=== PATIENT | female | born 2000 | race Two or more races ===

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

== ENCOUNTER → 2021-01-20 13:29 | Outpatient (CLI) | payer OTHER, MEDICAID, SELFPAY | PROVIDERS: PCP Pediatrics; Referring Provider Pediatrics; Visit Provider Pediatrics | DX: Z20.822 Contact with and (suspected) exposure to COVID-19 (principal) | CPT/HCPCS: 87635; C9803; U0005; U0003 ==

== ENCOUNTER 2021-01-25 00:21 | Emergency (ER) | payer MEDICAID, SELFPAY ==
[2021-01-25 00:21] VITALS: BP 124/79; PULSE 77; RESP 18; TEMP 36.4; O2SAT 100; BMI 24.5
--- NOTE | 2021-01-25 01:26 | EKG12_ITS ---
Test Reason : CP Blood Pressure : / mmHG Vent. Rate : 079 BPM Atrial Rate : 079 BPM P-R Int : 130 ms QRS Dur : 068 ms QT Int : 382 ms P-R-T Axes : 061 060 014 degrees QTc Int : 438 ms Normal sinus rhythm with sinus arrhythmia Normal ECG Confirmed by SALLY COOL, HUBER ([id number]), city editor BRITTA SHI ([id number]) on 01/31/2021 6:28:00 AM Referred By: BAY Confirmed By:HUBER ZAVALA MD
--- NOTE | 2021-01-25 01:31 | EX.ED.DYSGE1 ---
HPI History of Present Illness Chief Complaint: Chest Pain Narrative Narrative: Patient is a 21-year-old female who stays for the past few days she has had intermittent bouts of palpitations and states she has sharp chest pain when this occurs. She denies any illicit drug use but does states she uses a decent amount of caffeine daily and also vapes nicotine daily. She states she feels the symptoms have slowly worsened and she is concerned this could be cardiac so she presents for evaluation [facility] Medical History Anxiety Asthma Depression Endometriosis Migraine Pelvic pain Pott disease Thyroid disease Home Medications dicyclomine [Bentyl] 10 mg PO TID PRN 11/22/20 [History Last Taken Unknown] Allergy/AdvReac Type Severity Reaction Status Date / Time silicone Allergy Rash Verified 11/22/20 10:16 lactose AdvReac Upset Verified 11/22/20 10:16 Stomach NASAL SPRAY Allergy Hives Uncoded 11/22/20 10:16 Social History Smoking Status: Current every day smoker tobacco type: cigarettes and e-cigarettes ROS ROS ED Constitutional Constitutional ED: Denies chills or fever(s) ENT ENT ED: Denies sore throat Cardiovascular Cardiovascular: Reports chest pain, palpitations and racing heartbeat Respiratory/Chest Respiratory/Chest: Denies cough or dyspnea Gastrointestinal Gastrointestinal: Denies abdominal pain, diarrhea, nausea or vomiting Genitourinary Genitourinary ED: Denies dysuria Musculoskeletal Musculoskeletal: Denies myalgias Integumentary Denies rash Neurologic Neurologic: Denies headache(s) Hematologic/Lymphatic Hematologic/Lymphatic: Denies easy bleeding or easy bruising EXAM Physical Exam Const Vital Signs: 01/25/21 00:21 Temperature 97.5 F L Temperature Source Temporal Pulse Rate 77 Respiratory Rate 18 Blood Pressure 124/79 H Blood Pressure Mean 94 Pulse Ox 100 Oxygen Delivery Method Room Air Positive well nourished and well developed General Appearance ED: well developed HEENT Reports moist mucous membranes Eyes PERRL and EOMs intact bilaterally Neck supple Neck Narrative: No nodular goiter noted along the thyroid Chest Wall palpation of chest normal Resp normal respiratory effort and clear to auscultation bilaterally Cardio regular rate and regular rhythm GI normal to inspection, nondistended, normoactive bowel sounds, non-tender and non-distended Auscultation: normoactive bowel sounds Palpation: soft Extremity normal to inspection Extremity Narrative: No asymmetric or pitting edema edema negative homicide bilaterally Neuro oriented x3 and CN's II-XII intact bilaterally Sensorium / Orientation: alert Motor Exam: strength 5/5 throughout Psych mental status grossly normal Skin no rashes or lesions noted MDM MDM MDM Narrative Medical decision making narrative: Patient presented to the ER with complaint of palpitations. She is low risk for cardiac disease but with her report of palpitations and chest discomfort we did perform a basic cardiac workup. EKG is sinus rhythm and labs revealed no clinically significant findings. Chest x-ray also reveals no acute lung pathology. She was kept on the monitor and remained in sinus rhythm for her entire ears today without any dysrhythmia changes noted. Therefore at this time she is safe for discharging and follow-up with her family doctor as well as bandoleer straightener stamper for further evaluation if symptoms persist Lab Data Attestation: I reviewed the patient's lab results. Labs: Laboratory Results - last 24 hr 01/25/21 01/25/21 01:35 01:35 WBC 7.1 RBC 5.09 Hgb 12.4 Hct 38.9 MCV 76.4 L MCH 24.4 L MCHC 31.9 L RDW Std Deviation 36.8 RDW Coeff of Anoop 13.2 Plt Count 349 MPV 8.5 Immature Gran % (Auto) 0.100 Neut % (Auto) 47.9 Lymph % (Auto) 40.1 [place] % (Auto) 10.5 H Eos % (Auto) 1.0 Baso % (Auto) 0.4 Absolute Neuts (auto) 3.4 Absolute Lymphs (auto) 2.83 Nucleated RBC % 0 Sodium 141 Potassium 3.7 Chloride 107 Carbon Dioxide 28.0 Anion Gap 6 BUN 10 Creatinine 0.82 Estim Creat Clear Calc 94.50 Est GFR (MDRD) Af Amer 115 Est GFR (MDRD) Non-Af 95 BUN/Creatinine Ratio 12.2 Glucose 82 Calcium 8.9 Magnesium 2.1 Troponin I High Sens 4 TSH 4.48 H Radiography Diagnostic Testing: Clinical Impression(s) from Imaging Studies Chest X-Ray 01/25/21 01:54 IMPRESSION: No demonstrated acute cardiopulmonary process. Electronically Signed: Carey Tomlinson MD at 2:14 EDT Tel , Service support , Discharge Plan Triage Chief Complaint: Chest Pain ED Provider: Bryant Reyes Dx/Rx/DC Orders Clinical Impression: Heart palpitations Instructions: ED Palpitations Prescriptions: No Action dicyclomine [Bentyl] 10 mg Capsule 10 mg PO TID PRN (Reason: Pain) RF: 0 Primary Care Provider: Maki Pringle Referrals: Maki Pringle MD [Primary Care Provider] - Disposition Disposition: Home, Self Care
[2021-01-25 01:39] LABS: Absolute Lymphocyte Count 2.83 X10^3/uL (0.83-4.51); Absolute Neutrophil Count 3.4 X10^3/uL (2.0-7.7); Basophil# 0.03 X10^3/uL; Basophil% 0.4 % (0-1); Eosinophil# 0.07 X10^3/uL; Hematocrit 38.9 % (37-47); Hemoglobin 12.4 g/dL (12.0-15.0); Lymphocyte # 2.83 X10^3/ul (0.83-4.51); Lymphocyte % 40.1 % (19-41); Mean Corp Hgb Conc 31.9 g/dL (32-36); Mean Corpuscular Hgb 24.4 pg (27.0-32.0); Mean Corpuscular Volume 76.4 fL (81-99); Mean Platelet Vol. 8.5 fl (6.2-12.0); Monocyte# 0.74 X10^3/uL; Monocyte% 10.5 % (0-10); NRBC Flagged by Analyzer 0 % (0-5); Neutrophil # 3.37 X10^3/uL (2.7-7.7); Neutrophil % 47.9 % (47-70); Platelet Count 349 K/mm3 (150-450); RBC Distribution Width CV 13.2 % (11.6-14.6); RBC Distribution Width SD 36.8 fl (35.1-43.9); Red Blood Count 5.09 M/mm3 (4.2-5.4); White Blood Count 7.1 K/mm3 (4.4-11.0)
--- NOTE | 2021-01-25 01:54 | RAD_ITS ---
STUDY: X-RAY CHEST REASON FOR EXAM: Female, 21 years old. chest pain TECHNIQUE: Frontal and lateral views of the chest. COMPARISON: None. FINDINGS: The lungs are clear and expanded. There is no demonstrated pleural abnormality. Normal size heart. Normal mediastinum and dennis. Normal visualized pulmonary arteries. Normal visualized aortic arch and descending thoracic aorta. There is a levoscoliosis of the thoracic spine. Normal visualized ribs, clavicles, and shoulders. There is no demonstrated abnormality of the visualized soft tissue structures of the upper abdomen. RAD/Chest PA and Lateral IMPRESSION: No demonstrated acute cardiopulmonary process. Electronically Signed: Carey Tomlinson MD at 2:14 EDT Tel , Service support ,
[2021-01-25 02:10] LABS: Anion Gap 6 (5-15); BUN 10 mg/dL (7-18); BUN/Creat Ratio 12.2 RATIO (10-20); Calcium,Total 8.9 mg/dL (8.5-10.1); Chloride 107 mmol/L (98-107); Creatinine, Serum 0.82 mg/dL (0.55-1.02); EST Glomerular Filtration Rate 95 mL/min (>60); Est Glom Filt Rate - Afr Amer 115 mL/min (>60); Glucose 82 mg/dL (74-106); Magnesium 2.1 mg/dL (1.6-2.6); Potassium 3.7 mmol/L (3.5-5.1); Sodium Level 141 mmol/L (136-145); Thyroid Stim Hormone (TSH) 4.48 uIU/mL (0.358-3.74); Troponin-I HS 4 pg/mL (3.0-54.0)
[2021-01-25 02:53] VITALS: BP 101/75; PULSE 66; RESP 22; O2SAT 99
== END 2021-01-25 02:54 | disposition home or self-care (01) ==
PROVIDERS: Emergency Provider Emergency Medicine; PCP Pediatrics
DX: R00.2 Palpitations (principal); F17.210 Nicotine dependence, cigarettes, uncomplicated; F32.9 Major depressive disorder, single episode, unspecified; F41.9 Anxiety disorder, unspecified; J45.909 Unspecified asthma, uncomplicated
CPT/HCPCS: 71046; 80048; 83735; 84443; 84484; 85025; 93005; 99283; A4216

== ENCOUNTER 2021-04-21 14:11 | Outpatient (CLI) | payer MEDICAID, SELFPAY ==
--- NOTE | 2021-04-21 14:14 | RAD_ITS ---
STUDY: X-RAY - ABDOMEN/PELVIS REASON FOR EXAM: Female, 21 years old. PAIN TECHNIQUE: Single AP view of the abdomen / pelvis. COMPARISON: None. FINDINGS: Normal visualized lung bases. There is an abundance of fecal material throughout the colon. The visualized liver, spleen and kidneys are grossly normal in size and morphology. Normal soft tissue structures. Normal visualized osseous structures. RAD/Abdomen Single View IMPRESSION: Large amount of fecal material is seen throughout the colon. Electronically Signed: Eugenio Weathers MD at 14:44 EST , Service support ,
== END 2021-04-21 23:59 | disposition short-term general hospital (02) ==
PROVIDERS: PCP Pediatrics; Referring Provider Pediatrics; Visit Provider Pediatrics
DX: R10.84 Generalized abdominal pain (principal)
CPT/HCPCS: 74018

== ENCOUNTER 2021-05-22 13:16 | Outpatient (CLI) | payer MEDICAID, SELFPAY | END 2021-05-22 23:59 | disposition home or self-care (01) | LOC: LAB.FUTURE 13:18 | PROVIDERS: PCP Pediatrics; Referring Provider Pediatrics; Visit Provider Pediatrics | DX: R10.84 Generalized abdominal pain (principal) ==

== ENCOUNTER 2021-06-14 20:37 | Emergency (ER) | payer MEDICAID, SELFPAY ==
[2021-06-14 20:38] VITALS: BP 133/85; PULSE 79; RESP 18; TEMP 36.3; O2SAT 100; BMI 28.3
--- NOTE | 2021-06-14 21:12 | EDS_ITS ---
HPI History of Present Illness Chief Complaint: General Illness Informant: patient Narrative Narrative: Patient presenting worsening occipital headache symptoms this evening. On and off symptoms for months. States shooting sensations lasting 3 minutes. Mild blurred vision. History of migraines. However states this feels a little different she had image studies she states 3 years ago. From records had an MRI that was normal. She recovering from a upper respiratory illness this past week had headache sinus congestion sore throat Home Covid negative urgent care 4 days ago flu Covid also negative. Sore throat is improving however headaches been worsening. History of anxiety and depression currently not taking medications. History of asthma. Denies cough or dyspnea. Last menstrual period 2 weeks ago. States has been having extreme nausea with her headaches. No photophobia. Prior similar symptoms: Yes PFSH PFSH Medical History Anxiety Asthma Depression Endometriosis Migraine Pelvic pain Pott disease Thyroid disease Home Medications albuterol sulfate INHALATION 06/14/21 [History Last Taken Unknown] epinephrine 06/14/21 [History Last Taken Unknown] prazosin 06/14/21 [History Last Taken Unknown] Allergy/AdvReac Type Severity Reaction Status Date / Time sertraline [From Zoloft] Allergy Anaphylaxis Verified 06/14/21 20:41 silicone Allergy Rash Verified 11/22/20 10:16 lactose AdvReac Upset Verified 11/22/20 10:16 Stomach NASAL SPRAY Allergy Hives Uncoded 11/22/20 10:16 Social History Smoking Status: Current every day smoker tobacco type: cigarettes and e- cigarettes ROS ROS ED Constitutional Constitutional ED: Denies chills, fever(s) or sweats Eyes Eyes: Denies change in vision ENT ENT ED: Denies dysphagia or sore throat Cardiovascular Cardiovascular: Denies chest pain, leg edema, palpitations or racing heartbeat Respiratory/Chest Respiratory/Chest: Denies cough, dyspnea or dyspnea on exertion Gastrointestinal Gastrointestinal: Reports nausea; Denies abdominal pain, diarrhea or vomiting Genitourinary Genitourinary ED: Denies dysuria, hematuria or urinary frequency Musculoskeletal Musculoskeletal: Denies back pain, extremity pain or neck pain Integumentary Denies rash or wounds Neurologic Neurologic: Reports headache(s); Denies paresthesias or weakness EXAM Physical Exam Const Vital Signs: 06/14/21 20:38 06/14/21 20:42 Temperature 97.3 F L Temperature Source Temporal Pulse Rate 79 Respiratory Rate 18 Respiratory Effort Normal Respiratory Pattern Normal Blood Pressure 133/85 H Blood Pressure Mean 101 Pulse Ox 100 Oxygen Delivery Method Room Air Positive well nourished and well developed General Appearance ED: well developed and NAD HEENT Reports moist mucous membranes normocephalic and atraumatic Eyes PERRL, EOMs intact bilaterally and conjunctivae normal General Eye ED: Yes normal appearance of both eyes Neck no lymphadenopathy and supple Neck Narrative: No meningismus. General: Negative for tenderness Chest Wall Chest: Negative for tenderness Resp normal respiratory effort and normal air movement Effort and Inspection: symmetric chest movement; Negative for respiratory distress Cardio regular rate, regular rhythm and no murmurs Peripheral Pulses: pulses 2+ throughout GI normal to inspection, nondistended, normoactive bowel sounds and non-tender Palpation: Negative for guarding or rebound tenderness present Back/Spine no CVA tenderness and no thoracic nor lumbar tenderness Extremity normal to inspection General Extremety ED: Negative for edema or tenderness General Extremity: Negative for edema Neuro oriented x3 and no sensory deficits noted Sensorium / Orientation: awake and alert Skin no rashes or lesions noted and no wounds MDM MDM MDM Narrative Medical decision making narrative: Patient vital stable no focal deficits no meningismus. Reports migraine symptoms little different than previously. She has been having on and off symptoms for months. Discussed imaging for evaluation due to different symptoms she agreed. She is treated with IV fluids Reglan Benadryl however reported per nursing patient became more anxious stating she wanted to leave. I discussed with the patient this possibly side effects of medications and would give more Benadryl. She understands this. She is alert and oriented x3 she declined any additional medications. She states nursing told her CT scan result to be 2 hours from results and she did not want to stay in the department for this long. She is currently capable of making decisions for herself, patient signed out AGAINST MEDICAL ADVICE. Discussed returning for reevaluation. Note she did have a normal MRI of her brain in 2019. Discharge Plan Triage Chief Complaint: General Illness ED Provider: Pete Basilio Dx/Rx/DC Orders Clinical Impression: Headache Instructions: Self-Care for Headaches Prescriptions: No Action prazosin 1 mg capsule RF: 0 epinephrine 0.3 mg/0.3 mL auto-injector RF: 0 albuterol sulfate 90 mcg/actuation HFA aerosol inhaler INHALATION RF: 0 Primary Care Provider: Care Physician,No Primary Referrals: Sury Catherine [NON-STAFF] - 1 Day Care Physician,No Primary [Primary Care Provider] - Activity Restrictions/Additional Instructions: You signed out AGAINST MEDICAL ADVICE. Return if you would like reevaluation. Disposition Disposition: Against Medical Advice Discharge Date/Time: 06/14/21 21:51
[2021-06-14] MEDS: 0.9% Normal Saline 1,000 ML 999 ML IV (21:20)
[2021-06-14] MEDS: DiphenhydrAMINE 50 MG/ML Syringe 25 MG IV (21:20)
[2021-06-14] MEDS: Metoclopramide 10 MG/2 ML Vial IV (21:20)
== END 2021-06-14 21:51 | disposition left against medical advice (07) ==
PROVIDERS: Emergency Provider Emergency Medicine; Visit Provider Emergency Medicine
DX: J02.9 Acute pharyngitis, unspecified (principal); R51.9 Headache, unspecified; F17.210 Nicotine dependence, cigarettes, uncomplicated; F41.9 Anxiety disorder, unspecified; R11.0 Nausea
CPT/HCPCS: 96361; 96374; 96375; 99282; J7030; A4216

== ENCOUNTER 2021-07-15 13:57 | Emergency (ER) | payer MEDICAID, SELFPAY ==
[2021-07-15 13:58] VITALS: BP 153/98; PULSE 81; RESP 18; TEMP 36.7; O2SAT 96; BMI 29.0
--- NOTE | 2021-07-15 14:12 | EDS_ITS ---
HPI History of Present Illness Chief Complaint: Hypertension Informant: patient Onset/Context/Timing Onset: Today Current Severity: Mild Maximum Severity: Mild Narrative Narrative: 21-year-old female history of anxiety and depression. Pots syndrome. States that today she had elevated blood pressure. She had a mild nosebleed which is since resolved. No history of hypertension. She denies other complaints. Prior similar symptoms: No Recent Illness/Hospitalization: No PFSH PFSH Medical History Anxiety Asthma Depression Endometriosis Migraine Pelvic pain Pott disease Thyroid disease Home Medications albuterol sulfate INHALATION 06/14/21 [History Last Taken Unknown] epinephrine 06/14/21 [History Last Taken Unknown] prazosin 06/14/21 [History Last Taken Unknown] Allergy/AdvReac Type Severity Reaction Status Date / Time sertraline [From Zoloft] Allergy Anaphylaxis Verified 07/15/21 14:00 silicone Allergy Rash Verified 07/15/21 14:00 lactose AdvReac Upset Verified 07/15/21 14:00 Stomach NASAL SPRAY Allergy Hives Uncoded 07/15/21 14:00 Social History Smoking Status: Current every day smoker tobacco type: cigarettes and e-ci garettes ROS ROS ED ROS Narrative Nosebleed. Review of Systems ROS Unobtainable: Denies due to encephalopathy Constitutional Constitutional ED: Denies fever(s) Eyes Eyes: Denies change in vision ENT ENT ED: Denies ear pain Cardiovascular Cardiovascular: Denies chest pain Respiratory/Chest Respiratory/Chest: Denies dyspnea Gastrointestinal Gastrointestinal: Denies abdominal pain Genitourinary Genitourinary ED: Denies dysuria Musculoskeletal Musculoskeletal: Denies myalgias Integumentary Denies rash Neurologic Neurologic: Reports headache(s) Psychiatric Psychiatric: Denies depression Endocrine Endocrinology: Denies polyuria Allergic/Immunologic Allergic/Immunologic ED: Denies urticaria EXAM Physical Exam Narrative Exam Narrative: 21-year-old female no acute distress. Sitting upright in bed. Blood pressure is elevated at 153/98 otherwise unremarkable. H EENT exam unremarkable atraumatic. Pupils round reactive light. No facial droop. Normal speech. Lungs clear. Heart regular rhythm. Abdomen soft nontender. Moving all 4 extremities. No edema. Neurologically awake and alert with no focal motor deficits. NIH is 0. Const Vital Signs: 07/15/21 13:58 Temperature 98.1 F Temperature Source Temporal Pulse Rate 81 Respiratory Rate 18 Blood Pressure 153/98 H Blood Pressure Mean 116 Pulse Ox 96 Positive well nourished and well developed; Negative for obese, cachectic, contractures or unkempt General Appearance ED: well developed and NAD; Negative for unkempt, cachectic, contractures, cyanotic, diaphoretic or pallor Nutritional Appearance: Negative for cachectic or obese HEENT Reports moist mucous membranes Negative for trauma or tenderness Eyes PERRL and EOMs intact bilaterally General Eye ED: Negative for pale conjunctiva or scleral icterus Neck no lymphadenopathy, supple and no JVD General: Negative for tenderness Chest Wall inspection of chest normal and palpation of chest normal Resp normal respiratory effort and clear to auscultation bilaterally Effort and Inspection: Negative for pain with movement Auscultation: Negative for rales, rhonchi or wheezes Cardio regular rate, regular rhythm, S1 normal heart sound, S2 normal heart sound and no murmurs GI normal to inspection, nondistended, normoactive bowel sounds, non-tender, non- distended and no masses Auscultation: normoactive bowel sounds Palpation: soft; Negative for tender or guarding Back/Spine no CVA tenderness General Back: Negative for CVA tenderness Extremity normal to inspection General Extremety ED: Negative for edema or tenderness General Extremity: Negative for edema Neuro oriented x3 and CN's II-XII intact bilaterally Sensorium / Orientation: alert; Negative for orientation impaired, lethargic or stuporous Motor Exam: strength 5/5 throughout Psych mental status grossly normal Appearance: Negative for unkempt Attitude: No agitated Mood & Affect: Negative for depressed, anxious or tearful Skin no rashes or lesions noted and no wounds General Skin Exam: Negative for jaundice or pallor MDM MDM MDM Narrative Medical decision making narrative: 21-year-old with elevated blood pressure without history. Exam benign. We will recheck the blood pressure. I explained to her she normally does not blood pressure problems. She can log these at home and follow-up with her primary care physician. Her exam otherwise is unremarkable. There is no bleeding of her nose at this time. Discharge Plan Triage Chief Complaint: Hypertension ED Provider: Ricco Bridges Dx/Rx/DC Orders Clinical Impression: BP (high blood pressure), Acute anterior epistaxis Instructions: ED Hypertension, To Be Confirmed, ED Epistaxis (Adult) Prescriptions: No Action prazosin 1 mg capsule RF: 0 epinephrine 0.3 mg/0.3 mL auto-injector RF: 0 albuterol sulfate 90 mcg/actuation HFA aerosol inhaler INHALATION RF: 0 Primary Care Provider: Care Physician,No Primary Referrals: Care Physician,No Primary [Primary Care Provider] - Sury Catherine [NON-STAFF] - 1 Week Activity Restrictions/Additional Instructions: Log your blood pressures twice daily. Follow-up with your primary care physician. I would not start you on blood pressure medication at this time. If the nose rebleeds hold direct pressure for 20 minutes. If unable to stop return. Disposition Disposition: Home, Self Care
[2021-07-15 14:18] VITALS: BP 143/81
[2021-07-15 14:19] VITALS: BP 143/81
== END 2021-07-15 14:26 | disposition home or self-care (01) ==
LOC: ED 14:25
PROVIDERS: Emergency Provider Emergency Medicine; Visit Provider Emergency Medicine
DX: R04.0 Epistaxis (principal); F41.9 Anxiety disorder, unspecified; F17.210 Nicotine dependence, cigarettes, uncomplicated; R03.0 Elevated blood-pressure reading, without diagnosis of hypertension
CPT/HCPCS: 99282

== ENCOUNTER 2021-07-31 15:44 | Emergency (ER) | payer MEDICAID, SELFPAY ==
[2021-07-31 15:45] VITALS: BP 152/92; PULSE 92; RESP 14; TEMP 36.6; O2SAT 100; BMI 28.8
--- NOTE | 2021-07-31 17:08 | EDS_ITS ---
HPI History of Present Illness Chief Complaint: Hypertension Informant: patient Onset/Context/Timing Onset: Month(s) Context: Gradual Onset Timing: Continuous Quality: Stabbing Location: Left chest Worsened by: Nothing Relieved by: Nothing Narrative Narrative: Patient presents with elevated blood pressure that has been getting worse over the past month. Patient states she checked her blood pressure at home today it was 156/138. Patient is on prazosin which has not been helping her blood pressures. Patient admits to some stabbing pain in her left chest. Patient denies nothing makes it better nothing makes it worse. Patient admits to some shortness of breath. Patient admits to some nausea. Patient also admits to some pain in her head, neck, and back. Patient denies any fevers or chills. PFSH PFS Medical History Anxiety Asthma Depression Endometriosis Migraine Pelvic pain Pott disease Thyroid disease Home Medications albuterol sulfate 2 puff INHALATION PRN PRN 06/14/21 [History Last Taken Unknown] epinephrine 1 mg IM PRN PRN 06/14/21 [History Last Taken Unknown] prazosin 1 mg PO BID 06/14/21 [History Last Taken Unknown] aripiprazole 2 mg PO QHS 07/31/21 [History Last Taken Unknown] ferrous sulfate 325 mg PO DAILY 07/31/21 [History Last Taken Unknown] Allergy/AdvReac Type Severity Reaction Status Date / Time sertraline [From Zoloft] Allergy Anaphylaxis Verified 07/31/21 15:47 silicone Allergy Rash Verified 07/31/21 15:47 lactose AdvReac Upset Verified 07/31/21 15:47 Stomach NASAL SPRAY Allergy Hives Uncoded 07/31/21 15:47 Social History Smoking Status: Current every day smoker tobacco type: cigarettes and e- cigarettes ROS ROS ED Constitutional Constitutional ED: Denies chills or fever(s) Eyes Eyes: Denies blurry vision or change in vision ENT ENT ED: Denies rhinorrhea or sore throat Cardiovascular Cardiovascular: Reports chest pain; Denies palpitations Respiratory/Chest Respiratory/Chest: Reports dyspnea; Denies cough Gastrointestinal Gastrointestinal: Reports nausea; Denies vomiting Genitourinary Genitourinary ED: Denies dysuria or hematuria Musculoskeletal Musculoskeletal: Reports back pain and neck pain Integumentary Denies abscess or rash Neurologic Neurologic: Reports headache(s); Denies weakness Allergic/Immunologic Allergic/Immunologic ED: Denies mouth swelling or urticaria EXAM Physical Exam Const Vital Signs: 07/31/21 15:45 07/31/21 17:55 07/31/21 19:05 Temperature 97.8 F Temperature Source Temporal Pulse Rate 92 79 83 Respiratory Rate 14 27 H 24 H Blood Pressure 152/92 H 138/92 H 118/83 H Blood Pressure Mean 112 107 94 Pulse Ox 100 99 99 Oxygen Delivery Method Room Air Room Air Room Air Positive well nourished and well developed General Appearance ED: well developed HEENT Reports moist mucous membranes Neck supple and no JVD Chest Wall Chest Narrative: There is tenderness to palpation over the left anterior chest wall. Resp normal respiratory effort and clear to auscultation bilaterally Cardio regular rate, regular rhythm and no murmurs GI normal to inspection, nondistended, normoactive bowel sounds and non-tender Palpation: soft Extremity normal to inspection General Extremety ED: Negative for edema or tenderness General Extremity: Negative for edema Neuro oriented x3, CN's II-XII intact bilaterally and no sensory deficits noted Sensorium / Orientation: alert Motor Exam: strength 5/5 throughout Psych mental status grossly normal Skin no rashes or lesions noted MDM MDM MDM Narrative Medical decision making narrative: EKG was obtained. On my interpretation, it showed a normal sinus rhythm with a rate of 76. [place] interval, QRS interval, and QTc intervals were all normal. [place] was normal. There are no acute ST or T wave changes. Portable 1 view chest x-ray was obtained. On my interpretation, lung [place] are clear. There is normal cardiac silhouette. Bony thorax is normal. There is no acute process noted. Radiologist also interpreted the x- ray and agrees. CBC was within normal limits. Comprehensive metabolic profile was within normal limits. High-sensitivity troponin was less than 3. Urinalysis does not show any evidence of urinary tract infection or hematuria. Patient's blood pressure was 118/83 on reevaluation. Patient is feeling better. Patient was instructed to continue to monitor her blood pressures and follow-up with her primary care physician in 3 to 5 days for further evaluation and management of her blood pressure. Patient understood and was agreeable with the plan. All questions were answered. Lab Data Attestation: I reviewed the patient's lab results. Labs: Laboratory Results - last 24 hr 07/31/21 07/31/21 07/31/21 16:15 16:15 17:30 WBC 6.0 RBC 5.32 Hgb 13.2 Hct 41.0 MCV 77.1 L MCH 24.8 L MCHC 32.2 RDW Std Deviation 36.9 RDW Coeff of Anoop 13.2 Plt Count 390 MPV 8.7 Immature Gran % (Auto) 0.200 Neut % (Auto) 61.2 Lymph % (Auto) 31.0 [place] % (Auto) 7.1 Eos % (Auto) 0.3 Baso % (Auto) 0.2 Absolute Neuts (auto) 3.7 Absolute Lymphs (auto) 1.87 Nucleated RBC % 0 Sodium 139 Potassium 3.4 L Chloride 108 H Carbon Dioxide 24.0 Anion Gap 7 BUN 7 Creatinine 0.77 Estim Creat Clear Calc 100.64 Est GFR (MDRD) Af Amer 122 Est GFR (MDRD) Non-Af 101 BUN/Creatinine Ratio 9.1 L Glucose 83 Calcium 9.0 Total Bilirubin 0.20 AST 12 L ALT 20 Alkaline Phosphatase 106 Troponin I High Sens < 3 L Total Protein 7.6 Albumin 3.5 Globulin 4.1 Albumin/Globulin Ratio 0.9 Urine Color Yellow Urine Clarity Clear Urine pH 7.0 Ur Specific [place] 1.010 Urine Protein Negative Urine Glucose (UA) Normal Urine Ketones Negative Urine Occult Blood Negative Urine Nitrite Negative Urine Bilirubin Negative Urine Urobilinogen Normal Ur Leukocyte Esterase 100 H Urine RBC 0 SEEN Urine WBC 0-5 SEEN Ur Squamous Epith Cells 0-5 SEEN Urine Bacteria 0 SEEN Urine Mucus 0 SEEN Radiography Chest X-Ray - ED: 1 View, Read by ED Physician, Read by Radiologist and No Acute Disease Diagnostic Testing: Clinical Impression(s) from Imaging Studies Chest X-Ray 07/31/21 17:24 IMPRESSION: No acute radiographic abnormalities. Electronically Signed: Karthik Sanchez MD at 17:43 EDT , EKG Initial EKG: Attestation: I personally reviewed and interpreted this EKG as follows: Interpretation: Sinus Rhythm (76) and No Acute Injury Pattern Discharge Plan Triage Chief Complaint: Hypertension ED Provider: Alexei Chakraborty Dx/Rx/DC Orders Clinical Impression: Elevated blood pressure reading, Hypokalemia Instructions: ED Hypertension, Established Prescriptions: No Action prazosin 1 mg capsule 1 mg PO BID RF: 0 epinephrine 0.3 mg/0.3 mL auto-injector 1 mg IM PRN PRN (Reason: Allergic Reaction) RF: 0 albuterol sulfate 90 mcg/actuation HFA aerosol inhaler 2 puff INHALATION PRN PRN (Reason: Wheezing) RF: 0 ferrous sulfate 325 mg (65 mg iron) tablet,delayed release (DR/EC) 325 mg PO DAILY RF: 0 aripiprazole 2 mg tablet 2 mg PO QHS RF: 0 Primary Care Provider: Sury Catherine Referrals: Sury Catherine [Primary Care Provider] - 3-5 Days Disposition Disposition: Home, Self Care
--- NOTE | 2021-07-31 17:13 | EKG12_ITS ---
Test Reason : HYPERTENSION Blood Pressure : / mmHG Vent. Rate : 076 BPM Atrial Rate : 076 BPM P-R Int : 142 ms QRS Dur : 068 ms QT Int : 364 ms P-R-T Axes : 049 033 001 degrees QTc Int : 409 ms Normal sinus rhythm with sinus arrhythmia Normal ECG Confirmed by REBECCA COOL, YOHANNES ([id number]), features editor BRITTA SHI ([id number]) on 08/01/2021 9:01:54 AM Referred By: DEVONTE Confirmed By:YOHANNES FERNANDEZ MD
--- NOTE | 2021-07-31 17:24 | RAD_ITS ---
INDICATION: Chest pain EXAMINATION/TECHNIQUE: X-RAY - XR Chest 1 View COMPARISON: 01/25/2021. FINDINGS: The lungs are clear. The cardiomediastinal silhouette is unremarkable. No pleural effusion or pneumothorax. No acute osseous abnormalities. RAD/Chest 1 View (Portable) IMPRESSION: No acute radiographic abnormalities. Electronically Signed: Karthik Sanchez MD at 17:43 EDT ,
[2021-07-31 17:28] LABS: Absolute Lymphocyte Count 1.87 X10^3/uL (0.83-4.51); Absolute Neutrophil Count 3.7 X10^3/uL (2.0-7.7); Basophil# 0.01 X10^3/uL; Basophil% 0.2 % (0-1); Eosinophil# 0.02 X10^3/uL; Eosinophils% 0.3 % (0-5); Hemoglobin 13.2 g/dL (12.0-15.0); Lymphocyte # 1.87 X10^3/ul (0.83-4.51); Mean Corp Hgb Conc 32.2 g/dL (32-36); Mean Corpuscular Hgb 24.8 pg (27.0-32.0); Mean Corpuscular Volume 77.1 fL (81-99); Mean Platelet Vol. 8.7 fl (6.2-12.0); Monocyte# 0.43 X10^3/uL; Monocyte% 7.1 % (0-10); NRBC Flagged by Analyzer 0 % (0-5); Neutrophil % 61.2 % (47-70); Platelet Count 390 K/mm3 (150-450); RBC Distribution Width CV 13.2 % (11.6-14.6); RBC Distribution Width SD 36.9 fl (35.1-43.9); Red Blood Count 5.32 M/mm3 (4.2-5.4)
[2021-07-31 17:43] LABS: ALB/GLOB Ratio 0.9 RATIO (0.9-2.4); AST(SGOT) 12 U/L (15-37); Alanine Aminotransfer ALT/SGPT 20 U/L (13-56); Albumin, Serum 3.5 g/dL (3.2-5.0); Alkaline Phosphatase 106 U/L (45-117); Anion Gap 7 (5-15); BUN 7 mg/dL (7-18); BUN/Creat Ratio 9.1 RATIO (10-20); Chloride 108 mmol/L (98-107); Creatinine, Serum 0.77 mg/dL (0.55-1.02); EST Glomerular Filtration Rate 101 mL/min (>60); Est Glom Filt Rate - Afr Amer 122 mL/min (>60); Estimated Creatinine Clearance 100.64 ml/min; Globulin 4.1 g/dL (2.2-4.2); Glucose 83 mg/dL (74-106); Potassium 3.4 mmol/L (3.5-5.1); Protein, Total 7.6 g/dL (6.4-8.2); Sodium Level 139 mmol/L (136-145); Troponin-I HS < 3 pg/mL (3.0-54.0)
[2021-07-31 17:51] LABS: Bacteria 0 SEEN /hpf (None Seen); Mucous, Urine 0 SEEN /hpf (<or=2+); Red Blood Cells-Urine 0 SEEN /hpf (0-5)
[2021-07-31 17:52] LABS: Color, Urine Yellow (Yellow); Glucose, Dipstick Normal (Normal); Ketone-Dipstick Negative (Negative); Leukocyte Esterase-Dipstick 100 /ul (Negative); Nitrite-Dipstick Negative (Negative); Occult Blood-Urine Negative /ul (Negative); Protein-Dipstick Negative (Negative); Urine Bilirubin Dipstick Negative (Negative); Urine Clarity Clear (Clear); Urine Urobilinogen Normal (Normal)
[2021-07-31 17:55] VITALS: BP 138/92; PULSE 79; RESP 27; O2SAT 99
[2021-07-31 17:58] LABS: Squamous Epithelial Cells - UA 0-5 SEEN /hpf (5-10); White Blood Cells 0-5 SEEN /hpf (0-5)
[2021-07-31 19:05] VITALS: BP 118/83; PULSE 83; RESP 24; O2SAT 99
[2021-07-31 19:52] VITALS: BP 121/78; PULSE 103
== END 2021-07-31 20:17 | disposition home or self-care (01) ==
PROVIDERS: Emergency Provider Emergency Medicine; Visit Provider Emergency Medicine
DX: R03.0 Elevated blood-pressure reading, without diagnosis of hypertension (principal); M54.9 Dorsalgia, unspecified; E87.6 Hypokalemia; F17.210 Nicotine dependence, cigarettes, uncomplicated; R51.9 Headache, unspecified; R11.0 Nausea; R06.02 Shortness of breath; J45.909 Unspecified asthma, uncomplicated
CPT/HCPCS: 71045; 80053; 81001; 84484; 85025; 93005; 99283

== ENCOUNTER → 2021-08-14 | Outpatient (CLI) | payer MEDICAID, SELFPAY ==
--- NOTE | 2021-08-14 11:35 | RAD_ITS ---
STUDY: X-RAY - ABDOMEN/PELVIS REASON FOR EXAM: Female, 21 years old. UNSPECIFIED ABDOMINAL PAIN TECHNIQUE: COMPARISON: None. FINDINGS: Normal visualized lung bases. There is an unremarkable bowel gas pattern. There is no demonstrated free abdominal air. The visualized liver, spleen and kidneys are grossly normal in size and morphology. Normal soft tissue structures. Normal visualized osseous structures. RAD/Abd Decub and/or Erect(Portabl IMPRESSION: Normal x-ray examination of the abdomen and pelvis. Electronically Signed: Robert Wu MD at 2:58 EDT ,
== END | disposition home or self-care (01) ==
LOC: RAD 11:28
PROVIDERS: Visit Provider Nurse Practitioner Adult Health
DX: R10.9 Unspecified abdominal pain (principal)
CPT/HCPCS: 74019

== ENCOUNTER 2021-09-07 20:13 | Emergency (ER) | payer MEDICAID, SELFPAY ==
[2021-09-07 20:14] VITALS: BP 146/91; PULSE 86; RESP 15; TEMP 36.8; O2SAT 100; BMI 27.8
--- NOTE | 2021-09-07 21:01 | EDS_ITS ---
HPI History of Present Illness Chief Complaint: Headache Narrative Narrative: 21-year-old female presenting with chronic headaches. She states has been going on for years, since she was a child. She was told when she was a child she had migraines. She did follow-up originally with a neurologist but states that her dates got switched around and she never followed up. She saw her primary care physician 3 weeks ago who scheduled a neurology appointment with a neurologist at [facility]. Patient states that this will be in September. She has had MRIs and CAT scans of her brain and there has been no findings. Patient has not had a fever, chills. She states that occasionally she feels lightheaded. She states she had COVID-19 3 weeks ago and she still has a persistent cough but is not short of breath. She describes her sputum is clear. [facility] Medical History Anxiety Asthma Depression Endometriosis Migraine Pelvic pain Pott disease Thyroid disease Home Medications albuterol sulfate 2 puff INHALATION PRN PRN 06/14/21 [History Last Taken Unknown] epinephrine 1 mg IM PRN PRN 06/14/21 [History Last Taken Unknown] prazosin 1 mg PO BID 06/14/21 [History Last Taken Unknown] aripiprazole 2 mg PO QHS 07/31/21 [History Last Taken Unknown] ferrous sulfate 325 mg PO DAILY 07/31/21 [History Last Taken Unknown] Allergy/AdvReac Type Severity Reaction Status Date / Time sertraline [From Zoloft] Allergy Anaphylaxis Verified 09/07/21 20:16 silicone Allergy Rash Verified 09/07/21 20:16 lactose AdvReac Upset Verified 09/07/21 20:16 Stomach NASAL SPRAY Allergy Hives Uncoded 09/07/21 20:16 Social History Smoking Status: Current every day smoker tobacco type: cigarettes and e- cigarettes ROS ROS ED Constitutional Constitutional ED: Denies chills or fever(s) Eyes Eyes: Denies blurry vision, diplopia or other ENT ENT ED: Denies rhinorrhea Cardiovascular Cardiovascular: Denies chest pain or palpitations Respiratory/Chest Respiratory/Chest: Denies cough or dyspnea Gastrointestinal Gastrointestinal: Denies abdominal pain, nausea or vomiting Genitourinary Genitourinary ED: Denies dysuria or hematuria Musculoskeletal Musculoskeletal: Denies arthralgias or myalgias Integumentary Denies rash Neurologic Neurologic: Reports headache(s); Denies weakness Psychiatric Psychiatric: Denies anxiety or depression EXAM Physical Exam Const Vital Signs: 09/07/21 20:14 Temperature 98.2 F Temperature Source Temporal Pulse Rate 86 Respiratory Rate 15 Blood Pressure 146/91 H Blood Pressure Mean 109 Pulse Ox 100 Oxygen Delivery Method Room Air Positive well nourished General Appearance ED: NAD HEENT Reports normocephalic and moist mucous membranes atraumatic Eyes PERRL and EOMs intact bilaterally Neck no lymphadenopathy, supple and no meningeal signs Resp normal respiratory effort and clear to auscultation bilaterally Cardio regular rate and regular rhythm GI non-tender Palpation: soft Neuro oriented x3, CN's II-XII intact bilaterally and no sensory deficits noted Sensorium / Orientation: awake and alert Speech: speech normal Motor Exam: strength 5/5 throughout Psych mental status grossly normal Skin Lesions: no lesions Rashes: no rashes MDM MDM MDM Narrative Medical decision making narrative: Patient presenting with chronic intermittent headaches which have been around since he is a child. [facility] in [facility]. She has no red flag signs or symptoms associated with a headache. She states that she does not have a history of migraines although it is listed in her medical history. When I asked her about this she states this was distant as a child. Patient also complains of persistent cough however on exam her lungs are clear. Oxygen is 100% on room air. Respiratory 15. I do not believe she needs any imaging here today. I recommended that she follow-up with a neurologist and her primary care physician. She was amenable to this. All questions were answered. Discharge stable condition. Impression: 1. Headache 2. Cough Lab Data Attestation: I reviewed the patient's lab results. Discharge Plan Triage Chief Complaint: Headache ED Provider: Jaylen Delgado Dx/Rx/DC Orders Instructions: ED Headache Unspecified Prescriptions: No Action prazosin 1 mg capsule 1 mg PO BID RF: 0 epinephrine 0.3 mg/0.3 mL auto-injector 1 mg IM PRN PRN (Reason: Allergic Reaction) RF: 0 albuterol sulfate 90 mcg/actuation HFA aerosol inhaler 2 puff INHALATION PRN PRN (Reason: Wheezing) RF: 0 ferrous sulfate 325 mg (65 mg iron) tablet,delayed release (DR/EC) 325 mg PO DAILY RF: 0 aripiprazole 2 mg tablet 2 mg PO QHS RF: 0 Primary Care Provider: [facility] Sury Queen Referrals: [facility],Sury Catherine [Primary Care Provider] - Disposition Disposition: Home, Self Care
== END 2021-09-07 21:09 | disposition home or self-care (01) ==
PROVIDERS: Emergency Provider Student in an Organized Health Care Education/Training Program; Visit Provider Student in an Organized Health Care Education/Training Program
DX: R05.9 Cough, unspecified (principal); R51.9 Headache, unspecified; F17.210 Nicotine dependence, cigarettes, uncomplicated; Z86.16 Personal history of COVID-19; J45.909 Unspecified asthma, uncomplicated
CPT/HCPCS: 99283

== ENCOUNTER 2021-09-18 22:35 | Emergency (ER) | payer MEDICAID, SELFPAY ==
[2021-09-18 22:36] VITALS: BP 139/95; PULSE 100; PULSE 88; RESP 21; TEMP 36.7; O2SAT 100; BMI 29.2
--- NOTE | 2021-09-18 22:49 | EKG12_ITS ---
Test Reason : CP Blood Pressure : / mmHG Vent. Rate : 086 BPM Atrial Rate : 086 BPM P-R Int : 136 ms QRS Dur : 072 ms QT Int : 374 ms P-R-T Axes : 053 027 -15 degrees QTc Int : 447 ms Normal sinus rhythm Nonspecific ST and T wave abnormality Abnormal ECG Confirmed by REBECCA COOL, YOHANNES ([id number]), metropolitan editor BRITTA SHI ([id number]) on 09/19/2021 1:37:35 PM Referred By: TUNG Confirmed By:YOHANNES FERNANDEZ MD
[2021-09-18 22:56] VITALS: O2SAT 98
[2021-09-18 23:00] LABS: Absolute Lymphocyte Count 2.73 X10^3/uL (0.83-4.51); Absolute Neutrophil Count 5.5 X10^3/uL (2.0-7.7); Basophil# 0.02 X10^3/uL; Basophil% 0.2 % (0-1); Eosinophil# 0.14 X10^3/uL; Eosinophils% 1.6 % (0-5); Hematocrit 41.4 % (37-47); Hemoglobin 13.3 g/dL (12.0-15.0); Lymphocyte # 2.73 X10^3/ul (0.83-4.51); Lymphocyte % 30.4 % (19-41); Mean Corp Hgb Conc 32.1 g/dL (32-36); Mean Corpuscular Hgb 24.4 pg (27.0-32.0); Mean Corpuscular Volume 76.1 fL (81-99); Mean Platelet Vol. 8.7 fl (6.2-12.0); Monocyte# 0.58 X10^3/uL; Monocyte% 6.5 % (0-10); NRBC Flagged by Analyzer 0 % (0-5); Neutrophil # 5.49 X10^3/uL (2.7-7.7); Neutrophil % 61.1 % (47-70); Platelet Count 408 K/mm3 (150-450); RBC Distribution Width CV 13.8 % (11.6-14.6); RBC Distribution Width SD 37.5 fl (35.1-43.9); Red Blood Count 5.44 M/mm3 (4.2-5.4)
[2021-09-18 23:13] LABS: D-Dimer Quantitative (DVT/PE) < 0.27 FEU/ug/m (0.27-0.49)
--- NOTE | 2021-09-18 23:14 | EDS_ITS ---
HPI History of Present Illness Chief Complaint: Chest Pain Informant: patient Narrative Narrative: Presents for evaluation of worsening chest pain since 4:00 persistent waxing waning. Round lab in a.m. had palpitations and elevated blood pressure. She took her prazosin. It did help her blood pressure. States however chest pain is pressure has been persistent going into her neck. Vapes. Denies recent travel or surgeries. She does get Depo shots. She had COVID 1 to 2 months ago. She has asthma. She reports dyspnea however no wheeze or cough. No history of PE or DVT. Reports her first cousin had SC at age 35. Both grandparents were in their 40s. She took an aspirin this morning. Denies lightheaded symptoms. No syncopal episodes. Prior Similar Symptoms: Yes CVD Risk Factors: Positive for Hypertension, Family History 1' </=55 and Smoking; Negative for Diabetes and Hypercholesterolemia PE Risk Factors: Negative for Recent Travel/Surgery, Recent Immobilization, Prior DVT or PE and Cancer [facility] Medical History Anxiety Asthma Depression Endometriosis Migraine Pelvic pain Pott disease Thyroid disease Home Medications albuterol sulfate 2 puff INHALATION PRN PRN 06/14/21 [History Last Taken Unknown] epinephrine 1 mg IM PRN PRN 06/14/21 [History Last Taken Unknown] prazosin 1 mg PO BID 06/14/21 [History Last Taken Unknown] aripiprazole 2 mg PO QHS 07/31/21 [History Last Taken Unknown] ferrous sulfate 325 mg PO DAILY 07/31/21 [History Last Taken Unknown] Allergy/AdvReac Type Severity Reaction Status Date / Time sertraline [From Zoloft] Allergy Anaphylaxis Verified 09/18/21 23:14 silicone Allergy Rash Verified 09/18/21 23:14 lactose AdvReac Upset Verified 09/18/21 23:14 Stomach NASAL SPRAY Allergy Hives Uncoded 09/18/21 23:14 Social History Smoking Status: Current every day smoker tobacco type: cigarettes and e- cigarettes ROS ROS ED Constitutional Constitutional ED: Denies chills, fever(s) or sweats Eyes Eyes: Denies change in vision ENT ENT ED: Denies dysphagia or sore throat Cardiovascular Cardiovascular: Reports chest pain and palpitations; Denies leg edema or racing heartbeat Respiratory/Chest Respiratory/Chest: Reports dyspnea; Denies cough or dyspnea on exertion Gastrointestinal Gastrointestinal: Denies abdominal pain, diarrhea, nausea or vomiting Genitourinary Genitourinary ED: Denies dysuria, hematuria or urinary frequency Musculoskeletal Musculoskeletal: Denies back pain, extremity pain or neck pain Integumentary Denies rash or wounds Neurologic Neurologic: Denies headache(s), paresthesias or weakness EXAM Physical Exam Const Vital Signs: 09/18/21 22:36 09/18/21 22:56 09/18/21 23:44 Temperature 98.1 F Temperature Source Temporal Pulse Rate 88 66 Respiratory Rate 21 H 21 H Blood Pressure 139/95 H 108/67 Blood Pressure Mean 109 80 Pulse Ox 100 98 100 Oxygen Delivery Method Room Air Room Air Room Air Positive well nourished and well developed General Appearance ED: well developed and NAD HEENT Reports moist mucous membranes normocephalic and atraumatic Eyes PERRL, EOMs intact bilaterally and conjunctivae normal General Eye ED: Yes normal appearance of both eyes Neck no lymphadenopathy and supple General: Negative for tenderness Chest Wall Chest: Negative for tenderness Resp normal respiratory effort and normal air movement Effort and Inspection: symmetric chest movement; Negative for respiratory distress Cardio regular rate, regular rhythm and no murmurs Peripheral Pulses: pulses 2+ throughout GI normal to inspection, nondistended, normoactive bowel sounds and non-tender Palpation: Negative for guarding or rebound tenderness present Back/Spine no CVA tenderness and no thoracic nor lumbar tenderness Extremity normal to inspection General Extremety ED: Negative for edema or tenderness General Extremity: Negative for edema Neuro oriented x3 and no sensory deficits noted Sensorium / Orientation: awake and alert Skin no rashes or lesions noted and no wounds Heart Score History: Slightly/Non-Suspicious ECG: Nonspecific Repolarization Age: </= 45 years Risk Factors: 1 or 2 Risk Factors Troponin: </= Normal Limit Score: 2 MDM MDM MDM Narrative Medical decision making narrative: Patient EKG chronic changes with T wave inversions inferior leads. Cardiac work-up negative troponin less than 3. Negative within the algorithm along with negative a 6 hours of pain less likely cardiac in nature. Low risk Wells criteria for PE with vaping and on oral contraceptive along with recent COVID. D-dimer negative. Two-view chest x-ray obtained reviewed by myself and read by radiology shows no acute process. Labs potassium 3.1. Orally replaced due to palpitation symptoms. Heart score is a 2. She is reassured. Discussed avoiding vaping, discussed avoiding caffeine and energy drinks. She will follow-up with her PCP for further testing as needed. Return precautions. All questions were answered. Lab Data Attestation: I reviewed the patient's lab results. Labs: Laboratory Results - last 24 hr 09/18/21 09/18/21 09/18/21 22:40 22:40 22:40 WBC 9.0 RBC 5.44 H Hgb 13.3 Hct 41.4 MCV 76.1 L MCH 24.4 L MCHC 32.1 RDW Std Deviation 37.5 RDW Coeff of Anoop 13.8 Plt Count 408 MPV 8.7 Immature Gran % (Auto) 0.200 Neut % (Auto) 61.1 Lymph % (Auto) 30.4 Clare % (Auto) 6.5 Eos % (Auto) 1.6 Baso % (Auto) 0.2 Absolute Neuts (auto) 5.5 Absolute Lymphs (auto) 2.73 Nucleated RBC % 0 D-Dimer Quant (PE/DVT) < 0.27 L Sodium 137 Potassium 3.1 L Chloride 106 Carbon Dioxide 23.0 Anion Gap 8 BUN 8 Creatinine 0.82 Estim Creat Clear Calc 94.50 Est GFR (MDRD) Af Amer 113 Est GFR (MDRD) Non-Af 94 BUN/Creatinine Ratio 9.7 L Glucose 113 H Calcium 9.2 Troponin I High Sens < 3 L HCG, Quant 09/18/21 22:40 WBC RBC Hgb Hct MCV MCH MCHC RDW Std Deviation RDW Coeff of Anoop Plt Count MPV Immature Gran % (Auto) Neut % (Auto) Lymph % (Auto) Clare % (Auto) Eos % (Auto) Baso % (Auto) Absolute Neuts (auto) Absolute Lymphs (auto) Nucleated RBC % D-Dimer Quant (PE/DVT) Sodium Potassium Chloride Carbon Dioxide Anion Gap BUN Creatinine Estim Creat Clear Calc Est GFR (MDRD) Af Amer Est GFR (MDRD) Non-Af BUN/Creatinine Ratio Glucose Calcium Troponin I High Sens HCG, Quant < 1 Radiography Diagnostic Testing: Clinical Impression(s) from Imaging Studies Chest X-Ray 09/18/21 23:30 IMPRESSION: No acute cardiopulmonary disease or interval change. Electronically Signed: Feliciano Case DO at 23:45 EDT Reading Location ID and State: [address] [place] [address] Tel [phone], Service support , EKG Initial EKG: Attestation: I personally reviewed and interpreted this EKG as follows: Comments: Sinus rate of 86, no ST changes there are T wave inversions in 3 and aVF. Similar findings from July 2021. Discharge Plan Triage Chief Complaint: Chest Pain ED Provider: Pete Basilio Dx/Rx/DC Orders Clinical Impression: Chest pain, Palpitation, Hypokalemia Instructions: ED Chest Pain, Uncertain Cause, ED Hypokalemia, ED Palpitations Prescriptions: No Action prazosin 1 mg capsule 1 mg PO BID RF: 0 epinephrine 0.3 mg/0.3 mL auto-injector 1 mg IM PRN PRN (Reason: Allergic Reaction) RF: 0 albuterol sulfate 90 mcg/actuation HFA aerosol inhaler 2 puff INHALATION PRN PRN (Reason: Wheezing) RF: 0 ferrous sulfate 325 mg (65 mg iron) tablet,delayed release (DR/EC) 325 mg PO DAILY RF: 0 aripiprazole 2 mg tablet 2 mg PO QHS RF: 0 Primary Care Provider: Sara Ellington NP Referrals: Sara Ellington NP, [facility] [Primary Care Provider] - 3-5 Days Activity Restrictions/Additional Instructions: Cardiac work-up negative D-dimer negative chest x-ray negative. Potassium 3.1 orally replaced. Avoid energy drinks or caffeine in order not to to stimulate palpitations. Follow-up with your doctor for further testing. Return if anything worsens. Disposition Disposition: Home, Self Care Discharge Date/Time: 09/18/21 23:53
--- NOTE | 2021-09-18 23:30 | RAD_ITS ---
STUDY: X-RAY CHEST REASON FOR EXAM: Female, 21 years old. Chest pain. Shortness of breath. Dizziness. Blood pressure was high today. TECHNIQUE: PA and lateral views of the chest. COMPARISON: 07/31/2021. FINDINGS: The lungs are clear and expanded. There is no demonstrated pleural abnormality. Normal size heart. Normal mediastinum and dennis. Normal visualized pulmonary arteries. Normal visualized aortic arch and descending thoracic aorta. Normal visualized thoracic spine. Normal visualized ribs, clavicles, and shoulders. There is no demonstrated abnormality of the visualized soft tissue structures of the upper abdomen. RAD/Chest PA and Lateral IMPRESSION: No acute cardiopulmonary disease or interval change. Electronically Signed: Feliciano Case DO at 23:45 EDT ,
[2021-09-18] MEDS: Potassium Chloride Oral Tablet 20 MEQ 40 MEQ PO (23:43)
[2021-09-18 23:44] VITALS: BP 108/67; PULSE 66; RESP 21; O2SAT 100
[2021-09-18 23:54] LABS: hCG Titer Quant., Serum < 1 mIU/mL (1-3)
== END 2021-09-18 23:53 | disposition home or self-care (01) ==
PROVIDERS: Emergency Provider Emergency Medicine; PCP Nurse Practitioner Adult Health; Visit Provider Emergency Medicine
DX: R07.9 Chest pain, unspecified (principal); J45.909 Unspecified asthma, uncomplicated; E87.6 Hypokalemia; R00.2 Palpitations; F17.210 Nicotine dependence, cigarettes, uncomplicated; I10 Essential (primary) hypertension; R94.31 Abnormal electrocardiogram [ECG] [EKG]; Z86.16 Personal history of COVID-19; F17.290 Nicotine dependence, other tobacco product, uncomplicated; Z79.899 Other long term (current) drug therapy
CPT/HCPCS: 80048; 84484; 71046; 84702; 85025; 85379; 93005; 99285; A4216

== ENCOUNTER → 2021-09-20 | Outpatient (CLI) | payer MEDICAID, SELFPAY ==
[2021-09-20 13:08] LABS: Color, Urine Yellow (Yellow); Glucose, Dipstick Normal (Normal); Ketone-Dipstick Negative (Negative); Leukocyte Esterase-Dipstick Negative /ul (Negative); Nitrite-Dipstick Negative (Negative); Occult Blood-Urine Negative /ul (Negative); Protein-Dipstick Negative (Negative); Urine Bilirubin Dipstick Negative (Negative); Urine Clarity Sl. Cloudy (Clear); Urine Urobilinogen Normal (Normal)
[2021-09-20 13:23] LABS: Hemoglobin A1c 5.3 % (3.8-5.6)
[2021-09-20 13:45] LABS: Anion Gap 6 (5-15); BUN 10 mg/dL (7-18); BUN/Creat Ratio 13.7 RATIO (10-20); Calcium,Total 9.5 mg/dL (8.5-10.1); Chloride 106 mmol/L (98-107); Creatinine, Serum 0.73 mg/dL (0.55-1.02); EST Glomerular Filtration Rate 107 mL/min (>60); Est Glom Filt Rate - Afr Amer 129 mL/min (>60); Ferritin 23 ng/mL (8-252); Glucose 105 mg/dL (74-106); Iron 39 ug/dL (50-170); Iron Binding Capacity,Total 322 ug/dL (250-450); Magnesium 2.2 mg/dL (1.6-2.6); Potassium 4.4 mmol/L (3.5-5.1); Sodium Level 138 mmol/L (136-145); Thyroid Stim Hormone (TSH) 2.72 uIU/mL (0.358-3.74)
[2021-09-20 15:01] LABS: Absolute Lymphocyte Count 1.62 X10^3/uL (0.83-4.51); Absolute Neutrophil Count 3.3 X10^3/uL (2.0-7.7); Basophil# 0.02 X10^3/uL; Basophil% 0.4 % (0-1); Eosinophil# 0.06 X10^3/uL; Eosinophils% 1.1 % (0-5); Hematocrit 41.1 % (37-47); Hemoglobin 13.5 g/dL (12.0-15.0); Lymphocyte # 1.62 X10^3/ul (0.83-4.51); Lymphocyte % 30.2 % (19-41); Mean Corp Hgb Conc 32.8 g/dL (32-36); Mean Corpuscular Hgb 25.6 pg (27.0-32.0); Mean Corpuscular Volume 77.8 fL (81-99); Mean Platelet Vol. 8.7 fl (6.2-12.0); Monocyte# 0.38 X10^3/uL; Monocyte% 7.1 % (0-10); NRBC Flagged by Analyzer 0 % (0-5); Neutrophil # 3.27 X10^3/uL (2.7-7.7); Platelet Count 411 K/mm3 (150-450); RBC Distribution Width CV 14.5 % (11.6-14.6); RBC Distribution Width SD 38.5 fl (35.1-43.9); Red Blood Count 5.28 M/mm3 (4.2-5.4); White Blood Count 5.4 K/mm3 (4.4-11.0)
== END | disposition home or self-care (01) ==
LOC: LAB 12:25
DX: R00.2 Palpitations (principal); E87.6 Hypokalemia; R71.8 Other abnormality of red blood cells; R73.09 Other abnormal glucose; M54.9 Dorsalgia, unspecified
CPT/HCPCS: 36415; 80048; 81002; 82728; 83036; 83540; 83550; 83735; 84443; 85025

== ENCOUNTER 2021-10-06 09:25 | Emergency (ER) | payer MEDICAID, SELFPAY ==
[2021-10-06 09:26] VITALS: BP 143/85; PULSE 89; RESP 12; TEMP 36.5; O2SAT 100; BMI 29.7
--- NOTE | 2021-10-06 09:36 | EDS_ITS ---
HPI History of Present Illness Chief Complaint: Numb/Ting Detail of Chief Complaint: Paresthesia hands, feet and perioral Informant: patient Onset/Context/Timing Onset: Hours Context: Sudden Onset Timing: Continuous Quality: Tingling Location: Per chief complaint Current Severity: Mild Maximum Severity: Moderate Worsened by: Nothing specific Relieved by: Nothing specific Associated Symptoms Associated Symptoms: Nausea and vomiting started early this week. Please read narrative for com Narrative Narrative: Patient is a 21-year-old woman with history of POTS syndrome. She is on no beta-clau. She presents because she developed numbness and tingling in her feet and hands that started at work. She also reported nausea. 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 She was instructed to go to the [facility] [place] She initially was reluctant. Apparently her symptoms did not get better. She presents now for evaluation. She does have a history of depression and anxiety. She does not believe she is any more anxious than normal or anything that may have caused her to be anxious. She denies any increased symptoms of with regards to depression. She reports nausea and vomiting with diarrhea that started earlier this week. She states she presented to the emergency department on Saturday however left because of the volume and weight. She has vomited 5-10 times per day. She has had 3-5 loose watery stools. She has not noticed blood in her emesis or coffee ground appearing emesis. She denies black or maroon-colored stool. She has not been on antibiotics recently. She has Depo injection for control. She states her menses ended 3 days ago. She has no signs or symptoms of . Patient denies headache, visual, ocular auditory symptoms. She states earlier in the week she had spots in the back of her throat. She does endorse dry mouth and thirst. She denies orthostatic symptoms, however. Prior similar symptoms: No Recent Illness/Hospitalization: No PFSH ON LICENSE OF [facility] Medical History Anxiety Asthma Depression Endometriosis Migraine Pelvic pain Pott disease Thyroid disease Home Medications albuterol sulfate 90 mcg/actuation aerosol inhaler 2 puff inhalation PRN PRN Wheezing 06/14/21 [History Last Taken Unknown] epinephrine 0.3 mg/0.3 mL injection, auto-injector 1 mg IM PRN PRN Allergic Reaction 06/14/21 [History Last Taken Unknown] prazosin 1 mg capsule 1 mg PO BID 06/14/21 [History Last Taken Unknown] aripiprazole 2 mg tablet 2 mg PO QHS 07/31/21 [History Last Taken Unknown] ferrous sulfate 325 mg (65 mg iron) tablet,delayed release 325 mg PO DAILY 07/31/21 [History Last Taken Unknown] dicyclomine 10 mg capsule 20 mg PO TIDAC #20 CAPSULES 10/06/21 [Rx Last Taken Unknown] fluoxetine 10 mg capsule 3 cap PO DAILY 10/06/21 [History Last Taken Unknown] gabapentin 100 mg capsule 1 cap PO TID 10/06/21 [History Last Taken Unknown] ondansetron 4 mg disintegrating tablet 4 mg PO Q8H PRN PRN Nausea #10 tabs 10/06/21 [Rx Last Taken Unknown] topiramate 25 mg tablet 1 tab PO DAILY 10/06/21 [History Last Taken Unknown] Allergy/AdvReac Type Severity Reaction Status Date / Time sertraline [From Zoloft] Allergy Anaphylaxis Verified 10/06/21 09:30 silicone Allergy Rash Verified 10/06/21 09:30 lactose AdvReac Upset Verified 10/06/21 09:30 Stomach NASAL SPRAY Allergy Hives Uncoded 10/06/21 09:30 Surgical History no surgical history no surgical history Social History (Updated 10/06/21 @ 09:[address] Fabrice Em MD) household members: none Smoking Status: Current every day smoker tobacco type: e-cigarettes substance use type: does not use ROS ROS ED Constitutional Constitutional ED: Denies chills, fever(s), subjective, sweats or weight loss Eyes Eyes: Denies blurry vision, change in vision or diplopia ENT ENT ED: Reports sore throat and other Details: Perioral numbness. ; Denies ear pain or rhinorrhea Cardiovascular Cardiovascular: Denies chest pain or palpitations Respiratory/Chest Respiratory/Chest: Denies cough, dyspnea or dyspnea on exertion Gastrointestinal Gastrointestinal: Reports diarrhea, nausea and vomiting; Denies abdominal pain, constipation or melena Genitourinary Genitourinary ED: Reports LMP (females 10-50) Details: Comment: (Documented narrative of HPI.); Denies dysuria, hematuria or urinary frequency Musculoskeletal Musculoskeletal: Denies arthralgias, back pain or myalgias Integumentary Denies abscess or rash Neurologic Neurologic: Reports paresthesias and weakness; Denies headache(s) Psychiatric Psychiatric: Reports anxiety and depression; Denies suicidal ideation EXAM Physical Exam Narrative Exam Narrative: Patient has a depressed affect. She appears in no apparent distress. Const Vital Signs: 10/06/21 09:26 10/06/21 10:09 Temperature 97.7 F L Temperature Source Temporal Pulse Rate 89 85 Respiratory Rate 12 23 H Blood Pressure 143/85 H 120/78 Blood Pressure Mean 104 92 Pulse Ox 100 100 Oxygen Delivery Method Room Air Positive well nourished and well developed; Negative for obese or cachectic General Appearance ED: well developed and NAD; Negative for cachectic, cyanotic, diaphoretic or pallor Nutritional Appearance: Negative for cachectic or obese HEENT Reports dry mucous membranes HEENT Narrative: Head is atraumatic normocephalic. Ears normal. Nares patent. Uvula midline. There is no erythema or exudate. There is no angioedema. She Chvostek sign positive bilaterally. Patient had Trousseau sign as well. Mouth ED: Yes dry mucous membranes Mouth: dry mucous membranes Eyes PERRL and EOMs intact bilaterally Eyes Narrative: There is no scleral icterus. Conjunctive is pink. Neck no lymphadenopathy Neck Narrative: Trachea midline. No in-store extra stridor. Resp normal respiratory effort and clear to auscultation bilaterally Effort and Inspection: Negative for pain with movement Cardio regular rate, regular rhythm, S1 normal heart sound, S2 normal heart sound and no murmurs GI normal to inspection, nondistended, normoactive bowel sounds, non-tender and non-distended; Negative for hepatosplenomegaly Auscultation: hypoactive bowel sounds Palpation: soft Back/Spine General Back: Negative for CVA tenderness Thoracic Spine / Upper Back: Negative for thoracic spinal tenderness or paraspinal muscle tenderness Extremity normal to inspection General Extremety ED: Negative for edema or tenderness General Extremity: Negative for edema Neuro oriented x3, CN's II-XII intact bilaterally and no sensory deficits noted Sensorium / Orientation: alert Motor Exam: strength 5/5 throughout Psych Psych Narrative: Affect and mood are depressed. Skin no rashes or lesions noted General Skin Exam: elasticity normal; Negative for jaundice or pallor Lesions: lesion noted Rashes: rashes noted MDM MDM MDM Narrative Medical decision making narrative: Clinically patient is dehydrated. Will obtain basic metabolic panel to assess for hypokalemia and renal function. 1 L of normal saline was ordered. Suspect symptoms today are related to hyperventilation syndrome. Lab Data Attestation: I reviewed the patient's lab results. Lab results narrative: Patient does have hypokalemia due to diarrhea. There is a nonanion gap acidosis noted as well. Labs: Laboratory Results - last 24 hr 10/06/21 09:40 Sodium 138 Potassium 3.1 L Chloride 110 H Carbon Dioxide 20.0 L Anion Gap 8 BUN 11 Creatinine 0.85 Estim Creat Clear Calc 91.17 Est GFR (MDRD) Af Amer 110 Est GFR (MDRD) Non-Af 91 BUN/Creatinine Ratio 13.0 Glucose 89 Calcium 9.2 Treatment and Re-Evaluation Narrative: Patient was reassessed at 1038. Patient states she is markedly improved. She was prescribed dicyclomine for her cramping pain and Zofran for nausea. She was discharged home in stable improved condition Discharge Plan Triage Chief Complaint: Numb/Ting ED Provider: Fabrice Em Dx/Rx/DC Orders Clinical Impression: Acute hyperventilation syndrome, Abdominal pain, vomiting, and diarrhea, Acute dehydration, Acute hypokalemia, Normal anion gap metabolic acidosis Instructions: ED Hyperventilation Syndrome, ED Hypokalemia, ED Vomiting and Diarrhea ... Prescriptions: New ondansetron [ondansetron] 4 mg tablet,disintegrating 4 mg PO Q8H PRN PRN (Reason: Nausea) Qty: 10 0RF dicyclomine 10 mg capsule 20 mg PO TIDAC Qty: 20 0RF No Action prazosin 1 mg capsule 1 mg PO BID Label Comments: take 1 capsule by mouth at bedtime epinephrine 0.3 mg/0.3 mL auto-injector 1 mg IM PRN PRN (Reason: Allergic Reaction) Label Comments: INJECT INTO THE MUSCLE NEEDED FOR ANAPHYLAXIS REACTION albuterol sulfate 90 mcg/actuation HFA aerosol inhaler 2 puff INHALATION PRN PRN (Reason: Wheezing) Label Comments: inhale 2 puffs by mouth and INTO THE LUNGS every 4 hours if neede... (REFER TO PRESCRIPTION NOTES). ferrous sulfate 325 mg (65 mg iron) tablet,delayed release (DR/EC) 325 mg PO DAILY aripiprazole 2 mg tablet 2 mg PO QHS topiramate 25 mg tablet 1 tab PO DAILY Label Comments: take 1 tablet by mouth once daily at bedtime for 1 week then INCR... (REFER TO PRESCRIPTION NOTES). fluoxetine 10 mg capsule 3 cap PO DAILY gabapentin 100 mg capsule 1 cap PO TID Label Comments: take 1 capsule by mouth three times a day if needed for headache for up to 90 DAYS Primary Care Provider: Medical Sury Queen Referrals: [facility] Sury Queen [Primary Care Provider] - 3-5 Days if not improving Disposition Disposition: Home, Self Care
[2021-10-06] MEDS: 0.9% Normal Saline 1,000 ML 1000 ML IV (09:42)
[2021-10-06 10:00] LABS: Anion Gap 8 (5-15); BUN 11 mg/dL (7-18); Calcium,Total 9.2 mg/dL (8.5-10.1); Chloride 110 mmol/L (98-107); Creatinine, Serum 0.85 mg/dL (0.55-1.02); EST Glomerular Filtration Rate 91 mL/min (>60); Est Glom Filt Rate - Afr Amer 110 mL/min (>60); Estimated Creatinine Clearance 91.17 ml/min; Glucose 89 mg/dL (74-106); Potassium 3.1 mmol/L (3.5-5.1); Sodium Level 138 mmol/L (136-145)
[2021-10-06 10:09] VITALS: BP 120/78; PULSE 85; RESP 23; O2SAT 100
[2021-10-06] MEDS: Ondansetron ODT 4 MG Tablet PO (10:45)
[2021-10-06] MEDS: Dicyclomine 10 MG Capsule 20 MG PO (10:45)
[2021-10-06 10:47] VITALS: BP 128/90; PULSE 91; RESP 16; O2SAT 100
== END 2021-10-06 11:15 | disposition home or self-care (01) ==
PROVIDERS: Emergency Provider Emergency Medicine; Visit Provider Emergency Medicine
DX: R06.4 Hyperventilation (principal); R11.10 Vomiting, unspecified; E87.2 Acidosis; R19.7 Diarrhea, unspecified; F41.9 Anxiety disorder, unspecified; F17.210 Nicotine dependence, cigarettes, uncomplicated; E87.6 Hypokalemia; E86.0 Dehydration; R10.9 Unspecified abdominal pain; F32.A Depression, unspecified
CPT/HCPCS: 80048; 96360; 99285; J7030

== ENCOUNTER → 2021-10-09 | Outpatient (CLI) | payer MEDICAID, SELFPAY ==
[2021-10-09 12:42] LABS: Absolute Lymphocyte Count 1.96 X10^3/uL (0.83-4.51); Absolute Neutrophil Count 3.5 X10^3/uL (2.0-7.7); Basophil# 0.02 X10^3/uL; Basophil% 0.3 % (0-1); Eosinophil# 0.03 X10^3/uL; Eosinophils% 0.5 % (0-5); Hematocrit 41.2 % (37-47); Hemoglobin 13.6 g/dL (12.0-15.0); Lymphocyte # 1.96 X10^3/ul (0.83-4.51); Lymphocyte % 32.6 % (19-41); Mean Corpuscular Hgb 24.6 pg (27.0-32.0); Mean Corpuscular Volume 74.6 fL (81-99); Monocyte# 0.47 X10^3/uL; Monocyte% 7.8 % (0-10); NRBC Flagged by Analyzer 0 % (0-5); Neutrophil # 3.52 X10^3/uL (2.7-7.7); Neutrophil % 58.6 % (47-70); Platelet Count 427 K/mm3 (150-450); RBC Distribution Width CV 14.5 % (11.6-14.6); RBC Distribution Width SD 38.8 fl (35.1-43.9); Red Blood Count 5.52 M/mm3 (4.2-5.4)
[2021-10-09 13:20] LABS: ALB/GLOB Ratio 0.9 RATIO (0.9-2.4); AST(SGOT) 12 U/L (15-37); Alanine Aminotransfer ALT/SGPT 18 U/L (13-56); Albumin, Serum 3.7 g/dL (3.2-5.0); Alkaline Phosphatase 112 U/L (45-117); Anion Gap 11 (5-15); BUN 9 mg/dL (7-18); BUN/Creat Ratio 11.6 RATIO (10-20); Calcium,Total 9.3 mg/dL (8.5-10.1); Chloride 109 mmol/L (98-107); Creatinine, Serum 0.78 mg/dL (0.55-1.02); EST Glomerular Filtration Rate 100 mL/min (>60); Est Glom Filt Rate - Afr Amer 121 mL/min (>60); Globulin 4.2 g/dL (2.2-4.2); Glucose 102 mg/dL (74-106); Potassium 3.5 mmol/L (3.5-5.1); Protein, Total 7.9 g/dL (6.4-8.2); Sodium Level 139 mmol/L (136-145)
== END | disposition home or self-care (01) ==
LOC: LAB 11:40
PROVIDERS: Visit Provider Nurse Practitioner Adult Health
DX: R19.7 Diarrhea, unspecified (principal)
CPT/HCPCS: 36415; 80053; 85025

== ENCOUNTER → 2021-10-19 | Outpatient (CLI) | payer MEDICAID, SELFPAY ==
--- NOTE | 2021-10-19 10:35 | RAD_ITS ---
STUDY: X-RAY - ABDOMEN/PELVIS REASON FOR EXAM: Female, 21 years old. NAUSEA WITH VOMITING TECHNIQUE: AP supine and upright views of the abdomen and pelvis. COMPARISON: None. FINDINGS: Normal visualized lung bases. There is an abundance of fecal material throughout the colon. There is no demonstrated free abdominal air. The visualized liver, spleen and kidneys are grossly normal in size and morphology. Normal soft tissue structures. Normal visualized osseous structures. RAD/Abd Inc Decub and/or Erect IMPRESSION: Large amount of fecal material is seen in the colon. Electronically Signed: Eugenio Weathers MD at 12:47 EDT ,
[2021-10-19 11:52] LABS: Erythrocyte Sedimentation Rate 27 mm/hr (0-30)
[2021-10-19 11:54] LABS: Absolute Lymphocyte Count 2.03 X10^3/uL (0.83-4.51); Absolute Neutrophil Count 4.2 X10^3/uL (2.0-7.7); Basophil# 0.02 X10^3/uL; Basophil% 0.3 % (0-1); Eosinophil# 0.06 X10^3/uL; Eosinophils% 0.9 % (0-5); Hematocrit 41.1 % (37-47); Hemoglobin 13.4 g/dL (12.0-15.0); Lymphocyte # 2.03 X10^3/ul (0.83-4.51); Lymphocyte % 30.4 % (19-41); Mean Corp Hgb Conc 32.6 g/dL (32-36); Mean Corpuscular Hgb 24.9 pg (27.0-32.0); Mean Corpuscular Volume 76.4 fL (81-99); Mean Platelet Vol. 9.3 fl (6.2-12.0); Monocyte# 0.39 X10^3/uL; Monocyte% 5.8 % (0-10); NRBC Flagged by Analyzer 0 % (0-5); Neutrophil # 4.15 X10^3/uL (2.7-7.7); Neutrophil % 62.3 % (47-70); Platelet Count 387 K/mm3 (150-450); RBC Distribution Width CV 14.9 % (11.6-14.6); RBC Distribution Width SD 41.2 fl (35.1-43.9); Red Blood Count 5.38 M/mm3 (4.2-5.4); White Blood Count 6.7 K/mm3 (4.4-11.0)
[2021-10-19 12:30] LABS: AST(SGOT) 11 U/L (15-37); Alanine Aminotransfer ALT/SGPT 18 U/L (13-56); Albumin, Serum 3.7 g/dL (3.2-5.0); Alkaline Phosphatase 103 U/L (45-117); Anion Gap 7 (5-15); BUN 7 mg/dL (7-18); BUN/Creat Ratio 9.2 RATIO (10-20); Calcium,Total 9.1 mg/dL (8.5-10.1); Chloride 115 mmol/L (98-107); Creatinine, Serum 0.76 mg/dL (0.55-1.02); EST Glomerular Filtration Rate 103 mL/min (>60); Est Glom Filt Rate - Afr Amer 124 mL/min (>60); Globulin 3.8 g/dL (2.2-4.2); Glucose 89 mg/dL (74-106); Potassium 3.8 mmol/L (3.5-5.1); Protein, Total 7.5 g/dL (6.4-8.2); Sodium Level 141 mmol/L (136-145)
== END | disposition home or self-care (01) ==
PROVIDERS: Visit Provider Nurse Practitioner Adult Health
DX: R11.2 Nausea with vomiting, unspecified (principal); R10.9 Unspecified abdominal pain
CPT/HCPCS: 36415; 74019; 80053; 85025; 85652

== ENCOUNTER 2021-10-20 17:00 | Emergency (ER) | payer MEDICAID, SELFPAY ==
[2021-10-20 17:00] VITALS: BP 143/84; PULSE 101; RESP 16; TEMP 37.1; O2SAT 97; BMI 27.6
--- NOTE | 2021-10-20 17:57 | ED.RN ---
PT C/O LEFT SIDED ARM AND FACE MUSCLE SPASMS TO RT YOON. NIH PERFORMED- 0 AT THIS TIME. PT VISUALIZED MOVING ALL EXTREMITIES BY THIS RN AND PT LIASON.
[2021-10-20 18:20] LABS: Absolute Neutrophil Count 3.3 X10^3/uL (2.0-7.7); Basophil# 0.02 X10^3/uL; Basophil% 0.3 % (0-1); Eosinophil# 0.02 X10^3/uL; Eosinophils% 0.3 % (0-5); Hematocrit 45.1 % (37-47); Hemoglobin 14.3 g/dL (12.0-15.0); Mean Corp Hgb Conc 31.7 g/dL (32-36); Mean Corpuscular Hgb 24.6 pg (27.0-32.0); Mean Corpuscular Volume 77.5 fL (81-99); Mean Platelet Vol. 9.4 fl (6.2-12.0); Monocyte# 0.58 X10^3/uL; Monocyte% 9.7 % (0-10); NRBC Flagged by Analyzer 0 % (0-5); Neutrophil # 3.27 X10^3/uL (2.7-7.7); Neutrophil % 54.5 % (47-70); Platelet Count 410 K/mm3 (150-450); RBC Distribution Width CV 14.7 % (11.6-14.6); RBC Distribution Width SD 40.8 fl (35.1-43.9); Red Blood Count 5.82 M/mm3 (4.2-5.4)
[2021-10-20 18:33] LABS: Anion Gap 11 (5-15); BUN 6 mg/dL (7-18); BUN/Creat Ratio 6.2 RATIO (10-20); Calcium,Total 9.6 mg/dL (8.5-10.1); Chloride 108 mmol/L (98-107); Creatinine, Serum 0.96 mg/dL (0.55-1.02); EST Glomerular Filtration Rate 78 mL/min (>60); Est Glom Filt Rate - Afr Amer 94 mL/min (>60); Estimated Creatinine Clearance 80.72 ml/min; Glucose 83 mg/dL (74-106); Sodium Level 139 mmol/L (136-145)
--- NOTE | 2021-10-20 18:40 | EKG12_ITS ---
Test Reason : hypoglycemia Blood Pressure : / mmHG Vent. Rate : 105 BPM Atrial Rate : 105 BPM P-R Int : 140 ms QRS Dur : 070 ms QT Int : 422 ms P-R-T Axes : 063 047 007 degrees QTc Int : 557 ms Sinus tachycardia Nonspecific T wave abnormality Prolonged QT Abnormal ECG Confirmed by SALLY COOL, HUBER ([id number]), supervising editor trailer BRITTA SHI ([id number]) on 10/24/2021 8:57:07 AM Referred By: Alexei Mejia Confirmed By:HUBER ZAVALA MD
--- NOTE | 2021-10-20 18:41 | EX.ED.DYSGE1 ---
HPI <MOY Fenotn - Last Filed: 10/20/21 18:59> History of Present Illness Chief Complaint: Weakness Narrative Narrative: 21-year-old female with history of anxiety, PTSD, chronic pelvic pain presents to the emergency department with 3 weeks of generalized nausea, vomiting, 2 days of worsening weakness. Patient did see her PCP, she did receive laboratory values as well as a x-ray of her abdomen. The x-ray shows an abundance of fecal residue in the colon, consistent with constipation. Patient states she has had intermittent diarrhea as well for 3 weeks. Patient currently does not use any drugs, patient states that for the last 24 hours she has felt dizzy, dehydrated and is here for evaluation. [facility] <MOY Fenton - Last Filed: 10/20/21 18:59> [facility] Medical History Anxiety Asthma Depression Endometriosis Migraine Pelvic pain Pott disease Thyroid disease Home Medications albuterol sulfate 90 mcg/actuation aerosol inhaler 2 puff inhalation PRN PRN Wheezing 06/14/21 [History Last Taken Unknown] epinephrine 0.3 mg/0.3 mL injection, auto-injector 1 mg IM PRN PRN Allergic Reaction 06/14/21 [History Last Taken Unknown] prazosin 1 mg capsule 1 mg PO BID 06/14/21 [History Last Taken Unknown] aripiprazole 2 mg tablet 2 mg PO QHS 07/31/21 [History Last Taken Unknown] ferrous sulfate 325 mg (65 mg iron) tablet,delayed release 325 mg PO DAILY 07/31/21 [History Last Taken Unknown] dicyclomine 10 mg capsule 20 mg PO TIDAC #20 CAPSULES 10/06/21 [Rx Last Taken Unknown] fluoxetine 10 mg capsule 3 cap PO DAILY 10/06/21 [History Last Taken Unknown] gabapentin 100 mg capsule 1 cap PO TID 10/06/21 [History Last Taken Unknown] ondansetron 4 mg disintegrating tablet 4 mg PO Q8H PRN PRN Nausea #10 tabs 10/06/21 [Rx Last Taken Unknown] topiramate 25 mg tablet 1 tab PO DAILY 10/06/21 [History Last Taken Unknown] metoclopramide HCl 10 mg tablet 10 mg PO 4X/DAY PRN Headache #20 tabs 10/20/21 [Rx Last Taken Unknown] Allergy/AdvReac Type Severity Reaction Status Date / Time sertraline [From Zoloft] Allergy Anaphylaxis Verified 10/20/21 17:05 silicone Allergy Rash Verified 10/20/21 17:05 lactose AdvReac Upset Verified 10/20/21 17:05 Stomach NASAL SPRAY Allergy Hives Uncoded 10/20/21 17:05 Social History (Updated 10/06/21 @ 09:[address] Fabrice Em MD) household members: none Smoking Status: Current every day smoker tobacco type: e-cigarettes substance use type: does not use ROS <MOY Fenton - Last Filed: 10/20/21 18:59> ROS ED ROS Narrative Constitutional: Negative for fever, chills, weight loss. Positive for weakness Eyes: Negative for vision loss, vision change, double vision ENT: Negative for any sore throat, ear pain, congestion Cardiovascular: Negative for any chest pain, tightness, palpitations Respiratory: Negative for any cough, sputum production, hemoptysis, dyspnea, dyspnea on exertion, orthopnea Gastrointestinal: Negative for any abdominal pain, constipation, blood in stool, blood in vomit. Positive for abdominal, nausea and vomiting, diarrhea : Negative for any urinary frequency, dysuria, retention, blood in urine Muscle skeletal: Negative for any muscle joint pain, stiffness, myalgias, arthralgias, neck pain, back pain Neurological: Negative for any headache, syncope, numbness or tingling, dizziness Skin: Negative for any rashes, lumps, itching, abrasions, lacerations Psychiatric: Negative for any depression, anxiety, stress, suicidal ideation, homicidal ideation Hematologic: Negative for any easy bruising, excessive bruising, easy bleeding Allergies: Negative for any eczema, hives, rash EXAM <MOY Fenton - Last Filed: 10/20/21 18:59> Physical Exam Narrative Exam Narrative: Vital signs reviewed. HEET: Head normocephalic atraumatic, TMs clear bilaterally. Posterior pharynx is clear, dry mucous membranes. Nares clear bilaterally. Neck: Supple with no lymphadenopathy or tenderness. No signs of meningismus, negative jolt sign. Cardiac: Regular rate and rhythm no murmurs gallops or rubs, equal peripheral pulses bilaterally. Respiratory: Lungs clear to auscultation bilaterally. No chest tenderness. Abdomen: Soft, nontender, nondistended. No abdominal bruit or pulsatile masses. No hepatosplenomegaly Extremities: No peripheral edema, no signs of gross trauma or deformity. Active full range of motion of all extremities. Neuro: Cranial nerves II through XII intact, no focal neurological deficits. Skin: Clean dry and intact with no rash, purpura, petechiae, vesicles or pustules. Backs/flank: No CVA tenderness, no midline spinal tenderness, no deformity. Psych: Normal mood and affect. No SI, HI or acute psychosis. Const Vital Signs: 10/20/21 17:00 10/20/21 18:52 Temperature 98.8 F Temperature Source Temporal Pulse Rate 101 H 98 Respiratory Rate 16 Blood Pressure 143/84 H Blood Pressure Mean 103 Pulse Ox 97 99 Oxygen Delivery Method Room Air Room Air <Dr. Alexei Chakraborty DO - Last Filed: 10/20/21 20:07> Physical Exam Const Vital Signs: 10/20/21 17:00 10/20/21 18:52 Temperature 98.8 F Temperature Source Temporal Pulse Rate 101 H 98 Respiratory Rate 16 Blood Pressure 143/84 H Blood Pressure Mean 103 Pulse Ox 97 99 Oxygen Delivery Method Room Air Room Air MDM <MOY Fenton - Last Filed: 10/20/21 18:59> [facility] Lab Data Labs: Laboratory Results - last 24 hr 10/20/21 10/20/21 10/20/21 16:50 16:50 19:01 WBC 6.0 RBC 5.82 H Hgb 14.3 Hct 45.1 MCV 77.5 L MCH 24.6 L MCHC 31.7 L RDW Std Deviation 40.8 RDW Coeff of Anoop 14.7 H Plt Count 410 MPV 9.4 Immature Gran % (Auto) 0.200 Neut % (Auto) 54.5 Lymph % (Auto) 35.0 Haakon % (Auto) 9.7 Eos % (Auto) 0.3 Baso % (Auto) 0.3 Absolute Neuts (auto) 3.3 Absolute Lymphs (auto) 2.10 Nucleated RBC % 0 Sodium 139 Potassium 3.0 L Chloride 108 H Carbon Dioxide 20.0 L Anion Gap 11 BUN 6 L Creatinine 0.96 Estim Creat Clear Calc 80.72 Est GFR (MDRD) Af Amer 94 Est GFR (MDRD) Non-Af 78 BUN/Creatinine Ratio 6.2 L Glucose 83 Calcium 9.6 Urine Color Yellow Urine Clarity Clear Urine pH 7.0 Ur Specific Bradford 1.005 Urine Protein Negative Urine Glucose (UA) Normal Urine Ketones 5 H Urine Occult Blood Negative Urine Nitrite Negative Urine Bilirubin Negative Urine Urobilinogen Normal Ur Leukocyte Esterase 100 H Urine RBC 0 SEEN Urine WBC 0-5 SEEN Ur Squamous Epith Cells 0 SEEN Urine Bacteria 0 SEEN Urine Mucus 0 SEEN Urine Test Negative EKG Sinus tachycardia: Attestation: I personally reviewed and interpreted this EKG as follows: Interpretation: Sinus Rhythm Comments: Sinus tach, rate of 105 bpm WA 140 ms, QRS duration 70 ms, there is no acute ST elevation or acute infarct noted. Treatment and Re-Evaluation Narrative: Patient appears well, patient appears nontoxic, vital signs are stable. Patient presents to the emergency department for 3 weeks of generalized nausea, vomiting. Patient did receive x-ray of the abdomen by her PCP yesterday, this did show constipation. Patient received repeat laboratory studies, patient CBC was unremarkable, patient's chemistries did show low potassium at 3.0, this was replaced orally. Patient will be given IV fluid, IV Zofran. Urinalysis, urine preg will be completed. <Dr. Alexei Chakraborty, DO - Last Filed: 10/20/21 20:07> [facility] Narrative Medical decision making narrative: I have personally performed a face to face assessment of the patient and have reviewed the ALANIS Note. I performed a substantive portion of the visit including all aspects of the following. My lawson findings include: History: Patient is a 21-year-old female who presents with weakness, nausea, and vomiting that has been getting worse over the past couple days. Patient denies any fevers or chills. Patient denies any hematemesis or coffee-ground emesis. Patient states she feels weak all over. Patient states she feels like she cannot walk due to the weakness. Patient denies any chest pain. Exam: Vital signs are stable. Patient is afebrile. Patient is in no acute distress. Oral mucosa is pink and moist. Neck is supple. Trachea is midline. There is no JVD. Heart was regular rate and rhythm. Lungs are clear and equal bilaterally. Abdomen is soft. Bowel sounds are normal. There is mild diffuse tenderness. There is no rebound or guarding noted. Cranial nerves II through XII are intact. There are no focal motor or sensory deficits. Medical Decision Making: Patient was given IV fluids. Patient was given Zofran. EKG was obtained. On my interpretation, it showed a normal sinus rhythm with a rate of 105. WA interval, QRS interval, and QTc intervals were all normal. [place] was normal. There are no acute ST or T wave changes. CBC was within normal limits. Basic metabolic profile showed a hypokalemia of 3.0. Urinalysis does not show any evidence of urinary tract infection. Urine hCG was negative. Patient was still having some persistent nausea. Patient was given a dose of Reglan. The patient was advised of her findings. Patient was given a prescription for Reglan to go home with. Patient was instructed to follow-up with her primary care physician in 3 to 5 days for further evaluation. Patient understood and was agreeable with the plan. All questions were answered. Lab Data Attestation: I reviewed the patient's lab results. Labs: Laboratory Results - last 24 hr 10/20/21 10/20/21 10/20/21 16:50 16:50 19:01 WBC 6.0 RBC 5.82 H Hgb 14.3 Hct 45.1 MCV 77.5 L MCH 24.6 L MCHC 31.7 L RDW Std Deviation 40.8 RDW Coeff of Anoop 14.7 H Plt Count 410 MPV 9.4 Immature Gran % (Auto) 0.200 Neut % (Auto) 54.5 Lymph % (Auto) 35.0 Haakon % (Auto) 9.7 Eos % (Auto) 0.3 Baso % (Auto) 0.3 Absolute Neuts (auto) 3.3 Absolute Lymphs (auto) 2.10 Nucleated RBC % 0 Sodium 139 Potassium 3.0 L Chloride 108 H Carbon Dioxide 20.0 L Anion Gap 11 BUN 6 L Creatinine 0.96 Estim Creat Clear Calc 80.72 Est GFR (MDRD) Af Amer 94 Est GFR (MDRD) Non-Af 78 BUN/Creatinine Ratio 6.2 L Glucose 83 Calcium 9.6 Urine Color Yellow Urine Clarity Clear Urine pH 7.0 Ur Specific Bradford 1.005 Urine Protein Negative Urine Glucose (UA) Normal Urine Ketones 5 H Urine Occult Blood Negative Urine Nitrite Negative Urine Bilirubin Negative Urine Urobilinogen Normal Ur Leukocyte Esterase 100 H Urine RBC 0 SEEN Urine WBC 0-5 SEEN Ur Squamous Epith Cells 0 SEEN Urine Bacteria 0 SEEN Urine Mucus 0 SEEN Urine Test Negative Discharge Plan Triage Chief Complaint: Weakness Other Complaint: Nausea/Vomiting ED Midlevel Provider: Sumanth Potts ED Provider: Alexei Chakraborty Dx/Rx/DC Orders Clinical Impression: Nausea and vomiting, Generalized weakness, Hypokalemia Instructions: ED Vomiting (Adult), ED Weakness (Uncertain Cause) Prescriptions: New metoclopramide HCl [metoclopramide HCl] 10 MG tablet 10 mg PO 4X/DAY PRN (Reason: Headache) Qty: 20 0RF No Action prazosin 1 mg capsule 1 mg PO BID Label Comments: take 1 capsule by mouth at bedtime epinephrine 0.3 mg/0.3 mL auto-injector 1 mg IM PRN PRN (Reason: Allergic Reaction) Label Comments: INJECT INTO THE MUSCLE NEEDED FOR ANAPHYLAXIS REACTION albuterol sulfate 90 mcg/actuation HFA aerosol inhaler 2 puff INHALATION PRN PRN (Reason: Wheezing) Label Comments: inhale 2 puffs by mouth and INTO THE LUNGS every 4 hours if neede... (REFER TO PRESCRIPTION NOTES). ferrous sulfate 325 mg (65 mg iron) tablet,delayed release (DR/EC) 325 mg PO DAILY aripiprazole 2 mg tablet 2 mg PO QHS topiramate 25 mg tablet 1 tab PO DAILY Label Comments: take 1 tablet by mouth once daily at bedtime for 1 week then INCR... (REFER TO PRESCRIPTION NOTES). fluoxetine 10 mg capsule 3 cap PO DAILY gabapentin 100 mg capsule 1 cap PO TID Label Comments: take 1 capsule by mouth three times a day if needed for headache for up to 90 DAYS ondansetron [ondansetron] 4 mg tablet,disintegrating 4 mg PO Q8H PRN PRN (Reason: Nausea) Qty: 10 0RF dicyclomine 10 mg capsule 20 mg PO TIDAC Qty: 20 0RF Primary Care Provider: Sury Echavarria Referrals: [facility] Sury Queen [Primary Care Provider] - 3-5 Days Disposition Disposition: Home, Self Care
[2021-10-20] MEDS: Potassium Chloride Oral Tablet 20 MEQ 40 MEQ PO (18:51)
[2021-10-20] MEDS: 0.9% Normal Saline 1,000 ML 1000 ML IV (18:51)
[2021-10-20 18:52] VITALS: PULSE 98; O2SAT 99
[2021-10-20] MEDS: Metoclopramide 10 MG/2 ML Vial 5 MG IV (19:16)
[2021-10-20 19:17] LABS: Bacteria 0 SEEN /hpf (None Seen); Color, Urine Yellow (Yellow); Glucose, Dipstick Normal (Normal); Ketone-Dipstick 5 mg/dl (Negative); Leukocyte Esterase-Dipstick 100 /ul (Negative); Mucous, Urine 0 SEEN /hpf (<or=2+); Nitrite-Dipstick Negative (Negative); Occult Blood-Urine Negative /ul (Negative); Protein-Dipstick Negative (Negative); Red Blood Cells-Urine 0 SEEN /hpf (0-5); Specific Gravity, Urine 1.005 (1.002-1.030); Squamous Epithelial Cells - UA 0 SEEN /hpf (5-10); Urine Bilirubin Dipstick Negative (Negative); Urine Clarity Clear (Clear); Urine Urobilinogen Normal (Normal)
[2021-10-20 19:23] LABS: White Blood Cells 0-5 SEEN /hpf (0-5)
[2021-10-20 19:24] LABS: Internal QC Validated? YES +Cl - CLEAR BKGD; Pregnancy, Urine Negative Negative
== END 2021-10-20 20:42 | disposition home or self-care (01) ==
PROVIDERS: Nurse Practitioner; Emergency Provider Emergency Medicine; Visit Provider Emergency Medicine
DX: R11.2 Nausea with vomiting, unspecified (principal); F41.9 Anxiety disorder, unspecified; E87.6 Hypokalemia; F17.210 Nicotine dependence, cigarettes, uncomplicated; R53.1 Weakness; J45.909 Unspecified asthma, uncomplicated; F32.A Depression, unspecified
CPT/HCPCS: J2405; 80048; 81001; 81025; 85025; 93005; 99285; J7030; A4216

== ENCOUNTER → 2021-10-25 | Outpatient (CLI) | payer MEDICAID, SELFPAY ==
[2021-10-25 15:23] LABS: Absolute Lymphocyte Count 1.43 X10^3/uL (0.83-4.51); Absolute Neutrophil Count 3.4 X10^3/uL (2.0-7.7); Basophil# 0.01 X10^3/uL; Basophil% 0.2 % (0-1); Eosinophil# 0.03 X10^3/uL; Eosinophils% 0.6 % (0-5); Hematocrit 39.8 % (37-47); Hemoglobin 12.8 g/dL (12.0-15.0); Lymphocyte # 1.43 X10^3/ul (0.83-4.51); Lymphocyte % 27.4 % (19-41); Mean Corp Hgb Conc 32.2 g/dL (32-36); Mean Corpuscular Hgb 24.7 pg (27.0-32.0); Mean Corpuscular Volume 76.7 fL (81-99); Mean Platelet Vol. 9.6 fl (6.2-12.0); Monocyte# 0.36 X10^3/uL; Monocyte% 6.9 % (0-10); NRBC Flagged by Analyzer 0 % (0-5); Neutrophil # 3.36 X10^3/uL (2.7-7.7); Neutrophil % 64.5 % (47-70); Platelet Count 430 K/mm3 (150-450); RBC Distribution Width CV 14.9 % (11.6-14.6); RBC Distribution Width SD 41.4 fl (35.1-43.9); Red Blood Count 5.19 M/mm3 (4.2-5.4); White Blood Count 5.2 K/mm3 (4.4-11.0)
[2021-10-25 15:58] LABS: AST(SGOT) 14 U/L (15-37); Alanine Aminotransfer ALT/SGPT 18 U/L (13-56); Albumin, Serum 3.7 g/dL (3.2-5.0); Alkaline Phosphatase 99 U/L (45-117); Anion Gap 6 (5-15); BUN 8 mg/dL (7-18); BUN/Creat Ratio 9.2 RATIO (10-20); Calcium,Total 9.1 mg/dL (8.5-10.1); Chloride 111 mmol/L (98-107); Creatinine, Serum 0.87 mg/dL (0.55-1.02); EST Glomerular Filtration Rate 88 mL/min (>60); Est Glom Filt Rate - Afr Amer 106 mL/min (>60); Globulin 3.8 g/dL (2.2-4.2); Glucose 106 mg/dL (74-106); Potassium 3.4 mmol/L (3.5-5.1); Protein, Total 7.5 g/dL (6.4-8.2); Sodium Level 140 mmol/L (136-145)
== END | disposition home or self-care (01) ==
LOC: LAB 13:25
PROVIDERS: Visit Provider Nurse Practitioner Adult Health
DX: R19.7 Diarrhea, unspecified (principal)
CPT/HCPCS: 36415; 80053; 85025

== ENCOUNTER → 2021-10-27 | Outpatient (CLI) | payer MEDICAID, SELFPAY | END | disposition home or self-care (01) | LOC: LAB 08:35 | PROVIDERS: Visit Provider Nurse Practitioner Adult Health | DX: R19.7 Diarrhea, unspecified (principal) | CPT/HCPCS: 87493; 87506 ==

== ENCOUNTER → 2021-10-30 | Outpatient (CLI) | payer MEDICAID, SELFPAY ==
[2021-10-30 12:06] LABS: Hematocrit 40.9 % (37-47); Hemoglobin 13.3 g/dL (12.0-15.0); Mean Corp Hgb Conc 32.5 g/dL (32-36); Mean Corpuscular Hgb 24.9 pg (27.0-32.0); Mean Corpuscular Volume 76.4 fL (81-99); Mean Platelet Vol. 9.5 fl (6.2-12.0); Platelet Count 420 K/mm3 (150-450); RBC Distribution Width CV 15.2 % (11.6-14.6); RBC Distribution Width SD 41.9 fl (35.1-43.9); Red Blood Count 5.35 M/mm3 (4.2-5.4); White Blood Count 5.8 K/mm3 (4.4-11.0)
[2021-10-30 12:41] LABS: ALB/GLOB Ratio 0.9 RATIO (0.9-2.4); AST(SGOT) 11 U/L (15-37); Alanine Aminotransfer ALT/SGPT 17 U/L (13-56); Albumin, Serum 3.7 g/dL (3.2-5.0); Alkaline Phosphatase 108 U/L (45-117); Anion Gap 7 (5-15); BUN 5 mg/dL (7-18); BUN/Creat Ratio 6.3 RATIO (10-20); Calcium,Total 9.2 mg/dL (8.5-10.1); Chloride 111 mmol/L (98-107); Creatinine, Serum 0.79 mg/dL (0.55-1.02); EST Glomerular Filtration Rate 98 mL/min (>60); Est Glom Filt Rate - Afr Amer 119 mL/min (>60); Globulin 4.1 g/dL (2.2-4.2); Glucose 87 mg/dL (74-106); Potassium 3.5 mmol/L (3.5-5.1); Protein, Total 7.8 g/dL (6.4-8.2); Sodium Level 139 mmol/L (136-145)
== END | disposition home or self-care (01) ==
LOC: LAB 10:36
PROVIDERS: Visit Provider Nurse Practitioner Adult Health
DX: E87.6 Hypokalemia (principal)
CPT/HCPCS: 36415; 80053; 85027

== ENCOUNTER 2021-10-31 06:52 | Emergency (ER) | payer MEDICAID, SELFPAY ==
[2021-10-31 06:52] VITALS: BP 168/78; PULSE 125; RESP 17; TEMP 36.6; O2SAT 100; BMI 27.1
[2021-10-31] MEDS: Ketorolac 15 MG/ML Vial IV (07:42)
[2021-10-31] MEDS: 0.9% Normal Saline 1,000 ML 1000 ML IV (07:42)
[2021-10-31] MEDS: Ondansetron 4 MG/2 ML Vial IV (07:42)
[2021-10-31] MEDS: Famotidine 200 MG/20 ML MDV 20 MG in 0.9% Normal Saline (Pres. free 8 ML 300 MG IV (07:45)
[2021-10-31 07:47] LABS: Absolute Lymphocyte Count 2.05 X10^3/uL (0.83-4.51); Basophil# 0.02 X10^3/uL; Basophil% 0.3 % (0-1); Eosinophil# 0.04 X10^3/uL; Eosinophils% 0.6 % (0-5); Hematocrit 41.6 % (37-47); Hemoglobin 13.5 g/dL (12.0-15.0); Lymphocyte # 2.05 X10^3/ul (0.83-4.51); Mean Corp Hgb Conc 32.5 g/dL (32-36); Mean Corpuscular Hgb 25.1 pg (27.0-32.0); Mean Corpuscular Volume 77.3 fL (81-99); Mean Platelet Vol. 9.4 fl (6.2-12.0); Monocyte# 0.51 X10^3/uL; Monocyte% 7.7 % (0-10); NRBC Flagged by Analyzer 0 % (0-5); Neutrophil # 3.98 X10^3/uL (2.7-7.7); Neutrophil % 60.2 % (47-70); Platelet Count 383 K/mm3 (150-450); RBC Distribution Width SD 41.5 fl (35.1-43.9); Red Blood Count 5.38 M/mm3 (4.2-5.4); White Blood Count 6.6 K/mm3 (4.4-11.0)
[2021-10-31 07:50] LABS: Bacteria 0 SEEN /hpf (None Seen); Red Blood Cells-Urine 0 SEEN /hpf (0-5)
[2021-10-31 07:53] LABS: Color, Urine Yellow (Yellow); Glucose, Dipstick Normal (Normal); Ketone-Dipstick 5 mg/dl (Negative); Leukocyte Esterase-Dipstick 500 /ul (Negative); Nitrite-Dipstick Negative (Negative); Occult Blood-Urine 25 /ul (Negative); Protein-Dipstick 30 mg/dl (Negative); Specific Gravity, Urine 1.025 (1.002-1.030); Urine Clarity Sl. Cloudy (Clear); Urine Urobilinogen 1 mg/dl (Normal)
[2021-10-31 07:58] LABS: Urine Bilirubin Dipstick 1 mg/dL (Negative)
[2021-10-31 08:03] LABS: Internal QC Validated? YES +Cl - CLEAR BKGD; Pregnancy, Urine Negative Negative; Squamous Epithelial Cells - UA 5-10 SEEN /hpf (5-10); White Blood Cells 25-50 SEEN /hpf (0-5)
--- NOTE | 2021-10-31 08:03 | ED.VIS.GI ---
HPI HPI - GI History of Present Illness Chief Complaint: Abd Pain Informant: patient Narrative Narrative: Patient is a 21-year-old female with history of anxiety, PTSD and chronic pelvic pain presenting with left upper quadrant abdominal pain rating to her back. Patient states the pain is also worse with deep breaths. Pain is constant and stabbing in nature. She has been doing some ongoing nausea and vomiting as well as chronic abdominal pain but states this feels more severe and different than her normal symptoms. Patient also notes she has been having ongoing diarrhea. She states there is been a small amount of blood in her stool intermittently. She denies any urinary symptoms. Patient had abdominal x-ray ordered by her primary care doctor 12 days ago. At that time it showed large stool burden. Patient states she has had diarrhea since but has not had a significant volume of stool evacuated. Did not take anything for her symptoms prior to arrival. [facility] Medical History Anxiety Asthma Depression Diarrhea Endometriosis GERD (gastroesophageal reflux disease) Migraine Pelvic pain Pott disease PTSD (post-traumatic stress disorder) Thyroid disease Upper abdominal pain Home Medications albuterol sulfate 90 mcg/actuation aerosol inhaler 2 puff inhalation PRN PRN Wheezing 06/14/21 [History Last Taken Unknown] epinephrine 0.3 mg/0.3 mL injection, auto-injector 1 mg IM PRN PRN Allergic Reaction 06/14/21 [History Last Taken Unknown] prazosin 1 mg capsule 1 mg PO BID 06/14/21 [History Last Taken Unknown] aripiprazole 2 mg tablet 2 mg PO QHS 07/31/21 [History Last Taken Unknown] dicyclomine 10 mg capsule 20 mg PO TIDAC #20 CAPSULES 10/06/21 [Rx Last Taken Unknown] fluoxetine 10 mg capsule 3 cap PO DAILY 10/06/21 [History Last Taken Unknown] gabapentin 100 mg capsule 1 cap PO TID PRN Pain 10/06/21 [History Last Taken Unknown] ondansetron 4 mg disintegrating tablet 4 mg PO Q8H PRN PRN Nausea #10 tabs 10/06/21 [Rx Last Taken Unknown] topiramate 25 mg tablet 1 tab PO TID 10/06/21 [History Last Taken Unknown] metoclopramide HCl 10 mg tablet 10 mg PO 4X/DAY PRN Headache #20 tabs 10/20/21 [Rx Last Taken Unknown] omeprazole 20 mg capsule,delayed release 20 mg PO DAILY 10/25/21 [History Last Taken Unknown] simethicone 80 mg chewable tablet (Gas Relief (simethicone)) 80 mg PO BID-QID PRN Pain 10/25/21 [History Last Taken Unknown] cephalexin 500 mg capsule 500 mg PO Q6 7 days #28 caps 10/31/21 [Rx Last Taken Unknown] Allergy/AdvReac Type Severity Reaction Status Date / Time sertraline [From Zoloft] Allergy Anaphylaxis Verified 10/31/21 06:57 silicone Allergy Rash Verified 10/31/21 06:57 lactose AdvReac Upset Verified 10/31/21 06:57 Stomach NASAL SPRAY Allergy Hives Uncoded 10/31/21 06:57 Family History Father Anxiety Depression Asthma Thyroid disorder Mother Asthma Diabetes Anxiety Depression Brother Oleksandr-Danlos syndrome Social History household members: none Smoking Status: Current every day smoker tobacco type: e-cigarettes alcohol intake: current substance use type: does not use ROS ROS ED Constitutional Constitutional ED: Denies chills or fever(s) ENT ENT ED: Denies sore throat Cardiovascular Cardiovascular: Denies chest pain Respiratory/Chest Respiratory/Chest: Reports other Details: Pain in her abdomen worse with deep breathing ; Denies cough or dyspnea Gastrointestinal Gastrointestinal: Reports abdominal pain, diarrhea, nausea and vomiting Genitourinary Genitourinary ED: Reports other Details: On Depo-Provera, not concern for ; Denies dysuria or hematuria Musculoskeletal Musculoskeletal: Reports back pain; Denies myalgias Integumentary Denies rash Neurologic Neurologic: Denies headache(s), paresthesias or weakness Psychiatric Psychiatric: Denies anxiety EXAM Physical Exam Const Vital Signs: 10/31/21 06:52 Temperature 97.8 F Temperature Source Temporal Pulse Rate 125 H Respiratory Rate 17 Blood Pressure 168/78 H Blood Pressure Mean 108 Pulse Ox 100 Oxygen Delivery Method Room Air Positive well nourished and well developed General Appearance ED: well developed and NAD HEENT Reports moist mucous membranes normocephalic and atraumatic Eyes PERRL and EOMs intact bilaterally Neck supple and no JVD Resp normal respiratory effort and clear to auscultation bilaterally Cardio regular rhythm and no murmurs Rate: tachycardic GI non-distended and no masses Palpation: soft and tender epigastric and LUQ; Negative for guarding or rigid Back/Spine General Back: CVA tenderness left Cervical Spine: Negative for cervical spine tenderness Thoracic Spine / Upper Back: Negative for thoracic spinal tenderness Lumbar Spine / Lower Back: Negative for lumbar spinal tenderness Extremity full ROM General Extremety ED: Negative for edema or tenderness General Extremity: Negative for edema Neuro CN's II-XII intact bilaterally, moves all extremities and gait normal Motor Exam: Negative for general weakness Psych mental status grossly normal and thought process normal Skin no wounds General Skin Exam: Negative for jaundice MDM MDM MDM Narrative Medical decision making narrative: Patient is evaluated for left sided abdominal pain. There is a pleuritic component to it. Patient is have a history of chronic abdominal pain. She states this pain is different. On exam patient has tenderness in her left upper quadrant as well as her left CVA tenderness. Differential includes referred pleuritic pain, kidney stone, pyelonephritis or colitis. Patient is tachycardic upon and hypertensive. She is given IV fluids as well as IV Toradol. CBC is largely normal with no leukocytosis, left shift or anemia. BMP shows some signs consistent with dehydration with a CO2 of 17 as well as mild hypokalemia at 3.2. Of note this potassium is actually better than it was on previous visit. High since he troponin is less than 3 and I feel like this effectively rules out ACS especially given the patient's young age and lack of risk factors. D-dimer is negative. She has no other risk factors for PE I do not think a CTA is indicated. Urinalysis does show 500 leukoesterase with negative nitrites, 25-50 white blood cells but [address] of the abdomen pelvis obtained looking for an acute intra-abdominal abnormality. It is largely negative. Patient be treated as a pyelonephritis given her left-sided pain, pyuria and tachycardia. She already has Bentyl as well as nausea medications at home. She is also instructed to take [id number] Tylenol and/or ibuprofen as needed for pain. She has follow-up with Dr. Hdz in December. She will follow-up with her primary care doctor. Is counseled return precautions. She verbalizes agreement understanding with this plan. Patient discharged home in improved condition. Lab Data Attestation: I reviewed the patient's lab results. Labs: Laboratory Results - last 24 hr 10/31/21 10/31/21 10/31/21 06:59 06:59 07:10 WBC 6.6 RBC 5.38 Hgb 13.5 Hct 41.6 MCV 77.3 L MCH 25.1 L MCHC 32.5 RDW Std Deviation 41.5 RDW Coeff of Anoop 15.0 H Plt Count 383 MPV 9.4 Immature Gran % (Auto) 0.200 Neut % (Auto) 60.2 Lymph % (Auto) 31.0 Gray % (Auto) 7.7 Eos % (Auto) 0.6 Baso % (Auto) 0.3 Absolute Neuts (auto) 4.0 Absolute Lymphs (auto) 2.05 Nucleated RBC % 0 D-Dimer Quant (PE/DVT) Sodium 140 Potassium 3.2 L Chloride 111 H Carbon Dioxide 17.0 L Anion Gap 12 BUN 7 Creatinine 0.93 Estim Creat Clear Calc 83.32 Est GFR (MDRD) Af Amer 98 Est GFR (MDRD) Non-Af 81 BUN/Creatinine Ratio 7.5 L Glucose 94 Lactic Acid Calcium 8.9 Total Bilirubin 0.20 AST 12 L ALT 20 Alkaline Phosphatase 106 Troponin I High Sens < 3 L Total Protein 7.8 Albumin 3.6 Globulin 4.2 Albumin/Globulin Ratio 0.9 Lipase 59 L Urine Color Yellow Urine Clarity Sl. Cloudy Urine pH 5.0 Ur Specific [place] 1.025 Urine Protein 30 H Urine Glucose (UA) Normal Urine Ketones 5 H Urine Occult Blood 25 H Urine Nitrite Negative Urine Bilirubin 1 H Urine Urobilinogen 1 H Ur Leukocyte Esterase 500 H Urine RBC 0 SEEN Urine WBC 25-50 SEEN Ur Squamous Epith Cells 5-10 SEEN Urine Bacteria 0 SEEN Urine Mucus 2+ Urine Test Negative 10/31/21 10/31/21 07:40 07:40 WBC RBC Hgb Hct MCV MCH MCHC RDW Std Deviation RDW Coeff of Anoop Plt Count MPV Immature Gran % (Auto) Neut % (Auto) Lymph % (Auto) Gray % (Auto) Eos % (Auto) Baso % (Auto) Absolute Neuts (auto) Absolute Lymphs (auto) Nucleated RBC % D-Dimer Quant (PE/DVT) < 0.27 L Sodium Potassium Chloride Carbon Dioxide Anion Gap BUN Creatinine Estim Creat Clear Calc Est GFR (MDRD) Af Amer Est GFR (MDRD) Non-Af BUN/Creatinine Ratio Glucose Lactic Acid 1.0 Calcium Total Bilirubin AST ALT Alkaline Phosphatase Troponin I High Sens Total Protein Albumin Globulin Albumin/Globulin Ratio Lipase Urine Color Urine Clarity Urine pH Ur Specific [place] Urine Protein Urine Glucose (UA) Urine Ketones Urine Occult Blood Urine Nitrite Urine Bilirubin Urine Urobilinogen Ur Leukocyte Esterase Urine RBC Urine WBC Ur Squamous Epith Cells Urine Bacteria Urine Mucus Urine Test Radiography Diagnostic Testing: Clinical Impression(s) from Imaging Studies Abdomen/Pelvis CT 10/31/21 08:13 IMPRESSION: No acute abnormality is seen. Electronically Signed: Eugenio Weathers MD at 9:09 EDT , Discharge Plan Triage Chief Complaint: Abd Pain ED Provider: Alondra Chi Dx/Rx/DC Orders Instructions: ED Flank Pain, Uncertain Cause, ED CYSTITIS Female Adult Prescriptions: New cephalexin 500 mg capsule 500 mg PO Q6 7 Days Qty: 28 0RF No Action omeprazole 20 mg capsule,delayed release(DR/EC) 20 mg PO DAILY simethicone [Gas Relief (simethicone)] 80 mg tablet,chewable 80 mg PO BID-QID PRN (Reason: Pain) prazosin 1 mg capsule 1 mg PO BID Label Comments: take 1 capsule by mouth at bedtime epinephrine 0.3 mg/0.3 mL auto-injector 1 mg IM PRN PRN (Reason: Allergic Reaction) Label Comments: INJECT INTO THE MUSCLE NEEDED FOR ANAPHYLAXIS REACTION albuterol sulfate 90 mcg/actuation HFA aerosol inhaler 2 puff INHALATION PRN PRN (Reason: Wheezing) Label Comments: inhale 2 puffs by mouth and INTO THE LUNGS every 4 hours if neede... (REFER TO PRESCRIPTION NOTES). aripiprazole 2 mg tablet 2 mg PO QHS topiramate 25 mg tablet 1 tab PO TID Label Comments: take 1 tablet by mouth once daily at bedtime for 1 week then INCR... (REFER TO PRESCRIPTION NOTES). fluoxetine 10 mg capsule 3 cap PO DAILY gabapentin 100 mg capsule 1 cap PO TID PRN (Reason: Pain) Label Comments: take 1 capsule by mouth three times a day if needed for headache for up to 90 DAYS ondansetron [ondansetron] 4 mg tablet,disintegrating 4 mg PO Q8H PRN PRN (Reason: Nausea) Qty: 10 0RF dicyclomine 10 mg capsule 20 mg PO TIDAC Qty: 20 0RF metoclopramide HCl [metoclopramide HCl] 10 MG tablet 10 mg PO 4X/DAY PRN (Reason: Headache) Qty: 20 0RF Primary Care Provider: [facility] Sury Queen Referrals: [facility],Sury Catherine [Primary Care Provider] - Disposition Disposition: Home, Self Care
[2021-10-31 08:04] LABS: Mucous, Urine 2+ /hpf (<or=2+)
[2021-10-31 08:06] LABS: ALB/GLOB Ratio 0.9 RATIO (0.9-2.4); AST(SGOT) 12 U/L (15-37); Alanine Aminotransfer ALT/SGPT 20 U/L (13-56); Albumin, Serum 3.6 g/dL (3.2-5.0); Alkaline Phosphatase 106 U/L (45-117); Anion Gap 12 (5-15); BUN 7 mg/dL (7-18); BUN/Creat Ratio 7.5 RATIO (10-20); Calcium,Total 8.9 mg/dL (8.5-10.1); Chloride 111 mmol/L (98-107); Creatinine, Serum 0.93 mg/dL (0.55-1.02); EST Glomerular Filtration Rate 81 mL/min (>60); Est Glom Filt Rate - Afr Amer 98 mL/min (>60); Estimated Creatinine Clearance 83.32 ml/min; Globulin 4.2 g/dL (2.2-4.2); Glucose 94 mg/dL (74-106); Lipase 59 U/L (73-393); Potassium 3.2 mmol/L (3.5-5.1); Protein, Total 7.8 g/dL (6.4-8.2); Sodium Level 140 mmol/L (136-145); Troponin-I HS < 3 pg/mL (3.0-54.0)
[2021-10-31 08:10] LABS: D-Dimer Quantitative (DVT/PE) < 0.27 FEU/ug/m (0.27-0.49)
--- NOTE | 2021-10-31 08:13 | CT_ITS ---
STUDY: CT ABDOMEN AND PELVIS WITH CONTRAST REASON FOR EXAM: Female, 21 years old. Left flank pain, Left UQ pain RADIATION DOSAGE (If Supplied By Facility): CTDIvol = ( 12.35 ) mGy, DLP = ( 577.88 ) mGycm TECHNIQUE: Transaxial images were obtained from the dome of the diaphragm to the symphysis pubis without oral contrast. IV 100mL Isovue-300 was administered. Sagittal and coronal images were reconstructed. Individualized dose optimization techniques were used for this CT. COMPARISON: Comparison is made with prior study dated 11/22/2020. FINDINGS: The visualized lung bases are unremarkable. The visualized portions of the heart are within normal limits. Stable 1.2 cm hypodensity in the anterior aspect of the right upper liver medially adjacent to the falciform ligament. Normal gallbladder and extrahepatic biliary system. Normal spleen. Normal pancreas. Normal bilateral adrenal glands. Normal right kidney. Normal left kidney. Normal visualized stomach. Normal small intestine. Normal colon. The appendix is visualized and appears normal. Normal abdominal aorta. Normal inferior vena cava. Normal retroperitoneum. Normal urinary bladder. Small follicles are seen in both ovaries. Normal abdominal wall. Normal osseous structures. CT/Abdomen/Pelvis W IV Cont ONLY IMPRESSION: No acute abnormality is seen. Electronically Signed: Eugenio Weathers MD at 9:09 EDT ,
[2021-10-31] MEDS: Cephalexin 250 MG Capsule 500 MG PO (09:30)
[2021-10-31] MEDS: Potassium Chloride Oral Tablet 20 MEQ 40 MEQ PO (09:31)
[2021-10-31 09:35] VITALS: BP 147/75; PULSE 98; RESP 16; O2SAT 100
== END 2021-10-31 09:36 | disposition home or self-care (01) ==
PROVIDERS: Emergency Provider Emergency Medicine; Visit Provider Emergency Medicine
DX: R10.12 Left upper quadrant pain (principal); F41.9 Anxiety disorder, unspecified; R11.2 Nausea with vomiting, unspecified; R19.7 Diarrhea, unspecified; F17.200 Nicotine dependence, unspecified, uncomplicated; F43.10 Post-traumatic stress disorder, unspecified; J45.909 Unspecified asthma, uncomplicated; F32.A Depression, unspecified
CPT/HCPCS: 74177; 80053; 81001; 81025; 83605; 83690; 84484; 85025; 85379; 87086; 87088; 96361; 96365; 96375; 99284; J7030; Q9967; A4216; J2405; J3490

== ENCOUNTER 2021-11-01 05:30 | Emergency (ER) | payer MEDICAID, SELFPAY ==
[2021-11-01 08:29] LABS: BUN 7 mg/dL (7-18); BUN/Creat Ratio 6.7 RATIO (10-20); Creatinine, Serum 1.05 mg/dL (0.55-1.02); EST Glomerular Filtration Rate 71 mL/min (>60); Est Glom Filt Rate - Afr Amer 86 mL/min (>60); Glucose 92 mg/dL (74-106); Internal QC Validated? YES +Cl - CLEAR BKGD; Pregnancy, Serum, hCG Quali. NEGATIVE Negative
[2021-11-01 08:30] LABS: ALB/GLOB Ratio 0.9 RATIO (0.9-2.4); AST(SGOT) 9 U/L (15-37); Alanine Aminotransfer ALT/SGPT 17 U/L (13-56); Albumin, Serum 3.5 g/dL (3.2-5.0); Alkaline Phosphatase 99 U/L (45-117); Anion Gap 7 (5-15); Calcium,Total 9.1 mg/dL (8.5-10.1); Chloride 116 mmol/L (98-107); Lipase 73 U/L (73-393); Protein, Total 7.5 g/dL (6.4-8.2); Sodium Level 141 mmol/L (136-145)
[2021-11-01 09:03] LABS: Mucous, Urine 0 SEEN /hpf (<or=2+); Squamous Epithelial Cells - UA 0 SEEN /hpf (5-10)
[2021-11-01 09:04] LABS: Color, Urine Yellow (Yellow); Glucose, Dipstick Normal (Normal); Ketone-Dipstick Negative (Negative); Urine Bilirubin Dipstick Negative (Negative); Urine Clarity Clear (Clear)
[2021-11-01 09:05] LABS: Bacteria 1+ /hpf (None Seen); Leukocyte Esterase-Dipstick 100 /ul (Negative); Nitrite-Dipstick Negative (Negative); Occult Blood-Urine 10 /ul (Negative); Protein-Dipstick Negative (Negative); Red Blood Cells-Urine 0-5 SEEN /hpf (0-5); Urine Urobilinogen Normal (Normal); White Blood Cells 0-5 SEEN /hpf (0-5)
--- NOTE | 2021-11-01 23:40 | EDS_ITS ---
HPI HPI - GI History of Present Illness Informant: patient Narrative Narrative: Patient presents with nausea and vomiting. She has been seen before for this. She has history of chronic abdominal pain. She also has POTS syndrome, asthma and endometriosis. She has had EGDs and colonoscopies. Last for about a year ago. Only abdominal surgery was diagnostic laparoscopy for endometriosis. She really has chronic problems with nausea and vomiting. She was just seen here recently. She has been having soft stools for about 2 months. She has an appointment with gastroenterology in December now. She has not seen any black or blood in the stool. She did have a dark vomiting twice but no red blood. No change in her pain symptoms. No fevers or chills. Nothing really makes this better or worse. At first she said she had nothing at home for nausea but then she stated she does have some Zofran but it does not work really well for her. I am not sure when she last took it. This chart is done in its entirety a day or more after the patient's visit. This is due to an extended computerized downtime that included computer, Internet, phones, radiology system and transient inability to obtain medications. There may be details that are missed due to the delayed documentation. There was also no ability to research old information that we may have on the patient. Also, this is done with [employer] software that may have errors. Minimizing these errors are attempted, but all may not be able to be found and corrected. [facility] Medical History Anxiety Asthma Depression Diarrhea Endometriosis GERD (gastroesophageal reflux disease) Migraine Pelvic pain Pott disease PTSD (post-traumatic stress disorder) Thyroid disease Upper abdominal pain Home Medications albuterol sulfate 90 mcg/actuation aerosol inhaler 2 puff inhalation PRN PRN Whe ezing 06/14/21 [History Last Taken Unknown] epinephrine 0.3 mg/0.3 mL injection, auto-injector 1 mg IM PRN PRN Allergic Reaction 06/14/21 [History Last Taken Unknown] prazosin 1 mg capsule 1 mg PO BID 06/14/21 [History Last Taken Unknown] aripiprazole 2 mg tablet 2 mg PO QHS 07/31/21 [History Last Taken Unknown] dicyclomine 10 mg capsule 20 mg PO TIDAC #20 CAPSULES 10/06/21 [Rx Last Taken Unknown] fluoxetine 10 mg capsule 3 cap PO DAILY 10/06/21 [History Last Taken Unknown] gabapentin 100 mg capsule 1 cap PO TID PRN Pain 10/06/21 [History Last Taken Unknown] ondansetron 4 mg disintegrating tablet 4 mg PO Q8H PRN PRN Nausea #10 tabs 10/06/21 [Rx Last Taken Unknown] topiramate 25 mg tablet 1 tab PO TID 10/06/21 [History Last Taken Unknown] metoclopramide HCl 10 mg tablet 10 mg PO 4X/DAY PRN Headache #20 tabs 10/20/21 [Rx Last Taken Unknown] omeprazole 20 mg capsule,delayed release 20 mg PO DAILY 10/25/21 [History Last Taken Unknown] simethicone 80 mg chewable tablet (Gas Relief (simethicone)) 80 mg PO BID-QID PRN Pain 10/25/21 [History Last Taken Unknown] cephalexin 500 mg capsule 500 mg PO Q6 7 days #28 caps 10/31/21 [Rx Last Taken Unknown] metoclopramide HCl 10 mg tablet (Reglan) 10 mg PO Q6H PRN nausea and vomiting #14 tabs 11/01/21 [Rx Last Taken Unknown] sucralfate 100 mg/mL oral suspension (Carafate) 10 ml PO BID PRN epigastric pain #400 mL 11/01/21 [Rx Last Taken Unknown] Allergy/AdvReac Type Severity Reaction Status Date / Time sertraline [From Zoloft] Allergy Anaphylaxis Verified 11/01/21 14:26 silicone Allergy Rash Verified 11/01/21 14:26 lactose AdvReac Upset Verified 11/01/21 14:26 Stomach NASAL SPRAY Allergy Hives Uncoded 11/01/21 14:26 Family History Father Anxiety Depression Asthma Thyroid disorder Mother Asthma Diabetes Anxiety Depression Brother Oleksandr-Danlos syndrome Social History household members: none Smoking Status: Current every day smoker tobacco type: e-cigarettes alcohol intake: current substance use type: does not use ROS ROS ED Constitutional Constitutional ED: Denies fever(s) ENT ENT ED: Denies rhinorrhea or sore throat Cardiovascular Cardiovascular: Denies chest pain or palpitations Respiratory/Chest Respiratory/Chest: Denies cough or dyspnea Gastrointestinal Gastrointestinal: Reports abdominal pain, diarrhea, nausea and vomiting; Denies constipation or melena Genitourinary Genitourinary ED: Denies hematuria or urinary frequency Musculoskeletal Musculoskeletal: Denies arthralgias or myalgias Integumentary Denies rash Neurologic Neurologic: Denies headache(s) Psychiatric Psychiatric: Reports anxiety Endocrine Endocrinology: Denies polydipsia or polyuria Hematologic/Lymphatic Hematologic/Lymphatic: Denies easy bleeding or easy bruising Allergic/Immunologic Allergic/Immunologic ED: Denies urticaria EXAM Physical Exam Const Positive well nourished and well developed General Appearance ED: well developed; Negative for pallor HEENT Reports moist mucous membranes Negative for atraumatic Eyes General Eye ED: Negative for pale conjunctiva or scleral icterus Neck no lymphadenopathy Resp normal respiratory effort Cardio regular rate and regular rhythm GI non-distended GI Narrative: Minimal epigastric tenderness without rebound or guarding. Overall this is quite benign abdomen. She states that all her pain is in the epigastric area. When I press in that area she states that is where it hurts. But there is no objective indication of notable tenderness. Back/Spine no CVA tenderness Extremity Extremity Narrative: No petechiae or purpura. General Extremety ED: Negative for edema or tenderness General Extremity: Negative for edema Neuro Sensorium / Orientation: alert Psych mental status grossly normal Skin General Skin Exam: Negative for jaundice or pallor MDM MDM MDM Narrative Medical decision making narrative: Blood work showed electrolytes were overall unremarkable. Minimal decrease of her bicarb but this is actually better than yesterday. No sign of dehydration. is negative. Urine is clean. Hemoglobin is 12 7 which is just slightly lower than yesterday but within her normal range. Patient has had no vomiting here. No recurrence of episodes. She is on omepraz ole and Carafate. I will write for some Phenergan by paper prescription. She will follow-up with GI. Lab Data Attestation: I reviewed the patient's lab results. Labs: Laboratory Results - last 24 hr 11/01/21 11/01/21 11/01/21 05:34 05:34 06:58 Sodium 141 Potassium 4.0 Chloride 116 H Carbon Dioxide 18.0 L Anion Gap 7 BUN 7 Creatinine 1.05 H Est GFR (MDRD) Af Amer 86 Est GFR (MDRD) Non-Af 71 BUN/Creatinine Ratio 6.7 L Glucose 92 Calcium 9.1 Total Bilirubin 0.20 AST 9 L ALT 17 Alkaline Phosphatase 99 Total Protein 7.5 Albumin 3.5 Globulin 4.0 Albumin/Globulin Ratio 0.9 Lipase 73 Serum , Qual NEGATIVE Urine Color Yellow Urine Clarity Clear Urine pH 7.0 Ur Specific [place] 1.010 Urine Protein Negative Urine Glucose (UA) Normal Urine Ketones Negative Urine Occult Blood 10 H Urine Nitrite Negative Urine Bilirubin Negative Urine Urobilinogen Normal Ur Leukocyte Esterase 100 H Urine RBC 0-5 SEEN Urine WBC 0-5 SEEN Ur Squamous Epith Cells 0 SEEN Urine Bacteria 1+ Urine Mucus 0 SEEN Discharge Plan Triage ED Provider: Chaz Toussaint Dx/Rx/DC Orders Clinical Impression: Acute epigastric pain, Nausea & vomiting Prescriptions: No Action omeprazole 20 mg capsule,delayed release(DR/EC) 20 mg PO DAILY simethicone [Gas Relief (simethicone)] 80 mg tablet,chewable 80 mg PO BID-QID PRN (Reason: Pain) prazosin 1 mg capsule 1 mg PO BID Label Comments: take 1 capsule by mouth at bedtime epinephrine 0.3 mg/0.3 mL auto-injector 1 mg IM PRN PRN (Reason: Allergic Reaction) Label Comments: INJECT INTO THE MUSCLE NEEDED FOR ANAPHYLAXIS REACTION albuterol sulfate 90 mcg/actuation HFA aerosol inhaler 2 puff INHALATION PRN PRN (Reason: Wheezing) Label Comments: inhale 2 puffs by mouth and INTO THE LUNGS every 4 hours if neede... (REFER TO PRESCRIPTION NOTES). aripiprazole 2 mg tablet 2 mg PO QHS topiramate 25 mg tablet 1 tab PO TID Label Comments: take 1 tablet by mouth once daily at bedtime for 1 week then INCR... (REFER TO PRESCRIPTION NOTES). fluoxetine 10 mg capsule 3 cap PO DAILY gabapentin 100 mg capsule 1 cap PO TID PRN (Reason: Pain) Label Comments: take 1 capsule by mouth three times a day if needed for headache for up to 90 DAYS ondansetron [ondansetron] 4 mg tablet,disintegrating 4 mg PO Q8H PRN PRN (Reason: Nausea) Qty: 10 0RF dicyclomine 10 mg capsule 20 mg PO TIDAC Qty: 20 0RF metoclopramide HCl [metoclopramide HCl] 10 MG tablet 10 mg PO 4X/DAY PRN (Reason: Headache) Qty: 20 0RF cephalexin 500 mg capsule 500 mg PO Q6 7 Days Qty: 28 0RF sucralfate [Carafate] 100 mg/mL suspension 10 ml PO BID PRN (Reason: epigastric pain) Qty: 400 0RF metoclopramide HCl [Reglan] 10 mg tablet 10 mg PO Q6H PRN (Reason: nausea and vomiting) Qty: 14 0RF [facility] Disposition: Home, Self Care Discharge Date/Time: 11/01/21 08:07
[2021-11-02 09:21] LABS: Absolute Lymphocyte Count 1.56 X10^3/uL (0.83-4.51); Absolute Neutrophil Count 2.7 X10^3/uL (2.0-7.7); Basophil# 0.02 X10^3/uL; Basophil% 0.4 % (0-1); Eosinophil# 0.03 X10^3/uL; Eosinophils% 0.6 % (0-5); Hematocrit 39.8 % (37-47); Hemoglobin 12.7 g/dL (12.0-15.0); Lymphocyte # 1.56 X10^3/ul (0.83-4.51); Lymphocyte % 33.6 % (19-41); Mean Corp Hgb Conc 31.9 g/dL (32-36); Mean Corpuscular Hgb 24.7 pg (27.0-32.0); Mean Corpuscular Volume 77.4 fL (81-99); Mean Platelet Vol. 9.5 fl (6.2-12.0); Monocyte# 0.36 X10^3/uL; Monocyte% 7.8 % (0-10); Neutrophil # 2.66 X10^3/uL (2.7-7.7); Neutrophil % 57.4 % (47-70); Platelet Count 386 K/mm3 (150-450); RBC Distribution Width CV 15.2 % (11.6-14.6); RBC Distribution Width SD 42.5 fl (35.1-43.9); Red Blood Count 5.14 M/mm3 (4.2-5.4); White Blood Count 4.6 K/mm3 (4.4-11.0)
[2021-11-02 09:22] LABS: NRBC Flagged by Analyzer 0 % (0-5)
== END 2021-11-01 08:07 | disposition home or self-care (01) ==
LOC: ED 07:50
PROVIDERS: Emergency Provider Emergency Medicine; Visit Provider Emergency Medicine
DX: R11.2 Nausea with vomiting, unspecified (principal); I49.8 Other specified cardiac arrhythmias; R10.13 Epigastric pain; J45.909 Unspecified asthma, uncomplicated; F17.210 Nicotine dependence, cigarettes, uncomplicated; K21.9 Gastro-esophageal reflux disease without esophagitis
CPT/HCPCS: 80053; 81001; 83690; 84703

== ENCOUNTER 2021-11-01 14:22 | Emergency (ER) | payer MEDICAID, SELFPAY ==
[2021-11-01 14:23] VITALS: BP 116/76; PULSE 96; RESP 18; TEMP 36.8; O2SAT 99; BMI 27.1
[2021-11-01 14:36] VITALS: BP 123/79; PULSE 82; RESP 15; O2SAT 98
--- NOTE | 2021-11-01 15:16 | ED.VIS.GI ---
HPI HPI - GI History of Present Illness Chief Complaint: GI Bleed Narrative Narrative: This is a 21-year-old female with multiple visits to the ER in the last month for abdominal pain, nausea and vomiting. She was seen yesterday and had lab work drawn which was normal. At that point she stated she had some blood in her stool but her hemoglobin was stable. She was seen again this morning she had some more vomiting repeat lab work was also normal. Patient previously diagnosed with UTI and has been taking her antibiotics which is Keflex. Today she notes that she followed up with her primary care physician who started on omeprazole and told her to keep coming back to the emergency room until she has her pain figured out. She has a follow-up with Dr. Hdz pendhector. She called their office and told them that she had had some tobacco like emesis and they told her to come directly to the emergency room. She states that she told them she had already been to the emergency room twice. Patient presenting with epigastric pain and nausea. She has had a few episodes of black emesis. She is holding down fluids. She states that when she ate mashed potatoes she vomited. She not complaining of bloody stools anymore. No fevers or chills. No chest pain or shortness of breath. No headache. [facility] Medical History Anxiety Asthma Depression Diarrhea Endometriosis GERD (gastroesophageal reflux disease) Migraine Pelvic pain Pott disease PTSD (post-traumatic stress disorder) Thyroid disease Upper abdominal pain Home Medications albuterol sulfate 90 mcg/actuation aerosol inhaler 2 puff inhalation PRN PRN Wheezing 06/14/21 [History Last Taken Unknown] epinephrine 0.3 mg/0.3 mL injection, auto-injector 1 mg IM PRN PRN Allergic Reaction 06/14/21 [History Last Taken Unknown] prazosin 1 mg capsule 1 mg PO BID 06/14/21 [History Last Taken Unknown] aripiprazole 2 mg tablet 2 mg PO QHS 07/31/21 [History Last Taken Unknown] dicyclomine 10 mg capsule 20 mg PO TIDAC #20 CAPSULES 10/06/21 [Rx Last Taken Unknown] fluoxetine 10 mg capsule 3 cap PO DAILY 10/06/21 [History Last Taken Unknown] gabapentin 100 mg capsule 1 cap PO TID PRN Pain 10/06/21 [History Last Taken Unknown] ondansetron 4 mg disintegrating tablet 4 mg PO Q8H PRN PRN Nausea #10 tabs 10/06/21 [Rx Last Taken Unknown] topiramate 25 mg tablet 1 tab PO TID 10/06/21 [History Last Taken Unknown] metoclopramide HCl 10 mg tablet 10 mg PO 4X/DAY PRN Headache #20 tabs 10/20/21 [Rx Last Taken Unknown] omeprazole 20 mg capsule,delayed release 20 mg PO DAILY 10/25/21 [History Last Taken Unknown] simethicone 80 mg chewable tablet (Gas Relief (simethicone)) 80 mg PO BID-QID PRN Pain 10/25/21 [History Last Taken Unknown] cephalexin 500 mg capsule 500 mg PO Q6 7 days #28 caps 10/31/21 [Rx Last Taken Unknown] metoclopramide HCl 10 mg tablet (Reglan) 10 mg PO Q6H PRN nausea and vomiting #14 tabs 11/01/21 [Rx Last Taken Unknown] sucralfate 100 mg/mL oral suspension (Carafate) 10 ml PO BID PRN epigastric pain #400 mL 11/01/21 [Rx Last Taken Unknown] Allergy/AdvReac Type Severity Reaction Status Date / Time sertraline [From Zoloft] Allergy Anaphylaxis Verified 11/01/21 14:26 silicone Allergy Rash Verified 11/01/21 14:26 lactose AdvReac Upset Verified 11/01/21 14:26 Stomach NASAL SPRAY Allergy Hives Uncoded 11/01/21 14:26 Family History Father Anxiety Depression Asthma Thyroid disorder Mother Asthma Diabetes Anxiety Depression Brother Oleksandr-Danlos syndrome Social History household members: none Smoking Status: Current every day smoker tobacco type: e-cigarettes alcohol intake: current substance use type: does not use ROS ROS ED Constitutional Constitutional ED: Denies chills or fever(s) ENT ENT ED: Denies rhinorrhea or sore throat Cardiovascular Cardiovascular: Denies chest pain or palpitations Respiratory/Chest Respiratory/Chest: Denies cough or dyspnea Gastrointestinal Gastrointestinal: Reports abdominal pain, nausea, vomiting and other Details: Black emesis Genitourinary Genitourinary ED: Denies dysuria Musculoskeletal Musculoskeletal: Denies arthralgias or back pain Integumentary Denies abscess Neurologic Neurologic: Denies headache(s) or paresthesias Psychiatric Psychiatric: Denies anxiety or depression EXAM Physical Exam Const Vital Signs: 11/01/21 14:23 11/01/21 14:36 11/01/21 17:04 Temperature 98.2 F Temperature Source Temporal Pulse Rate 96 82 52 L Respiratory Rate 18 15 15 Blood Pressure 116/76 123/79 H 104/60 Blood Pressure Mean 89 93 74 Pulse Ox 99 98 100 Oxygen Delivery Method Room Air Room Air Room Air Positive well nourished General Appearance ED: NAD; Negative for pallor HEENT Reports TM's clear and moist mucous membranes normocephalic and atraumatic Tympanic Membrane ED: Yes TM's clear Eyes PERRL and EOMs intact bilaterally General Eye ED: Negative for pale conjunctiva or scleral icterus Resp normal respiratory effort and clear to auscultation bilaterally Effort and Inspection: Negative for respiratory distress or retractions Auscultation: Negative for rales, rhonchi or wheezes Cardio regular rate and regular rhythm GI Palpation: tender epigastric Back/Spine no CVA tenderness Extremity General Extremety ED: Negative for edema or tenderness General Extremity: Negative for edema Neuro CN's II-XII intact bilaterally, moves all extremities and no sensory deficits noted Sensorium / Orientation: alert, oriented to person, oriented to place and oriented to time Motor Exam: strength 5/5 throughout Psych mental status grossly normal Skin General Skin Exam: Negative for jaundice or pallor MDM MDM MDM Narrative Medical decision making narrative: Patient presenting with what she believes was dark-colored emesis. I did not do a Hemoccult stool because the patient previously was seen for blood in her stool. This would likely be positive either way. I did obtain a CBC which shows no leukocytosis. Hemoglobin is 12.1. 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 Platelets are normal. LFTs, lipase, renal function all within normal limits. BUN is not significantly elevated to suggest GI bleed and active quality is low. Patient treated with Haldol and Protonix IV. On reevaluation at 5:10 PM the patient was sleeping. I woke her up and she stated she was feeling improved. I told her that I had spoken with Dr. Hdz who will try to get her seen sooner rather than later that she has been here several times for the similar pain. Since the Zofran is not helping I will put her on Reglan which should help her nausea. She is counseled she can use a laxative for her constipation as well which is documented on multiple visits. This Reglan may help as well. She is given Carafate to help with her epigastric discomfort. Return precautions were discussed. Impression: 1. Nausea/vomiting 2. Black emesis 3. Constipation 4. Epigastric pain Lab Data Attestation: I reviewed the patient's lab results. Labs: Laboratory Results - last 24 hr 11/01/21 11/01/21 15:23 15:23 WBC 5.1 RBC 4.90 Hgb 12.1 Hct 37.8 MCV 77.1 L MCH 24.7 L MCHC 32.0 RDW Std Deviation 42.2 RDW Coeff of Anoop 15.2 H Plt Count 385 MPV 9.0 Immature Gran % (Auto) 0.200 Neut % (Auto) 61.4 Lymph % (Auto) 29.6 [place] % (Auto) 7.6 Eos % (Auto) 0.6 Baso % (Auto) 0.6 Absolute Neuts (auto) 3.2 Absolute Lymphs (auto) 1.52 Nucleated RBC % 0 Sodium 139 Potassium 4.0 Chloride 114 H Carbon Dioxide 18.0 L Anion Gap 7 BUN 5 L Creatinine 0.88 Estim Creat Clear Calc 88.06 Est GFR (MDRD) Af Amer 105 Est GFR (MDRD) Non-Af 87 BUN/Creatinine Ratio 5.7 L Glucose 91 Calcium 8.8 Total Bilirubin 0.20 AST 16 ALT 17 Alkaline Phosphatase 90 Total Protein 7.0 Albumin 3.2 Globulin 3.8 Albumin/Globulin Ratio 0.8 L Lipase 64 L Discharge Plan Triage Chief Complaint: GI Bleed Other Complaint: Nausea/Vomiting ED Provider: Jaylen Delgado Dx/Rx/DC Orders Instructions: ED Diet for Vomiting or ... Prescriptions: New sucralfate [Carafate] 100 mg/mL suspension 10 ml PO BID PRN (Reason: epigastric pain) Qty: 400 0RF metoclopramide HCl [Reglan] 10 mg tablet 10 mg PO Q6H PRN (Reason: nausea and vomiting) Qty: 14 0RF No Action omeprazole 20 mg capsule,delayed release(DR/EC) 20 mg PO DAILY simethicone [Gas Relief (simethicone)] 80 mg tablet,chewable 80 mg PO BID-QID PRN (Reason: Pain) prazosin 1 mg capsule 1 mg PO BID Label Comments: take 1 capsule by mouth at bedtime epinephrine 0.3 mg/0.3 mL auto-injector 1 mg IM PRN PRN (Reason: Allergic Reaction) Label Comments: INJECT INTO THE MUSCLE NEEDED FOR ANAPHYLAXIS REACTION albuterol sulfate 90 mcg/actuation HFA aerosol inhaler 2 puff INHALATION PRN PRN (Reason: Wheezing) Label Comments: inhale 2 puffs by mouth and INTO THE LUNGS every 4 hours if neede... (REFER TO PRESCRIPTION NOTES). aripiprazole 2 mg tablet 2 mg PO QHS topiramate 25 mg tablet 1 tab PO TID Label Comments: take 1 tablet by mouth once daily at bedtime for 1 week then INCR... (REFER TO PRESCRIPTION NOTES). fluoxetine 10 mg capsule 3 cap PO DAILY gabapentin 100 mg capsule 1 cap PO TID PRN (Reason: Pain) Label Comments: take 1 capsule by mouth three times a day if needed for headache for up to 90 DAYS ondansetron [ondansetron] 4 mg tablet,disintegrating 4 mg PO Q8H PRN PRN (Reason: Nausea) Qty: 10 0RF dicyclomine 10 mg capsule 20 mg PO TIDAC Qty: 20 0RF metoclopramide HCl [metoclopramide HCl] 10 MG tablet 10 mg PO 4X/DAY PRN (Reason: Headache) Qty: 20 0RF cephalexin 500 mg capsule 500 mg PO Q6 7 Days Qty: 28 0RF Primary Care Provider: [facility] Sury Queen Referrals: Friend,DO Damir [STAFF PHYSICIAN] [facility] - Disposition Disposition: Home, Self Care
[2021-11-01] MEDS: Haloperidol Lactate 5 MG/ML Vial 2 MG IV (15:30)
[2021-11-01] MEDS: 0.9% Normal Saline 1,000 ML 999 ML IV (15:30)
[2021-11-01 15:44] LABS: Absolute Lymphocyte Count 1.52 X10^3/uL (0.83-4.51); Absolute Neutrophil Count 3.2 X10^3/uL (2.0-7.7); Basophil# 0.03 X10^3/uL; Basophil% 0.6 % (0-1); Eosinophil# 0.03 X10^3/uL; Eosinophils% 0.6 % (0-5); Hematocrit 37.8 % (37-47); Hemoglobin 12.1 g/dL (12.0-15.0); Lymphocyte # 1.52 X10^3/ul (0.83-4.51); Lymphocyte % 29.6 % (19-41); Mean Corpuscular Hgb 24.7 pg (27.0-32.0); Mean Corpuscular Volume 77.1 fL (81-99); Monocyte# 0.39 X10^3/uL; Monocyte% 7.6 % (0-10); NRBC Flagged by Analyzer 0 % (0-5); Neutrophil # 3.15 X10^3/uL (2.7-7.7); Neutrophil % 61.4 % (47-70); Platelet Count 385 K/mm3 (150-450); RBC Distribution Width CV 15.2 % (11.6-14.6); RBC Distribution Width SD 42.2 fl (35.1-43.9); White Blood Count 5.1 K/mm3 (4.4-11.0)
[2021-11-01 15:47] LABS: Albumin, Serum 3.2 g/dL (3.2-5.0); BUN 5 mg/dL (7-18); BUN/Creat Ratio 5.7 RATIO (10-20); Creatinine, Serum 0.88 mg/dL (0.55-1.02); EST Glomerular Filtration Rate 87 mL/min (>60); Est Glom Filt Rate - Afr Amer 105 mL/min (>60); Estimated Creatinine Clearance 88.06 ml/min; Glucose 91 mg/dL (74-106)
[2021-11-01 15:48] LABS: ALB/GLOB Ratio 0.8 RATIO (0.9-2.4); AST(SGOT) 16 U/L (15-37); Alanine Aminotransfer ALT/SGPT 17 U/L (13-56); Alkaline Phosphatase 90 U/L (45-117); Anion Gap 7 (5-15); Calcium,Total 8.8 mg/dL (8.5-10.1); Chloride 114 mmol/L (98-107); Globulin 3.8 g/dL (2.2-4.2); Lipase 64 U/L (73-393); Sodium Level 139 mmol/L (136-145)
[2021-11-01 17:04] VITALS: BP 104/60; PULSE 52; RESP 15; O2SAT 100
[2021-11-01 17:20] VITALS: BP 97/50; PULSE 52; RESP 16; O2SAT 98
== END 2021-11-01 17:20 | disposition home or self-care (01) ==
PROVIDERS: Emergency Provider Student in an Organized Health Care Education/Training Program; Visit Provider Student in an Organized Health Care Education/Training Program
DX: R11.2 Nausea with vomiting, unspecified (principal); K59.00 Constipation, unspecified; F17.210 Nicotine dependence, cigarettes, uncomplicated; K92.2 Gastrointestinal hemorrhage, unspecified; K92.1 Melena; R10.13 Epigastric pain
CPT/HCPCS: 36415; 80053; 81001; 83690; 84703; 85025; 96365; 96375; 99283; 99284; J7030; A4216; J2405

== ENCOUNTER → 2021-11-03 | Outpatient (CLI) | payer MEDICAID, SELFPAY ==
--- NOTE | 2021-11-03 08:43 | US_ITS ---
STUDY: ABDOMINAL ULTRASOUND - RIGHT UPPER QUADRANT REASON FOR VISIT: Female, 21 years old NAUSEA WITH VOMITING TECHNIQUE: Ultrasound evaluation of the right upper quadrant was performed with real-time and static bowens-scale imaging. TECHNICAL QUALITY: Adequate. COMPARISON: None. FINDINGS: Liver: The liver measures 11.7 cm. There is normal echogenicity of the liver. The bile ducts are within normal limits. There is hepatic color flow. The direction of portal flow is hepatopetal. There is a 1.8 cm x 1.8 cm x 1.4 cm hyperechoic nodule in the medial aspect of the right lobe of liver adjacent to the falciform ligament. This most likely represents a small hemangioma. Gallbladder: Normal distended gallbladder. The gallbladder wall measures 2.2 mm. There is a negative sonographic Hu''s sign. There is no pericholecystic fluid. There are no gallstones. Common Bile Duct (C.B.D.): The common bile duct measures 3.1 mm. Pancreas: Normal size of the head, body and tail of the pancreas. There is normal echogenicity of the pancreas. There is no demonstrated pancreatic mass or cyst. Right Kidney: Normal size of the right kidney. The right kidney measures 10.2 cm x 3.8 cm x 3.3 cm. Normal renal cortex. The right cortex measures 1.0 cm. There is no demonstrated renal mass or cyst. There is no right hydronephrosis. US/Abdomen Limited IMPRESSION: Findings suggestive of a 1.8 cm x 1.8 cm x 1.4 cm hemangioma in the medial aspect of the right lobe of the liver adjacent to the falciform ligament. Electronically Signed: Eugenio Weathers MD at 10:49 EDT ,
== END | disposition home or self-care (01) ==
LOC: US 08:40
PROVIDERS: Referring Provider Nurse Practitioner Adult Health; Visit Provider Nurse Practitioner Adult Health
DX: R11.2 Nausea with vomiting, unspecified (principal)
CPT/HCPCS: 76705

== ENCOUNTER → 2021-11-06 | Outpatient (CLI) | payer MEDICAID, SELFPAY ==
[2021-11-06 11:38] LABS: Anion Gap 4 (5-15); BUN 9 mg/dL (7-18); BUN/Creat Ratio 9.7 RATIO (10-20); Calcium,Total 9.1 mg/dL (8.5-10.1); Chloride 112 mmol/L (98-107); Creatinine, Serum 0.92 mg/dL (0.55-1.02); EST Glomerular Filtration Rate 82 mL/min (>60); Est Glom Filt Rate - Afr Amer 99 mL/min (>60); Glucose 104 mg/dL (74-106); Potassium 3.6 mmol/L (3.5-5.1); Sodium Level 138 mmol/L (136-145)
[2021-11-06 13:56] LABS: Bacteria 0 SEEN /hpf (None Seen); Mucous, Urine 0 SEEN /hpf (<or=2+); Red Blood Cells-Urine 0 SEEN /hpf (0-5); Squamous Epithelial Cells - UA 0 SEEN /hpf (5-10); White Blood Cells 0 SEEN /hpf (0-5)
[2021-11-06 14:54] LABS: Color, Urine Yellow (Yellow); Glucose, Dipstick Normal (Normal); Ketone-Dipstick Negative (Negative); Leukocyte Esterase-Dipstick 25 /ul (Negative); Nitrite-Dipstick Negative (Negative); Occult Blood-Urine Negative /ul (Negative); Protein-Dipstick Negative (Negative); Specific Gravity, Urine 1.005 (1.002-1.030); Urine Bilirubin Dipstick Negative (Negative); Urine Clarity Clear (Clear); Urine Urobilinogen Normal (Normal)
[2021-11-07 17:10] LABS: H. Pylori Antibody (IgG) 0.17 (0.00-0.79)
== END | disposition home or self-care (01) ==
DX: K29.70 Gastritis, unspecified, without bleeding (principal); R30.0 Dysuria
CPT/HCPCS: 36415; 80048; 81001; 86677; 87086; 87088

== ENCOUNTER 2021-11-07 15:48 | Emergency (ER) | payer MEDICAID, SELFPAY ==
[2021-11-07 15:49] VITALS: BP 127/75; PULSE 93; RESP 16; TEMP 36.9; O2SAT 97; BMI 25.7
--- NOTE | 2021-11-07 16:14 | EX.ED.DYSGE1 ---
HPI History of Present Illness Chief Complaint: Chest Pain Informant: patient Onset/Context/Timing Onset: Hours (1) Context: Sudden Onset Timing: Continuous Quality: Stabbing, pressure Location: Left chest Worsened by: Nothing Relieved by: Nothing Narrative Narrative: Patient presents with chest pain, shakiness, fatigue, shortness of breath, and sore throat that have been getting worse over the last hour. Patient states that she has stabbing pain in her left lower chest and pressure in her left upper chest. Patient states it has been constant. Patient states nothing makes it better nothing makes it worse. Patient does admit to some diaphoresis when the pain began. Patient admits to some shortness of breath and lightheadedness. Patient also admits to some palpitations. Patient denies any nausea or vomiting. Patient denies any cough or fevers. Patient is a smoker but denies any other cardiac or PE risk factors. [facility] Medical History (Updated 11/07/21 @ 19:[address] Alexei Chakraborty, DO) Anxiety Asthma Depression Diarrhea Endometriosis GERD (gastroesophageal reflux disease) Migraine Pelvic pain Pott disease PTSD (post-traumatic stress disorder) Thyroid disease Upper abdominal pain Home Medications albuterol sulfate 90 mcg/actuation aerosol inhaler 2 puff inhalation PRN PRN Wheezing 06/14/21 [History Last Taken Unknown] epinephrine 0.3 mg/0.3 mL injection, auto-injector 1 mg IM PRN PRN Allergic Reaction 06/14/21 [History Last Taken Unknown] prazosin 1 mg capsule 1 mg PO BID 06/14/21 [History Last Taken Unknown] aripiprazole 2 mg tablet 2 mg PO QHS 07/31/21 [History Last Taken Unknown] dicyclomine 10 mg capsule 20 mg PO TIDAC #20 CAPSULES 10/06/21 [Rx Last Taken Unknown] fluoxetine 10 mg capsule 3 cap PO DAILY 10/06/21 [History Last Taken Unknown] gabapentin 100 mg capsule 1 cap PO TID PRN Pain 10/06/21 [History Last Taken Unknown] ondansetron 4 mg disintegrating tablet 4 mg PO Q8H PRN PRN Nausea #10 tabs 10/06/21 [Rx Last Taken Unknown] topiramate 25 mg tablet 1 tab PO TID 10/06/21 [History Last Taken Unknown] metoclopramide HCl 10 mg tablet 10 mg PO 4X/DAY PRN Headache #20 tabs 10/20/21 [Rx Last Taken Unknown] omeprazole 20 mg capsule,delayed release 20 mg PO DAILY 10/25/21 [History Last Taken Unknown] simethicone 80 mg chewable tablet (Gas Relief (simethicone)) 80 mg PO BID-QID PRN Pain 10/25/21 [History Last Taken Unknown] metoclopramide HCl 10 mg tablet (Reglan) 10 mg PO Q6H PRN nausea and vomiting #14 tabs 11/01/21 [Rx Last Taken Unknown] sucralfate 100 mg/mL oral suspension (Carafate) 10 ml PO BID PRN epigastric pain #400 mL 11/01/21 [Rx Last Taken Unknown] Allergy/AdvReac Type Severity Reaction Status Date / Time sertraline [From Zoloft] Allergy Anaphylaxis Verified 11/01/21 14:26 silicone Allergy Rash Verified 11/01/21 14:26 lactose AdvReac Upset Verified 11/01/21 14:26 Stomach NASAL SPRAY Allergy Hives Uncoded 11/01/21 14:26 Family History Father Anxiety Depression Asthma Thyroid disorder Mother Asthma Diabetes Anxiety Depression Brother Oleksandr-Danlos syndrome Surgical History Hx of laparoscopy Social History household members: none Smoking Status: Current every day smoker tobacco type: e-cigarettes alcohol intake: current substance use type: does not use ROS ROS ED Constitutional Constitutional ED: Denies chills or fever(s) Eyes Eyes: Reports blurry vision; Denies diplopia ENT ENT ED: Reports sore throat; Denies rhinorrhea Cardiovascular Cardiovascular: Reports chest pain, palpitations and racing heartbeat Respiratory/Chest Respiratory/Chest: Reports dyspnea; Denies cough Gastrointestinal Gastrointestinal: Reports nausea; Denies abdominal pain or vomiting Genitourinary Genitourinary ED: Reports hematuria; Denies dysuria Musculoskeletal Musculoskeletal: Reports back pain; Denies neck pain Integumentary Denies abscess or rash Neurologic Neurologic: Reports headache(s); Denies weakness Allergic/Immunologic Allergic/Immunologic ED: Denies mouth swelling or urticaria EXAM Physical Exam Const Vital Signs: 11/07/21 15:49 11/07/21 16:28 11/07/21 16:47 Temperature 98.4 F Temperature Source Temporal Pulse Rate 93 Respiratory Rate 16 Respiratory Effort Normal Respiratory Pattern Blood Pressure 127/75 H Blood Pressure Mean 92 Pulse Ox 97 Oxygen Delivery Method Room Air Room Air 11/07/21 18:00 11/07/21 20:20 11/07/21 20:20 Temperature Temperature Source Pulse Rate 68 68 Respiratory Rate 36 H 18 26 H Respiratory Effort Normal Short of Breath Respiratory Pattern Normal Tachypnea Blood Pressure 111/75 Blood Pressure Mean 87 Pulse Ox 100 99 Oxygen Delivery Method Room Air Room Air Positive well nourished and well developed General Appearance ED: well developed and NAD HEENT normocephalic and atraumatic Eyes PERRL and EOMs intact bilaterally Neck supple and no JVD Chest Wall Chest Narrative: There is tenderness over the left chest wall. There is no bony crepitance or step-off. There is no edema or ecchymosis. Resp normal respiratory effort and clear to auscultation bilaterally Effort and Inspection: Negative for respiratory distress Cardio regular rate, regular rhythm and no murmurs GI normal to inspection, nondistended, normoactive bowel sounds, soft to palpation, non-tender and non-distended Extremity normal to inspection General Extremety ED: Negative for edema or tenderness General Extremity: Negative for edema Neuro oriented x3, CN's II-XII intact bilaterally and no sensory deficits noted Sensorium / Orientation: awake and alert Motor Exam: strength 5/5 throughout Psych mental status grossly normal MDM MDM MDM Narrative Medical decision making narrative: EKG was obtained. On my interpretation, it showed a normal sinus rhythm with a rate of 74. MD interval, QRS interval, and QTc intervals were all normal. Jackson was normal. There are no acute ST or T wave changes. Portable 1 view chest x-ray was obtained. On my interpretation, lung dela cruz are clear. There is normal cardiac silhouette. Bony thorax is normal. There is no acute process noted. Radiologist also interpreted the x-ray and agrees. CBC was within normal limits. Basic metabolic profile was within normal limits. High-sensitivity troponin was normal. While here in the emergency department, the patient stated she was having difficulty breathing. Patient was given a DuoNeb aerosol. Patient had minimal improvement with this. Because of this, CTA of the chest was ordered. 2-hour repeat high-sensitivity troponin was normal. Patient has a HEART score of 1. Patient was advised that this is low risk for acute cardiac event. Patient was advised of her findings. Results of the CTA of the chest are pending. Patient informed the nurse that she had a family emergency and had to leave the emergency department. Patient was advised that this could still be a pulmonary embolism and that we do not have the test results back for this. Patient was advised that her vital signs are stable at this time and that if there is a pulmonary embolism she would need to return to the emergency department or follow-up with her primary care physician to be started on anticoagulants. Patient will be discharged. Patient was instructed to follow-up in 1 to 2 days with her primary care physician. Patient was instructed return if worse in any way. Patient understood and was agreeable with the plan. All questions were answered. Lab Data Attestation: I reviewed the patient's lab results. Labs: Laboratory Results - last 24 hr 11/07/21 11/07/21 11/07/21 16:37 16:37 18:51 WBC 6.5 RBC 4.86 Hgb 12.4 Hct 37.4 MCV 77.0 L MCH 25.5 L MCHC 33.2 RDW Std Deviation 42.5 RDW Coeff of Anoop 15.3 H Plt Count 371 MPV 9.0 Immature Gran % (Auto) 0.300 Neut % (Auto) 64.0 Lymph % (Auto) 27.5 Coos % (Auto) 6.8 Eos % (Auto) 1.1 Baso % (Auto) 0.3 Absolute Neuts (auto) 4.2 Absolute Lymphs (auto) 1.78 Nucleated RBC % 0 Sodium 140 Potassium 3.4 L Chloride 113 H Carbon Dioxide 22.0 Anion Gap 5 BUN 9 Creatinine 0.85 Estim Creat Clear Calc 91.17 Est GFR (MDRD) Af Amer 109 Est GFR (MDRD) Non-Af 90 BUN/Creatinine Ratio 10.6 Glucose 101 Calcium 8.8 Troponin I High Sens < 3 L < 3 L Radiography Chest X-Ray - ED: 1 View, Read by ED Physician, Read by Radiologist, Normal and No Acute Disease Diagnostic Testing: Clinical Impression(s) from Imaging Studies Chest X-Ray 11/07/21 17:00 IMPRESSION: Normal x-ray examination of the chest. Electronically Signed: Anival Conway MD at 18:05 EDT Reading Location ID and State: [facility] / [place] , Service support , EKG Initial EKG: Attestation: I personally reviewed and interpreted this EKG as follows: Interpretation: Sinus Rhythm (74) and No Acute Injury Pattern Prior EKG tracings: available for review Prior: Unchanged (10/20/2021) Discharge Plan Triage Chief Complaint: Chest Pain ED Provider: Alexei Chakraborty Dx/Rx/DC Orders Clinical Impression: Chest pain of uncertain etiology, Dyspnea Instructions: ED Chest Pain, Uncertain Cause Prescriptions: No Action omeprazole 20 mg capsule,delayed release(DR/EC) 20 mg PO DAILY simethicone [Gas Relief (simethicone)] 80 mg tablet,chewable 80 mg PO BID-QID PRN (Reason: Pain) prazosin 1 mg capsule 1 mg PO BID Label Comments: take 1 capsule by mouth at bedtime epinephrine 0.3 mg/0.3 mL auto-injector 1 mg IM PRN PRN (Reason: Allergic Reaction) Label Comments: INJECT INTO THE MUSCLE NEEDED FOR ANAPHYLAXIS REACTION albuterol sulfate 90 mcg/actuation HFA aerosol inhaler 2 puff INHALATION PRN PRN (Reason: Wheezing) Label Comments: inhale 2 puffs by mouth and INTO THE LUNGS every 4 hours if neede... (REFER TO PRESCRIPTION NOTES). aripiprazole 2 mg tablet 2 mg PO QHS topiramate 25 mg tablet 1 tab PO TID Label Comments: take 1 tablet by mouth once daily at bedtime for 1 week then INCR... (REFER TO PRESCRIPTION NOTES). fluoxetine 10 mg capsule 3 cap PO DAILY gabapentin 100 mg capsule 1 cap PO TID PRN (Reason: Pain) Label Comments: take 1 capsule by mouth three times a day if needed for headache for up to 90 DAYS ondansetron [ondansetron] 4 mg tablet,disintegrating 4 mg PO Q8H PRN PRN (Reason: Nausea) Qty: 10 0RF dicyclomine 10 mg capsule 20 mg PO TIDAC Qty: 20 0RF metoclopramide HCl [metoclopramide HCl] 10 MG tablet 10 mg PO 4X/DAY PRN (Reason: Headache) Qty: 20 0RF sucralfate [Carafate] 100 mg/mL suspension 10 ml PO BID PRN (Reason: epigastric pain) Qty: 400 0RF metoclopramide HCl [Reglan] 10 mg tablet 10 mg PO Q6H PRN (Reason: nausea and vomiting) Qty: 14 0RF Primary Care Provider: [facility] Sury Queen Referrals: [facility] Bernice,Sury Catherine [Primary Care Provider] - 3-5 Days Disposition Disposition: Home, Self Care
--- NOTE | 2021-11-07 16:23 | EKG12_ITS ---
Test Reason : Blood Pressure : / mmHG Vent. Rate : 074 BPM Atrial Rate : 074 BPM P-R Int : 138 ms QRS Dur : 070 ms QT Int : 390 ms P-R-T Axes : 048 036 005 degrees QTc Int : 432 ms Normal sinus rhythm Normal ECG Confirmed by SALLY COOL, HUBER ([id number]), editor dictionary BRITTA SHI ([id number]) on 11/09/2021 12:59:58 PM Referred By: Adarsh Confirmed By:HUBER ZAVALA MD
[2021-11-07] MEDS: Aspirin 81 MG TAB.CHEW 324 MG PO (16:46)
--- NOTE | 2021-11-07 17:00 | RAD_ITS ---
STUDY: X-RAY CHEST REASON FOR EXAM: Female, 21 years old. chest pain TECHNIQUE: AP portable COMPARISON: None. FINDINGS: The lungs are clear and expanded. There is no demonstrated pleural abnormality. Normal size heart. Normal mediastinum and dennis. Normal visualized pulmonary arteries. Normal visualized aortic arch and descending thoracic aorta. Normal visualized thoracic spine. Normal visualized ribs, clavicles, and shoulders. There is no demonstrated abnormality of the visualized soft tissue structures of the upper abdomen. RAD/Chest 1 View (Portable) IMPRESSION: Normal x-ray examination of the chest. Electronically Signed: Anival Conway MD at 18:05 EDT ,
[2021-11-07 17:01] LABS: Absolute Lymphocyte Count 1.78 X10^3/uL (0.83-4.51); Absolute Neutrophil Count 4.2 X10^3/uL (2.0-7.7); Basophil# 0.02 X10^3/uL; Basophil% 0.3 % (0-1); Eosinophil# 0.07 X10^3/uL; Eosinophils% 1.1 % (0-5); Hematocrit 37.4 % (37-47); Hemoglobin 12.4 g/dL (12.0-15.0); Lymphocyte # 1.78 X10^3/ul (0.83-4.51); Lymphocyte % 27.5 % (19-41); Mean Corp Hgb Conc 33.2 g/dL (32-36); Mean Corpuscular Hgb 25.5 pg (27.0-32.0); Monocyte# 0.44 X10^3/uL; Monocyte% 6.8 % (0-10); NRBC Flagged by Analyzer 0 % (0-5); Neutrophil # 4.15 X10^3/uL (2.7-7.7); Platelet Count 371 K/mm3 (150-450); RBC Distribution Width CV 15.3 % (11.6-14.6); RBC Distribution Width SD 42.5 fl (35.1-43.9); Red Blood Count 4.86 M/mm3 (4.2-5.4); White Blood Count 6.5 K/mm3 (4.4-11.0)
[2021-11-07 17:14] LABS: Anion Gap 5 (5-15); BUN 9 mg/dL (7-18); BUN/Creat Ratio 10.6 RATIO (10-20); Calcium,Total 8.8 mg/dL (8.5-10.1); Chloride 113 mmol/L (98-107); Creatinine, Serum 0.85 mg/dL (0.55-1.02); EST Glomerular Filtration Rate 90 mL/min (>60); Est Glom Filt Rate - Afr Amer 109 mL/min (>60); Estimated Creatinine Clearance 91.17 ml/min; Glucose 101 mg/dL (74-106); Potassium 3.4 mmol/L (3.5-5.1); Sodium Level 140 mmol/L (136-145); Troponin-I HS (w/2H Reflex) < 3 pg/mL (3.0-54.0)
[2021-11-07 18:00] VITALS: BP 111/75; PULSE 68; RESP 36; O2SAT 100
[2021-11-07 18:48] LABS: Reflex Troponin-HS? (from REC) Y
[2021-11-07 19:49] LABS: Troponin-I HS < 3 pg/mL (3.0-54.0)
[2021-11-07 20:20] VITALS: PULSE 68; RESP 18; RESP 26; O2SAT 99
[2021-11-07] MEDS: Ipratropium/Albuterol Sulfate 3 ML AMPUL.NEB INHALATION (20:20)
--- NOTE | 2021-11-07 20:43 | CT_ITS ---
STUDY: CTA CHEST REASON FOR EXAM: Female, 21 years old. Dyspnea RADIATION DOSAGE (If Supplied By Facility): CTDIvol = ( 4.62 ) mGy, DLP = ( 160.15 ) mGycm TECHNIQUE: The examination was performed with the intravenous administration of IV 100mL Isovue-[id number]. Post-processing of the angiographic images was performed, with multiplanar reformation and 3D reconstruction. Individualized dose optimization techniques were used for this CT. COMPARISON: 03/20/2018 FINDINGS: Normal enhancement of the main pulmonary artery and right and left pulmonary arteries. Normal enhancement of the bilateral peripheral pulmonary arteries. There is no demonstrated pulmonary embolism. Normal thoracic aorta and visualized great vessels. There is no demonstrated aortic dissection. Normal heart and pericardium. Normal mediastinum. Normal hilar regions. Normal visualized trachea and bronchi. The lungs are well expanded. Normal pulmonary parenchyma. Normal pleura. Normal chest wall structures. Normal osseous structures. Normal visualized upper abdomen. CT/CTA Chest W/WO Contrast IMPRESSION: Normal CTA chest examination, without a demonstrated pulmonary embolism or arterial dissection. Electronically Signed: Anival Conway MD at 21:39 EDT ,
[2021-11-07 21:35] VITALS: BP 116/67; PULSE 81; RESP 18; TEMP 36.6; O2SAT 100
[2021-11-07 21:38] VITALS: BP 116/61; PULSE 80; RESP 15; O2SAT 100
== END 2021-11-07 21:39 | disposition home or self-care (01) ==
PROVIDERS: Emergency Provider Emergency Medicine; Visit Provider Emergency Medicine
DX: R07.9 Chest pain, unspecified (principal); F17.210 Nicotine dependence, cigarettes, uncomplicated; J02.9 Acute pharyngitis, unspecified; R06.00 Dyspnea, unspecified
CPT/HCPCS: G0463; 71045; 71275; 80048; 84484; 85025; 93005; 94640; 99251; 99285; Q9967; A4216

== ENCOUNTER 2021-11-14 03:16 | Emergency (ER) | payer MEDICAID, SELFPAY ==
[2021-11-14 03:16] VITALS: BP 157/89; PULSE 90; RESP 20; TEMP 36.6; O2SAT 99; BMI 27.5
--- NOTE | 2021-11-14 03:20 | EKG12_ITS ---
Test Reason : CP Blood Pressure : / mmHG Vent. Rate : 089 BPM Atrial Rate : 089 BPM P-R Int : 128 ms QRS Dur : 070 ms QT Int : 368 ms P-R-T Axes : 060 049 026 degrees QTc Int : 447 ms Normal sinus rhythm Nonspecific ST abnormality Abnormal ECG Confirmed by SALLY COOL, HUBER ([id number]), digital editor BRITTA SHI ([id number]) on 11/14/2021 1:14:42 PM Referred By: LONA Confirmed By:HUBER ZAVALA MD
[2021-11-14 03:23] VITALS: O2SAT 99
--- NOTE | 2021-11-14 03:29 | EDS_ITS ---
HPI History of Present Illness Chief Complaint: Chest Pain Informant: patient Onset/Context/Timing Onset: Today Activity at onset: gradual Timing: Intermittent Quality: Positive for Pain and Stabbing Location: Left Parasternal and Right Chest Current Severity: Mild Maximum Severity: Mild Worsened By: Nothing Relieved By: Nothing Associated Symptoms: Positive for Nausea and Vomiting Narrative Narrative: 21-year-old female history of anxiety and depression and PTSD. Also POTS. Patient states that today her blood pressure was elevated at home. She felt dizzy. And as she became more anxious she developed chest discomfort. She was seen here about a week ago and extensive work-up that time including a CTA of her chest all of which was negative. She denies any hemoptysis. No fever. No leg pain or swelling. Prior Similar Symptoms: Yes Recent Illness/Hospitalization: No CVD Risk Factors: Negative for Hypertension, Diabetes or Hypercholesterolemia PE Risk Factors: Negative for Recent Travel/Surgery, Recent Immobilization, Prior DVT or PE, Cancer or OCP + Smoking + >/=35 TAD Risk Factors: Negative for Marfan's Syndrome [facility] Medical History Anxiety Asthma Depression Diarrhea Endometriosis GERD (gastroesophageal reflux disease) Migraine Pelvic pain Pott disease PTSD (post-traumatic stress disorder) Thyroid disease Upper abdominal pain Home Medications albuterol sulfate 90 mcg/actuation aerosol inhaler 2 puff inhalation PRN PRN Wheezing 06/14/21 [History Last Taken Unknown] epinephrine 0.3 mg/0.3 mL injection, auto-injector 1 mg IM PRN PRN Allergic Reaction 06/14/21 [History Last Taken Unknown] prazosin 1 mg capsule 1 mg PO BID 06/14/21 [History Last Taken Unknown] aripiprazole 2 mg tablet 2 mg PO QHS 07/31/21 [History Last Taken Unknown] dicyclomine 10 mg capsule 20 mg PO TIDAC #20 CAPSULES 10/06/21 [Rx Last Taken Unknown] fluoxetine 10 mg capsule 3 cap PO DAILY 10/06/21 [History Last Taken Unknown] gabapentin 100 mg capsule 1 cap PO TID PRN Pain 10/06/21 [History Last Taken Unknown] ondansetron 4 mg disintegrating tablet 4 mg PO Q8H PRN PRN Nausea #10 tabs [Rx Last Taken Unknown] topiramate 25 mg tablet 1 tab PO TID 10/06/21 [History Last Taken Unknown] metoclopramide HCl 10 mg tablet 10 mg PO 4X/DAY PRN Headache #20 tabs 10/20/21 [Rx Last Taken Unknown] omeprazole 20 mg capsule,delayed release 20 mg PO DAILY 10/25/21 [History Last Taken Unknown] simethicone 80 mg chewable tablet (Gas Relief (simethicone)) 80 mg PO BID-QID PRN Pain 10/25/21 [History Last Taken Unknown] metoclopramide HCl 10 mg tablet (Reglan) 10 mg PO Q6H PRN nausea and vomiting #14 tabs 11/01/21 [Rx Last Taken Unknown] sucralfate 100 mg/mL oral suspension (Carafate) 10 ml PO BID PRN epigastric pain #400 mL 11/01/21 [Rx Last Taken Unknown] Allergy/AdvReac Type Severity Reaction Status Date / Time sertraline [From Zoloft] Allergy Anaphylaxis Verified 11/14/21 03:19 silicone Allergy Rash Verified 11/14/21 03:19 lactose AdvReac Upset Verified 11/14/21 03:19 Stomach NASAL SPRAY Allergy Hives Uncoded 11/14/21 03:19 Family History Father Anxiety Depression Asthma Thyroid disorder Mother Asthma Diabetes Anxiety Depression Brother Oleksandr-Danlos syndrome Surgical History Hx of laparoscopy Social History household members: none Smoking Status: Current every day smoker tobacco type: e-cigarettes alcohol intake: current substance use type: does not use ROS ROS ED ROS Narrative Anxiety. Nausea and vomiting x1. Review of Systems ROS Unobtainable: Denies due to encephalopathy Constitutional Constitutional ED: Denies chills or fever(s) Eyes Eyes: Reports none ENT ENT ED: Denies ear pain Cardiovascular Cardiovascular: Reports chest pain and palpitations Respiratory/Chest Respiratory/Chest: Denies cough or dyspnea Gastrointestinal Gastrointestinal: Reports nausea and vomiting; Denies abdominal pain Genitourinary Genitourinary ED: Denies dysuria Musculoskeletal Musculoskeletal: Denies arthralgias Integumentary Denies abscess Neurologic Neurologic: Denies headache(s) Psychiatric Psychiatric: Denies anxiety Endocrine Endocrinology: Denies cold intolerance Hematologic/Lymphatic Hematologic/Lymphatic: Denies easy bleeding Allergic/Immunologic Allergic/Immunologic ED: Denies mouth swelling EXAM Physical Exam Narrative Exam Narrative: 21-year-old female vital signs stable afebrile. Pulse ox 99% on room air no signs hypoxia. She does not look septic or toxic. H EENT exam unremarkable. Neck nontender no JVD. No lymphadenopathy. Lungs clear to auscultation bilaterally. Heart regular rhythm rate about 90 no murmur. Abdomen soft nontender normal bowel sounds no peritoneal signs. Chest were nontender. Moving all 4 extremities. 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 Normal dorsi plantarflexion. Calves are nontender without edema or cords. Neurologically she is awake and alert with no focal motor deficits. Const Vital Signs: 11/14/21 03:16 11/14/21 03:23 Temperature 97.9 F Temperature Source Temporal Pulse Rate 90 Respiratory Rate 20 H Respiratory Effort Short of Breath Respiratory Pattern Tachypnea Blood Pressure 157/89 H Blood Pressure Mean 111 Pulse Ox 99 Oxygen Delivery Method Room Air Room Air Positive well nourished and well developed; Negative for obese, cachectic, contractures or unkempt General Appearance ED: well developed and NAD; Negative for unkempt, cachectic, contractures or pallor Nutritional Appearance: Negative for cachectic or obese HEENT Reports moist mucous membranes normocephalic and atraumatic; Negative for trauma or tenderness Eyes PERRL and EOMs intact bilaterally General Eye ED: Negative for pale conjunctiva Neck no lymphadenopathy and supple General: Negative for tenderness Chest Wall inspection of chest normal and palpation of chest normal Chest: Negative for tenderness Resp normal respiratory effort and clear to auscultation bilaterally Effort and Inspection: Negative for respiratory distress Auscultation: Negative for rales, rhonchi or wheezes Cardio regular rate, regular rhythm, S1 normal heart sound, S2 normal heart sound and no murmurs Rate: Negative for bradycardia Rhythm: Negative for abnormal rhythm Peripheral Pulses: pulses 2+ throughout GI normal to inspection, nondistended, normoactive bowel sounds, soft to palpation, non-tender, non-distended and no masses Palpation: Negative for mass Back/Spine no CVA tenderness and no thoracic nor lumbar tenderness Extremity normal to inspection General Extremety ED: Negative for edema or pulses abnormal General Extremity: Negative for edema or pulses abnormal Neuro oriented x3 and CN's II-XII intact bilaterally Sensorium / Orientation: awake, alert, oriented to person, oriented to place and oriented to time; Negative for confused, lethargic or stuporous Motor Exam: strength 5/5 throughout Psych mental status grossly normal Appearance: Negative for unkempt Attitude: No agitated Mood & Affect: Negative for depressed Skin no rashes or lesions noted and no wounds General Skin Exam: Negative for jaundice or pallor Rashes: No rashes noted Trauma: Negative for abrasion MDM MDM MDM Narrative Medical decision making narrative: 21-year-old female has a history of PTSD anxiety and depression. Was seen in the emergency department a week ago and extensive work-up for chest pain at that time including a CTA. All of which was negative. Tonight felt anxious and her blood pressure was elevated. She developed other symptoms and came in to be evaluated. Her exam is benign. Her EKG is normal. I do not think she needs further evaluation tonight. She will be observed and is doing well she will be discharged home. I did review her prior work-up. I offered the patient some antianxiety medications but she did not want anything because she has to drive later this morning Repeat exam patient is doing well at 4:46 AM she is feeling improved. Nausea is resolved after the Zofran. Her pain is resolved. Her vital signs are stable. She clinically appears improved and more relaxed. She will be discharged to home.. Rhythm Strip Rhythm Strip: Sinus Rhythm Rate: 89 Ectopy: None EKG Initial EKG: Attestation: I personally reviewed and interpreted this EKG as follows: Interpretation: Sinus Rhythm and No Acute Injury Pattern Comments: Normal sinus rhythm rate 89 no acute signs of [place] or ischemia. Discharge Plan Triage Chief Complaint: Chest Pain Other Complaint: Shortness of Breath ED Provider: Ricco Bridges Dx/Rx/DC Orders Clinical Impression: Chest pain, Anxiety, History of post traumatic stress disorder Instructions: ED Chest Pain, Uncertain Cause Prescriptions: No Action omeprazole 20 mg capsule,delayed release(DR/EC) 20 mg PO DAILY simethicone [Gas Relief (simethicone)] 80 mg tablet,chewable 80 mg PO BID-QID PRN (Reason: Pain) prazosin 1 mg capsule 1 mg PO BID Label Comments: take 1 capsule by mouth at bedtime epinephrine 0.3 mg/0.3 mL auto-injector 1 mg IM PRN PRN (Reason: Allergic Reaction) Label Comments: INJECT INTO THE MUSCLE NEEDED FOR ANAPHYLAXIS REACTION albuterol sulfate 90 mcg/actuation HFA aerosol inhaler 2 puff INHALATION PRN PRN (Reason: Wheezing) Label Comments: inhale 2 puffs by mouth and INTO THE LUNGS every 4 hours if neede... (REFER TO PRESCRIPTION NOTES). aripiprazole 2 mg tablet 2 mg PO QHS topiramate 25 mg tablet 1 tab PO TID Label Comments: take 1 tablet by mouth once daily at bedtime for 1 week then INCR... (REFER TO PRESCRIPTION NOTES). fluoxetine 10 mg capsule 3 cap PO DAILY gabapentin 100 mg capsule 1 cap PO TID PRN (Reason: Pain) Label Comments: take 1 capsule by mouth three times a day if needed for headache for up to 90 DAYS ondansetron [ondansetron] 4 mg tablet,disintegrating 4 mg PO Q8H PRN PRN (Reason: Nausea) Qty: 10 0RF dicyclomine 10 mg capsule 20 mg PO TIDAC Qty: 20 0RF metoclopramide HCl [metoclopramide HCl] 10 MG tablet 10 mg PO 4X/DAY PRN (Reason: Headache) Qty: 20 0RF sucralfate [Carafate] 100 mg/mL suspension 10 ml PO BID PRN (Reason: epigastric pain) Qty: 400 0RF metoclopramide HCl [Reglan] 10 mg tablet 10 mg PO Q6H PRN (Reason: nausea and vomiting) Qty: 14 0RF Primary Care Provider: [facility] Sury Queen Referrals: [facility] Sury Queen [Primary Care Provider] - 3-5 Days if not improving Activity Restrictions/Additional Instructions: Your exam is normal. This may be secondary to anxiety. Follow-up with your primary care provider as needed. Disposition Disposition: Home, Self Care
[2021-11-14] MEDS: Ondansetron 4 MG/2 ML Vial IV (03:56)
[2021-11-14 04:50] VITALS: PULSE 75; RESP 16; O2SAT 100
== END 2021-11-14 04:58 | disposition home or self-care (01) ==
PROVIDERS: Emergency Provider Emergency Medicine; Visit Provider Emergency Medicine
DX: R07.9 Chest pain, unspecified (principal); F41.9 Anxiety disorder, unspecified; F17.290 Nicotine dependence, other tobacco product, uncomplicated
CPT/HCPCS: 93005; 96374; 99283; J7030; A4216; J2405

== ENCOUNTER → 2021-11-22 | Outpatient (CLI) | payer MEDICAID, SELFPAY | END | disposition home or self-care (01) | LOC: LABSPEC 15:08 | PROVIDERS: Visit Provider Otolaryngology | DX: J02.9 Acute pharyngitis, unspecified (principal) | CPT/HCPCS: 87070 ==

== ENCOUNTER 2021-11-26 14:05 | Emergency (ER) | payer MEDICAID, SELFPAY ==
[2021-11-26 14:06] VITALS: BP 141/82; PULSE 94; RESP 14; TEMP 36.2; O2SAT 100; BMI 27.3
[2021-11-26 14:48] VITALS: O2SAT 99
--- NOTE | 2021-11-26 15:26 | EKG12_ITS ---
Test Reason : CP Blood Pressure : / mmHG Vent. Rate : 068 BPM Atrial Rate : 068 BPM P-R Int : 138 ms QRS Dur : 074 ms QT Int : 402 ms P-R-T Axes : 055 043 018 degrees QTc Int : 427 ms Normal sinus rhythm Normal ECG Confirmed by SALLY COOL, HUBER ([id number]), department editor BRITTA SHI ([id number]) on 11/27/2021 1:59:51 PM Referred By: Confirmed By:HUBER ZAVALA MD
--- NOTE | 2021-11-26 15:28 | EDS_ITS ---
HPI History of Present Illness Chief Complaint: Shortness of Breath Detail of Chief Complaint: Chest pain, shortness of breath Informant: patient Onset/Context/Timing Onset: Days (3 days) Current Severity: Mild Maximum Severity: Moderate Narrative Narrative: Patient presents with 3-day history of chest pain. She describes a chest heaviness with occasional sharp stabbing pain. She does feel short of breath. No significant cough. She states she did have some lower extremity swelling. She denies history of blood clots. She states she did take a home COVID test that was negative. [facility] Medical History Anxiety Asthma Depression Diarrhea Endometriosis GERD (gastroesophageal reflux disease) Migraine Pelvic pain Pott disease PTSD (post-traumatic stress disorder) Thyroid disease Upper abdominal pain Home Medications albuterol sulfate 90 mcg/actuation aerosol inhaler 2 puff inhalation PRN PRN Wheezing 06/14/21 [History Last Taken Unknown] epinephrine 0.3 mg/0.3 mL injection, auto-injector 1 mg IM PRN PRN Allergic Reaction 06/14/21 [History Last Taken Unknown] prazosin 1 mg capsule 1 mg PO BID 06/14/21 [History Last Taken Unknown] aripiprazole 2 mg tablet 2 mg PO QHS 07/31/21 [History Last Taken Unknown] dicyclomine 10 mg capsule 20 mg PO TIDAC #20 CAPSULES 10/06/21 [Rx Last Taken Unknown] fluoxetine 10 mg capsule 3 cap PO DAILY 10/06/21 [History Last Taken Unknown] ondansetron 4 mg disintegrating tablet 4 mg PO Q8H PRN PRN Nausea #10 tabs 10/06/21 [Rx Last Taken Unknown] topiramate 25 mg tablet 1 tab PO TID 10/06/21 [History Last Taken Unknown] omeprazole 20 mg capsule,delayed release 20 mg PO DAILY 10/25/21 [History Last Taken Unknown] sucralfate 100 mg/mL oral suspension (Carafate) 10 ml PO BID PRN epigastric pain #400 mL 11/01/21 [Rx Last Taken Unknown] potassium chloride 20 mEq tablet,extended release 20 meq PO BID #6 tabs 11/26/21 [Rx Last Taken Unknown] Allergy/AdvReac Type Severity Reaction Status Date / Time gabapentin Allergy Rash Verified 08/14/22 15:14 sertraline [From Zoloft] Allergy Anaphylaxis Verified 11/26/21 14:06 silicone Allergy Rash Verified 11/26/21 14:06 lactose AdvReac Upset Verified 11/26/21 14:06 Stomach NASAL SPRAY Allergy Hives Uncoded 11/26/21 14:06 Family History Father Anxiety Depression Asthma Thyroid disorder Mother Asthma Diabetes Anxiety Depression Brother Oleksandr-Danlos syndrome Surgical History Hx of laparoscopy Social History household members: none Smoking Status: Current every day smoker tobacco type: e-cigarettes alcohol intake: current substance use type: does not use ROS ROS ED Constitutional Constitutional ED: Reports chills; Denies fever(s) Eyes Eyes: Denies change in vision or discharge from eye(s) ENT ENT ED: Denies discharge from eye(s), rhinorrhea or sore throat Cardiovascular Cardiovascular: Reports chest pain; Denies palpitations Respiratory/Chest Respiratory/Chest: Reports dyspnea; Denies cough Gastrointestinal Gastrointestinal: Denies abdominal pain, diarrhea, nausea or vomiting Genitourinary Genitourinary ED: Denies difficulty urinating or dysuria Musculoskeletal Musculoskeletal: Denies back pain or extremity pain Integumentary Denies Abrasions or rash Neurologic Neurologic: Denies headache(s) or weakness Psychiatric Psychiatric: Denies anxiety or depression Allergic/Immunologic Allergic/Immunologic ED: Denies lip swelling or urticaria EXAM Physical Exam Const Vital Signs: 11/26/21 14:06 11/26/21 14:48 11/26/21 16:19 Temperature 97.1 F L 97.5 F L Temperature Source Temporal Temporal Pulse Rate 94 77 Respiratory Rate 14 26 H Respiratory Effort Short of Breath Blood Pressure 141/82 H 109/72 Blood Pressure Mean 101 84 Pulse Ox 100 100 Oxygen Delivery Method Room Air Room Air Room Air 11/26/21 18:04 Temperature Temperature Source Pulse Rate 68 Respiratory Rate 18 Respiratory Effort Blood Pressure 114/77 Blood Pressure Mean 89 Pulse Ox 100 Oxygen Delivery Method Room Air Positive well nourished and well developed General Appearance ED: well developed HEENT Reports normocephalic and head/scalp atraumatic Eyes PERRL and EOMs intact bilaterally Neck supple Chest Wall inspection of chest normal and palpation of chest normal Resp normal respiratory effort and clear to auscultation bilaterally Cardio regular rate and regular rhythm GI normal to inspection, nondistended, normoactive bowel sounds Palpation: soft Back/Spine no CVA tenderness Extremity normal to inspection Neuro oriented x3 and no sensory deficits noted Sensorium / Orientation: alert Motor Exam: strength 5/5 throughout Psych mental status grossly normal Skin no rashes or lesions noted MDM MDM MDM Narrative Medical decision making narrative: Patient given Toradol and IV fluids. Lab work, EKG, chest x-ray obtained. COVID swab ordered. Lab Data Attestation: I reviewed the patient's lab results. Labs: Laboratory Results - last 24 hr 11/26/21 11/26/21 11/26/21 15:55 15:55 15:55 WBC 7.2 RBC 5.16 Hgb 12.9 Hct 39.7 MCV 76.9 L MCH 25.0 L MCHC 32.5 RDW Std Deviation 39.8 RDW Coeff of Anoop 14.2 Plt Count 399 MPV 8.7 Immature Gran % (Auto) 0.300 Neut % (Auto) 62.7 Lymph % (Auto) 28.6 Reynolds % (Auto) 7.7 Eos % (Auto) 0.6 Baso % (Auto) 0.1 Absolute Neuts (auto) 4.5 Absolute Lymphs (auto) 2.07 Nucleated RBC % 0 D-Dimer Quant (PE/DVT) < 0.27 L Sodium 141 Potassium 3.0 L Chloride 114 H Carbon Dioxide 21.0 Anion Gap 6 BUN 6 L Creatinine 0.78 Estim Creat Clear Calc 99.35 Est GFR (MDRD) Af Amer 120 Est GFR (MDRD) Non-Af 99 BUN/Creatinine Ratio 7.7 L Glucose 99 Calcium 9.1 Troponin I High Sens < 3 L Serum , Qual 11/26/21 15:55 WBC RBC Hgb Hct MCV MCH MCHC RDW Std Deviation RDW Coeff of Anoop Plt Count MPV Immature Gran % (Auto) Neut % (Auto) Lymph % (Auto) Reynolds % (Auto) Eos % (Auto) Baso % (Auto) Absolute Neuts (auto) Absolute Lymphs (auto) Nucleated RBC % D-Dimer Quant (PE/DVT) Sodium Potassium Chloride Carbon Dioxide Anion Gap BUN Creatinine Estim Creat Clear Calc Est GFR (MDRD) Af Amer Est GFR (MDRD) Non-Af BUN/Creatinine Ratio Glucose Calcium Troponin I High Sens Serum , Qual NEGATIVE Radiography Chest X-Ray - ED: 1 View, Read by ED Physician, Normal, Heart, Lungs and Mediastinum Diagnostic Testing: Clinical Impression(s) from Imaging Studies Chest X-Ray 11/26/21 15:36 IMPRESSION: No acute cardiopulmonary process identified. Electronically Signed: Anyi Hurtado MD at 15:52 EDT , EKG Initial EKG: Attestation: I personally reviewed and interpreted this EKG as follows: Interpretation: Sinus Rhythm (Sinus at 68 with no acute ischemia.) Treatment and Re-Evaluation Narrative: Repeat evaluation patient resting comfortably. EKG reveals no acute ischemia. Chest x-ray per my interpretation is unremarkable. CBC is normal. Chemistry studies significant for low potassium at 3.0. Troponin and D-dimer both negative. Patient will be treated with oral potassium replacement over the next 3 to 4 days. She voices understanding and agreement with plan. Return instructions provided. Discharge Plan Triage Chief Complaint: Shortness of Breath ED Provider: Sridevi Varela Dx/Rx/DC Orders Clinical Impression: Atypical chest pain, Hypokalemia Instructions: ED Chest Pain, Noncardiac, ED Hypokalemia Prescriptions: New potassium chloride 20 mEq tablet extended release 20 meq PO BID Qty: 6 0RF No Action omeprazole 20 mg capsule,delayed release(DR/EC) 20 mg PO DAILY prazosin 1 mg capsule 1 mg PO BID Label Comments: take 1 capsule by mouth at bedtime epinephrine 0.3 mg/0.3 mL auto-injector 1 mg IM PRN PRN (Reason: Allergic Reaction) Label Comments: INJECT INTO THE MUSCLE NEEDED FOR ANAPHYLAXIS REACTION albuterol sulfate 90 mcg/actuation HFA aerosol inhaler 2 puff INHALATION PRN PRN (Reason: Wheezing) Label Comments: inhale 2 puffs by mouth and INTO THE LUNGS every 4 hours if neede... (REFER TO PRESCRIPTION NOTES). aripiprazole 2 mg tablet 2 mg PO QHS topiramate 25 mg tablet 1 tab PO TID Label Comments: take 1 tablet by mouth once daily at bedtime for 1 week then INCR... (REFER TO PRESCRIPTION NOTES). fluoxetine 10 mg capsule 3 cap PO DAILY ondansetron [ondansetron] 4 mg tablet,disintegrating 4 mg PO Q8H PRN PRN (Reason: Nausea) Qty: 10 0RF dicyclomine 10 mg capsule 20 mg PO TIDAC Qty: 20 0RF sucralfate [Carafate] 100 mg/mL suspension 10 ml PO BID PRN (Reason: epigastric pain) Qty: 400 0RF Primary Care Provider: [facility] uSry Queen Referrals: [facility] Sury Queen [Primary Care Provider] - 1-2 Weeks Disposition Disposition: Home, Self Care
--- NOTE | 2021-11-26 15:36 | RAD_ITS ---
HISTORY: cp. TECHNIQUE: XR Chest 1 View. COMPARISON: 11/07/2021. FINDINGS: CARDIOMEDIASTINAL BORDERS: Cardiac silhouette within normal limits in size. Mediastinal contour unremarkable. LUNGS: Radiographically clear. PLEURA: No pleural effusion or pneumothorax seen. OSSEOUS STRUCTURES: Unremarkable. RAD/Chest 1 View (Portable) IMPRESSION: No acute cardiopulmonary process identified. Electronically Signed: Anyi Hurtado MD at 15:52 EDT ,
[2021-11-26] MEDS: 0.9% Normal Saline 1,000 ML 150 ML IV (15:53)
[2021-11-26] MEDS: Ketorolac 30 MG/ML Syringe IV (15:58)
[2021-11-26 15:59] LABS: Basophil% 0.1 % (0-1); Eosinophils% 0.6 % (0-5); Hematocrit 39.7 % (37-47); Hemoglobin 12.9 g/dL (12.0-15.0); Lymphocyte % 28.6 % (19-41); Mean Corp Hgb Conc 32.5 g/dL (32-36); Mean Corpuscular Volume 76.9 fL (81-99); Mean Platelet Vol. 8.7 fl (6.2-12.0); Monocyte% 7.7 % (0-10); Neutrophil % 62.7 % (47-70); Platelet Count 399 K/mm3 (150-450); RBC Distribution Width CV 14.2 % (11.6-14.6); RBC Distribution Width SD 39.8 fl (35.1-43.9); Red Blood Count 5.16 M/mm3 (4.2-5.4); White Blood Count 7.2 K/mm3 (4.4-11.0)
[2021-11-26 16:00] LABS: Absolute Lymphocyte Count 2.07 X10^3/uL (0.83-4.51); Absolute Neutrophil Count 4.5 X10^3/uL (2.0-7.7); Basophil# 0.01 X10^3/uL; Eosinophil# 0.04 X10^3/uL; Lymphocyte # 2.07 X10^3/ul (0.83-4.51); Monocyte# 0.56 X10^3/uL; NRBC Flagged by Analyzer 0 % (0-5); Neutrophil # 4.53 X10^3/uL (2.7-7.7)
[2021-11-26 16:14] LABS: Internal QC Validated? YES +Cl - CLEAR BKGD; Pregnancy, Serum, hCG Quali. NEGATIVE Negative
[2021-11-26 16:19] VITALS: BP 109/72; PULSE 77; RESP 26; TEMP 36.4; O2SAT 100
[2021-11-26 16:25] LABS: Anion Gap 6 (5-15); BUN 6 mg/dL (7-18); BUN/Creat Ratio 7.7 RATIO (10-20); Calcium,Total 9.1 mg/dL (8.5-10.1); Chloride 114 mmol/L (98-107); Creatinine, Serum 0.78 mg/dL (0.55-1.02); EST Glomerular Filtration Rate 99 mL/min (>60); Est Glom Filt Rate - Afr Amer 120 mL/min (>60); Estimated Creatinine Clearance 99.35 ml/min; Glucose 99 mg/dL (74-106); Sodium Level 141 mmol/L (136-145); Troponin-I HS < 3 pg/mL (3.0-54.0)
[2021-11-26 16:28] LABS: D-Dimer Quantitative (DVT/PE) < 0.27 FEU/ug/m (0.27-0.49)
[2021-11-26 18:04] VITALS: BP 114/77; PULSE 68; RESP 18; O2SAT 100
== END 2021-11-26 18:39 | disposition home or self-care (01) ==
PROVIDERS: Emergency Provider Emergency Medicine; Visit Provider Emergency Medicine
DX: R07.89 Other chest pain (principal); E87.6 Hypokalemia; R06.02 Shortness of breath; F17.210 Nicotine dependence, cigarettes, uncomplicated; J45.909 Unspecified asthma, uncomplicated; K21.9 Gastro-esophageal reflux disease without esophagitis; F41.9 Anxiety disorder, unspecified; F32.A Depression, unspecified
CPT/HCPCS: 36415; 71045; 80048; 84484; 84703; 85025; 85379; 87811; 93005; 99284; J7030; A4216

== ENCOUNTER → 2021-12-04 | Outpatient (CLI) | payer MEDICAID, SELFPAY ==
--- NOTE | 2021-12-04 07:53 | RAD_ITS ---
STUDY: X-RAY - ESOPHAGUS (BARIUM SWALLOW) WITH FLUOROSCOPY REASON FOR EXAM: Female, 21 years old. DYSPHAGIA TECHNIQUE: 16 view(s) of the esophagus were obtained following swallowing of barium. FLUOROSCOPY TIME (if supplied): (43 seconds) minutes/seconds COMPARISON: None. FINDINGS: There is no demonstrated esophageal foreign body. There is no demonstrated stricture or mucosal abnormality. Normal gastroesophageal junction, without a demonstrated hiatal hernia. There is evidence of gastroesophageal reflux. The patient ingested a 12 mm tablet of barium without any difficulty. Normal visualized aortic arch and descending thoracic aorta. Normal visualized pulmonary parenchyma. Normal visualized osseous structures of the thorax. RAD/Esophagus Single Contrast IMPRESSION: Gastroesophageal reflux. Electronically Signed: Eugenio Weathers MD at 8:37 EDT ,
[2021-12-04 09:38] LABS: Anion Gap 5 (5-15); BUN 11 mg/dL (7-18); BUN/Creat Ratio 12.9 RATIO (10-20); Calcium,Total 8.9 mg/dL (8.5-10.1); Chloride 115 mmol/L (98-107); Creatinine, Serum 0.85 mg/dL (0.55-1.02); EST Glomerular Filtration Rate 90 mL/min (>60); Est Glom Filt Rate - Afr Amer 108 mL/min (>60); Glucose 93 mg/dL (74-106); Potassium 3.8 mmol/L (3.5-5.1); Sodium Level 141 mmol/L (136-145)
== END | disposition home or self-care (01) ==
PROVIDERS: Referring Provider Otolaryngology; Visit Provider Otolaryngology
DX: R13.10 Dysphagia, unspecified (principal); E87.6 Hypokalemia
CPT/HCPCS: 36415; 74220; 80048; 83735

== ENCOUNTER 2021-12-08 14:48 | Emergency (ER) | payer MEDICAID, SELFPAY ==
[2021-12-08 14:50] VITALS: BP 127/72; PULSE 98; RESP 18; TEMP 36.5; O2SAT 100; BMI 27.6
--- NOTE | 2021-12-08 15:33 | ED.VIS.DYS ---
HPI <MOY Fenton - Last Filed: 12/08/21 16:21> History of Present Illness Chief Complaint: Shortness of Breath Narrative Narrative: 21-year-old female with history of POTS syndrome, endometriosis, anxiety, depression, PTSD presents to the emergency department because she feels shortness of breath. Patient states that this is been ongoing for 1 month. Patient states she sometimes wakes herself up because she feels short of breath, she has had friends tell her that she sounds short of breath. Patient does have history of asthma however does not feel that her inhalers are helping. She denies any fevers or chills. She denies any nausea or vomiting. PFS <MOY Fenton - Last Filed: 12/08/21 16:21> [facility] Medical History Anxiety Asthma Depression Diarrhea Endometriosis GERD (gastroesophageal reflux disease) Migraine Pelvic pain Pott disease PTSD (post-traumatic stress disorder) Thyroid disease Upper abdominal pain Home Medications albuterol sulfate 90 mcg/actuation aerosol inhaler 2 puff inhalation PRN PRN Wheezing 06/14/21 [History Last Taken Unknown] epinephrine 0.3 mg/0.3 mL injection, auto-injector 1 mg IM PRN PRN Allergic Reaction 06/14/21 [History Last Taken Unknown] prazosin 1 mg capsule 1 mg PO BID 06/14/21 [History Last Taken Unknown] aripiprazole 2 mg tablet 2 mg PO QHS 07/31/21 [History Last Taken Unknown] dicyclomine 10 mg capsule 20 mg PO TIDAC #20 CAPSULES 10/06/21 [Rx Last Taken Unknown] fluoxetine 10 mg capsule 3 cap PO DAILY 10/06/21 [History Last Taken Unknown] ondansetron 4 mg disintegrating tablet 4 mg PO Q8H PRN PRN Nausea #10 tabs 10/06/21 [Rx Last Taken Unknown] topiramate 25 mg tablet 1 tab PO TID 10/06/21 [History Last Taken Unknown] omeprazole 20 mg capsule,delayed release 20 mg PO DAILY 10/25/21 [History Last Taken Unknown] sucralfate 100 mg/mL oral suspension (Carafate) 10 ml PO BID PRN epigastric pain #400 mL 11/01/21 [Rx Last Taken Unknown] potassium chloride 20 mEq tablet,extended release 20 meq PO BID #6 tabs 11/26/21 [Rx Last Taken Unknown] omeprazole 40 mg capsule,delayed release 40 mg PO DAILY #30 caps 12/08/21 [Rx Last Taken Unknown] Allergy/AdvReac Type Severity Reaction Status Date / Time gabapentin Allergy Rash Verified 12/08/21 14:50 sertraline [From Zoloft] Allergy Anaphylaxis Verified 12/08/21 14:50 silicone Allergy Rash Verified 12/08/21 14:50 lactose AdvReac Upset Verified 12/08/21 14:50 Stomach NASAL SPRAY Allergy Hives Uncoded 12/08/21 14:50 Family History Father Anxiety Depression Asthma Thyroid disorder Mother Asthma Diabetes Anxiety Depression Brother Oleksandr-Danlos syndrome Surgical History Hx of laparoscopy Social History household members: none Smoking Status: Current every day smoker tobacco type: e-cigarettes alcohol intake: current substance use type: does not use ROS <MOY Fenton - Last Filed: 12/08/21 16:21> [facility] ROS Narrative Constitutional: Negative for fever, chills, weight loss, weakness Eyes: Negative for vision loss, vision change, double vision ENT: Negative for any sore throat, ear pain, congestion Cardiovascular: Negative for any chest pain, tightness, palpitations Respiratory: Negative for any cough, sputum production, hemoptysis, dyspnea on exertion, Positive for intermittent dyspnea Gastrointestinal: Negative for any abdominal pain, nausea, vomiting, diarrhea, constipation, blood in stool, blood in vomit : Negative for any urinary frequency, dysuria, retention, blood in urine Muscle skeletal: Negative for any muscle joint pain, stiffness, myalgias, arthralgias, neck pain, back pain Neurological: Negative for any headache, syncope, numbness or tingling, dizziness Skin: Negative for any rashes, lumps, itching, abrasions, lacerations Psychiatric: Negative for any depression, anxiety, stress, suicidal ideation, homicidal ideation Hematologic: Negative for any easy bruising, excessive bruising, easy bleeding Allergies: Negative for any eczema, hives, rash EXAM <MOY Fenton - Last Filed: 12/08/21 16:21> Physical Exam Narrative Exam Narrative: Vital signs reviewed. Patient talking pleat sentences, patient is in no distress. HEET: Head normocephalic atraumatic, TMs clear bilaterally. Posterior pharynx is clear, moist mucous membranes. Nares clear bilaterally. Neck: Supple with no lymphadenopathy or tenderness. No signs of meningismus, negative jolt sign. Cardiac: Regular rate and rhythm no murmurs gallops or rubs, equal peripheral pulses bilaterally. Respiratory: Lungs clear to auscultation bilaterally. No chest tenderness. Abdomen: Soft, nontender, nondistended. No abdominal bruit or pulsatile masses. No hepatosplenomegaly Extremities: No peripheral edema, no signs of gross trauma or deformity. Active full range of motion of all extremities. Neuro: Cranial nerves II through XII intact, no focal neurological deficits. Skin: Clean dry and intact with no rash, purpura, petechiae, vesicles or pustules. Backs/flank: No CVA tenderness, no midline spinal tenderness, no deformity. Psych: Normal mood and affect. No SI, HI or acute psychosis. Const Vital Signs: 12/08/21 14:50 12/08/21 15:21 12/08/21 16:27 Temperature 97.7 F L Temperature Source Temporal Pulse Rate 98 68 Respiratory Rate 18 14 Respiratory Effort Short of Breath Blood Pressure 127/72 H 122/69 H Blood Pressure Mean 90 Pulse Ox 100 99 Oxygen Delivery Method Room Air Positive well nourished and well developed General Appearance ED: well developed <Dr. Fabrice Em MD - Last Filed: 12/08/21 18:25> Physical Exam Const Vital Signs: 12/08/21 14:50 12/08/21 15:21 12/08/21 16:27 Temperature 97.7 F L Temperature Source Temporal Pulse Rate 98 68 Respiratory Rate 18 14 Respiratory Effort Short of Breath Blood Pressure 127/72 H 122/69 H Blood Pressure Mean 90 Pulse Ox 100 99 Oxygen Delivery Method Room Air MDM <MOY Fenton - Last Filed: 12/08/21 16:21> MDM Treatment and Re-Evaluation Narrative: Patient appears well, patient appears nontoxic, vital signs are stable. Patient presents the emergency department with 1 month of intermittent shortness of breath, worsening shortness of breath, chest discomfort today. Patient does have history of chest discomfort which she is not overly worried about. Patient physical examination was grossly unremarkable, lung sounds were clear, she was ordered a 2 view chest x-ray as well as a COVID/flu test. However patient states that it was taking too long and she would like to be discharged. Patient also complained of issues regarding acid reflux. Patient does not want to do the COVID-19 test or the chest x-ray, due to the patient having a normal examination this is appropriate. Patient will follow with her PCP, instructed return for any worsening symptoms. <Dr. Fabrice Em MD - Last Filed: 12/08/21 18:25> [facility] MDM Narrative Medical decision making narrative: I have personally performed a face to face assessment of the patient and have reviewed the ALANIS Note. I performed a substantive portion of the visit including all aspects of the following. My lawson findings include: History is remarkable for intermittent shortness of breath for approximately 1 month. She experience chest discomfort today. Chest discomfort is the middle of her chest. Did not radiate. There is no associated symptoms. She denies upper respiratory symptoms. She denies myalgias or arthralgias. She states she has in the appointment at a clinic for problems with her breathing. She does endorse tasting blood when she has shortness of breath. She denies history of vocal cord dysfunction. Patient denies anxiety. Patient denies history of VTE. Patient denies GI symptoms. Exam is unremarkable. HEENT exam is unremarkable her trachea midline. No inspiratory stridor. No cervical lymphadenopathy. Heart is regular. There is no murmur, gallop or rub. Rate is normal. Lungs are clear to auscultation with diminished bilateral. Abdomen is soft nontender. There is no asymmetry, swelling, discoloration, leg vein distention, palpable cords or tenderness along the distribution of the deep venous system. Medical Decision Making patient declined chest x-ray and COVID test that was ordered. Patient wishes to keep her appointment at the clinic. She was discharged to home. Other additions or changes: Patient does give symptoms consistent with GERD. Patient was unaware that she should not eat 3 hours before going to bed and should avoid certain foods. She was told the importance of taking the omeprazole she was prescribed. Discharge Plan Triage Chief Complaint: Shortness of Breath ED Midlevel Provider: Sumanth Potts ED Provider: Fabrice Em Dx/Rx/DC Orders Clinical Impression: Increasing shortness of breath, Gastroesophageal reflux disease Instructions: ED Dyspnea, ED GERD (Adult) Prescriptions: New omeprazole 40 mg capsule,delayed release(DR/EC) 40 mg PO DAILY Qty: 30 0RF No Action omeprazole 20 mg capsule,delayed release(DR/EC) 20 mg PO DAILY prazosin 1 mg capsule 1 mg PO BID Label Comments: take 1 capsule by mouth at bedtime epinephrine 0.3 mg/0.3 mL auto-injector 1 mg IM PRN PRN (Reason: Allergic Reaction) Label Comments: INJECT INTO THE MUSCLE NEEDED FOR ANAPHYLAXIS REACTION albuterol sulfate 90 mcg/actuation HFA aerosol inhaler 2 puff INHALATION PRN PRN (Reason: Wheezing) Label Comments: inhale 2 puffs by mouth and INTO THE LUNGS every 4 hours if neede... (REFER TO PRESCRIPTION NOTES). aripiprazole 2 mg tablet 2 mg PO QHS topiramate 25 mg tablet 1 tab PO TID Label Comments: take 1 tablet by mouth once daily at bedtime for 1 week then INCR... (REFER TO PRESCRIPTION NOTES). fluoxetine 10 mg capsule 3 cap PO DAILY ondansetron [ondansetron] 4 mg tablet,disintegrating 4 mg PO Q8H PRN PRN (Reason: Nausea) Qty: 10 0RF dicyclomine 10 mg capsule 20 mg PO TIDAC Qty: 20 0RF sucralfate [Carafate] 100 mg/mL suspension 10 ml PO BID PRN (Reason: epigastric pain) Qty: 400 0RF potassium chloride 20 mEq tablet extended release 20 meq PO BID Qty: 6 0RF Primary Care [facility] - Disposition Disposition: Home, Self Care Discharge Date/Time: 12/08/21 16:32
[2021-12-08 16:27] VITALS: BP 122/69; PULSE 68; RESP 14; O2SAT 99
--- NOTE | 2021-12-08 16:29 | ED.RN ---
JACKELYN STATES SHE HAS A VERY IMPORTANT MEETING AT 1700 AND WOULD LIKE TO LEAVE. NO TESTING HAS BEEN DONE AT THIS TIME. PASCUAL SHEFFIELD NOTIFIED.
== END 2021-12-08 16:32 | disposition home or self-care (01) ==
PROVIDERS: Emergency Provider Emergency Medicine; Visit Provider Emergency Medicine
DX: R06.02 Shortness of breath (principal); K21.9 Gastro-esophageal reflux disease without esophagitis; F41.9 Anxiety disorder, unspecified; F17.210 Nicotine dependence, cigarettes, uncomplicated
CPT/HCPCS: 99281

== ENCOUNTER → 2022-01-04 | Outpatient (CLI) | payer MEDICAID, SELFPAY ==
[2022-01-04 17:39] LABS: Erythrocyte Sedimentation Rate 39 mm/hr (0-30)
[2022-01-04 18:01] LABS: CRP 7.04 mg/L (0.0-3.0)
[2022-01-08 16:08] LABS: Endomysial Antibody IgA Negative (Negative)
[2022-01-08 18:08] LABS: Anti-Centromere B Ab <0.2 AI (0.0-0.9); Anti-Chromatin <0.2 AI (0.0-0.9); Anti-Jo <0.2 AI (0.0-0.9); Anti-Scleroderma-70 AB <0.2 AI (0.0-0.9); RNP Ab 0.6 AI (0.0-0.9); SJOGREN'S Anti-SS-A test < 0.2 AI (0.0-0.9); SJOGREN'S Anti-SS-B test < 0.2 AI (0.0-0.9); Smith Ab <0.2 AI (0.0-0.9)
[2022-01-09 13:49] LABS: Immunoglobulin A 328 mg/dL (87-352); t-Transglutaminase IgA <2 U/mL (0-3)
[2022-01-09 13:58] LABS: Anti-dsDNA Ab 1 IU/mL (0-9)
[2022-01-11 11:09] LABS: Albumin 3.3 g/dL (2.9-4.4); Alpha-1-Globulins 0.3 g/dL (0.0-0.4); Alpha-2-Globulins 1.1 g/dL (0.4-1.0); Cytoplasmic Ab (C-ANCA) <1:20 titer (Neg:<1:20); Gamma Globulin 1.5 g/dL (0.4-1.8); Immunoglobulin A 300 mg/dL (87-352); Immunoglobulin G 1349 mg/dL (586-1602); Immunoglobulin M 147 mg/dL (26-217); PROEL- TOTAL PROTEIN 7.2 g/dL (6.0-8.5)
[2022-01-11 16:23] LABS: Immunoglobulin E 29 IU/mL (6-495); Perinuclear Ab (P-ANCA) <1:20 titer (Neg:<1:20)
== END | disposition home or self-care (01) ==
LOC: LAB 15:55
PROVIDERS: Referring Provider Internal Medicine Gastroenterology; Visit Provider Internal Medicine Gastroenterology
DX: R19.7 Diarrhea, unspecified (principal)
CPT/HCPCS: 36415; 82784; 82785; 83516; 84165; 85652; 86140; 86225; 86235; 86255; 86256; 86334

== ENCOUNTER 2022-01-13 02:22 | Emergency (ER) | payer MEDICAID, SELFPAY ==
[2022-01-13 02:23] VITALS: BP 143/72; TEMP 36.4; BMI 36.9
--- NOTE | 2022-01-13 03:12 | ED.RN ---
pt called out and requested nurse, this RN goes to bedside. pt states she feels absolutely fine, i think im going to leave. explained to patient that she is next up to be seen by doctor and that the doctor was doing a procedure. Pt given option to wait a few more minutes or she was free to leave. Pt states she just wanted to leave and would come back if she changed her mind.
== END 2022-01-13 03:15 | disposition left against medical advice (07) ==
PROVIDERS: Emergency Provider Emergency Medicine; Visit Provider Emergency Medicine
DX: R42 Dizziness and giddiness (principal)
CPT/HCPCS: 99282

== ENCOUNTER → 2022-01-16 | Outpatient (CLI) | payer BC, MEDICAID, SELFPAY ==
--- NOTE | 2022-01-16 13:58 | ECHOD_ITS ---
Reason For Study: Synocpe Procedure This was a 2D Doppler, Color Flow transthoracic echocardiogram. The exam was of adequate technical quality. Exam performed in department. Left Ventricle Normal LV size. Left ventricular systolic function is normal. The estimated ejection fraction is 65 %. No evidence for diastolic dysfunction. No regional wall motion abnormalities noted. Right Ventricle Normal RV size. Normal systolic function. Atria Normal left atrium. Normal right atrium. No doppler evidence for ASD. Mitral Valve There is no mitral annular calcification. Normal mitral valve. Trivial mitral valve insufficiency. Tricuspid Valve Normal tricuspid valve. Trivial tricuspid valve insufficiency. Right ventricular systolic pressure estimated to be 23 mmHg. Aortic Valve Trisinus/trileaflet aortic valve. Normal aortic valve. Pulmonic Valve The pulmonic valve is not well visualized. Great Vessels Normal sized aortic root. Pericardium/Pleural No pericardial effusion. MMode/2D Measurements & Calculations LVIDd: 4.3 cm IVSd: 0.93 cm Ao root diam: 2.6 cm LVIDs: 3.0 cm LVPWd: 0.94 cm LA dimension: 3.3 cm RVDd: 2.4 cm FS: 31.5 % LAV(MOD-bp): 28.4 ml LA A4 area: 11.2 cm2 RA A4 area: 10.3 cm2 LAV(MOD-bp) Indexed: 15.8 ml/m2 LAV(MOD-sp2): 30.0 ml LAV(MOD-sp4): 26.9 ml Time Measurements MV dec time: 0.20 sec Doppler Measurements & Calculations MV E max gustavo: 91.9 cm/sec Lat Peak E' Gustavo: 19.1 cm/sec Med Peak E' Gustavo: 15.0 cm/sec MV A max gustavo: 63.5 cm/sec E/E' lat: 4.8 E/E' med: 6.1 MV E/A: 1.4 MV V2 max: 142.8 cm/sec MV P1/2t max gustavo: 141.8 cm/sec Ao V2 max: 129.8 cm/sec MV max P.2 mmHg MV P1/2t: 76.0 msec Ao max P.7 mmHg MV V2 mean: 75.9 cm/sec MV dec slope: 546.3 cm/sec2 Ao V2 mean: 92.9 cm/sec MV mean P.8 mmHg MVA(P1/2t): 2.9 cm2 Ao mean P.9 mmHg MV V2 VTI: 26.9 cm Ao V2 VTI: 27.0 cm LV V1 max: 94.5 cm/sec PA V2 max: 98.0 cm/sec TR max gustavo: 223.8 cm/sec LV V1 max P.6 mmHg PA V2 mean: 73.9 cm/sec TR max P.0 mmHg LV V1 mean P.2 mmHg LV V1 mean: 69.9 cm/sec LV V1 VTI: 20.7 cm ECHO/Echo Complete Interpretation Summary Left ventricular systolic function is normal. The estimated ejection fraction is 65 %. Trivial mitral valve insufficiency. Trivial tricuspid valve insufficiency. Right ventricular systolic pressure estimated to be 23 mmHg. No evidence for diastolic dysfunction. Ordering Physician: Sumanth Sorto Referring Physician: Sumanth Sorto Performed By: Kobi Lira, [facility]
== END | disposition home or self-care (01) ==
LOC: CVS 13:58
PROVIDERS: Referring Provider Internal Medicine Cardiovascular Disease; Visit Provider Internal Medicine Cardiovascular Disease
DX: R00.2 Palpitations (principal); R00.0 Tachycardia, unspecified; I49.8 Other specified cardiac arrhythmias
CPT/HCPCS: 93306

== ENCOUNTER → 2022-02-01 | Outpatient (CLI) | payer BC, MEDICAID, SELFPAY ==
[2022-02-01 09:15] LABS: Hematocrit 41.7 % (37-47); Mean Corp Hgb Conc 33.6 g/dL (32-36); Mean Corpuscular Hgb 25.7 pg (27.0-32.0); Mean Corpuscular Volume 76.5 fL (81-99); Mean Platelet Vol. 8.7 fl (6.2-12.0); Platelet Count 372 K/mm3 (150-450); RBC Distribution Width CV 14.7 % (11.6-14.6); RBC Distribution Width SD 40.2 fl (35.1-43.9); Red Blood Count 5.45 M/mm3 (4.2-5.4)
[2022-02-01 09:25] LABS: Internal QC Validated? YES +Cl - CLEAR BKGD; Pregnancy, Serum, hCG Quali. NEGATIVE Negative
--- NOTE | 2022-02-01 17:50 | TILTTABLE_ITS ---
Staff Staff: Mirtha Cee and Ashley Tinoco Summary Protocol: 70 Degree Upright Tilt Pre Test Resting HR: 65 Pre Test Resting BP: 123/80 Minimum Test HR: 67 Maximum Test HR: 142 Minimum Test BP: 95/49 Maximum Test BP: 130/78 Reason for Test Termination: Reached Maximum Test Time Physician Tilt Table Report Patient's Physicians [facility] Commanding Officer: Sumanth Sorto Indications/Diagnosis: Dizziness, lightheadedness, tachycardia Procedure Comments: The patient presented to the tilt table laboratory. The patient was awake and alert. The baseline heart rate was 65 bpm with a baseline blood pressure 123/80 mmHg. The cardiac rhythm appeared to be normal sinus rhythm. The patient was placed in the 70 degree upright tilt table position for approximately 20 minutes. The patient remained alert and oriented and warm and dry and subsequently reported as cool . During that time the initial heart rate was 109 bpm with a blood pressure 116/79 mmHg and at the conclusion of that time the heart rate was 95 bpm with a blood pressure 108/72 mmHg. The cardiac rhythm remained normal sinus rhythm. The patient reported a headache went up, feel kind of out of it , chest burning, arms going numb, feet tingling, weak, cold, and tired feeling. The patient did not lose consciousness. The patient was returned to the supine position. The patient was awake and alert and warm and dry. The heart rate was 67 bpm with a blood pressure 125/80 mmHg. The cardiac rhythm was sinus rhythm. The patient was given nitroglycerin 0.4 mg sublingual x1. The patient was returned to the 70 degree upright tilt table position for approximately 8 minutes. During that time the patient remained alert and oriented and cool and dry. The initial heart rate was 142 bpm with a blood pressure 123/66 mmHg and the concluding heart rate was 117 bpm with a blood pressure of 97/68 mmHg. The cardiac rhythm remained a sinus rhythm/sinus tachycardia. The patient reported sensations of feeling weak all over, dizzy, nauseated,. The patient did not lose consciousness. The patient was returned to the supine position. The patient remained alert and oriented and warm and dry. The patient had a concluding heart rate of 77 bpm with a concluding blood pressure 118/77 mmHg. The patient was treated with normal saline 500 cc x 1 IV. The patient noted feeling better overall. The patient was eventually released from the tilt table laboratory. Summary: 70 degree upright tilt table study pre nitroglycerin sublingual challenge considered negative for a diagnosis of POTS (would require an increase in heart rate of greater than 30 bpm within 10 minutes of assuming an upright posture and in the absence of orthostatic hypotension-based upon ACC guidelines). 70 degree upright tilt table study pre and post nitroglycerin sublingual challenge demonstrated symptoms concerning for vasovagal mediated symptoms but considered negative for vasovagal/neurocardiogenic mediated near-syncope or syncope. This note was generated using a voice recognition system and there may be incorrect words, spelling or punctuation that were not noted when reviewing the office note prior to saving.
[2022-02-01 17:59] VITALS: BP 123/80; BP 130/78; BP 95/49
== END | disposition home or self-care (01) ==
LOC: CVS 09:01
PROVIDERS: Referring Provider Internal Medicine Cardiovascular Disease; Visit Provider Internal Medicine Cardiovascular Disease
DX: R00.2 Palpitations (principal); R00.0 Tachycardia, unspecified; I49.8 Other specified cardiac arrhythmias
CPT/HCPCS: 36415; 84703; 85027; 93660; J7040; A4216

== ENCOUNTER 2022-02-08 11:23 | Emergency (ER) | payer BC, MEDICAID, SELFPAY ==
[2022-02-08 11:24] VITALS: BP 138/87; PULSE 95; RESP 16; TEMP 36.9; O2SAT 100; BMI 26.7
--- NOTE | 2022-02-08 11:52 | CT_ITS ---
STUDY: CT ABDOMEN AND PELVIS WITH CONTRAST REASON FOR EXAM: Female, 22 years old. Epigastric pain. RADIATION DOSAGE (If Supplied By Facility): CTDIvol = ( 13.20 ) mGy, DLP = ( 678.22 ) mGycm TECHNIQUE: Transaxial images were obtained from the dome of the diaphragm to the symphysis pubis without oral contrast. IV 100mL [id number]-300 was administered. Sagittal and coronal images were reconstructed. Individualized dose optimization techniques were used for this CT. COMPARISON: Comparison is made with prior study of 11/01/2019. FINDINGS: The visualized lung bases are unremarkable. The visualized portions of the heart are within normal limits. Stable 1.2 some hypodensity in the anterior aspect of the right lobe of the liver immediately adjacent to the falciform ligament. Normal gallbladder and extrahepatic biliary system. Normal spleen. Normal pancreas. Normal bilateral adrenal glands. Normal right kidney. Normal left kidney. Normal visualized stomach. Normal small intestine. Normal colon. The appendix is visualized and appears normal. Normal abdominal aorta. Normal inferior vena cava. Normal retroperitoneum. Normal urinary bladder. Follicles are seen in the right ovary. Normal abdominal wall. Normal osseous structures. CT/Abdomen/Pelvis W IV Cont ONLY IMPRESSION: Normal enhanced CT of the abdomen and pelvis. Electronically Signed: Eugenio Weathers MD at 13:25 EDT ,
--- NOTE | 2022-02-08 11:53 | EX.ED.DYSGE1 ---
HPI History of Present Illness Chief Complaint: General Illness Informant: patient Narrative Narrative: 22-year-old female presented to the emergency room with a chief complaint of headache and abdominal pain. She states both symptoms have started about 1 week ago. She notes some generalized neck soreness and describes the headache as occipital but wrapping to the front. She states that changes sides. She denies any light sensitivity. She notes an epigastric burning pain that is worse with eating. She states today at urgent care the pain moved over to the right upper quadrant when they pushed on her abdomen and so they sent her to the emergency department. 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 She has a history of PTSD/bipolar disorder as well as POTS. She denies any black or bloody stool. No diarrhea or vomiting but does endorse nausea. She also notes that she has had ear pain for years but all doctors brush me off. She also states that they itch. [facility] Medical History Anxiety Asthma Depression Diarrhea Endometriosis GERD (gastroesophageal reflux disease) Migraine OCD (obsessive compulsive disorder) Pelvic pain POTS (postural orthostatic tachycardia syndrome) PTSD (post-traumatic stress disorder) Schizophrenia Tachycardia Upper abdominal pain Home Medications albuterol sulfate 90 mcg/actuation aerosol inhaler 2 puff inhalation PRN PRN Wheezing 06/14/21 [History Last Taken Unknown] epinephrine 0.3 mg/0.3 mL injection, auto-injector 1 mg IM PRN PRN Allergic Reaction 06/14/21 [History Last Taken Unknown] prazosin 1 mg capsule 1 mg PO TID 06/14/21 [History Last Taken Unknown] aripiprazole 2 mg tablet 5 mg PO QHS 07/31/21 [History Last Taken Unknown] fluoxetine 10 mg capsule 3 cap PO DAILY 10/06/21 [History Last Taken Unknown] omeprazole 40 mg capsule,delayed release 40 mg PO DAILY #30 caps 12/08/21 [Rx Last Taken Unknown] diclofenac sodium 75 mg tablet,delayed release 75 mg PO BID PRN pain 01/04/22 [History Last Taken Unknown] medroxyprogesterone 150 mg/mL intramuscular suspension (Depo-Provera) 150 mg IM Q6W 01/04/22 [History Last Taken Unknown] topiramate 100 mg tablet 125 mg PO QHS 01/04/22 [History Last Taken Unknown] sucralfate 1 gram tablet (Carafate) 1 g PO Q6H 2 weeks #56 tabs 02/08/22 [Rx Last Taken Unknown] Allergy/AdvReac Type Severity Reaction Status Date / Time gabapentin Allergy Rash Verified 02/08/22 11:26 sertraline [From Zoloft] Allergy Anaphylaxis Verified 02/08/22 11:26 silicone Allergy Rash Verified 02/08/22 11:26 lactose AdvReac Upset Verified 02/08/22 11:26 Stomach NASAL SPRAY Allergy Hives Uncoded 01/13/22 02:26 Family History Father Anxiety Depression Asthma Hypertension Mother Asthma Diabetes Anxiety Depression CAD (coronary artery disease) Myocardial infarction, Onset Age: 42 Brother Oleksandr-Danlos syndrome Grandmother Myocardial infarction, Onset Age: 41 Grandfather Myocardial infarction, Onset Age: 38 Surgical History History of colonoscopy History of esophagogastroduodenoscopy (EGD) Hx of laparoscopy Social History household members: none Smoking Status: Current every day smoker tobacco type: e-cigarettes alcohol intake: current alcohol intake frequency: holidays/special occasions only substance use type: does not use caffeine: Yes Type: carbonated beverages, coffee and tea ROS ROS ED Constitutional Constitutional ED: Denies chills or weight loss Eyes Eyes: Denies blurry vision, change in vision or diplopia ENT ENT ED: Reports ear pain; Denies rhinorrhea or sore throat Cardiovascular Cardiovascular: Denies chest pain, orthopnea, palpitations or racing heartbeat Respiratory/Chest Respiratory/Chest: Denies cough, dyspnea or orthopnea Gastrointestinal Gastrointestinal: Reports abdominal pain and nausea; Denies constipation, diarrhea, melena or vomiting Genitourinary Genitourinary ED: Denies dysuria, hematuria or urinary frequency Musculoskeletal Musculoskeletal: Reports neck pain; Denies arthralgias or myalgias Integumentary Denies abscess or rash Neurologic Neurologic: Denies headache(s) or weakness Psychiatric Psychiatric: Denies anxiety, depression, suicidal ideation or suicidal thoughts Endocrine Endocrinology: Denies polydipsia, polyphagia or polyuria Allergic/Immunologic Allergic/Immunologic ED: Denies mouth swelling, tongue swelling or urticaria EXAM Physical Exam Const Vital Signs: 02/08/22 11:24 02/08/22 11:43 02/08/22 13:46 Temperature 98.4 F Temperature Source Temporal Pulse Rate 95 78 Respiratory Rate 16 18 Respiratory Effort Normal Short of Breath Respiratory Pattern Irregular Blood Pressure 138/87 H 100/66 Blood Pressure Mean 104 Pulse Ox 100 100 Oxygen Delivery Method Room Air Positive well nourished and well developed General Appearance ED: well developed HEENT Reports normocephalic, head/scalp atraumatic and moist mucous membranes Eyes PERRL and EOMs intact bilaterally Neck no lymphadenopathy, supple and no JVD Resp normal respiratory effort and clear to auscultation bilaterally Cardio regular rate, regular rhythm and no murmurs GI Palpation: soft and tender epigastric and RUQ; Negative for guarding or splenomegaly Back/Spine no CVA tenderness and normal ROM Extremity normal to inspection General Extremety ED: Negative for edema General Extremity: Negative for edema Neuro oriented x3 and CN's II-XII intact bilaterally Sensorium / Orientation: alert Motor Exam: strength 5/5 throughout Psych mental status grossly normal Mood & Affect: Negative for depressed or tearful Skin no rashes or lesions noted and no wounds MDM MDM MDM Narrative Medical decision making narrative: Patient was Toradol for pain. Basic blood work was negative test is negative. CT of the abdomen pelvis is negative. Given the burning epigastric pain negative work-up think this is most likely a gastritis. Patient is currently on omeprazole going to add in some Carafate. Would encourage primary care follow-up in the next couple weeks. Return if worsening or concerns. Lab Data Attestation: I reviewed the patient's lab results. Labs: Laboratory Results - last 24 hr 02/08/22 02/08/22 02/08/22 11:40 11:40 11:40 WBC 6.6 RBC 5.03 Hgb 12.9 Hct 38.3 MCV 76.1 L MCH 25.6 L MCHC 33.7 RDW Std Deviation 40.5 RDW Coeff of Anoop 14.8 H Plt Count 421 MPV 9.0 Immature Gran % (Auto) 0.300 Neut % (Auto) 65.7 Lymph % (Auto) 25.0 [place] % (Auto) 8.1 Eos % (Auto) 0.6 Baso % (Auto) 0.3 Absolute Neuts (auto) 4.3 Absolute Lymphs (auto) 1.64 Nucleated RBC % 0 Sodium 139 Potassium 3.6 Chloride 113 H Carbon Dioxide 19.0 L Anion Gap 7 BUN 7 Creatinine 0.76 Estim Creat Clear Calc 101.11 Est GFR (MDRD) Af Amer 124 Est GFR (MDRD) Non-Af 102 BUN/Creatinine Ratio 9.2 L Glucose 91 Calcium 8.9 Total Bilirubin 0.20 AST 11 L ALT 20 Alkaline Phosphatase 97 Total Protein 7.4 Albumin 3.6 Globulin 3.8 Albumin/Globulin Ratio 0.9 Lipase 82 Serum , Qual NEGATIVE Radiography Diagnostic Testing: Clinical Impression(s) from Imaging Studies Abdomen/Pelvis CT 02/08/22 11:52 IMPRESSION: Normal enhanced CT of the abdomen and pelvis. Electronically Signed: Eugenio Weathers MD at 13:25 EDT , Discharge Plan Triage Chief Complaint: General Illness ED Provider: Meet Altamirano Dx/Rx/DC Orders Clinical Impression: Headache, Abdominal pain, Gastritis Instructions: Understanding Gastritis Prescriptions: New sucralfate [Carafate] 1 gram tablet 1 g PO Q6H 14 Days Qty: 56 0RF No Action diclofenac sodium 75 mg tablet,delayed release (DR/EC) 75 mg PO BID PRN (Reason: pain) topiramate 100 mg tablet 125 mg PO QHS medroxyprogesterone [Depo-Provera] 150 mg/mL suspension 150 mg IM Q6W Label Comments: INJECT 1ML INTRAMUSCULARILY EVERY 12 WEEKS prazosin 1 mg capsule 1 mg PO TID Label Comments: take 1 capsule by mouth at bedtime epinephrine 0.3 mg/0.3 mL auto-injector 1 mg IM PRN PRN (Reason: Allergic Reaction) Label Comments: INJECT INTO THE MUSCLE NEEDED FOR ANAPHYLAXIS REACTION albuterol sulfate 90 mcg/actuation HFA aerosol inhaler 2 puff INHALATION PRN PRN (Reason: Wheezing) Label Comments: inhale 2 puffs by mouth and INTO THE LUNGS every 4 hours if neede... (REFER TO PRESCRIPTION NOTES). aripiprazole 2 mg tablet 5 mg PO QHS fluoxetine 10 mg capsule 3 cap PO DAILY omeprazole 40 mg capsule,delayed release(DR/EC) 40 mg PO DAILY Qty: 30 0RF Stand Alone Forms: ED Work / School Excuse Primary Care Provider: Medical Sury Queen Referrals: [facility] Bernice,Sury Catherine [Primary Care Provider] - 1-2 Weeks Disposition Disposition: Home, Self Care
[2022-02-08] MEDS: Ketorolac 30 MG/ML Syringe IV (11:58)
[2022-02-08 12:18] LABS: Absolute Lymphocyte Count 1.64 X10^3/uL (0.83-4.51); Absolute Neutrophil Count 4.3 X10^3/uL (2.0-7.7); Basophil# 0.02 X10^3/uL; Basophil% 0.3 % (0-1); Eosinophil# 0.04 X10^3/uL; Eosinophils% 0.6 % (0-5); Hematocrit 38.3 % (37-47); Hemoglobin 12.9 g/dL (12.0-15.0); Lymphocyte # 1.64 X10^3/ul (0.83-4.51); Mean Corp Hgb Conc 33.7 g/dL (32-36); Mean Corpuscular Hgb 25.6 pg (27.0-32.0); Mean Corpuscular Volume 76.1 fL (81-99); Monocyte# 0.53 X10^3/uL; Monocyte% 8.1 % (0-10); NRBC Flagged by Analyzer 0 % (0-5); Neutrophil # 4.32 X10^3/uL (2.7-7.7); Neutrophil % 65.7 % (47-70); Platelet Count 421 K/mm3 (150-450); RBC Distribution Width CV 14.8 % (11.6-14.6); RBC Distribution Width SD 40.5 fl (35.1-43.9); Red Blood Count 5.03 M/mm3 (4.2-5.4); White Blood Count 6.6 K/mm3 (4.4-11.0)
[2022-02-08 12:34] LABS: ALB/GLOB Ratio 0.9 RATIO (0.9-2.4); AST(SGOT) 11 U/L (15-37); Alanine Aminotransfer ALT/SGPT 20 U/L (13-56); Albumin, Serum 3.6 g/dL (3.2-5.0); Alkaline Phosphatase 97 U/L (45-117); Anion Gap 7 (5-15); BUN 7 mg/dL (7-18); BUN/Creat Ratio 9.2 RATIO (10-20); Calcium,Total 8.9 mg/dL (8.5-10.1); Chloride 113 mmol/L (98-107); Creatinine, Serum 0.76 mg/dL (0.55-1.02); EST Glomerular Filtration Rate 102 mL/min (>60); Est Glom Filt Rate - Afr Amer 124 mL/min (>60); Estimated Creatinine Clearance 101.11 ml/min; Globulin 3.8 g/dL (2.2-4.2); Glucose 91 mg/dL (74-106); Lipase 82 U/L (73-393); Potassium 3.6 mmol/L (3.5-5.1); Protein, Total 7.4 g/dL (6.4-8.2); Sodium Level 139 mmol/L (136-145)
[2022-02-08 12:42] LABS: Internal QC Validated? YES +Cl - CLEAR BKGD; Pregnancy, Serum, hCG Quali. NEGATIVE Negative
[2022-02-08 13:46] VITALS: BP 100/66; PULSE 78; RESP 18; O2SAT 100
== END 2022-02-08 14:01 | disposition home or self-care (01) ==
PROVIDERS: Emergency Provider Emergency Medicine; Visit Provider Emergency Medicine
DX: K29.70 Gastritis, unspecified, without bleeding (principal); F31.9 Bipolar disorder, unspecified; R51.9 Headache, unspecified; R21 Rash and other nonspecific skin eruption; F17.210 Nicotine dependence, cigarettes, uncomplicated; R10.9 Unspecified abdominal pain
CPT/HCPCS: 74177; 80053; 83690; 84703; 85025; 96374; 99283; Q9967; A4216

== ENCOUNTER 2022-02-27 17:20 | Emergency (ER) | payer MEDICAID, SELFPAY ==
[2022-02-27 17:21] VITALS: BP 121/76; PULSE 93; RESP 12; TEMP 36.9; O2SAT 97; BMI 27.7
--- NOTE | 2022-02-27 17:48 | EKG12_ITS ---
Test Reason : DIZZY/CP/SOB Blood Pressure : / mmHG Vent. Rate : 071 BPM Atrial Rate : 071 BPM P-R Int : 134 ms QRS Dur : 076 ms QT Int : 388 ms P-R-T Axes : 033 030 019 degrees QTc Int : 421 ms Normal sinus rhythm with sinus arrhythmia Normal ECG Confirmed by SALLY COOL, HUBER ([id number]), newspaper editor managing JOHANA ESCAMILLA ([id number]) on 02/28/2022 2:41:35 PM Referred By: Confirmed By:HUBER ZAVALA MD
--- NOTE | 2022-02-27 17:49 | EX.ED.DYSGE1 ---
HPI History of Present Illness Chief Complaint: Dizziness Detail of Chief Complaint: Dizziness and multiple complaints Informant: patient Narrative Narrative: Patient presents the emergency department with multiple complaints today. Patient complains of dizziness, headache, chest pain, left side body pain, and nausea. Patient states that she has not been feeling well since this morning. Patient denies recent travel or surgery. She denies fever or cough. Patient does have history of migraines and POTS as well as PTSD and history of schizophrenia. Patient thinks this is different than her anxiety. Prior similar symptoms: No PFSH PFSH Medical History Anxiety Asthma Depression Diarrhea Endometriosis GERD (gastroesophageal reflux disease) Migraine OCD (obsessive compulsive disorder) Pelvic pain POTS (postural orthostatic tachycardia syndrome) PTSD (post-traumatic stress disorder) Schizophrenia Tachycardia Upper abdominal pain Home Medications albuterol sulfate 90 mcg/actuation aerosol inhaler 2 puff inhalation PRN PRN Wheezing 06/14/21 [History Last Taken Unknown] epinephrine 0.3 mg/0.3 mL injection, auto-injector 1 mg IM PRN PRN Allergic Reaction 06/14/21 [History Last Taken Unknown] prazosin 1 mg capsule 1 mg PO TID 06/14/21 [History Last Taken Unknown] aripiprazole 2 mg tablet 5 mg PO QHS 07/31/21 [History Last Taken Unknown] fluoxetine 10 mg capsule 3 cap PO DAILY 10/06/21 [History Last Taken Unknown] omeprazole 40 mg capsule,delayed release 40 mg PO DAILY #30 caps 12/08/21 [Rx Last Taken Unknown] diclofenac sodium 75 mg tablet,delayed release 75 mg PO BID PRN pain 01/04/22 [History Last Taken Unknown] medroxyprogesterone 150 mg/mL intramuscular suspension (Depo-Provera) 150 mg IM Q6W 01/04/22 [History Last Taken Unknown] topiramate 100 mg tablet 125 mg PO QHS 01/04/22 [History Last Taken Unknown] sucralfate 1 gram tablet (Carafate) 1 g PO Q6H 2 weeks #56 tabs 02/08/22 [Rx Last Taken Unknown] Allergy/AdvReac Type Severity Reaction Status Date / Time gabapentin Allergy Rash Verified 02/27/22 17:21 sertraline [From Zoloft] Allergy Anaphylaxis Verified 02/27/22 17:21 silicone Allergy Rash Verified 02/27/22 17:21 lactose AdvReac Upset Verified 02/27/22 17:21 Stomach NASAL SPRAY Allergy Hives Uncoded 02/27/22 17:21 Family History Father Anxiety Depression Asthma Hypertension Mother Asthma Diabetes Anxiety Depression CAD (coronary artery disease) Myocardial infarction, Onset Age: 42 Brother Oleksandr-Danlos syndrome Grandmother Myocardial infarction, Onset Age: 41 Grandfather Myocardial infarction, Onset Age: 38 Surgical History History of colonoscopy History of esophagogastroduodenoscopy (EGD) Hx of laparoscopy Social History household members: none Smoking Status: Current every day smoker tobacco type: e-cigarettes alcohol intake: current alcohol intake frequency: holidays/special occasions only substance use type: does not use caffeine: Yes Type: carbonated beverages, coffee and tea ROS ROS ED Review of Systems ROS Unobtainable: other Constitutional Constitutional ED: Reports lethargy; Denies chills, fever(s), sweats or weight loss Eyes Eyes: Denies blurry vision, change in vision or diplopia ENT ENT ED: Denies rhinorrhea or sore throat Cardiovascular Cardiovascular: Reports chest pain and racing heartbeat; Denies orthopnea Respiratory/Chest Respiratory/Chest: Reports dyspnea and dyspnea on exertion; Denies cough, orthopnea or sputum Gastrointestinal Gastrointestinal: Denies abdominal pain, diarrhea, nausea or vomiting Genitourinary Genitourinary ED: Denies dysuria, hematuria or urinary frequency Musculoskeletal Musculoskeletal: Denies arthralgias, back pain, myalgias or neck pain Integumentary Denies abscess, Abrasions or rash Neurologic Neurologic: Reports headache(s); Denies weakness Psychiatric Psychiatric: Denies anxiety, depression or suicidal thoughts Endocrine Endocrinology: Denies polydipsia, polyphagia or polyuria Hematologic/Lymphatic Hematologic/Lymphatic: Denies easy bleeding, easy bruising or lymphadenopathy Allergic/Immunologic Allergic/Immunologic ED: Denies mouth swelling, tongue swelling or urticaria EXAM Physical Exam Const Vital Signs: 02/27/22 17:21 02/27/22 17:51 02/27/22 18:35 Temperature 98.5 F Temperature Source Temporal Pulse Rate 93 Pulse Rate [Lying] 71 Pulse Rate [Sitting (for 1 minute prior to obtaining)] 72 Pulse Rate [Standing (for 1 minute prior to obtaining)] 81 Respiratory Rate 12 Respiratory Effort Non-Labored Blood Pressure 121/76 H Blood Pressure [Lying] 115/72 Blood Pressure [Sitting (for 1 minute prior to obtaining)] 117/78 Blood Pressure [Standing (for 1 minute prior to obtaining)] 130/77 H Blood Pressure Mean 91 Blood Pressure Mean [Lying] 86 Blood Pressure Mean [Sitting (for 1 minute prior to obtaining)] 91 Blood Pressure Mean [Standing (for 1 minute prior to obtaining)] 94 Pulse Ox 97 Oxygen Delivery Method Room Air Positive well nourished and well developed General Appearance ED: well developed and NAD HEENT Reports TM's clear and moist mucous membranes normocephalic and atraumatic; Negative for trauma or tenderness Tympanic Membrane ED: Yes TM's clear Eyes PERRL and EOMs intact bilaterally General Eye ED: Negative for pale conjunctiva or scleral icterus Neck no lymphadenopathy, supple and no JVD General: Negative for tenderness Chest Wall inspection of chest normal and palpation of chest normal Chest: Negative for tenderness Resp normal respiratory effort and clear to auscultation bilaterally Effort and Inspection: Negative for respiratory distress or pain with movement Auscultation: Negative for rhonchi, wheezes or diminished lung sounds Cardio regular rate, regular rhythm, S1 normal heart sound, S2 normal heart sound and no murmurs Peripheral Pulses: pulses 2+ throughout GI normal to inspection, nondistended, normoactive bowel sounds, soft to palpation, non-tender, non-distended and no masses Back/Spine no CVA tenderness and no thoracic nor lumbar tenderness Extremity normal to inspection General Extremety ED: Negative for edema General Extremity: Negative for edema Neuro oriented x3, CN's II-XII intact bilaterally, no sensory deficits noted and gait normal Neuro Narrative: Finger-nose and heel dominguez testing within normal limits, negative Romberg, negative pronator drift, fundi benign. Hallpike maneuver was negative for nystagmus. Sensorium / Orientation: awake, alert, oriented to person, oriented to place and oriented to time Motor Exam: strength 5/5 throughout and strength abnormal Psych mental status grossly normal Skin no rashes or lesions noted and no wounds MDM MDM MDM Narrative Medical decision making narrative: IV established on arrival. Patient was medicated with Reglan, Benadryl, and Toradol and she felt markedly improved. At this point etiology of symptoms is unclear. Suspect she may have had a migraine. The left-sided pain is unclear but clinically I do not feel there is anything emergent or catastrophic. Patient otherwise looks well. She is comfortable with plan of just following up with her primary care physician and has an appointment with cardiology next month. Lab Data Attestation: I reviewed the patient's lab results. Labs: Laboratory Results - last 24 hr 02/27/22 02/27/22 02/27/22 18:00 18:00 18:00 WBC 6.4 RBC 5.10 Hgb 12.6 Hct 39.0 MCV 76.5 L MCH 24.7 L MCHC 32.3 RDW Std Deviation 39.9 RDW Coeff of Anoop 14.5 Plt Count 431 MPV 8.7 D-Dimer Quant (PE/DVT) 0.36 Sodium 140 Potassium 3.6 Chloride 110 H Carbon Dioxide 23.0 Anion Gap 7 BUN 11 Creatinine 0.84 Estim Creat Clear Calc 91.48 Est GFR (MDRD) Af Amer 109 Est GFR (MDRD) Non-Af 90 BUN/Creatinine Ratio 13.0 Glucose 95 Calcium 8.8 EKG Initial EKG: Attestation: I personally reviewed and interpreted this EKG as follows: Comments: Sinus rhythm with a rate of 71 bpm with occasional PACs Discharge Plan Triage Chief Complaint: Dizziness ED Provider: Loree Funes Dx/Rx/DC Orders Clinical Impression: Headache, Dizziness, Dyspnea, Pain Instructions: ED Dizziness, Uncertain Cause, ED Dyspnea, ED, Migraine (Classical) Prescriptions: No Action diclofenac sodium 75 mg tablet,delayed release (DR/EC) 75 mg PO BID PRN (Reason: pain) topiramate 100 mg tablet 125 mg PO QHS medroxyprogesterone [Depo-Provera] 150 mg/mL suspension 150 mg IM Q6W Label Comments: INJECT 1ML INTRAMUSCULARILY EVERY 12 WEEKS prazosin 1 mg capsule 1 mg PO TID Label Comments: take 1 capsule by mouth at bedtime epinephrine 0.3 mg/0.3 mL auto-injector 1 mg IM PRN PRN (Reason: Allergic Reaction) Label Comments: INJECT INTO THE MUSCLE NEEDED FOR ANAPHYLAXIS REACTION albuterol sulfate 90 mcg/actuation HFA aerosol inhaler 2 puff INHALATION PRN PRN (Reason: Wheezing) Label Comments: inhale 2 puffs by mouth and INTO THE LUNGS every 4 hours if neede... (REFER TO PRESCRIPTION NOTES). aripiprazole 2 mg tablet 5 mg PO QHS fluoxetine 10 mg capsule 3 cap PO DAILY omeprazole 40 mg capsule,delayed release(DR/EC) 40 mg PO DAILY Qty: 30 0RF sucralfate [Carafate] 1 gram tablet 1 g PO Q6H 14 Days Qty: 56 0RF Primary Care Provider: [facility] Sury Queen Referrals: [facility] Sury Queen [Primary Care Provider] - 3-5 Days Disposition Disposition: Home, Self Care
[2022-02-27] MEDS: Metoclopramide 10 MG/2 ML Vial IV (18:08)
[2022-02-27] MEDS: Ketorolac 30 MG/ML Syringe IV (18:08)
[2022-02-27] MEDS: 0.9% Normal Saline 1,000 ML 1000 ML IV (18:08)
[2022-02-27] MEDS: DiphenhydrAMINE 50 MG/ML Syringe 25 MG IV (18:08)
[2022-02-27 18:16] LABS: Hemoglobin 12.6 g/dL (12.0-15.0); Mean Corp Hgb Conc 32.3 g/dL (32-36); Mean Corpuscular Hgb 24.7 pg (27.0-32.0); Mean Corpuscular Volume 76.5 fL (81-99); Mean Platelet Vol. 8.7 fl (6.2-12.0); Platelet Count 431 K/mm3 (150-450); RBC Distribution Width CV 14.5 % (11.6-14.6); RBC Distribution Width SD 39.9 fl (35.1-43.9); White Blood Count 6.4 K/mm3 (4.4-11.0)
[2022-02-27 18:22] LABS: D-Dimer Quantitative (DVT/PE) 0.36 FEU/ug/m (0.27-0.49)
[2022-02-27 18:35] VITALS: BP 115/72; BP 117/78; BP 130/77; PULSE 71; PULSE 72; PULSE 81
[2022-02-27 18:36] LABS: Anion Gap 7 (5-15); BUN 11 mg/dL (7-18); Calcium,Total 8.8 mg/dL (8.5-10.1); Chloride 110 mmol/L (98-107); Creatinine, Serum 0.84 mg/dL (0.55-1.02); EST Glomerular Filtration Rate 90 mL/min (>60); Est Glom Filt Rate - Afr Amer 109 mL/min (>60); Estimated Creatinine Clearance 91.48 ml/min; Glucose 95 mg/dL (74-106); Potassium 3.6 mmol/L (3.5-5.1); Sodium Level 140 mmol/L (136-145)
[2022-02-27 19:29] VITALS: BP 129/66; PULSE 84; RESP 16; O2SAT 98
== END 2022-02-27 19:31 | disposition home or self-care (01) ==
PROVIDERS: Emergency Provider Emergency Medicine; Visit Provider Emergency Medicine
DX: R42 Dizziness and giddiness (principal); F20.9 Schizophrenia, unspecified; R51.9 Headache, unspecified; R06.00 Dyspnea, unspecified; R07.9 Chest pain, unspecified; R11.0 Nausea; F43.10 Post-traumatic stress disorder, unspecified; G90.A Postural orthostatic tachycardia syndrome [POTS]; F41.9 Anxiety disorder, unspecified; J45.909 Unspecified asthma, uncomplicated; F32.A Depression, unspecified; K21.9 Gastro-esophageal reflux disease without esophagitis; F42.9 Obsessive-compulsive disorder, unspecified; F17.210 Nicotine dependence, cigarettes, uncomplicated; Z79.899 Other long term (current) drug therapy
CPT/HCPCS: 80048; 85027; 85379; 93005; 96361; 96374; 96375; 99283; J7030

== ENCOUNTER → 2022-02-28 | Outpatient (CLI) | payer BC, MEDICAID, SELFPAY ==
[2022-02-28 13:39] LABS: Erythrocyte Sedimentation Rate 19 mm/hr (0-30)
[2022-02-28 14:22] LABS: CRP < 2.90 mg/L (0.0-3.0); Rheumatoid Factor < 10.0 IU/mL (<15); Thyroid Stim Hormone (TSH) 1.68 uIU/mL (0.358-3.74)
[2022-03-02 20:27] LABS: ANTINUCLEAR ANTIBODIES DIRECT Negative (Negative)
[2022-03-05 21:43] LABS: Pancreatic Elastase, Fecal 410 (>200)
[2022-03-06 16:16] LABS: Calprotectin, Stool 49 ug/g (0-120); Fats, Neutral Normal (.); Fats, Total Increased (.)
== END | disposition home or self-care (01) ==
LOC: LAB 11:46
PROVIDERS: Internal Medicine Gastroenterology
DX: M25.50 Pain in unspecified joint (principal)
CPT/HCPCS: 36415; 82653; 82705; 83630; 83993; 84443; 85652; 86038; 86140; 86431; 87506

== ENCOUNTER 2022-03-19 22:02 | Emergency (ER) | payer BC, MEDICAID, SELFPAY ==
[2022-03-19 22:04] VITALS: BP 150/88; PULSE 93; RESP 18; TEMP 36.2; BMI 28.5
[2022-03-19 22:07] VITALS: BP 150/88; PULSE 93; RESP 18; TEMP 36.2
--- NOTE | 2022-03-19 22:42 | ED.VIS.BACK ---
HPI History of Present Illness Chief Complaint: Back Narrative Narrative: Patient presents with back pain. This is chronic but this morning she started having radiation of the pain to her leg. She has no bowel or bladder compromise. She has no urinary retention symptoms. She is denying saddle anesthesia. No fevers or chills or new trauma. [facility] Medical History Anxiety Asthma Depression Diarrhea Endometriosis GERD (gastroesophageal reflux disease) Migraine OCD (obsessive compulsive disorder) Pelvic pain POTS (postural orthostatic tachycardia syndrome) PTSD (post-traumatic stress disorder) Schizophrenia Tachycardia Upper abdominal pain Home Medications albuterol sulfate 90 mcg/actuation aerosol inhaler 2 puff inhalation PRN PRN Wheezing 06/14/21 [History Last Taken Unknown] epinephrine 0.3 mg/0.3 mL injection, auto-injector 1 mg IM PRN PRN Allergic Reaction 06/14/21 [History Last Taken Unknown] prazosin 1 mg capsule 1 mg PO TID 06/14/21 [History Last Taken Unknown] aripiprazole 2 mg tablet 5 mg PO QHS 07/31/21 [History Last Taken Unknown] fluoxetine 10 mg capsule 3 cap PO DAILY 10/06/21 [History Last Taken Unknown] omeprazole 40 mg capsule,delayed release 40 mg PO DAILY #30 caps 12/08/21 [Rx Last Taken Unknown] diclofenac sodium 75 mg tablet,delayed release 75 mg PO BID PRN pain 01/04/22 [History Last Taken Unknown] medroxyprogesterone 150 mg/mL intramuscular suspension (Depo-Provera) 150 mg IM Q6W 01/04/22 [History Last Taken Unknown] topiramate 100 mg tablet 125 mg PO QHS 01/04/22 [History Last Taken Unknown] sucralfate 1 gram tablet (Carafate) 1 g PO Q6H 2 weeks #56 tabs 02/08/22 [Rx Last Taken Unknown] hydrocodone-acetaminophen 5-325mg 5mg-325mg 1 tab PO TID PRN pain 3 days #7 tabs 03/19/22 [Rx Last Taken Unknown] prednisone 20 mg tablet 40 mg PO DAILY #6 tabs 03/19/22 [Rx Last Taken Unknown] Allergy/AdvReac Type Severity Reaction Status Date / Time gabapentin Allergy Rash Verified 02/27/22 17:21 sertraline [From Zoloft] Allergy Anaphylaxis Verified 02/27/22 17:21 silicone Allergy Rash Verified 02/27/22 17:21 lactose AdvReac Upset Verified 02/27/22 17:21 Stomach NASAL SPRAY Allergy Hives Uncoded 02/27/22 17:21 Family History Father Anxiety Depression Asthma Hypertension Mother Asthma Diabetes Anxiety Depression CAD (coronary artery disease) Myocardial infarction, Onset Age: 42 Brother Oleksandr-Danlos syndrome Grandmother Myocardial infarction, Onset Age: 41 Grandfather Myocardial infarction, Onset Age: 38 Surgical History History of colonoscopy History of esophagogastroduodenoscopy (EGD) Hx of laparoscopy Social History household members: none Smoking Status: Current every day smoker tobacco type: e-cigarettes alcohol intake: current alcohol intake frequency: holidays/special occasions only substance use type: does not use caffeine: Yes Type: carbonated beverages, coffee and tea ROS ROS ED ROS Narrative Past medical history: Reviewed, includes chronic pelvic pain, PTSD, bipolar, gastroparesis, chronic back pain, POTS Medications: Reviewed Social history: Noncontributory Review of systems: All systems negative except as indicated ENT: No upper airway congestion, normal voice Neck: No neck pain Cardiovascular: No chest pain Respiratory: No shortness of breath or cough Gastrointestinal: No abdominal pain, nausea vomiting or diarrhea Genitourinary: No dysuria Musculoskeletal: Back pain as in HPI Skin: No rash Neurological: Right leg radiculopathy. No weakness or paresthesias. Psych: No recent behavioral changes Hematologic: No easy bleeding or easy bruising EXAM Physical Exam Narrative Exam Narrative: Vitals reviewed General: Patient appears in some discomfort HEENT: Moist mucous membranes Neck: Nontender Cardiovascular normal heart rate Respiratory: No respiratory difficulty speaking in full sentences Abdomen: Soft and nontender, there is no suprapubic mass or pain Back: There is some tenderness over the lumbar region, pain is spinal and paraspinal both. Most of the pain however is left paraspinal lower region no flank pain. Extremities: Moves all extremities without joint pain or signs of trauma Neurological: There is normal plantar flexion and dorsiflexion of both feet and great toes. Patellar and Achilles reflexes are normal. Normal strength and sensation. Straight leg test is positive on the left. Skin: No rash Psychiatric: Slightly anxious. Const Vital Signs: 03/19/22 22:04 03/19/22 22:07 Temperature 97.2 F L 97.2 F L Temperature Source Temporal Temporal Pulse Rate 93 93 Respiratory Rate 18 18 Blood Pressure 150/88 H 150/88 H Blood Pressure Mean 108 108 MDM MDM MDM Narrative Medical decision making narrative: Patient does not have any red flags but she does have radicular symptoms. I will treat her with analgesia. I will give her steroids. If anything changes she is to return. Discharge Plan Triage Chief Complaint: Back ED Provider: Sumanth Garcia Dx/Rx/DC Orders Clinical Impression: Back pain, Sciatica Instructions: ED Sciatica Prescriptions: New hydrocodone-acetaminophen 5-325 mg tablet 1 tab PO TID PRN (Reason: pain) 3 Days Qty: 7 0RF prednisone 20 mg tablet 40 mg PO DAILY Qty: 6 0RF No Action diclofenac sodium 75 mg tablet,delayed release (DR/EC) 75 mg PO BID PRN (Reason: pain) topiramate 100 mg tablet 125 mg PO QHS medroxyprogesterone [Depo-Provera] 150 mg/mL suspension 150 mg IM Q6W Label Comments: INJECT 1ML INTRAMUSCULARILY EVERY 12 WEEKS prazosin 1 mg capsule 1 mg PO TID Label Comments: take 1 capsule by mouth at bedtime epinephrine 0.3 mg/0.3 mL auto-injector 1 mg IM PRN PRN (Reason: Allergic Reaction) Label Comments: INJECT INTO THE MUSCLE NEEDED FOR ANAPHYLAXIS REACTION albuterol sulfate 90 mcg/actuation HFA aerosol inhaler 2 puff INHALATION PRN PRN (Reason: Wheezing) Label Comments: inhale 2 puffs by mouth and INTO THE LUNGS every 4 hours if neede... (REFER TO PRESCRIPTION NOTES). aripiprazole 2 mg tablet 5 mg PO QHS fluoxetine 10 mg capsule 3 cap PO DAILY omeprazole 40 mg capsule,delayed release(DR/EC) 40 mg PO DAILY Qty: 30 0RF sucralfate [Carafate] 1 gram tablet 1 g PO Q6H 14 Days Qty: 56 0RF [facility] [Primary Care Provider[facility] - 3-5 Days Disposition Disposition: Home, Self Care
[2022-03-19] MEDS: predniSONE 20 MG Tablet 40 MG PO (22:51)
[2022-03-19] MEDS: Ketorolac 30 MG/ML Syringe IM (22:52)
[2022-03-19] MEDS: Ondansetron ODT 4 MG Tablet PO (23:27)
[2022-03-19 23:30] VITALS: BP 142/88; PULSE 93; RESP 16; O2SAT 97
== END 2022-03-19 23:30 | disposition home or self-care (01) ==
PROVIDERS: Emergency Provider Emergency Medicine; Visit Provider Emergency Medicine
DX: M54.32 Sciatica, left side (principal); F17.290 Nicotine dependence, other tobacco product, uncomplicated; K21.9 Gastro-esophageal reflux disease without esophagitis; Z79.899 Other long term (current) drug therapy
CPT/HCPCS: 96372; 99284

== ENCOUNTER 2022-03-25 18:08 | Emergency (ER) | payer BC, MEDICAID, SELFPAY ==
[2022-03-25 18:09] VITALS: BP 129/86; PULSE 97; RESP 18; TEMP 35.8; O2SAT 99; BMI 27.4
--- NOTE | 2022-03-25 18:22 | EX.ED.DYSGE1 ---
HPI History of Present Illness Chief Complaint: Abd Pain Narrative Narrative: Patient presents with left upper quadrant pain. She states she has been having some pain in this area and her back for about a week. When she was here the other day it was more in her back and down lower. She has never had radicular symptoms. She states now she is getting pain in the upper abdomen mostly in the left upper quadrant. It was sometimes radiating around the side to her left back. No urinary symptoms. She does have a long history of abdominal pain mostly in the upper abdomen. She states she has had colonoscopy and EGD about a year ago. They have never found the source of this. She does take omeprazole most days. She has had some nausea with this. She vomited 1 time. No blood. She states she has been constipated recently and has chronic problems with constipation. She had not moved her bowels for about 2 weeks and then did move them earlier this week. The last time she moved 1 was about 2 to 3 days ago. No blood was seen. She has no vaginal discharge or bleeding. No dysuria frequency or urgency. Nothing clearly makes this better or worse. She is on diclofenac for pain but has not been taking large amounts of it. She has chronic reflux and GERD and acid taste in the mouth but does not think it is worse than her normal. [facility] Medical History Anxiety Asthma Depression Diarrhea Endometriosis GERD (gastroesophageal reflux disease) Migraine OCD (obsessive compulsive disorder) Pelvic pain POTS (postural orthostatic tachycardia syndrome) PTSD (post-traumatic stress disorder) Schizophrenia Tachycardia Upper abdominal pain Home Medications albuterol sulfate 90 mcg/actuation aerosol inhaler 2 puff inhalation PRN PRN Wheezing 06/14/21 [History Last Taken Unknown] epinephrine 0.3 mg/0.3 mL injection, auto-injector 1 mg IM PRN PRN Allergic Reaction 06/14/21 [History Last Taken Unknown] aripiprazole 2 mg tablet 5 mg PO QHS 07/31/21 [History Last Taken Unknown] fluoxetine 10 mg capsule 3 cap PO DAILY 10/06/21 [History Last Taken Unknown] omeprazole 40 mg capsule,delayed release 40 mg PO DAILY #30 caps 12/08/21 [Rx Last Taken Unknown] diclofenac sodium 75 mg tablet,delayed release 75 mg PO BID PRN pain 01/04/22 [History Last Taken Unknown] medroxyprogesterone 150 mg/mL intramuscular suspension (Depo-Provera) 150 mg IM Q6W 01/04/22 [History Last Taken Unknown] topiramate 100 mg tablet 125 mg PO QHS 01/04/22 [History Last Taken Unknown] prazosin 1 mg capsule 2 mg PO DAILY 03/19/22 [History Last Taken Unknown] prednisone 20 mg tablet 40 mg PO DAILY #6 tabs 03/19/22 [Rx Last Taken Unknown] trazodone 50 mg tablet 50 mg PO QHS 03/19/22 [History Last Taken Unknown] dicyclomine 20 mg tablet 20 mg PO TID PRN cramps #14 tabs 03/25/22 [Rx Last Taken Unknown] promethazine 25 mg tablet 25 mg PO TID PRN nausea and vomiting #10 tabs 03/25/22 [Rx Last Taken Unknown] Allergy/AdvReac Type Severity Reaction Status Date / Time gabapentin Allergy Rash Verified 03/25/22 18:10 sertraline [From Zoloft] Allergy Anaphylaxis Verified 03/25/22 18:10 silicone Allergy Rash Verified 03/25/22 18:10 lactose AdvReac Upset Verified 03/25/22 18:10 Stomach NASAL SPRAY Allergy Hives Uncoded 03/25/22 18:10 Family History Father Anxiety Depression Asthma Hypertension Mother Asthma Diabetes Anxiety Depression CAD (coronary artery disease) Myocardial infarction, Onset Age: 42 Brother Oleksandr-Danlos syndrome Grandmother Myocardial infarction, Onset Age: 41 Grandfather Myocardial infarction, Onset Age: 38 Surgical History History of colonoscopy History of esophagogastroduodenoscopy (EGD) Hx of laparoscopy Social History household members: none Smoking Status: Current every day smoker tobacco type: e-cigarettes alcohol intake: current alcohol intake frequency: holidays/special occasions only substance use type: does not use caffeine: Yes Type: carbonated beverages, coffee and tea ROS ROS ED Constitutional Constitutional ED: Denies chills or fever(s) Eyes Eyes: Denies change in vision ENT ENT ED: Reports rhinorrhea; Denies sore throat Cardiovascular Cardiovascular: Denies chest pain, palpitations or racing heartbeat Respiratory/Chest Respiratory/Chest: Denies cough, dyspnea or sputum Gastrointestinal Gastrointestinal: Reports abdominal pain, constipation and nausea; Denies diarrhea Genitourinary Genitourinary ED: Denies dysuria, hematuria or urinary frequency Musculoskeletal Musculoskeletal: Reports other Details: Patient states pain radiates from the front around to her back but she does not have primary back pain. It is more in the left upper quadrant. ; Denies neck pain Integumentary Denies rash Neurologic Neurologic: Reports other Details: No weakness bowel bladder dysfunction. Week ; Denies paresthesias or weakness Psychiatric Psychiatric: Reports anxiety Endocrine Endocrinology: Denies polydipsia or polyuria Hematologic/Lymphatic Hematologic/Lymphatic: Denies easy bleeding or easy bruising Allergic/Immunologic Allergic/Immunologic ED: Denies urticaria EXAM Physical Exam Const Vital Signs: 03/25/22 18:09 Temperature 96.5 F L Temperature Source Temporal Pulse Rate 97 Respiratory Rate 18 Blood Pressure 129/86 H Blood Pressure Mean 100 Pulse Ox 99 Oxygen Delivery Method Room Air Positive well nourished and well developed General Appearance ED: well developed and NAD; Negative for cyanotic or diaphoretic HEENT Reports moist mucous membranes Eyes General Eye ED: Negative for pale conjunctiva or scleral icterus Neck no JVD Resp normal respiratory effort and clear to auscultation bilaterally Resp Narrative: No pain with a deep breath. Cardio regular rate, regular rhythm and no murmurs GI normal to inspection, nondistended, normoactive bowel sounds GI Narrative: Abdomen is soft nondistended. I see no rashes or skin changes. She describes pain in the left upper quadrant but I am not even getting any tenderness. She has no left CVA tenderness. Overall this exam is surprisingly benign considering her symptoms. Back/Spine no CVA tenderness Back/Spine Narrative: There is no CVA or paraspinal tenderness. No rashes. No skin changes. No spasm. Extremity normal to inspection Neuro Sensorium / Orientation: alert; Negative for orientation impaired, lethargic or stuporous Psych mental status grossly normal Skin no rashes or lesions noted MDM MDM MDM Narrative Medical decision making narrative: Patient CBC including white count hemoglobin and platelets are normal. Electrolytes are normal. Liver function test normal. is negative. Urine has 10-25 white cells but negative nitrites. Urine is clear. I talked to the patient again. She is not having any odor to the urine. She is having no discomfort with urination. Not having frequency. She states occasionally she has mild urgency but she has had that in the past 2. This is not a big change from her history. Therefore, we will send her urine off for culture but hold off on antibiotics at this time. Patient is feeling better. Zofran IV fluids helped here. She states she has Zofran at home but it does not work as well p.o. I will write for some Phenergan. We will write for Bentyl. She has an appointment with her executive vice president of sales tomorrow. I explained she should keep that appointment. Lab Data Attestation: I reviewed the patient's lab results. Labs: Laboratory Results - last 24 hr 03/25/22 03/25/22 03/25/22 18:20 18:20 18:20 WBC 8.2 RBC 5.51 H Hgb 13.9 Hct 42.2 MCV 76.6 L MCH 25.2 L MCHC 32.9 RDW Std Deviation 38.7 RDW Coeff of Anoop 14.0 Plt Count 404 MPV 8.6 Immature Gran % (Auto) 0.100 Neut % (Auto) 55.8 Lymph % (Auto) 36.7 [place] % (Auto) 6.1 Eos % (Auto) 1.1 Baso % (Auto) 0.2 Absolute Neuts (auto) 4.6 Absolute Lymphs (auto) 3.00 Nucleated RBC % 0 Sodium 138 Potassium 3.7 Chloride 110 H Carbon Dioxide 22.0 Anion Gap 6 BUN 15 Creatinine 0.78 Estim Creat Clear Calc 98.52 Est GFR (MDRD) Af Amer 119 Est GFR (MDRD) Non-Af 98 BUN/Creatinine Ratio 19.1 Glucose 91 Calcium 9.0 Total Bilirubin 0.20 AST 15 ALT 22 Alkaline Phosphatase 112 Total Protein 8.0 Albumin 3.6 Globulin 4.4 H Albumin/Globulin Ratio 0.8 L Lipase 95 Serum , Qual NEGATIVE Urine Color Urine Clarity Urine pH Ur Specific [place] Urine Protein Urine Glucose (UA) Urine Ketones Urine Occult Blood Urine Nitrite Urine Bilirubin Urine Urobilinogen Ur Leukocyte Esterase Urine RBC Urine WBC Ur Squamous Epith Cells Urine Bacteria Urine Mucus 03/25/22 18:31 WBC RBC Hgb Hct MCV MCH MCHC RDW Std Deviation RDW Coeff of [place] Plt Count MPV Immature Gran % (Auto) Neut % (Auto) Lymph % (Auto) [place] % (Auto) Eos % (Auto) Baso % (Auto) Absolute Neuts (auto) Absolute Lymphs (auto) Nucleated RBC % Sodium Potassium Chloride Carbon Dioxide Anion Gap BUN Creatinine Estim Creat Clear Calc Est GFR (MDRD) Af Amer Est GFR (MDRD) Non-Af BUN/Creatinine Ratio Glucose Calcium Total Bilirubin AST ALT Alkaline Phosphatase Total Protein Albumin Globulin Albumin/Globulin Ratio Lipase Serum , Qual Urine Color Yellow Urine Clarity Clear Urine pH 5.0 Ur Specific [place] 1.025 Urine Protein 30 H Urine Glucose (UA) Normal Urine Ketones 5 H Urine Occult Blood 10 H Urine Nitrite Negative Urine Bilirubin Negative Urine Urobilinogen Normal Ur Leukocyte Esterase 500 H Urine RBC 0 SEEN Urine WBC 10-25 SEEN Ur Squamous Epith Cells 0-5 SEEN Urine Bacteria 1+ Urine Mucus 0 SEEN Radiography Diagnostic Testing: Clinical Impression(s) from Imaging Studies Acute Abdomen Series 03/25/22 18:50 IMPRESSION: Normal x-ray examination of the chest, abdomen, and pelvis. Electronically Signed: Zack Barrett MD at 19:15 EST , 4 view abdominal series looked at by me and read by radiology shows no acute process. There is mild increased stool but not significant amounts. Discharge Plan Triage Chief Complaint: Abd Pain ED Provider: Chaz Toussaint Dx/Rx/DC Orders Clinical Impression: Left upper quadrant abdominal pain, Nausea Instructions: ED Abdominal Pain Unkn Cause Fem Prescriptions: New dicyclomine 20 mg tablet 20 mg PO TID PRN (Reason: cramps) Qty: 14 0RF promethazine 25 mg tablet 25 mg PO TID PRN (Reason: nausea and vomiting) Qty: 10 0RF No Action diclofenac sodium 75 mg tablet,delayed release (DR/EC) 75 mg PO BID PRN (Reason: pain) topiramate 100 mg tablet 125 mg PO QHS medroxyprogesterone [Depo-Provera] 150 mg/mL suspension 150 mg IM Q6W Label Comments: INJECT 1ML INTRAMUSCULARILY EVERY 12 WEEKS epinephrine 0.3 mg/0.3 mL auto-injector 1 mg IM PRN PRN (Reason: Allergic Reaction) Label Comments: INJECT INTO THE MUSCLE NEEDED FOR ANAPHYLAXIS REACTION albuterol sulfate 90 mcg/actuation HFA aerosol inhaler 2 puff INHALATION PRN PRN (Reason: Wheezing) Label Comments: inhale 2 puffs by mouth and INTO THE LUNGS every 4 hours if neede... (REFER TO PRESCRIPTION NOTES). aripiprazole 2 mg tablet 5 mg PO QHS fluoxetine 10 mg capsule 3 cap PO DAILY omeprazole 40 mg capsule,delayed release(DR/EC) 40 mg PO DAILY Qty: 30 0RF prednisone 20 mg tablet 40 mg PO DAILY Qty: 6 0RF trazodone 50 mg tablet 50 mg PO QHS Label Comments: TAKE 1 OR 2 TABLETS BY MOUTH AT BEDTIME prazosin 1 mg capsule 2 mg PO DAILY Label Comments: take 1 capsule by mouth twice a day [facility] Referrals: Damir Hdz DO [Med Staff - Active Staff] - 1 Day (Follow-up tomorrow as scheduled.) [facility] - Disposition Disposition: Home, Self Care
[2022-03-25] MEDS: Ondansetron 4 MG/2 ML Vial IV (18:33)
[2022-03-25] MEDS: 0.9% Normal Saline 1,000 ML 1000 ML IV (18:33)
[2022-03-25 18:36] LABS: Mucous, Urine 0 SEEN /hpf (<or=2+); Red Blood Cells-Urine 0 SEEN /hpf (0-5)
[2022-03-25 18:43] LABS: Absolute Neutrophil Count 4.6 X10^3/uL (2.0-7.7); Basophil# 0.02 X10^3/uL; Basophil% 0.2 % (0-1); Eosinophil# 0.09 X10^3/uL; Eosinophils% 1.1 % (0-5); Hematocrit 42.2 % (37-47); Hemoglobin 13.9 g/dL (12.0-15.0); Lymphocyte % 36.7 % (19-41); Mean Corp Hgb Conc 32.9 g/dL (32-36); Mean Corpuscular Hgb 25.2 pg (27.0-32.0); Mean Corpuscular Volume 76.6 fL (81-99); Mean Platelet Vol. 8.6 fl (6.2-12.0); Monocyte% 6.1 % (0-10); NRBC Flagged by Analyzer 0 % (0-5); Neutrophil # 4.55 X10^3/uL (2.7-7.7); Neutrophil % 55.8 % (47-70); Platelet Count 404 K/mm3 (150-450); RBC Distribution Width SD 38.7 fl (35.1-43.9); Red Blood Count 5.51 M/mm3 (4.2-5.4); White Blood Count 8.2 K/mm3 (4.4-11.0)
--- NOTE | 2022-03-25 18:50 | RAD_ITS ---
STUDY: X-RAY - ACUTE ABDOMINAL SERIES REASON FOR EXAM: Female, 22 years old. Pain TECHNIQUE: Single view of the chest. Supine, and erect view(s) of the abdomen were obtained. COMPARISON: None. FINDINGS: The lungs are clear and expanded. Normal size heart. Normal mediastinum and dennis. Normal visualized pulmonary arteries. Normal visualized aortic arch and descending thoracic aorta. There is a non-specific bowel gas pattern. The soft tissue structures of the abdomen and pelvis are unremarkable. Normal visualized osseous structures. RAD/Acute Abdomen Inc Chest IMPRESSION: Normal x-ray examination of the chest, abdomen, and pelvis. Electronically Signed: Zack Barrett MD at 19:15 EST ,
[2022-03-25 18:52] LABS: Internal QC Validated? YES +Cl - CLEAR BKGD; Pregnancy, Serum, hCG Quali. NEGATIVE Negative
[2022-03-25 18:53] LABS: Color, Urine Yellow (Yellow); Glucose, Dipstick Normal (Normal); Ketone-Dipstick 5 mg/dl (Negative); Leukocyte Esterase-Dipstick 500 /ul (Negative); Nitrite-Dipstick Negative (Negative); Occult Blood-Urine 10 /ul (Negative); Protein-Dipstick 30 mg/dl (Negative); Specific Gravity, Urine 1.025 (1.002-1.030); Urine Bilirubin Dipstick Negative (Negative); Urine Clarity Clear (Clear); Urine Urobilinogen Normal (Normal)
[2022-03-25 18:56] LABS: ALB/GLOB Ratio 0.8 RATIO (0.9-2.4); AST(SGOT) 15 U/L (15-37); Alanine Aminotransfer ALT/SGPT 22 U/L (13-56); Albumin, Serum 3.6 g/dL (3.2-5.0); Alkaline Phosphatase 112 U/L (45-117); Anion Gap 6 (5-15); BUN 15 mg/dL (7-18); BUN/Creat Ratio 19.1 RATIO (10-20); Chloride 110 mmol/L (98-107); Creatinine, Serum 0.78 mg/dL (0.55-1.02); EST Glomerular Filtration Rate 98 mL/min (>60); Est Glom Filt Rate - Afr Amer 119 mL/min (>60); Estimated Creatinine Clearance 98.52 ml/min; Globulin 4.4 g/dL (2.2-4.2); Glucose 91 mg/dL (74-106); Lipase 95 U/L (73-393); Potassium 3.7 mmol/L (3.5-5.1); Sodium Level 138 mmol/L (136-145)
[2022-03-25 19:10] LABS: Bacteria 1+ /hpf (None Seen); Squamous Epithelial Cells - UA 0-5 SEEN /hpf (5-10); White Blood Cells 10-25 SEEN /hpf (0-5)
== END 2022-03-25 19:40 | disposition home or self-care (01) ==
PROVIDERS: Emergency Provider Emergency Medicine; Visit Provider Emergency Medicine
DX: R10.12 Left upper quadrant pain (principal); R11.0 Nausea; F17.210 Nicotine dependence, cigarettes, uncomplicated; J45.909 Unspecified asthma, uncomplicated; F42.9 Obsessive-compulsive disorder, unspecified; F41.9 Anxiety disorder, unspecified; F32.A Depression, unspecified
CPT/HCPCS: 99281; 74022; 80053; 81001; 83690; 84703; 85025; 87086; 87088; 96361; 96374; 99282; J7030; A4216; J2405

== ENCOUNTER 2022-04-24 18:31 | Emergency (ER) | payer MEDICAID, SELFPAY ==
[2022-04-24 18:32] VITALS: BP 118/72; PULSE 97; RESP 16; TEMP 36.4; O2SAT 100; BMI 28.5
--- NOTE | 2022-04-24 19:23 | ED.RN ---
pt called RN to room. states she would like to leave because she has been waiting for too long. Informed pt that she has been checked in for less than 1 hour but pt was calm and stated she will come back another time if her symptoms worsen.
== END 2022-04-24 19:24 | disposition left against medical advice (07) ==
LOC: ED 19:25
PROVIDERS: Emergency Provider Student in an Organized Health Care Education/Training Program; Visit Provider Student in an Organized Health Care Education/Training Program
DX: R11.2 Nausea with vomiting, unspecified (principal); R05.9 Cough, unspecified; R51.9 Headache, unspecified; J02.9 Acute pharyngitis, unspecified; R10.9 Unspecified abdominal pain
CPT/HCPCS: 99282

== ENCOUNTER 2022-04-25 18:55 | Emergency (ER) | payer MEDICAID, SELFPAY ==
[2022-04-25 18:57] VITALS: BP 123/84; PULSE 110; RESP 18; TEMP 36.4; O2SAT 100; BMI 28.5
--- NOTE | 2022-04-25 20:12 | EX.ED.DYSGE1 ---
HPI History of Present Illness Chief Complaint: General Illness Informant: patient Narrative Narrative: Patient presents with multiple symptoms. She states that all her symptoms started at about 14 April. She had some nausea and just did not feel well. She had intermittent coughing. She states about 3 days ago in a before she started feeling worse. She is coughing but no sputum production or dyspnea. She has diffuse myalgias. She has headaches but also has a history of migraines. These are not as bad as migraines. She has had nausea vomiting and soft watery stools. She has had soft stools about 3 times today. No blood is ever been seen in vomitus or stool. She gets abdominal cramping. She also has worsening of her chronic GERD but she thinks that is because she is not eating or drinking. She has had subjective fevers but has not taken it. She has no rashes. She denies urinary symptoms. She has no known sick contacts. [facility] Medical History Anxiety Asthma Depression Diarrhea Endometriosis GERD (gastroesophageal reflux disease) Migraine OCD (obsessive compulsive disorder) Pelvic pain POTS (postural orthostatic tachycardia syndrome) PTSD (post-traumatic stress disorder) Schizophrenia Tachycardia Upper abdominal pain Home Medications albuterol sulfate 90 mcg/actuation aerosol inhaler 2 puff inhalation PRN PRN Wheezing 06/14/21 [History Last Taken Unknown] epinephrine 0.3 mg/0.3 mL injection, auto-injector 1 mg IM PRN PRN Allergic Reaction 06/14/21 [History Last Taken Unknown] aripiprazole 2 mg tablet 5 mg PO QHS 07/31/21 [History Last Taken Unknown] fluoxetine 10 mg capsule 3 cap PO DAILY 10/06/21 [History Last Taken Unknown] omeprazole 40 mg capsule,delayed release 40 mg PO DAILY #30 caps 12/08/21 [Rx Last Taken Unknown] diclofenac sodium 75 mg tablet,delayed release 75 mg PO BID PRN pain 01/04/22 [History Last Taken Unknown] medroxyprogesterone 150 mg/mL intramuscular suspension (Depo-Provera) 150 mg IM Q6W 01/04/22 [History Last Taken Unknown] topiramate 100 mg tablet 125 mg PO QHS 01/04/22 [History Last Taken Unknown] prazosin 1 mg capsule 2 mg PO DAILY 12/05/22 [History Last Taken Unknown] prednisone 20 mg tablet 40 mg PO DAILY #6 tabs 03/19/22 [Rx Last Taken Unknown] trazodone 50 mg tablet 50 mg PO QHS 03/19/22 [History Last Taken Unknown] dicyclomine 20 mg tablet 20 mg PO TID PRN cramps #14 tabs 03/25/22 [Rx Last Taken Unknown] promethazine 25 mg tablet 25 mg PO TID PRN nausea and vomiting #10 tabs 03/25/22 [Rx Last Taken Unknown] Allergy/AdvReac Type Severity Reaction Status Date / Time gabapentin Allergy Rash Verified 04/25/22 18:57 sertraline [From Zoloft] Allergy Anaphylaxis Verified 04/25/22 18:57 silicone Allergy Rash Verified 04/25/22 18:57 lactose AdvReac Upset Verified 04/25/22 18:57 Stomach NASAL SPRAY Allergy Hives Uncoded 04/25/22 18:57 Family History Father Anxiety Depression Asthma Hypertension Mother Asthma Diabetes Anxiety Depression CAD (coronary artery disease) Myocardial infarction, Onset Age: 42 Brother Oleksandr-Danlos syndrome Grandmother Myocardial infarction, Onset Age: 41 Grandfather Myocardial infarction, Onset Age: 38 Surgical History History of colonoscopy History of esophagogastroduodenoscopy (EGD) Hx of laparoscopy Social History household members: none Smoking Status: Current every day smoker tobacco type: e-cigarettes alcohol intake: current alcohol intake frequency: holidays/special occasions only substance use type: does not use caffeine: Yes Type: carbonated beverages, coffee and tea ROS ROS ED Constitutional Constitutional ED: Reports subjective Eyes Eyes: Denies change in vision ENT ENT ED: Reports rhinorrhea; Denies sore throat Cardiovascular Cardiovascular: Denies chest pain or palpitations Respiratory/Chest Respiratory/Chest: Reports cough; Denies dyspnea Gastrointestinal Gastrointestinal: Reports abdominal pain, diarrhea, nausea and vomiting; Denies melena Genitourinary Genitourinary ED: Denies dysuria or hematuria Musculoskeletal Musculoskeletal: Reports myalgias Integumentary Denies rash Neurologic Neurologic: Reports headache(s) Psychiatric Psychiatric: Reports anxiety Endocrine Endocrinology: Denies polydipsia or polyuria Hematologic/Lymphatic Hematologic/Lymphatic: Denies easy bleeding, easy bruising or lymphadenopathy Allergic/Immunologic Allergic/Immunologic ED: Denies urticaria EXAM Physical Exam Narrative Exam Narrative: Patient awake alert very nontoxic. Mucous membranes do look to slightly dry. No exudate. No sinus tenderness. No nasal drainage. There is no meningismus. No stridor. Her lungs actually sound clear. She is not coughing while I am in the room. Heart is regular but mildly tachycardic at about 100. Peripheral pulses are equal and normal. I hear no murmur gallop or rub. Abdomen is soft nondistended with normal bowel sounds and is nontender. At 1 point she had a little suprapubic tenderness but with repeat evaluations she did not. There is no CVA tenderness. No pain specifically with motion of any joints or swelling. There is no rashes. Patient is awake alert and is not confused or lethargic. Const Vital Signs: 04/25/22 18:57 04/25/22 19:47 Temperature 97.6 F L Temperature Source Temporal Pulse Rate 110 H Respiratory Rate 18 Respiratory Effort Normal Non-Labored Respiratory Pattern Normal Blood Pressure 123/84 H Blood Pressure Mean 97 Pulse Ox 100 Oxygen Delivery Method Room Air Positive well nourished and well developed General Appearance ED: well developed MDM MDM MDM Narrative Medical decision making narrative: Patient CBC shows normal white count hemoglobin and platelets. Electrolytes show minimal decreased potassium at 3.4 and this should self correct with diet. No sign of dehydration. LFTs are normal. Lipase is normal. is negative. Urine is negative. My independent interpretation of the patient's single view chest x-ray done for coughing shows no sign of infiltrative process. No pneumothorax. Cardiac silhouette looks normal. Official reading by radiology also shows no acute process. Patient's recheck. She is feeling better. After seeing the patient and our volume calm down, I went back to review her prior charting on our system. I realize she has had a very large number of visits to the emergency department for multiple complaints but many of these are related to GI issues. She states she has meds for nausea at home. She knows she has Zofran. She does have Bentyl. I do not think she needs further prescriptions. Her symptoms do match a viral type illness. However, there is likely a component of chronic issues and possible gastroparesis. I do not think she needs admission. I think with her exam, clinical improvement, history, normal laboratory evaluation it is reasonable to get her home without further testing or CAT scan. At the end of the visit, patient did request a work note. We will write her off for a day so she can rest. Lab Data Attestation: I reviewed the patient's lab results. Labs: Laboratory Results - last 24 hr 04/25/22 04/25/22 04/25/22 20:20 20:20 20:20 WBC 7.2 RBC 5.39 Hgb 13.2 Hct 41.6 MCV 77.2 L MCH 24.5 L MCHC 31.7 L RDW Std Deviation 38.1 RDW Coeff of Anoop 13.5 Plt Count 395 MPV 8.3 Immature Gran % (Auto) 0.300 Neut % (Auto) 60.2 Lymph % (Auto) 30.9 [place] % (Auto) 7.7 Eos % (Auto) 0.6 Baso % (Auto) 0.3 Absolute Neuts (auto) 4.4 Absolute Lymphs (auto) 2.24 Nucleated RBC % 0 Sodium 140 Potassium 3.4 L Chloride 112 H Carbon Dioxide 21.0 Anion Gap 7 BUN 7 Creatinine 0.86 Estim Creat Clear Calc 89.36 Est GFR (MDRD) Af Amer 106 Est GFR (MDRD) Non-Af 88 BUN/Creatinine Ratio 8.1 L Glucose 85 Calcium 9.0 Total Bilirubin 0.40 AST 14 L ALT 18 Alkaline Phosphatase 106 Total Protein 7.7 Albumin 3.5 Globulin 4.2 Albumin/Globulin Ratio 0.8 L Lipase 88 Serum , Qual NEGATIVE Urine Color Urine Clarity Urine pH Ur Specific [place] Urine Protein Urine Glucose (UA) Urine Ketones Urine Occult Blood Urine Nitrite Urine Bilirubin Urine Urobilinogen Ur Leukocyte Esterase Urine RBC Urine WBC Ur Squamous Epith Cells Urine Bacteria Urine Mucus POC Glucose 04/25/22 04/25/22 20:30 20:30 WBC RBC Hgb Hct MCV MCH MCHC RDW Std Deviation RDW Coeff of Anoop Plt Count MPV Immature Gran % (Auto) Neut % (Auto) Lymph % (Auto) [place] % (Auto) Eos % (Auto) Baso % (Auto) Absolute Neuts (auto) Absolute Lymphs (auto) Nucleated RBC % Sodium Potassium Chloride Carbon Dioxide Anion Gap BUN Creatinine Estim Creat Clear Calc Est GFR (MDRD) Af Amer Est GFR (MDRD) Non-Af BUN/Creatinine Ratio Glucose Calcium Total Bilirubin AST ALT Alkaline Phosphatase Total Protein Albumin Globulin Albumin/Globulin Ratio Lipase Serum , Qual Urine Color Yellow Urine Clarity Clear Urine pH 8.0 Ur Specific [place] 1.010 Urine Protein Negative Urine Glucose (UA) Normal Urine Ketones Negative Urine Occult Blood Negative Urine Nitrite Negative Urine Bilirubin Negative Urine Urobilinogen Normal Ur Leukocyte Esterase 100 H Urine RBC 0 SEEN Urine WBC 0-5 SEEN Ur Squamous Epith Cells 0-5 SEEN Urine Bacteria 0 SEEN Urine Mucus 0 SEEN POC Glucose 86 Radiography Diagnostic Testing: Clinical Impression(s) from Imaging Studies Chest X-Ray 04/25/22 20:35 IMPRESSION: No radiographic evidence of acute cardiopulmonary disease. Electronically Signed: Anival Conway MD at 20:53 EST Reading Location ID and State: [address] [place] [address] , Service support , Discharge Plan Triage Chief Complaint: General Illness ED Provider: Chaz Toussaint Dx/Rx/DC Orders Clinical Impression: Viral illness, Nausea vomiting and diarrhea Instructions: ED Viral Syndrome (Adult), ED Vomiting and Diarrhea ... Prescriptions: No Action diclofenac sodium 75 mg tablet,delayed release (DR/EC) 75 mg PO BID PRN (Reason: pain) topiramate 100 mg tablet 125 mg PO QHS medroxyprogesterone [Depo-Provera] 150 mg/mL suspension 150 mg IM Q6W Label Comments: INJECT 1ML INTRAMUSCULARILY EVERY 12 WEEKS epinephrine 0.3 mg/0.3 mL auto-injector 1 mg IM PRN PRN (Reason: Allergic Reaction) Label Comments: INJECT INTO THE MUSCLE NEEDED FOR ANAPHYLAXIS REACTION albuterol sulfate 90 mcg/actuation HFA aerosol inhaler 2 puff INHALATION PRN PRN (Reason: Wheezing) Label Comments: inhale 2 puffs by mouth and INTO THE LUNGS every 4 hours if neede... (REFER TO PRESCRIPTION NOTES). aripiprazole 2 mg tablet 5 mg PO QHS fluoxetine 10 mg capsule 3 cap PO DAILY omeprazole 40 mg capsule,delayed release(DR/EC) 40 mg PO DAILY Qty: 30 0RF prednisone 20 mg tablet 40 mg PO DAILY Qty: 6 0RF trazodone 50 mg tablet 50 mg PO QHS Label Comments: TAKE 1 OR 2 TABLETS BY MOUTH AT BEDTIME prazosin 1 mg capsule 2 mg PO DAILY Label Comments: take 1 capsule by mouth twice a day dicyclomine 20 mg tablet 20 mg PO TID PRN (Reason: cramps) Qty: 14 0RF promethazine 25 mg tablet 25 mg PO TID PRN (Reason: nausea and vomiting) Qty: 10 0RF Stand Alone Forms: ED Work / School Excuse Primary Care Provider: [facility] Sury Queen Referrals: [facility] Bernice,Sury Catherine [Primary Care Provider] - 3-5 Days if not improving Disposition Disposition: Home, Self Care
[2022-04-25] MEDS: Ondansetron 4 MG/2 ML Vial IV (20:34)
[2022-04-25] MEDS: 0.9% Normal Saline 1,000 ML 1000 ML IV (20:34)
--- NOTE | 2022-04-25 20:35 | RAD_ITS ---
INDICATION: cough EXAMINATION/TECHNIQUE: X-RAY - XR Chest 1 View COMPARISON: November 26, 2021 FINDINGS: LINES/DEVICES: None. LUNGS: No consolidation, edema or effusion. No pneumothorax. MEDIASTINUM AND CARDIOVASCULAR STRUCTURES: Cardiac silhouette not enlarged. Central airways and mediastinal contour are unremarkable. BONES AND SOFT TISSUES: Unremarkable. No change since prior exam RAD/Chest 1 View (Portable) IMPRESSION: No radiographic evidence of acute cardiopulmonary disease. Electronically Signed: Anival Conway MD at 20:53 EST ,
[2022-04-25 20:37] LABS: Bacteria 0 SEEN /hpf (None Seen); Mucous, Urine 0 SEEN /hpf (<or=2+); Red Blood Cells-Urine 0 SEEN /hpf (0-5)
[2022-04-25 20:37] LABS: Absolute Lymphocyte Count 2.24 X10^3/uL (0.83-4.51); Absolute Neutrophil Count 4.4 X10^3/uL (2.0-7.7); Basophil# 0.02 X10^3/uL; Basophil% 0.3 % (0-1); Eosinophil# 0.04 X10^3/uL; Eosinophils% 0.6 % (0-5); Hematocrit 41.6 % (37-47); Hemoglobin 13.2 g/dL (12.0-15.0); Lymphocyte # 2.24 X10^3/ul (0.83-4.51); Lymphocyte % 30.9 % (19-41); Mean Corp Hgb Conc 31.7 g/dL (32-36); Mean Corpuscular Hgb 24.5 pg (27.0-32.0); Mean Corpuscular Volume 77.2 fL (81-99); Mean Platelet Vol. 8.3 fl (6.2-12.0); Monocyte# 0.56 X10^3/uL; Monocyte% 7.7 % (0-10); NRBC Flagged by Analyzer 0 % (0-5); Neutrophil # 4.36 X10^3/uL (2.7-7.7); Neutrophil % 60.2 % (47-70); Platelet Count 395 K/mm3 (150-450); RBC Distribution Width CV 13.5 % (11.6-14.6); RBC Distribution Width SD 38.1 fl (35.1-43.9); Red Blood Count 5.39 M/mm3 (4.2-5.4); White Blood Count 7.2 K/mm3 (4.4-11.0)
[2022-04-25 20:38] LABS: Color, Urine Yellow (Yellow); Glucose, Dipstick Normal (Normal); Ketone-Dipstick Negative (Negative); Leukocyte Esterase-Dipstick 100 /ul (Negative); Nitrite-Dipstick Negative (Negative); Occult Blood-Urine Negative /ul (Negative); Protein-Dipstick Negative (Negative); Urine Bilirubin Dipstick Negative (Negative); Urine Clarity Clear (Clear); Urine Urobilinogen Normal (Normal)
[2022-04-25 20:44] LABS: Squamous Epithelial Cells - UA 0-5 SEEN /hpf (5-10); White Blood Cells 0-5 SEEN /hpf (0-5)
[2022-04-25 20:51] LABS: Bedside Glucose 86 mg/dL (74-106)
[2022-04-25 20:55] LABS: Internal QC Validated? YES +Cl - CLEAR BKGD; Pregnancy, Serum, hCG Quali. NEGATIVE Negative
[2022-04-25 20:56] VITALS: RESP 16
[2022-04-25 20:56] LABS: ALB/GLOB Ratio 0.8 RATIO (0.9-2.4); AST(SGOT) 14 U/L (15-37); Alanine Aminotransfer ALT/SGPT 18 U/L (13-56); Albumin, Serum 3.5 g/dL (3.2-5.0); Alkaline Phosphatase 106 U/L (45-117); Anion Gap 7 (5-15); BUN 7 mg/dL (7-18); BUN/Creat Ratio 8.1 RATIO (10-20); Chloride 112 mmol/L (98-107); Creatinine, Serum 0.86 mg/dL (0.55-1.02); EST Glomerular Filtration Rate 88 mL/min (>60); Est Glom Filt Rate - Afr Amer 106 mL/min (>60); Estimated Creatinine Clearance 89.36 ml/min; Globulin 4.2 g/dL (2.2-4.2); Glucose 85 mg/dL (74-106); Lipase 88 U/L (73-393); Potassium 3.4 mmol/L (3.5-5.1); Protein, Total 7.7 g/dL (6.4-8.2); Sodium Level 140 mmol/L (136-145)
[2022-04-25 22:48] VITALS: RESP 14
== END 2022-04-25 22:49 | disposition home or self-care (01) ==
PROVIDERS: Emergency Provider Emergency Medicine; Visit Provider Emergency Medicine
DX: B34.9 Viral infection, unspecified (principal); R11.2 Nausea with vomiting, unspecified; R19.7 Diarrhea, unspecified; R10.9 Unspecified abdominal pain; R51.9 Headache, unspecified; Z82.5 Family history of asthma and other chronic lower respiratory diseases; M79.10 Myalgia, unspecified site; J45.909 Unspecified asthma, uncomplicated; F42.9 Obsessive-compulsive disorder, unspecified; K21.9 Gastro-esophageal reflux disease without esophagitis
CPT/HCPCS: 71045; 80053; 81001; 82962; 83690; 84703; 85025; 87428; 96361; 96374; 99283; J7030; A4216; J2405

== ENCOUNTER 2022-04-29 18:49 | Emergency (ER) | payer BC, MEDICAID, SELFPAY ==
[2022-04-29 18:50] VITALS: BP 149/85; PULSE 103; RESP 18; TEMP 37.1; O2SAT 98; BMI 28.9
--- NOTE | 2022-04-29 18:58 | EKG12_ITS ---
Test Reason : DYSRYTHMIA Blood Pressure : / mmHG Vent. Rate : 093 BPM Atrial Rate : 093 BPM P-R Int : 148 ms QRS Dur : 076 ms QT Int : 358 ms P-R-T Axes : 051 034 -01 degrees QTc Int : 445 ms Normal sinus rhythm Nonspecific T wave abnormality Abnormal ECG Confirmed by SALLY COOL, HUBER ([id number]), assistant editor BRITTA SHI ([id number]) on 05/01/2022 9:31:05 AM Referred By: Confirmed By:HUBER ZAVALA MD
[2022-04-29 19:22] LABS: Absolute Lymphocyte Count 2.32 X10^3/uL (0.83-4.51); Absolute Neutrophil Count 5.2 X10^3/uL (2.0-7.7); Basophil# 0.03 X10^3/uL; Basophil% 0.4 % (0-1); Eosinophil# 0.06 X10^3/uL; Eosinophils% 0.7 % (0-5); Hematocrit 39.3 % (37-47); Lymphocyte # 2.32 X10^3/ul (0.83-4.51); Lymphocyte % 28.2 % (19-41); Mean Corp Hgb Conc 33.1 g/dL (32-36); Mean Corpuscular Hgb 25.1 pg (27.0-32.0); Mean Corpuscular Volume 75.9 fL (81-99); Mean Platelet Vol. 8.6 fl (6.2-12.0); Monocyte# 0.59 X10^3/uL; Monocyte% 7.2 % (0-10); NRBC Flagged by Analyzer 0 % (0-5); Neutrophil # 5.21 X10^3/uL (2.7-7.7); Neutrophil % 63.1 % (47-70); Platelet Count 385 K/mm3 (150-450); RBC Distribution Width CV 13.4 % (11.6-14.6); RBC Distribution Width SD 36.9 fl (35.1-43.9); Red Blood Count 5.18 M/mm3 (4.2-5.4); White Blood Count 8.2 K/mm3 (4.4-11.0)
--- NOTE | 2022-04-29 19:24 | RAD_ITS ---
STUDY: X-RAY CHEST REASON FOR EXAM: Female, 22 years old. sob TECHNIQUE: Single AP portable view of the chest. COMPARISON: 04/25/2022 FINDINGS: Poor inspiration with some bibasilar atelectasis. There is no demonstrated pleural abnormality. Normal size heart. Normal mediastinum and dennis. Normal visualized pulmonary arteries. Normal visualized aortic arch and descending thoracic aorta. Normal visualized thoracic spine. Normal visualized ribs, clavicles, and shoulders. There is no demonstrated abnormality of the visualized soft tissue structures of the upper abdomen. RAD/Chest 1 View (Portable) IMPRESSION: Poor inspiration with some bibasilar atelectasis. Electronically Signed: Zack Barrett MD at 20:01 EST ,
--- NOTE | 2022-04-29 19:31 | ED.VIS.DYS ---
HPI History of Present Illness Chief Complaint: Shortness of Breath Narrative Narrative: Patient presents with shortness of breath that subsided. He had pain behind her right knee and numbness and then she developed some tachypnea and some chest pain on the right. These feel much better. No fever or chills no cough or congestion. [facility] Medical History Anxiety Asthma Depression Diarrhea Endometriosis GERD (gastroesophageal reflux disease) Migraine OCD (obsessive compulsive disorder) Pelvic pain POTS (postural orthostatic tachycardia syndrome) PTSD (post-traumatic stress disorder) Schizophrenia Tachycardia Upper abdominal pain Home Medications albuterol sulfate 90 mcg/actuation aerosol inhaler 2 puff inhalation PRN PRN Wheezing 06/14/21 [History Last Taken Unknown] epinephrine 0.3 mg/0.3 mL injection, auto-injector 1 mg IM PRN PRN Allergic Reaction 06/14/21 [History Last Taken Unknown] aripiprazole 2 mg tablet 5 mg PO QHS 07/31/21 [History Last Taken Unknown] fluoxetine 10 mg capsule 3 cap PO DAILY 10/06/21 [History Last Taken Unknown] omeprazole 40 mg capsule,delayed release 40 mg PO DAILY #30 caps 12/08/21 [Rx Last Taken Unknown] diclofenac sodium 75 mg tablet,delayed release 75 mg PO BID PRN pain 01/04/22 [History Last Taken Unknown] medroxyprogesterone 150 mg/mL intramuscular suspension (Depo-Provera) 150 mg IM Q6W 01/04/22 [History Last Taken Unknown] topiramate 100 mg tablet 125 mg PO QHS 01/04/22 [History Last Taken Unknown] prazosin 1 mg capsule 2 mg PO DAILY 03/19/22 [History Last Taken Unknown] trazodone 50 mg tablet 50 mg PO QHS 03/19/22 [History Last Taken Unknown] dicyclomine 20 mg tablet 20 mg PO TID PRN cramps #14 tabs 03/25/22 [Rx Last Taken Unknown] promethazine 25 mg tablet 25 mg PO TID PRN nausea and vomiting #10 tabs 03/25/22 [Rx Last Taken Unknown] prochlorperazine maleate 10 mg tablet 10 mg PO BID PRN Nausea 04/29/22 [History Last Taken Unknown] Allergy/AdvReac Type Severity Reaction Status Date / Time gabapentin Allergy Rash Verified 04/29/22 18:52 sertraline [From Zoloft] Allergy Anaphylaxis Verified 04/29/22 18:52 silicone Allergy Rash Verified 04/29/22 18:52 lactose AdvReac Upset Verified 04/29/22 18:52 Stomach NASAL SPRAY Allergy Hives Uncoded 04/29/22 18:52 Family History Father Anxiety Depression Asthma Hypertension Mother Asthma Diabetes Anxiety Depression CAD (coronary artery disease) Myocardial infarction, Onset Age: 42 Brother Oleksandr-Danlos syndrome Grandmother Myocardial infarction, Onset Age: 41 Grandfather Myocardial infarction, Onset Age: 38 Surgical History History of colonoscopy History of esophagogastroduodenoscopy (EGD) Hx of laparoscopy Social History household members: none Smoking Status: Current every day smoker tobacco type: e-cigarettes alcohol intake: current alcohol intake frequency: holidays/special occasions only substance use type: does not use caffeine: Yes Type: carbonated beverages, coffee and tea ROS ROS ED ROS Narrative Past medical history: Reviewed Medications: Reviewed Social history: Noncontributory Review of systems: All systems negative except as indicated General: No fever Eyes: No visual changes ENT: No upper airway congestion, normal voice Neck: No neck pain Cardiovascular: No chest pain Respiratory: Dyspnea to resolve Gastrointestinal: No abdominal pain, nausea vomiting or diarrhea Genitourinary: No dysuria Musculoskeletal: Some pain behind the right knee which is now gone. Skin: No rash Neurological: No memory loss, confusion or any focal weakness Psych: No recent behavioral changes Hematologic: No easy bleeding or easy bruising EXAM Physical Exam Narrative Exam Narrative: Physical exam General: Well nourished, Well developed, No Acute Distress Head: Normocephalic, Atraumatic Eyes: Conjunctiva not pale ENT: Moist mucous membranes Neck: Supple, Nontender, No lymphadenopathy Cardiovascular: Regular rate, Regular rhythm Respiratory: No distress, CTA bilaterally Abdomen: Soft, Nontender, Nondistended Back: Nontender, Normal Inspection. Negative for: CVA tenderness Extremities: Full range of motion of the right knee, no tenderness to palpation. No calf pain. No lower extremity edema. Skin: Normal color, No rash Neurological: Alert, Normal Strength, Normal Sensation Psychological: Normal affect Const Vital Signs: 04/29/22 18:50 04/29/22 19:13 Temperature 98.7 F Temperature Source Temporal Pulse Rate 103 H Respiratory Rate 18 Respiratory Effort Normal Respiratory Depth Normal Blood Pressure 149/85 H Blood Pressure Mean 106 Pulse Ox 98 Oxygen Delivery Method Room Air MDM MDM MDM Narrative Medical decision making narrative: A. Problems addressed Chest pain, shortness of breath, leg pain B. Amount and/or complexity of the data (2 out of 3) 1. Any 3 CBC CMP and D-dimer were interpreted by me. 2. Independent interpretation of test Telemetry: Sinus rhythm with a rate in the low 100s without any ectopy. C. Risk of complications and/or morbidity Differential diagnosis: Pulmonary embolism, her initial D-dimer was elevated however CTA does not show this Pneumothorax, x-ray did not show that ACS, patient has a low heart score without any risk factors and a normal EKG. Patient has an unremarkable work-up. She appears well. I believe she can be safely discharged home especially after the normal cardiac and PE work-up Lab Data Labs: Laboratory Results - last 24 hr 04/29/22 04/29/22 04/29/22 19:03 19:03 19:03 WBC 8.2 RBC 5.18 Hgb 13.0 Hct 39.3 MCV 75.9 L MCH 25.1 L MCHC 33.1 RDW Std Deviation 36.9 RDW Coeff of Anoop 13.4 Plt Count 385 MPV 8.6 Immature Gran % (Auto) 0.400 Neut % (Auto) 63.1 Lymph % (Auto) 28.2 [place] % (Auto) 7.2 Eos % (Auto) 0.7 Baso % (Auto) 0.4 Absolute Neuts (auto) 5.2 Absolute Lymphs (auto) 2.32 Nucleated RBC % 0 D-Dimer Quant (PE/DVT) 0.61 H* Sodium 140 Potassium 3.1 L Chloride 109 H Carbon Dioxide 24.0 Anion Gap 7 BUN 10 Creatinine 0.84 Estim Creat Clear Calc 91.48 Est GFR (MDRD) Af Amer 109 Est GFR (MDRD) Non-Af 90 BUN/Creatinine Ratio 11.9 Glucose 109 H Calcium 8.4 L Total Bilirubin 0.10 L AST 14 L ALT 18 Alkaline Phosphatase 108 Troponin I High Sens < 3 L Total Protein 6.9 Albumin 3.1 L Globulin 3.8 Albumin/Globulin Ratio 0.8 L Radiography Diagnostic Testing: Clinical Impression(s) from Imaging Studies Chest X-Ray 04/29/22 19:24 IMPRESSION: Poor inspiration with some bibasilar atelectasis. Electronically Signed: Zack Barrett MD at 20:01 EST Reading Location ID and State: [facility] / [place] Tel , Service support , Chest CTA 04/29/22 19:44 IMPRESSION: Normal CTA chest examination, without a demonstrated pulmonary embolism or arterial dissection. Electronically Signed: Zack Barrett MD at 20:38 EST Reading Location ID and State: [id number] [employer] Tel , Service support , Chest x-ray read by me and radiologist is normal EKG Initial EKG: Comments: Sinus rhythm with a rate of 93. Normal [place] and QTc intervals. No ischemic changes. Interpreted by emergency Dr. Discharge Plan Triage Chief Complaint: Shortness of Breath ED Provider: Sumanth Garcia Dx/Rx/DC Orders Clinical Impression: Chest pain, Acute dyspnea, Acute leg pain Instructions: ED Chest Pain, Noncardiac Prescriptions: No Action diclofenac sodium 75 mg tablet,delayed release (DR/EC) 75 mg PO BID PRN (Reason: pain) topiramate 100 mg tablet 125 mg PO QHS medroxyprogesterone [Depo-Provera] 150 mg/mL suspension 150 mg IM Q6W Label Comments: INJECT 1ML INTRAMUSCULARILY EVERY 12 WEEKS epinephrine 0.3 mg/0.3 mL auto-injector 1 mg IM PRN PRN (Reason: Allergic Reaction) Label Comments: INJECT INTO THE MUSCLE NEEDED FOR ANAPHYLAXIS REACTION albuterol sulfate 90 mcg/actuation HFA aerosol inhaler 2 puff INHALATION PRN PRN (Reason: Wheezing) Label Comments: inhale 2 puffs by mouth and INTO THE LUNGS every 4 hours if neede... (REFER TO PRESCRIPTION NOTES). aripiprazole 2 mg tablet 5 mg PO QHS fluoxetine 10 mg capsule 3 cap PO DAILY omeprazole 40 mg capsule,delayed release(DR/EC) 40 mg PO DAILY Qty: 30 0RF trazodone 50 mg tablet 50 mg PO QHS Label Comments: TAKE 1 OR 2 TABLETS BY MOUTH AT BEDTIME prazosin 1 mg capsule 2 mg PO DAILY Label Comments: take 1 capsule by mouth twice a day dicyclomine 20 mg tablet 20 mg PO TID PRN (Reason: cramps) Qty: 14 0RF promethazine 25 mg tablet 25 mg PO TID PRN (Reason: nausea and vomiting) Qty: 10 0RF prochlorperazine maleate 10 mg tablet 10 mg PO BID PRN (Reason: Nausea) Label Comments: take 1 tablet by mouth every 8 hours if needed for NAUSEA/VOMITTING Primary Care Provider: Sury Echavarria Referrals: [facility] Sury Queen [Primary Care Provider] - 3-5 Days Disposition Disposition: Home, Self Care
[2022-04-29 19:39] LABS: ALB/GLOB Ratio 0.8 RATIO (0.9-2.4); AST(SGOT) 14 U/L (15-37); Alanine Aminotransfer ALT/SGPT 18 U/L (13-56); Albumin, Serum 3.1 g/dL (3.2-5.0); Alkaline Phosphatase 108 U/L (45-117); Anion Gap 7 (5-15); BUN 10 mg/dL (7-18); BUN/Creat Ratio 11.9 RATIO (10-20); Calcium,Total 8.4 mg/dL (8.5-10.1); Chloride 109 mmol/L (98-107); Creatinine, Serum 0.84 mg/dL (0.55-1.02); D-Dimer Quantitative (DVT/PE) 0.61 FEU/ug/m (0.27-0.49); EST Glomerular Filtration Rate 90 mL/min (>60); Est Glom Filt Rate - Afr Amer 109 mL/min (>60); Estimated Creatinine Clearance 91.48 ml/min; Globulin 3.8 g/dL (2.2-4.2); Glucose 109 mg/dL (74-106); Potassium 3.1 mmol/L (3.5-5.1); Protein, Total 6.9 g/dL (6.4-8.2); Sodium Level 140 mmol/L (136-145); Troponin-I HS (w/2H Reflex) < 3 pg/mL (3.0-54.0)
--- NOTE | 2022-04-29 19:44 | CT_ITS ---
STUDY: CTA CHEST REASON FOR EXAM: Female, 22 years old. pe RADIATION DOSAGE (If Supplied By Facility): CTDIvol = ( 6.68 ) mGy, DLP = ( 199.57 ) mGycm TECHNIQUE: The examination was performed with the intravenous administration of IV 100mL [id number]-[id number]. Post-processing of the angiographic images was performed, with multiplanar reformation and 3D reconstruction. Individualized dose optimization techniques were used for this CT. COMPARISON: 11/07/2021, chest x-ray 04/29/2022 FINDINGS: Normal enhancement of the main pulmonary artery and right and left pulmonary arteries. Normal enhancement of the bilateral peripheral pulmonary arteries. There is no demonstrated pulmonary embolism. Normal thoracic aorta and visualized great vessels. There is no demonstrated aortic dissection. Normal heart and pericardium. Normal mediastinum. Normal hilar regions. Normal visualized trachea and bronchi. The lungs are well expanded. Normal pulmonary parenchyma. Normal pleura. Normal chest wall structures. Normal osseous structures. Normal visualized upper abdomen. CT/CTA Chest W/WO Contrast IMPRESSION: Normal CTA chest examination, without a demonstrated pulmonary embolism or arterial dissection. Electronically Signed: Zack Barrett MD at 20:38 EST ,
[2022-04-29 20:59] VITALS: RESP 16
[2022-04-29 21:10] LABS: Reflex Troponin-HS? (from REC) Y
== END 2022-04-29 21:01 | disposition home or self-care (01) ==
PROVIDERS: Emergency Provider Emergency Medicine; Visit Provider Emergency Medicine
DX: R07.9 Chest pain, unspecified (principal); F20.9 Schizophrenia, unspecified; Z82.5 Family history of asthma and other chronic lower respiratory diseases; F17.210 Nicotine dependence, cigarettes, uncomplicated; M79.606 Pain in leg, unspecified; R06.02 Shortness of breath; J45.909 Unspecified asthma, uncomplicated; R06.09 Other forms of dyspnea; F42.9 Obsessive-compulsive disorder, unspecified
CPT/HCPCS: 71045; 71275; 80053; 84484; 85025; 85379; 93005; 99283; Q9967

== ENCOUNTER → 2022-06-08 | Outpatient (CLI) | payer MEDICAID, SELFPAY ==
[2022-06-08 11:17] LABS: T4 Free Direct 0.95 ng/dL (0.76-1.46)
== END | disposition home or self-care (01) ==
LOC: LAB 09:00
PROVIDERS: Referring Provider Nurse Practitioner Family; Visit Provider Nurse Practitioner Family
DX: R63.5 Abnormal weight gain (principal)
CPT/HCPCS: 36415; 84439; 84443

== ENCOUNTER → 2022-06-14 | Outpatient (CLI) | payer MEDICAID, SELFPAY ==
[2022-06-14 14:53] LABS: Absolute Lymphocyte Count 2.41 X10^3/uL (0.83-4.51); Absolute Neutrophil Count 4.9 X10^3/uL (2.0-7.7); Basophil# 0.02 X10^3/uL; Basophil% 0.2 % (0-1); Eosinophil# 0.04 X10^3/uL; Eosinophils% 0.5 % (0-5); Erythrocyte Sedimentation Rate 19 mm/hr (0-30); Hematocrit 41.3 % (37-47); Hemoglobin 13.1 g/dL (12.0-15.0); Lymphocyte # 2.41 X10^3/ul (0.83-4.51); Lymphocyte % 29.9 % (19-41); Mean Corp Hgb Conc 31.7 g/dL (32-36); Mean Corpuscular Hgb 24.7 pg (27.0-32.0); Mean Corpuscular Volume 77.9 fL (81-99); Mean Platelet Vol. 8.5 fl (6.2-12.0); Monocyte# 0.67 X10^3/uL; Monocyte% 8.3 % (0-10); NRBC Flagged by Analyzer 0 % (0-5); Neutrophil # 4.89 X10^3/uL (2.7-7.7); Neutrophil % 60.7 % (47-70); Platelet Count 429 K/mm3 (150-450); RBC Distribution Width SD 39.6 fl (35.1-43.9); White Blood Count 8.1 K/mm3 (4.4-11.0)
[2022-06-14 15:29] LABS: ALB/GLOB Ratio 0.9 RATIO (0.9-2.4); AST(SGOT) 18 U/L (15-37); Alanine Aminotransfer ALT/SGPT 20 U/L (13-56); Albumin, Serum 3.4 g/dL (3.2-5.0); Alkaline Phosphatase 108 U/L (45-117); Anion Gap 8 (5-15); BUN 10 mg/dL (7-18); BUN/Creat Ratio 12.7 RATIO (10-20); CRP 4.68 mg/L (0.0-3.0); Calcium,Total 8.9 mg/dL (8.5-10.1); Chloride 106 mmol/L (98-107); Creatinine, Serum 0.78 mg/dL (0.55-1.02); EST Glomerular Filtration Rate 98 mL/min (>60); Est Glom Filt Rate - Afr Amer 119 mL/min (>60); Globulin 3.9 g/dL (2.2-4.2); Glucose 91 mg/dL (74-106); Lipase 94 U/L (73-393); Magnesium 2.2 mg/dL (1.6-2.6); Potassium 3.8 mmol/L (3.5-5.1); Protein, Total 7.3 g/dL (6.4-8.2); Sodium Level 139 mmol/L (136-145)
== END | disposition home or self-care (01) ==
LOC: LAB 14:22
PROVIDERS: Visit Provider Nurse Practitioner Family
DX: M79.10 Myalgia, unspecified site (principal); R10.9 Unspecified abdominal pain
CPT/HCPCS: 36415; 80053; 83690; 83735; 85025; 85652; 86140

== ENCOUNTER 2022-06-19 22:27 | Emergency (ER) | payer MEDICAID, SELFPAY ==
[2022-06-19 22:27] VITALS: BP 126/80; PULSE 94; RESP 15; TEMP 36.6; O2SAT 100; BMI 30.4
--- NOTE | 2022-06-19 22:41 | EDS_ITS ---
HPI History of Present Illness Chief Complaint: Hypertension Narrative Narrative: Patient presents with concerns about her blood pressure, she felt a little nauseated and took her blood pressure and it was 138 over 90s. Her nausea is now gone and her blood pressure improved she has no abdominal pain no vomiting denies . No fevers or chills. She does not have any chest pain. [facility] Medical History Anxiety Asthma Depression Diarrhea Endometriosis GERD (gastroesophageal reflux disease) Migraine OCD (obsessive compulsive disorder) Pelvic pain POTS (postural orthostatic tachycardia syndrome) PTSD (post-traumatic stress disorder) Schizophrenia Tachycardia Upper abdominal pain Home Medications albuterol sulfate 90 mcg/actuation aerosol inhaler 2 puff inhalation PRN PRN Wheezing 06/14/21 [History Last Taken Unknown] epinephrine 0.3 mg/0.3 mL injection, auto-injector 1 mg IM PRN PRN Allergic Reaction 06/14/21 [History Last Taken Unknown] aripiprazole 2 mg tablet 5 mg PO QHS 07/31/21 [History Last Taken Unknown] fluoxetine 10 mg capsule 3 cap PO DAILY 10/06/21 [History Last Taken Unknown] omeprazole 40 mg capsule,delayed release 40 mg PO DAILY #30 caps 12/08/21 [Rx Last Taken Unknown] diclofenac sodium 75 mg tablet,delayed release 75 mg PO BID PRN pain 01/04/22 [History Last Taken Unknown] medroxyprogesterone 150 mg/mL intramuscular suspension (Depo-Provera) 150 mg IM Q6W 01/04/22 [History Last Taken Unknown] topiramate 100 mg tablet 125 mg PO QHS 01/04/22 [History Last Taken Unknown] prazosin 1 mg capsule 2 mg PO DAILY 03/19/22 [History Last Taken Unknown] trazodone 50 mg tablet 50 mg PO QHS 03/19/22 [History Last Taken Unknown] dicyclomine 20 mg tablet 20 mg PO TID PRN cramps #14 tabs 03/25/22 [Rx Last Taken Unknown] promethazine 25 mg tablet 25 mg PO TID PRN nausea and vomiting #10 tabs 03/25/22 [Rx Last Taken Unknown] prochlorperazine maleate 10 mg tablet 10 mg PO BID PRN Nausea 04/29/22 [History Last Taken Unknown] Allergy/AdvReac Type Severity Reaction Status Date / Time gabapentin Allergy Rash Verified 06/19/22 22:32 sertraline [From Zoloft] Allergy Anaphylaxis Verified 06/19/22 22:32 silicone Allergy Rash Verified 06/19/22 22:32 lactose AdvReac Upset Verified 06/19/22 22:32 Stomach NASAL SPRAY Allergy Hives Uncoded 04/29/22 18:52 Family History Father Anxiety Depression Asthma Hypertension Mother Asthma Diabetes Anxiety Depression CAD (coronary artery disease) Myocardial infarction, Onset Age: 42 Brother Oleksandr-Danlos syndrome Grandmother Myocardial infarction, Onset Age: 41 Grandfather Myocardial infarction, Onset Age: 38 Surgical History History of colonoscopy History of esophagogastroduodenoscopy (EGD) Hx of laparoscopy Social History household members: none Smoking Status: Current every day smoker tobacco type: e-cigarettes alcohol intake: current alcohol intake frequency: holidays/special occasions only substance use type: does not use caffeine: Yes Type: carbonated beverages, coffee and tea ROS ROS ED ROS Narrative Past medical history: Reviewed, includes mental health disorders, sinus arrhythmia, history of sinus tachycardia, she was ruled out for POTS. Medications: Reviewed Social history: Noncontributory Review of systems: All systems negative except as indicated General: No fever Eyes: No visual changes ENT: No upper airway congestion, normal voice Neck: No neck pain Cardiovascular: No chest pain Respiratory: No shortness of breath or cough Gastrointestinal: No abdominal pain. Slight nausea that resolved Genitourinary: No dysuria Musculoskeletal: Denies myalgias no difficulty with ambulation Skin: No rash Neurological: No memory loss, confusion or any focal weakness Psych: Chronic depression and anxiety no changes today. EXAM Physical Exam Narrative Exam Narrative: Physical exam General: Well nourished, Well developed, No Acute Distress Head: Normocephalic, Atraumatic Eyes: Conjunctiva not pale ENT: Moist mucous membranes Neck: Supple, Nontender, No lymphadenopathy Cardiovascular: Regular rate, Regular rhythm Respiratory: No distress, CTA bilaterally Abdomen: Soft, Nontender, Nondistended Back: Nontender, Normal Inspection. Negative for: CVA tenderness Extremities: Nontender, No edema Skin: Normal color, No rash Neurological: Alert, Normal Strength, Normal Sensation Psychological: Normal affect, she is lucid coherent and pleasant. Const Vital Signs: 06/19/22 22:27 Temperature 97.9 F Temperature Source Temporal Pulse Rate 94 Respiratory Rate 15 Blood Pressure 126/80 H Blood Pressure Mean 95 Pulse Ox 100 Oxygen Delivery Method Room Air MDM MDM MDM Narrative Medical decision making narrative: 9I thought about blood work however patient is relatively presentation, her blood pressure is now 126/80. She is asymptomatic has no chest pain nausea vomiting back pain tearing sensation pleuritic component I do not believe anything is needed at this time other than reassurance. She agrees with this and will be discharged in stable condition EKG Initial EKG: Comments: Sinus rhythm with a rate of 85. Normal MI and QTc intervals. No ischemic changes. Interpreted by emergency doctor Discharge Plan Triage Chief Complaint: Hypertension ED Provider: Sumanth Garcia Dx/Rx/DC Orders Clinical Impression: Nausea, Hypertension Instructions: Blood Pressure Check Steps Prescriptions: No Action diclofenac sodium 75 mg tablet,delayed release (DR/EC) 75 mg PO BID PRN (Reason: pain) topiramate 100 mg tablet 125 mg PO QHS medroxyprogesterone [Depo-Provera] 150 mg/mL suspension 150 mg IM Q6W Label Comments: INJECT 1ML INTRAMUSCULARILY EVERY 12 WEEKS epinephrine 0.3 mg/0.3 mL auto-injector 1 mg IM PRN PRN (Reason: Allergic Reaction) Label Comments: INJECT INTO THE MUSCLE NEEDED FOR ANAPHYLAXIS REACTION albuterol sulfate 90 mcg/actuation HFA aerosol inhaler 2 puff INHALATION PRN PRN (Reason: Wheezing) Label Comments: inhale 2 puffs by mouth and INTO THE LUNGS every 4 hours if neede... (REFER TO PRESCRIPTION NOTES). aripiprazole 2 mg tablet 5 mg PO QHS fluoxetine 10 mg capsule 3 cap PO DAILY omeprazole 40 mg capsule,delayed release(DR/EC) 40 mg PO DAILY Qty: 30 0RF trazodone 50 mg tablet 50 mg PO QHS Label Comments: TAKE 1 OR 2 TABLETS BY MOUTH AT BEDTIME prazosin 1 mg capsule 2 mg PO DAILY Label Comments: take 1 capsule by mouth twice a day dicyclomine 20 mg tablet 20 mg PO TID PRN (Reason: cramps) Qty: 14 0RF promethazine 25 mg tablet 25 mg PO TID PRN (Reason: nausea and vomiting) Qty: 10 0RF prochlorperazine maleate 10 mg tablet 10 mg PO BID PRN (Reason: Nausea) Label Comments: take 1 tablet by mouth every 8 hours if needed for NAUSEA/VOMITTING Primary Care Provider: [facility] Referrals: [facility] [Primary Care Provider] - 3-5 Days Disposition Disposition: Home, Self Care
--- NOTE | 2022-06-19 23:02 | EKG12_ITS ---
Test Reason : CP Blood Pressure : / mmHG Vent. Rate : 085 BPM Atrial Rate : 085 BPM P-R Int : 138 ms QRS Dur : 072 ms QT Int : 374 ms P-R-T Axes : 051 025 -01 degrees QTc Int : 445 ms Normal sinus rhythm with sinus arrhythmia Normal ECG Confirmed by REBECCA COOL, YOHANNES ([id number]), telegraph editor BRITTA SHI ([id number]) on 06/21/2022 9:07:26 AM Referred By: LISA Confirmed By:YOHANNES FERNANDEZ MD
== END 2022-06-19 23:07 | disposition home or self-care (01) ==
PROVIDERS: Emergency Provider Emergency Medicine; PCP Nurse Practitioner Family; Visit Provider Emergency Medicine
DX: I10 Essential (primary) hypertension (principal); F17.210 Nicotine dependence, cigarettes, uncomplicated; R11.0 Nausea; K21.9 Gastro-esophageal reflux disease without esophagitis; J45.909 Unspecified asthma, uncomplicated; F32.9 Major depressive disorder, single episode, unspecified; F41.9 Anxiety disorder, unspecified
CPT/HCPCS: 93005; 99282

== ENCOUNTER 2022-06-26 10:52 | Emergency (ER) | payer MEDICAID, SELFPAY ==
[2022-06-26 10:53] VITALS: BP 126/78; PULSE 76; RESP 16; TEMP 36.6; O2SAT 100; BMI 28.7
--- NOTE | 2022-06-26 11:20 | EX.ED.DYSGE1 ---
HPI History of Present Illness Chief Complaint: Abd Pain Narrative Narrative: Patient presents with epigastric pain, some right upper quadrant pain. This been going on for few weeks worse today. No fevers or chills. The pain does not radiate into the back. She had some vomiting today. She has no lower abdominal pain although she has chronic pelvic pain today she does not have any lower abdominal pain. [facility] Medical History Anxiety Asthma Depression Diarrhea Endometriosis GERD (gastroesophageal reflux disease) Migraine OCD (obsessive compulsive disorder) Pelvic pain POTS (postural orthostatic tachycardia syndrome) PTSD (post-traumatic stress disorder) Schizophrenia Tachycardia Upper abdominal pain Home Medications albuterol sulfate 90 mcg/actuation aerosol inhaler 2 puff inhalation PRN PRN Wheezing 06/14/21 [History Last Taken Unknown] epinephrine 0.3 mg/0.3 mL injection, auto-injector 1 mg IM PRN PRN Allergic Reaction 06/14/21 [History Last Taken Unknown] aripiprazole 2 mg tablet 5 mg PO QHS 07/31/21 [History Last Taken Unknown] fluoxetine 10 mg capsule 3 cap PO DAILY 10/06/21 [History Last Taken Unknown] omeprazole 40 mg capsule,delayed release 40 mg PO DAILY #30 caps 12/08/21 [Rx Last Taken Unknown] diclofenac sodium 75 mg tablet,delayed release 75 mg PO BID PRN pain 01/04/22 [History Last Taken Unknown] medroxyprogesterone 150 mg/mL intramuscular suspension (Depo-Provera) 150 mg IM Q6W 01/04/22 [History Last Taken Unknown] topiramate 100 mg tablet 125 mg PO QHS 01/04/22 [History Last Taken Unknown] prazosin 1 mg capsule 2 mg PO DAILY 03/19/22 [History Last Taken Unknown] trazodone 50 mg tablet 50 mg PO QHS 03/19/22 [History Last Taken Unknown] dicyclomine 20 mg tablet 20 mg PO TID PRN cramps #14 tabs 03/25/22 [Rx Last Taken Unknown] promethazine 25 mg tablet 25 mg PO TID PRN nausea and vomiting #10 tabs 03/25/22 [Rx Last Taken Unknown] prochlorperazine maleate 10 mg tablet 10 mg PO BID PRN Nausea 04/29/22 [History Last Taken Unknown] pantoprazole 40 mg tablet,delayed release 40 mg PO DAILY #30 tabs 06/26/22 [Rx Last Taken Unknown] Allergy/AdvReac Type Severity Reaction Status Date / Time gabapentin Allergy Rash Verified 06/26/22 10:52 sertraline [From Zoloft] Allergy Anaphylaxis Verified 06/26/22 10:52 silicone Allergy Rash Verified 06/26/22 10:52 lactose AdvReac Upset Verified 06/26/22 10:52 Stomach NASAL SPRAY Allergy Hives Uncoded 06/26/22 10:52 Family History Father Anxiety Depression Asthma Hypertension Mother Asthma Diabetes Anxiety Depression CAD (coronary artery disease) Myocardial infarction, Onset Age: 42 Brother Oleksandr-Danlos syndrome Grandmother Myocardial infarction, Onset Age: 41 Grandfather Myocardial infarction, Onset Age: 38 Surgical History History of colonoscopy History of esophagogastroduodenoscopy (EGD) Hx of laparoscopy Social History household members: none Smoking Status: Current every day smoker tobacco type: e-cigarettes alcohol intake: current alcohol intake frequency: holidays/special occasions only substance use type: does not use caffeine: Yes Type: carbonated beverages, coffee and tea ROS ROS ED ROS Narrative Past medical history: Reviewed Medications: Reviewed Social history: Noncontributory Review of systems: All systems negative except as indicated General: No fever Eyes: No visual changes ENT: No upper airway congestion, normal voice Neck: No neck pain Cardiovascular: No chest pain Respiratory: No shortness of breath or cough Gastrointestinal: Epigastric pain as in HPI Genitourinary: No dysuria Musculoskeletal: Denies myalgias no difficulty with ambulation Skin: No rash Neurological: No memory loss, confusion or any focal weakness EXAM Physical Exam Narrative Exam Narrative: Physical exam General: She appears relatively comfortable sitting in a chair and she moves quite easily to the cot. Head: Normocephalic, Atraumatic Eyes: Conjunctiva not pale ENT: Moist mucous membranes, I do not see signs of dehydration Neck: Supple, Nontender, No lymphadenopathy Cardiovascular: Regular rate, Regular rhythm Respiratory: No distress, CTA bilaterally Abdomen: Soft, there is epigastric tenderness without any guarding or rebound. Very slight right upper quadrant pain but negative Hu's. No lower abdominal pain or pain at McBurney's. Relatively benign exam Back: Nontender, Normal Inspection. Negative for: CVA tenderness Extremities: Nontender, No edema Skin: Normal color, No rash Const Vital Signs: 06/26/22 10:53 Temperature 97.8 F Temperature Source Temporal Pulse Rate 76 Respiratory Rate 16 Blood Pressure 126/78 H Blood Pressure Mean 94 Pulse Ox 100 Oxygen Delivery Method Room Air MDM MDM MDM Narrative Medical decision making narrative: CBC CMP and lipase were normal. I thought about gallbladder disease however the patient's pain is mostly epigastric and she has normal lab I do not believe she meets criteria for ultrasound, she also had a recent ultrasound which did not show any gallbladder disease. I thought about pancreatitis but the lipase was normal, she likely has gastritis or an ulcer she is not on a PPI and I will place her on 1. She had slight dehydration which I treated. She is okay with the discharge plan. Lab Data Labs: Laboratory Results - last 24 hr 06/26/22 06/26/22 11:30 11:30 WBC 7.6 RBC 5.38 Hgb 13.2 Hct 41.3 MCV 76.8 L MCH 24.5 L MCHC 32.0 RDW Std Deviation 39.2 RDW Coeff of Anoop 14.1 Plt Count 420 MPV 8.3 Immature Gran % (Auto) 0.300 Neut % (Auto) 68.7 Lymph % (Auto) 24.7 [place] % (Auto) 5.8 Eos % (Auto) 0.1 Baso % (Auto) 0.4 Absolute Neuts (auto) 5.3 Absolute Lymphs (auto) 1.89 Nucleated RBC % 0 Sodium 138 Potassium 3.3 L Chloride 109 H Carbon Dioxide 20.0 L Anion Gap 9 BUN 10 Creatinine 0.97 Estim Creat Clear Calc 79.22 Est GFR (MDRD) Af Amer 93 Est GFR (MDRD) Non-Af 77 BUN/Creatinine Ratio 10.4 Glucose 115 H Calcium 8.9 Total Bilirubin 0.30 AST 12 L ALT 24 Alkaline Phosphatase 104 Total Protein 7.5 Albumin 3.5 Globulin 4.0 Albumin/Globulin Ratio 0.9 Lipase 69 L Discharge Plan Triage Chief Complaint: Abd Pain ED Provider: Sumanth Garcia Dx/Rx/DC Orders Clinical Impression: GERD (gastroesophageal reflux disease), Abdominal pain Instructions: Abdominal Pain, ED GERD (Adult) Prescriptions: New pantoprazole 40 mg tablet,delayed release (DR/EC) 40 mg PO DAILY Qty: 30 0RF No Action diclofenac sodium 75 mg tablet,delayed release (DR/EC) 75 mg PO BID PRN (Reason: pain) topiramate 100 mg tablet 125 mg PO QHS medroxyprogesterone [Depo-Provera] 150 mg/mL suspension 150 mg IM Q6W Label Comments: INJECT 1ML INTRAMUSCULARILY EVERY 12 WEEKS epinephrine 0.3 mg/0.3 mL auto-injector 1 mg IM PRN PRN (Reason: Allergic Reaction) Label Comments: INJECT INTO THE MUSCLE NEEDED FOR ANAPHYLAXIS REACTION albuterol sulfate 90 mcg/actuation HFA aerosol inhaler 2 puff INHALATION PRN PRN (Reason: Wheezing) Label Comments: inhale 2 puffs by mouth and INTO THE LUNGS every 4 hours if neede... (REFER TO PRESCRIPTION NOTES). aripiprazole 2 mg tablet 5 mg PO QHS fluoxetine 10 mg capsule 3 cap PO DAILY omeprazole 40 mg capsule,delayed release(DR/EC) 40 mg PO DAILY Qty: 30 0RF trazodone 50 mg tablet 50 mg PO QHS Label Comments: TAKE 1 OR 2 TABLETS BY MOUTH AT BEDTIME prazosin 1 mg capsule 2 mg PO DAILY Label Comments: take 1 capsule by mouth twice a day dicyclomine 20 mg tablet 20 mg PO TID PRN (Reason: cramps) Qty: 14 0RF promethazine 25 mg tablet 25 mg PO TID PRN (Reason: nausea and vomiting) Qty: 10 0RF prochlorperazine maleate 10 mg tablet 10 mg PO BID PRN (Reason: Nausea) Label Comments: take 1 tablet by mouth every 8 hours if needed for NAUSEA/VOMITTING Primary Care Provider: Sandra Medina Referrals: Sandra Medina, [employer] [Primary Care Provider] - 3-5 Days Disposition Disposition: Home, Self Care
[2022-06-26] MEDS: 0.9% Normal Saline 1,000 ML 1000 ML IV (11:34)
[2022-06-26] MEDS: Ondansetron 4 MG/2 ML Vial IV (11:34)
[2022-06-26 11:47] LABS: Absolute Lymphocyte Count 1.89 X10^3/uL (0.83-4.51); Absolute Neutrophil Count 5.3 X10^3/uL (2.0-7.7); Basophil# 0.03 X10^3/uL; Basophil% 0.4 % (0-1); Eosinophil# 0.01 X10^3/uL; Eosinophils% 0.1 % (0-5); Hematocrit 41.3 % (37-47); Hemoglobin 13.2 g/dL (12.0-15.0); Lymphocyte # 1.89 X10^3/ul (0.83-4.51); Lymphocyte % 24.7 % (19-41); Mean Corpuscular Hgb 24.5 pg (27.0-32.0); Mean Corpuscular Volume 76.8 fL (81-99); Mean Platelet Vol. 8.3 fl (6.2-12.0); Monocyte# 0.44 X10^3/uL; Monocyte% 5.8 % (0-10); NRBC Flagged by Analyzer 0 % (0-5); Neutrophil # 5.25 X10^3/uL (2.7-7.7); Neutrophil % 68.7 % (47-70); Platelet Count 420 K/mm3 (150-450); RBC Distribution Width CV 14.1 % (11.6-14.6); RBC Distribution Width SD 39.2 fl (35.1-43.9); Red Blood Count 5.38 M/mm3 (4.2-5.4); White Blood Count 7.6 K/mm3 (4.4-11.0)
[2022-06-26] MEDS: Famotidine 200 MG/20 ML MDV 20 MG in 0.9% Normal Saline (Pres. free 8 ML 300 MG IV (11:52)
[2022-06-26 11:56] LABS: ALB/GLOB Ratio 0.9 RATIO (0.9-2.4); AST(SGOT) 12 U/L (15-37); Alanine Aminotransfer ALT/SGPT 24 U/L (13-56); Albumin, Serum 3.5 g/dL (3.2-5.0); Alkaline Phosphatase 104 U/L (45-117); Anion Gap 9 (5-15); BUN 10 mg/dL (7-18); BUN/Creat Ratio 10.4 RATIO (10-20); Calcium,Total 8.9 mg/dL (8.5-10.1); Chloride 109 mmol/L (98-107); Creatinine, Serum 0.97 mg/dL (0.55-1.02); EST Glomerular Filtration Rate 77 mL/min (>60); Est Glom Filt Rate - Afr Amer 93 mL/min (>60); Estimated Creatinine Clearance 79.22 ml/min; Glucose 115 mg/dL (74-106); Lipase 69 U/L (73-393); Potassium 3.3 mmol/L (3.5-5.1); Protein, Total 7.5 g/dL (6.4-8.2); Sodium Level 138 mmol/L (136-145)
[2022-06-26 13:26] VITALS: BP 124/78; PULSE 64; RESP 18; TEMP 36.6; O2SAT 100
== END 2022-06-26 13:27 | disposition home or self-care (01) ==
PROVIDERS: Emergency Provider Emergency Medicine; PCP Nurse Practitioner Family; Visit Provider Emergency Medicine
DX: K21.9 Gastro-esophageal reflux disease without esophagitis (principal); R10.9 Unspecified abdominal pain; E86.0 Dehydration; Z82.5 Family history of asthma and other chronic lower respiratory diseases; M54.9 Dorsalgia, unspecified; F17.210 Nicotine dependence, cigarettes, uncomplicated; J45.909 Unspecified asthma, uncomplicated; F32.A Depression, unspecified; F41.9 Anxiety disorder, unspecified
CPT/HCPCS: 80053; 83690; 85025; 96361; 96374; 96375; 99285; J7030; A4216; J2405; J3490

== ENCOUNTER 2022-07-02 15:20 | Emergency (ER) | payer MEDICAID, SELFPAY ==
[2022-07-02 15:21] VITALS: BP 147/84; PULSE 99; RESP 18; TEMP 36.9; O2SAT 100; BMI 29.6
--- NOTE | 2022-07-02 15:36 | ED.VIS.GI ---
HPI HPI - GI History of Present Illness Chief Complaint: Abd Pain Detail of Chief Complaint: Abdominal pain Informant: patient Narrative Narrative: Patient presents with abdominal pain that she has had for about 2 weeks. Patient states that its wax and wane in intensity. She notices that food seems to make it worse soon after eating. Patient scribes the pain is upper abdomen and radiating to the right back. Today she noticed the pain was more severe when she woke up around 6 AM but went to work because she started a new job. Patient vomited once at work and once on arrival to the emergency department. She denies any fevers but states she thinks her temp was 99 last night. Patient denies urinary symptoms. She is on the Depo shot and does not have regular periods. She has not had any prior abdominal surgeries other than a laparoscopy secondary to endometriosis. Patient denies diarrhea. She denies blood in her stool or black tarry stool. Patient currently rates the pain a 8 out of 10. [facility] Medical History Anxiety Asthma Depression Diarrhea Endometriosis GERD (gastroesophageal reflux disease) Migraine OCD (obsessive compulsive disorder) Pelvic pain POTS (postural orthostatic tachycardia syndrome) PTSD (post-traumatic stress disorder) Schizophrenia Tachycardia Upper abdominal pain Home Medications albuterol sulfate 90 mcg/actuation aerosol inhaler 2 puff inhalation PRN PRN Wheezing 06/14/21 [History Last Taken Unknown] epinephrine 0.3 mg/0.3 mL injection, auto-injector 1 mg IM PRN PRN Allergic Reaction 06/14/21 [History Last Taken Unknown] aripiprazole 2 mg tablet 5 mg PO QHS 07/31/21 [History Last Taken Unknown] fluoxetine 10 mg capsule 3 cap PO DAILY 10/06/21 [History Last Taken Unknown] omeprazole 40 mg capsule,delayed release 40 mg PO DAILY #30 caps 12/08/21 [Rx Last Taken Unknown] diclofenac sodium 75 mg tablet,delayed release 75 mg PO BID PRN pain 01/04/22 [History Last Taken Unknown] medroxyprogesterone 150 mg/mL intramuscular suspension (Depo-Provera) 150 mg IM Q6W 01/04/22 [History Last Taken Unknown] topiramate 100 mg tablet 125 mg PO QHS 01/04/22 [History Last Taken Unknown] prazosin 1 mg capsule 2 mg PO DAILY 03/19/22 [History Last Taken Unknown] trazodone 50 mg tablet 50 mg PO QHS 03/19/22 [History Last Taken Unknown] dicyclomine 20 mg tablet 20 mg PO TID PRN cramps #14 tabs 03/25/22 [Rx Last Taken Unknown] promethazine 25 mg tablet 25 mg PO TID PRN nausea and vomiting #10 tabs 03/25/22 [Rx Last Taken Unknown] prochlorperazine maleate 10 mg tablet 10 mg PO BID PRN Nausea 04/29/22 [History Last Taken Unknown] pantoprazole 40 mg tablet,delayed release 40 mg PO DAILY #30 tabs 06/26/22 [Rx Last Taken Unknown] Allergy/AdvReac Type Severity Reaction Status Date / Time gabapentin Allergy Rash Verified 07/02/22 15:23 sertraline [From Zoloft] Allergy Anaphylaxis Verified 07/02/22 15:23 silicone Allergy Rash Verified 07/02/22 15:23 lactose AdvReac Upset Verified 07/02/22 15:23 Stomach NASAL SPRAY Allergy Severe Hives Uncoded 07/02/22 15:23 Family History Father Anxiety Depression Asthma Hypertension Mother Asthma Diabetes Anxiety Depression CAD (coronary artery disease) Myocardial infarction, Onset Age: 42 Brother Oleksandr-Danlos syndrome Grandmother Myocardial infarction, Onset Age: 41 Grandfather Myocardial infarction, Onset Age: 38 Surgical History History of colonoscopy History of esophagogastroduodenoscopy (EGD) Hx of laparoscopy Social History household members: none Smoking Status: Current every day smoker tobacco type: e-cigarettes alcohol intake: current alcohol intake frequency: holidays/special occasions only substance use type: does not use caffeine: Yes Type: carbonated beverages, coffee and tea ROS ROS ED Review of Systems ROS Unobtainable: other Constitutional Constitutional ED: Reports lethargy; Denies chills, fever(s), sweats or weight loss Eyes Eyes: Denies blurry vision, change in vision or diplopia ENT ENT ED: Denies rhinorrhea or sore throat Cardiovascular Cardiovascular: Denies chest pain, orthopnea or racing heartbeat Respiratory/Chest Respiratory/Chest: Denies cough, dyspnea, dyspnea on exertion, orthopnea or sputum Gastrointestinal Gastrointestinal: Reports nausea and vomiting; Denies abdominal pain or diarrhea Genitourinary Genitourinary ED: Denies dysuria, hematuria or urinary frequency Musculoskeletal Musculoskeletal: Denies arthralgias, back pain, myalgias or neck pain Integumentary Denies abscess, Abrasions or rash Neurologic Neurologic: Denies headache(s) or weakness Psychiatric Psychiatric: Denies anxiety, depression or suicidal thoughts Endocrine Endocrinology: Denies polydipsia, polyphagia or polyuria Hematologic/Lymphatic Hematologic/Lymphatic: Denies easy bleeding, easy bruising or lymphadenopathy Allergic/Immunologic Allergic/Immunologic ED: Denies mouth swelling, tongue swelling or urticaria EXAM Physical Exam Const Vital Signs: 07/02/22 15:21 Temperature 98.5 F Temperature Source Temporal Pulse Rate 99 Respiratory Rate 18 Blood Pressure 147/84 H Blood Pressure Mean 105 Pulse Ox 100 Oxygen Delivery Method Room Air Positive well nourished and well developed General Appearance ED: well developed and NAD HEENT Reports TM's clear and moist mucous membranes normocephalic and atraumatic; Negative for trauma or tenderness Tympanic Membrane ED: Yes TM's clear Eyes PERRL and EOMs intact bilaterally General Eye ED: Negative for pale conjunctiva or scleral icterus Neck no lymphadenopathy, supple and no JVD General: Negative for tenderness Chest Wall inspection of chest normal and palpation of chest normal Chest: Negative for tenderness Resp normal respiratory effort and clear to auscultation bilaterally Effort and Inspection: Negative for respiratory distress or pain with movement Auscultation: Negative for rhonchi, wheezes or diminished lung sounds Cardio regular rate, regular rhythm, S1 normal heart sound, S2 normal heart sound and no murmurs Peripheral Pulses: pulses 2+ throughout GI normal to inspection, nondistended, normoactive bowel sounds, soft to palpation, non-distended and no masses GI Narrative: Tenderness to palpation over the right upper quadrant and epigastric area. Patient has a positive Hu sign. She has a mild tenderness of the right lower quadrant. There is no rebound, rigidity, or peritoneal signs. No mass palpated. Back/Spine no CVA tenderness and no thoracic nor lumbar tenderness Extremity normal to inspection General Extremety ED: Negative for edema General Extremity: Negative for edema Neuro oriented x3, CN's II-XII intact bilaterally, no sensory deficits noted and gait normal Sensorium / Orientation: awake, alert, oriented to person, oriented to place and oriented to time Motor Exam: strength 5/5 throughout and strength abnormal Psych mental status grossly normal Skin no rashes or lesions noted and no wounds MDM MDM MDM Narrative Medical decision making narrative: Patient presents with right upper abdomen pain. In the differential would be gallbladder disease versus peptic ulcer disease versus bowel obstruction versus kidney stone. Patient had an IV line established and CBC with differential obtained was normal. Chemistries were unremarkable. LFTs were normal. Lactate was normal. Lipase normal. Urinalysis was normal. CT scan of the abdomen pelvis with IV contrast obtained showed no acute disease process and showed essentially normal gallbladder no evidence of ductal dilatation. Patient was medicated with morphine and Zofran she had good pain relief with that. She had no further vomiting. At this time etiology of her abdominal pain unclear however cannot completely rule out biliary dyskinesia or peptic ulcer disease. I will refer refer her to general surgeon on-call to follow-up with if her symptoms persist that she may need further imaging such as possibly HIDA scan and possible EGD. Patient states its been years since she has had an EGD. Lab Data Labs: Laboratory Results - last 24 hr 07/02/22 07/02/22 07/02/22 15:55 15:55 15:55 WBC 6.4 RBC 5.34 Hgb 13.2 Hct 41.4 MCV 77.5 L MCH 24.7 L MCHC 31.9 L RDW Std Deviation 39.6 RDW Coeff of Anoop 14.2 Plt Count 421 MPV 8.5 Immature Gran % (Auto) 0.200 Neut % (Auto) 64.8 Lymph % (Auto) 30.1 [place] % (Auto) 4.4 Eos % (Auto) 0.3 Baso % (Auto) 0.2 Absolute Neuts (auto) 4.1 Absolute Lymphs (auto) 1.91 Nucleated RBC % 0 Sodium 140 Potassium 3.4 L Chloride 110 H Carbon Dioxide 24.0 Anion Gap 6 BUN 9 Creatinine 0.96 Estim Creat Clear Calc 80.05 Est GFR (MDRD) Af Amer 94 Est GFR (MDRD) Non-Af 78 BUN/Creatinine Ratio 9.4 L Glucose 114 H Lactic Acid 0.8 Calcium 9.3 Total Bilirubin 0.40 AST 14 L ALT 20 Alkaline Phosphatase 99 Total Protein 7.9 Albumin 3.8 Globulin 4.1 Albumin/Globulin Ratio 0.9 Lipase 75 Serum , Qual Urine Color Urine Clarity Urine pH Ur Specific [place] Urine Protein Urine Glucose (UA) Urine Ketones Urine Occult Blood Urine Nitrite Urine Bilirubin Urine Urobilinogen Ur Leukocyte Esterase Urine RBC Urine WBC Ur Squamous Epith Cells Urine Bacteria Urine Mucus 07/02/22 07/02/22 15:55 16:23 WBC RBC Hgb Hct MCV MCH MCHC RDW Std Deviation RDW Coeff of [place] Plt Count MPV Immature Gran % (Auto) Neut % (Auto) Lymph % (Auto) [place] % (Auto) Eos % (Auto) Baso % (Auto) Absolute Neuts (auto) Absolute Lymphs (auto) Nucleated RBC % Sodium Potassium Chloride Carbon Dioxide Anion Gap BUN Creatinine Estim Creat Clear Calc Est GFR (MDRD) Af Amer Est GFR (MDRD) Non-Af BUN/Creatinine Ratio Glucose Lactic Acid Calcium Total Bilirubin AST ALT Alkaline Phosphatase Total Protein Albumin Globulin Albumin/Globulin Ratio Lipase Serum , Qual NEGATIVE Urine Color Yellow Urine Clarity Clear Urine pH 6.5 Ur Specific [place] 1.010 Urine Protein Negative Urine Glucose (UA) Normal Urine Ketones Negative Urine Occult Blood Negative Urine Nitrite Negative Urine Bilirubin Negative Urine Urobilinogen Normal Ur Leukocyte Esterase 500 H Urine RBC 0 SEEN Urine WBC 0-5 SEEN Ur Squamous Epith Cells 0-5 SEEN Urine Bacteria 0 SEEN Urine Mucus 0 SEEN Radiography Diagnostic Testing: Clinical Impression(s) from Imaging Studies Abdomen/Pelvis CT 07/02/22 16:27 IMPRESSION: No acute intra-abdominal or pelvic process or major interval change. Electronically Signed: Feliciano Case DO at 17:24 EDT Reading Location ID and State: [address] [place] [address] Tel [phone], Service support , Discharge Plan Triage Chief Complaint: Abd Pain ED Provider: Loree Funes Dx/Rx/DC Orders Clinical Impression: Abdominal pain Instructions: Abdominal Pain Prescriptions: No Action diclofenac sodium 75 mg tablet,delayed release (DR/EC) 75 mg PO BID PRN (Reason: pain) topiramate 100 mg tablet 125 mg PO QHS medroxyprogesterone [Depo-Provera] 150 mg/mL suspension 150 mg IM Q6W Label Comments: INJECT 1ML INTRAMUSCULARILY EVERY 12 WEEKS epinephrine 0.3 mg/0.3 mL auto-injector 1 mg IM PRN PRN (Reason: Allergic Reaction) Label Comments: INJECT INTO THE MUSCLE NEEDED FOR ANAPHYLAXIS REACTION albuterol sulfate 90 mcg/actuation HFA aerosol inhaler 2 puff INHALATION PRN PRN (Reason: Wheezing) Label Comments: inhale 2 puffs by mouth and INTO THE LUNGS every 4 hours if neede... (REFER TO PRESCRIPTION NOTES). aripiprazole 2 mg tablet 5 mg PO QHS fluoxetine 10 mg capsule 3 cap PO DAILY omeprazole 40 mg capsule,delayed release(DR/EC) 40 mg PO DAILY Qty: 30 0RF trazodone 50 mg tablet 50 mg PO QHS Label Comments: TAKE 1 OR 2 TABLETS BY MOUTH AT BEDTIME prazosin 1 mg capsule 2 mg PO DAILY Label Comments: take 1 capsule by mouth twice a day dicyclomine 20 mg tablet 20 mg PO TID PRN (Reason: cramps) Qty: 14 0RF promethazine 25 mg tablet 25 mg PO TID PRN (Reason: nausea and vomiting) Qty: 10 0RF prochlorperazine maleate 10 mg tablet 10 mg PO BID PRN (Reason: Nausea) Label Comments: take 1 tablet by mouth every 8 hours if needed for NAUSEA/VOMITTING pantoprazole 40 mg tablet,delayed release (DR/EC) 40 mg PO DAILY Qty: 30 0RF Primary Care Provider: Sandra Medina Referrals: Meet David MD [Med Staff - Active Staff] - 3-5 Days Sandra Medina, [facility] [Primary Care Provider] - Disposition Disposition: Home, Self Care
[2022-07-02] MEDS: Ondansetron 4 MG/2 ML Vial IV (15:52)
[2022-07-02] MEDS: Morphine 4 MG/ML Syringe IV (15:52)
[2022-07-02 16:14] LABS: Absolute Lymphocyte Count 1.91 X10^3/uL (0.83-4.51); Absolute Neutrophil Count 4.1 X10^3/uL (2.0-7.7); Basophil# 0.01 X10^3/uL; Basophil% 0.2 % (0-1); Eosinophil# 0.02 X10^3/uL; Eosinophils% 0.3 % (0-5); Hematocrit 41.4 % (37-47); Hemoglobin 13.2 g/dL (12.0-15.0); Lymphocyte # 1.91 X10^3/ul (0.83-4.51); Lymphocyte % 30.1 % (19-41); Mean Corp Hgb Conc 31.9 g/dL (32-36); Mean Corpuscular Hgb 24.7 pg (27.0-32.0); Mean Corpuscular Volume 77.5 fL (81-99); Mean Platelet Vol. 8.5 fl (6.2-12.0); Monocyte# 0.28 X10^3/uL; Monocyte% 4.4 % (0-10); NRBC Flagged by Analyzer 0 % (0-5); Neutrophil # 4.12 X10^3/uL (2.7-7.7); Neutrophil % 64.8 % (47-70); Platelet Count 421 K/mm3 (150-450); RBC Distribution Width CV 14.2 % (11.6-14.6); RBC Distribution Width SD 39.6 fl (35.1-43.9); Red Blood Count 5.34 M/mm3 (4.2-5.4); White Blood Count 6.4 K/mm3 (4.4-11.0)
[2022-07-02 16:26] LABS: ALB/GLOB Ratio 0.9 RATIO (0.9-2.4); AST(SGOT) 14 U/L (15-37); Alanine Aminotransfer ALT/SGPT 20 U/L (13-56); Albumin, Serum 3.8 g/dL (3.2-5.0); Alkaline Phosphatase 99 U/L (45-117); Anion Gap 6 (5-15); BUN 9 mg/dL (7-18); BUN/Creat Ratio 9.4 RATIO (10-20); Calcium,Total 9.3 mg/dL (8.5-10.1); Chloride 110 mmol/L (98-107); Creatinine, Serum 0.96 mg/dL (0.55-1.02); EST Glomerular Filtration Rate 78 mL/min (>60); Est Glom Filt Rate - Afr Amer 94 mL/min (>60); Estimated Creatinine Clearance 80.05 ml/min; Globulin 4.1 g/dL (2.2-4.2); Glucose 114 mg/dL (74-106); Lipase 75 U/L (73-393); Potassium 3.4 mmol/L (3.5-5.1); Protein, Total 7.9 g/dL (6.4-8.2); Sodium Level 140 mmol/L (136-145)
--- NOTE | 2022-07-02 16:27 | CT_ITS ---
INDICATION: Abdominal pain for a few weeks. EXAMINATION: CT ABDOMEN AND PELVIS WITH CONTRAST - CT Abdomen And Pelvis W/ Contrast Injection TECHNIQUE: Helically acquired images were obtained of the abdomen and pelvis following IV contrast. A radiation dose optimization technique was used for this scan. IV Contrast dosage and agent: 100 mL of Isovue-300 Oral contrast: None. COMPARISON: February 08, 2022. FINDINGS: LOWER CHEST: Lung bases are clear. No cardiomegaly or pericardial effusion. LIVER: Homogeneous. No focal mass. GALLBLADDER AND BILIARY TREE: No calcified gallstones. The gallbladder is poorly distended but grossly normal. No intra- or extrahepatic biliary ductal dilation. PANCREAS: No focal cystic or solid mass. SPLEEN: Normal size without focal cystic or solid mass. ADRENAL GLANDS: No nodules. KIDNEYS AND URETERS: Normal renal size and position. No hydronephrosis. Normal visualized ureters. PERITONEUM: No ascites or free air. No other fluid collection. BOWEL: Normal stomach. Normal small intestine. Normal colon. Normal appendix. LYMPH NODES: No enlarged mesenteric or retroperitoneal lymph nodes. VESSELS: Normal abdominal aorta and IVC. URINARY BLADDER: Unremarkable. REPRODUCTIVE ORGANS: Normal uterus and adnexa. ABDOMINAL WALL: No discrete abdominal or pelvic wall hernia. BONES: No lytic or blastic abnormality. CT/Abdomen/Pelvis W IV Cont ONLY IMPRESSION: No acute intra-abdominal or pelvic process or major interval change. Electronically Signed: Feliciano Case DO at 17:24 EDT ,
[2022-07-02 16:33] LABS: Bacteria 0 SEEN /hpf (None Seen); Mucous, Urine 0 SEEN /hpf (<or=2+); Red Blood Cells-Urine 0 SEEN /hpf (0-5)
[2022-07-02 16:37] LABS: Color, Urine Yellow (Yellow); Glucose, Dipstick Normal (Normal); Ketone-Dipstick Negative (Negative); Leukocyte Esterase-Dipstick 500 /ul (Negative); Nitrite-Dipstick Negative (Negative); Occult Blood-Urine Negative /ul (Negative); Protein-Dipstick Negative (Negative); Urine Bilirubin Dipstick Negative (Negative); Urine Clarity Clear (Clear); Urine Urobilinogen Normal (Normal); Urine pH 6.5 (5.0 - 8.0)
[2022-07-02] MEDS: 0.9% Normal Saline 1,000 ML 125 ML IV (16:42)
[2022-07-02 16:44] LABS: Internal QC Validated? YES +Cl - CLEAR BKGD; Lactic Acid 0.8 mmol/L (0.4-1.9); Pregnancy, Serum, hCG Quali. NEGATIVE Negative
[2022-07-02 16:54] LABS: Squamous Epithelial Cells - UA 0-5 SEEN /hpf (5-10); White Blood Cells 0-5 SEEN /hpf (0-5)
[2022-07-02 18:20] VITALS: BP 126/67; BP 126/87; PULSE 72; PULSE 76; RESP 14; RESP 16; TEMP 37.2; O2SAT 98; O2SAT 99
== END 2022-07-02 18:21 | disposition home or self-care (01) ==
PROVIDERS: Emergency Provider Emergency Medicine; PCP Nurse Practitioner Family; Visit Provider Emergency Medicine
DX: R10.10 Upper abdominal pain, unspecified (principal); F20.9 Schizophrenia, unspecified; F17.210 Nicotine dependence, cigarettes, uncomplicated; Z79.3 Long term (current) use of hormonal contraceptives; J45.909 Unspecified asthma, uncomplicated; Z79.899 Other long term (current) drug therapy; F32.A Depression, unspecified; K21.9 Gastro-esophageal reflux disease without esophagitis; F42.9 Obsessive-compulsive disorder, unspecified; G43.909 Migraine, unspecified, not intractable, without status migrainosus; F41.9 Anxiety disorder, unspecified
CPT/HCPCS: 74177; 80053; 81001; 83605; 83690; 84703; 85025; 96361; 96374; 96375; 99282; J7030; Q9967; A4216; J2405

== ENCOUNTER 2022-07-19 22:09 | Emergency (ER) | payer MEDICAID, SELFPAY ==
[2022-07-19 22:09] VITALS: BP 117/73; PULSE 100; RESP 18; TEMP 37.1; O2SAT 99; BMI 28.8
[2022-07-19 22:19] VITALS: BP 132/73; PULSE 83; RESP 18
--- NOTE | 2022-07-19 22:46 | RAD_ITS ---
INDICATION: pain EXAMINATION/TECHNIQUE: X-RAY - XR Neck Soft Tissue COMPARISON: No comparison. FINDINGS: 2 views of the cervical spine. BONES: Cervical straightening. Normal anatomic alignment without evidence of fracture or subluxation. No concerning bony lesion or abnormal sclerosis to suggest lesion. DISCS/JOINTS: No significant degenerative change. SOFT TISSUES: Unremarkable. RAD/Neck for Soft Tissue IMPRESSION: Unremarkable cervical spine. If there is persistent clinical concern for spine fracture and this is a trauma patient, recommend dedicated cervical spine CT. Electronically Signed: Wai Leonard MD at 0:29 EDT ,
--- NOTE | 2022-07-19 23:10 | RAD_ITS ---
INDICATION: s/p EGD pain COMPARISON: Abdominal CT 10/02/2022. FINDINGS: Single frontal view of the chest. No acute focal airspace disease or mass lesion. No pneumothorax. No pleural effusion. Cardiomediastinal silhouette is unremarkable. 3 frontal views of the abdomen. Scattered air-fluid levels within nondilated bowel loops suggesting mild ileus formation. No obvious free air. No definite suspicious calcifications. No mass appreciated. RAD/Acute Abdomen Inc Chest IMPRESSION: Scattered air-fluid levels within nondilated bowel loops suggesting mild ileus formation. Chest with no acute disease. Electronically Signed: Wai Leonard MD at 0:35 EDT ,
[2022-07-20 00:19] VITALS: BP 113/71; PULSE 68; RESP 16; O2SAT 97
--- NOTE | 2022-07-20 01:17 | EX.ED.DYSGE1 ---
HPI History of Present Illness Chief Complaint: Chest Pain Narrative Narrative: Patient is a 22-year-old female with past medical history of of hypothyroidism and bipolar disorder as well as POTS. She states she underwent EGD today. She states that she believes the procedure went smoothly without any difficulty. However a few hours after the procedure she noticed some discomfort in her chest and neck. She states that she read the pamphlet given to her at discharge and recommended that if she develops the symptoms she come in for evaluation. [facility] Medical History Anxiety Asthma Depression Diarrhea Endometriosis GERD (gastroesophageal reflux disease) Migraine OCD (obsessive compulsive disorder) Pelvic pain POTS (postural orthostatic tachycardia syndrome) PTSD (post-traumatic stress disorder) Schizophrenia Tachycardia Upper abdominal pain Home Medications albuterol sulfate 90 mcg/actuation aerosol inhaler 2 puff inhalation PRN PRN Wheezing 06/14/21 [History Last Taken Unknown] epinephrine 0.3 mg/0.3 mL injection, auto-injector 1 mg IM PRN PRN Allergic Reaction 06/14/21 [History Last Taken Unknown] aripiprazole 2 mg tablet 5 mg PO QHS 07/31/21 [History Last Taken Unknown] fluoxetine 10 mg capsule 3 cap PO DAILY 10/06/21 [History Last Taken Unknown] omeprazole 40 mg capsule,delayed release 40 mg PO DAILY #30 caps 12/08/21 [Rx Last Taken Unknown] diclofenac sodium 75 mg tablet,delayed release 75 mg PO BID PRN pain 01/04/22 [History Last Taken Unknown] medroxyprogesterone 150 mg/mL intramuscular suspension (Depo-Provera) 150 mg IM Q6W 01/04/22 [History Last Taken Unknown] topiramate 100 mg tablet 125 mg PO QHS 01/04/22 [History Last Taken Unknown] prazosin 1 mg capsule 2 mg PO DAILY 03/19/22 [History Last Taken Unknown] trazodone 50 mg tablet 50 mg PO QHS 03/19/22 [History Last Taken Unknown] dicyclomine 20 mg tablet 20 mg PO TID PRN cramps #14 tabs 03/25/22 [Rx Last Taken Unknown] promethazine 25 mg tablet 25 mg PO TID PRN nausea and vomiting #10 tabs 03/25/22 [Rx Last Taken Unknown] prochlorperazine maleate 10 mg tablet 10 mg PO BID PRN Nausea 04/29/22 [History Last Taken Unknown] pantoprazole 40 mg tablet,delayed release 40 mg PO DAILY #30 tabs 06/26/22 [Rx Last Taken Unknown] metronidazole 500 mg tablet mg 07/19/22 [History Last Taken Unknown] moxifloxacin 400 mg tablet mg 07/19/22 [History Last Taken Unknown] Allergy/AdvReac Type Severity Reaction Status Date / Time gabapentin Allergy Rash Verified 07/19/22 22:11 sertraline [From Zoloft] Allergy Anaphylaxis Verified 07/19/22 22:11 silicone Allergy Rash Verified 07/19/22 22:11 lactose AdvReac Upset Verified 07/19/22 22:11 Stomach NASAL SPRAY Allergy Severe Hives Uncoded 07/19/22 22:11 Family History Father Anxiety Depression Asthma Hypertension Mother Asthma Diabetes Anxiety Depression CAD (coronary artery disease) Myocardial infarction, Onset Age: 42 Brother Oleksandr-Danlos syndrome Grandmother Myocardial infarction, Onset Age: 41 Grandfather Myocardial infarction, Onset Age: 38 Surgical History History of colonoscopy History of esophagogastroduodenoscopy (EGD) Hx of laparoscopy Social History household members: none Smoking Status: Current every day smoker tobacco type: e-cigarettes alcohol intake: current alcohol intake frequency: holidays/special occasions only substance use type: does not use caffeine: Yes Type: carbonated beverages, coffee and tea ROS ROS ED Constitutional Constitutional ED: Denies chills or fever(s) ENT ENT ED: Reports sore throat Cardiovascular Cardiovascular: Reports chest pain; Denies palpitations Respiratory/Chest Respiratory/Chest: Denies cough or dyspnea Gastrointestinal Gastrointestinal: Reports nausea; Denies abdominal pain, diarrhea or vomiting Genitourinary Genitourinary ED: Denies dysuria Musculoskeletal Musculoskeletal: Reports neck pain; Denies myalgias Integumentary Denies rash Neurologic Neurologic: Denies headache(s) Hematologic/Lymphatic Hematologic/Lymphatic: Denies easy bleeding or easy bruising EXAM Physical Exam Const Vital Signs: 07/19/22 22:09 07/19/22 22:19 07/19/22 22:19 Temperature 98.7 F Temperature Source Temporal Pulse Rate 100 83 Respiratory Rate 18 18 Respiratory Effort Normal Non-Labored Blood Pressure 117/73 132/73 H Blood Pressure Mean 87 92 Pulse Ox 99 Oxygen Delivery Method Room Air Room Air 07/20/22 00:19 07/20/22 01:23 Temperature Temperature Source Pulse Rate 68 68 Respiratory Rate 16 18 Respiratory Effort Blood Pressure 113/71 109/63 Blood Pressure Mean 85 Pulse Ox 97 100 Oxygen Delivery Method Room Air Positive well nourished and well developed General Appearance ED: well developed HEENT Reports moist mucous membranes HEENT Narrative: No tongue or lip swelling no oral lesions no airway edema or compromise or signs of bleeding or infection posterior pharynx Eyes PERRL and EOMs intact bilaterally Neck supple Neck Narrative: No crepitance palpated Chest Wall palpation of chest normal Chest Narrative: No bony deformity or crepitance Resp normal respiratory effort and clear to auscultation bilaterally Cardio regular rate and regular rhythm GI normal to inspection, nondistended, normoactive bowel sounds, non-tender, non-distended and no masses GI Narrative: No voluntary guarding or rigidity Auscultation: normoactive bowel sounds Palpation: soft Extremity normal to inspection Neuro oriented x3 and CN's II-XII intact bilaterally Sensorium / Orientation: alert Psych mental status grossly normal Psych Narrative: No asymmetric edema no pitting edema negative Homans' sign bilaterally Skin no rashes or lesions noted MDM MDM MDM Narrative Medical decision making narrative: Patient presented to the ER with stable vitals. She reported throat and chest discomfort but after an EGD. Otherwise she is low risk for cardiovascular disease as well as DVT/PE and I do not feel there is need for blood work. With concern that this could be a perforation secondary to the EGD and biopsy she reports x-rays were obtained. X-rays revealed no acute finding. On reevaluation the patient is resting comfortably and has had resolution of her symptoms. Therefore as she is low risk for cardiovascular disease or DVT/PE and images show no signs of perforation she can be discharged home and follow-up on an outpatient basis History & Record Review Discussion w/independent historian: Patient Radiography Diagnostic Testing: Clinical Impression(s) from Imaging Studies Soft Tissue Neck X-Ray 07/19/22 22:46 IMPRESSION: Unremarkable cervical spine. If there is persistent clinical concern for spine fracture and this is a trauma patient, recommend dedicated cervical spine CT. Electronically Signed: Wai Leonard MD at 0:29 EDT , Acute Abdomen Series 07/19/22 23:10 IMPRESSION: Scattered air-fluid levels within nondilated bowel loops suggesting mild ileus formation. Chest with no acute disease. Electronically Signed: Wai Leonard MD at 0:35 EDT , Acute abdominal x-ray 1 view chest as interpreted by the emergency medicine physician reveals nonspecific nonobstructive bowel gas pattern and chest component reveals no acute pneumothorax infiltrate or pleural effusion Soft tissue neck x-ray as interpreted by the emergency medicine physician reveals no obvious perforation or obstruction Discharge Plan Triage Chief Complaint: Chest Pain ED Provider: Bryant Reyes Dx/Rx/DC Orders Clinical Impression: Hx of esophagogastroduodenoscopy, Acute nonspecific chest pain with low risk of coronary artery disease Instructions: ED Chest Pain, Noncardiac Prescriptions: No Action diclofenac sodium 75 mg tablet,delayed release (DR/EC) 75 mg PO BID PRN (Reason: pain) topiramate 100 mg tablet 125 mg PO QHS medroxyprogesterone [Depo-Provera] 150 mg/mL suspension 150 mg IM Q6W Label Comments: INJECT 1ML INTRAMUSCULARILY EVERY 12 WEEKS epinephrine 0.3 mg/0.3 mL auto-injector 1 mg IM PRN PRN (Reason: Allergic Reaction) Label Comments: INJECT INTO THE MUSCLE NEEDED FOR ANAPHYLAXIS REACTION albuterol sulfate 90 mcg/actuation HFA aerosol inhaler 2 puff INHALATION PRN PRN (Reason: Wheezing) Label Comments: inhale 2 puffs by mouth and INTO THE LUNGS every 4 hours if neede... (REFER TO PRESCRIPTION NOTES). aripiprazole 2 mg tablet 5 mg PO QHS fluoxetine 10 mg capsule 3 cap PO DAILY omeprazole 40 mg capsule,delayed release(DR/EC) 40 mg PO DAILY Qty: 30 0RF trazodone 50 mg tablet 50 mg PO QHS Label Comments: TAKE 1 OR 2 TABLETS BY MOUTH AT BEDTIME prazosin 1 mg capsule 2 mg PO DAILY Label Comments: take 1 capsule by mouth twice a day dicyclomine 20 mg tablet 20 mg PO TID PRN (Reason: cramps) Qty: 14 0RF promethazine 25 mg tablet 25 mg PO TID PRN (Reason: nausea and vomiting) Qty: 10 0RF prochlorperazine maleate 10 mg tablet 10 mg PO BID PRN (Reason: Nausea) Label Comments: take 1 tablet by mouth every 8 hours if needed for NAUSEA/VOMITTING pantoprazole 40 mg tablet,delayed release (DR/EC) 40 mg PO DAILY Qty: 30 0RF moxifloxacin 400 mg tablet metronidazole 500 mg tablet Primary Care Provider: Sandra Medina Referrals: Sandra Medina, [employer] [Primary Care Provider] - Activity Restrictions/Additional Instructions: Your exam and history indicates that the neck and throat/chest pain is secondary to irritation from your recent EGD. Your x-ray showed no signs of perforation or free air or complication from the procedure. The symptoms should improve over the next 3 to 5 days and return to the ER should you have any further concerns Disposition Disposition: Home, Self Care Discharge Date/Time: 07/20/22 01:23
[2022-07-20 01:23] VITALS: BP 109/63; PULSE 68; RESP 18; O2SAT 100
== END 2022-07-20 01:23 | disposition home or self-care (01) ==
PROVIDERS: Emergency Provider Emergency Medicine; PCP Nurse Practitioner Family; Visit Provider Emergency Medicine
DX: R07.9 Chest pain, unspecified (principal); F20.9 Schizophrenia, unspecified; F31.9 Bipolar disorder, unspecified; F17.210 Nicotine dependence, cigarettes, uncomplicated; Z82.5 Family history of asthma and other chronic lower respiratory diseases; Z98.890 Other specified postprocedural states; F41.9 Anxiety disorder, unspecified; J45.909 Unspecified asthma, uncomplicated; K21.9 Gastro-esophageal reflux disease without esophagitis
CPT/HCPCS: 70360; 74022; 99283

== ENCOUNTER → 2022-07-23 | Outpatient (CLI) | payer MEDICAID, SELFPAY ==
[2022-07-23 11:48] LABS: Insulin 27.9 mU/L (2.6-37.6)
== END | disposition home or self-care (01) ==
LOC: LAB 10:34
DX: R42 Dizziness and giddiness (principal)
CPT/HCPCS: 36415; 83525

== ENCOUNTER 2022-07-27 18:41 | Emergency (ER) | payer MEDICAID, SELFPAY ==
[2022-07-27 18:42] VITALS: BP 109/69; PULSE 83; RESP 16; TEMP 36.9; O2SAT 99; BMI 29.2
--- NOTE | 2022-07-27 18:57 | EX.ED.GENINJ ---
HPI History of Present Illness Chief Complaint: GI Bleed Narrative Narrative: 22-year-old female here with concern for GI bleed, nausea and vomiting Patient states blood in her stool started yesterday. Notes diarrhea as well. Notes fatigue. States has been having abdominal pain for several months. She states the pain has been intermittent with no alleviating factors. She states she came in today because she noticed some blood in her stool. She denies taking a blood thinner. [facility] Medical History Anxiety Asthma Depression Diarrhea Endometriosis GERD (gastroesophageal reflux disease) Migraine OCD (obsessive compulsive disorder) Pelvic pain POTS (postural orthostatic tachycardia syndrome) PTSD (post-traumatic stress disorder) Schizophrenia Tachycardia Upper abdominal pain Home Medications albuterol sulfate 90 mcg/actuation aerosol inhaler 2 puff inhalation PRN PRN Wheezing 06/14/21 [History Last Taken Unknown] epinephrine 0.3 mg/0.3 mL injection, auto-injector 1 mg IM PRN PRN Allergic Reaction 06/14/21 [History Last Taken Unknown] aripiprazole 2 mg tablet 5 mg PO QHS 07/31/21 [History Last Taken Unknown] fluoxetine 10 mg capsule 3 cap PO DAILY 10/06/21 [History Last Taken Unknown] omeprazole 40 mg capsule,delayed release 40 mg PO DAILY #30 caps 12/08/21 [Rx Last Taken Unknown] diclofenac sodium 75 mg tablet,delayed release 75 mg PO BID PRN pain 01/04/22 [History Last Taken Unknown] medroxyprogesterone 150 mg/mL intramuscular suspension (Depo-Provera) 150 mg IM Q6W 01/04/22 [History Last Taken Unknown] topiramate 100 mg tablet 125 mg PO QHS 01/04/22 [History Last Taken Unknown] prazosin 1 mg capsule 2 mg PO DAILY 03/19/22 [History Last Taken Unknown] trazodone 50 mg tablet 50 mg PO QHS 03/19/22 [History Last Taken Unknown] dicyclomine 20 mg tablet 20 mg PO TID PRN cramps #14 tabs 03/25/22 [Rx Last Taken Unknown] promethazine 25 mg tablet 25 mg PO TID PRN nausea and vomiting #10 tabs 03/25/22 [Rx Last Taken Unknown] prochlorperazine maleate 10 mg tablet 10 mg PO BID PRN Nausea 04/29/22 [History Last Taken Unknown] pantoprazole 40 mg tablet,delayed release 40 mg PO DAILY #30 tabs 06/26/22 [Rx Last Taken Unknown] metronidazole 500 mg tablet mg 07/19/22 [History Last Taken Unknown] moxifloxacin 400 mg tablet mg 07/19/22 [History Last Taken Unknown] Allergy/AdvReac Type Severity Reaction Status Date / Time gabapentin Allergy Rash Verified 07/27/22 18:42 sertraline [From Zoloft] Allergy Anaphylaxis Verified 07/27/22 18:42 silicone Allergy Rash Verified 07/27/22 18:42 lactose AdvReac Upset Verified 07/27/22 18:42 Stomach NASAL SPRAY Allergy Severe Hives Uncoded 07/27/22 18:42 Family History Father Anxiety Depression Asthma Hypertension Mother Asthma Diabetes Anxiety Depression CAD (coronary artery disease) Myocardial infarction, Onset Age: 42 Brother Oleksandr-Danlos syndrome Grandmother Myocardial infarction, Onset Age: 41 Grandfather Myocardial infarction, Onset Age: 38 Surgical History History of colonoscopy History of esophagogastroduodenoscopy (EGD) Hx of laparoscopy Social History household members: none Smoking Status: Current every day smoker tobacco type: e-cigarettes alcohol intake: current alcohol intake frequency: holidays/special occasions only substance use type: does not use caffeine: Yes Type: carbonated beverages, coffee and tea ROS ROS ED ROS Narrative Constitutional: Denies fever, endorses fatigue HEENT: Denies sore throat Neck: Denies neck pain Cardiovascular: Denies chest pain, syncope Respiratory: Denies shortness of breath GI: Endorses chronic abdominal pain, nausea vomiting diarrhea, endorses blood in stool : Denies changes in urinary habits Musculoskeletal: Denies muscle or joint pain Neurologic: Denies numbness weakness or loss of sensation Skin denies rash EXAM Physical Exam Narrative Exam Narrative: Nursing triage notes reviewed, Vital signs reviewed Constitutional: please see mdm HENT: MMM Eyes: Pupils equal round and reactive to light, Extraocular muscles intact Neck: No stridor, no JVD, full neck ROM Lungs: Clear to auscultation, No wheezing or rales. No increased work of breathing, no conversational dyspnea, no accessory muscle use, no nasal flaring. No respiratory distress noted Heart: Regular rate and rhythm, No murmurs, No rubs and No gallops, 2+ distal pulses (radial, femoral, posterior tibial) in all extremities Abdomen: Soft, mild diffuse abdominal tenderness, rigidity, rebound or guarding, no obvious peritoneal signs, no palpable pulsatile abdominal masses, no auscultated abdominal bruit : No CVAT Rectal: Deferred by patient Extremities: No edema Neuro: No focal neurological deficits, cranial nerves II through XII intact, 5/5 strength in all extremities. Intact sensation to light touch in all extremities, 2+ reflexes bilateral patella dens. Normal gait. No ataxia. Skin: No rash or lesions noted Const Vital Signs: 07/27/22 18:42 Temperature 98.4 F Temperature Source Temporal Pulse Rate 83 Respiratory Rate 16 Blood Pressure 109/69 Blood Pressure Mean 82 Pulse Ox 99 Oxygen Delivery Method Room Air MDM MDM MDM Narrative Medical decision making narrative: Chief Complaint: Rectal bleeding, chronic abdominal pain External records reviewed: Frequent ED utilizer for ED visits for abdominal pain in the month of June. Acute abdominal series from 07/20/2022 showed IMPRESSION: Scattered air-fluid levels within nondilated bowel loops suggesting mild ileus formation. ? Chest with no acute disease. CT scan from 07/02/2022 shows no acute process I considered the following differential diagnosis: Acute intra-abdominal pathology, acute surgical intra-abdominal pathology, pancreatitis, , hepatobiliary pathology, ESE, electrolyte abnormality. The patient abdominal exam is benign. She had months of abdominal pain with prior negative imaging. Have a low suspicion for acute intra-abdominal surgical pathology at this time and as such I did not obtain a CT scan or other advanced imaging. I did obtain labs to rule out signs of systemic inflammation, signs of significant anemia given concern for GI bleeding, signs of pancreatitis, signs of , signs of renal dysfunction or other abnormality. Labs are unremarkable. Repeat abdominal exam remained benign. There is no clear life limiting etiology can be identified in the emergency department. Patient has stable vitals, benign exam and unremarkable labs. She is appropriate for outpatient follow-up. I see nothing that would suggest an acute abdomen at this time. Based on history physical exam, risk factors, I have a low for bowel obstruction, incarcerated hernia, acute pancreatitis, intra-abdominal abscess, perforated viscus, diverticulitis, cholecystitis, appendicitis, PID, ovarian torsion, ectopic and tubo-ovarian abscess is very low. There is no evidence of peritonitis sepsis or toxicity at this time. I feel the patient can be managed as an outpatient with follow-up with her primary physician in the next 24 to 48 hours or soon as possible. Instructions have been given for the patient to return to the ED for worsening pain high fevers intractable vomiting or bleeding Factors affecting care: History of bipolar disorder, chronic diarrhea, Social determinants of health: Poor health literacy History obtained from others: None Shared decision making: I will have a discussion with the patient and or visitors regarding risk/benefits of further testing or admission. They will be made aware of of the risk/benefits inherent in this decision they will be given the opportunity to voice understanding. Consults: None Lab Data Attestation: I reviewed the patient's lab results. Lab results narrative: CBC without leukocytosis, severe anemia, no thrombocytopenia. BMP with mild hypokalemia, no other electrolyte abnormalities, anion gap to suggest endorgan hypoperfusion or acute kidney injury LFTs show no evidence of hepatobiliary pathology. Lipase is wnl indicating no pancreatic inflammation. Urine test negative Labs: Laboratory Results - last 24 hr 07/27/22 07/27/22 07/27/22 19:10 19:10 19:40 WBC 5.2 RBC 4.89 Hgb 12.2 Hct 39.2 MCV 80.2 L MCH 24.9 L MCHC 31.1 L RDW Std Deviation 42.8 RDW Coeff of Anoop 14.6 Plt Count 323 MPV 9.2 Immature Gran % (Auto) 0.200 Neut % (Auto) 52.7 Lymph % (Auto) 34.1 Robertson % (Auto) 11.6 H Eos % (Auto) 1.0 Baso % (Auto) 0.4 Absolute Neuts (auto) 2.7 Absolute Lymphs (auto) 1.77 Nucleated RBC % 0 Sodium 139 Potassium 3.3 L Chloride 109 H Carbon Dioxide 24.0 Anion Gap 6 BUN 4 L Creatinine 0.95 Estim Creat Clear Calc 80.89 Est GFR (MDRD) Af Amer 96 Est GFR (MDRD) Non-Af 79 BUN/Creatinine Ratio 4.2 L Glucose 114 H Calcium 8.5 Total Bilirubin 0.20 AST 20 ALT 27 Alkaline Phosphatase 73 Total Protein 6.5 Albumin 3.2 Globulin 3.3 Albumin/Globulin Ratio 1.0 Lipase 18 Urine Test Negative Discharge Plan Triage Chief Complaint: GI Bleed Other Complaint: Nausea/Vomiting ED Provider: Benjamín Emanuel Dx/Rx/DC Orders Clinical Impression: Hematochezia, Acute hypokalemia Instructions: ED Diet Vomiting Diarrhea, ED Hypokalemia Prescriptions: No Action diclofenac sodium 75 mg tablet,delayed release (DR/EC) 75 mg PO BID PRN (Reason: pain) topiramate 100 mg tablet 125 mg PO QHS medroxyprogesterone [Depo-Provera] 150 mg/mL suspension 150 mg IM Q6W Label Comments: INJECT 1ML INTRAMUSCULARILY EVERY 12 WEEKS epinephrine 0.3 mg/0.3 mL auto-injector 1 mg IM PRN PRN (Reason: Allergic Reaction) Label Comments: INJECT INTO THE MUSCLE NEEDED FOR ANAPHYLAXIS REACTION albuterol sulfate 90 mcg/actuation HFA aerosol inhaler 2 puff INHALATION PRN PRN (Reason: Wheezing) Label Comments: inhale 2 puffs by mouth and INTO THE LUNGS every 4 hours if neede... (REFER TO PRESCRIPTION NOTES). aripiprazole 2 mg tablet 5 mg PO QHS fluoxetine 10 mg capsule 3 cap PO DAILY omeprazole 40 mg capsule,delayed release(DR/EC) 40 mg PO DAILY Qty: 30 0RF trazodone 50 mg tablet 50 mg PO QHS Label Comments: TAKE 1 OR 2 TABLETS BY MOUTH AT BEDTIME prazosin 1 mg capsule 2 mg PO DAILY Label Comments: take 1 capsule by mouth twice a day dicyclomine 20 mg tablet 20 mg PO TID PRN (Reason: cramps) Qty: 14 0RF promethazine 25 mg tablet 25 mg PO TID PRN (Reason: nausea and vomiting) Qty: 10 0RF prochlorperazine maleate 10 mg tablet 10 mg PO BID PRN (Reason: Nausea) Label Comments: take 1 tablet by mouth every 8 hours if needed for NAUSEA/VOMITTING pantoprazole 40 mg tablet,delayed release (DR/EC) 40 mg PO DAILY Qty: 30 0RF moxifloxacin 400 mg tablet metronidazole 500 mg tablet Stand Alone Forms: ED Work / School Excuse Primary Care Provider: [facility] Sury Queen Referrals: [facility],Sury Catherine [Primary Care Provider] - Activity Restrictions/Additional Instructions: Thank you for trusting us with your care today! Please continue take Phenergan as needed for nausea and vomiting. Please take Tylenol (2 pills, 650 mg), ibuprofen (2 pills, 400 mg) every 6 hours as needed for pain and fever control. Please return to the emergency department if your symptoms change or worsen. Please follow with your primary care physician for further outpatient evaluation and management. Disposition Disposition: Home, Self Care
--- NOTE | 2022-07-27 18:58 | EKG12_ITS ---
Test Reason : DYSRHYTHMIA Blood Pressure : / mmHG Vent. Rate : 077 BPM Atrial Rate : 077 BPM P-R Int : 152 ms QRS Dur : 076 ms QT Int : 414 ms P-R-T Axes : 050 040 006 degrees QTc Int : 468 ms Normal sinus rhythm Nonspecific T wave abnormality Prolonged QT Abnormal ECG Confirmed by CHRISTEN SOLANO ([id number]), managing editor BRITTA SHI ([id number]) on 07/31/2022 7:55:41 AM Referred By: Confirmed By:CHRISTEN SOLANO
[2022-07-27 19:21] LABS: Absolute Lymphocyte Count 1.77 X10^3/uL (0.83-4.51); Absolute Neutrophil Count 2.7 X10^3/uL (2.0-7.7); Basophil# 0.02 X10^3/uL; Basophil% 0.4 % (0-1); Eosinophil# 0.05 X10^3/uL; Hematocrit 39.2 % (37-47); Hemoglobin 12.2 g/dL (12.0-15.0); Lymphocyte # 1.77 X10^3/ul (0.83-4.51); Lymphocyte % 34.1 % (19-41); Mean Corp Hgb Conc 31.1 g/dL (32-36); Mean Corpuscular Hgb 24.9 pg (27.0-32.0); Mean Corpuscular Volume 80.2 fL (81-99); Mean Platelet Vol. 9.2 fl (6.2-12.0); Monocyte% 11.6 % (0-10); NRBC Flagged by Analyzer 0 % (0-5); Neutrophil # 2.74 X10^3/uL (2.7-7.7); Neutrophil % 52.7 % (47-70); Platelet Count 323 K/mm3 (150-450); RBC Distribution Width CV 14.6 % (11.6-14.6); RBC Distribution Width SD 42.8 fl (35.1-43.9); Red Blood Count 4.89 M/mm3 (4.2-5.4); White Blood Count 5.2 K/mm3 (4.4-11.0)
[2022-07-27] MEDS: Ondansetron 4 MG/2 ML Vial IV (19:21)
[2022-07-27] MEDS: 0.9% Normal Saline 1,000 ML 1000 ML IV (19:21)
[2022-07-27 19:40] LABS: AST(SGOT) 20 U/L (15-37); Alanine Aminotransfer ALT/SGPT 27 U/L (13-56); Albumin, Serum 3.2 g/dL (3.2-5.0); Alkaline Phosphatase 73 U/L (45-117); Anion Gap 6 (5-15); BUN 4 mg/dL (7-18); BUN/Creat Ratio 4.2 RATIO (10-20); Calcium,Total 8.5 mg/dL (8.5-10.1); Chloride 109 mmol/L (98-107); Creatinine, Serum 0.95 mg/dL (0.55-1.02); EST Glomerular Filtration Rate 79 mL/min (>60); Est Glom Filt Rate - Afr Amer 96 mL/min (>60); Estimated Creatinine Clearance 80.89 ml/min; Globulin 3.3 g/dL (2.2-4.2); Glucose 114 mg/dL (74-106); Lipase 18 U/L (13-75); Potassium 3.3 mmol/L (3.5-5.1); Protein, Total 6.5 g/dL (6.4-8.2); Sodium Level 139 mmol/L (136-145)
[2022-07-27 19:52] LABS: Internal QC Validated? YES +Cl - CLEAR BKGD; Pregnancy, Urine Negative Negative
== END 2022-07-27 21:08 | disposition home or self-care (01) ==
PROVIDERS: Emergency Provider Emergency Medicine; Visit Provider Emergency Medicine
DX: R19.5 Other fecal abnormalities (principal); F20.9 Schizophrenia, unspecified; E87.6 Hypokalemia; J45.909 Unspecified asthma, uncomplicated; Z79.899 Other long term (current) drug therapy; F32.A Depression, unspecified; K21.9 Gastro-esophageal reflux disease without esophagitis; Z79.3 Long term (current) use of hormonal contraceptives; G43.909 Migraine, unspecified, not intractable, without status migrainosus; F17.290 Nicotine dependence, other tobacco product, uncomplicated
CPT/HCPCS: 80053; 81025; 83690; 85025; 93005; 99282; J7030; J2405

== ENCOUNTER → 2022-08-07 | Outpatient (CLI) | payer MEDICAID, SELFPAY ==
--- NOTE | 2022-08-07 12:54 | NM_ITS ---
CLINICAL: 22-year-old female with history of clinical gastroparesis. SEMI-SOLID PHASE 99m Tc SULFUR COLLOID GASTRIC EMPTYING STUDY COMPARISON: None available FINDINGS: The patient was administered 1.1 mCi of 99m Tc sulfur colloid mixed with oatmeal and consumed per os. Image acquisitions in the anterior-posterior projections were obtained for 60 minutes. There is prompt visualization of the stomach. There is no gastroesophageal reflux identified. First order kinetics are maintained throughout the duration of the acquisitions. The T ? linear fit was calculated to be 73.45 minutes, (Normal: 12-56 minutes). NM/Gastric Emptying Study IMPRESSION: 1. ABNORMAL 99m Tc sulfur colloid semi-solid phase (oatmeal) gastric emptying imaging examination. A. There is delayed semi-solid phase gastric emptying compared to normal controls with maintained first order kinetics throughout all components of the examination. (Kiah et al, J Nucl Med Tech 38: 186, 2010). Electronically Signed: Zack Helm, at 23:07 EDT ,
== END | disposition home or self-care (01) ==
LOC: NM 12:54
PROVIDERS: Referring Provider Internal Medicine Gastroenterology; Visit Provider Internal Medicine Gastroenterology
DX: K31.84 Gastroparesis (principal)
CPT/HCPCS: 78264; A9541

== ENCOUNTER → 2022-08-13 | Outpatient (CLI) | payer MEDICAID, SELFPAY | END | disposition home or self-care (01) | PROVIDERS: Referring Provider Internal Medicine Gastroenterology; Visit Provider Internal Medicine Gastroenterology | DX: R19.7 Diarrhea, unspecified (principal) | CPT/HCPCS: 36415 ==

== ENCOUNTER 2022-08-31 19:57 | Emergency (ER) | payer MEDICAID, SELFPAY ==
[2022-08-31 19:58] VITALS: BP 110/69; PULSE 76; RESP 18; TEMP 36.6; O2SAT 99; BMI 27.3
--- NOTE | 2022-08-31 20:25 | EKG12_ITS ---
Test Reason : DYSRHYTHMIA Blood Pressure : / mmHG Vent. Rate : 065 BPM Atrial Rate : 065 BPM P-R Int : 140 ms QRS Dur : 070 ms QT Int : 406 ms P-R-T Axes : 043 032 003 degrees QTc Int : 422 ms Normal sinus rhythm Normal ECG Confirmed by SALLY COOL, HUBER ([id number]), editorial clerk BRITTA SHI ([id number]) on 09/03/2022 10:49:34 AM Referred By: GILDA Confirmed By:HUBER ZAVALA MD
--- NOTE | 2022-08-31 20:27 | EDS_ITS ---
HPI History of Present Illness Chief Complaint: Chest Pain Informant: patient Onset/Context/Timing Onset: Days Context: Gradual Onset Narrative Narrative: Patient presents secondary to chest pain. She states 3 days ago she noted some pain in the sternal area after taking a pill. She thought it got stuck in her lower esophagus. Since that time pain is now radiated up to her neck as well as around the underside of each breast around her chest. She does feel short of breath. She has had a headache for the last 3 weeks but is unsure if that is related. [facility] Medical History Anxiety Asthma Depression Diarrhea Endometriosis GERD (gastroesophageal reflux disease) Migraine OCD (obsessive compulsive disorder) Pelvic pain POTS (postural orthostatic tachycardia syndrome) PTSD (post-traumatic stress disorder) Schizophrenia Tachycardia Upper abdominal pain Home Medications albuterol sulfate 90 mcg/actuation aerosol inhaler 2 puff inhalation PRN PRN Wheezing 06/14/21 [History Last Taken Unknown] epinephrine 0.3 mg/0.3 mL injection, auto-injector 1 mg IM PRN PRN Allergic Reaction 06/14/21 [History Last Taken Unknown] aripiprazole 2 mg tablet 5 mg PO QHS 07/31/21 [History Last Taken Unknown] fluoxetine 10 mg capsule 3 cap PO DAILY 10/06/21 [History Last Taken Unknown] omeprazole 40 mg capsule,delayed release 40 mg PO DAILY #30 caps 12/08/21 [Rx Last Taken Unknown] diclofenac sodium 75 mg tablet,delayed release 75 mg PO BID PRN pain 01/04/22 [History Last Taken Unknown] medroxyprogesterone 150 mg/mL intramuscular suspension (Depo-Provera) 150 mg IM Q6W 01/04/22 [History Last Taken Unknown] topiramate 100 mg tablet 125 mg PO QHS 01/04/22 [History Last Taken Unknown] prazosin 1 mg capsule 2 mg PO DAILY 03/19/22 [History Last Taken Unknown] trazodone 50 mg tablet 50 mg PO QHS 03/19/22 [History Last Taken Unknown] dicyclomine 20 mg tablet 20 mg PO TID PRN cramps #14 tabs 03/25/22 [Rx Last Taken Unknown] promethazine 25 mg tablet 25 mg PO TID PRN nausea and vomiting #10 tabs 03/25/22 [Rx Last Taken Unknown] prochlorperazine maleate 10 mg tablet 10 mg PO BID PRN Nausea 04/29/22 [History Last Taken Unknown] pantoprazole 40 mg tablet,delayed release 40 mg PO DAILY #30 tabs 06/26/22 [Rx Last Taken Unknown] metronidazole 500 mg tablet mg 07/19/22 [History Last Taken Unknown] moxifloxacin 400 mg tablet mg 07/19/22 [History Last Taken Unknown] metoclopramide HCl 5 mg tablet 2.5 mg PO QAC #15 tabs 08/08/22 [Rx Last Taken Unknown] pantoprazole 40 mg tablet,delayed release 40 mg PO BID #60 tabs 08/13/22 [Rx Last Taken Unknown] prochlorperazine 25 mg rectal suppository 25 mg MO Q12H 30 days #1,000 ea 08/13/22 [Rx Last Taken Unknown] sucralfate 100 mg/mL oral suspension 10 ml PO BID #1,000 mL 08/13/22 [Rx Last Taken Unknown] Allergy/AdvReac Type Severity Reaction Status Date / Time gabapentin Allergy Rash Verified 08/31/22 19:58 sertraline [From Zoloft] Allergy Anaphylaxis Verified 08/31/22 19:58 silicone Allergy Rash Verified 08/31/22 19:58 lactose AdvReac Upset Verified 08/31/22 19:58 Stomach NASAL SPRAY Allergy Severe Hives Uncoded 08/31/22 19:58 Family History Father Anxiety Depression Asthma Hypertension Mother Asthma Diabetes Anxiety Depression CAD (coronary artery disease) Myocardial infarction, Onset Age: 42 Brother Oleksandr-Danlos syndrome Grandmother Myocardial infarction, Onset Age: 41 Grandfather Myocardial infarction, Onset Age: 38 Surgical History History of colonoscopy History of esophagogastroduodenoscopy (EGD) Hx of laparoscopy Social History household members: none Smoking Status: Current every day smoker tobacco type: e-cigarettes alcohol intake: current alcohol intake frequency: holidays/special occasions only substance use type: does not use caffeine: Yes Type: carbonated beverages, coffee and tea ROS ROS ED Constitutional Constitutional ED: Denies chills or fever(s) Eyes Eyes: Denies change in vision or discharge from eye(s) ENT ENT ED: Reports ear pain; Denies discharge from eye(s), rhinorrhea or sore throat Cardiovascular Cardiovascular: Reports chest pain; Denies palpitations Respiratory/Chest Respiratory/Chest: Reports dyspnea; Denies cough Gastrointestinal Gastrointestinal: Denies abdominal pain, nausea or vomiting Genitourinary Genitourinary ED: Denies dysuria Musculoskeletal Musculoskeletal: Denies back pain or extremity pain Integumentary Denies Abrasions or rash Neurologic Neurologic: Denies headache(s) or weakness Psychiatric Psychiatric: Denies anxiety or depression Allergic/Immunologic Allergic/Immunologic ED: Denies lip swelling or urticaria EXAM Physical Exam Const Vital Signs: 08/31/22 19:58 Temperature 97.9 F Temperature Source Temporal Pulse Rate 76 Respiratory Rate 18 Blood Pressure 110/69 Blood Pressure Mean 82 Pulse Ox 99 Oxygen Delivery Method Room Air Positive well nourished and well developed General Appearance ED: well developed HEENT Reports normocephalic and head/scalp atraumatic Eyes PERRL and EOMs intact bilaterally Neck supple Chest Wall inspection of chest normal and palpation of chest normal Resp normal respiratory effort and clear to auscultation bilaterally Cardio regular rate and regular rhythm GI normal to inspection, nondistended, normoactive bowel sounds Palpation: soft Extremity normal to inspection Neuro oriented x3 and no sensory deficits noted Sensorium / Orientation: alert Motor Exam: strength 5/5 throughout Psych mental status grossly normal Skin no rashes or lesions noted MDM MDM MDM Narrative Medical decision making narrative: 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 EKG obtained to evaluate for cardiac arrhythmia/ischemia. Labwork obtained to evaluate for leukocytosis, anemia, and electrolyte derangement. Chest x-ray obtained to evaluate for acute lung patho logy, cardiac size, or mediastinal abnormality. Lab Data Attestation: I reviewed the patient's lab results. Labs: Laboratory Results - last 24 hr 08/31/22 08/31/22 08/31/22 20:30 20:30 20:30 WBC 5.6 RBC 5.20 Hgb 13.1 Hct 40.0 MCV 76.9 L MCH 25.2 L MCHC 32.8 RDW Std Deviation 38.0 RDW Coeff of Anoop 13.7 Plt Count 366 MPV 9.1 Immature Gran % (Auto) 0.200 Neut % (Auto) 59.1 Lymph % (Auto) 27.1 [place] % (Auto) 12.3 H Eos % (Auto) 0.9 Baso % (Auto) 0.4 Absolute Neuts (auto) 3.3 Absolute Lymphs (auto) 1.52 Nucleated RBC % 0 D-Dimer Quant (PE/DVT) Sodium 139 Potassium 3.7 Chloride 107 Carbon Dioxide 24.0 Anion Gap 8 BUN 4 L Creatinine 0.85 Estim Creat Clear Calc 90.41 Est GFR (MDRD) Af Amer 108 Est GFR (MDRD) Non-Af 90 BUN/Creatinine Ratio 4.7 L Glucose 90 Calcium 9.0 Troponin I High Sens < 3 L Serum , Qual NEGATIVE 08/31/22 20:30 WBC RBC Hgb Hct MCV MCH MCHC RDW Std Deviation RDW Coeff of Anoop Plt Count MPV Immature Gran % (Auto) Neut % (Auto) Lymph % (Auto) [place] % (Auto) Eos % (Auto) Baso % (Auto) Absolute Neuts (auto) Absolute Lymphs (auto) Nucleated RBC % D-Dimer Quant (PE/DVT) 0.27 Sodium Potassium Chloride Carbon Dioxide Anion Gap BUN Creatinine Estim Creat Clear Calc Est GFR (MDRD) Af Amer Est GFR (MDRD) Non-Af BUN/Creatinine Ratio Glucose Calcium Troponin I High Sens Serum , Qual Radiography Chest X-Ray - ED: 1 View, Read by ED Physician, Normal, Heart, Lungs and Mediastinum Diagnostic Testing: Clinical Impression(s) from Imaging Studies Chest X-Ray 08/31/22 20:35 IMPRESSION: No acute cardiopulmonary disease. Electronically Signed: Sumanth Pacheco MD at 20:56 EDT , EKG Initial EKG: Attestation: I personally reviewed and interpreted this EKG as follows: Interpretation: Sinus Rhythm (Sinus at 65 with no acute ischemia.) Differential Diagnosis Chest pain/SOB: pulmonary embolism Reason(s) PE less likely: Positive for D- Dimer negative, ACS ACS: Positive for no evidence of ACS based on cardiac biomarkers and EKG without ischemia and pneumothorax Reason(s) pneumothorax less likely: Positive for bilateral breath sounds and [employer] withhout PTX Treatment and Re-Evaluation :: Patient was given Toradol, Reglan, Benadryl for her headache. EKG is sinus rhythm with no acute ischemia. Lab work is unremarkable including normal D- dimer and troponin. Chest x-ray per my interpretation feels no acute findings. Radiology interpretation is reviewed and agrees. On repeat evaluation patient states her headache is much improved. She will be discharged home at this time with reassurance. She is scheduled to see a new physician at the [facility] next week. She will keep this appointment. Return instructions given. Discharge Plan Triage Chief Complaint: Chest Pain Other Complaint: Other, Pain/Inj Shortness of Breath ED Provider: Sridevi Varela Dx/Rx/DC Orders Clinical Impression: Atypical chest pain, Headache Instructions: ED Chest Pain, Noncardiac, ED, Migraine (Classical) Prescriptions: No Action diclofenac sodium 75 mg tablet,delayed release (DR/EC) 75 mg PO BID PRN (Reason: pain) topiramate 100 mg tablet 125 mg PO QHS medroxyprogesterone [Depo-Provera] 150 mg/mL suspension 150 mg IM Q6W Label Comments: INJECT 1ML INTRAMUSCULARILY EVERY 12 WEEKS metoclopramide HCl 5 mg tablet 2.5 mg PO QAC Qty: 15 2RF Rx Instructions: administer 30 minutes before meals prochlorperazine 25 mg suppository 25 mg MO Q12H 30 Days Qty: 1000 1RF sucralfate 100 mg/mL suspension 10 ml PO BID Qty: 1000 2RF pantoprazole 40 mg tablet,delayed release (DR/EC) 40 mg PO BID Qty: 60 3RF epinephrine 0.3 mg/0.3 mL auto-injector 1 mg IM PRN PRN (Reason: Allergic Reaction) Label Comments: INJECT INTO THE MUSCLE NEEDED FOR ANAPHYLAXIS REACTION albuterol sulfate 90 mcg/actuation HFA aerosol inhaler 2 puff INHALATION PRN PRN (Reason: Wheezing) Label Comments: inhale 2 puffs by mouth and INTO THE LUNGS every 4 hours if neede... (REFER TO PRESCRIPTION NOTES). aripiprazole 2 mg tablet 5 mg PO QHS fluoxetine 10 mg capsule 3 cap PO DAILY omeprazole 40 mg capsule,delayed release(DR/EC) 40 mg PO DAILY Qty: 30 0RF trazodone 50 mg tablet 50 mg PO QHS Label Comments: TAKE 1 OR 2 TABLETS BY MOUTH AT BEDTIME prazosin 1 mg capsule 2 mg PO DAILY Label Comments: take 1 capsule by mouth twice a day dicyclomine 20 mg tablet 20 mg PO TID PRN (Reason: cramps) Qty: 14 0RF promethazine 25 mg tablet 25 mg PO TID PRN (Reason: nausea and vomiting) Qty: 10 0RF prochlorperazine maleate 10 mg tablet 10 mg PO BID PRN (Reason: Nausea) Label Comments: take 1 tablet by mouth every 8 hours if needed for NAUSEA/VOMITTING pantoprazole 40 mg tablet,delayed release (DR/EC) 40 mg PO DAILY Qty: 30 0RF moxifloxacin 400 mg tablet metronidazole 500 mg tablet Primary Care Provider: Sury Catherine Referrals: Monica Patterson NP-C [Non-Staff] - [facility],Sury Catherine [Non-Staff] - Disposition Disposition: Home, Self Care
--- NOTE | 2022-08-31 20:35 | RAD_ITS ---
INDICATION: Chest pain. EXAMINATION/TECHNIQUE: X-RAY - XR Chest 1 View COMPARISON: July 19, 2022 chest x-ray with acute abdominal series. FINDINGS: LINES/DEVICES: None. LUNGS: No consolidation, edema or effusion. No pneumothorax. MEDIASTINUM AND CARDIOVASCULAR STRUCTURES: Cardiac silhouette not enlarged. Central airways and mediastinal contour are unremarkable. BONES AND SOFT TISSUES: Unremarkable for age. RAD/Chest 1 View (Portable) IMPRESSION: No acute cardiopulmonary disease. Electronically Signed: Sumanth Pacheco MD at 20:56 EDT ,
[2022-08-31 20:37] LABS: Absolute Lymphocyte Count 1.52 X10^3/uL (0.83-4.51); Absolute Neutrophil Count 3.3 X10^3/uL (2.0-7.7); Basophil# 0.02 X10^3/uL; Basophil% 0.4 % (0-1); Eosinophil# 0.05 X10^3/uL; Eosinophils% 0.9 % (0-5); Hemoglobin 13.1 g/dL (12.0-15.0); Lymphocyte # 1.52 X10^3/ul (0.83-4.51); Lymphocyte % 27.1 % (19-41); Mean Corp Hgb Conc 32.8 g/dL (32-36); Mean Corpuscular Hgb 25.2 pg (27.0-32.0); Mean Corpuscular Volume 76.9 fL (81-99); Mean Platelet Vol. 9.1 fl (6.2-12.0); Monocyte# 0.69 X10^3/uL; Monocyte% 12.3 % (0-10); NRBC Flagged by Analyzer 0 % (0-5); Neutrophil # 3.31 X10^3/uL (2.7-7.7); Neutrophil % 59.1 % (47-70); Platelet Count 366 K/mm3 (150-450); RBC Distribution Width CV 13.7 % (11.6-14.6); White Blood Count 5.6 K/mm3 (4.4-11.0)
[2022-08-31] MEDS: Ketorolac 30 MG/ML Syringe IV (20:40)
[2022-08-31] MEDS: DiphenhydrAMINE 50 MG/ML Syringe 12.5 MG IV (20:40)
[2022-08-31] MEDS: Metoclopramide 10 MG/2 ML Vial 5 MG IV (20:41)
[2022-08-31 20:50] LABS: D-Dimer Quantitative (DVT/PE) 0.27 FEU/ug/m (0.27-0.49)
[2022-08-31 20:52] LABS: Internal QC Validated? YES +Cl - CLEAR BKGD; Pregnancy, Serum, hCG Quali. NEGATIVE Negative
[2022-08-31 20:56] LABS: Anion Gap 8 (5-15); BUN 4 mg/dL (7-18); BUN/Creat Ratio 4.7 RATIO (10-20); Chloride 107 mmol/L (98-107); Creatinine, Serum 0.85 mg/dL (0.55-1.02); EST Glomerular Filtration Rate 90 mL/min (>60); Est Glom Filt Rate - Afr Amer 108 mL/min (>60); Estimated Creatinine Clearance 90.41 ml/min; Glucose 90 mg/dL (74-106); Potassium 3.7 mmol/L (3.5-5.1); Sodium Level 139 mmol/L (136-145); Troponin-I HS < 3 pg/mL (3.0-54.0)
[2022-08-31 21:00] VITALS: O2SAT 98
[2022-08-31 22:07] VITALS: BP 109/74; PULSE 78; RESP 16; O2SAT 100
== END 2022-08-31 22:09 | disposition home or self-care (01) ==
PROVIDERS: Emergency Provider Emergency Medicine; Visit Provider Emergency Medicine
DX: R07.89 Other chest pain (principal); F20.9 Schizophrenia, unspecified; R51.9 Headache, unspecified; J45.909 Unspecified asthma, uncomplicated; Z79.899 Other long term (current) drug therapy; F32.A Depression, unspecified; F42.9 Obsessive-compulsive disorder, unspecified; K21.9 Gastro-esophageal reflux disease without esophagitis; Z79.3 Long term (current) use of hormonal contraceptives; F41.9 Anxiety disorder, unspecified; F17.290 Nicotine dependence, other tobacco product, uncomplicated
CPT/HCPCS: 71045; 80048; 84484; 84703; 85025; 85379; 93005; 96374; 96375; 99284; J7050; A4216

== ENCOUNTER 2022-09-07 14:10 | Emergency (ER) | payer MEDICAID, SELFPAY ==
[2022-09-07 14:10] VITALS: BP 122/88; PULSE 89; RESP 14; TEMP 35.7; O2SAT 99; BMI 26.7
[2022-09-07] MEDS: Ondansetron 4 MG/2 ML Vial IV (15:16)
[2022-09-07] MEDS: Dicyclomine 20 MG/2 ML Vial IM (15:17)
[2022-09-07 15:21] LABS: Absolute Lymphocyte Count 1.57 X10^3/uL (0.83-4.51); Absolute Neutrophil Count 5.1 X10^3/uL (2.0-7.7); Basophil# 0.02 X10^3/uL; Basophil% 0.3 % (0-1); Eosinophil# 0.02 X10^3/uL; Eosinophils% 0.3 % (0-5); Hematocrit 40.4 % (37-47); Hemoglobin 12.9 g/dL (12.0-15.0); Lymphocyte # 1.57 X10^3/ul (0.83-4.51); Lymphocyte % 21.3 % (19-41); Mean Corp Hgb Conc 31.9 g/dL (32-36); Mean Corpuscular Hgb 24.5 pg (27.0-32.0); Mean Corpuscular Volume 76.8 fL (81-99); Monocyte# 0.64 X10^3/uL; Monocyte% 8.7 % (0-10); NRBC Flagged by Analyzer 0 % (0-5); Neutrophil % 69.1 % (47-70); Platelet Count 383 K/mm3 (150-450); RBC Distribution Width CV 13.6 % (11.6-14.6); RBC Distribution Width SD 37.9 fl (35.1-43.9); Red Blood Count 5.26 M/mm3 (4.2-5.4); White Blood Count 7.4 K/mm3 (4.4-11.0)
[2022-09-07] MEDS: 0.9% Normal Saline 1,000 ML 999 ML IV (15:35)
--- NOTE | 2022-09-07 15:36 | ED.RN ---
PT STATES SHE DOES NOT WANT THE REGLAN DUE TO BENTYL AND ZOFRAN MAKING HER FEEL BETTER. THIS RN EDUCATED PT THAT REGLAN COULD FURTHER IMPROVE HER NAUSEA. PT STATES SHE WANTS TO HOLD OFF FOR NOW. DR. CONNELLY AWARE.
[2022-09-07 15:37] LABS: ALB/GLOB Ratio 0.8 RATIO (0.9-2.4); AST(SGOT) 12 U/L (15-37); Alanine Aminotransfer ALT/SGPT 20 U/L (13-56); Albumin, Serum 3.5 g/dL (3.2-5.0); Alkaline Phosphatase 87 U/L (45-117); Anion Gap 7 (5-15); BUN 9 mg/dL (7-18); BUN/Creat Ratio 11.6 RATIO (10-20); Calcium,Total 9.3 mg/dL (8.5-10.1); Chloride 106 mmol/L (98-107); Creatinine, Serum 0.78 mg/dL (0.55-1.02); EST Glomerular Filtration Rate 99 mL/min (>60); Est Glom Filt Rate - Afr Amer 120 mL/min (>60); Estimated Creatinine Clearance 98.52 ml/min; Globulin 4.2 g/dL (2.2-4.2); Glucose 101 mg/dL (74-106); Lipase 21 U/L (13-75); Potassium 3.6 mmol/L (3.5-5.1); Protein, Total 7.7 g/dL (6.4-8.2); Sodium Level 138 mmol/L (136-145)
[2022-09-07 16:10] LABS: Bacteria 0 SEEN /hpf (None Seen); Mucous, Urine 0 SEEN /hpf (<or=2+); Red Blood Cells-Urine 0 SEEN /hpf (0-5)
[2022-09-07 16:18] LABS: Color, Urine Yellow (Yellow); Glucose, Dipstick Normal (Normal); Ketone-Dipstick Negative (Negative); Leukocyte Esterase-Dipstick 100 /ul (Negative); Nitrite-Dipstick Negative (Negative); Occult Blood-Urine Negative /ul (Negative); Protein-Dipstick Negative (Negative); Specific Gravity, Urine 1.025 (1.002-1.030); Urine Bilirubin Dipstick Negative (Negative); Urine Clarity Clear (Clear); Urine Urobilinogen Normal (Normal)
[2022-09-07 16:23] LABS: Internal QC Validated? YES +Cl - CLEAR BKGD; Pregnancy, Urine Negative Negative
--- NOTE | 2022-09-07 16:37 | EX.ED.DYSGE1 ---
HPI <TRINO Harvey - Last Filed: 09/07/22 17:29> History of Present Illness Chief Complaint: Abd Pain Narrative Narrative: Patient presenting today due to left upper quadrant abdominal pain, nausea, vomiting, and bright red blood in her stool that she has had since this morning. She reports that she has seen blood in her stool in the past and she has a history of hemorrhoids. She reports that she does have a history of chronic abdominal pain including gastroparesis. She denies any fever, chills, hematemesis, urinary symptoms, and diarrhea. PFSH <TRINO Harvey - Last Filed: 09/07/22 17:29> [facility] Medical History Anxiety Asthma Depression Diarrhea Endometriosis GERD (gastroesophageal reflux disease) Migraine OCD (obsessive compulsive disorder) Pelvic pain POTS (postural orthostatic tachycardia syndrome) PTSD (post-traumatic stress disorder) Schizophrenia Tachycardia Upper abdominal pain Home Medications albuterol sulfate 90 mcg/actuation aerosol inhaler 2 puff inhalation PRN PRN Wheezing 06/14/21 [History Last Taken Unknown] epinephrine 0.3 mg/0.3 mL injection, auto-injector 1 mg IM PRN PRN Allergic Reaction 06/14/21 [History Last Taken Unknown] aripiprazole 2 mg tablet 5 mg PO QHS 07/31/21 [History Last Taken Unknown] fluoxetine 10 mg capsule 3 cap PO DAILY 10/06/21 [History Last Taken Unknown] omeprazole 40 mg capsule,delayed release 40 mg PO DAILY #30 caps 12/08/21 [Rx Last Taken Unknown] diclofenac sodium 75 mg tablet,delayed release 75 mg PO BID PRN pain 01/04/22 [History Last Taken Unknown] medroxyprogesterone 150 mg/mL intramuscular suspension (Depo-Provera) 150 mg IM Q6W 01/04/22 [History Last Taken Unknown] topiramate 100 mg tablet 125 mg PO QHS 01/04/22 [History Last Taken Unknown] prazosin 1 mg capsule 2 mg PO DAILY 03/19/22 [History Last Taken Unknown] trazodone 50 mg tablet 50 mg PO QHS 03/19/22 [History Last Taken Unknown] dicyclomine 20 mg tablet 20 mg PO TID PRN cramps #14 tabs 03/25/22 [Rx Last Taken Unknown] promethazine 25 mg tablet 25 mg PO TID PRN nausea and vomiting #10 tabs 03/25/22 [Rx Last Taken Unknown] prochlorperazine maleate 10 mg tablet 10 mg PO BID PRN Nausea 04/29/22 [History Last Taken Unknown] pantoprazole 40 mg tablet,delayed release 40 mg PO DAILY #30 tabs 06/26/22 [Rx Last Taken Unknown] metronidazole 500 mg tablet mg 07/19/22 [History Last Taken Unknown] moxifloxacin 400 mg tablet mg 07/19/22 [History Last Taken Unknown] metoclopramide HCl 5 mg tablet 2.5 mg PO QAC #15 tabs 08/08/22 [Rx Last Taken Unknown] pantoprazole 40 mg tablet,delayed release 40 mg PO BID #60 tabs 08/13/22 [Rx Last Taken Unknown] prochlorperazine 25 mg rectal suppository 25 mg MT Q12H 30 days #1,000 ea 08/13/22 [Rx Last Taken Unknown] sucralfate 100 mg/mL oral suspension 10 ml PO BID #1,000 mL 08/13/22 [Rx Last Taken Unknown] ondansetron 4 mg disintegrating tablet 4 mg PO Q8H PRN PRN Nausea #10 tabs 09/07/22 [Rx Last Taken Unknown] Allergy/AdvReac Type Severity Reaction Status Date / Time gabapentin Allergy Rash Verified 09/07/22 15:00 sertraline [From Zoloft] Allergy Anaphylaxis Verified 09/07/22 15:00 silicone Allergy Rash Verified 09/07/22 15:00 lactose AdvReac Upset Verified 09/07/22 15:00 Stomach NASAL SPRAY Allergy Severe Hives Uncoded 09/07/22 15:00 Family History Father Anxiety Depression Asthma Hypertension Mother Asthma Diabetes Anxiety Depression CAD (coronary artery disease) Myocardial infarction, Onset Age: 42 Brother Oleksandr-Danlos syndrome Grandmother Myocardial infarction, Onset Age: 41 Grandfather Myocardial infarction, Onset Age: 38 Surgical History History of colonoscopy History of esophagogastroduodenoscopy (EGD) Hx of laparoscopy Social History household members: none Smoking Status: Current every day smoker tobacco type: e-cigarettes alcohol intake: current alcohol intake frequency: holidays/special occasions only substance use type: does not use caffeine: Yes Type: carbonated beverages, coffee and tea ROS <TRINO Harvey - Last Filed: 09/07/22 17:29> ROS ED Constitutional Constitutional ED: Denies chills or fever(s) Cardiovascular Cardiovascular: Denies chest pain Respiratory/Chest Respiratory/Chest: Denies cough or dyspnea Gastrointestinal Gastrointestinal: Reports abdominal pain, nausea, rectal bleeding and vomiting; Denies constipation or diarrhea Genitourinary Genitourinary ED: Denies dysuria, hematuria or urinary urgency Musculoskeletal Musculoskeletal: Denies arthralgias or myalgias Integumentary Denies abscess, Abrasions or rash Neurologic Neurologic: Denies dizziness or weakness EXAM <TRINO Harvey - Last Filed: 09/07/22 17:29> Physical Exam Const Vital Signs: 09/07/22 14:10 09/07/22 17:08 09/07/22 17:38 Temperature 96.3 F L Temperature Source Temporal Pulse Rate 89 59 L Respiratory Rate 14 17 18 Blood Pressure 122/88 H 115/75 116/76 Blood Pressure Mean 99 88 Pulse Ox 99 100 100 Oxygen Delivery Method Room Air Room Air Positive well nourished, well developed and no apparent distress General Appearance ED: well developed HEENT Reports normocephalic and head/scalp atraumatic Mouth ED: Yes moist mucous membranes normal Eyes PERRL and EOMs intact bilaterally Neck full ROM and supple Chest Wall inspection of chest normal Resp normal respiratory effort and clear to auscultation bilaterally Cardio regular rate and regular rhythm GI non-distended and no masses GI Narrative: Minimal left upper quadrant tenderness to palpation without any rigidity or guarding, no peritoneal signs. Palpation: soft Back/Spine normal ROM and normal to inspection Extremity normal to inspection and full ROM Neuro oriented x3, CN's II-XII intact bilaterally, moves all extremities, no focal motor deficits and no sensory deficits noted Sensorium / Orientation: awake and alert Psych mental status grossly normal and thought process normal Skin no rashes or lesions noted and no wounds <Dr. Gus Richard MD - Last Filed: 09/08/22 01:45> Physical Exam Const Vital Signs: 09/07/22 14:10 09/07/22 17:08 09/07/22 17:38 Temperature 96.3 F L Temperature Source Temporal Pulse Rate 89 59 L Respiratory Rate 14 17 18 Blood Pressure 122/88 H 115/75 116/76 Blood Pressure Mean 99 88 Pulse Ox 99 100 100 Oxygen Delivery Method Room Air Room Air [facility] <TRINO Harvey - Last Filed: 09/07/22 17:29> [facility] Narrative Medical decision making narrative: Patient presenting due to left upper quadrant pain, nausea, and vomiting that she has had since today. She also noticed bright red blood in her stool today but does have a history of hemorrhoids. She has declined a rectal examination here today. She has been seen in the ED multiple times over the past several months due to abdominal pain, this appears to be a chronic issue for the patient. She has had multiple CT scans of the abdomen and pelvis that were unremarkable. I have low suspicion for acute abdominal surgical pathology, I do not feel that any imaging is indicated today. Labs will be obtained to rule out leukocytosis, anemia, electrolyte abnormality, assess liver enzymes, assess kidney function. Labs overall are unremarkable. UA will be obtained to rule out UTI and is negative. Patient has been given Zofran. On repeat exam she reports that she feels better and no longer has any abdominal pain and would like to go home, she is tolerating p.o. fluids. Reports that she takes Reglan for her gastroparesis but recently ran out of her prescription, she was not able to get this filled until today and still needs to pick it up. She would like an additional prescription for Zofran. She does see Dr. Hdz, she is going to try to get in to see him sooner but does have an upcoming appointment. She will be discharged home in stable condition and is comfortable with plan. Lab Data Attestation: I reviewed the patient's lab results. Labs: Laboratory Results - last 24 hr 09/07/22 09/07/22 09/07/22 15:13 15:13 16:03 WBC 7.4 RBC 5.26 Hgb 12.9 Hct 40.4 MCV 76.8 L MCH 24.5 L MCHC 31.9 L RDW Std Deviation 37.9 RDW Coeff of Anoop 13.6 Plt Count 383 MPV 9.0 Immature Gran % (Auto) 0.300 Neut % (Auto) 69.1 Lymph % (Auto) 21.3 Mcnairy % (Auto) 8.7 Eos % (Auto) 0.3 Baso % (Auto) 0.3 Absolute Neuts (auto) 5.1 Absolute Lymphs (auto) 1.57 Nucleated RBC % 0 Sodium 138 Potassium 3.6 Chloride 106 Carbon Dioxide 25.0 Anion Gap 7 BUN 9 Creatinine 0.78 Estim Creat Clear Calc 98.52 Est GFR (MDRD) Af Amer 120 Est GFR (MDRD) Non-Af 99 BUN/Creatinine Ratio 11.6 Glucose 101 Calcium 9.3 Total Bilirubin 0.40 AST 12 L ALT 20 Alkaline Phosphatase 87 Total Protein 7.7 Albumin 3.5 Globulin 4.2 Albumin/Globulin Ratio 0.8 L Lipase 21 Urine Color Yellow Urine Clarity Clear Urine pH 6.0 Ur Specific Wilson 1.025 Urine Protein Negative Urine Glucose (UA) Normal Urine Ketones Negative Urine Occult Blood Negative Urine Nitrite Negative Urine Bilirubin Negative Urine Urobilinogen Normal Ur Leukocyte Esterase 100 H Urine RBC 0 SEEN Urine WBC 0-5 SEEN Ur Squamous Epith Cells 0-5 SEEN Urine Bacteria 0 SEEN Urine Mucus 0 SEEN Urine Test Negative <Dr. Gus Richard MD - Last Filed: 09/08/22 01:45> [facility] Lab Data Labs: Laboratory Results - last 24 hr 09/07/22 09/07/22 09/07/22 15:13 15:13 16:03 WBC 7.4 RBC 5.26 Hgb 12.9 Hct 40.4 MCV 76.8 L MCH 24.5 L MCHC 31.9 L RDW Std Deviation 37.9 RDW Coeff of Anoop 13.6 Plt Count 383 MPV 9.0 Immature Gran % (Auto) 0.300 Neut % (Auto) 69.1 Lymph % (Auto) 21.3 Mcnairy % (Auto) 8.7 Eos % (Auto) 0.3 Baso % (Auto) 0.3 Absolute Neuts (auto) 5.1 Absolute Lymphs (auto) 1.57 Nucleated RBC % 0 Sodium 138 Potassium 3.6 Chloride 106 Carbon Dioxide 25.0 Anion Gap 7 BUN 9 Creatinine 0.78 Estim Creat Clear Calc 98.52 Est GFR (MDRD) Af Amer 120 Est GFR (MDRD) Non-Af 99 BUN/Creatinine Ratio 11.6 Glucose 101 Calcium 9.3 Total Bilirubin 0.40 AST 12 L ALT 20 Alkaline Phosphatase 87 Total Protein 7.7 Albumin 3.5 Globulin 4.2 Albumin/Globulin Ratio 0.8 L Lipase 21 Urine Color Yellow Urine Clarity Clear Urine pH 6.0 Ur Specific Wilson 1.025 Urine Protein Negative Urine Glucose (UA) Normal Urine Ketones Negative Urine Occult Blood Negative Urine Nitrite Negative Urine Bilirubin Negative Urine Urobilinogen Normal Ur Leukocyte Esterase 100 H Urine RBC 0 SEEN Urine WBC 0-5 SEEN Ur Squamous Epith Cells 0-5 SEEN Urine Bacteria 0 SEEN Urine Mucus 0 SEEN Urine Test Negative Treatment and Re-Evaluation Comments:: Seen and evaluated independently and in conjunction with physician assistant superintendent. Agree with notes above unless documented otherwise. Left upper quadrant pain, saw some blood in the toilet. She has had chronically intermittent abdominal pain, she states that this location is a little different. Usually does not have blood although that is happened before as well. Does not feel like she has a hemorrhoid. States she was recently diagnosed with gastroparesis and placed on Reglan, she ran out of it around the time this pain started a couple days ago. She states she recently refilled it and it is waiting for her to package pick up at a local pharmacy. Benign exam. Soft, mild tenderness in the left upper quadrant without guarding or rebound, no other areas of tenderness including the left lower quadrant. Labs are unremarkable, patient has had multiple CT scans for abdominal pain in the past, never have showed anything acute, and I do not think she needs to have another CT scan now given her benign exam, and it is not necessarily indicated since she is having small amount of bright red blood per rectum. Recommend outpatient follow-up for now, she was offered Reglan here but declined it, prescribe Zofran in addition to use as needed. Discharge Plan Triage Chief Complaint: Abd Pain Other Complaint: GI Bleed ED Midlevel Provider: Zeny Kim ED Provider: Gus Richard Dx/Rx/DC Orders Clinical Impression: Abdominal pain, Nausea & vomiting, Hematochezia Instructions: ED Hemorrhoids, ED Vomiting (Adult) Prescriptions: New ondansetron 4 mg tablet,disintegrating 4 mg PO Q8H PRN PRN (Reason: Nausea) Qty: 10 0RF No Action diclofenac sodium 75 mg tablet,delayed release (DR/EC) 75 mg PO BID PRN (Reason: pain) topiramate 100 mg tablet 125 mg PO QHS medroxyprogesterone [Depo-Provera] 150 mg/mL suspension 150 mg IM Q6W Label Comments: INJECT 1ML INTRAMUSCULARILY EVERY 12 WEEKS metoclopramide HCl 5 mg tablet 2.5 mg PO QAC Qty: 15 2RF Rx Instructions: administer 30 minutes before meals prochlorperazine 25 mg suppository 25 mg MT Q12H 30 Days Qty: 1000 1RF sucralfate 100 mg/mL suspension 10 ml PO BID Qty: 1000 2RF pantoprazole 40 mg tablet,delayed release (DR/EC) 40 mg PO BID Qty: 60 3RF epinephrine 0.3 mg/0.3 mL auto-injector 1 mg IM PRN PRN (Reason: Allergic Reaction) Label Comments: INJECT INTO THE MUSCLE NEEDED FOR ANAPHYLAXIS REACTION albuterol sulfate 90 mcg/actuation HFA aerosol inhaler 2 puff INHALATION PRN PRN (Reason: Wheezing) Label Comments: inhale 2 puffs by mouth and INTO THE LUNGS every 4 hours if neede... (REFER TO PRESCRIPTION NOTES). aripiprazole 2 mg tablet 5 mg PO QHS fluoxetine 10 mg capsule 3 cap PO DAILY omeprazole 40 mg capsule,delayed release(DR/EC) 40 mg PO DAILY Qty: 30 0RF trazodone 50 mg tablet 50 mg PO QHS Label Comments: TAKE 1 OR 2 TABLETS BY MOUTH AT BEDTIME prazosin 1 mg capsule 2 mg PO DAILY Label Comments: take 1 capsule by mouth twice a day dicyclomine 20 mg tablet 20 mg PO TID PRN (Reason: cramps) Qty: 14 0RF promethazine 25 mg tablet 25 mg PO TID PRN (Reason: nausea and vomiting) Qty: 10 0RF prochlorperazine maleate 10 mg tablet 10 mg PO BID PRN (Reason: Nausea) Label Comments: take 1 tablet by mouth every 8 hours if needed for NAUSEA/VOMITTING pantoprazole 40 mg tablet,delayed release (DR/EC) 40 mg PO DAILY Qty: 30 0RF moxifloxacin 400 mg tablet metronidazole 500 mg tablet Primary Care Provider: Sury Catherine Referrals: Friend,Damir, [Med Staff - Active Staff] - 3-5 Days if not improving Sury Catherine [Primary Care Provider] - Activity Restrictions/Additional Instructions: Please follow-up with Dr. Hdz and return for any worsening of symptoms. Disposition Disposition: Home, Self Care Discharge Date/Time: 09/07/22 17:38
[2022-09-07 16:40] LABS: Squamous Epithelial Cells - UA 0-5 SEEN /hpf (5-10); White Blood Cells 0-5 SEEN /hpf (0-5)
[2022-09-07 17:08] VITALS: BP 115/75; RESP 17; O2SAT 100
[2022-09-07 17:38] VITALS: BP 116/76; PULSE 59; RESP 18; O2SAT 100
== END 2022-09-07 17:38 | disposition home or self-care (01) ==
PROVIDERS: Physician Assistant; Emergency Provider Emergency Medicine; Visit Provider Emergency Medicine
DX: K92.1 Melena (principal); F20.9 Schizophrenia, unspecified; K31.84 Gastroparesis; R10.12 Left upper quadrant pain; R11.2 Nausea with vomiting, unspecified; J45.909 Unspecified asthma, uncomplicated; Z79.899 Other long term (current) drug therapy; F32.A Depression, unspecified; K21.9 Gastro-esophageal reflux disease without esophagitis; F42.9 Obsessive-compulsive disorder, unspecified; Z79.3 Long term (current) use of hormonal contraceptives; G43.909 Migraine, unspecified, not intractable, without status migrainosus; F17.290 Nicotine dependence, other tobacco product, uncomplicated
CPT/HCPCS: 80053; 81001; 81025; 83690; 85025; 99283; J7030; A4216; J2405

== ENCOUNTER 2022-09-20 09:24 | Emergency (ER) | payer MEDICAID, SELFPAY ==
[2022-09-20 09:24] VITALS: BP 125/88; PULSE 92; RESP 14; TEMP 36.3; O2SAT 99; BMI 26.7
[2022-09-20] MEDS: Ketorolac 60 MG/2 ML Vial IM (10:35)
[2022-09-20 10:41] LABS: Bacteria 0 SEEN /hpf (None Seen); Mucous, Urine 0 SEEN /hpf (<or=2+); Red Blood Cells-Urine 0 SEEN /hpf (0-5)
[2022-09-20 10:45] LABS: Color, Urine Yellow (Yellow); Glucose, Dipstick Normal (Normal); Ketone-Dipstick Negative (Negative); Leukocyte Esterase-Dipstick 500 /ul (Negative); Nitrite-Dipstick Negative (Negative); Occult Blood-Urine Negative /ul (Negative); Protein-Dipstick Negative (Negative); Specific Gravity, Urine 1.015 (1.002-1.030); Urine Bilirubin Dipstick Negative (Negative); Urine Clarity Sl. Cloudy (Clear); Urine Urobilinogen Normal (Normal)
[2022-09-20 10:52] LABS: Squamous Epithelial Cells - UA 0-5 SEEN /hpf (5-10); White Blood Cells 25-50 SEEN /hpf (0-5)
--- NOTE | 2022-09-20 11:24 | EDS_ITS ---
HPI History of Present Illness Chief Complaint: GI Bleed Informant: patient Narrative Narrative: Patient presents with multiple issues, she had an episode of rectal bleeding last night that occurred just after having a bowel movement while sitting on the toilet, dripping blood afterwards. She has had this multiple times in the past the last time was a couple weeks ago. She has chronic abdominal pain that really is no different, usually more in the left side similar to now. She had multiple CT scans in the past for this, and I have seen her before for the same thing. She states the last couple days, maybe the past 2 days, she has had headaches, myalgias, subjective fevers, bilateral earache without a cough or sore throat or neck pain/stiffness, and she has had urinary urgency and frequency. No dysuria. 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 and has been around a lot of children. [facility] Medical History Anxiety Asthma Depression Diarrhea Endometriosis Gastroparesis GERD (gastroesophageal reflux disease) Migraine OCD (obsessive compulsive disorder) Pelvic pain POTS (postural orthostatic tachycardia syndrome) PTSD (post-traumatic stress disorder) Schizophrenia Tachycardia Upper abdominal pain Home Medications albuterol sulfate 90 mcg/actuation aerosol inhaler 2 puff inhalation PRN PRN Wheezing 06/14/21 [History Last Taken Unknown] epinephrine 0.3 mg/0.3 mL injection, auto-injector 1 mg IM PRN PRN Allergic Regla ction 06/14/21 [History Last Taken Unknown] aripiprazole 2 mg tablet 5 mg PO QHS 07/31/21 [History Last Taken Unknown] fluoxetine 10 mg capsule 3 cap PO DAILY 10/06/21 [History Last Taken Unknown] omeprazole 40 mg capsule,delayed release 40 mg PO DAILY #30 caps 12/08/21 [Rx Last Taken Unknown] diclofenac sodium 75 mg tablet,delayed release 75 mg PO BID PRN pain 01/04/22 [History Last Taken Unknown] medroxyprogesterone 150 mg/mL intramuscular suspension (Depo-Provera) 150 mg IM Q6W 01/04/22 [History Last Taken Unknown] topiramate 100 mg tablet 125 mg PO QHS 01/04/22 [History Last Taken Unknown] prazosin 1 mg capsule 2 mg PO DAILY 03/19/22 [History Last Taken Unknown] trazodone 50 mg tablet 50 mg PO QHS 03/19/22 [History Last Taken Unknown] promethazine 25 mg tablet 25 mg PO TID PRN nausea and vomiting #10 tabs 03/25/22 [Rx Last Taken Unknown] prochlorperazine maleate 10 mg tablet 10 mg PO BID PRN Nausea 04/29/22 [History Last Taken Unknown] moxifloxacin 400 mg tablet mg 07/19/22 [History Last Taken Unknown] metoclopramide HCl 5 mg tablet 2.5 mg PO QAC #15 tabs 08/08/22 [Rx Last Taken Unknown] pantoprazole 40 mg tablet,delayed release 40 mg PO BID #60 tabs 08/13/22 [Rx Last Taken Unknown] prochlorperazine 25 mg rectal suppository 25 mg NM Q12H 30 days #1,000 ea 08/13/22 [Rx Last Taken Unknown] ondansetron 4 mg disintegrating tablet 4 mg PO Q8H PRN PRN Nausea #10 tabs 09/07/22 [Rx Last Taken Unknown] hydrocortisone acetate 25 mg rectal suppository 25 mg NM BID #24 ea 09/11/22 [Rx Last Taken Unknown] linaclotide 145 mcg capsule (Linzess) 145 mcg PO DAILY #30 caps 09/11/22 [Rx L ast Taken Unknown] hydrocortisone 1 %-pramoxine 1 % rectal foam (Proctofoam HC) 1 applic NM DAILY 1 week #10 grams 09/20/22 [Rx Last Taken Unknown] nitrofurantoin monohydrate/macrocrystals 100 mg capsule 100 mg PO Q12 #10 CAPSULES 09/20/22 [Rx Last Taken Unknown] Allergy/AdvReac Type Severity Reaction Status Date / Time gabapentin Allergy Rash Verified 09/20/22 09:27 sertraline [From Zoloft] Allergy Anaphylaxis Verified 09/20/22 09:27 silicone Allergy Rash Verified 09/20/22 09:27 lactose AdvReac Upset Verified 09/20/22 09:27 Stomach NASAL SPRAY Allergy Severe Hives Uncoded 09/20/22 09:27 Family History Father Anxiety Depression Asthma Hypertension Mother Asthma Diabetes Anxiety Depression CAD (coronary artery disease) Myocardial infarction, Onset Age: 42 Brother Oleksandr-Danlos syndrome Grandmother Myocardial infarction, Onset Age: 41 Grandfather Myocardial infarction, Onset Age: 38 Surgical History History of colonoscopy History of esophagogastroduodenoscopy (EGD) Hx of laparoscopy Social History household members: none Smoking Status: Current every day smoker tobacco type: e-cigarettes alcohol intake: current alcohol intake frequency: holidays/special occasions only substance use type: does not use caffeine: Yes Type: carbonated beverages, coffee and tea ROS ROS ED Constitutional Constitutional ED: Reports body ache(s), fever(s), malaise and subjective; Denies chills Eyes Eyes: Denies change in vision or diplopia ENT ENT ED: Denies rhinorrhea or sore throat Cardiovascular Cardiovascular: Denies chest pain or palpitations Respiratory/Chest Respiratory/Chest: Denies cough or dyspnea Gastrointestinal Gastrointestinal: Reports abdominal pain and hematochezia; Denies diarrhea, melena, nausea or vomiting Genitourinary Genitourinary ED: Reports urinary frequency and urinary urgency; Denies dysuria or hematuria Musculoskeletal Musculoskeletal: Reports myalgias; Denies back pain or neck pain Integumentary Denies abscess or rash Neurologic Neurologic: Denies headache(s), paresthesias or weakness Psychiatric Psychiatric: Denies anxiety or suicidal thoughts EXAM Physical Exam Const Vital Signs: 09/20/22 09:24 Temperature 97.4 F L Temperature Source Temporal Pulse Rate 92 Respiratory Rate 14 Blood Pressure 125/88 H Blood Pressure Mean 100 Pulse Ox 99 Oxygen Delivery Method Room Air Positive well nourished and well developed General Appearance ED: well developed and NAD HEENT Reports moist mucous membranes normocephalic and atraumatic Eyes PERRL and EOMs intact bilaterally Neck full ROM and supple Resp normal respiratory effort and clear to auscultation bilaterally Cardio regular rate, regular rhythm and no murmurs GI non-distended GI Narrative: Mild diffuse abdominal tenderness, no guarding or rebound, no distention. On rectal exam, she has mild diffuse perianal tenderness without any external hemorrhoids visible or palpable, no fissure, no fullness or abscess. Digital rectal exam is uncomfortable but not acutely painful and I can palpate nothing obvious, no mass. Auscultation: normoactive bowel sounds Palpation: soft Back/Spine no CVA tenderness General Back: other FROM Extremity normal to inspection General Extremety ED: Negative for edema, pulses abnormal or tenderness General Extremity: Negative for edema or pulses abnormal Neuro oriented x3, CN's II-XII intact bilaterally and no sensory deficits noted Sensorium / Orientation: awake and alert Motor Exam: strength 5/5 throughout Skin no rashes or lesions noted and no wounds MDM MDM MDM Narrative Medical decision making narrative: I did do a COVID and influenza they are negative, as well as urinalysis given her symptoms, which is consistent with infection. I am going to treat her with Macrobid, and I am going to treat her empirically with Proctofoam HC for possibility of nonprolapsed external hemorrhoids that I am not able to see or palpate, and/or internal hemorrhoids. She follows with Dr. Hdz for her chronic GI issues, and she is comfortable with following up. I do not think we need to repeat labs or advanced imaging today, I did review her prior ED visit. History & Record Review Additional record(s) reviewed:: Prior ED visit Lab Data Attestation: I reviewed the patient's lab results. Labs: Laboratory Results - last 24 hr 09/20/22 10:30 Urine Color Yellow Urine Clarity Sl. Cloudy Urine pH 8.0 Ur Specific [place] 1.015 Urine Protein Negative Urine Glucose (UA) Normal Urine Ketones Negative Urine Occult Blood Negative Urine Nitrite Negative Urine Bilirubin Negative Urine Urobilinogen Normal Ur Leukocyte Esterase 500 H Urine RBC 0 SEEN Urine WBC 25-50 SEEN Ur Squamous Epith Cells 0-5 SEEN Urine Bacteria 0 SEEN Urine Mucus 0 SEEN Discharge Plan Triage Chief Complaint: GI Bleed ED Provider: Gus Richard Dx/Rx/DC Orders Clinical Impression: Rectal bleeding, Acute lower UTI Instructions: ED Lower GI Bleeding (Stable), ED Cystitis Female Adult Prescriptions: New nitrofurantoin monohyd/m-cryst [nitrofurantoin monohyd/m-cryst] 100 mg capsule 100 mg PO Q12 Qty: 10 0RF Proctofoam HC 1-1 % foam 1 applic NM DAILY 7 Days Qty: 10 0RF No Action diclofenac sodium 75 mg tablet,delayed release (DR/EC) 75 mg PO BID PRN (Reason: pain) topiramate 100 mg tablet 125 mg PO QHS medroxyprogesterone [Depo-Provera] 150 mg/mL suspension 150 mg IM Q6W Label Comments: INJECT 1ML INTRAMUSCULARILY EVERY 12 WEEKS metoclopramide HCl 5 mg tablet 2.5 mg PO QAC Qty: 15 2RF Rx Instructions: administer 30 minutes before meals prochlorperazine 25 mg suppository 25 mg NM Q12H 30 Days Qty: 1000 1RF pantoprazole 40 mg tablet,delayed release (DR/EC) 40 mg PO BID Qty: 60 3RF epinephrine 0.3 mg/0.3 mL auto-injector 1 mg IM PRN PRN (Reason: Allergic Reaction) Label Comments: INJECT INTO THE MUSCLE NEEDED FOR ANAPHYLAXIS REACTION albuterol sulfate 90 mcg/actuation HFA aerosol inhaler 2 puff INHALATION PRN PRN (Reason: Wheezing) Label Comments: inhale 2 puffs by mouth and INTO THE LUNGS every 4 hours if neede... (REFER TO PRESCRIPTION NOTES). aripiprazole 2 mg tablet 5 mg PO QHS fluoxetine 10 mg capsule 3 cap PO DAILY omeprazole 40 mg capsule,delayed release(DR/EC) 40 mg PO DAILY Qty: 30 0RF trazodone 50 mg tablet 50 mg PO QHS Label Comments: TAKE 1 OR 2 TABLETS BY MOUTH AT BEDTIME prazosin 1 mg capsule 2 mg PO DAILY Label Comments: take 1 capsule by mouth twice a day promethazine 25 mg tablet 25 mg PO TID PRN (Reason: nausea and vomiting) Qty: 10 0RF prochlorperazine maleate 10 mg tablet 10 mg PO BID PRN (Reason: Nausea) Label Comments: take 1 tablet by mouth every 8 hours if needed for NAUSEA/VOMITTING moxifloxacin 400 mg tablet ondansetron 4 mg tablet,disintegrating 4 mg PO Q8H PRN PRN (Reason: Nausea) Qty: 10 0RF hydrocortisone acetate 25 mg suppository 25 mg NM BID Qty: 24 2RF Linzess 145 mcg capsule 145 mcg PO DAILY Qty: 30 0RF Primary Care Provider: Monica Patterson Referrals: Friend,DO Damir [Med Staff - Active Staff] - Monica Patterson, [employer]HE[employer] [facility] [Primary Care Provider] - 3-5 Days if not improving Disposition Disposition: Home, Self Care
[2022-09-20] MEDS: Nitrofurantoin Macrocrystals 100 MG Capsule PO (11:36)
== END 2022-09-20 11:50 | disposition home or self-care (01) ==
PROVIDERS: Emergency Provider Emergency Medicine; PCP Nurse Practitioner Family; Visit Provider Emergency Medicine
DX: K62.5 Hemorrhage of anus and rectum (principal); F20.9 Schizophrenia, unspecified; N39.0 Urinary tract infection, site not specified; J45.909 Unspecified asthma, uncomplicated; Z79.899 Other long term (current) drug therapy; F32.A Depression, unspecified; K21.9 Gastro-esophageal reflux disease without esophagitis; Z79.3 Long term (current) use of hormonal contraceptives; G43.909 Migraine, unspecified, not intractable, without status migrainosus; F42.9 Obsessive-compulsive disorder, unspecified; F17.290 Nicotine dependence, other tobacco product, uncomplicated
CPT/HCPCS: 81001; 87428; 99283; A4216

== ENCOUNTER 2022-09-26 12:51 | Emergency (ER) | payer MEDICAID, SELFPAY ==
[2022-09-26 12:52] VITALS: BP 142/86; PULSE 73; RESP 18; TEMP 36.6; O2SAT 100; BMI 27.3
--- NOTE | 2022-09-26 13:38 | ED.VIS.FALL ---
HPI HPI - Fall History of Present Illness Chief Complaint: Fall Narrative Narrative: 2 days ago patient fell onto her back in the sand volleyball pit while she was playing volleyball. No loss of consciousness she does not think she hit her head significantly, but since then she has gradually been feeling worse with regards to pain throughout her entire back just in the spine as well as headaches, and feeling often like things are fuzzy at times. She denies any vision changes, but today she started feeling tingly throughout her entire body, not just extremities. No bowel or bladder dysfunction, no weakness or inability to walk but everything hurts to move in her back and neck. [facility] Medical History Anxiety Asthma Depression Diarrhea Endometriosis Gastroparesis GERD (gastroesophageal reflux disease) Migraine OCD (obsessive compulsive disorder) Pelvic pain POTS (postural orthostatic tachycardia syndrome) PTSD (post-traumatic stress disorder) Schizophrenia Tachycardia Upper abdominal pain Home Medications albuterol sulfate 90 mcg/actuation aerosol inhaler 2 puff inhalation PRN PRN Wheezing 06/14/21 [History Last Taken Unknown] epinephrine 0.3 mg/0.3 mL injection, auto-injector 1 mg IM PRN PRN Allergic Reaction 06/14/21 [History Last Taken Unknown] aripiprazole 2 mg tablet 5 mg PO QHS 07/31/21 [History Last Taken Unknown] fluoxetine 10 mg capsule 3 cap PO DAILY 10/06/21 [History Last Taken Unknown] omeprazole 40 mg capsule,delayed release 40 mg PO DAILY #30 caps 12/08/21 [Rx Last Taken Unknown] diclofenac sodium 75 mg tablet,delayed release 75 mg PO BID PRN pain 01/04/22 [History Last Taken Unknown] medroxyprogesterone 150 mg/mL intramuscular suspension (Depo-Provera) 150 mg IM Q6W 01/04/22 [History Last Taken Unknown] topiramate 100 mg tablet 125 mg PO QHS 01/04/22 [History Last Taken Unknown] prazosin 1 mg capsule 2 mg PO DAILY 03/19/22 [History Last Taken Unknown] trazodone 50 mg tablet 50 mg PO QHS 03/19/22 [History Last Taken Unknown] promethazine 25 mg tablet 25 mg PO TID PRN nausea and vomiting #10 tabs 03/25/22 [Rx Last Taken Unknown] prochlorperazine maleate 10 mg tablet 10 mg PO BID PRN Nausea 04/29/22 [History Last Taken Unknown] moxifloxacin 400 mg tablet mg 07/19/22 [History Last Taken Unknown] metoclopramide HCl 5 mg tablet 2.5 mg PO QAC #15 tabs 08/08/22 [Rx Last Taken Unknown] pantoprazole 40 mg tablet,delayed release 40 mg PO BID #60 tabs 08/13/22 [Rx Last Taken Unknown] prochlorperazine 25 mg rectal suppository 25 mg WI Q12H 30 days #1,000 ea 08/13/22 [Rx Last Taken Unknown] ondansetron 4 mg disintegrating tablet 4 mg PO Q8H PRN PRN Nausea #10 tabs 09/07/22 [Rx Last Taken Unknown] hydrocortisone acetate 25 mg rectal suppository 25 mg WI BID #24 ea 09/11/22 [Rx Last Taken Unknown] linaclotide 145 mcg capsule (Linzess) 145 mcg PO DAILY #30 caps 09/11/22 [Rx Last Taken Unknown] hydrocortisone 1 %-pramoxine 1 % rectal foam (Proctofoam HC) 1 applic WI DAILY 1 week #10 grams 09/20/22 [Rx Last Taken Unknown] nitrofurantoin monohydrate/macrocrystals 100 mg capsule 100 mg PO Q12 #10 CAPSULES 09/20/22 [Rx Last Taken Unknown] Allergy/AdvReac Type Severity Reaction Status Date / Time gabapentin Allergy Rash Verified 09/26/22 12:54 sertraline [From Zoloft] Allergy Anaphylaxis Verified 09/26/22 12:54 silicone Allergy Rash Verified 09/26/22 12:54 lactose AdvReac Upset Verified 09/26/22 12:54 Stomach NASAL SPRAY Allergy Severe Hives Uncoded 09/26/22 12:54 Family History Father Anxiety Depression Asthma Hypertension Mother Asthma Diabetes Anxiety Depression CAD (coronary artery disease) Myocardial infarction, Onset Age: 42 Brother Oleksandr-Danlos syndrome Grandmother Myocardial infarction, Onset Age: 41 Grandfather Myocardial infarction, Onset Age: 38 Surgical History History of colonoscopy History of esophagogastroduodenoscopy (EGD) Hx of laparoscopy Social History household members: none Smoking Status: Current every day smoker tobacco type: e-cigarettes alcohol intake: current alcohol intake frequency: holidays/special occasions only substance use type: does not use caffeine: Yes Type: carbonated beverages, coffee and tea ROS ROS ED Constitutional Constitutional ED: Denies chills or fever(s) Eyes Eyes: Denies change in vision or diplopia ENT ENT ED: Denies ear pain, epistaxis, facial pain or rhinorrhea Cardiovascular Cardiovascular: Denies chest pain or palpitations Respiratory/Chest Respiratory/Chest: Denies cough or dyspnea Gastrointestinal Gastrointestinal: Denies abdominal pain, diarrhea, melena, nausea or vomiting Genitourinary Genitourinary ED: Denies dysuria or hematuria Musculoskeletal Musculoskeletal: Reports back pain and neck pain; Denies extremity pain Integumentary Denies abscess, Abrasions, laceration or rash Neurologic Neurologic: Reports headache(s) and paresthesias; Denies confusion or weakness EXAM Physical Exam Const Vital Signs: 09/26/22 12:52 09/26/22 13:05 Temperature 98 F Temperature Source Temporal Pulse Rate 73 Respiratory Rate 18 Respiratory Effort Normal Blood Pressure 142/86 H Blood Pressure Mean 104 Pulse Ox 100 Oxygen Delivery Method Room Air Positive well nourished and well developed General Appearance ED: well developed and NAD HEENT Reports nasal mucous membranes and turbinates normal atraumatic Face and Sinus: Negative for facial tenderness Eyes PERRL and EOMs intact bilaterally Visual Acuity: other Other Details: no entrapment or pain with extraocular movements Neck full ROM and supple General: Negative for tenderness Chest Wall inspection of chest normal and palpation of chest normal Chest: symmetrical chest wall rise; Negative for crepitus or tenderness Resp normal respiratory effort and clear to auscultation bilaterally Percussion: other equal BS bilat Cardio no murmurs Rate: regular rate Rhythm: regular rhythm GI normal to inspection, nondistended, normoactive bowel sounds, soft to palpation and non-tender Back/Spine normal ROM Back/Spine Narrative: Diffuse subjective midline spinal tenderness without any objective signs of trauma, no limitations in range of motion, no step-off or other palpable abnormality. Nontender at the coccyx. Cervical Spine: cervical spine tenderness Thoracic Spine / Upper Back: thoracic spinal tenderness Lumbar Spine / Lower Back: lumbar spinal tenderness Extremity normal to inspection and full ROM General Extremety ED: Negative for tenderness Neuro oriented x3, CN's II-XII intact bilaterally, moves all extremities, no focal motor deficits and no sensory deficits noted Fleming Coma Scale: document GCS findings Spontaneous Obeys Commands Oriented 15 Sensorium / Orientation: awake and alert Psych thought process normal Mood & Affect: anxious Skin no wounds Lesions: no lesions Rashes: no rashes MDM MDM MDM Narrative Medical decision making narrative: CT of the head was performed, was at a low suspicion of intracranial injury, but with her symptoms of concussion which may be due to actually hitting her head or neck strain, this was performed. I reviewed the images and the report which I agree with, negative for anything acute. X-ray 3 views of the C-spine, 2 views of the thoracic spine, and 3 views of the lumbosacral spine were all obtained and are negative on my interpretation, radiology in agreement. Patient reassured, given ibuprofen for pain, and instructions with regards to supportive care for this. Radiography Diagnostic Testing: Clinical Impression(s) from Imaging Studies Brain CT 09/26/22 14:00 IMPRESSION: Normal unenhanced CT scan of the brain. Electronically Signed: Eugenio Weathers MD at 14:13 EDT , Cervical Spine X-Ray 09/26/22 14:00 IMPRESSION: Normal x-ray examination of the visualized cervical spine. Electronically Signed: Eugenio Weathers MD at 14:20 EDT , Lumbar Spine X-Ray 09/26/22 14:00 IMPRESSION: Normal x-ray examination of the lumbar spine. Electronically Signed: Eugenio Weathers MD at 14:20 EDT , Thoracic Spine X-Ray 09/26/22 14:00 IMPRESSION: Normal x-ray examination of the thoracic spine. Electronically Signed: Eugenio Weathers MD at 14:21 EDT , Discharge Plan Triage Chief Complaint: Fall ED Provider: Gus Richard Dx/Rx/DC Orders Clinical Impression: Fall, accidental, Back contusion, Acute cervical myofascial strain Instructions: ED Back Contusion, ED Neck Sprain or Strain Prescriptions: No Action diclofenac sodium 75 mg tablet,delayed release (DR/EC) 75 mg PO BID PRN (Reason: pain) topiramate 100 mg tablet 125 mg PO QHS medroxyprogesterone [Depo-Provera] 150 mg/mL suspension 150 mg IM Q6W Label Comments: INJECT 1ML INTRAMUSCULARILY EVERY 12 WEEKS metoclopramide HCl 5 mg tablet 2.5 mg PO QAC Qty: 15 2RF Rx Instructions: administer 30 minutes before meals prochlorperazine 25 mg suppository 25 mg WI Q12H 30 Days Qty: 1000 1RF pantoprazole 40 mg tablet,delayed release (DR/EC) 40 mg PO BID Qty: 60 3RF epinephrine 0.3 mg/0.3 mL auto-injector 1 mg IM PRN PRN (Reason: Allergic Reaction) Label Comments: INJECT INTO THE MUSCLE NEEDED FOR ANAPHYLAXIS REACTION albuterol sulfate 90 mcg/actuation HFA aerosol inhaler 2 puff INHALATION PRN PRN (Reason: Wheezing) Label Comments: inhale 2 puffs by mouth and INTO THE LUNGS every 4 hours if neede... (REFER TO PRESCRIPTION NOTES). aripiprazole 2 mg tablet 5 mg PO QHS fluoxetine 10 mg capsule 3 cap PO DAILY omeprazole 40 mg capsule,delayed release(DR/EC) 40 mg PO DAILY Qty: 30 0RF trazodone 50 mg tablet 50 mg PO QHS Label Comments: TAKE 1 OR 2 TABLETS BY MOUTH AT BEDTIME prazosin 1 mg capsule 2 mg PO DAILY Label Comments: take 1 capsule by mouth twice a day promethazine 25 mg tablet 25 mg PO TID PRN (Reason: nausea and vomiting) Qty: 10 0RF prochlorperazine maleate 10 mg tablet 10 mg PO BID PRN (Reason: Nausea) Label Comments: take 1 tablet by mouth every 8 hours if needed for NAUSEA/VOMITTING moxifloxacin 400 mg tablet ondansetron 4 mg tablet,disintegrating 4 mg PO Q8H PRN PRN (Reason: Nausea) Qty: 10 0RF nitrofurantoin monohyd/m-cryst [nitrofurantoin monohyd/m-cryst] 100 mg capsule 100 mg PO Q12 Qty: 10 0RF Proctofoam HC 1-1 % foam 1 applic [place] DAILY 7 Days Qty: 10 0RF hydrocortisone acetate 25 mg suppository 25 mg [place] BID Qty: 24 2RF Linzess 145 mcg capsule 145 mcg PO DAILY Qty: 30 0RF Primary Care Provider: Monica Patterson Referrals: Monica Patterson, [employer] [Primary Care Provider] - 1 Week if not improving Disposition Disposition: Home, Self Care
--- NOTE | 2022-09-26 14:00 | RAD_ITS ---
STUDY: X-RAY - CERVICAL SPINE REASON FOR EXAM: Female, 22 years old. Pain/injury TECHNIQUE: 2 view(s) of the cervical spine were obtained. COMPARISON: None FINDINGS: Normal anterior atlantoaxial articulation. Normal odontoid process. Normal cervical lordosis. Normal vertebral bodies and endplates. Normal disc space heights. Normal visualized intervertebral neuroforamina. The soft tissue structures are unremarkable. RAD/Cerv Spine 2 or 3 Views IMPRESSION: Normal x-ray examination of the visualized cervical spine. Electronically Signed: Eugenio Weathres MD at 14:20 EDT ,
--- NOTE | 2022-09-26 14:00 | CT_ITS ---
STUDY: CT BRAIN WITHOUT CONTRAST REASON FOR EXAM: Female, 22 years old. Fall, headache RADIATION DOSAGE (If Supplied By Facility): CTDIvol = ( 47.06 ) mGy, DLP = ( 855.03 ) mGycm TECHNIQUE: Transaxial CT imaging of the brain was performed without administration of intravenous contrast material. Individualized dose optimization techniques were used for this CT. COMPARISON: No relevant priors. FINDINGS: Normal soft tissue structures. Normal calvarium. Normal size ventricles and extra-axial spaces for the patient''s age. Normal white matter tracts of the cerebral hemispheres. Normal basal ganglia and thalami. Normal brainstem. Normal cerebellum. There is no intracranial hemorrhage. There are no findings of an acute ischemic infarction. Normal visualized paranasal sinuses. CT/Brain/Head without Contrast IMPRESSION: Normal unenhanced CT scan of the brain. Electronically Signed: Eugenio Weathers MD at 14:13 EDT ,
--- NOTE | 2022-09-26 14:00 | RAD_ITS ---
STUDY: X-RAY - THORACIC SPINE REASON FOR EXAM: Female, 22 years old. Pain/injury TECHNIQUE: 2 view(s) of the thoracic spine were obtained. COMPARISON: None. FINDINGS: Normal kyphosis of the thoracic spine. There is no substantial scoliosis. Normal thoracic vertebrae and endplates. Normal disc space heights. The soft tissue structures are unremarkable. RAD/Thoracic Spine 2 Views IMPRESSION: Normal x-ray examination of the thoracic spine. Electronically Signed: Eugenio Weathers MD at 14:21 EDT ,
--- NOTE | 2022-09-26 14:00 | RAD_ITS ---
STUDY: X-RAY - LUMBAR SPINE REASON FOR EXAM: Female, 22 years old. Pain/injury TECHNIQUE: 2 view(s) of the lumbar spine were obtained. COMPARISON: None FINDINGS: Normal lumbar lordosis. There is no substantial scoliosis. There is a normal alignment of the vertebrae. Normal vertebral bodies and endplates. Normal disc space heights. The soft tissue structures are unremarkable. RAD/Lumbar Spine 2 or 3 Views IMPRESSION: Normal x-ray examination of the lumbar spine. Electronically Signed: Eugenio Weathers MD at 14:20 EDT ,
[2022-09-26] MEDS: Ibuprofen 200 MG Tablet 400 MG PO (14:53)
== END 2022-09-26 14:54 | disposition home or self-care (01) ==
PROVIDERS: Emergency Provider Emergency Medicine; PCP Nurse Practitioner Family; Visit Provider Emergency Medicine
DX: S16.1XXA Strain of muscle, fascia and tendon at neck level, initial encounter (principal); F20.9 Schizophrenia, unspecified; S20.229A Contusion of unspecified back wall of thorax, initial encounter; W18.39XA Other fall on same level, initial encounter; Y93.68 Activity, volleyball (beach) (court); Y92.89 Other specified places as the place of occurrence of the external cause; J45.909 Unspecified asthma, uncomplicated; Z79.899 Other long term (current) drug therapy; F32.A Depression, unspecified; F42.9 Obsessive-compulsive disorder, unspecified; K21.9 Gastro-esophageal reflux disease without esophagitis; Z79.3 Long term (current) use of hormonal contraceptives; G43.909 Migraine, unspecified, not intractable, without status migrainosus; F17.290 Nicotine dependence, other tobacco product, uncomplicated
CPT/HCPCS: 70450; 72040; 72070; 72100; 99283

== ENCOUNTER 2022-10-10 17:27 | Emergency (ER) | payer MEDICAID, SELFPAY ==
[2022-10-10 17:27] VITALS: BP 118/78; PULSE 78; RESP 16; TEMP 36.6; O2SAT 98; BMI 26.4
--- NOTE | 2022-10-10 18:00 | EKG12_ITS ---
Test Reason : SOB/CP Blood Pressure : / mmHG Vent. Rate : 086 BPM Atrial Rate : 086 BPM P-R Int : 140 ms QRS Dur : 076 ms QT Int : 364 ms P-R-T Axes : 051 032 008 degrees QTc Int : 435 ms Sinus rhythm with marked sinus arrhythmia Otherwise normal ECG Confirmed by SALLY COOL, HUBER ([id number]), dictionary editor BRITTA SHI ([id number]) on 10/11/2022 10:42:35 AM Referred By: Confirmed By:HUBER ZAVALA MD
--- NOTE | 2022-10-10 18:01 | EDS_ITS ---
HPI History of Present Illness Chief Complaint: General Illness Informant: patient Narrative Narrative: Patient presents with complaints of feeling weak and fatigued today. She complains of tingling over her entire face with left-sided chest pain that started last night. She reports some nausea. She states that she was on an antibiotic earlier this month but does not feel she ever got better. She continues to have urinary symptoms as well as now having back pain. She denies having a fever. [facility] Medical History Anxiety Asthma Depression Diarrhea Endometriosis Gastroparesis GERD (gastroesophageal reflux disease) Migraine OCD (obsessive compulsive disorder) Pelvic pain POTS (postural orthostatic tachycardia syndrome) PTSD (post-traumatic stress disorder) Schizophrenia Tachycardia Upper abdominal pain Home Medications albuterol sulfate 90 mcg/actuation aerosol inhaler 2 puff inhalation PRN PRN Wheezing 06/14/21 [History Last Taken Unknown] epinephrine 0.3 mg/0.3 mL injection, auto-injector 1 mg IM PRN PRN Allergic Reaction 06/14/21 [History Last Taken Unknown] aripiprazole 2 mg tablet 5 mg PO QHS 07/31/21 [History Last Taken Unknown] fluoxetine 10 mg capsule 3 cap PO DAILY 10/06/21 [History Last Taken Unknown] omeprazole 40 mg capsule,delayed release 40 mg PO DAILY #30 caps 12/08/21 [Rx Last Taken Unknown] diclofenac sodium 75 mg tablet,delayed release 75 mg PO BID PRN pain 01/04/22 [History Last Taken Unknown] medroxyprogesterone 150 mg/mL intramuscular suspension (Depo-Provera) 150 mg IM Q6W 01/04/22 [History Last Taken Unknown] topiramate 100 mg tablet 125 mg PO QHS 01/04/22 [History Last Taken Unknown] prazosin 1 mg capsule 2 mg PO DAILY 03/19/22 [History Last Taken Unknown] trazodone 50 mg tablet 50 mg PO QHS 03/19/22 [History Last Taken Unknown] promethazine 25 mg tablet 25 mg PO TID PRN nausea and vomiting #10 tabs 03/25/22 [Rx Last Taken Unknown] prochlorperazine maleate 10 mg tablet 10 mg PO BID PRN Nausea 04/29/22 [History Last Taken Unknown] moxifloxacin 400 mg tablet mg 07/19/22 [History Last Taken Unknown] metoclopramide HCl 5 mg tablet 2.5 mg (1/2 x 5 mg) PO QAC #15 tabs 08/08/22 [Rx Last Taken Unknown] pantoprazole 40 mg tablet,delayed release 40 mg PO BID #60 tabs 08/13/22 [Rx Last Taken Unknown] prochlorperazine 25 mg rectal suppository 25 mg AR Q12H 30 days #1,000 ea 08/13/22 [Rx Last Taken Unknown] ondansetron 4 mg disintegrating tablet 4 mg PO Q8H PRN PRN Nausea #10 tabs 09/07/22 [Rx Last Taken Unknown] hydrocortisone acetate 25 mg rectal suppository 25 mg AR BID #24 ea 09/11/22 [Rx Last Taken Unknown] hydrocortisone 1 %-pramoxine 1 % rectal foam (Proctofoam HC) 1 applic AR DAILY 1 week #10 grams 09/20/22 [Rx Last Taken Unknown] nitrofurantoin monohydrate/macrocrystals 100 mg capsule 100 mg PO Q12 #10 CAPSULES 09/20/22 [Rx Last Taken Unknown] linaclotide 145 mcg capsule (Linzess) 145 mcg PO DAILY #30 caps 10/02/22 [Rx Last Taken Unknown] potassium chloride 20 mEq tablet,extended release 20 meq PO BID #8 tabs 10/10/22 [Rx Last Taken Unknown] Allergy/AdvReac Type Severity Reaction Status Date / Time gabapentin Allergy Rash Verified 09/26/22 12:54 sertraline [From Zoloft] Allergy Anaphylaxis Verified 09/26/22 12:54 silicone Allergy Rash Verified 09/26/22 12:54 lactose AdvReac Upset Verified 09/26/22 12:54 Stomach NASAL SPRAY Allergy Severe Hives Uncoded 09/26/22 12:54 Family History Father Anxiety Depression Asthma Hypertension Mother Asthma Diabetes Anxiety Depression CAD (coronary artery disease) Myocardial infarction, Onset Age: 42 Brother Oleksandr-Danlos syndrome Grandmother Myocardial infarction, Onset Age: 41 Grandfather Myocardial infarction, Onset Age: 38 Surgical History History of colonoscopy History of esophagogastroduodenoscopy (EGD) Hx of laparoscopy Social History household members: none Smoking Status: Current every day smoker tobacco type: e-cigarettes alcohol intake: current alcohol intake frequency: holidays/special occasions only substance use type: does not use caffeine: Yes Type: carbonated beverages, coffee and tea ROS ROS ED Constitutional Constitutional ED: Denies chills or fever(s) Eyes Eyes: Denies change in vision or discharge from eye(s) ENT ENT ED: Denies discharge from eye(s), rhinorrhea or sore throat Cardiovascular Cardiovascular: Reports chest pain Respiratory/Chest Respiratory/Chest: Reports dyspnea; Denies cough Gastrointestinal Gastrointestinal: Reports abdominal pain and nausea; Denies diarrhea Genitourinary Genitourinary ED: Reports dysuria Musculoskeletal Musculoskeletal: Denies back pain or extremity pain Integumentary Denies Abrasions or rash Neurologic Neurologic: Reports headache(s), paresthesias and weakness Psychiatric Psychiatric: Denies anxiety or depression Allergic/Immunologic Allergic/Immunologic ED: Denies lip swelling or urticaria EXAM Physical Exam Const Vital Signs: 10/10/22 17:27 10/10/22 17:52 Temperature 97.8 F Temperature Source Temporal Pulse Rate 78 Respiratory Rate 16 Respiratory Effort Normal Non-Labored Respiratory Pattern Normal Blood Pressure 118/78 Blood Pressure Mean 91 Pulse Ox 98 Oxygen Delivery Method Room Air Positive well nourished and well developed General Appearance ED: well developed HEENT Reports normocephalic and head/scalp atraumatic Eyes PERRL and EOMs intact bilaterally Neck supple Chest Wall inspection of chest normal and palpation of chest normal Resp normal respiratory effort and clear to auscultation bilaterally Cardio regular rate and regular rhythm GI non-tender Palpation: soft Extremity normal to inspection Neuro oriented x3 and no sensory deficits noted Sensorium / Orientation: alert Motor Exam: strength 5/5 throughout Psych mental status grossly normal Skin no rashes or lesions noted MDM MDM MDM Narrative Medical decision making narrative: Patient placed on quality assurance monitor final. EKG obtained to evaluate for cardiac arrhythmia/ischemia. Chest x-ray obtained to evaluate for acute lung pathology, cardiac size, or mediastinal abnormality. Labwork obtained to evaluate for leukocytosis, anemia, and electrolyte derangement. Urinalysis obtained to evaluate for infection/hematuria. Patient given IV fluids along with Toradol. She was also given Zofran for nausea. Lab Data Attestation: I reviewed the patient's lab results. Labs: Laboratory Results - last 24 hr 10/10/22 18:25 WBC 9.7 RBC 5.39 Hgb 14.2 Hct 41.7 MCV 77.4 L MCH 26.3 L MCHC 34.1 RDW Std Deviation 41.1 RDW Coeff of Anoop 14.7 H Plt Count 479 H MPV 8.6 Immature Gran % (Auto) 0.300 Neut % (Auto) 71.5 H Lymph % (Auto) 19.3 [place] % (Auto) 8.4 Eos % (Auto) 0.2 Baso % (Auto) 0.3 Absolute Neuts (auto) 6.9 Absolute Lymphs (auto) 1.88 Nucleated RBC % 0 D-Dimer Quant (PE/DVT) < 0.27 L Sodium 137 Potassium 3.3 L Chloride 109 H Carbon Dioxide 22.0 Anion Gap 6 BUN 11 Creatinine 0.92 Estim Creat Clear Calc 83.53 Est GFR (MDRD) Af Amer 98 Est GFR (MDRD) Non-Af 81 BUN/Creatinine Ratio 11.9 Glucose 102 Calcium 9.3 Troponin I High Sens 7 Serum , Qual NEGATIVE Urine Color Yellow Urine Clarity Clear Urine pH 7.0 Ur Specific [place] 1.010 Urine Protein Negative Urine Glucose (UA) Normal Urine Ketones Negative Urine Occult Blood Negative Urine Nitrite Negative Urine Bilirubin Negative Urine Urobilinogen Normal Ur Leukocyte Esterase 25 H Urine RBC 0 SEEN Urine WBC 0-5 SEEN Ur Squamous Epith Cells 0 SEEN Urine Bacteria 0 SEEN Urine Mucus 0 SEEN Radiography Chest X-Ray - ED: 1 View, Read by ED Physician, Normal, Heart, Lungs and Medi astinum Diagnostic Testing: Clinical Impression(s) from Imaging Studies Chest X-Ray 10/10/22 19:25 IMPRESSION: No radiographic evidence of acute cardiopulmonary disease. Electronically Signed: Meet Velasco, at 19:39 EDT Reading Location ID and State: [facility] / [place] Tel , Service support , EKG Initial EKG: Attestation: I personally reviewed and interpreted this EKG as follows: Interpretation: Sinus Rhythm (Sinus 86 with no acute ischemia.) Differential Diagnosis Chest pain/SOB: pulmonary embolism Reason(s) PE less likely: Positive for D- Dimer negative and ACS ACS: Positive for no evidence of ACS based on cardiac biomarkers and EKG without ischemia Abdominal Pain: UTI Reason(s) UTI less likely: no evidence of infection on urinalysis Treatment and Re-Evaluation :: CBC reveals normal white count and hemoglobin. No left shift. D-dimer is less than 0.27. Chemistry studies significant only for potassium of 3.3. Troponin is normal at 7. test negative. Urinalysis reveals no evidence of infection. EKG reveals no evidence of ischemia. Portable chest x-ray per my interpretation reveals no focal infiltrate or acute abnormality. Radiology interpretation is reviewed and agrees. Test results are discussed with the patient. We will treat her with potassium replacement. She is reassured with negative cardiac work-up and will continue to monitor her symptoms. Discharge Plan Triage Chief Complaint: General Illness ED Provider: Sridevi Varela Dx/Rx/DC Orders Clinical Impression: Paresthesias, Chest pain, Hypokalemia Instructions: ED Chest Pain, Uncertain Cause, ED Hypokalemia, ED Paraesthesias Prescriptions: New potassium chloride 20 mEq tablet extended release 20 meq PO BID Qty: 8 0RF No Action diclofenac sodium 75 mg tablet,delayed release (DR/EC) 75 mg PO BID PRN (Reason: pain) topiramate 100 mg tablet 125 mg PO QHS medroxyprogesterone [Depo-Provera] 150 mg/mL suspension 150 mg IM Q6W Patient Comments: INJECT 1ML INTRAMUSCULARILY EVERY 12 WEEKS metoclopramide HCl 5 mg tablet 2.5 mg PO QAC Qty: 15 2RF Rx Instructions: administer 30 minutes before meals prochlorperazine 25 mg suppository 25 mg AR Q12H 30 Days Qty: 1000 1RF pantoprazole 40 mg tablet,delayed release (DR/EC) 40 mg PO BID Qty: 60 3RF epinephrine 0.3 mg/0.3 mL auto-injector 1 mg IM PRN PRN (Reason: Allergic Reaction) Patient Comments: INJECT INTO THE MUSCLE NEEDED FOR ANAPHYLAXIS REACTION albuterol sulfate 90 mcg/actuation HFA aerosol inhaler 2 puff INHALATION PRN PRN (Reason: Wheezing) Patient Comments: inhale 2 puffs by mouth and INTO THE LUNGS every 4 hours if neede... (REFER TO PRESCRIPTION NOTES). aripiprazole 2 mg tablet 5 mg PO QHS fluoxetine 10 mg capsule 3 cap PO DAILY omeprazole 40 mg capsule,delayed release(DR/EC) 40 mg PO DAILY Qty: 30 0RF trazodone 50 mg tablet 50 mg PO QHS Patient Comments: TAKE 1 OR 2 TABLETS BY MOUTH AT BEDTIME prazosin 1 mg capsule 2 mg PO DAILY Patient Comments: take 1 capsule by mouth twice a day promethazine 25 mg tablet 25 mg PO TID PRN (Reason: nausea and vomiting) Qty: 10 0RF prochlorperazine maleate 10 mg tablet 10 mg PO BID PRN (Reason: Nausea) Patient Comments: take 1 tablet by mouth every 8 hours if needed for NAUSEA/VOMITTING moxifloxacin 400 mg tablet ondansetron 4 mg tablet,disintegrating 4 mg PO Q8H PRN PRN (Reason: Nausea) Qty: 10 0RF nitrofurantoin monohyd/m-cryst [nitrofurantoin monohyd/m-cryst] 100 mg capsule 100 mg PO Q12 Qty: 10 0RF Proctofoam HC 1-1 % foam 1 applic AR DAILY 7 Days Qty: 10 0RF hydrocortisone acetate 25 mg suppository 25 mg AR BID Qty: 24 2RF Linzess 145 mcg capsule 145 mcg PO DAILY Qty: 30 0RF Primary Care Provider: Monica Patterson Referrals: Monica Patterson, [facility] [Primary Care Provider] - 1 Week if not improving Disposition Disposition: Home, Self Care
[2022-10-10] MEDS: Ketorolac 30 MG/ML Syringe IV (18:20)
[2022-10-10] MEDS: 0.9% Normal Saline 1,000 ML 150 ML IV (18:20)
[2022-10-10 18:35] LABS: Bacteria 0 SEEN /hpf (None Seen); Mucous, Urine 0 SEEN /hpf (<or=2+); Red Blood Cells-Urine 0 SEEN /hpf (0-5); Squamous Epithelial Cells - UA 0 SEEN /hpf (5-10)
[2022-10-10 18:42] LABS: Color, Urine Yellow (Yellow); Glucose, Dipstick Normal (Normal); Ketone-Dipstick Negative (Negative); Leukocyte Esterase-Dipstick 25 /ul (Negative); Nitrite-Dipstick Negative (Negative); Occult Blood-Urine Negative /ul (Negative); Protein-Dipstick Negative (Negative); Urine Bilirubin Dipstick Negative (Negative); Urine Clarity Clear (Clear); Urine Urobilinogen Normal (Normal)
[2022-10-10 18:45] LABS: Absolute Lymphocyte Count 1.88 X10^3/uL (0.83-4.51); Absolute Neutrophil Count 6.9 X10^3/uL (2.0-7.7); Basophil# 0.03 X10^3/uL; Basophil% 0.3 % (0-1); Eosinophil# 0.02 X10^3/uL; Eosinophils% 0.2 % (0-5); Hematocrit 41.7 % (37-47); Hemoglobin 14.2 g/dL (12.0-15.0); Lymphocyte # 1.88 X10^3/ul (0.83-4.51); Lymphocyte % 19.3 % (19-41); Mean Corp Hgb Conc 34.1 g/dL (32-36); Mean Corpuscular Hgb 26.3 pg (27.0-32.0); Mean Corpuscular Volume 77.4 fL (81-99); Mean Platelet Vol. 8.6 fl (6.2-12.0); Monocyte# 0.82 X10^3/uL; Monocyte% 8.4 % (0-10); NRBC Flagged by Analyzer 0 % (0-5); Neutrophil # 6.94 X10^3/uL (2.7-7.7); Neutrophil % 71.5 % (47-70); Platelet Count 479 K/mm3 (150-450); RBC Distribution Width CV 14.7 % (11.6-14.6); RBC Distribution Width SD 41.1 fl (35.1-43.9); Red Blood Count 5.39 M/mm3 (4.2-5.4); White Blood Count 9.7 K/mm3 (4.4-11.0)
[2022-10-10 18:52] LABS: White Blood Cells 0-5 SEEN /hpf (0-5)
[2022-10-10] MEDS: Ondansetron 4 MG/2 ML Vial IV (18:52)
[2022-10-10 18:57] LABS: D-Dimer Quantitative (DVT/PE) < 0.27 FEU/ug/m (0.27-0.49)
[2022-10-10 19:01] LABS: Internal QC Validated? YES +Cl - CLEAR BKGD; Pregnancy, Serum, hCG Quali. NEGATIVE Negative
[2022-10-10 19:10] LABS: Anion Gap 6 (5-15); BUN 11 mg/dL (7-18); BUN/Creat Ratio 11.9 RATIO (10-20); Calcium,Total 9.3 mg/dL (8.5-10.1); Chloride 109 mmol/L (98-107); Creatinine, Serum 0.92 mg/dL (0.55-1.02); EST Glomerular Filtration Rate 81 mL/min (>60); Est Glom Filt Rate - Afr Amer 98 mL/min (>60); Estimated Creatinine Clearance 83.53 ml/min; Glucose 102 mg/dL (74-106); Potassium 3.3 mmol/L (3.5-5.1); Sodium Level 137 mmol/L (136-145); Troponin-I HS 7 pg/mL (3.0-54.0)
--- NOTE | 2022-10-10 19:25 | RAD_ITS ---
INDICATION: cp EXAMINATION/TECHNIQUE: X-RAY - XR Chest 1 View COMPARISON: FINDINGS: LINES/DEVICES: None. LUNGS: No consolidation, edema or effusion. No pneumothorax. MEDIASTINUM AND CARDIOVASCULAR STRUCTURES: Cardiac silhouette not enlarged. Central airways and mediastinal contour are unremarkable. BONES AND SOFT TISSUES: Unremarkable. RAD/Chest 1 View (Portable) IMPRESSION: No radiographic evidence of acute cardiopulmonary disease. Electronically Signed: Meet Velasco, at 19:39 EDT ,
[2022-10-10 20:27] VITALS: BP 125/79; PULSE 68; RESP 16; O2SAT 99
== END 2022-10-10 20:35 | disposition home or self-care (01) ==
PROVIDERS: Emergency Provider Emergency Medicine; PCP Nurse Practitioner Family; Visit Provider Emergency Medicine
DX: E87.6 Hypokalemia (principal); F20.9 Schizophrenia, unspecified; R07.9 Chest pain, unspecified; R11.0 Nausea; R20.2 Paresthesia of skin; J45.909 Unspecified asthma, uncomplicated; F32.A Depression, unspecified; F42.9 Obsessive-compulsive disorder, unspecified; Z79.899 Other long term (current) drug therapy; K21.9 Gastro-esophageal reflux disease without esophagitis; Z79.3 Long term (current) use of hormonal contraceptives; G43.909 Migraine, unspecified, not intractable, without status migrainosus; F17.290 Nicotine dependence, other tobacco product, uncomplicated
CPT/HCPCS: 71045; 80048; 81001; 84484; 84703; 85025; 85379; 87086; 87088; 93005; 96361; 96374; 96375; 99283; J7030; A4216; J2405

== ENCOUNTER 2022-10-19 03:46 | Emergency (ER) | payer MEDICAID, SELFPAY ==
[2022-10-19 03:47] VITALS: BP 133/75; PULSE 77; RESP 17; TEMP 36.3; O2SAT 99; BMI 27.9
--- NOTE | 2022-10-19 04:03 | EDS_ITS ---
HPI HPI - GI History of Present Illness Chief Complaint: Other, Pain/Inj Narrative Narrative: 22-year-old female presenting with pelvic cramping. It started a couple of days ago on the left side of her pelvis. She has a history of chronic pelvic pain, gastroparesis. She states he is on the Depo-Provera shot and had not had a period since May and since her period started the last couple of days she has had increasing pelvic pain. She was seen by urgent care and had a urinalysis which is negative and urine culture was sent. test was negative. Patient is not concerned for . Patient states that she is having nausea. She has not had fever, chills. She denies constipation or diarrhea. She not having urinary symptoms. She does have history of ovarian cysts in the past. 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 [facility] Medical History Anxiety Asthma Depression Diarrhea Endometriosis Gastroparesis GERD (gastroesophageal reflux disease) Migraine OCD (obsessive compulsive disorder) Pelvic pain POTS (postural orthostatic tachycardia syndrome) PTSD (post-traumatic stress disorder) Schizophrenia Tachycardia Upper abdominal pain Home Medications albuterol sulfate 90 mcg/actuation aerosol inhaler 2 puff inhalation PRN PRN Wheezing 06/14/21 [History Last Taken Unknown] epinephrine 0.3 mg/0.3 mL injection, auto-injector 1 mg IM PRN PRN Allergic Reaction 06/14/21 [History Last Taken Unknown] aripiprazole 2 mg tablet 5 mg PO QHS 07/31/21 [History Last Taken Unknown] fluoxetine 10 mg capsule 3 cap PO DAILY 10/06/21 [History Last Taken Unknown] omeprazole 40 mg capsule,delayed release 40 mg PO DAILY #30 caps 12/08/21 [Rx Last Taken Unknown] diclofenac sodium 75 mg tablet,delayed release 75 mg PO BID PRN pain 01/04/22 [History Last Taken Unknown] medroxyprogesterone 150 mg/mL intramuscular suspension (Depo-Provera) 150 mg IM Q6W 01/04/22 [History Last Taken Unknown] topiramate 100 mg tablet 125 mg PO QHS 01/04/22 [History Last Taken Unknown] prazosin 1 mg capsule 2 mg PO DAILY 03/19/22 [History Last Taken Unknown] trazodone 50 mg tablet 50 mg PO QHS 03/19/22 [History Last Taken Unknown] promethazine 25 mg tablet 25 mg PO TID PRN nausea and vomiting #10 tabs 03/25/22 [Rx Last Taken Unknown] prochlorperazine maleate 10 mg tablet 10 mg PO BID PRN Nausea 04/29/22 [History Last Taken Unknown] moxifloxacin 400 mg tablet mg 07/19/22 [History Last Taken Unknown] metoclopramide HCl 5 mg tablet 2.5 mg (1/2 x 5 mg) PO QAC #15 tabs 08/08/22 [Rx Last Taken Unknown] pantoprazole 40 mg tablet,delayed release 40 mg PO BID #60 tabs 08/13/22 [Rx Last Taken Unknown] prochlorperazine 25 mg rectal suppository 25 mg MN Q12H 30 days #1,000 ea 08/13/22 [Rx Last Taken Unknown] ondansetron 4 mg disintegrating tablet 4 mg PO Q8H PRN PRN Nausea #10 tabs 09/07/22 [Rx Last Taken Unknown] hydrocortisone acetate 25 mg rectal suppository 25 mg MN BID #24 ea 09/11/22 [Rx Last Taken Unknown] hydrocortisone 1 %-pramoxine 1 % rectal foam (Proctofoam HC) 1 applic MN DAILY 1 week #10 grams 09/20/22 [Rx Last Taken Unknown] nitrofurantoin monohydrate/macrocrystals 100 mg capsule 100 mg PO Q12 #10 CAPSULES 09/20/22 [Rx Last Taken Unknown] potassium chloride 20 mEq tablet,extended release 20 meq PO BID #8 tabs 10/10/22 [Rx Last Taken Unknown] lactulose 10 gram/15 mL (15 mL) oral solution 10 g (15 mL) PO DAILY #600 mL 10/17/22 [Rx Last Taken Unknown] Allergy/AdvReac Type Severity Reaction Status Date / Time gabapentin Allergy Rash Verified 10/19/22 03:52 sertraline [From Zoloft] Allergy Anaphylaxis Verified 10/19/22 03:52 silicone Allergy Rash Verified 10/19/22 03:52 lactose AdvReac Upset Verified 10/19/22 03:52 Stomach NASAL SPRAY Allergy Severe Hives Uncoded 09/26/22 12:54 Family History Father Anxiety Depression Asthma Hypertension Mother Asthma Diabetes Anxiety Depression CAD (coronary artery disease) Myocardial infarction, Onset Age: 42 Brother Oleksandr-Danlos syndrome Grandmother Myocardial infarction, Onset Age: 41 Grandfather Myocardial infarction, Onset Age: 38 Surgical History History of colonoscopy History of esophagogastroduodenoscopy (EGD) Hx of laparoscopy Social History household members: none Smoking Status: Current every day smoker tobacco type: e-cigarettes alcohol intake: current alcohol intake frequency: holidays/special occasions only substance use type: does not use caffeine: Yes Type: carbonated beverages, coffee and tea ROS ROS ED Constitutional Constitutional ED: Denies chills, fever(s) or sweats Eyes Eyes: Denies blurry vision or change in vision ENT ENT ED: Denies ear pain or sore throat Cardiovascular Cardiovascular: Denies chest pain, palpitations or racing heartbeat Respiratory/Chest Respiratory/Chest: Denies cough, dyspnea or sputum Gastrointestinal Gastrointestinal: Reports abdominal pain and nausea; Denies constipation, diarrhea or vomiting Genitourinary Genitourinary ED: Reports other Details: Vaginal bleeding ; Denies dysuria, hematuria or urinary frequency Musculoskeletal Musculoskeletal: Denies arthralgias, myalgias or neck pain Integumentary Denies abscess, Abrasions or rash Neurologic Neurologic: Denies headache(s), paresthesias or weakness Psychiatric Psychiatric: Denies anxiety, depression, suicidal ideation or suicidal thoughts Endocrine Endocrinology: Denies polydipsia or polyuria EXAM Physical Exam Const Vital Signs: 10/19/22 03:47 10/19/22 03:50 Temperature 97.3 F L Temperature Source Temporal Pulse Rate 77 Respiratory Rate 17 Respiratory Effort Short of Breath Respiratory Pattern Normal Blood Pressure 133/75 H Blood Pressure Mean 94 Pulse Ox 99 Oxygen Delivery Method Room Air Positive well nourished General Appearance ED: Negative for pallor HEENT Reports moist mucous membranes normocephalic Eyes PERRL and EOMs intact bilaterally Resp normal respiratory effort and clear to auscultation bilaterally Cardio regular rate and regular rhythm GI GI Narrative: Benign abdominal exam Palpation: Negative for guarding, rigid or rebound tenderness present Back/Spine no CVA tenderness Neuro CN's II-XII intact bilaterally Sensorium / Orientation: alert Psych mental status grossly normal Skin no wounds General Skin Exam: Negative for jaundice or pallor MDM MDM MDM Narrative Medical decision making narrative: Patient presenting with left-sided pelvic pain. She has nausea as well. Differential for this includes constipation, gastroparesis, menses, ovarian cyst , diverticulitis, UTI, pyelonephritis, kidney stone. Since patient just darted her menstrual cycle and is having cramping this is most likely her menses. She is given Toradol and Zofran. She given a liter of IV fluids. CBC to assess white blood cell count, hemoglobin, platelets, differential. BMP to assess renal function, electrolytes. Reviewed the record and her urinalysis from yesterday was negative. test was also negative. Basic lab work was obtained and is normal. Discussed with patient that I would not recommend CT imaging at this time as she has had many CT scans in the past. I recommended Tylenol, ibuprofen. Return precautions were discussed. Impression: 1. Abdominal pain Lab Data Labs: Laboratory Results - last 24 hr 10/19/22 03:55 WBC 10.6 RBC 5.04 Hgb 12.7 Hct 39.5 MCV 78.4 L MCH 25.2 L MCHC 32.2 RDW Std Deviation 40.4 RDW Coeff of Anoop 14.4 Plt Count 405 MPV 8.9 Immature Gran % (Auto) 0.400 Neut % (Auto) 66.4 Lymph % (Auto) 24.5 [place] % (Auto) 7.5 Eos % (Auto) 0.8 Baso % (Auto) 0.4 Absolute Neuts (auto) 7.0 Absolute Lymphs (auto) 2.59 Nucleated RBC % 0 Sodium 144 Potassium 3.7 Chloride 112 H Carbon Dioxide 25.0 Anion Gap 7 BUN 8 Creatinine 0.74 Estim Creat Clear Calc 103.85 Est GFR (MDRD) Af Amer 126 Est GFR (MDRD) Non-Af 104 BUN/Creatinine Ratio 10.8 Glucose 81 Calcium 8.9 Discharge Plan Triage Chief Complaint: Other, Pain/Inj ED Provider: Jaylen Delgado Dx/Rx/DC Orders Instructions: ED Abdominal Pain Unkn Cause Fem Prescriptions: No Action diclofenac sodium 75 mg tablet,delayed release (DR/EC) 75 mg PO BID PRN (Reason: pain) topiramate 100 mg tablet 125 mg PO QHS medroxyprogesterone [Depo-Provera] 150 mg/mL suspension 150 mg IM Q6W Patient Comments: INJECT 1ML INTRAMUSCULARILY EVERY 12 WEEKS metoclopramide HCl 5 mg tablet 2.5 mg PO QAC Qty: 15 2RF Rx Instructions: administer 30 minutes before meals prochlorperazine 25 mg suppository 25 mg [place] Q12H 30 Days Qty: 1000 1RF pantoprazole 40 mg tablet,delayed release (DR/EC) 40 mg PO BID Qty: 60 3RF epinephrine 0.3 mg/0.3 mL auto-injector 1 mg IM PRN PRN (Reason: Allergic Reaction) Patient Comments: INJECT INTO THE MUSCLE NEEDED FOR ANAPHYLAXIS REACTION albuterol sulfate 90 mcg/actuation HFA aerosol inhaler 2 puff INHALATION PRN PRN (Reason: Wheezing) Patient Comments: inhale 2 puffs by mouth and INTO THE LUNGS every 4 hours if neede... (REFER TO PRESCRIPTION NOTES). aripiprazole 2 mg tablet 5 mg PO QHS fluoxetine 10 mg capsule 3 cap PO DAILY omeprazole 40 mg capsule,delayed release(DR/EC) 40 mg PO DAILY Qty: 30 0RF trazodone 50 mg tablet 50 mg PO QHS Patient Comments: TAKE 1 OR 2 TABLETS BY MOUTH AT BEDTIME prazosin 1 mg capsule 2 mg PO DAILY Patient Comments: take 1 capsule by mouth twice a day promethazine 25 mg tablet 25 mg PO TID PRN (Reason: nausea and vomiting) Qty: 10 0RF prochlorperazine maleate 10 mg tablet 10 mg PO BID PRN (Reason: Nausea) Patient Comments: take 1 tablet by mouth every 8 hours if needed for NAUSEA/VOMITTING moxifloxacin 400 mg tablet ondansetron 4 mg tablet,disintegrating 4 mg PO Q8H PRN PRN (Reason: Nausea) Qty: 10 0RF nitrofurantoin monohyd/m-cryst [nitrofurantoin monohyd/m-cryst] 100 mg capsule 100 mg PO Q12 Qty: 10 0RF Proctofoam HC 1-1 % foam 1 applic [place] DAILY 7 Days Qty: 10 0RF potassium chloride 20 mEq tablet extended release 20 meq PO BID Qty: 8 0RF hydrocortisone acetate 25 mg suppository 25 mg [place] BID Qty: 24 2RF lactulose 10 gram/15 mL (15 mL) solution 10 g PO DAILY Qty: 600 0RF Primary Care Provider: Monica Patterson Referrals: Siri Castle MD [Med Staff - Active Staff] - As Needed Monica Patterson, [facility] [Primary Care Provider] - Disposition Disposition: Home, Self Care
[2022-10-19] MEDS: 0.9% Normal Saline 1,000 ML 1000 ML IV (04:09)
[2022-10-19] MEDS: Ketorolac 15 MG/ML Vial IV (04:10)
[2022-10-19] MEDS: Ondansetron 4 MG/2 ML Vial IV (04:10)
[2022-10-19 04:16] LABS: Absolute Lymphocyte Count 2.59 X10^3/uL (0.83-4.51); Basophil# 0.04 X10^3/uL; Basophil% 0.4 % (0-1); Eosinophil# 0.08 X10^3/uL; Eosinophils% 0.8 % (0-5); Hematocrit 39.5 % (37-47); Hemoglobin 12.7 g/dL (12.0-15.0); Lymphocyte # 2.59 X10^3/ul (0.83-4.51); Lymphocyte % 24.5 % (19-41); Mean Corp Hgb Conc 32.2 g/dL (32-36); Mean Corpuscular Hgb 25.2 pg (27.0-32.0); Mean Corpuscular Volume 78.4 fL (81-99); Mean Platelet Vol. 8.9 fl (6.2-12.0); Monocyte# 0.79 X10^3/uL; Monocyte% 7.5 % (0-10); NRBC Flagged by Analyzer 0 % (0-5); Neutrophil # 7.04 X10^3/uL (2.7-7.7); Neutrophil % 66.4 % (47-70); Platelet Count 405 K/mm3 (150-450); RBC Distribution Width CV 14.4 % (11.6-14.6); RBC Distribution Width SD 40.4 fl (35.1-43.9); Red Blood Count 5.04 M/mm3 (4.2-5.4); White Blood Count 10.6 K/mm3 (4.4-11.0)
[2022-10-19 04:31] LABS: Anion Gap 7 (5-15); BUN 8 mg/dL (7-18); BUN/Creat Ratio 10.8 RATIO (10-20); Calcium,Total 8.9 mg/dL (8.5-10.1); Chloride 112 mmol/L (98-107); Creatinine, Serum 0.74 mg/dL (0.55-1.02); EST Glomerular Filtration Rate 104 mL/min (>60); Est Glom Filt Rate - Afr Amer 126 mL/min (>60); Estimated Creatinine Clearance 103.85 ml/min; Glucose 81 mg/dL (74-106); Potassium 3.7 mmol/L (3.5-5.1); Sodium Level 144 mmol/L (136-145)
[2022-10-19 04:59] VITALS: BP 125/62; PULSE 82; RESP 16
== END 2022-10-19 05:01 | disposition home or self-care (01) ==
PROVIDERS: Emergency Provider Student in an Organized Health Care Education/Training Program; PCP Nurse Practitioner Family; Visit Provider Student in an Organized Health Care Education/Training Program
DX: R10.9 Unspecified abdominal pain (principal); F20.9 Schizophrenia, unspecified; F17.210 Nicotine dependence, cigarettes, uncomplicated; R11.0 Nausea; R10.2 Pelvic and perineal pain; K21.9 Gastro-esophageal reflux disease without esophagitis; J45.909 Unspecified asthma, uncomplicated; F32.9 Major depressive disorder, single episode, unspecified; F42.9 Obsessive-compulsive disorder, unspecified
CPT/HCPCS: 80048; 85025; 99284; J7030; A4216; J2405

== ENCOUNTER 2022-10-26 18:24 | Emergency (ER) | payer MEDICAID, SELFPAY ==
[2022-10-26 18:25] VITALS: BP 115/85; PULSE 105; RESP 16; TEMP 36.6; O2SAT 100; BMI 27.6
--- NOTE | 2022-10-26 19:07 | EX.ED.DYSGE1 ---
HPI History of Present Illness Chief Complaint: Shortness of Breath Informant: patient Narrative Narrative: Patient presents with strep throat and per urgent care was told to come here because she might need an x-ray. Patient states she has had a sore throat for about 3 or 4 days. Does not think she has had a fever. She gets an occasional cough but is not short of breath and is not having productive sputum. She also has some mild nasal congestion. She was seen over at urgent care earlier. They did do a rapid strep which was positive. She was started on amoxicillin. They stated that their x-ray machine is down so they cannot do a chest x-ray so they recommended she come here. There is no suggestion to do CT of the neck. Patient is able to swallow and eat. She does have a history of asthma but has not been wheezing. [facility] Medical History Anxiety Asthma Depression Diarrhea Endometriosis Gastroparesis GERD (gastroesophageal reflux disease) Migraine OCD (obsessive compulsive disorder) Pelvic pain POTS (postural orthostatic tachycardia syndrome) PTSD (post-traumatic stress disorder) Schizophrenia Tachycardia Upper abdominal pain Home Medications albuterol sulfate 90 mcg/actuation aerosol inhaler 2 puff inhalation PRN PRN Wheezing 06/14/21 [History Last Taken Unknown] epinephrine 0.3 mg/0.3 mL injection, auto-injector 1 mg IM PRN PRN Allergic Reaction 06/14/21 [History Last Taken Unknown] aripiprazole 2 mg tablet 5 mg PO QHS 07/31/21 [History Last Taken Unknown] fluoxetine 10 mg capsule 3 cap PO DAILY 10/06/21 [History Last Taken Unknown] omeprazole 40 mg capsule,delayed release 40 mg PO DAILY #30 caps 12/08/21 [Rx Last Taken Unknown] diclofenac sodium 75 mg tablet,delayed release 75 mg PO BID PRN pain 01/04/22 [History Last Taken Unknown] medroxyprogesterone 150 mg/mL intramuscular suspension (Depo-Provera) 150 mg IM Q6W 01/04/22 [History Last Taken Unknown] topiramate 100 mg tablet 125 mg PO QHS 01/04/22 [History Last Taken Unknown] prazosin 1 mg capsule 2 mg PO DAILY 03/19/22 [History Last Taken Unknown] trazodone 50 mg tablet 50 mg PO QHS 03/19/22 [History Last Taken Unknown] promethazine 25 mg tablet 25 mg PO TID PRN nausea and vomiting #10 tabs 03/25/22 [Rx Last Taken Unknown] prochlorperazine maleate 10 mg tablet 10 mg PO BID PRN Nausea 04/29/22 [History Last Taken Unknown] moxifloxacin 400 mg tablet mg 07/19/22 [History Last Taken Unknown] metoclopramide HCl 5 mg tablet 2.5 mg (1/2 x 5 mg) PO QAC #15 tabs 08/08/22 [Rx Last Taken Unknown] pantoprazole 40 mg tablet,delayed release 40 mg PO BID #60 tabs 08/13/22 [Rx Last Taken Unknown] prochlorperazine 25 mg rectal suppository 25 mg IL Q12H 30 days #1,000 ea 08/13/22 [Rx Last Taken Unknown] ondansetron 4 mg disintegrating tablet 4 mg PO Q8H PRN PRN Nausea #10 tabs 09/07/22 [Rx Last Taken Unknown] hydrocortisone acetate 25 mg rectal suppository 25 mg IL BID #24 ea 09/11/22 [Rx Last Taken Unknown] hydrocortisone 1 %-pramoxine 1 % rectal foam (Proctofoam HC) 1 applic IL DAILY 1 week #10 grams 09/20/22 [Rx Last Taken Unknown] nitrofurantoin monohydrate/macrocrystals 100 mg capsule 100 mg PO Q12 #10 CAPSULES 09/20/22 [Rx Last Taken Unknown] potassium chloride 20 mEq tablet,extended release 20 meq PO BID #8 tabs 10/10/22 [Rx Last Taken Unknown] lactulose 10 gram/15 mL (15 mL) oral solution 10 g (15 mL) PO DAILY #600 mL 10/17/22 [Rx Last Taken Unknown] Allergy/AdvReac Type Severity Reaction Status Date / Time gabapentin Allergy Rash Verified 10/26/22 18:25 sertraline [From Zoloft] Allergy Anaphylaxis Verified 10/26/22 18:25 silicone Allergy Rash Verified 10/26/22 18:25 lactose AdvReac Upset Verified 10/26/22 18:25 Stomach NASAL SPRAY Allergy Severe Hives Uncoded 09/26/22 12:54 Family History Father Anxiety Depression Asthma Hypertension Mother Asthma Diabetes Anxiety Depression CAD (coronary artery disease) Myocardial infarction, Onset Age: 42 Brother Oleksandr-Danlos syndrome Grandmother Myocardial infarction, Onset Age: 41 Grandfather Myocardial infarction, Onset Age: 38 Surgical History History of colonoscopy History of esophagogastroduodenoscopy (EGD) Hx of laparoscopy Social History household members: none Smoking Status: Current every day smoker tobacco type: e-cigarettes alcohol intake: current alcohol intake frequency: holidays/special occasions only substance use type: does not use caffeine: Yes Type: carbonated beverages, coffee and tea ROS ROS ED ROS Narrative A complete review of systems was performed and is negative except as documented in the history of present illness. Some specific details below. Constitutional: No recent fevers or chills. Slight malaise EYE: No discharge, visual complaints, or pain. ENT: Sore throat for 3 days. But able to swallow and eat without difficulty. Mild nasal congestion. See history of present illness. CV: No chest pain or palpitations Respiratory: Occasional cough but no productivity. No hemoptysis. She has a history of asthma but has not been wheezing. GI: No abdominal pain. No nausea vomiting diarrhea. No blood in stool. : No frequency dysuria or hematuria. Musculoskeletal: No recent trauma. No pains. No swelling. Skin: No rash. Nondiaphoretic. Neuro: No weakness or numbness. Endocrine: No polyuria or polydipsia. EXAM Physical Exam Narrative Exam Narrative: CONSTITUTIONAL: Patient is nontoxic in appearance. The patient looks comfortable. Work of breathing looks normal. HEENT: No notable trauma. Mucous membranes moist. She does have some mild erythema. Tonsils are minimally enlarged. I do not see exudate at this time. They are not even remotely near touching in the middle. Uvula is normal. Nasal passages show mild congestion and clear discharge. Sinuses are nontender. EYES: No conjunctival injection. No proptosis. NECK:No JVD. No stridor. No notable lymphadenopathy. CARDIOVASCULAR: Regular rate. Regular rhythm. No notable murmur. No JVD. RESPIRATORY: No respiratory distress. Breathing is unlabored. No wheezes. No rhonchi. No rales. No pain with a deep breath. Even when I have the patient take a deep breath and blow out quickly I cannot induce a wheeze. GASTROINTESTINAL: Not distended. Bowel sounds are normal. No tenderness. GENITOURINARY: No tenderness over the bladder. No CVA tenderness. MUSCULOSKELETAL: Atraumatic. No peripheral edema. NEUROLOGICAL: Patient is alert and appropriate. No focal deficit noted. SKIN: No noted rashes. No diaphoresis. PSYCHIATRIC: Patient is calm. Mood is appropriate. Const Vital Signs: 10/26/22 18:25 Temperature 97.8 F Temperature Source Temporal Pulse Rate 105 H Respiratory Rate 16 Blood Pressure 115/85 H Blood Pressure Mean 95 Pulse Ox 100 Oxygen Delivery Method Room Air MDM MDM MDM Narrative Medical decision making narrative: Patient has minimal throat erythema. She evidently does have a positive strep. She is already on antibiotics that were just started earlier today. I discussed with her that there is no indication for CT scan of the neck. The primary reason we treat this strep throat is to prevent abscess and there is no clinical indication of it now. I explained that we can certainly do a chest x-ray but she has no productivity of sputum. Her saturations are normal at 100% on room air showing no hypoxia. She has no wheezing. Even if she had a questionable small infiltrate she is on amoxicillin which could be appropriate. I really do not think an x-ray is going to change her therapy at this point. She agrees and is fine not getting this. I explained that we can help her throat by giving her a one-time dose of Decadron. We discussed reasons to return. Discharge Plan Triage Chief Complaint: Shortness of Breath ED Provider: Chaz Toussaint Dx/Rx/DC Orders Clinical Impression: History of asthma, Strep throat Instructions: ED Pharyngitis, Strep (Presumed) Prescriptions: No Action diclofenac sodium 75 mg tablet,delayed release (DR/EC) 75 mg PO BID PRN (Reason: pain) topiramate 100 mg tablet 125 mg PO QHS medroxyprogesterone [Depo-Provera] 150 mg/mL suspension 150 mg IM Q6W Patient Comments: INJECT 1ML INTRAMUSCULARILY EVERY 12 WEEKS metoclopramide HCl 5 mg tablet 2.5 mg PO QAC Qty: 15 2RF Rx Instructions: administer 30 minutes before meals prochlorperazine 25 mg suppository 25 mg IL Q12H 30 Days Qty: 1000 1RF pantoprazole 40 mg tablet,delayed release (DR/EC) 40 mg PO BID Qty: 60 3RF epinephrine 0.3 mg/0.3 mL auto-injector 1 mg IM PRN PRN (Reason: Allergic Reaction) Patient Comments: INJECT INTO THE MUSCLE NEEDED FOR ANAPHYLAXIS REACTION albuterol sulfate 90 mcg/actuation HFA aerosol inhaler 2 puff INHALATION PRN PRN (Reason: Wheezing) Patient Comments: inhale 2 puffs by mouth and INTO THE LUNGS every 4 hours if neede... (REFER TO PRESCRIPTION NOTES). aripiprazole 2 mg tablet 5 mg PO QHS fluoxetine 10 mg capsule 3 cap PO DAILY omeprazole 40 mg capsule,delayed release(DR/EC) 40 mg PO DAILY Qty: 30 0RF trazodone 50 mg tablet 50 mg PO QHS Patient Comments: TAKE 1 OR 2 TABLETS BY MOUTH AT BEDTIME prazosin 1 mg capsule 2 mg PO DAILY Patient Comments: take 1 capsule by mouth twice a day promethazine 25 mg tablet 25 mg PO TID PRN (Reason: nausea and vomiting) Qty: 10 0RF prochlorperazine maleate 10 mg tablet 10 mg PO BID PRN (Reason: Nausea) Patient Comments: take 1 tablet by mouth every 8 hours if needed for NAUSEA/VOMITTING moxifloxacin 400 mg tablet ondansetron 4 mg tablet,disintegrating 4 mg PO Q8H PRN PRN (Reason: Nausea) Qty: 10 0RF nitrofurantoin monohyd/m-cryst [nitrofurantoin monohyd/m-cryst] 100 mg capsule 100 mg PO Q12 Qty: 10 0RF Proctofoam HC 1-1 % foam 1 applic IL DAILY 7 Days Qty: 10 0RF potassium chloride 20 mEq tablet extended release 20 meq PO BID Qty: 8 0RF hydrocortisone acetate 25 mg suppository 25 mg IL BID Qty: 24 2RF lactulose 10 gram/15 mL (15 mL) solution 10 g PO DAILY Qty: 600 0RF Primary Care Provider: Monica Patterson Referrals: Monica Patterson, [facility] [Primary Care Provider] - 3-5 Days if not improving Disposition Disposition: Home, Self Care
[2022-10-26] MEDS: dexAMETHasone 4 MG Tablet 10 MG PO (19:26)
[2022-10-26 19:28] VITALS: BP 115/62; PULSE 90; RESP 16; O2SAT 100
== END 2022-10-26 19:30 | disposition home or self-care (01) ==
LOC: ED 19:25
PROVIDERS: Emergency Provider Emergency Medicine; PCP Nurse Practitioner Family; Visit Provider Emergency Medicine
DX: J02.0 Streptococcal pharyngitis (principal); F20.9 Schizophrenia, unspecified; J45.909 Unspecified asthma, uncomplicated; Z79.899 Other long term (current) drug therapy; F32.A Depression, unspecified; F42.9 Obsessive-compulsive disorder, unspecified; K21.9 Gastro-esophageal reflux disease without esophagitis; Z79.3 Long term (current) use of hormonal contraceptives; G43.909 Migraine, unspecified, not intractable, without status migrainosus; F17.290 Nicotine dependence, other tobacco product, uncomplicated
CPT/HCPCS: 99283

== ENCOUNTER 2022-11-10 18:18 | Emergency (ER) | payer MEDICAID, SELFPAY ==
[2022-11-10 18:18] VITALS: O2SAT 99
[2022-11-10 18:19] VITALS: BP 127/75; PULSE 80; RESP 18; TEMP 36.4; O2SAT 98; BMI 27.8
--- NOTE | 2022-11-10 18:41 | EDS_ITS ---
HPI <MOY Fenton - Last Filed: 11/10/22 19:36> History of Present Illness Chief Complaint: Shortness of Breath Narrative Narrative: Patient is a 22-year-old female with history of PTSD, anxiety, depression, asthma GERD POTS and chronic pelvic issues who presents to the emergency department for multiple complaints. Patient states that she felt short of breath at 2 PM this morning. Patient also had vaginal bleeding with clots. Patient's last menstrual cycle was 2 weeks ago. Patient states she is not . Patient does have history of chronic pelvic pain. 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 Patient denies any chest pain. Patient dates the shortness of breath has ceased. PFSH <MOY Fenton - Last Filed: 11/10/22 19:36> [facility] Medical History Anxiety Asthma Depression Diarrhea Endometriosis Gastroparesis GERD (gastroesophageal reflux disease) Migraine OCD (obsessive compulsive disorder) Pelvic pain POTS (postural orthostatic tachycardia syndrome) PTSD (post-traumatic stress disorder) Schizophrenia Tachycardia Upper abdominal pain Home Medications albuterol sulfate 90 mcg/actuation aerosol inhaler 2 puff inhalation PRN PRN Wheezing 06/14/21 [History Last Taken Unknown] epinephrine 0.3 mg/0.3 mL injection, auto-injector 1 mg IM PRN PRN Allergic Reaction 06/14/21 [History Last Taken Unknown] aripiprazole 2 mg tablet 5 mg PO QHS 07/31/21 [History Last Taken Unknown] fluoxetine 10 mg capsule 3 cap PO DAILY 10/06/21 [History Last Taken Unknown] omeprazole 40 mg capsule,delayed release 40 mg PO DAILY #30 caps 12/08/21 [Rx Last Taken Unknown] diclofenac sodium 75 mg tablet,delayed release 75 mg PO BID PRN pain 01/04/22 [History Last Taken Unknown] medroxyprogesterone 150 mg/mL intramuscular suspension (Depo-Provera) 150 mg IM Q6W 01/04/22 [History Last Taken Unknown] topiramate 100 mg tablet 125 mg PO QHS 01/04/22 [History Last Taken Unknown] prazosin 1 mg capsule 2 mg PO DAILY 03/19/22 [History Last Taken Unknown] trazodone 50 mg tablet 50 mg PO QHS 03/19/22 [History Last Taken Unknown] promethazine 25 mg tablet 25 mg PO TID PRN nausea and vomiting #10 tabs 03/25/22 [Rx Last Taken Unknown] prochlorperazine maleate 10 mg tablet 10 mg PO BID PRN Nausea 04/29/22 [History Last Taken Unknown] moxifloxacin 400 mg tablet mg 07/19/22 [History Last Taken Unknown] metoclopramide HCl 5 mg tablet 2.5 mg (1/2 x 5 mg) PO QAC #15 tabs 08/08/22 [Rx Last Taken Unknown] pantoprazole 40 mg tablet,delayed release 40 mg PO BID #60 tabs 08/13/22 [Rx Last Taken Unknown] prochlorperazine 25 mg rectal suppository 25 mg UT Q12H 30 days #1,000 ea 08/13/22 [Rx Last Taken Unknown] ondansetron 4 mg disintegrating tablet 4 mg PO Q8H PRN PRN Nausea #10 tabs 09/07/22 [Rx Last Taken Unknown] hydrocortisone acetate 25 mg rectal suppository 25 mg UT BID #24 ea 09/11/22 [Rx Last Taken Unknown] hydrocortisone 1 %-pramoxine 1 % rectal foam (Proctofoam HC) 1 applic UT DAILY 1 week #10 grams 09/20/22 [Rx Last Taken Unknown] nitrofurantoin monohydrate/macrocrystals 100 mg capsule 100 mg PO Q12 #10 CAPSULES 09/20/22 [Rx Last Taken Unknown] potassium chloride 20 mEq tablet,extended release 20 meq PO BID #8 tabs 10/10/22 [Rx Last Taken Unknown] lactulose 10 gram/15 mL (15 mL) oral solution 10 g (15 mL) PO DAILY #600 mL 10/17/22 [Rx Last Taken Unknown] Allergy/AdvReac Type Severity Reaction Status Date / Time gabapentin Allergy Rash Verified 11/10/22 18:21 sertraline [From Zoloft] Allergy Anaphylaxis Verified 11/10/22 18:21 silicone Allergy Rash Verified 11/10/22 18:21 lactose AdvReac Upset Verified 11/10/22 18:21 Stomach NASAL SPRAY Allergy Severe Hives Uncoded 09/26/22 12:54 Family History Father Anxiety Depression Asthma Hypertension Mother Asthma Diabetes Anxiety Depression CAD (coronary artery disease) Myocardial infarction, Onset Age: 42 Brother Oleksandr-Danlos syndrome Grandmother Myocardial infarction, Onset Age: 41 Grandfather Myocardial infarction, Onset Age: 38 Surgical History History of colonoscopy History of esophagogastroduodenoscopy (EGD) Hx of laparoscopy Social History household members: none Smoking Status: Current every day smoker tobacco type: e-cigarettes alcohol intake: current alcohol intake frequency: holidays/special occasions only substance use type: does not use caffeine: Yes Type: carbonated beverages, coffee and tea ROS <MOY Fenton - Last Filed: 11/10/22 19:36> ROS ED ROS Narrative Constitutional: Negative for fever, chills, weight loss, weakness Eyes: Negative for vision loss, vision change, double vision ENT: Negative for any sore throat, ear pain, congestion Cardiovascular: Negative for any chest pain, tightness, palpitations Respiratory: Negative for any cough, sputum production, hemoptysis, dyspnea on exertion, orthopnea. Positive for dyspnea Gastrointestinal: Negative for any abdominal pain, nausea, vomiting, diarrhea, constipation, blood in stool, blood in vomit : Negative for any urinary frequency, dysuria, retention, blood in urine. Positive for vaginal bleeding Muscle skeletal: Negative for any muscle joint pain, stiffness, myalgias, art hralgias, neck pain, back pain Neurological: Negative for any headache, syncope, numbness or tingling, dizziness Skin: Negative for any rashes, lumps, itching, abrasions, lacerations Psychiatric: Negative for any depression, anxiety, stress, suicidal ideation, homicidal ideation Hematologic: Negative for any easy bruising, excessive bruising, easy bleeding Allergies: Negative for any eczema, hives, rash EXAM <MOY Fenton - Last Filed: 11/10/22 19:36> Physical Exam Narrative Exam Narrative: Vital signs reviewed. HEET: Head normocephalic atraumatic, TMs clear bilaterally. Posterior pharynx is clear, moist mucous membranes. Nares clear bilaterally. Neck: Supple with no lymphadenopathy or tenderness. No signs of meningismus, negative jolt sign. Cardiac: Regular rate and rhythm no murmurs gallops or rubs, equal peripheral pulses bilaterally. Respiratory: Lungs clear to auscultation bilaterally. No chest tenderness. Abdomen: Soft, nontender, nondistended. No abdominal bruit or pulsatile masses. No hepatosplenomegaly Extremities: No peripheral edema, no signs of gross trauma or deformity. Active full range of motion of all extremities. Neuro: Cranial nerves II through XII intact, no focal neurological deficits. Skin: Clean dry and intact with no rash, purpura, petechiae, vesicles or pustules. Backs/flank: No CVA tenderness, no midline spinal tenderness, no deformity. Psych: Normal mood and affect. No SI, HI or acute psychosis. Const Vital Signs: 11/10/22 18:19 11/10/22 18:18 Temperature 97.5 F L Temperature Source Temporal Pulse Rate 80 Respiratory Rate 18 Respiratory Effort Normal Respiratory Depth Normal Respiratory Pattern Normal Blood Pressure 127/75 H Blood Pressure Mean 92 Pulse Ox 98 Oxygen Delivery Method Room Air Room Air Positive well nourished and well developed General Appearance ED: well developed <Dr. Alexei Chakraborty DO - Last Filed: 11/10/22 19:37> Physical Exam Const Vital Signs: 11/10/22 18:19 11/10/22 18:18 Temperature 97.5 F L Temperature Source Temporal Pulse Rate 80 Respiratory Rate 18 Respiratory Effort Normal Respiratory Depth Normal Respiratory Pattern Normal Blood Pressure 127/75 H Blood Pressure Mean 92 Pulse Ox 98 Oxygen Delivery Method Room Air Room Air MDM <MOY Fenton - Last Filed: 11/10/22 19:36> [facility] Lab Data Labs: Laboratory Results - last 24 hr 11/10/22 11/10/22 18:58 19:15 WBC 7.9 RBC 5.01 Hgb 13.2 Hct 39.5 MCV 78.8 L MCH 26.3 L MCHC 33.4 RDW Std Deviation 40.0 RDW Coeff of Anoop 14.0 Plt Count 397 MPV 8.5 Immature Gran % (Auto) 0.300 Neut % (Auto) 62.5 Lymph % (Auto) 28.1 Armstrong % (Auto) 7.5 Eos % (Auto) 1.1 Baso % (Auto) 0.5 Absolute Neuts (auto) 4.9 Absolute Lymphs (auto) 2.22 Nucleated RBC % 0 Sodium 140 Potassium 3.7 Chloride 110 H Carbon Dioxide 24.0 Anion Gap 6 BUN 8 Creatinine 0.81 Estim Creat Clear Calc 94.87 Est GFR (MDRD) Af Amer 114 Est GFR (MDRD) Non-Af 94 BUN/Creatinine Ratio 9.9 L Glucose 77 Calcium 9.2 Urine Color Yellow Urine Clarity Clear Urine pH 7.0 Ur Specific [place] 1.010 Urine Protein Negative Urine Glucose (UA) Normal Urine Ketones Negative Urine Occult Blood 250 H Urine Nitrite Negative Urine Bilirubin Negative Urine Urobilinogen Normal Ur Leukocyte Esterase 25 H Urine RBC 0-5 SEEN Urine WBC 0-5 SEEN Ur Squamous Epith Cells 0-5 SEEN Urine Bacteria 0 SEEN Urine Mucus 0 SEEN Urine Test Negative Treatment and Re-Evaluation :: Patient appears generally well, patient appears nontoxic, vital signs are stable. Patient presents to the emergency department with complaints of vaginal bleeding, shortness of breath episode that occurred roughly around 2 AM. Patient is in no respiratory distress. Patient's abdomen is unremarkable. Patient has no active bleeding. Patient received basic laboratory values, patient CBC was unremarkable, hemoglobin was 13.2 which is normal. Patient is chemistries were unremarkable. Patient's urinalysis was unremarkable for any acute process. No infection. Patient is not . At this time, patient is stable for discharge. There is no acute hemorrhage, UTI, electrolyte imba alicia. Patient is not anemic. At this time, patient stable for discharge and will follow-up outpatient. Patient does have chronic pelvic pain and will continue to follow-up with her PANEL FLOW MACHINE OPERATOR. <Dr. Alexei Chakraborty, DO - Last Filed: 11/10/22 19:37> [facility] Narrative Medical decision making narrative: I have personally performed a face to face assessment of the patient and have reviewed the ALANIS Note. I performed a substantive portion of the visit including all aspects of the following. My lawson findings include: History: Patient presents with shortness of breath and vaginal bleeding. Patient states that today she passed a large clot and came to the emergency department. Patient states she called her PANEL FLOW MACHINE OPERATOR doctor who referred her to the emergency department because of her shortness of breath. Currently, patient states her breathing has improved. Patient denies any cough. Patient denies any chest pain. Patient admits to some nausea but denies any vomiting. Exam: Vital signs are stable. Patient is afebrile. Patient is in no acute distress. Oral mucosa is pink and moist. Neck is supple. Trachea is midline. There is no JVD. Heart was regular rate and rhythm. Lungs are clear and equal bilaterally. There is good respiratory effort. There are no retractions noted. Abdomen is soft. Bowel sounds are normal. There is some mild left adnexal tenderness. There is no rebound or guarding noted. Cranial nerves II through XII are intact. There are no focal motor or sensory deficits noted. Medical Decision Making: Differential diagnosis includes dysmenorrhea, ovarian cyst, ectopic , urinary tract infection, and viral upper respiratory infection. CBC will be obtained to assess for anemia and leukocytosis. Basic metabolic profile will be obtained to assess for electrolyte abnormality and renal function. Urinalysis will be obtained to assess for urinary tract infection. Urine hCG will be obtained to assess for . CBC was reviewed and was within normal limits. Basic metabolic profile was reviewed and was within normal limits. Urinalysis was reviewed. There is no evidence of urinary tract infection or hematuria. Urine hCG was reviewed and wa s negative. Patient was advised of her findings. Patient was instructed to follow-up with her primary care physician and PANEL FLOW MACHINE OPERATOR in 5 to 7 days. Patient understood and was agreeable with the plan. All questions were answered. Lab Data Labs: Laboratory Results - last 24 hr 11/10/22 11/10/22 18:58 19:15 WBC 7.9 RBC 5.01 Hgb 13.2 Hct 39.5 MCV 78.8 L MCH 26.3 L MCHC 33.4 RDW Std Deviation 40.0 RDW Coeff of Anoop 14.0 Plt Count 397 MPV 8.5 Immature Gran % (Auto) 0.300 Neut % (Auto) 62.5 Lymph % (Auto) 28.1 Armstrong % (Auto) 7.5 Eos % (Auto) 1.1 Baso % (Auto) 0.5 Absolute Neuts (auto) 4.9 Absolute Lymphs (auto) 2.22 Nucleated RBC % 0 Sodium 140 Potassium 3.7 Chloride 110 H Carbon Dioxide 24.0 Anion Gap 6 BUN 8 Creatinine 0.81 Estim Creat Clear Calc 94.87 Est GFR (MDRD) Af Amer 114 Est GFR (MDRD) Non-Af 94 BUN/Creatinine Ratio 9.9 L Glucose 77 Calcium 9.2 Urine Color Yellow Urine Clarity Clear Urine pH 7.0 Ur Specific [place] 1.010 Urine Protein Negative Urine Glucose (UA) Normal Urine Ketones Negative Urine Occult Blood 250 H Urine Nitrite Negative Urine Bilirubin Negative Urine Urobilinogen Normal Ur Leukocyte Esterase 25 H Urine RBC 0-5 SEEN Urine WBC 0-5 SEEN Ur Squamous Epith Cells 0-5 SEEN Urine Bacteria 0 SEEN Urine Mucus 0 SEEN Urine Test Negative Discharge Plan Triage Chief Complaint: Shortness of Breath ED Midlevel Provider: Sumanth Potts ED Provider: Alexei Chakraborty Dx/Rx/DC Orders Prescriptions: No Action diclofenac sodium 75 mg tablet,delayed release (DR/EC) 75 mg PO BID PRN (Reason: pain) topiramate 100 mg tablet 125 mg PO QHS medroxyprogesterone [Depo-Provera] 150 mg/mL suspension 150 mg IM Q6W Patient Comments: INJECT 1ML INTRAMUSCULARILY EVERY 12 WEEKS metoclopramide HCl 5 mg tablet 2.5 mg PO QAC Qty: 15 2RF Rx Instructions: administer 30 minutes before meals prochlorperazine 25 mg suppository 25 mg UT Q12H 30 Days Qty: 1000 1RF pantoprazole 40 mg tablet,delayed release (DR/EC) 40 mg PO BID Qty: 60 3RF epinephrine 0.3 mg/0.3 mL auto-injector 1 mg IM PRN PRN (Reason: Allergic Reaction) Patient Comments: INJECT INTO THE MUSCLE NEEDED FOR ANAPHYLAXIS REACTION albuterol sulfate 90 mcg/actuation HFA aerosol inhaler 2 puff INHALATION PRN PRN (Reason: Wheezing) Patient Comments: inhale 2 puffs by mouth and INTO THE LUNGS every 4 hours if neede... (REFER TO PRESCRIPTION NOTES). aripiprazole 2 mg tablet 5 mg PO QHS fluoxetine 10 mg capsule 3 cap PO DAILY omeprazole 40 mg capsule,delayed release(DR/EC) 40 mg PO DAILY Qty: 30 0RF trazodone 50 mg tablet 50 mg PO QHS Patient Comments: TAKE 1 OR 2 TABLETS BY MOUTH AT BEDTIME prazosin 1 mg capsule 2 mg PO DAILY Patient Comments: take 1 capsule by mouth twice a day promethazine 25 mg tablet 25 mg PO TID PRN (Reason: nausea and vomiting) Qty: 10 0RF prochlorperazine maleate 10 mg tablet 10 mg PO BID PRN (Reason: Nausea) Patient Comments: take 1 tablet by mouth every 8 hours if needed for NAUSEA/VOMITTING moxifloxacin 400 mg tablet ondansetron 4 mg tablet,disintegrating 4 mg PO Q8H PRN PRN (Reason: Nausea) Qty: 10 0RF nitrofurantoin monohyd/m-cryst [nitrofurantoin monohyd/m-cryst] 100 mg capsule 100 mg PO Q12 Qty: 10 0RF Proctofoam HC 1-1 % foam 1 applic UT DAILY 7 Days Qty: 10 0RF potassium chloride 20 mEq tablet extended release 20 meq PO BID Qty: 8 0RF hydrocortisone acetate 25 mg suppository 25 mg UT BID Qty: 24 2RF lactulose 10 gram/15 mL (15 mL) solution 10 g PO DAILY Qty: 600 0RF Primary Care Provider: Monica Patterson Referrals: Monica Patterson, NETWORK SYSTEMS ANALYST-C [Primary Care Provider] -
[2022-11-10 19:04] LABS: Absolute Lymphocyte Count 2.22 X10^3/uL (0.83-4.51); Absolute Neutrophil Count 4.9 X10^3/uL (2.0-7.7); Basophil# 0.04 X10^3/uL; Basophil% 0.5 % (0-1); Eosinophil# 0.09 X10^3/uL; Eosinophils% 1.1 % (0-5); Hematocrit 39.5 % (37-47); Hemoglobin 13.2 g/dL (12.0-15.0); Lymphocyte # 2.22 X10^3/ul (0.83-4.51); Lymphocyte % 28.1 % (19-41); Mean Corp Hgb Conc 33.4 g/dL (32-36); Mean Corpuscular Hgb 26.3 pg (27.0-32.0); Mean Corpuscular Volume 78.8 fL (81-99); Mean Platelet Vol. 8.5 fl (6.2-12.0); Monocyte# 0.59 X10^3/uL; Monocyte% 7.5 % (0-10); NRBC Flagged by Analyzer 0 % (0-5); Neutrophil # 4.94 X10^3/uL (2.7-7.7); Neutrophil % 62.5 % (47-70); Platelet Count 397 K/mm3 (150-450); Red Blood Count 5.01 M/mm3 (4.2-5.4); White Blood Count 7.9 K/mm3 (4.4-11.0)
[2022-11-10 19:19] LABS: Anion Gap 6 (5-15); BUN 8 mg/dL (7-18); BUN/Creat Ratio 9.9 RATIO (10-20); Calcium,Total 9.2 mg/dL (8.5-10.1); Chloride 110 mmol/L (98-107); Creatinine, Serum 0.81 mg/dL (0.55-1.02); EST Glomerular Filtration Rate 94 mL/min (>60); Est Glom Filt Rate - Afr Amer 114 mL/min (>60); Estimated Creatinine Clearance 94.87 ml/min; Glucose 77 mg/dL (74-106); Potassium 3.7 mmol/L (3.5-5.1); Sodium Level 140 mmol/L (136-145)
[2022-11-10 19:21] LABS: Bacteria 0 SEEN /hpf (None Seen); Mucous, Urine 0 SEEN /hpf (<or=2+)
[2022-11-10 19:23] LABS: Color, Urine Yellow (Yellow); Glucose, Dipstick Normal (Normal); Ketone-Dipstick Negative (Negative); Leukocyte Esterase-Dipstick 25 /ul (Negative); Nitrite-Dipstick Negative (Negative); Occult Blood-Urine 250 /ul (Negative); Protein-Dipstick Negative (Negative); Urine Bilirubin Dipstick Negative (Negative); Urine Clarity Clear (Clear); Urine Urobilinogen Normal (Normal)
[2022-11-10 19:32] LABS: Internal QC Validated? YES +Cl - CLEAR BKGD; Pregnancy, Urine Negative Negative; Red Blood Cells-Urine 0-5 SEEN /hpf (0-5); Squamous Epithelial Cells - UA 0-5 SEEN /hpf (5-10); White Blood Cells 0-5 SEEN /hpf (0-5)
== END 2022-11-10 20:01 | disposition home or self-care (01) ==
PROVIDERS: Nurse Practitioner; Emergency Provider Emergency Medicine; PCP Nurse Practitioner Family; Visit Provider Emergency Medicine
DX: R06.02 Shortness of breath (principal); F20.9 Schizophrenia, unspecified; N93.9 Abnormal uterine and vaginal bleeding, unspecified; F41.9 Anxiety disorder, unspecified; J45.909 Unspecified asthma, uncomplicated; Z79.899 Other long term (current) drug therapy; F32.A Depression, unspecified; K21.9 Gastro-esophageal reflux disease without esophagitis; Z79.3 Long term (current) use of hormonal contraceptives; F17.290 Nicotine dependence, other tobacco product, uncomplicated
CPT/HCPCS: 80048; 81001; 81025; 85025; 99283

== ENCOUNTER 2022-12-02 19:00 | Emergency (ER) | payer MEDICAID, SELFPAY ==
[2022-12-02 19:01] VITALS: BP 128/81; PULSE 75; RESP 16; TEMP 36.6; O2SAT 100; BMI 27.8
--- NOTE | 2022-12-02 19:17 | EDS_ITS ---
<Statement entered by Sumanth Garcia MD - 12/02/22 20:41> Pt seen & evaluated w/[facility]AN[facility]. I personally interviewed & exam the pt. I was involved in all aspects of pt's orders, interpretation of results & treatment HPI History of Present Illness Chief Complaint: Abd Pain Narrative Narrative: Patient presenting today with abdominal pain to her left and right upper quadrant that radiates to her back that she has had since yesterday. She reports a history of chronic abdominal pain, gastroparesis, and gastritis. She reports that this feels like her typical abdominal pain. She also reports pain to her legs bilaterally, and fatigue. She reports that she follows with Dr. Hdz. PMH includes anxiety, depression, PTSD, endometriosis, gastroparesis, gastritis. [facility] Medical History Anxiety Asthma Depression Diarrhea Endometriosis Gastroparesis GERD (gastroesophageal reflux disease) Migraine OCD (obsessive compulsive disorder) Pelvic pain POTS (postural orthostatic tachycardia syndrome) PTSD (post-traumatic stress disorder) Schizophrenia Tachycardia Upper abdominal pain Home Medications albuterol sulfate 90 mcg/actuation aerosol inhaler 2 puff inhalation PRN PRN Wheezing 06/14/21 [History Last Taken Unknown] epinephrine 0.3 mg/0.3 mL injection, auto-injector 1 mg IM PRN PRN Allergic Reaction 06/14/21 [History Last Taken Unknown] aripiprazole 2 mg tablet 5 mg PO QHS 07/31/21 [History Last Taken Unknown] fluoxetine 10 mg capsule 3 cap PO DAILY 10/06/21 [History Last Taken Unknown] diclofenac sodium 75 mg tablet,delayed release 75 mg PO BID PRN pain 01/04/22 [History Last Taken Unknown] medroxyprogesterone 150 mg/mL intramuscular suspension (Depo-Provera) 150 mg IM Q6W 01/04/22 [History Last Taken Unknown] topiramate 100 mg tablet 125 mg PO QHS 01/04/22 [History Last Taken Unknown] prazosin 1 mg capsule 2 mg PO DAILY 03/19/22 [History Last Taken Unknown] trazodone 50 mg tablet 50 mg PO QHS 03/19/22 [History Last Taken Unknown] promethazine 25 mg tablet 25 mg PO TID PRN nausea and vomiting #10 tabs 03/25/22 [Rx Last Taken Unknown] metoclopramide HCl 5 mg tablet 2.5 mg (1/2 x 5 mg) PO QAC #15 tabs 08/08/22 [Rx Last Taken Unknown] pantoprazole 40 mg tablet,delayed release 40 mg PO BID #60 tabs 08/13/22 [Rx Last Taken Unknown] ondansetron 4 mg disintegrating tablet 4 mg PO Q8H PRN PRN Nausea #10 tabs 09/07/22 [Rx Last Taken Unknown] hydrocortisone 1 %-pramoxine 1 % rectal foam (Proctofoam HC) 1 applic [place] DAILY 1 week #10 grams 09/20/22 [Rx Last Taken Unknown] lactulose 10 gram/15 mL (15 mL) oral solution 10 g (15 mL) PO DAILY #600 mL 10/17/22 [Rx Last Taken Unknown] cephalexin 500 mg capsule 500 mg PO Q12 #10 CAPSULES 12/02/22 [Rx Last Taken Un known] Allergy/AdvReac Type Severity Reaction Status Date / Time gabapentin Allergy Rash Verified 12/02/22 19:00 sertraline [From Zoloft] Allergy Anaphylaxis Verified 12/02/22 19:00 silicone Allergy Rash Verified 12/02/22 19:00 lactose AdvReac Upset Verified 12/02/22 19:00 Stomach Family History Father Anxiety Depression Asthma Hypertension Mother Asthma Diabetes Anxiety Depression CAD (coronary artery disease) Myocardial infarction, Onset Age: 42 Brother Oleksandr-Danlos syndrome Grandmother Myocardial infarction, Onset Age: 41 Grandfather Myocardial infarction, Onset Age: 38 Surgical History History of colonoscopy History of esophagogastroduodenoscopy (EGD) Hx of laparoscopy Social History household members: none Smoking Status: Current every day smoker tobacco type: e-cigarettes alcohol intake: current alcohol intake frequency: holidays/special occasions only substance use type: does not use caffeine: Yes Type: carbonated beverages, coffee and tea ROS ROS ED Constitutional Constitutional ED: Denies chills or fever(s) Cardiovascular Cardiovascular: Denies chest pain Respiratory/Chest Respiratory/Chest: Denies cough or dyspnea Gastrointestinal Gastrointestinal: Reports abdominal pain and nausea; Denies vomiting Genitourinary Genitourinary ED: Denies dysuria, hematuria or urinary urgency Musculoskeletal Musculoskeletal: Reports back pain and myalgias Integumentary Denies rash Neurologic Neurologic: Denies paresthesias or weakness EXAM Physical Exam Const Vital Signs: 12/02/22 19:01 Temperature 97.8 F Temperature Source Temporal Pulse Rate 75 Respiratory Rate 16 Blood Pressure 128/81 H Blood Pressure Mean 96 Pulse Ox 100 Positive well nourished, well developed and no apparent distress General Appearance ED: well developed HEENT Reports normocephalic and head/scalp atraumatic Mouth ED: Yes moist mucous membranes normal Eyes PERRL and EOMs intact bilaterally Neck full ROM and supple Chest Wall inspection of chest normal Resp normal respiratory effort and clear to auscultation bilaterally Cardio regular rate and regular rhythm GI soft to palpation, non-distended and no masses GI Narrative: Generalized tenderness to palpation across the upper abdomen without any rigidity, guarding, or rebound tenderness. Back/Spine normal ROM and normal to inspection Extremity normal to inspection and full ROM Neuro oriented x3, CN's II-XII intact bilaterally, moves all extremities, no focal motor deficits and no sensory deficits noted Sensorium / Orientation: awake and alert Psych mental status grossly normal and thought process normal Skin no rashes or lesions noted and no wounds MDM MDM MDM Narrative Medical decision making narrative: Patient presenting today due to an exacerbation of her chronic abdominal pain. She reports that this feels like her normal abdominal pain as she has a history of gastroparesis and gastritis. She is well-appearing and in no acute distress, vitals are unremarkable. She has had nausea without any vomiting or diarrhea. Patient is very minimal tenderness palpation across the upper abdomen but overall I do feel that patient's abdomen is unremarkable, I do not feel that a CT is indicated at this time. Labs will be obtained to rule out leukocytosis, anemia, electrolyte abnormality, UTI, and pancreatitis. Labs and are all are unremarkable. She was given Zofran, Toradol, and IV fluids. On reexamination patient reports that she is much better and would like to go home. She reports that she already has nausea medicine at home and does not need a prescription for anything additional. Patient does appear to have a mild UTI and will be given a few days worth of Keflex with first dose here. She will be discharged home in stable condition and is comfortable with plan. Lab Data Attestation: I reviewed the patient's lab results. Labs: Laboratory Results - last 24 hr 12/02/22 12/02/22 19:19 20:00 WBC 8.0 RBC 4.98 Hgb 12.3 Hct 39.8 MCV 79.9 L MCH 24.7 L MCHC 30.9 L RDW Std Deviation 39.0 RDW Coeff of Anoop 13.5 Plt Count 446 MPV 8.4 Immature Gran % (Auto) 0.200 Neut % (Auto) 60.3 Lymph % (Auto) 28.7 [place] % (Auto) 9.6 Eos % (Auto) 0.7 Baso % (Auto) 0.5 Absolute Neuts (auto) 4.8 Absolute Lymphs (auto) 2.30 Nucleated RBC % 0 Sodium 139 Potassium 3.8 Chloride 110 H Carbon Dioxide 26.0 Anion Gap 3 L BUN 8 Creatinine 1.06 H Estim Creat Clear Calc 72.50 Est GFR (MDRD) Af Amer 84 Est GFR (MDRD) Non-Af 69 BUN/Creatinine Ratio 7.5 L Glucose 91 Calcium 8.5 Total Bilirubin 0.30 AST 14 L ALT 22 Alkaline Phosphatase 92 Total Protein 7.1 Albumin 3.0 L Globulin 4.1 Albumin/Globulin Ratio 0.7 L Lipase 23 Urine Color Yellow Urine Clarity Clear Urine pH 6.5 Ur Specific [place] 1.020 Urine Protein 15 H Urine Glucose (UA) Normal Urine Ketones 5 H Urine Occult Blood Negative Urine Nitrite Negative Urine Bilirubin Negative Urine Urobilinogen Normal Ur Leukocyte Esterase 100 H Urine RBC 0 SEEN Urine WBC 10-25 SEEN Ur Squamous Epith Cells 0-5 SEEN Urine Bacteria 1+ Urine Mucus 0 SEEN Urine Test Negative Discharge Plan Triage Chief Complaint: Abd Pain ED Midlevel Provider: Zeny Kim ED Provider: Sumanth Garcia Dx/Rx/DC Orders Clinical Impression: Abdominal pain, Nausea, UTI (urinary tract infection), Gastroparesis Instructions: Abdominal Pain, ED Cystitis Female Adult Prescriptions: New cephalexin 500 mg capsule 500 mg PO Q12 Qty: 10 0RF No Action diclofenac sodium 75 mg tablet,delayed release (DR/EC) 75 mg PO BID PRN (Reason: pain) topiramate 100 mg tablet 125 mg PO QHS medroxyprogesterone [Depo-Provera] 150 mg/mL suspension 150 mg IM Q6W Patient Comments: INJECT 1ML INTRAMUSCULARILY EVERY 12 WEEKS metoclopramide HCl 5 mg tablet 2.5 mg PO QAC Qty: 15 2RF Rx Instructions: administer 30 minutes before meals pantoprazole 40 mg tablet,delayed release (DR/EC) 40 mg PO BID Qty: 60 3RF epinephrine 0.3 mg/0.3 mL auto-injector 1 mg IM PRN PRN (Reason: Allergic Reaction) Patient Comments: INJECT INTO THE MUSCLE NEEDED FOR ANAPHYLAXIS REACTION albuterol sulfate 90 mcg/actuation HFA aerosol inhaler 2 puff INHALATION PRN PRN (Reason: Wheezing) Patient Comments: inhale 2 puffs by mouth and INTO THE LUNGS every 4 hours if neede... (REFER TO PRESCRIPTION NOTES). aripiprazole 2 mg tablet 5 mg PO QHS fluoxetine 10 mg capsule 3 cap PO DAILY trazodone 50 mg tablet 50 mg PO QHS Patient Comments: TAKE 1 OR 2 TABLETS BY MOUTH AT BEDTIME prazosin 1 mg capsule 2 mg PO DAILY Patient Comments: take 1 capsule by mouth twice a day promethazine 25 mg tablet 25 mg PO TID PRN (Reason: nausea and vomiting) Qty: 10 0RF ondansetron 4 mg tablet,disintegrating 4 mg PO Q8H PRN PRN (Reason: Nausea) Qty: 10 0RF Proctofoam HC 1-1 % foam 1 applic [place] DAILY 7 Days Qty: 10 0RF lactulose 10 gram/15 mL (15 mL) solution 10 g PO DAILY Qty: 600 0RF Primary Care Provider: Monica Patterson Referrals: Monica Patterson, [employer] [Primary Care Provider] - 3-5 Days Activity Restrictions/Additional Instructions: Please follow-up with your PCP and return for any worsening of your symptoms. Disposition Disposition: Home, Self Care
[2022-12-02] MEDS: Ketorolac 15 MG/ML Vial IV (19:22)
[2022-12-02] MEDS: Ondansetron 4 MG/2 ML Vial IV (19:22)
[2022-12-02 19:23] LABS: Absolute Neutrophil Count 4.8 X10^3/uL (2.0-7.7); Basophil# 0.04 X10^3/uL; Basophil% 0.5 % (0-1); Eosinophil# 0.06 X10^3/uL; Eosinophils% 0.7 % (0-5); Hematocrit 39.8 % (37-47); Hemoglobin 12.3 g/dL (12.0-15.0); Lymphocyte % 28.7 % (19-41); Mean Corp Hgb Conc 30.9 g/dL (32-36); Mean Corpuscular Hgb 24.7 pg (27.0-32.0); Mean Corpuscular Volume 79.9 fL (81-99); Mean Platelet Vol. 8.4 fl (6.2-12.0); Monocyte# 0.77 X10^3/uL; Monocyte% 9.6 % (0-10); NRBC Flagged by Analyzer 0 % (0-5); Neutrophil # 4.82 X10^3/uL (2.7-7.7); Neutrophil % 60.3 % (47-70); Platelet Count 446 K/mm3 (150-450); RBC Distribution Width CV 13.5 % (11.6-14.6); Red Blood Count 4.98 M/mm3 (4.2-5.4)
[2022-12-02 19:44] LABS: ALB/GLOB Ratio 0.7 RATIO (0.9-2.4); AST(SGOT) 14 U/L (15-37); Alanine Aminotransfer ALT/SGPT 22 U/L (13-56); Alkaline Phosphatase 92 U/L (45-117); Anion Gap 3 (5-15); BUN 8 mg/dL (7-18); BUN/Creat Ratio 7.5 RATIO (10-20); Calcium,Total 8.5 mg/dL (8.5-10.1); Chloride 110 mmol/L (98-107); Creatinine, Serum 1.06 mg/dL (0.55-1.02); EST Glomerular Filtration Rate 69 mL/min (>60); Est Glom Filt Rate - Afr Amer 84 mL/min (>60); Globulin 4.1 g/dL (2.2-4.2); Glucose 91 mg/dL (74-106); Lipase 23 U/L (13-75); Potassium 3.8 mmol/L (3.5-5.1); Protein, Total 7.1 g/dL (6.4-8.2); Sodium Level 139 mmol/L (136-145)
[2022-12-02] MEDS: 0.9% Normal Saline 1,000 ML 999 ML IV (19:55)
[2022-12-02 20:06] LABS: Mucous, Urine 0 SEEN /hpf (<or=2+); Red Blood Cells-Urine 0 SEEN /hpf (0-5)
[2022-12-02 20:25] LABS: Color, Urine Yellow (Yellow); Glucose, Dipstick Normal (Normal); Ketone-Dipstick 5 mg/dl (Negative); Leukocyte Esterase-Dipstick 100 /ul (Negative); Nitrite-Dipstick Negative (Negative); Occult Blood-Urine Negative /ul (Negative); Protein-Dipstick 15 mg/dl (Negative); Urine Bilirubin Dipstick Negative (Negative); Urine Clarity Clear (Clear); Urine Urobilinogen Normal (Normal); Urine pH 6.5 (5.0 - 8.0)
[2022-12-02 20:26] LABS: Bacteria 1+ /hpf (None Seen); Squamous Epithelial Cells - UA 0-5 SEEN /hpf (5-10)
[2022-12-02 20:27] LABS: Internal QC Validated? YES +Cl - CLEAR BKGD; Pregnancy, Urine Negative Negative; White Blood Cells 10-25 SEEN /hpf (0-5)
[2022-12-02] MEDS: Cephalexin 250 MG Capsule 500 MG PO (20:40)
== END 2022-12-02 20:51 | disposition home or self-care (01) ==
PROVIDERS: Physician Assistant; Emergency Provider Emergency Medicine; PCP Nurse Practitioner Family; Visit Provider Emergency Medicine
DX: R10.9 Unspecified abdominal pain (principal); F20.9 Schizophrenia, unspecified; N39.0 Urinary tract infection, site not specified; K31.84 Gastroparesis; J45.909 Unspecified asthma, uncomplicated; F32.A Depression, unspecified; Z79.899 Other long term (current) drug therapy; Z79.3 Long term (current) use of hormonal contraceptives; G43.909 Migraine, unspecified, not intractable, without status migrainosus; K21.9 Gastro-esophageal reflux disease without esophagitis; F17.290 Nicotine dependence, other tobacco product, uncomplicated; R11.0 Nausea
CPT/HCPCS: 80053; 81001; 81025; 83690; 85025; 87086; 87088; 96361; 96374; 96375; 99283; J7030; A4216; J2405

== ENCOUNTER 2022-12-18 21:29 | Emergency (ER) | payer MEDICAID, SELFPAY ==
[2022-12-18 21:30] VITALS: BP 117/97; PULSE 84; RESP 16; TEMP 36.3; O2SAT 100; BMI 27.8
--- NOTE | 2022-12-18 22:15 | RAD_ITS ---
INDICATION: chestpain EXAMINATION/TECHNIQUE: X-RAY - XR Chest 1 View COMPARISON: Prior study dated: 10/10/2022 FINDINGS: LINES/DEVICES: None. LUNGS: The lungs are well expanded. No consolidation, edema or effusion. No pneumothorax. MEDIASTINUM AND CARDIOVASCULAR STRUCTURES: Cardiac silhouette not enlarged. Central airways and mediastinal contour are unremarkable. BONES AND SOFT TISSUES: Unremarkable. RAD/Chest 1 View (Portable) IMPRESSION: No acute pulmonary finding. Electronically Signed: Rio Blank MD at 22:33 EDT ,
--- NOTE | 2022-12-18 22:24 | EKG12_ITS ---
Test Reason : CP Blood Pressure : / mmHG Vent. Rate : 070 BPM Atrial Rate : 070 BPM P-R Int : 122 ms QRS Dur : 074 ms QT Int : 386 ms P-R-T Axes : 031 035 -07 degrees QTc Int : 416 ms Normal sinus rhythm Nonspecific T wave abnormality Abnormal ECG Confirmed by SALLY COOL, HUBER ([id number]), story editor JOHANA ESCAMILLA ([id number]) on 12/21/2022 11:24:42 AM Referred By: Confirmed By:HUBER ZAVALA MD
--- NOTE | 2022-12-18 22:40 | EDS_ITS ---
HPI History of Present Illness Chief Complaint: Chest Pain Narrative Narrative: Patient presents with chest pain that started today. No history of trauma. She has no dyspnea with it. She has no pleuritic component. She has no back pain or tearing sensation. No lower extremity edema. No calf pain. Pain is on the left side mostly worse when she moves her arm. [facility] Medical History Anxiety Asthma Depression Diarrhea Endometriosis Gastroparesis GERD (gastroesophageal reflux disease) Migraine OCD (obsessive compulsive disorder) Pelvic pain POTS (postural orthostatic tachycardia syndrome) PTSD (post-traumatic stress disorder) Schizophrenia Tachycardia Upper abdominal pain Home Medications albuterol sulfate 90 mcg/actuation aerosol inhaler 2 puff inhalation PRN PRN Wheezing 06/14/21 [History Last Taken Unknown] epinephrine 0.3 mg/0.3 mL injection, auto-injector 1 mg IM PRN PRN Allergic Re action 06/14/21 [History Last Taken Unknown] aripiprazole 2 mg tablet 5 mg PO QHS 07/31/21 [History Last Taken Unknown] fluoxetine 10 mg capsule 3 cap PO DAILY 10/06/21 [History Last Taken Unknown] diclofenac sodium 75 mg tablet,delayed release 75 mg PO BID PRN pain 01/04/22 [History Last Taken Unknown] medroxyprogesterone 150 mg/mL intramuscular suspension (Depo-Provera) 150 mg IM Q6W 01/04/22 [History Last Taken Unknown] topiramate 100 mg tablet 125 mg PO QHS 01/04/22 [History Last Taken Unknown] prazosin 1 mg capsule 2 mg PO DAILY 03/19/22 [History Last Taken Unknown] trazodone 50 mg tablet 50 mg PO QHS 03/19/22 [History Last Taken Unknown] promethazine 25 mg tablet 25 mg PO TID PRN nausea and vomiting #10 tabs 03/25/22 [Rx Last Taken Unknown] metoclopramide HCl 5 mg tablet 2.5 mg (1/2 x 5 mg) PO QAC #15 tabs 08/08/22 [Rx Last Taken Unknown] ondansetron 4 mg disintegrating tablet 4 mg PO Q8H PRN PRN Nausea #10 tabs 09/07/22 [Rx Last Taken Unknown] hydrocortisone 1 %-pramoxine 1 % rectal foam (Proctofoam HC) 1 applic [place] DAILY 1 week #10 grams 09/20/22 [Rx Last Taken Unknown] lactulose 10 gram/15 mL (15 mL) oral solution 10 g (15 mL) PO DAILY #600 mL 10/17/22 [Rx Last Taken Unknown] cephalexin 500 mg capsule 500 mg PO Q12 #10 CAPSULES 12/02/22 [Rx Last Taken Unknown] pantoprazole 40 mg tablet,delayed release 40 mg PO BID #60 tabs 12/03/22 [Rx Last Taken Unknown] naproxen 500 mg tablet (Naprosyn) 500 mg PO BID PRN pain #20 tabs 12/18/22 [Rx Last Taken Unknown] Allergy/AdvReac Type Severity Reaction Status Date / Time gabapentin Allergy Rash Verified 12/02/22 19:00 sertraline [From Zoloft] Allergy Anaphylaxis Verified 12/02/22 19:00 silicone Allergy Rash Verified 12/02/22 19:00 lactose AdvReac Upset Verified 12/02/22 19:00 Stomach Family History Father Anxiety Depression Asthma Hypertension Mother Asthma Diabetes Anxiety Depression CAD (coronary artery disease) Myocardial infarction, Onset Age: 42 Brother Oleksandr-Danlos syndrome Grandmother Myocardial infarction, Onset Age: 41 Grandfather Myocardial infarction, Onset Age: 38 Surgical History History of colonoscopy History of esophagogastroduodenoscopy (EGD) Hx of laparoscopy Social History household members: none Smoking Status: Current every day smoker tobacco type: e-cigarettes alcohol intake: current alcohol intake frequency: holidays/special occasions only substance use type: does not use caffeine: Yes Type: carbonated beverages, coffee and tea ROS ROS ED ROS Narrative Past medical history: Reviewed Medications: Reviewed Social history: Noncontributory Review of systems: All systems negative except as indicated General: No fever Eyes: No visual changes ENT: No upper airway congestion, normal voice Neck: No neck pain Cardiovascular: Chest pain as in HPI Respiratory: No shortness of breath or cough Gastrointestinal: No abdominal pain, nausea vomiting or diarrhea Genitourinary: No dysuria Musculoskeletal: Denies myalgias no difficulty with ambulation Skin: No rash Neurological: No memory loss, confusion or any focal weakness EXAM Physical Exam Narrative Exam Narrative: Physical exam General: Well nourished, Well developed, No Acute Distress Head: Normocephalic, Atraumatic Eyes: Conjunctiva not pale ENT: Moist mucous membranes Neck: Supple, Nontender, No lymphadenopathy Cardiovascular: Regular rate, Regular rhythm. No murmur. Chest wall: Left-sided chest wall has reproducible chest wall pain. No obvious rash in that region. Respiratory: No distress, CTA bilaterally Abdomen: Soft, Nontender, Nondistended Back: Nontender, Normal Inspection. Negative for: CVA tenderness Extremities: Nontender, No edema Skin: Normal color, No rash Neurological: Alert, Normal Strength, Normal Sensation Psychological: Normal affect Const Vital Signs: 12/18/22 21:30 Temperature 97.4 F L Temperature Source Temporal Pulse Rate 84 Respiratory Rate 16 Blood Pressure 117/97 H Blood Pressure Mean 103 Pulse Ox 100 Oxygen Delivery Method Room Air MDM MDM MDM Narrative Medical decision making narrative: EKG: Sinus rhythm with a rate of 70. Normal [place] and QTc intervals. No ischemic changes. Interpreted by emergency doctor Patient has reproducible chest wall pain she is 22 years old without any cardiac risk factors. This is likely chest wall pain and I will treat with NSAIDs. I do not believe there is signs or symptoms of pulmonary embolism and PE study or D-dimer were not ordered. I do not believe she meets criteria for troponin or any Blood work. She appears well and she will be discharged in stable condition. Radiography Diagnostic Testing: Clinical Impression(s) from Imaging Studies Chest X-Ray 12/18/22 22:15 IMPRESSION: No acute pulmonary finding. Electronically Signed: Rio Blank MD at 22:33 EDT , Chest x-ray read by me as normal Discharge Plan Triage Chief Complaint: Chest Pain ED Provider: Sumanth Garcia Dx/Rx/DC Orders Clinical Impression: Acute chest wall pain, Chest pain Instructions: ED Chest Pain, Uncertain Cause Prescriptions: New naproxen [Naprosyn] 500 mg tablet 500 mg PO BID PRN (Reason: pain) Qty: 20 0RF No Action diclofenac sodium 75 mg tablet,delayed release (DR/EC) 75 mg PO BID PRN (Reason: pain) topiramate 100 mg tablet 125 mg PO QHS medroxyprogesterone [Depo-Provera] 150 mg/mL suspension 150 mg IM Q6W Patient Comments: INJECT 1ML INTRAMUSCULARILY EVERY 12 WEEKS metoclopramide HCl 5 mg tablet 2.5 mg PO QAC Qty: 15 2RF Rx Instructions: administer 30 minutes before meals epinephrine 0.3 mg/0.3 mL auto-injector 1 mg IM PRN PRN (Reason: Allergic Reaction) Patient Comments: INJECT INTO THE MUSCLE NEEDED FOR ANAPHYLAXIS REACTION albuterol sulfate 90 mcg/actuation HFA aerosol inhaler 2 puff INHALATION PRN PRN (Reason: Wheezing) Patient Comments: inhale 2 puffs by mouth and INTO THE LUNGS every 4 hours if neede... (REFER TO PRESCRIPTION NOTES). aripiprazole 2 mg tablet 5 mg PO QHS fluoxetine 10 mg capsule 3 cap PO DAILY trazodone 50 mg tablet 50 mg PO QHS Patient Comments: TAKE 1 OR 2 TABLETS BY MOUTH AT BEDTIME prazosin 1 mg capsule 2 mg PO DAILY Patient Comments: take 1 capsule by mouth twice a day promethazine 25 mg tablet 25 mg PO TID PRN (Reason: nausea and vomiting) Qty: 10 0RF ondansetron 4 mg tablet,disintegrating 4 mg PO Q8H PRN PRN (Reason: Nausea) Qty: 10 0RF Proctofoam HC 1-1 % foam 1 applic [place] DAILY 7 Days Qty: 10 0RF cephalexin 500 mg capsule 500 mg PO Q12 Qty: 10 0RF lactulose 10 gram/15 mL (15 mL) solution 10 g PO DAILY Qty: 600 0RF pantoprazole 40 mg tablet,delayed release (DR/EC) 40 mg PO BID Qty: 60 3RF Primary Care Provider: Monica Patterson Referrals: Monica Patterson, [employer] [Primary Care Provider] - 1-2 Days if not improving Disposition Disposition: Home, Self Care
[2022-12-18 22:47] VITALS: BP 117/97; PULSE 84; RESP 16; O2SAT 100
== END 2022-12-18 23:06 | disposition home or self-care (01) ==
PROVIDERS: Emergency Provider Emergency Medicine; PCP Nurse Practitioner Family; Visit Provider Emergency Medicine
DX: R07.89 Other chest pain (principal); F20.9 Schizophrenia, unspecified; J45.909 Unspecified asthma, uncomplicated; F32.A Depression, unspecified; F42.9 Obsessive-compulsive disorder, unspecified; G43.909 Migraine, unspecified, not intractable, without status migrainosus; Z79.899 Other long term (current) drug therapy; Z79.3 Long term (current) use of hormonal contraceptives; K21.9 Gastro-esophageal reflux disease without esophagitis; F41.9 Anxiety disorder, unspecified; F43.10 Post-traumatic stress disorder, unspecified; F17.290 Nicotine dependence, other tobacco product, uncomplicated
CPT/HCPCS: 71045; 93005; 99282

== ENCOUNTER 2022-12-26 01:05 | Emergency (ER) | payer MEDICAID, SELFPAY ==
[2022-12-26 01:05] VITALS: BP 118/83; PULSE 88; RESP 18; TEMP 37.1; O2SAT 99; BMI 29.0
--- NOTE | 2022-12-26 01:16 | RAD_ITS ---
INDICATION: covid, sob EXAMINATION/TECHNIQUE: X-RAY - XR Chest 1 View COMPARISON: Chest x-ray from 12/18/2022 FINDINGS: LINES/DEVICES: None. LUNGS: Hyperexpanded lungs again noted. No pulmonary edema or focal airspace consolidation. No sizable pleural effusion. No pneumothorax detected. MEDIASTINUM AND CARDIOVASCULAR STRUCTURES: Heart size within normal limits. Mediastinal contours unremarkable. BONES AND SOFT TISSUES: No acute findings. RAD/Chest 1 View (Portable) IMPRESSION: Hyperexpanded lungs, correlate clinically for symptoms of asthma. Electronically Signed: Zeeshan Chacon MD at 1:57 EDT ,
[2022-12-26] MEDS: 0.9% Normal Saline (500mL Bag) 500 ML 1000 ML IV (01:24)
[2022-12-26] MEDS: Ondansetron 4 MG/2 ML Vial IV (01:26)
[2022-12-26] MEDS: Pantoprazole Sodium 40 MG in 0.9% Normal Saline (100mL MB+) 100 ML 330 MG IV (01:41)
--- NOTE | 2022-12-26 01:45 | EDS_ITS ---
HPI History of Present Illness Chief Complaint: GI Bleed Detail of Chief Complaint: COVID-19, vomiting, blood in vomitus Informant: patient Narrative Narrative: Patient presents secondary to blood in her vomitus and feeling dizzy. She star uli feeling ill 2 days ago. Yesterday she tested positive for COVID. She complains of headache and body aches. She has mild cough. She reports epigastric abdominal pain with vomiting. Tonight she noted blood in her vomitus. She has been having blood in her stool recently and was actually scheduled for a colonoscopy this coming Saturday. She had to call to cancel that when she tested positive for COVID today. [facility] Medical History Anxiety Asthma Depression Diarrhea Endometriosis Gastroparesis GERD (gastroesophageal reflux disease) Migraine OCD (obsessive compulsive disorder) Pelvic pain POTS (postural orthostatic tachycardia syndrome) PTSD (post-traumatic stress disorder) Schizophrenia Tachycardia Upper abdominal pain Home Medications albuterol sulfate 90 mcg/actuation aerosol inhaler 2 puff inhalation PRN PRN Wheezing 06/14/21 [History Last Taken Unknown] epinephrine 0.3 mg/0.3 mL injection, auto-injector 1 mg IM PRN PRN Allergic Reaction 06/14/21 [History Last Taken Unknown] aripiprazole 2 mg tablet 5 mg PO QHS 07/31/21 [History Last Taken Unknown] fluoxetine 10 mg capsule 3 cap PO DAILY 10/06/21 [History Last Taken Unknown] diclofenac sodium 75 mg tablet,delayed release 75 mg PO BID PRN pain 01/04/22 [History Last Taken Unknown] medroxyprogesterone 150 mg/mL intramuscular suspension (Depo-Provera) 150 mg IM Q6W 01/04/22 [History Last Taken Unknown] topiramate 100 mg tablet 125 mg PO QHS 01/04/22 [History Last Taken Unknown] prazosin 1 mg capsule 2 mg PO DAILY 03/19/22 [History Last Taken Unknown] trazodone 50 mg tablet 50 mg PO QHS 03/19/22 [History Last Taken Unknown] promethazine 25 mg tablet 25 mg PO TID PRN nausea and vomiting #10 tabs 03/25/22 [Rx Last Taken Unknown] metoclopramide HCl 5 mg tablet 2.5 mg (1/2 x 5 mg) PO QAC #15 tabs 08/08/22 [Rx Last Taken Unknown] ondansetron 4 mg disintegrating tablet 4 mg PO Q8H PRN PRN Nausea #10 tabs 09/07/22 [Rx Last Taken Unknown] hydrocortisone 1 %-pramoxine 1 % rectal foam (Proctofoam HC) 1 applic GA DAILY 1 week #10 grams 09/20/22 [Rx Last Taken Unknown] lactulose 10 gram/15 mL (15 mL) oral solution 10 g (15 mL) PO DAILY #600 mL 10/17/22 [Rx Last Taken Unknown] cephalexin 500 mg capsule 500 mg PO Q12 #10 CAPSULES 12/02/22 [Rx Last Taken Unknown] pantoprazole 40 mg tablet,delayed release 40 mg PO BID #60 tabs 12/03/22 [Rx Last Taken Unknown] naproxen 500 mg tablet (Naprosyn) 500 mg PO BID PRN pain #20 tabs 12/18/22 [Rx Last Taken Unknown] Allergy/AdvReac Type Severity Reaction Status Date / Time gabapentin Allergy Rash Verified 12/26/22 01:10 sertraline [From Zoloft] Allergy Anaphylaxis Verified 12/26/22 01:10 silicone Allergy Rash Verified 12/26/22 01:10 lactose AdvReac Upset Verified 12/26/22 01:10 Stomach Family History Father Anxiety Depression Asthma Hypertension Mother Asthma Diabetes Anxiety Depression CAD (coronary artery disease) Myocardial infarction, Onset Age: 42 Brother Oleksandr-Danlos syndrome Grandmother Myocardial infarction, Onset Age: 41 Grandfather Myocardial infarction, Onset Age: 38 Surgical History History of colonoscopy History of esophagogastroduodenoscopy (EGD) Hx of laparoscopy Social History household members: none Smoking Status: Current every day smoker tobacco type: e-cigarettes alcohol intake: current alcohol intake frequency: holidays/special occasions only substance use type: does not use caffeine: Yes Type: carbonated beverages, coffee and tea ROS ROS ED Constitutional Constitutional ED: Reports fever(s) and subjective; Denies chills Eyes Eyes: Denies change in vision or discharge from eye(s) ENT ENT ED: Reports sore throat and other Details: Mild congestion ; Denies discharge from eye(s) or rhinorrhea Cardiovascular Cardiovascular: Denies chest pain or palpitations Respiratory/Chest Respiratory/Chest: Reports cough; Denies dyspnea Gastrointestinal Gastrointestinal: Reports abdominal pain, nausea and vomiting; Denies diarrhea Genitourinary Genitourinary ED: Denies difficulty urinating or dysuria Musculoskeletal Musculoskeletal: Reports myalgias; Denies back pain or extremity pain Integumentary Denies Abrasions or rash Neurologic Neurologic: Reports headache(s) and weakness Psychiatric Psychiatric: Denies anxiety or depression Allergic/Immunologic Allergic/Immunologic ED: Denies lip swelling or urticaria EXAM Physical Exam Const Vital Signs: 12/26/22 01:05 12/26/22 02:01 Temperature 98.7 F Temperature Source Oral Pulse Rate 88 71 Respiratory Rate 18 18 Blood Pressure 118/83 H 117/54 L Blood Pressure Mean 94 75 Pulse Ox 99 100 Oxygen Delivery Method Room Air Room Air Positive well nourished and well developed General Appearance ED: well developed Eyes EOMs intact bilaterally Chest Wall inspection of chest normal and palpation of chest normal Resp normal respiratory effort and clear to auscultation bilaterally Cardio regular rate and regular rhythm GI GI Narrative: Abdomen soft mild tenderness in the epigastrium. No guarding or rebound. Active bowel sounds are noted. Extremity normal to inspection Neuro oriented x3 and no sensory deficits noted Motor Exam: strength 5/5 throughout Psych mental status grossly normal Skin no rashes or lesions noted MDM MDM MDM Narrative Medical decision making narrative: Patient given IV fluids. Zofran and Protonix ordered. Labwork obtained to evaluate for leukocytosis, anemia, and electrolyte derangement. Chest x-ray obtained to evaluate for acute lung pathology, cardiac size, or mediastinal abnormality. Lab Data Attestation: I reviewed the patient's lab results. Labs: Laboratory Results - last 24 hr 12/26/22 01:25 WBC 4.0 L RBC 5.06 Hgb 12.9 Hct 39.6 MCV 78.3 L MCH 25.5 L MCHC 32.6 RDW Std Deviation 39.2 RDW Coeff of Anoop 13.9 Plt Count 350 MPV 9.4 Immature Gran % (Auto) 0.200 Neut % (Auto) 74.3 H Lymph % (Auto) 13.9 L [place] % (Auto) 10.4 H Eos % (Auto) 0.7 Baso % (Auto) 0.5 Absolute Neuts (auto) 3.0 Absolute Lymphs (auto) 0.56 L Nucleated RBC % 0 Differential Comment SCANNED Diff Path Review May foll Sodium 139 Potassium 3.4 L Chloride 113 H Carbon Dioxide 20.0 L Anion Gap 6 BUN 6 L Creatinine 0.87 Estim Creat Clear Calc 88.33 Est GFR (MDRD) Af Amer 105 Est GFR (MDRD) Non-Af 86 BUN/Creatinine Ratio 6.9 L Glucose 90 Calcium 8.5 Total Bilirubin 0.30 Direct Bilirubin 0.11 AST 55 H ALT 69 H Alkaline Phosphatase 110 Total Protein 7.1 Albumin 3.1 L Globulin 4.0 Lipase 21 Serum , Qual NEGATIVE Radiography Diagnostic Testing: Clinical Impression(s) from Imaging Studies Chest X-Ray 12/26/22 01:16 IMPRESSION: Hyperexpanded lungs, correlate clinically for symptoms of asthma. Electronically Signed: Zeeshan Chacon MD at 1:57 EDT , Treatment and Re-Evaluation :: Portable chest x-ray per my interpretation reveals no focal infiltrate. Radiology interpretation is reviewed and agrees. CBC reveals white count low at 4.0 consistent with her viral COVID infection. Hemoglobin is normal at 12.9 and this is consistent with her prior values. Chemistry studies reveal slightly low potassium at 3.4. Bicarb is 20. Renal function is normal. LFTs reveal slight elevation in AST to 55 and ALT to 69. Alk phos is normal. Lipase is normal at 21. test negative. On repeat evaluation patient still reports some pain, but nausea is significantly improved. She be given a dose of Toradol this time. Abdomen is soft with mild tenderness in the epigastrium. I did discuss her slight elevation in LFTs, however feel this is likely secondary to her viral illness. I do not believe this represents acute liver or gallbladder disease. She has Protonix and Zofran at home. She will continue fluids and I encouraged her to eat small frequent meals to help with her stomach acid. Discharge Plan Triage Chief Complaint: GI Bleed ED Provider: Sridevi Varela Dx/Rx/DC Orders Clinical Impression: COVID-19, Hematemesis, Vomiting Instructions: Coronavirus Disease 2019 (COVID-19): Overview, Coronavirus Disease 2019 (COVID-19): Caring for Yourself or Others, ED Upper GI Bleeding (Stable) Prescriptions: No Action diclofenac sodium 75 mg tablet,delayed release (DR/EC) 75 mg PO BID PRN (Reason: pain) topiramate 100 mg tablet 125 mg PO QHS medroxyprogesterone [Depo-Provera] 150 mg/mL suspension 150 mg IM Q6W Patient Comments: INJECT 1ML INTRAMUSCULARILY EVERY 12 WEEKS metoclopramide HCl 5 mg tablet 2.5 mg PO QAC Qty: 15 2RF Rx Instructions: administer 30 minutes before meals epinephrine 0.3 mg/0.3 mL auto-injector 1 mg IM PRN PRN (Reason: Allergic Reaction) Patient Comments: INJECT INTO THE MUSCLE NEEDED FOR ANAPHYLAXIS REACTION albuterol sulfate 90 mcg/actuation HFA aerosol inhaler 2 puff INHALATION PRN PRN (Reason: Wheezing) Patient Comments: inhale 2 puffs by mouth and INTO THE LUNGS every 4 hours if neede... (REFER TO PRESCRIPTION NOTES). aripiprazole 2 mg tablet 5 mg PO QHS fluoxetine 10 mg capsule 3 cap PO DAILY trazodone 50 mg tablet 50 mg PO QHS Patient Comments: TAKE 1 OR 2 TABLETS BY MOUTH AT BEDTIME prazosin 1 mg capsule 2 mg PO DAILY Patient Comments: take 1 capsule by mouth twice a day promethazine 25 mg tablet 25 mg PO TID PRN (Reason: nausea and vomiting) Qty: 10 0RF ondansetron 4 mg tablet,disintegrating 4 mg PO Q8H PRN PRN (Reason: Nausea) Qty: 10 0RF Proctofoam HC 1-1 % foam 1 applic GA DAILY 7 Days Qty: 10 0RF cephalexin 500 mg capsule 500 mg PO Q12 Qty: 10 0RF naproxen [Naprosyn] 500 mg tablet 500 mg PO BID PRN (Reason: pain) Qty: 20 0RF lactulose 10 gram/15 mL (15 mL) solution 10 g PO DAILY Qty: 600 0RF pantoprazole 40 mg tablet,delayed release (DR/EC) 40 mg PO BID Qty: 60 3RF Primary Care Provider: Monica Patterson Referrals: Monica Patterson, [facility] [Primary Care Provider] - 1-2 Weeks Disposition Disposition: Home, Self Care
[2022-12-26] MEDS: 0.9% Normal Saline (1000mL) 1,000 ML 150 ML IV (01:59)
[2022-12-26 02:00] LABS: Absolute Lymphocyte Count 0.56 X10^3/uL (0.83-4.51); Basophil# 0.02 X10^3/uL; Basophil% 0.5 % (0-1); Eosinophil# 0.03 X10^3/uL; Eosinophils% 0.7 % (0-5); Hematocrit 39.6 % (37-47); Hemoglobin 12.9 g/dL (12.0-15.0); Lymphocyte # 0.56 X10^3/ul (0.83-4.51); Lymphocyte % 13.9 % (19-41); Mean Corp Hgb Conc 32.6 g/dL (32-36); Mean Corpuscular Hgb 25.5 pg (27.0-32.0); Mean Corpuscular Volume 78.3 fL (81-99); Mean Platelet Vol. 9.4 fl (6.2-12.0); Monocyte# 0.42 X10^3/uL; Monocyte% 10.4 % (0-10); NRBC Flagged by Analyzer 0 % (0-5); Neutrophil # 2.99 X10^3/uL (2.7-7.7); Neutrophil % 74.3 % (47-70); POSITIVE DIFFERENTIAL YES; Platelet Count 350 K/mm3 (150-450); RBC Distribution Width CV 13.9 % (11.6-14.6); RBC Distribution Width SD 39.2 fl (35.1-43.9); Red Blood Count 5.06 M/mm3 (4.2-5.4)
[2022-12-26 02:01] VITALS: BP 117/54; PULSE 71; RESP 18; O2SAT 100
[2022-12-26 02:07] LABS: Differential Indicated SCAN CRITERIA MET
[2022-12-26 02:10] LABS: Internal QC Validated? YES +Cl - CLEAR BKGD; Pregnancy, Serum, hCG Quali. NEGATIVE Negative; Record Kit Lot#, Serum Preg. HCG0000667200
[2022-12-26 02:17] LABS: AST(SGOT) 55 U/L (15-37); Alanine Aminotransfer ALT/SGPT 69 U/L (13-56); Albumin, Serum 3.1 g/dL (3.2-5.0); Alkaline Phosphatase 110 U/L (45-117); Anion Gap 6 (5-15); BUN 6 mg/dL (7-18); BUN/Creat Ratio 6.9 RATIO (10-20); Bilirubin, Direct 0.11 mg/dL (0.00-0.30); Calcium,Total 8.5 mg/dL (8.5-10.1); Chloride 113 mmol/L (98-107); Creatinine, Serum 0.87 mg/dL (0.55-1.02); EST Glomerular Filtration Rate 86 mL/min (>60); Est Glom Filt Rate - Afr Amer 105 mL/min (>60); Estimated Creatinine Clearance 88.33 ml/min; Glucose 90 mg/dL (74-106); Lipase 21 U/L (13-75); Potassium 3.4 mmol/L (3.5-5.1); Protein, Total 7.1 g/dL (6.4-8.2); Sodium Level 139 mmol/L (136-145)
[2022-12-26 02:40] LABS: Differential Comment SCANNED
[2022-12-26 03:03] VITALS: BP 118/71; PULSE 66; RESP 18; O2SAT 100
[2022-12-26] MEDS: Ketorolac 30 MG/ML Syringe IV (03:05)
[2022-12-27 10:33] LABS: Pathologist Review Reviewed
== END 2022-12-26 03:29 | disposition home or self-care (01) ==
PROVIDERS: Emergency Provider Emergency Medicine; PCP Nurse Practitioner Family; Visit Provider Emergency Medicine
DX: U07.1 COVID-19 (principal); F20.9 Schizophrenia, unspecified; K92.0 Hematemesis; J45.909 Unspecified asthma, uncomplicated; F32.A Depression, unspecified; Z79.899 Other long term (current) drug therapy; Z79.3 Long term (current) use of hormonal contraceptives; G43.909 Migraine, unspecified, not intractable, without status migrainosus; F42.9 Obsessive-compulsive disorder, unspecified; K21.9 Gastro-esophageal reflux disease without esophagitis; F17.290 Nicotine dependence, other tobacco product, uncomplicated
CPT/HCPCS: 71045; 80048; 80076; 83690; 84703; 85025; A4216; J2405; J7030

== ENCOUNTER 2022-12-26 19:25 | Emergency (ER) | payer MEDICAID, SELFPAY ==
[2022-12-26 19:25] VITALS: BP 110/74; PULSE 95; RESP 16; TEMP 36.6; O2SAT 100; BMI 28.7
[2022-12-26 19:52] VITALS: BP 116/68; PULSE 79; RESP 15; O2SAT 99
--- NOTE | 2022-12-26 19:59 | EX.ED.DYSGE1 ---
HPI History of Present Illness Chief Complaint: Nausea/Vomiting Detail of Chief Complaint: Nausea and vomiting and abdominal pain Informant: patient Narrative Narrative: Patient presents with nausea and vomiting and abdominal pain. Patient states that she was in the emergency department earlier this morning for same. Patient was diagnosed with COVID via home COVID test yesterday. She had COVID symptoms for 2 days. She complains of cough. She went home and vomited 2 more times today. She denies any blood in her vomit currently but initially had blood in her vomit and is why she came in earlier this morning. Patient has history of gastroparesis and gastritis. Patient states she had blood in her stool off and on for the last 5 months and is scheduled to have a colonoscopy coming up. Patient tried her Zofran at home but continued to vomit. She called her primary care physician and was advised to come in and get fluids. Patient states she cannot keep anything down. [facility] Medical History Anxiety Asthma Depression Diarrhea Endometriosis Gastroparesis GERD (gastroesophageal reflux disease) Migraine OCD (obsessive compulsive disorder) Pelvic pain POTS (postural orthostatic tachycardia syndrome) PTSD (post-traumatic stress disorder) Schizophrenia Tachycardia Upper abdominal pain Home Medications albuterol sulfate 90 mcg/actuation aerosol inhaler 2 puff inhalation PRN PRN Wheezing 06/14/21 [History Last Taken Unknown] epinephrine 0.3 mg/0.3 mL injection, auto-injector 1 mg IM PRN PRN Allergic Reaction 06/14/21 [History Last Taken Unknown] aripiprazole 2 mg tablet 5 mg PO QHS 07/31/21 [History Last Taken Unknown] fluoxetine 10 mg capsule 3 cap PO DAILY 10/06/21 [History Last Taken Unknown] diclofenac sodium 75 mg tablet,delayed release 75 mg PO BID PRN pain 01/04/22 [History Last Taken Unknown] medroxyprogesterone 150 mg/mL intramuscular suspension (Depo-Provera) 150 mg IM Q6W 01/04/22 [History Last Taken Unknown] topiramate 100 mg tablet 125 mg PO QHS 01/04/22 [History Last Taken Unknown] prazosin 1 mg capsule 2 mg PO DAILY 03/19/22 [History Last Taken Unknown] trazodone 50 mg tablet 50 mg PO QHS 03/19/22 [History Last Taken Unknown] promethazine 25 mg tablet 25 mg PO TID PRN nausea and vomiting #10 tabs 03/25/22 [Rx Last Taken Unknown] metoclopramide HCl 5 mg tablet 2.5 mg (1/2 x 5 mg) PO QAC #15 tabs 08/08/22 [Rx Last Taken Unknown] ondansetron 4 mg disintegrating tablet 4 mg PO Q8H PRN PRN Nausea #10 tabs 09/07/22 [Rx Last Taken Unknown] hydrocortisone 1 %-pramoxine 1 % rectal foam (Proctofoam HC) 1 applic NM DAILY 1 week #10 grams 09/20/22 [Rx Last Taken Unknown] lactulose 10 gram/15 mL (15 mL) oral solution 10 g (15 mL) PO DAILY #600 mL 10/17/22 [Rx Last Taken Unknown] cephalexin 500 mg capsule 500 mg PO Q12 #10 CAPSULES 12/02/22 [Rx Last Taken Unknown] pantoprazole 40 mg tablet,delayed release 40 mg PO BID #60 tabs 12/03/22 [Rx Last Taken Unknown] naproxen 500 mg tablet (Naprosyn) 500 mg PO BID PRN pain #20 tabs 12/18/22 [Rx Last Taken Unknown] Allergy/AdvReac Type Severity Reaction Status Date / Time gabapentin Allergy Rash Verified 12/26/22 19:28 sertraline [From Zoloft] Allergy Anaphylaxis Verified 12/26/22 19:28 silicone Allergy Rash Verified 12/26/22 19:28 lactose AdvReac Upset Verified 12/26/22 19:28 Stomach Family History Father Anxiety Depression Asthma Hypertension Mother Asthma Diabetes Anxiety Depression CAD (coronary artery disease) Myocardial infarction, Onset Age: 42 Brother Oleksandr-Danlos syndrome Grandmother Myocardial infarction, Onset Age: 41 Grandfather Myocardial infarction, Onset Age: 38 Surgical History History of colonoscopy History of esophagogastroduodenoscopy (EGD) Hx of laparoscopy Social History household members: none Smoking Status: Current every day smoker tobacco type: e-cigarettes alcohol intake: current alcohol intake frequency: holidays/special occasions only substance use type: does not use caffeine: Yes Type: carbonated beverages, coffee and tea ROS ROS ED Review of Systems ROS Unobtainable: other Constitutional Constitutional ED: Reports lethargy; Denies chills, fever(s), sweats or weight loss Eyes Eyes: Denies blurry vision, change in vision or diplopia ENT ENT ED: Denies rhinorrhea or sore throat Cardiovascular Cardiovascular: Reports chest pain and racing heartbeat; Denies orthopnea Respiratory/Chest Respiratory/Chest: Reports cough; Denies dyspnea, dyspnea on exertion, orthopnea or sputum Gastrointestinal Gastrointestinal: Reports abdominal pain, nausea and vomiting; Denies diarrhea Genitourinary Genitourinary ED: Denies dysuria, hematuria or urinary frequency Musculoskeletal Musculoskeletal: Denies arthralgias, back pain, myalgias or neck pain Integumentary Denies abscess, Abrasions or rash Neurologic Neurologic: Denies headache(s) or weakness Psychiatric Psychiatric: Denies anxiety, depression or suicidal thoughts Endocrine Endocrinology: Denies polydipsia, polyphagia or polyuria Hematologic/Lymphatic Hematologic/Lymphatic: Denies easy bleeding, easy bruising or lymphadenopathy Allergic/Immunologic Allergic/Immunologic ED: Denies mouth swelling, tongue swelling or urticaria EXAM Physical Exam Const Vital Signs: 12/26/22 19:25 12/26/22 19:52 Temperature 97.8 F Temperature Source Temporal Pulse Rate 95 79 Respiratory Rate 16 15 Blood Pressure 110/74 116/68 Blood Pressure Mean 86 84 Pulse Ox 100 99 Oxygen Delivery Method Room Air Room Air Positive well nourished and well developed General Appearance ED: well developed and NAD HEENT Reports TM's clear and moist mucous membranes normocephalic and atraumatic; Negative for trauma or tenderness Tympanic Membrane ED: Yes TM's clear Eyes PERRL and EOMs intact bilaterally General Eye ED: Negative for pale conjunctiva or scleral icterus Neck no lymphadenopathy, supple and no JVD General: Negative for tenderness Chest Wall inspection of chest normal and palpation of chest normal Chest: Negative for tenderness Resp normal respiratory effort and clear to auscultation bilaterally Effort and Inspection: Negative for respiratory distress or pain with movement Auscultation: Negative for rhonchi, wheezes or diminished lung sounds Cardio regular rate, regular rhythm, S1 normal heart sound, S2 normal heart sound and no murmurs Peripheral Pulses: pulses 2+ throughout GI normal to inspection, nondistended, normoactive bowel sounds, soft to palpation, non-distended and no masses GI Narrative: Mild diffuse tenderness. There is no rebound, rigidity, or penial signs. No mass palpated. Back/Spine no CVA tenderness and no thoracic nor lumbar tenderness Extremity normal to inspection General Extremety ED: Negative for edema General Extremity: Negative for edema Neuro oriented x3, CN's II-XII intact bilaterally, no sensory deficits noted and gait normal Sensorium / Orientation: awake, alert, oriented to person, oriented to place and oriented to time Motor Exam: strength 5/5 throughout and strength abnormal Psych mental status grossly normal Skin no rashes or lesions noted and no wounds MDM MDM MDM Narrative Medical decision making narrative: Patient presents with vomiting after being diagnosed with COVID. She was seen earlier today in the emergency department for same complaint. She had significant work-up including labs. Patient continues to throw up. IV line established. She was given a liter normal saline fluid bolus and given Reglan 10 mg IV. CBC with differential showed a white count of 5.4 with hemoglobin of 12 and platelet count of 332. Chemistry is unremarkable. She did have an elevation in her LFTs with an AST of 249 and an ALT of 119. Alk phos was normal at 106. Lipase was normal at 19. Patient had a slight elevation earlier today but liver enzymes have increased since her visit this morning. Given the ongoing abdominal pain we obtain a CT scan of the abdomen pelvis which was essentially unremarkable. I suspect the etiology of the increase in liver enzymes may be viral mediated. Patient denies eating any mushrooms that may be poisonous. She did feel improved after treatment. I feel she can be discharged to home. Recommended she follow-up with her primary care physician within next 3 to 5 days to have repeat blood work including liver enzymes. She is advised to return if persistent vomiting, worsening abdominal pain, or condition should worsen anyway. Patient denied using excessive Tylenol. I will send off a hepatitis panel. Lab Data Attestation: I reviewed the patient's lab results. Labs: Laboratory Results - last 24 hr 12/26/22 20:15 WBC 5.4 RBC 4.99 Hgb 12.4 Hct 39.5 MCV 79.2 L MCH 24.8 L MCHC 31.4 L RDW Std Deviation 40.3 RDW Coeff of Anoop 14.1 Plt Count 332 MPV 9.1 Immature Gran % (Auto) 0.200 Neut % (Auto) 64.9 Lymph % (Auto) 23.5 [place] % (Auto) 10.1 H Eos % (Auto) 0.9 Baso % (Auto) 0.4 Absolute Neuts (auto) 3.5 Absolute Lymphs (auto) 1.28 Nucleated RBC % 0 Differential Comment Sodium 139 Potassium 3.8 Chloride 113 H Carbon Dioxide 20.0 L Anion Gap 6 BUN 5 L Creatinine 0.99 Estim Creat Clear Calc 77.62 Est GFR (MDRD) Af Amer 90 Est GFR (MDRD) Non-Af 75 BUN/Creatinine Ratio 5.1 L Glucose 98 Calcium 8.5 Total Bilirubin 0.20 AST 249 H ALT 419 H Alkaline Phosphatase 106 Total Protein 6.8 Albumin 2.9 L Globulin 3.9 Albumin/Globulin Ratio 0.7 L Lipase 19 Radiography Diagnostic Testing: Clinical Impression(s) from Imaging Studies Abdomen/Pelvis CT 12/26/22 20:47 IMPRESSION: undefined Discharge Plan Triage Chief Complaint: Nausea/Vomiting ED Provider: Loree Funes Dx/Rx/DC Orders Clinical Impression: COVID-19, Vomiting, Elevated liver enzymes, Abdominal pain Instructions: Caring for Someone Who Has COVID-19, ED Abdominal Pain Unkn Cause Fem, ED Vomiting (Adult) Prescriptions: No Action diclofenac sodium 75 mg tablet,delayed release (DR/EC) 75 mg PO BID PRN (Reason: pain) topiramate 100 mg tablet 125 mg PO QHS medroxyprogesterone [Depo-Provera] 150 mg/mL suspension 150 mg IM Q6W Patient Comments: INJECT 1ML INTRAMUSCULARILY EVERY 12 WEEKS metoclopramide HCl 5 mg tablet 2.5 mg PO QAC Qty: 15 2RF Rx Instructions: administer 30 minutes before meals epinephrine 0.3 mg/0.3 mL auto-injector 1 mg IM PRN PRN (Reason: Allergic Reaction) Patient Comments: INJECT INTO THE MUSCLE NEEDED FOR ANAPHYLAXIS REACTION albuterol sulfate 90 mcg/actuation HFA aerosol inhaler 2 puff INHALATION PRN PRN (Reason: Wheezing) Patient Comments: inhale 2 puffs by mouth and INTO THE LUNGS every 4 hours if neede... (REFER TO PRESCRIPTION NOTES). aripiprazole 2 mg tablet 5 mg PO QHS fluoxetine 10 mg capsule 3 cap PO DAILY trazodone 50 mg tablet 50 mg PO QHS Patient Comments: TAKE 1 OR 2 TABLETS BY MOUTH AT BEDTIME prazosin 1 mg capsule 2 mg PO DAILY Patient Comments: take 1 capsule by mouth twice a day promethazine 25 mg tablet 25 mg PO TID PRN (Reason: nausea and vomiting) Qty: 10 0RF ondansetron 4 mg tablet,disintegrating 4 mg PO Q8H PRN PRN (Reason: Nausea) Qty: 10 0RF Proctofoam HC 1-1 % foam 1 applic NM DAILY 7 Days Qty: 10 0RF cephalexin 500 mg capsule 500 mg PO Q12 Qty: 10 0RF naproxen [Naprosyn] 500 mg tablet 500 mg PO BID PRN (Reason: pain) Qty: 20 0RF lactulose 10 gram/15 mL (15 mL) solution 10 g PO DAILY Qty: 600 0RF pantoprazole 40 mg tablet,delayed release (DR/EC) 40 mg PO BID Qty: 60 3RF Primary Care Provider: Monica Patterson Referrals: Monica Patterson, [facility] [Primary Care Provider] - 3-5 Days Activity Restrictions/Additional Instructions: Follow-up with your family doctor in 3 to 5 days to have repeat liver enzymes. Return if worsening pain, persistent vomiting, fever, or condition should worsen anyway Disposition Disposition: Home, Self Care Discharge Date/Time: 12/26/22 22:39
[2022-12-26] MEDS: 0.9% Normal Saline (1000mL) 1,000 ML 1000 ML IV (20:00)
[2022-12-26 20:23] LABS: Absolute Lymphocyte Count 1.28 X10^3/uL (0.83-4.51); Absolute Neutrophil Count 3.5 X10^3/uL (2.0-7.7); Basophil# 0.02 X10^3/uL; Basophil% 0.4 % (0-1); Eosinophil# 0.05 X10^3/uL; Eosinophils% 0.9 % (0-5); Hematocrit 39.5 % (37-47); Hemoglobin 12.4 g/dL (12.0-15.0); Lymphocyte # 1.28 X10^3/ul (0.83-4.51); Lymphocyte % 23.5 % (19-41); Mean Corp Hgb Conc 31.4 g/dL (32-36); Mean Corpuscular Hgb 24.8 pg (27.0-32.0); Mean Corpuscular Volume 79.2 fL (81-99); Mean Platelet Vol. 9.1 fl (6.2-12.0); Monocyte# 0.55 X10^3/uL; Monocyte% 10.1 % (0-10); NRBC Flagged by Analyzer 0 % (0-5); Neutrophil # 3.53 X10^3/uL (2.7-7.7); Neutrophil % 64.9 % (47-70); POSITIVE MORPHOLOGY YES; Platelet Count 332 K/mm3 (150-450); RBC Distribution Width CV 14.1 % (11.6-14.6); RBC Distribution Width SD 40.3 fl (35.1-43.9); Red Blood Count 4.99 M/mm3 (4.2-5.4); White Blood Count 5.4 K/mm3 (4.4-11.0)
[2022-12-26 20:29] LABS: Differential Indicated SCAN CRITERIA MET
[2022-12-26] MEDS: Pantoprazole Sodium 40 MG in 0.9% Normal Saline (100mL MB+) 100 ML 330 MG IV (20:37)
[2022-12-26] MEDS: Metoclopramide 10 MG/2 ML Vial IV (20:37)
[2022-12-26 20:41] LABS: ALB/GLOB Ratio 0.7 RATIO (0.9-2.4); AST(SGOT) 249 U/L (15-37); Alanine Aminotransfer ALT/SGPT 419 U/L (13-56); Albumin, Serum 2.9 g/dL (3.2-5.0); Alkaline Phosphatase 106 U/L (45-117); Anion Gap 6 (5-15); BUN 5 mg/dL (7-18); BUN/Creat Ratio 5.1 RATIO (10-20); Calcium,Total 8.5 mg/dL (8.5-10.1); Chloride 113 mmol/L (98-107); Creatinine, Serum 0.99 mg/dL (0.55-1.02); EST Glomerular Filtration Rate 75 mL/min (>60); Est Glom Filt Rate - Afr Amer 90 mL/min (>60); Estimated Creatinine Clearance 77.62 ml/min; Globulin 3.9 g/dL (2.2-4.2); Glucose 98 mg/dL (74-106); Lipase 19 U/L (13-75); Potassium 3.8 mmol/L (3.5-5.1); Protein, Total 6.8 g/dL (6.4-8.2); Sodium Level 139 mmol/L (136-145)
--- NOTE | 2022-12-26 20:47 | CT_ITS ---
EXAM: CT abdomen and pelvis with contrast. HISTORY: abdominal pain TECHNIQUE: CT Abdomen And Pelvis W/ Contrast Injection. A radiation dose optimization technique was used for this scan. COMPARISON: CT abdomen pelvis July 02, 2022. LIMITATIONS: Motion artifact. LOWER CHEST: Normal. LIVER: Focal fat deposition near the falciform ligament, similar to the prior exam. GALLBLADDER: Normal. BILE DUCTS: Normal. PANCREAS: Normal. SPLEEN: Normal. ADRENAL GLANDS: Normal. KIDNEYS/URETERS/BLADDER: Normal. AORTA: Normal caliber. BOWEL/MESENTERY: No evidence of colitis. No small bowel obstruction. Fluid is within nondistended loops of distal small bowel raising the possibility of mild enteritis. No bowel wall thickening. APPENDIX: Normal. PERITONEUM: Trace free pelvic fluid.. REPRODUCTIVE ORGANS: Normal. BONES/SOFT TISSUES: No acute fracture. OTHER: None. CONCLUSION: Possible mild enteritis. Electronically Signed: Ruddy Retana MD at 21:29 EDT , CT/Abdomen/Pelvis W IV Cont ONLY IMPRESSION: undefined
[2022-12-28 04:07] LABS: HEPATITIS B SURFACE AG Negative (Negative); Hep C Antibodies Non Reactive (Non Reactive); Hepatitis A IgM Antibody Negative (Negative); Hepatitis B Core AB IgM Negative (Negative)
== END 2022-12-26 22:39 | disposition home or self-care (01) ==
PROVIDERS: Emergency Provider Emergency Medicine; PCP Nurse Practitioner Family; Visit Provider Emergency Medicine
DX: U07.1 COVID-19 (principal); F20.9 Schizophrenia, unspecified; R10.9 Unspecified abdominal pain; R74.8 Abnormal levels of other serum enzymes; R11.2 Nausea with vomiting, unspecified; J45.909 Unspecified asthma, uncomplicated; F32.A Depression, unspecified; Z79.899 Other long term (current) drug therapy; Z79.3 Long term (current) use of hormonal contraceptives; G43.909 Migraine, unspecified, not intractable, without status migrainosus; K21.9 Gastro-esophageal reflux disease without esophagitis; F17.290 Nicotine dependence, other tobacco product, uncomplicated
CPT/HCPCS: 71045; 74177; 80048; 80053; 80074; 80076; 83690; 84703; 85025; 96361; 96365; 96366; 96375; 99283; 99285; J7030; Q9967; A4216; J2405

== ENCOUNTER 2022-12-31 23:45 | Emergency (ER) | payer MEDICAID, SELFPAY ==
[2022-12-31 23:46] VITALS: BP 131/87; PULSE 88; RESP 18; TEMP 36.7; O2SAT 100; BMI 28.1
--- NOTE | 2023-01-01 00:01 | EDS_ITS ---
HPI History of Present Illness Chief Complaint: Abd Pain Informant: patient Onset/Context/Timing Onset: Weeks Context: Gradual Onset Timing: Waxes and wanes Current Severity: Moderate Maximum Severity: Severe Narrative Narrative: With continued right upper quadrant abdominal pain and vomiting. Patient was seen in the ER last week with right upper quadrant pain and some blood in her vomitus. She has been having some blood in her stool for several months and was scheduled for a colonoscopy, however tested positive for COVID and had to delay that test. Her lab work last week did show elevation in her ALT and AST. Hepatitis panel was sent and ultimately returned negative. CT scan revealed normal appearance to the gallbladder. Patient states that her pain has only gotten worse since last week. She continues to have vomiting and states she cannot keep anything down. She states when she does try to eat she has severe pain across her upper abdomen and cannot stand up straight. She reports having a fever up to 101 2 days ago. She states she called Dr. Andreina winkler and he advised to come to the emergency room. [facility] Medical History Anxiety Asthma Depression Diarrhea Endometriosis Gastroparesis GERD (gastroesophageal reflux disease) Migraine OCD (obsessive compulsive disorder) Pelvic pain POTS (postural orthostatic tachycardia syndrome) PTSD (post-traumatic stress disorder) Schizophrenia Tachycardia Upper abdominal pain Home Medications albuterol sulfate 90 mcg/actuation aerosol inhaler 2 puff inhalation PRN PRN Wheezing 06/14/21 [History Last Taken Unknown] epinephrine 0.3 mg/0.3 mL injection, auto-injector 1 mg IM PRN PRN Allergic Reaction 06/14/21 [History Last Taken Unknown] aripiprazole 2 mg tablet 5 mg PO QHS 07/31/21 [History Last Taken Unknown] fluoxetine 10 mg capsule 40 mg PO DAILY 10/06/21 [History Last Taken Unknown] diclofenac sodium 75 mg tablet,delayed release 75 mg PO BID PRN pain 01/04/22 [History Last Taken Unknown] medroxyprogesterone 150 mg/mL intramuscular suspension (Depo-Provera) 150 mg IM .q10w 01/04/22 [History Last Taken Unknown] topiramate 100 mg tablet 125 mg PO QHS 01/04/22 [History Last Taken Unknown] prazosin 1 mg capsule 2 mg PO DAILY 03/19/22 [History Last Taken Unknown] trazodone 50 mg tablet 50 mg PO QHS 03/19/22 [History Last Taken Unknown] promethazine 25 mg tablet 25 mg PO TID PRN nausea and vomiting #10 tabs 03/25/22 [Rx Last Taken Unknown] metoclopramide HCl 5 mg tablet 2.5 mg (1/2 x 5 mg) PO QAC #15 tabs 08/08/22 [Rx Last Taken Unknown] ondansetron 4 mg disintegrating tablet 4 mg PO Q8H PRN PRN Nausea #10 tabs 09/07/22 [Rx Last Taken Unknown] hydrocortisone 1 %-pramoxine 1 % rectal foam (Proctofoam HC) 1 applic [place] DAILY 1 week #10 grams 09/20/22 [Rx Last Taken Unknown] pantoprazole 40 mg tablet,delayed release 40 mg PO BID #60 tabs 12/03/22 [Rx Last Taken Unknown] naproxen 500 mg tablet (Naprosyn) 500 mg PO BID PRN pain #20 tabs 12/18/22 [Rx Last Taken Unknown] Allergy/AdvReac Type Severity Reaction Status Date / Time gabapentin Allergy Rash Verified 12/31/22 23:48 sertraline [From Zoloft] Allergy Anaphylaxis Verified 12/31/22 23:48 silicone Allergy Rash Verified 12/31/22 23:48 lactose AdvReac Upset Verified 12/31/22 23:48 Stomach Family History Father Anxiety Depression Asthma Hypertension Mother Asthma Diabetes Anxiety Depression CAD (coronary artery disease) Myocardial infarction, Onset Age: 42 Brother Oleksandr-Danlos syndrome Grandmother Myocardial infarction, Onset Age: 41 Grandfather Myocardial infarction, Onset Age: 38 Surgical History History of colonoscopy History of esophagogastroduodenoscopy (EGD) Hx of laparoscopy Social History household members: none Smoking Status: Current every day smoker tobacco type: e-cigarettes alcohol intake: current alcohol intake frequency: holidays/special occasions only substance use type: does not use caffeine: Yes Type: carbonated beverages, coffee and tea ROS ROS ED Constitutional Constitutional ED: Reports fever(s); Denies chills Eyes Eyes: Denies change in vision or discharge from eye(s) ENT ENT ED: Denies discharge from eye(s), rhinorrhea or sore throat Cardiovascular Cardiovascular: Denies chest pain or palpitations Respiratory/Chest Respiratory/Chest: Denies cough or dyspnea Gastrointestinal Gastrointestinal: Reports abdominal pain, nausea and vomiting; Denies diarrhea Genitourinary Genitourinary ED: Denies dysuria Musculoskeletal Musculoskeletal: Denies back pain or extremity pain Integumentary Denies Abrasions or rash Neurologic Neurologic: Denies headache(s) or weakness Psychiatric Psychiatric: Denies anxiety or depression Endocrine Endocrinology: Reports polydipsia and polyuria Allergic/Immunologic Allergic/Immunologic ED: Denies lip swelling or urticaria EXAM Physical Exam Narrative Exam Narrative: Patient sitting upright in bed no acute distress. Nontoxic-appearing. Const Vital Signs: 12/31/22 23:46 01/01/23 01:46 01/01/23 04:21 Temperature 98.1 F Temperature Source Temporal Pulse Rate 88 80 Respiratory Rate 18 16 18 Blood Pressure 131/87 H Blood Pressure Mean 101 Pulse Ox 100 99 Oxygen Delivery Method Room Air Room Air Positive well nourished and well developed General Appearance ED: well developed HEENT Reports normocephalic and head/scalp atraumatic Eyes PERRL and EOMs intact bilaterally Neck supple Chest Wall inspection of chest normal and palpation of chest normal Resp normal respiratory effort and clear to auscultation bilaterally Cardio regular rate and regular rhythm GI GI Narrative: Tenderness in the epigastrium and right upper quadrant. No guarding or rebound. Hypoactive but present bowel sounds are noted. Palpation: soft Extremity normal to inspection Neuro oriented x3 and no sensory deficits noted Sensorium / Orientation: alert Motor Exam: strength 5/5 throughout Psych mental status grossly normal Skin no rashes or lesions noted MDM MDM MDM Narrative Medical decision making narrative: Patient's ED visits from last week are reviewed. Given morphine and Zofran for pain and nausea along with a dose of Protonix. Labwork obtained to evaluate for leukocytosis, anemia, and electrolyte derangement. IV fluids given for hydration. History & Record Review Discussion w/independent historian: Patient Additional record(s) reviewed:: Prior ED visit and Prior labs Lab Data Attestation: I reviewed the patient's lab results. Labs: Laboratory Results - last 24 hr 01/01/23 00:15 WBC 4.2 L RBC 4.85 Hgb 11.9 L Hct 37.3 MCV 76.9 L MCH 24.5 L MCHC 31.9 L RDW Std Deviation 38.4 RDW Coeff of Anoop 13.7 Plt Count 370 MPV 9.1 Immature Gran % (Auto) 0.200 Neut % (Auto) 40.1 L Lymph % (Auto) 45.1 H [place] % (Auto) 13.4 H Eos % (Auto) 1.0 Baso % (Auto) 0.2 Absolute Neuts (auto) 1.7 L Absolute Lymphs (auto) 1.88 Nucleated RBC % 0 Sodium 138 Potassium 4.0 Chloride 109 H Carbon Dioxide 22.0 Anion Gap 7 BUN 9 Creatinine 0.94 Estim Creat Clear Calc 81.75 Est GFR (MDRD) Af Amer 96 Est GFR (MDRD) Non-Af 79 BUN/Creatinine Ratio 9.6 L Glucose 122 H Calcium 8.4 L Total Bilirubin 0.30 Direct Bilirubin < 0.05 AST 71 H ALT 192 H Alkaline Phosphatase 92 Total Protein 7.3 Albumin 3.1 L Globulin 4.2 Lipase 23 Serum , Qual NEGATIVE Urine Color Yellow Urine Clarity Clear Urine pH 8.0 Ur Specific [place] 1.015 Urine Protein Negative Urine Glucose (UA) Normal Urine Ketones Negative Urine Occult Blood 10 H Urine Nitrite Negative Urine Bilirubin Negative Urine Urobilinogen 4 H Ur Leukocyte Esterase 100 H Urine RBC 0 SEEN Urine WBC 0-5 SEEN Ur Squamous Epith Cells 0 SEEN Urine Bacteria RARE Urine Mucus 0 SEEN Treatment and Re-Evaluation :: CBC was white count of 4.2 with a hemoglobin 11.9. Differential is largely unremarkable. Chemistry studies reveal normal renal function. Chloride is slightly high at 109. LFTs significant for an AST of 71 and ALT of 192. This is improving when compared to her most recent visit. Lipase is normal at 23. test is negative. Urinalysis reveals no evidence of infection. No ketones are noted. Patient was given a repeat dose of morphine as well as Phenergan for nausea and a GI cocktail. At this time we will hold the patient for a right upper quadrant ultrasound in the morning to evaluate her liver and gallbladder. Patient is signed out to oncoming physician for US results and repeat evaluation. Discharge Plan Triage Chief Complaint: Abd Pain ED Provider: Sridevi Varela Dx/Rx/DC Orders Clinical Impression: Abdominal pain, Vomiting Instructions: ED Abdominal Pain Unkn Cause Fem, ED Vomiting (Adult) Prescriptions: No Action diclofenac sodium 75 mg tablet,delayed release (DR/EC) 75 mg PO BID PRN (Reason: pain) topiramate 100 mg tablet 125 mg PO QHS medroxyprogesterone [Depo-Provera] 150 mg/mL suspension 150 mg IM .q10w Patient Comments: INJECT 1ML INTRAMUSCULARILY EVERY 12 WEEKS metoclopramide HCl 5 mg tablet 2.5 mg PO QAC Qty: 15 2RF Rx Instructions: administer 30 minutes before meals epinephrine 0.3 mg/0.3 mL auto-injector 1 mg IM PRN PRN (Reason: Allergic Reaction) Patient Comments: INJECT INTO THE MUSCLE NEEDED FOR ANAPHYLAXIS REACTION albuterol sulfate 90 mcg/actuation HFA aerosol inhaler 2 puff INHALATION PRN PRN (Reason: Wheezing) Patient Comments: inhale 2 puffs by mouth and INTO THE LUNGS every 4 hours if neede... (REFER TO PRESCRIPTION NOTES). aripiprazole 2 mg tablet 5 mg PO QHS fluoxetine 10 mg capsule 40 mg PO DAILY trazodone 50 mg tablet 50 mg PO QHS Patient Comments: TAKE 1 OR 2 TABLETS BY MOUTH AT BEDTIME prazosin 1 mg capsule 2 mg PO DAILY Patient Comments: take 1 capsule by mouth twice a day promethazine 25 mg tablet 25 mg PO TID PRN (Reason: nausea and vomiting) Qty: 10 0RF ondansetron 4 mg tablet,disintegrating 4 mg PO Q8H PRN PRN (Reason: Nausea) Qty: 10 0RF Proctofoam HC 1-1 % foam 1 applic [place] DAILY 7 Days Qty: 10 0RF naproxen [Naprosyn] 500 mg tablet 500 mg PO BID PRN (Reason: pain) Qty: 20 0RF pantoprazole 40 mg tablet,delayed release (DR/EC) 40 mg PO BID Qty: 60 3RF Primary Care Provider: Monica Patterson Referrals: Monica Patterson, [employer] C[employer]TING MACHINE OPERATOR-C [Primary Care Provider] -
[2023-01-01] MEDS: Ondansetron 4 MG/2 ML Vial IV (00:13)
[2023-01-01] MEDS: 0.9% Normal Saline (1000mL) 1,000 ML 1000 ML IV (00:13)
[2023-01-01] MEDS: Morphine 4 MG/ML Syringe IV ×2 (00:14→01:47)
[2023-01-01 00:19] LABS: Mucous, Urine 0 SEEN /hpf (<or=2+); Red Blood Cells-Urine 0 SEEN /hpf (0-5); Squamous Epithelial Cells - UA 0 SEEN /hpf (5-10)
[2023-01-01 00:20] LABS: Color, Urine Yellow (Yellow); Glucose, Dipstick Normal (Normal); Ketone-Dipstick Negative (Negative); Leukocyte Esterase-Dipstick 100 /ul (Negative); Nitrite-Dipstick Negative (Negative); Occult Blood-Urine 10 /ul (Negative); Protein-Dipstick Negative (Negative); Specific Gravity, Urine 1.015 (1.002-1.030); Urine Bilirubin Dipstick Negative (Negative); Urine Clarity Clear (Clear); Urine Urobilinogen 4 mg/dl (Normal)
[2023-01-01 00:22] LABS: Absolute Lymphocyte Count 1.88 X10^3/uL (0.83-4.51); Absolute Neutrophil Count 1.7 X10^3/uL (2.0-7.7); Basophil# 0.01 X10^3/uL; Basophil% 0.2 % (0-1); Eosinophil# 0.04 X10^3/uL; Hematocrit 37.3 % (37-47); Hemoglobin 11.9 g/dL (12.0-15.0); Lymphocyte # 1.88 X10^3/ul (0.83-4.51); Lymphocyte % 45.1 % (19-41); Mean Corp Hgb Conc 31.9 g/dL (32-36); Mean Corpuscular Hgb 24.5 pg (27.0-32.0); Mean Corpuscular Volume 76.9 fL (81-99); Mean Platelet Vol. 9.1 fl (6.2-12.0); Monocyte# 0.56 X10^3/uL; Monocyte% 13.4 % (0-10); NRBC Flagged by Analyzer 0 % (0-5); Neutrophil # 1.67 X10^3/uL (2.7-7.7); Neutrophil % 40.1 % (47-70); POSITIVE MORPHOLOGY YES; Platelet Count 370 K/mm3 (150-450); RBC Distribution Width CV 13.7 % (11.6-14.6); RBC Distribution Width SD 38.4 fl (35.1-43.9); Red Blood Count 4.85 M/mm3 (4.2-5.4); White Blood Count 4.2 K/mm3 (4.4-11.0)
[2023-01-01 00:33] LABS: Bacteria RARE /hpf (None Seen); White Blood Cells 0-5 SEEN /hpf (0-5)
[2023-01-01 00:35] LABS: Internal QC Validated? YES +Cl - CLEAR BKGD; Pregnancy, Serum, hCG Quali. NEGATIVE Negative
[2023-01-01 00:41] LABS: AST(SGOT) 71 U/L (15-37); Alanine Aminotransfer ALT/SGPT 192 U/L (13-56); Albumin, Serum 3.1 g/dL (3.2-5.0); Alkaline Phosphatase 92 U/L (45-117); Anion Gap 7 (5-15); BUN 9 mg/dL (7-18); BUN/Creat Ratio 9.6 RATIO (10-20); Bilirubin, Direct < 0.05 mg/dL (0.00-0.30); Calcium,Total 8.4 mg/dL (8.5-10.1); Chloride 109 mmol/L (98-107); Creatinine, Serum 0.94 mg/dL (0.55-1.02); EST Glomerular Filtration Rate 79 mL/min (>60); Est Glom Filt Rate - Afr Amer 96 mL/min (>60); Estimated Creatinine Clearance 81.75 ml/min; Globulin 4.2 g/dL (2.2-4.2); Glucose 122 mg/dL (74-106); Lipase 23 U/L (13-75); Protein, Total 7.3 g/dL (6.4-8.2); Sodium Level 138 mmol/L (136-145)
[2023-01-01] MEDS: Pantoprazole Sodium 40 MG in 0.9% Normal Saline (100mL MB+) 100 ML 330 MG IV (00:44)
[2023-01-01 00:53] LABS: Differential Indicated SCAN CRITERIA MET
--- NOTE | 2023-01-01 01:25 | US_ITS ---
INDICATION: RUQ pain EXAMINATION: Ultrasound US Abdomen Limited (quadrant) TECHNIQUE: Bernstein scale and color doppler imaging was performed of the right upper quadrant. COMPARISON: None. FINDINGS: LIVER: Normal echotexture. No evidence of a mass. No intrahepatic duct dilation. GALLBLADDER: Mildly distended. No evidence of a stone or sludge. Normal wall thickness. No pericholecystic fluid. Negative sonographic Hu''s sign. COMMON BILE DUCT: Normal measuring 3 mm in diameter. PANCREAS: Not visualized due to overlying bowel gas. RIGHT KIDNEY: Unremarkable. FREE FLUID: No free fluid in the right upper quadrant. US/Abdomen Limited IMPRESSION: Unremarkable right upper quadrant ultrasound with no evidence of cholelithiasis or cholecystitis. Electronically Signed: Anival Shelby DO at 7:47 EDT ,
[2023-01-01 01:46] VITALS: PULSE 80; RESP 16; O2SAT 99
[2023-01-01] MEDS: Mag Hydrox/Al Hydrox/Simeth 30 ML UDC PO (01:46)
[2023-01-01] MEDS: 0.9% Normal Saline (1000mL) 1,000 ML 150 ML IV (01:50)
[2023-01-01] MEDS: proMETHazine 25 MG/ML Syringe 12.5 MG IM (02:15)
[2023-01-01 04:21] VITALS: RESP 18
[2023-01-01 08:00] VITALS: BP 124/78; PULSE 64; RESP 14; TEMP 36.9; O2SAT 99
== END 2023-01-01 08:06 | disposition home or self-care (01) ==
PROVIDERS: Emergency Provider Emergency Medicine; PCP Nurse Practitioner Family; Visit Provider Emergency Medicine
DX: F20.9 Schizophrenia, unspecified (principal); R11.2 Nausea with vomiting, unspecified; J45.909 Unspecified asthma, uncomplicated; Z79.899 Other long term (current) drug therapy; F32.A Depression, unspecified; F42.9 Obsessive-compulsive disorder, unspecified; Z79.3 Long term (current) use of hormonal contraceptives; K21.9 Gastro-esophageal reflux disease without esophagitis; F17.290 Nicotine dependence, other tobacco product, uncomplicated; R10.11 Right upper quadrant pain
CPT/HCPCS: 76705; 80048; 80076; 81001; 83690; 84703; 85025; 96361; 96365; 96372; 96375; 96376; 99283; J7030; A4216; J2405

== ENCOUNTER 2023-01-10 22:14 | Emergency (ER) | payer MEDICAID, SELFPAY ==
[2023-01-10 22:15] VITALS: BP 139/81; PULSE 100; RESP 16; TEMP 36.8; O2SAT 100; BMI 27.8
--- NOTE | 2023-01-10 22:45 | RAD_ITS ---
EXAM: XR ABDOMEN, 2 VIEWS AND XR CHEST, 1 VIEW CLINICAL INDICATION: pain TECHNIQUE: Frontal view of the chest, frontal view of the abdomen/pelvis and upright or decubitus view of the abdomen. COMPARISON: Single view chest 12/26/2022 FINDINGS: CHEST: LUNGS AND PLEURAL SPACES: Unremarkable. No consolidation or edema. No pneumothorax. No effusion. HEART: Unremarkable. Cardiac silhouette not enlarged. MEDIASTINUM: Central airways and mediastinal contour are unremarkable. ABDOMEN: INTRAPERITONEAL SPACE: No free air. GASTROINTESTINAL TRACT: Unremarkable. Non-obstructive. No bowel or stomach distention. ORGANS: Unremarkable as visualized. No organomegaly. No abnormal calcifications. TUBES, LINES AND DEVICES: None. BONES/JOINTS: No acute findings. SOFT TISSUES: No acute findings. RAD/Acute Abdomen Inc Chest IMPRESSION: Negative chest and abdominal series. Electronically Signed: Chuy Braga MD at 23:12 EDT ,
[2023-01-10] MEDS: Ondansetron 4 MG/2 ML Vial IV (22:59)
[2023-01-10] MEDS: Morphine 4 MG/ML Syringe IV (22:59)
[2023-01-10 23:11] LABS: Absolute Lymphocyte Count 1.92 X10^3/uL (0.83-4.51); Absolute Neutrophil Count 4.1 X10^3/uL (2.0-7.7); Basophil# 0.03 X10^3/uL; Basophil% 0.4 % (0-1); Eosinophils% 1.5 % (0-5); Hematocrit 39.9 % (37-47); Hemoglobin 12.8 g/dL (12.0-15.0); Lymphocyte # 1.92 X10^3/ul (0.83-4.51); Lymphocyte % 28.5 % (19-41); Mean Corp Hgb Conc 32.1 g/dL (32-36); Mean Corpuscular Volume 77.8 fL (81-99); Mean Platelet Vol. 8.6 fl (6.2-12.0); Monocyte# 0.63 X10^3/uL; Monocyte% 9.3 % (0-10); NRBC Flagged by Analyzer 0 % (0-5); Neutrophil # 4.05 X10^3/uL (2.7-7.7); Neutrophil % 60.2 % (47-70); Platelet Count 564 K/mm3 (150-450); RBC Distribution Width CV 13.8 % (11.6-14.6); RBC Distribution Width SD 38.8 fl (35.1-43.9); Red Blood Count 5.13 M/mm3 (4.2-5.4); White Blood Count 6.7 K/mm3 (4.4-11.0)
--- NOTE | 2023-01-10 23:18 | EDS_ITS ---
HPI History of Present Illness Chief Complaint: Abd Pain Informant: patient Narrative Narrative: Patient is a 22-year-old female with past medical history of bipolar disorder and POTS who states she has had chronic abdominal pain for the past 2 to 3 months. She states she underwent an EGD secondary to this which was reportedly normal 1 to 2 months ago and that she had a colonoscopy just yesterday. She states that the pain is increased today from her baseline and secondary to that she comes in for evaluation. She states there is no nausea vomiting diarrhea dysuria fevers or chills. She denies any concern for . However because the pain was increased from her baseline she presents for evaluation. [facility] Medical History Anxiety Asthma Depression Diarrhea Endometriosis Gastroparesis GERD (gastroesophageal reflux disease) Migraine OCD (obsessive compulsive disorder) Pelvic pain POTS (postural orthostatic tachycardia syndrome) PTSD (post-traumatic stress disorder) Schizophrenia Tachycardia Upper abdominal pain Home Medications albuterol sulfate 90 mcg/actuation aerosol inhaler 2 puff inhalation PRN PRN Wheezing 06/14/21 [History Last Taken Unknown] epinephrine 0.3 mg/0.3 mL injection, auto-injector 1 mg IM PRN PRN Allergic Reaction 06/14/21 [History Last Taken Unknown] aripiprazole 2 mg tablet 5 mg PO QHS 07/31/21 [History Last Taken Unknown] fluoxetine 10 mg capsule 40 mg PO DAILY 10/06/21 [History Last Taken Unknown] diclofenac sodium 75 mg tablet,delayed release 75 mg PO BID PRN pain 01/04/22 [History Last Taken Unknown] medroxyprogesterone 150 mg/mL intramuscular suspension (Depo-Provera) 150 mg IM .q10w 01/04/22 [History Last Taken Unknown] topiramate 100 mg tablet 125 mg PO QHS 01/04/22 [History Last Taken Unknown] prazosin 1 mg capsule 2 mg PO DAILY 03/19/22 [History Last Taken Unknown] trazodone 50 mg tablet 50 mg PO QHS 03/19/22 [History Last Taken Unknown] promethazine 25 mg tablet 25 mg PO TID PRN nausea and vomiting #10 tabs 03/25/22 [Rx Last Taken Unknown] metoclopramide HCl 5 mg tablet 2.5 mg (1/2 x 5 mg) PO QAC #15 tabs 08/08/22 [Rx Last Taken Unknown] ondansetron 4 mg disintegrating tablet 4 mg PO Q8H PRN PRN Nausea #10 tabs 09/07/22 [Rx Last Taken Unknown] hydrocortisone 1 %-pramoxine 1 % rectal foam (Proctofoam HC) 1 applic [place] DAILY 1 week #10 grams 09/20/22 [Rx Last Taken Unknown] pantoprazole 40 mg tablet,delayed release 40 mg PO BID #60 tabs 12/03/22 [Rx Last Taken Unknown] naproxen 500 mg tablet (Naprosyn) 500 mg PO BID PRN pain #20 tabs 12/18/22 [Rx Last Taken Unknown] Allergy/AdvReac Type Severity Reaction Status Date / Time gabapentin Allergy Rash Verified 01/10/23 22:17 sertraline [From Zoloft] Allergy Anaphylaxis Verified 01/10/23 22:17 silicone Allergy Rash Verified 01/10/23 22:17 lactose AdvReac Upset Verified 01/10/23 22:17 Stomach Family History Father Anxiety Depression Asthma Hypertension Mother Asthma Diabetes Anxiety Depression CAD (coronary artery disease) Myocardial infarction, Onset Age: 42 Brother Oleksandr-Danlos syndrome Grandmother Myocardial infarction, Onset Age: 41 Grandfather Myocardial infarction, Onset Age: 38 Surgical History History of colonoscopy History of esophagogastroduodenoscopy (EGD) Hx of laparoscopy Social History household members: none Smoking Status: Current every day smoker tobacco type: e-cigarettes alcohol intake: current alcohol intake frequency: holidays/special occasions only substance use type: does not use caffeine: Yes Type: carbonated beverages, coffee and tea ROS ROS ED Constitutional Constitutional ED: Denies chills or fever(s) ENT ENT ED: Denies sore throat Cardiovascular Cardiovascular: Denies chest pain Respiratory/Chest Respiratory/Chest: Denies cough or dyspnea Gastrointestinal Gastrointestinal: Reports abdominal pain; Denies diarrhea, nausea or vomiting Genitourinary Genitourinary ED: Denies dysuria or hematuria Musculoskeletal Musculoskeletal: Denies back pain or myalgias Integumentary Denies rash Neurologic Neurologic: Denies headache(s) Hematologic/Lymphatic Hematologic/Lymphatic: Denies easy bleeding or easy bruising EXAM Physical Exam Const Vital Signs: 01/10/23 22:15 Temperature 98.3 F Temperature Source Temporal Pulse Rate 100 Respiratory Rate 16 Blood Pressure 139/81 H Blood Pressure Mean 100 Pulse Ox 100 Oxygen Delivery Method Room Air Positive well nourished and well developed General Appearance ED: well developed HEENT HEENT Narrative: Normocephalic atraumatic Eyes PERRL and EOMs intact bilaterally General Eye ED: Negative for scleral icterus Neck supple Resp normal respiratory effort and clear to auscultation bilaterally Cardio regular rate and regular rhythm Rate: other Other Details: Radial and carotid pulses are equal and symmetric GI non-distended GI Narrative: Abdomen is soft and nondistended with normal active bowel sounds. There is mild pain to palpation in the mid gastric and right upper quadrant without voluntary guarding or rigidity. Negative Hu sign. No pulsatile mass or fluid wave. Auscultation: normoactive bowel sounds Palpation: soft Back/Spine no CVA tenderness Extremity normal to inspection Extremity Narrative: No asymmetric edema no pitting edema negative Homans' sign bilaterally Neuro oriented x3, CN's II-XII intact bilaterally and no sensory deficits noted Sensorium / Orientation: alert Motor Exam: strength 5/5 throughout Psych mental status grossly normal Skin no rashes or lesions noted General Skin Exam: Negative for jaundice MDM MDM MDM Narrative Medical decision making narrative: Patient presented to the ER hypertensive otherwise afebrile with stable vitals. She reported history of chronic abdominal pain and is already had EGD and colonoscopy to further assess it. Patient in fact had a colonoscopy yesterday and there is concerned she can have potential perforation and free air causing her increased pain. Based on location biliary colic and pancreatitis are also in the differential. Secondary to this basic blood work was obtained and shows a normal lipase going against her pancreas and her liver enzymes have improved from previous value going against a biliary obstruction. X-ray revealed no signs of perforation or obstruction either. Therefore this time with overall work-up being negative and the fact the patient has chronic abdominal discomfort I do not believe there is need for further evaluation in the ER and she is otherwise safe for discharge. History & Record Review Discussion w/independent historian: Patient Lab Data Attestation: I reviewed the patient's lab results. Labs: Laboratory Results - last 24 hr 01/10/23 22:55 WBC 6.7 RBC 5.13 Hgb 12.8 Hct 39.9 MCV 77.8 L MCH 25.0 L MCHC 32.1 RDW Std Deviation 38.8 RDW Coeff of Anoop 13.8 Plt Count 564 H MPV 8.6 Immature Gran % (Auto) 0.100 Neut % (Auto) 60.2 Lymph % (Auto) 28.5 [place] % (Auto) 9.3 Eos % (Auto) 1.5 Baso % (Auto) 0.4 Absolute Neuts (auto) 4.1 Absolute Lymphs (auto) 1.92 Nucleated RBC % 0 Sodium 139 Potassium 3.4 L Chloride 112 H Carbon Dioxide 23.0 Anion Gap 4 L BUN 4 L Creatinine 0.94 Estim Creat Clear Calc 81.75 Est GFR (MDRD) Af Amer 96 Est GFR (MDRD) Non-Af 79 BUN/Creatinine Ratio 4.3 L Glucose 102 Calcium 8.9 Total Bilirubin 0.30 Direct Bilirubin 0.11 AST 14 L ALT 44 Alkaline Phosphatase 93 Total Protein 7.6 Albumin 3.6 Globulin 4.0 Lipase 28 Radiography Diagnostic Testing: Clinical Impression(s) from Imaging Studies Acute Abdomen Series 01/10/23 22:45 IMPRESSION: Negative chest and abdominal series. Electronically Signed: Chuy Braga MD at 23:12 EDT Reading Location ID and State: [address] [place] [address] Tel , Service support , Acute abdominal series with 1 view chest as interpreted by the emergency medicine physician reveals a nonobstructive nonspecific bowel gas pattern without perforation or free air and chest x-ray component reveals no acute infiltrate pneumothorax or pleural effusion. Discharge Plan Triage Chief Complaint: Abd Pain ED Provider: Bryant Reyes Dx/Rx/DC Orders Clinical Impression: Nonspecific abdominal pain Instructions: Abdominal Pain Prescriptions: No Action diclofenac sodium 75 mg tablet,delayed release (DR/EC) 75 mg PO BID PRN (Reason: pain) topiramate 100 mg tablet 125 mg PO QHS medroxyprogesterone [Depo-Provera] 150 mg/mL suspension 150 mg IM .q10w Patient Comments: INJECT 1ML INTRAMUSCULARILY EVERY 12 WEEKS metoclopramide HCl 5 mg tablet 2.5 mg PO QAC Qty: 15 2RF Rx Instructions: administer 30 minutes before meals epinephrine 0.3 mg/0.3 mL auto-injector 1 mg IM PRN PRN (Reason: Allergic Reaction) Patient Comments: INJECT INTO THE MUSCLE NEEDED FOR ANAPHYLAXIS REACTION albuterol sulfate 90 mcg/actuation HFA aerosol inhaler 2 puff INHALATION PRN PRN (Reason: Wheezing) Patient Comments: inhale 2 puffs by mouth and INTO THE LUNGS every 4 hours if neede... (REFER TO PRESCRIPTION NOTES). aripiprazole 2 mg tablet 5 mg PO QHS fluoxetine 10 mg capsule 40 mg PO DAILY trazodone 50 mg tablet 50 mg PO QHS Patient Comments: TAKE 1 OR 2 TABLETS BY MOUTH AT BEDTIME prazosin 1 mg capsule 2 mg PO DAILY Patient Comments: take 1 capsule by mouth twice a day promethazine 25 mg tablet 25 mg PO TID PRN (Reason: nausea and vomiting) Qty: 10 0RF ondansetron 4 mg tablet,disintegrating 4 mg PO Q8H PRN PRN (Reason: Nausea) Qty: 10 0RF Proctofoam HC 1-1 % foam 1 applic IA DAILY 7 Days Qty: 10 0RF naproxen [Naprosyn] 500 mg tablet 500 mg PO BID PRN (Reason: pain) Qty: 20 0RF pantoprazole 40 mg tablet,delayed release (DR/EC) 40 mg PO BID Qty: 60 3RF Primary Care Provider: Monica Patterson Referrals: Monica Patterson, COMPOSITION ROOFER-C [Primary Care Provider] - Disposition Disposition: Home, Self Care
[2023-01-10 23:40] LABS: AST(SGOT) 14 U/L (15-37); Alanine Aminotransfer ALT/SGPT 44 U/L (13-56); Albumin, Serum 3.6 g/dL (3.2-5.0); Alkaline Phosphatase 93 U/L (45-117); Anion Gap 4 (5-15); BUN 4 mg/dL (7-18); BUN/Creat Ratio 4.3 RATIO (10-20); Bilirubin, Direct 0.11 mg/dL (0.00-0.30); Calcium,Total 8.9 mg/dL (8.5-10.1); Chloride 112 mmol/L (98-107); Creatinine, Serum 0.94 mg/dL (0.55-1.02); EST Glomerular Filtration Rate 79 mL/min (>60); Est Glom Filt Rate - Afr Amer 96 mL/min (>60); Estimated Creatinine Clearance 81.75 ml/min; Glucose 102 mg/dL (74-106); Lipase 28 U/L (13-75); Potassium 3.4 mmol/L (3.5-5.1); Protein, Total 7.6 g/dL (6.4-8.2); Sodium Level 139 mmol/L (136-145)
[2023-01-10 23:49] VITALS: PULSE 65; RESP 16; O2SAT 99
[2023-01-10] MEDS: fentaNYL 100 MCG/2 ML Ampul 25 MCG IV (23:49)
== END 2023-01-10 23:59 | disposition home or self-care (01) ==
PROVIDERS: Emergency Provider Emergency Medicine; PCP Nurse Practitioner Family; Visit Provider Emergency Medicine
DX: R10.9 Unspecified abdominal pain (principal); F20.9 Schizophrenia, unspecified; J45.909 Unspecified asthma, uncomplicated; Z79.899 Other long term (current) drug therapy; F32.A Depression, unspecified; Z79.3 Long term (current) use of hormonal contraceptives; G43.909 Migraine, unspecified, not intractable, without status migrainosus; K21.9 Gastro-esophageal reflux disease without esophagitis; F42.9 Obsessive-compulsive disorder, unspecified; F17.290 Nicotine dependence, other tobacco product, uncomplicated
CPT/HCPCS: 74022; 80048; 80076; 83690; 85025; 96374; 96375; 99283; A4216; J2405

== ENCOUNTER 2023-01-14 19:31 | Emergency (ER) | payer MEDICAID, SELFPAY ==
[2023-01-14 19:33] VITALS: BP 156/92; PULSE 113; RESP 18; TEMP 36.6; O2SAT 100; BMI 27.1
--- NOTE | 2023-01-14 19:45 | EKG12_ITS ---
Test Reason : CP Blood Pressure : / mmHG Vent. Rate : 093 BPM Atrial Rate : 093 BPM P-R Int : 130 ms QRS Dur : 070 ms QT Int : 346 ms P-R-T Axes : 060 037 -02 degrees QTc Int : 430 ms Normal sinus rhythm Nonspecific ST and T wave abnormality Abnormal ECG No previous ECGs available Confirmed by SALLY COOL, HUBER ([id number]), mapping editor JOHANA ESCAMILLA ([id number]) on 01/28/2023 1:54:49 PM Referred By: Confirmed By:HUBER ZAVALA MD
[2023-01-14] MEDS: 0.9% Normal Saline (1000mL) 1,000 ML 1000 ML IV (22:06)
--- NOTE | 2023-01-14 22:08 | RAD_ITS ---
STUDY: X-RAY CHEST REASON FOR EXAM: Female, 22 years old. Chest pain TECHNIQUE: Frontal and lateral views of the chest. COMPARISON: 01/10/2023. FINDINGS: The lungs are clear and expanded. There is no demonstrated pleural abnormality. Normal size heart. Normal mediastinum and dennis. Normal visualized pulmonary arteries. Normal visualized aortic arch and descending thoracic aorta. Normal visualized thoracic spine. Normal visualized ribs, clavicles, and shoulders. There is no demonstrated abnormality of the visualized soft tissue structures of the upper abdomen. RAD/Chest PA and Lateral IMPRESSION: Normal x-ray examination of the chest. Electronically Signed: Tj Kauffman MD at 22:47 EDT ,
[2023-01-14 22:30] LABS: Internal QC Validated? YES +Cl - CLEAR BKGD; Pregnancy, Serum, hCG Quali. NEGATIVE Negative
[2023-01-14 22:31] LABS: Absolute Lymphocyte Count 2.29 X10^3/uL (0.83-4.51); Basophil# 0.03 X10^3/uL; Basophil% 0.4 % (0-1); Eosinophils% 1.4 % (0-5); Hematocrit 40.2 % (37-47); Hemoglobin 12.9 g/dL (12.0-15.0); Lymphocyte # 2.29 X10^3/ul (0.83-4.51); Lymphocyte % 32.9 % (19-41); Mean Corp Hgb Conc 32.1 g/dL (32-36); Mean Corpuscular Hgb 24.5 pg (27.0-32.0); Mean Corpuscular Volume 76.4 fL (81-99); Mean Platelet Vol. 8.8 fl (6.2-12.0); Monocyte# 0.55 X10^3/uL; Monocyte% 7.9 % (0-10); NRBC Flagged by Analyzer 0 % (0-5); Neutrophil # 3.97 X10^3/uL (2.7-7.7); Neutrophil % 57.3 % (47-70); Platelet Count 477 K/mm3 (150-450); RBC Distribution Width SD 38.5 fl (35.1-43.9); Red Blood Count 5.26 M/mm3 (4.2-5.4)
[2023-01-14 22:37] LABS: Anion Gap 6 (5-15); BUN 8 mg/dL (7-18); BUN/Creat Ratio 9.1 RATIO (10-20); Calcium,Total 8.7 mg/dL (8.5-10.1); Chloride 110 mmol/L (98-107); Creatinine, Serum 0.88 mg/dL (0.55-1.02); EST Glomerular Filtration Rate 86 mL/min (>60); Est Glom Filt Rate - Afr Amer 104 mL/min (>60); Estimated Creatinine Clearance 87.32 ml/min; Glucose 94 mg/dL (74-106); Potassium 3.1 mmol/L (3.5-5.1); Sodium Level 139 mmol/L (136-145); Troponin-I HS 3 pg/mL (3.0-54.0)
--- NOTE | 2023-01-14 22:59 | EX.ED.DYSGE1 ---
HPI History of Present Illness Chief Complaint: General Illness Informant: patient Onset/Context/Timing Onset: Today Context: Gradual Onset Timing: Continuous Quality: Spinning, blurring Location: Head Worsened by: Head movement Relieved by: Nothing Narrative Narrative: Patient presents with elevated blood pressures and dizziness that began today. Patient states her blood pressure at home was 157/111. Patient states she felt like the room was spinning. Patient states it is worse with movement. Patient states she had noted some blurred vision with this. Patient admits to some subjective chills. Patient also admits to some chest pain and palpitations. Patient admits to some shortness of breath but denies any cough. Patient admits to a mild headache. Patient denies any hearing changes. [facility] Medical History Anxiety Asthma Depression Diarrhea Endometriosis Gastroparesis GERD (gastroesophageal reflux disease) Migraine OCD (obsessive compulsive disorder) Pelvic pain POTS (postural orthostatic tachycardia syndrome) PTSD (post-traumatic stress disorder) Schizophrenia Tachycardia Upper abdominal pain Home Medications albuterol sulfate 90 mcg/actuation aerosol inhaler 2 puff inhalation PRN PRN Wheezing 06/14/21 [History Last Taken Unknown] epinephrine 0.3 mg/0.3 mL injection, auto-injector 1 mg IM PRN PRN Allergic Reaction 06/14/21 [History Last Taken Unknown] aripiprazole 2 mg tablet 5 mg PO QHS 07/31/21 [History Last Taken Unknown] fluoxetine 10 mg capsule 40 mg PO DAILY 10/06/21 [History Last Taken Unknown] diclofenac sodium 75 mg tablet,delayed release 75 mg PO BID PRN pain 01/04/22 [History Last Taken Unknown] medroxyprogesterone 150 mg/mL intramuscular suspension (Depo-Provera) 150 mg IM .q10w 01/04/22 [History Last Taken Unknown] topiramate 100 mg tablet 125 mg PO QHS 01/04/22 [History Last Taken Unknown] prazosin 1 mg capsule 2 mg PO DAILY 03/19/22 [History Last Taken Unknown] trazodone 50 mg tablet 50 mg PO QHS 03/19/22 [History Last Taken Unknown] metoclopramide HCl 5 mg tablet 2.5 mg (1/2 x 5 mg) PO QAC #15 tabs 08/08/22 [Rx Last Taken Unknown] ondansetron 4 mg disintegrating tablet 4 mg PO Q8H PRN PRN Nausea #10 tabs 09/07/22 [Rx Last Taken Unknown] pantoprazole 40 mg tablet,delayed release 40 mg PO BID #60 tabs 12/03/22 [Rx Last Taken Unknown] naproxen 500 mg tablet (Naprosyn) 500 mg PO BID PRN pain #20 tabs 12/18/22 [Rx Last Taken Unknown] Allergy/AdvReac Type Severity Reaction Status Date / Time gabapentin Allergy Rash Verified 01/14/23 19:31 glycerin [From Nasal-Ease] Allergy Swelling Verified 01/14/23 19:32 methylcellulose Allergy Swelling Verified 01/14/23 19:32 [From Nasal-Ease] sertraline [From Zoloft] Allergy Anaphylaxis Verified 01/14/23 19:31 silicone Allergy Rash Verified 01/14/23 19:31 sodium chloride Allergy Swelling Verified 01/14/23 19:32 [From Nasal-Ease] zinc [From Nasal-Ease] Allergy Swelling Verified 01/14/23 19:32 lactose AdvReac Upset Verified 01/14/23 19:31 Stomach Family History Father Anxiety Depression Asthma Hypertension Mother Asthma Diabetes Anxiety Depression CAD (coronary artery disease) Myocardial infarction, Onset Age: 42 Brother Oleksandr-Danlos syndrome Grandmother Myocardial infarction, Onset Age: 41 Grandfather Myocardial infarction, Onset Age: 38 Surgical History History of colonoscopy History of esophagogastroduodenoscopy (EGD) Hx of laparoscopy Social History household members: none Smoking Status: Current every day smoker tobacco type: e-cigarettes alcohol intake: current alcohol intake frequency: holidays/special occasions only substance use type: does not use caffeine: Yes Type: carbonated beverages, coffee and tea ROS ROS ED Constitutional Constitutional ED: Reports chills and subjective Eyes Eyes: Reports blurry vision; Denies diplopia ENT ENT ED: Reports rhinorrhea; Denies sore throat Cardiovascular Cardiovascular: Reports chest pain and palpitations Respiratory/Chest Respiratory/Chest: Reports dyspnea; Denies cough Gastrointestinal Gastrointestinal: Reports abdominal pain and nausea Genitourinary Genitourinary ED: Reports urinary frequency; Denies dysuria Musculoskeletal Musculoskeletal: Reports back pain and neck pain Integumentary Reports rash; Denies abscess Neurologic Neurologic: Reports headache(s); Denies weakness Allergic/Immunologic Allergic/Immunologic ED: Denies mouth swelling or urticaria EXAM Physical Exam Const Vital Signs: 01/14/23 19:33 01/14/23 22:07 Temperature 97.8 F Temperature Source Temporal Pulse Rate 113 H Respiratory Rate 18 Respiratory Effort Normal Non-Labored Respiratory Pattern Normal Blood Pressure 156/92 H Blood Pressure Mean 113 Pulse Ox 100 Positive well nourished and well developed General Appearance ED: well developed and NAD HEENT Reports moist mucous membranes Neck supple and no JVD Resp normal respiratory effort and clear to auscultation bilaterally Cardio regular rate, regular rhythm and no murmurs GI normal to inspection, nondistended, normoactive bowel sounds and non-tender Palpation: soft Extremity normal to inspection General Extremety ED: Negative for edema or tenderness General Extremity: Negative for edema Neuro oriented x3, CN's II-XII intact bilaterally and no sensory deficits noted Sensorium / Orientation: alert Motor Exam: strength 5/5 throughout Psych mental status grossly normal MDM MDM MDM Narrative Medical decision making narrative: Differential diagnosis includes hypertension, vertigo, cardiac dysrhythmia, cardiac ischemia, pneumonia, electrolyte abnormality, and anxiety. EKG will be obtained to assess for cardiac dysrhythmia and cardiac ischemia. Chest x-ray will be obtained to assess for pneumonia. CBC will be obtained to assess for leukocytosis or anemia. Basic metabolic profile will be obtained to assess for electrolyte abnormality and renal function. High-sensitivity troponin will be obtained to assess for cardiac ischemia. Serum hCG will be obtained to assess for . Lab Data Attestation: I reviewed the patient's lab results. Lab results narrative: CBC was reviewed and was within normal limits. Basic metabolic profile was reviewed. Potassium was low at 3.1. High-sensitivity troponin was reviewed and was normal at 3. Serum hCG was reviewed and was negative. Labs: Laboratory Results - last 24 hr 01/14/23 22:05 WBC 7.0 RBC 5.26 Hgb 12.9 Hct 40.2 MCV 76.4 L MCH 24.5 L MCHC 32.1 RDW Std Deviation 38.5 RDW Coeff of Anoop 14.0 Plt Count 477 H MPV 8.8 Immature Gran % (Auto) 0.100 Neut % (Auto) 57.3 Lymph % (Auto) 32.9 [place] % (Auto) 7.9 Eos % (Auto) 1.4 Baso % (Auto) 0.4 Absolute Neuts (auto) 4.0 Absolute Lymphs (auto) 2.29 Nucleated RBC % 0 Sodium 139 Potassium 3.1 L Chloride 110 H Carbon Dioxide 23.0 Anion Gap 6 BUN 8 Creatinine 0.88 Estim Creat Clear Calc 87.32 Est GFR (MDRD) Af Amer 104 Est GFR (MDRD) Non-Af 86 BUN/Creatinine Ratio 9.1 L Glucose 94 Calcium 8.7 Troponin I High Sens 3 Serum , Qual NEGATIVE Radiography Chest X-Ray - ED: 2 View, Read by ED Physician, Read by Radiologist and No Acute Disease Diagnostic Testing: Clinical Impression(s) from Imaging Studies Chest X-Ray 01/14/23 22:08 IMPRESSION: Normal x-ray examination of the chest. Electronically Signed: Tj Kauffman MD at 22:47 EDT , [place] and lateral chest x-ray was obtained. There are 2 views. On my independent interpretation, lung dela cruz are clear. There is normal cardiac silhouette. Bony thorax is normal. There is no acute process noted. Radiologist also interpreted the x-ray and agrees. EKG Initial EKG: Attestation: I personally reviewed and interpreted this EKG as follows: Interpretation: Sinus Rhythm (93) and Non-Specific ST Changes Comments: EKG was obtained. On my independent interpretation, it showed a normal sinus rhythm with a rate of 3. [place] interval, QRS interval, and QTc intervals were all normal. [place] was normal. There are nonspecific ST-T wave changes. Prior EKG tracings: available for review Prior: Unchanged (12/18/2022) Treatment and Re-Evaluation :: Patient was given IV fluids. Patient was given a dose of oral potassium here. Patient was advised of her findings. Patient was instructed to follow-up with her primary care physician in 3 to 5 days for reevaluation. Patient understood and was agreeable with the plan. All questions were answered. Discharge Plan Triage Chief Complaint: General Illness ED Provider: Alexei Chakraborty Dx/Rx/DC Orders Clinical Impression: Dizziness, Hypokalemia Instructions: ED Dizziness, Uncertain Cause, ED Hypokalemia Prescriptions: No Action diclofenac sodium 75 mg tablet,delayed release (DR/EC) 75 mg PO BID PRN (Reason: pain) topiramate 100 mg tablet 125 mg PO QHS medroxyprogesterone [Depo-Provera] 150 mg/mL suspension 150 mg IM .q10w Patient Comments: INJECT 1ML INTRAMUSCULARILY EVERY 12 WEEKS metoclopramide HCl 5 mg tablet 2.5 mg PO QAC Qty: 15 2RF Rx Instructions: administer 30 minutes before meals epinephrine 0.3 mg/0.3 mL auto-injector 1 mg IM PRN PRN (Reason: Allergic Reaction) Patient Comments: INJECT INTO THE MUSCLE NEEDED FOR ANAPHYLAXIS REACTION albuterol sulfate 90 mcg/actuation HFA aerosol inhaler 2 puff INHALATION PRN PRN (Reason: Wheezing) Patient Comments: inhale 2 puffs by mouth and INTO THE LUNGS every 4 hours if neede... (REFER TO PRESCRIPTION NOTES). aripiprazole 2 mg tablet 5 mg PO QHS fluoxetine 10 mg capsule 40 mg PO DAILY trazodone 50 mg tablet 50 mg PO QHS Patient Comments: TAKE 1 OR 2 TABLETS BY MOUTH AT BEDTIME prazosin 1 mg capsule 2 mg PO DAILY Patient Comments: take 1 capsule by mouth twice a day ondansetron 4 mg tablet,disintegrating 4 mg PO Q8H PRN PRN (Reason: Nausea) Qty: 10 0RF naproxen [Naprosyn] 500 mg tablet 500 mg PO BID PRN (Reason: pain) Qty: 20 0RF pantoprazole 40 mg tablet,delayed release (DR/EC) 40 mg PO BID Qty: 60 3RF Primary Care Provider: Monica Patterson Referrals: Monica Patterson, [employer]PRESENTATIVE[facility] [Primary Care Provider] - 3-5 Days Disposition Disposition: Home, Self Care
[2023-01-14 23:00] VITALS: BP 142/88; PULSE 91; RESP 16; O2SAT 98
[2023-01-14] MEDS: Potassium Chloride Oral Soln 20 MEQ/15 ML UDC 40 MEQ PO (23:10)
[2023-01-14 23:54] VITALS: PULSE 85; RESP 16; O2SAT 99
== END 2023-01-15 00:02 | disposition home or self-care (01) ==
PROVIDERS: Emergency Provider Emergency Medicine; PCP Nurse Practitioner Family; Visit Provider Emergency Medicine
DX: R42 Dizziness and giddiness (principal); F20.9 Schizophrenia, unspecified; E87.6 Hypokalemia; R51.9 Headache, unspecified; F17.210 Nicotine dependence, cigarettes, uncomplicated; Z82.5 Family history of asthma and other chronic lower respiratory diseases; R06.02 Shortness of breath; J45.909 Unspecified asthma, uncomplicated; F42.9 Obsessive-compulsive disorder, unspecified
CPT/HCPCS: 71046; 80048; 84484; 84703; 85025; 93005; 99284; A4216

== ENCOUNTER → 2023-01-16 | Outpatient (CLI) | payer MEDICAID, SELFPAY ==
[2023-01-16 19:15] LABS: Anion Gap 7 (5-15); BUN 7 mg/dL (7-18); BUN/Creat Ratio 7.5 RATIO (10-20); Calcium,Total 9.3 mg/dL (8.5-10.1); Chloride 112 mmol/L (98-107); Creatinine, Serum 0.93 mg/dL (0.55-1.02); EST Glomerular Filtration Rate 80 mL/min (>60); Est Glom Filt Rate - Afr Amer 97 mL/min (>60); Free T3 2.4 pg/mL (2.18-3.98); Glucose 90 mg/dL (74-106); Sodium Level 137 mmol/L (136-145); T4 Free Direct 1.08 ng/dL (0.76-1.46); Thyroid Stim Hormone (TSH) 2.12 uIU/mL (0.358-3.74)
[2023-01-29 11:54] LABS: Aldosterone, Serum 3.2 ng/dL (0.0-30.0); Dopamine, Pl <30 pg/mL (0-48); Epinephrine, Pl <15 pg/mL (0-62); Norepinephrine, Pl 210 pg/mL (0-874); Renin, Plasma 1.897 ng/mL/hr (0.167-5.380)
== END | disposition home or self-care (01) ==
LOC: LAB 15:40
PROVIDERS: PCP Nurse Practitioner Family; Referring Provider Nurse Practitioner Family; Visit Provider Nurse Practitioner Family
DX: R55 Syncope and collapse (principal); R00.2 Palpitations; R00.0 Tachycardia, unspecified; E87.6 Hypokalemia; E03.9 Hypothyroidism, unspecified; I10 Essential (primary) hypertension
CPT/HCPCS: 36415; 80048; 82088; 82384; 84244; 84439; 84443; 84481

== ENCOUNTER 2023-01-19 18:05 | Emergency (ER) | payer MEDICAID, SELFPAY ==
[2023-01-19 18:07] VITALS: BP 134/91; PULSE 104; RESP 16; TEMP 36.2; O2SAT 100; BMI 28.5
--- NOTE | 2023-01-19 18:29 | EKG12_ITS ---
Test Reason : DYSRHYTHMIA Blood Pressure : / mmHG Vent. Rate : 107 BPM Atrial Rate : 107 BPM P-R Int : 168 ms QRS Dur : 076 ms QT Int : 300 ms P-R-T Axes : 054 039 -40 degrees QTc Int : 400 ms Sinus tachycardia Nonspecific T wave abnormality Abnormal ECG Confirmed by SALLY COOL, HUBER ([id number]), rewrite editor JOHANA ESCAMILLA ([id number]) on 01/22/2023 7:44:15 AM Referred By: Confirmed By:HUBER ZAVALA MD
--- NOTE | 2023-01-19 18:34 | EX.ED.DYSGE1 ---
HPI <TRINO Garcia - Last Filed: 01/19/23 20:03> History of Present Illness Chief Complaint: Nausea/Vomiting Narrative Narrative: 22-year-old female with past medical history of GERD/gastritis, gastroparesis presents with 1 episode of hematemesis that occurred today. She states the vomit was normal colored with a large area of bright red blood. No clots. She was also having chest pain since then. Over the last few weeks she has had epigastric pain but this was the first episode of recent vomiting. She has long history of abdominal issues and has seen with Dr. Hdz and Dr. David. She is on PPI, Reglan, and sucralfate. She vapes delta 9 (THC products) and has 1 alcoholic drink every other day. She is alternating constipation/diarrhea and denies blood in her stool. PFSH <TRINO Garcia - Last Filed: 01/19/23 20:03> [facility] Medical History Anxiety Asthma Depression Diarrhea Endometriosis Gastroparesis GERD (gastroesophageal reflux disease) Migraine OCD (obsessive compulsive disorder) Pelvic pain POTS (postural orthostatic tachycardia syndrome) PTSD (post-traumatic stress disorder) Schizophrenia Tachycardia Upper abdominal pain Home Medications albuterol sulfate 90 mcg/actuation aerosol inhaler 2 puff inhalation PRN PRN Wheezing 06/14/21 [History Last Taken Unknown] epinephrine 0.3 mg/0.3 mL injection, auto-injector 1 mg IM PRN PRN Allergic Reaction 06/14/21 [History Last Taken Unknown] diclofenac sodium 75 mg tablet,delayed release 75 mg PO BID PRN pain 01/04/22 [History Last Taken Unknown] medroxyprogesterone 150 mg/mL intramuscular suspension (Depo-Provera) 150 mg IM .q10w 01/04/22 [History Last Taken Unknown] prazosin 1 mg capsule 2 mg PO DAILY 03/19/22 [History Last Taken Unknown] trazodone 50 mg tablet 50 mg PO QHS 03/19/22 [History Last Taken Unknown] metoclopramide HCl 5 mg tablet 2.5 mg (1/2 x 5 mg) PO QAC #15 tabs 08/08/22 [Rx Last Taken Unknown] ondansetron 4 mg disintegrating tablet 4 mg PO Q8H PRN PRN Nausea #10 tabs 09/07/22 [Rx Last Taken Unknown] pantoprazole 40 mg tablet,delayed release 40 mg PO BID #60 tabs 12/03/22 [Rx Last Taken Unknown] naproxen 500 mg tablet (Naprosyn) 500 mg PO BID PRN pain #20 tabs 12/18/22 [Rx Last Taken Unknown] aripiprazole 5 mg tablet 5 mg PO DAILY 01/16/23 [History Last Taken Unknown] fluoxetine 40 mg capsule 40 mg PO DAILY 01/16/23 [History Last Taken Unknown] spironolactone 25 mg tablet 25 mg PO DAILY #30 tabs 01/16/23 [Rx Last Taken Unknown] topiramate 100 mg tablet 100 mg PO QHS 01/16/23 [History Last Taken Unknown] topiramate 25 mg tablet 25 mg PO DAILY 01/16/23 [History Last Taken Unknown] Allergy/AdvReac Type Severity Reaction Status Date / Time gabapentin Allergy Rash Verified 01/19/23 18:09 glycerin [From Nasal-Ease] Allergy Swelling Verified 01/19/23 18:09 methylcellulose Allergy Swelling Verified 01/19/23 18:09 [From Nasal-Ease] sertraline [From Zoloft] Allergy Anaphylaxis Verified 01/19/23 18:09 silicone Allergy Rash Verified 01/19/23 18:09 sodium chloride Allergy Swelling Verified 01/19/23 18:09 [From Nasal-Ease] zinc [From Nasal-Ease] Allergy Swelling Verified 01/19/23 18:09 lactose AdvReac Upset Verified 01/19/23 18:09 Stomach Family History Father Anxiety Depression Asthma Hypertension Mother Asthma Diabetes Anxiety Depression CAD (coronary artery disease) Myocardial infarction, Onset Age: 42 Brother Oleksandr-Danlos syndrome Grandmother Myocardial infarction, Onset Age: 41 Grandfather Myocardial infarction, Onset Age: 38 Surgical History History of colonoscopy History of esophagogastroduodenoscopy (EGD) Hx of laparoscopy Social History household members: none Smoking Status: Current every day smoker tobacco type: e-cigarettes alcohol intake: current alcohol intake frequency: holidays/special occasions only substance use type: does not use caffeine: Yes Type: carbonated beverages, coffee and tea ROS <TRINO Garcia - Last Filed: 01/19/23 20:03> ROS ED ROS Narrative Constitutional: Negative for fever, chills, malaise. CVS: Positive for chest pain. Respiratory: Negative for shortness of breath, cough. GI: Positive for abdominal pain, nausea, vomiting. : Negative for dysuria. EXAM <TRINO Garcia - Last Filed: 01/19/23 20:03> Physical Exam Narrative Exam Narrative: CONST: Patient sitting in no acute distress. EYES: Normal inspection. NECK: Normal inspection. RESP: No respiratory distress, CTAB. CVS: Regular rate and rhythm, no murmur, no gallop. ABD: Soft with minimal epigastric tenderness, no guarding or rebound, nondistended, no hepatosplenomegaly. SKIN: Color normal, no rash, warm, dry, intact. EXTREMITIES: Normal appearance, no pedal edema. NEURO: Oriented x4. PSYCH: Normal affect. Const Vital Signs: 01/19/23 18:07 01/19/23 20:10 Temperature 97.1 F L Temperature Source Temporal Pulse Rate 104 H 73 Respiratory Rate 16 18 Blood Pressure 134/91 H 120/73 Blood Pressure Mean 105 88 Pulse Ox 100 97 Oxygen Delivery Method Room Air <Dr. Benjamín Emanuel, DO - Last Filed: 01/19/23 23:00> Physical Exam Const Vital Signs: 01/19/23 18:07 01/19/23 20:10 Temperature 97.1 F L Temperature Source Temporal Pulse Rate 104 H 73 Respiratory Rate 16 18 Blood Pressure 134/91 H 120/73 Blood Pressure Mean 105 88 Pulse Ox 100 97 Oxygen Delivery Method Room Air MDM <TRINO Garcia - Last Filed: 01/19/23 20:03> MDM MDM Narrative Medical decision making narrative: History gathered from: Patient and significant other Patient has longstanding history of esophagitis/gastritis, gastroparesis, hematemesis. She has had a few weeks of epigastric pain and 1 episode of hematemesis today. She appears well and nontoxic. HR is 104 with otherwise stable vital signs. Cardiopulmonary exam is normal. She has no subcutaneous emphysema and is in no distress so I am not concerned for Boerhaave syndrome. She has a soft non-surgical abdomen. CBC and CMP are unremarkable. Hemoglobin is 12.7. She is not on blood thinners and denies blood in her stool. She has had hematemesis multiple times in the past and continues to vape and drink alcohol with her diagnosis of gastritis so I think this is likely why she has hematemesis. Vomiting has not reoccurred in the ED and she feels improved after IV fluids, Reglan, Pepcid and [place]. Due to complaint of chest pain EKG was obtained and is nonischemic and troponin is normal at 3. CXR shows no acute process. Since this is a chronic issue and blood work is unremarkable I think she can follow-up with her established GI physician. Return precautions discussed she was encouraged to stop smoking and drinking. She was discharged in stable condition. External records reviewed from GI visit August 2022: Barium swallow 12/04/[address] abdomen/pelvis 10/31/2021 no acute findings EGD 07/19/22 showed esophagitis and gastritis of entire stomach. CT abdomen/pelvis 02/08/[address] abdomen/pelvis 07/02/2022 no acute findings Gastric emptying study 08/07/2022 consistent with gastroparesis, started on Reglan Lab Data Attestation: I reviewed the patient's lab results. Labs: Laboratory Results - last 24 hr 01/19/23 01/19/23 18:40 18:53 WBC 7.4 RBC 5.13 Hgb 12.7 Hct 40.0 MCV 78.0 L MCH 24.8 L MCHC 31.8 L RDW Std Deviation 39.9 RDW Coeff of Anoop 14.2 Plt Count 417 MPV 8.9 Immature Gran % (Auto) 0.100 Neut % (Auto) 59.8 Lymph % (Auto) 30.4 [place] % (Auto) 6.9 Eos % (Auto) 2.3 Baso % (Auto) 0.5 Absolute Neuts (auto) 4.5 Absolute Lymphs (auto) 2.26 Nucleated RBC % 0 Sodium 139 Potassium 3.5 Chloride 111 H Carbon Dioxide 23.0 Anion Gap 5 BUN 8 Creatinine 0.88 Estim Creat Clear Calc 87.32 Est GFR (MDRD) Af Amer 103 Est GFR (MDRD) Non-Af 85 BUN/Creatinine Ratio 9.1 L Glucose 93 Calcium 9.0 Total Bilirubin 0.10 L AST 10 L ALT 25 Alkaline Phosphatase 106 Troponin I High Sens 3 Total Protein 7.8 Albumin 3.5 Globulin 4.3 H Albumin/Globulin Ratio 0.8 L Serum , Qual NEGATIVE Radiography Diagnostic Testing: Clinical Impression(s) from Imaging Studies Chest X-Ray 01/19/23 18:35 IMPRESSION: No acute radiographic abnormalities. Electronically Signed: Karthik Sanchez MD at 19:22 EDT , ED attending interpretation of 1-view chest x-ray shows normal heart size, no acute infiltrate, edema, or effusion. EKG Initial EKG: Attestation: I personally reviewed and interpreted this EKG as follows: Interpretation: Sinus Rhythm and No Acute Injury Pattern Comments: Sinus tachycardia at 107 bpm No ectopy, no acute STEMI criteria <Dr. Benjamín Emanuel, DO - Last Filed: 01/19/23 23:00> [facility] Lab Data Labs: Laboratory Results - last 24 hr 01/19/23 01/19/23 18:40 18:53 WBC 7.4 RBC 5.13 Hgb 12.7 Hct 40.0 MCV 78.0 L MCH 24.8 L MCHC 31.8 L RDW Std Deviation 39.9 RDW Coeff of Anoop 14.2 Plt Count 417 MPV 8.9 Immature Gran % (Auto) 0.100 Neut % (Auto) 59.8 Lymph % (Auto) 30.4 [place] % (Auto) 6.9 Eos % (Auto) 2.3 Baso % (Auto) 0.5 Absolute Neuts (auto) 4.5 Absolute Lymphs (auto) 2.26 Nucleated RBC % 0 Sodium 139 Potassium 3.5 Chloride 111 H Carbon Dioxide 23.0 Anion Gap 5 BUN 8 Creatinine 0.88 Estim Creat Clear Calc 87.32 Est GFR (MDRD) Af Amer 103 Est GFR (MDRD) Non-Af 85 BUN/Creatinine Ratio 9.1 L Glucose 93 Calcium 9.0 Total Bilirubin 0.10 L AST 10 L ALT 25 Alkaline Phosphatase 106 Troponin I High Sens 3 Total Protein 7.8 Albumin 3.5 Globulin 4.3 H Albumin/Globulin Ratio 0.8 L Serum , Qual NEGATIVE Radiography Diagnostic Testing: Clinical Impression(s) from Imaging Studies Chest X-Ray 01/19/23 18:35 IMPRESSION: No acute radiographic abnormalities. Electronically Signed: Karthik Sanchez MD at 19:22 EDT , Treatment and Re-Evaluation :: ED attending note: I evaluated the patient in conjunction with the ALANIS. I agree with his/her statements and above findings. I have personally performed a face to face assessment of the patient and have reviewed the ALANIS Note. I performed a substantive portion of the visit including all aspects of the following. I personally saw the patient performed chart review, physical exam, reviewed labs, imaging (if obtained), and formulated a treatment and management plan. Brief history: 22-year-old female here with abdominal pain and chest pain in the setting of drinking alcohol. The patient denies recent surgery in the last 4 weeks or immobilization in the last 3 days, denies previous diagnosis of DVT or PE, hemoptysis, unilateral leg swelling or malignancy with treatment the last 6 months or palliative. No estrogen use noted. Patient denies sudden onset of pain, no tearing sensation, no migratory symptoms, no new numbness, weakness or loss of sensation. Patient denies family history or personal history of Connective tissue disorders (Marfan's Syndrome, Oleksandr Danlos etc) Exam: Nursing triage notes reviewed, Vital signs reviewed Constitutional: please see mdm HENT: MMM Eyes: Pupils equal round and reactive to light, Extraocular muscles intact Neck: No stridor, no JVD, full neck ROM Lungs: Clear to auscultation, No wheezing or rales. No increased work of breathing, no conversational dyspnea, no accessory muscle use, no nasal flaring. No respiratory distress noted Heart: Regular rate and rhythm, No murmurs, No rubs and No gallops, 2+ distal pulses (radial, femoral, posterior tibial) in all extremities Abdomen: Soft, there is no tenderness, rigidity, rebound or guarding, no obvious peritoneal signs, no palpable pulsatile abdominal masses, no auscultated abdominal bruit : No CVAT Extremities: No edema Neuro: No focal neurological deficits, cranial nerves II through XII intact, 5/5 strength in all extremities. Intact sensation to light touch in all extremities, 2+ reflexes bilateral patella dens. Normal gait. No ataxia. Skin: No rash or lesions noted MDM/plan: Chief Complaint: Abdominal pain, chest pain External records reviewed: Factors affecting care: History of gastroparesis, gastritis Social determinants of health: Alcohol use History obtained from others: Patient's boyfriend Consults: None at this time MDM narrative: Was hemodynamically stable, afebrile, nontoxic-appearing. Exam was benign. No focal cardiopulmonary abnormalities. Abdomen soft nontender with no appreciable tenderness or peritoneal signs. We obtained a broad lab and imaging work-up to further elucidate the etiology of the patient's complaints. EKG showed normal sinus rhythm, normal axis, no intervals, no STEMI, no signs of right heart strain. Patient abdominal exam was benign not consistent with acute surgical abdomen. The patient's presentation does not require advanced imaging at this time. I considered the following differential diagnosis: Dehydration, electrolyte disturbance, , UTI, ACS, esophageal perforation Perform labs to rule out dehydration, electrolyte disturbance, myocardial ischemia, urine test to rule out , chest x-ray to rule out evidence of esophageal perforation. We will give IV fluids Reglan, Pepcid and pain medicine. We will dispo based on results of labs, images, vital signs, repeat abdominal exam and shared decision making. Shared decision making: I will have a discussion with the patient and or visitors regarding risk/benefits of further testing or admission. They will be made aware of of the risk/benefits inherent in this decision they will be given the opportunity to voice understanding. Discharge Plan Triage Chief Complaint: Nausea/Vomiting ED Midlevel Provider: Dai Fonseca ED Provider: Benjamín Emanuel Dx/Rx/DC Orders Clinical Impression: Gastritis, Hematemesis Instructions: ED Gastritis (Adult), ED Upper GI Bleeding (Stable) Prescriptions: No Action diclofenac sodium 75 mg tablet,delayed release (DR/EC) 75 mg PO BID PRN (Reason: pain) topiramate 100 mg tablet 100 mg PO QHS Rx Instructions: give with 25 mg tablet to = 125 mg medroxyprogesterone [Depo-Provera] 150 mg/mL suspension 150 mg IM .q10w Patient Comments: INJECT 1ML INTRAMUSCULARILY EVERY 12 WEEKS metoclopramide HCl 5 mg tablet 2.5 mg PO QAC Qty: 15 2RF Rx Instructions: administer 30 minutes before meals aripiprazole 5 mg tablet 5 mg PO DAILY fluoxetine 40 mg capsule 40 mg PO DAILY topiramate 25 mg tablet 25 mg PO DAILY Patient Comments: take 1 tablet by mouth at bedtime Rx Instructions: give with 100 mg tablet to = 125 mg spironolactone 25 mg tablet 25 mg PO DAILY Qty: 30 11RF epinephrine 0.3 mg/0.3 mL auto-injector 1 mg IM PRN PRN (Reason: Allergic Reaction) Patient Comments: INJECT INTO THE MUSCLE NEEDED FOR ANAPHYLAXIS REACTION albuterol sulfate 90 mcg/actuation HFA aerosol inhaler 2 puff INHALATION PRN PRN (Reason: Wheezing) Patient Comments: inhale 2 puffs by mouth and INTO THE LUNGS every 4 hours if neede... (REFER TO PRESCRIPTION NOTES). trazodone 50 mg tablet 50 mg PO QHS Patient Comments: TAKE 1 OR 2 TABLETS BY MOUTH AT BEDTIME prazosin 1 mg capsule 2 mg PO DAILY Patient Comments: take 1 capsule by mouth twice a day ondansetron 4 mg tablet,disintegrating 4 mg PO Q8H PRN PRN (Reason: Nausea) Qty: 10 0RF naproxen [Naprosyn] 500 mg tablet 500 mg PO BID PRN (Reason: pain) Qty: 20 0RF pantoprazole 40 mg tablet,delayed release (DR/EC) 40 mg PO BID Qty: 60 3RF Primary Care Provider: Monica Patterson Referrals: Monica Patterson, [employer] [Primary Care Provider] - Activity Restrictions/Additional Instructions: Today all of your testing looked within normal limits. Your GI records show you have esophagitis and gastritis which is inflammation of the lower esophagus and entire stomach. Gastritis is worsened by smoking, vaping, and drinking alcohol so you need to avoid these things. Avoid spicy food, take your medications as prescribed and follow-up with GI. If you are vomiting up large amounts of blood return to the ER. Disposition Disposition: Home, Self Care Discharge Date/Time: 01/19/23 20:13
--- NOTE | 2023-01-19 18:35 | RAD_ITS ---
INDICATION: chest pain EXAMINATION/TECHNIQUE: X-RAY - XR Chest 1 View COMPARISON: 01/14/2023. FINDINGS: The lungs are clear. The cardiomediastinal silhouette is unremarkable. No pleural effusion or pneumothorax. No acute osseous abnormalities. RAD/Chest 1 View (Portable) IMPRESSION: No acute radiographic abnormalities. Electronically Signed: Karthik Sanchez MD at 19:22 EDT ,
[2023-01-19] MEDS: Famotidine 200 MG/20 ML MDV 20 MG in 0.9% Normal Saline (Pres. free 8 ML 300 MG IV (18:36)
[2023-01-19] MEDS: 0.9% Normal Saline (1000mL) 1,000 ML 999 ML IV (18:37)
[2023-01-19] MEDS: Metoclopramide 10 MG/2 ML Vial 5 MG IV (18:39)
[2023-01-19 18:49] LABS: Absolute Lymphocyte Count 2.26 X10^3/uL (0.83-4.51); Absolute Neutrophil Count 4.5 X10^3/uL (2.0-7.7); Basophil# 0.04 X10^3/uL; Basophil% 0.5 % (0-1); Eosinophil# 0.17 X10^3/uL; Eosinophils% 2.3 % (0-5); Hemoglobin 12.7 g/dL (12.0-15.0); Lymphocyte # 2.26 X10^3/ul (0.83-4.51); Lymphocyte % 30.4 % (19-41); Mean Corp Hgb Conc 31.8 g/dL (32-36); Mean Corpuscular Hgb 24.8 pg (27.0-32.0); Mean Platelet Vol. 8.9 fl (6.2-12.0); Monocyte# 0.51 X10^3/uL; Monocyte% 6.9 % (0-10); NRBC Flagged by Analyzer 0 % (0-5); Neutrophil # 4.45 X10^3/uL (2.7-7.7); Neutrophil % 59.8 % (47-70); Platelet Count 417 K/mm3 (150-450); RBC Distribution Width CV 14.2 % (11.6-14.6); RBC Distribution Width SD 39.9 fl (35.1-43.9); Red Blood Count 5.13 M/mm3 (4.2-5.4); White Blood Count 7.4 K/mm3 (4.4-11.0)
[2023-01-19 19:18] LABS: ALB/GLOB Ratio 0.8 RATIO (0.9-2.4); AST(SGOT) 10 U/L (15-37); Alanine Aminotransfer ALT/SGPT 25 U/L (13-56); Albumin, Serum 3.5 g/dL (3.2-5.0); Alkaline Phosphatase 106 U/L (45-117); Anion Gap 5 (5-15); BUN 8 mg/dL (7-18); BUN/Creat Ratio 9.1 RATIO (10-20); Chloride 111 mmol/L (98-107); Creatinine, Serum 0.88 mg/dL (0.55-1.02); EST Glomerular Filtration Rate 85 mL/min (>60); Est Glom Filt Rate - Afr Amer 103 mL/min (>60); Estimated Creatinine Clearance 87.32 ml/min; Globulin 4.3 g/dL (2.2-4.2); Glucose 93 mg/dL (74-106); Potassium 3.5 mmol/L (3.5-5.1); Protein, Total 7.8 g/dL (6.4-8.2); Sodium Level 139 mmol/L (136-145); Troponin-I HS 3 pg/mL (3.0-54.0)
[2023-01-19 19:30] LABS: Internal QC Validated? YES +Cl - CLEAR BKGD; Pregnancy, Serum, hCG Quali. NEGATIVE Negative
[2023-01-19] MEDS: Ondansetron 4 MG/2 ML Vial IV (19:58)
[2023-01-19] MEDS: Oxycodone/Apap 5/325 Tablet PO (19:58)
[2023-01-19 20:10] VITALS: BP 120/73; PULSE 73; RESP 18; O2SAT 97
== END 2023-01-19 20:13 | disposition home or self-care (01) ==
PROVIDERS: Physician Assistant; Emergency Provider Emergency Medicine; PCP Nurse Practitioner Family; Visit Provider Emergency Medicine
DX: K29.70 Gastritis, unspecified, without bleeding (principal); F20.9 Schizophrenia, unspecified; K21.00 Gastro-esophageal reflux disease with esophagitis, without bleeding; K92.0 Hematemesis; J45.909 Unspecified asthma, uncomplicated; Z79.899 Other long term (current) drug therapy; Z79.3 Long term (current) use of hormonal contraceptives; F32.A Depression, unspecified; F42.9 Obsessive-compulsive disorder, unspecified; F17.290 Nicotine dependence, other tobacco product, uncomplicated
CPT/HCPCS: 71045; 80053; 84484; 84703; 85025; 93005; 99282; J2405; J3490

== ENCOUNTER 2023-01-20 10:19 | Emergency (ER) | payer MEDICAID, SELFPAY ==
[2023-01-20 10:20] VITALS: BP 138/91; PULSE 105; RESP 18; TEMP 36.1; O2SAT 100; BMI 28.8
--- NOTE | 2023-01-20 10:30 | EKG12_ITS ---
Test Reason : Blood Pressure : / mmHG Vent. Rate : 089 BPM Atrial Rate : 089 BPM P-R Int : 152 ms QRS Dur : 072 ms QT Int : 368 ms P-R-T Axes : 052 022 001 degrees QTc Int : 447 ms Normal sinus rhythm Normal ECG Confirmed by SALLY COOL, HUBER ([id number]), copy editor JOHANA ESCAMILLA ([id number]) on 01/22/2023 7:37:56 AM Referred By: SHAWNEE Confirmed By:HUBER ZAVALA MD
--- NOTE | 2023-01-20 10:32 | EDS_ITS ---
HPI History of Present Illness Chief Complaint: Hypertension Narrative Narrative: 22-year-old female past medical history of POTS, tachycardia, hypertension. She took her blood pressure and noted it it was elevated in the 130s. Throughout the day it has gotten as high as the 160s. She states that she is on medication because 1 time when she was in the emergency department and it spiked as high as the 180s. She took the prazosin today along with her spironolactone, and follows up with cardiology. She states that she has pain along her lower thoracic back and travels up her spinal cord. She denies any exacerbating or alleviating factors. She states she had chest pain when I applied my stethoscope to her chest wall. [facility] Medical History Anxiety Asthma Depression Diarrhea Endometriosis Gastroparesis GERD (gastroesophageal reflux disease) Migraine OCD (obsessive compulsive disorder) Pelvic pain POTS (postural orthostatic tachycardia syndrome) PTSD (post-traumatic stress disorder) Schizophrenia Tachycardia Upper abdominal pain Home Medications albuterol sulfate 90 mcg/actuation aerosol inhaler 2 puff inhalation PRN PRN Wheezing 06/14/21 [History Last Taken Unknown] epinephrine 0.3 mg/0.3 mL injection, auto-injector 1 mg IM PRN PRN Allergic Reaction 06/14/21 [History Last Taken Unknown] diclofenac sodium 75 mg tablet,delayed release 75 mg PO BID PRN pain 01/04/22 [History Last Taken Unknown] medroxyprogesterone 150 mg/mL intramuscular suspension (Depo-Provera) 150 mg IM .q10w 01/04/22 [History Last Taken Unknown] prazosin 1 mg capsule 2 mg PO DAILY 03/19/22 [History Last Taken Unknown] trazodone 50 mg tablet 50 mg PO QHS 03/19/22 [History Last Taken Unknown] metoclopramide HCl 5 mg tablet 2.5 mg (1/2 x 5 mg) PO QAC #15 tabs 08/08/22 [Rx Last Taken Unknown] ondansetron 4 mg disintegrating tablet 4 mg PO Q8H PRN PRN Nausea #10 tabs 09/07/22 [Rx Last Taken Unknown] pantoprazole 40 mg tablet,delayed release 40 mg PO BID #60 tabs 12/03/22 [Rx Last Taken Unknown] naproxen 500 mg tablet (Naprosyn) 500 mg PO BID PRN pain #20 tabs 12/18/22 [Rx Last Taken Unknown] aripiprazole 5 mg tablet 5 mg PO DAILY 01/16/23 [History Last Taken Unknown] fluoxetine 40 mg capsule 40 mg PO DAILY 01/16/23 [History Last Taken Unknown] spironolactone 25 mg tablet 25 mg PO DAILY #30 tabs 01/16/23 [Rx Last Taken Unknown] topiramate 100 mg tablet 100 mg PO QHS 01/16/23 [History Last Taken Unknown] topiramate 25 mg tablet 25 mg PO DAILY 01/16/23 [History Last Taken Unknown] Allergy/AdvReac Type Severity Reaction Status Date / Time gabapentin Allergy Rash Verified 01/19/23 18:09 glycerin [From Nasal-Ease] Allergy Swelling Verified 01/19/23 18:09 methylcellulose Allergy Swelling Verified 01/19/23 18:09 [From Nasal-Ease] sertraline [From Zoloft] Allergy Anaphylaxis Verified 01/19/23 18:09 silicone Allergy Rash Verified 01/19/23 18:09 sodium chloride Allergy Swelling Verified 01/19/23 18:09 [From Nasal-Ease] zinc [From Nasal-Ease] Allergy Swelling Verified 01/19/23 18:09 lactose AdvReac Upset Verified 01/19/23 18:09 Stomach Family History Father Anxiety Depression Asthma Hypertension Mother Asthma Diabetes Anxiety Depression CAD (coronary artery disease) Myocardial infarction, Onset Age: 42 Brother Oleksandr-Danlos syndrome Grandmother Myocardial infarction, Onset Age: 41 Grandfather Myocardial infarction, Onset Age: 38 Surgical History History of colonoscopy History of esophagogastroduodenoscopy (EGD) Hx of laparoscopy Social History household members: none Smoking Status: Current every day smoker tobacco type: e-cigarettes alcohol intake: current alcohol intake frequency: holidays/special occasions only substance use type: does not use caffeine: Yes Type: carbonated beverages, coffee and tea ROS ROS ED ROS Narrative Constitutional: No fever, no chills. HEENT: No sore throat. No neck pain. No loss of vision. No rhinorrhea. Cardiovascular: Positive chest pain. No palpitations. No pedal edema. Respiratory: No cough, no shortness of breath. Abdominal: No abdominal pain. No nausea. No vomiting. Genitourinary: No dysuria. No hematuria. Musculoskeletal: No myalgias. No arthralgias. Positive thoracic back pain. Neurologic: No headaches. No dizziness. No lightheadedness. Skin: No rash. No change in color. Psychiatric: No depression. No anxiety. EXAM Physical Exam Narrative Exam Narrative: Afebrile. Vital signs noted. HEENT: Normocephalic. Atraumatic. PERRL, EOMI. Neck soft and supple. No point tenderness or step off. Cardiovascular: Regular rate and rhythm. No murmurs, rubs, or gallops appreciated. No thoracic point tenderness or bony step-off. Equal pulses bilaterally. Respiratory: No tachypnea. Lungs clear to auscultation bilaterally. Gastrointestinal: Abdomen soft, nontender, with normoactive bowel sounds. No rebound or guarding. Neurological: Awake. Alert. Nonfocal, nonlateralizing. Skin: No rash. Normal color. No pallor. Musculoskeletal: No pedal edema. Full range of motion extremities. Const Vital Signs: 01/20/23 10:20 01/20/23 10:28 01/20/23 12:15 Temperature 97 F L Temperature Source Temporal Pulse Rate 105 H 89 Respiratory Rate 18 18 Respiratory Effort Normal Non-Labored Respiratory Pattern Normal Blood Pressure 138/91 H 131/85 H Blood Pressure Mean 106 100 Pulse Ox 100 100 Oxygen Delivery Method Room Air Room Air MDM MDM MDM Narrative Medical decision making narrative: In the differential diagnosis is acute coronary syndrome versus pulmonary embolism versus acute dissection. I have lower suspicion for dissection as she has an appropriate blood pressure here in the emergency department, no tearing sensation to her back. I will obtain a D-dimer as well. Chest pain work-up was pursued along with urinalysis. Her pulse ox is 100% on room air so I have lower suspicion for pulmonary embolism or even pneumothorax or pneumonia. History and physical is not suggestive of the latter 2 diagnoses. EKG obtained and interpreted by myself independently as normal sinus rhythm at 89 bpm without ectopy or acute ST changes. No STEMI. I reviewed her prior laboratory work and she had negative D-dimers and troponins in the past. Review of her laboratory work today shows a normal white count of 7.9, hemoglobin normal at 12.6 and platelet count normal at 380. Initial D-dimer was hemolyzed, but repeat has returned and is less than 0.27. I have low suspicion for pulmonary embolism or dissection. In review of her BMP chloride is elevated at 114 which I think is nonspecific, glucose appropriately elevated at 83 with a normal BUN of 9 and normal creatinine of 0.87. Urinalysis is negative for in fection. I do not feel antibiotics are indicated. Initial high-sensitivity troponin is 6. Repeat is also 6. Initially she requested Tylenol for her back pain. This was given. Upon repeat examination she is resting comfortably looking at her cellular telephone. I interpreted her 1 view chest x-ray independently and see no evidence of an acute process, no pneumonia or pneumothorax. I reviewed the radiology report which confirms my independent interpretation. I do not feel any further imaging is indicated. Her blood pressure has returned to an acceptable level. She will continue her an tihypertensive medications and follow-up with her primary care provider. I do not feel she requires observation. She states that her pain was returning so she will be given Toradol prior to discharge. Disposition is discharged home in stable condition. History & Record Review Discussion w/independent historian: Patient Additional record(s) reviewed:: Prior ED visit and Prior labs Lab Data Attestation: I reviewed the patient's lab results. Labs: Laboratory Results - last 24 hr 01/20/23 01/20/23 01/20/23 10:45 11:20 12:00 WBC 7.9 RBC 4.96 Hgb 12.6 Hct 38.8 MCV 78.2 L MCH 25.4 L MCHC 32.5 RDW Std Deviation 40.4 RDW Coeff of Anoop 14.4 Plt Count 380 MPV 8.7 Immature Gran % (Auto) 0.300 Neut % (Auto) 66.3 Lymph % (Auto) 22.8 [place] % (Auto) 7.8 Eos % (Auto) 2.4 Baso % (Auto) 0.4 Absolute Neuts (auto) 5.3 Absolute Lymphs (auto) 1.81 Nucleated RBC % 0 D-Dimer Quant (PE/DVT) Cancelled < 0.27 L Sodium 139 Potassium 3.6 Chloride 114 H Carbon Dioxide 20.0 L Anion Gap 5 BUN 9 Creatinine 0.87 Estim Creat Clear Calc 88.33 Est GFR (MDRD) Af Amer 104 Est GFR (MDRD) Non-Af 86 BUN/Creatinine Ratio 10.3 Glucose 83 Calcium 8.5 Troponin I High Sens 6 Urine Color Yellow Urine Clarity Clear Urine pH 7.0 Ur Specific [place] 1.010 Urine Protein 15 H Urine Glucose (UA) Normal Urine Ketones Negative Urine Occult Blood 250 H Urine Nitrite Negative Urine Bilirubin Negative Urine Urobilinogen Normal Ur Leukocyte Esterase 100 H Urine RBC 0-5 SEEN Urine WBC 5-10 SEEN Ur Squamous Epith Cells 0 SEEN Urine Bacteria 0 SEEN Urine Mucus 0 SEEN 01/20/23 12:40 WBC RBC Hgb Hct MCV MCH MCHC RDW Std Deviation RDW Coeff of Anoop Plt Count MPV Immature Gran % (Auto) Neut % (Auto) Lymph % (Auto) [place] % (Auto) Eos % (Auto) Baso % (Auto) Absolute Neuts (auto) Absolute Lymphs (auto) Nucleated RBC % D-Dimer Quant (PE/DVT) Sodium Potassium Chloride Carbon Dioxide Anion Gap BUN Creatinine Estim Creat Clear Calc Est GFR (MDRD) Af Amer Est GFR (MDRD) Non-Af BUN/Creatinine Ratio Glucose Calcium Troponin I High Sens 6 Urine Color Urine Clarity Urine pH Ur Specific [place] Urine Protein Urine Glucose (UA) Urine Ketones Urine Occult Blood Urine Nitrite Urine Bilirubin Urine Urobilinogen Ur Leukocyte Esterase Urine RBC Urine WBC Ur Squamous Epith Cells Urine Bacteria Urine Mucus Radiography Diagnostic Testing: Clinical Impression(s) from Imaging Studies Chest X-Ray 01/20/23 10:50 IMPRESSION: No radiographic evidence of acute cardiopulmonary disease. Electronically Signed: Morena Xiong MD at 11:26 EDT , Discharge Plan Triage Chief Complaint: Hypertension Other Complaint: Back ED Provider: Ron Gray Dx/Rx/DC Orders Clinical Impression: Back pain, thoracic, Chest pain Instructions: ED Back Pain (Acute or Chronic), ED Chest Pain, Uncertain Cause, ED Hypertension, Established Prescriptions: No Action diclofenac sodium 75 mg tablet,delayed release (DR/EC) 75 mg PO BID PRN (Reason: pain) topiramate 100 mg tablet 100 mg PO QHS Rx Instructions: give with 25 mg tablet to = 125 mg medroxyprogesterone [Depo-Provera] 150 mg/mL suspension 150 mg IM .q10w Patient Comments: INJECT 1ML INTRAMUSCULARILY EVERY 12 WEEKS metoclopramide HCl 5 mg tablet 2.5 mg PO QAC Qty: 15 2RF Rx Instructions: administer 30 minutes before meals aripiprazole 5 mg tablet 5 mg PO DAILY fluoxetine 40 mg capsule 40 mg PO DAILY topiramate 25 mg tablet 25 mg PO DAILY Patient Comments: take 1 tablet by mouth at bedtime Rx Instructions: give with 100 mg tablet to = 125 mg spironolactone 25 mg tablet 25 mg PO DAILY Qty: 30 11RF epinephrine 0.3 mg/0.3 mL auto-injector 1 mg IM PRN PRN (Reason: Allergic Reaction) Patient Comments: INJECT INTO THE MUSCLE NEEDED FOR ANAPHYLAXIS REACTION albuterol sulfate 90 mcg/actuation HFA aerosol inhaler 2 puff INHALATION PRN PRN (Reason: Wheezing) Patient Comments: inhale 2 puffs by mouth and INTO THE LUNGS every 4 hours if neede... (REFER TO PRESCRIPTION NOTES). trazodone 50 mg tablet 50 mg PO QHS Patient Comments: TAKE 1 OR 2 TABLETS BY MOUTH AT BEDTIME prazosin 1 mg capsule 2 mg PO DAILY Patient Comments: take 1 capsule by mouth twice a day ondansetron 4 mg tablet,disintegrating 4 mg PO Q8H PRN PRN (Reason: Nausea) Qty: 10 0RF naproxen [Naprosyn] 500 mg tablet 500 mg PO BID PRN (Reason: pain) Qty: 20 0RF pantoprazole 40 mg tablet,delayed release (DR/EC) 40 mg PO BID Qty: 60 3RF Primary Care Provider: Monica Patterson Referrals: Monica Patterson, [facility] [Primary Care Provider] - 3-5 Days Activity Restrictions/Additional Instructions: Take [id number] medications as needed for pain. Follow-up with your primary care provider. Disposition Disposition: Home, Self Care
--- NOTE | 2023-01-20 10:50 | RAD_ITS ---
INDICATION: chest pain EXAMINATION/TECHNIQUE: X-RAY - XR Chest 1 View COMPARISON: January 19, 2023 FINDINGS: LINES/DEVICES: None. LUNGS: No consolidation, edema or effusion. No pneumothorax. MEDIASTINUM AND CARDIOVASCULAR STRUCTURES: Cardiac silhouette not enlarged. Central airways and mediastinal contour are unremarkable. BONES AND SOFT TISSUES: Unremarkable. RAD/Chest 1 View (Portable) IMPRESSION: No radiographic evidence of acute cardiopulmonary disease. Electronically Signed: Morena Xiong MD at 11:26 EDT ,
[2023-01-20 10:57] LABS: Absolute Lymphocyte Count 1.81 X10^3/uL (0.83-4.51); Absolute Neutrophil Count 5.3 X10^3/uL (2.0-7.7); Basophil# 0.03 X10^3/uL; Basophil% 0.4 % (0-1); Eosinophil# 0.19 X10^3/uL; Eosinophils% 2.4 % (0-5); Hematocrit 38.8 % (37-47); Hemoglobin 12.6 g/dL (12.0-15.0); Lymphocyte # 1.81 X10^3/ul (0.83-4.51); Lymphocyte % 22.8 % (19-41); Mean Corp Hgb Conc 32.5 g/dL (32-36); Mean Corpuscular Hgb 25.4 pg (27.0-32.0); Mean Corpuscular Volume 78.2 fL (81-99); Mean Platelet Vol. 8.7 fl (6.2-12.0); Monocyte# 0.62 X10^3/uL; Monocyte% 7.8 % (0-10); NRBC Flagged by Analyzer 0 % (0-5); Neutrophil # 5.27 X10^3/uL (2.7-7.7); Neutrophil % 66.3 % (47-70); Platelet Count 380 K/mm3 (150-450); RBC Distribution Width CV 14.4 % (11.6-14.6); RBC Distribution Width SD 40.4 fl (35.1-43.9); Red Blood Count 4.96 M/mm3 (4.2-5.4); White Blood Count 7.9 K/mm3 (4.4-11.0)
[2023-01-20 11:07] LABS: Anion Gap 5 (5-15); BUN 9 mg/dL (7-18); BUN/Creat Ratio 10.3 RATIO (10-20); Calcium,Total 8.5 mg/dL (8.5-10.1); Chloride 114 mmol/L (98-107); Creatinine, Serum 0.87 mg/dL (0.55-1.02); EST Glomerular Filtration Rate 86 mL/min (>60); Est Glom Filt Rate - Afr Amer 104 mL/min (>60); Estimated Creatinine Clearance 88.33 ml/min; Glucose 83 mg/dL (74-106); Potassium 3.6 mmol/L (3.5-5.1); Sodium Level 139 mmol/L (136-145); Troponin-I HS (w/2H Reflex) 6 pg/mL (3.0-54.0)
[2023-01-20 11:28] LABS: Bacteria 0 SEEN /hpf (None Seen); Mucous, Urine 0 SEEN /hpf (<or=2+); Squamous Epithelial Cells - UA 0 SEEN /hpf (5-10)
[2023-01-20 11:31] LABS: Color, Urine Yellow (Yellow); Glucose, Dipstick Normal (Normal); Ketone-Dipstick Negative (Negative); Leukocyte Esterase-Dipstick 100 /ul (Negative); Nitrite-Dipstick Negative (Negative); Occult Blood-Urine 250 /ul (Negative); Protein-Dipstick 15 mg/dl (Negative); Urine Bilirubin Dipstick Negative (Negative); Urine Clarity Clear (Clear); Urine Urobilinogen Normal (Normal)
[2023-01-20 11:46] LABS: Red Blood Cells-Urine 0-5 SEEN /hpf (0-5); White Blood Cells 5-10 SEEN /hpf (0-5)
[2023-01-20] MEDS: Acetaminophen 325 MG Tablet 650 MG PO (12:14)
[2023-01-20 12:15] VITALS: BP 131/85; PULSE 89; RESP 18; O2SAT 100
[2023-01-20 12:29] LABS: D-Dimer Quantitative (DVT/PE) < 0.27 FEU/ug/m (0.27-0.49)
[2023-01-20 12:47] LABS: Reflex Troponin-HS? (from REC) Y
[2023-01-20 13:13] LABS: Troponin-I HS 6 pg/mL (3.0-54.0)
[2023-01-20] MEDS: Ketorolac 15 MG/ML Vial IV (13:24)
== END 2023-01-20 13:29 | disposition home or self-care (01) ==
PROVIDERS: Emergency Provider Emergency Medicine; PCP Nurse Practitioner Family; Visit Provider Emergency Medicine
DX: R07.9 Chest pain, unspecified (principal); F20.9 Schizophrenia, unspecified; I10 Essential (primary) hypertension; M54.6 Pain in thoracic spine; J45.909 Unspecified asthma, uncomplicated; Z79.899 Other long term (current) drug therapy; Z79.3 Long term (current) use of hormonal contraceptives; K21.9 Gastro-esophageal reflux disease without esophagitis; F32.A Depression, unspecified; F42.9 Obsessive-compulsive disorder, unspecified; F17.290 Nicotine dependence, other tobacco product, uncomplicated
CPT/HCPCS: 71045; 80048; 81001; 84484; 85025; 85379; 93005; 99285; A4216

== ENCOUNTER 2023-01-27 06:55 | Emergency (ER) | payer MEDICAID, SELFPAY ==
[2023-01-27 06:56] VITALS: BP 129/80; PULSE 94; RESP 16; TEMP 36.5; O2SAT 100; BMI 28.4
--- NOTE | 2023-01-27 07:10 | ED.VIS.GI ---
HPI HPI - GI History of Present Illness Chief Complaint: Abd Pain Detail of Chief Complaint: Abdominal pain Informant: patient Abdominal Pain/Flank Pain Current Severity: 10/22 Narrative Narrative: Patient presents to the emergency department complaint of abdominal pain initially started yesterday afternoon. Patient states the pain was the right upper quadrant but she is used to having pain so she did not think much of it. This morning she woke up with severe pain in the right upper quadrant and epigastric region radiating to her back. She states she ate some tacos yesterday. She has not had pain quite like this but does have frequent abdominal pain. Patient has had prior colonoscopy as well as prior EGD. Patient is scheduled to have an EGD tomorrow. She had nausea with this but no vomiting. She has frequent blood in her stool and she attributes that to her internal hemorrhoids. No family history of inflammatory bowel disease. [facility] Medical History Anxiety Asthma Depression Diarrhea Endometriosis Gastroparesis GERD (gastroesophageal reflux disease) Migraine OCD (obsessive compulsive disorder) Pelvic pain POTS (postural orthostatic tachycardia syndrome) PTSD (post-traumatic stress disorder) Schizophrenia Tachycardia Upper abdominal pain Home Medications albuterol sulfate 90 mcg/actuation aerosol inhaler 2 puff inhalation PRN PRN Wheezing 06/14/21 [History Last Taken Unknown] epinephrine 0.3 mg/0.3 mL injection, auto-injector 1 mg IM PRN PRN Allergic Reaction 06/14/21 [History Last Taken Unknown] diclofenac sodium 75 mg tablet,delayed release 75 mg PO BID PRN pain 01/04/22 [History Last Taken Unknown] medroxyprogesterone 150 mg/mL intramuscular suspension (Depo-Provera) 150 mg IM .q10w 01/04/22 [History Last Taken Unknown] prazosin 1 mg capsule 2 mg PO DAILY 03/19/22 [History Last Taken Unknown] trazodone 50 mg tablet 50 mg PO QHS 03/19/22 [History Last Taken Unknown] metoclopramide HCl 5 mg tablet 2.5 mg (1/2 x 5 mg) PO QAC #15 tabs 08/08/22 [Rx Last Taken Unknown] ondansetron 4 mg disintegrating tablet 4 mg PO Q8H PRN PRN Nausea #10 tabs 09/07/22 [Rx Last Taken Unknown] pantoprazole 40 mg tablet,delayed release 40 mg PO BID #60 tabs 12/03/22 [Rx Last Taken Unknown] naproxen 500 mg tablet (Naprosyn) 500 mg PO BID PRN pain #20 tabs 12/18/22 [Rx Last Taken Unknown] aripiprazole 5 mg tablet 5 mg PO DAILY 01/16/23 [History Last Taken Unknown] fluoxetine 40 mg capsule 40 mg PO DAILY 01/16/23 [History Last Taken Unknown] spironolactone 25 mg tablet 25 mg PO DAILY #30 tabs 01/16/23 [Rx Last Taken Unknown] topiramate 100 mg tablet 100 mg PO QHS 01/16/23 [History Last Taken Unknown] topiramate 25 mg tablet 25 mg PO DAILY 01/16/23 [History Last Taken Unknown] Allergy/AdvReac Type Severity Reaction Status Date / Time gabapentin Allergy Rash Verified 01/27/23 06:55 glycerin [From Nasal-Ease] Allergy Swelling Verified 01/27/23 06:55 methylcellulose Allergy Swelling Verified 01/27/23 06:55 [From Nasal-Ease] sertraline [From Zoloft] Allergy Anaphylaxis Verified 01/27/23 06:55 silicone Allergy Rash Verified 01/27/23 06:55 sodium chloride Allergy Swelling Verified 01/27/23 06:55 [From Nasal-Ease] zinc [From Nasal-Ease] Allergy Swelling Verified 01/27/23 06:55 lactose AdvReac Upset Verified 01/27/23 06:55 Stomach Family History Father Anxiety Depression Asthma Hypertension Mother Asthma Diabetes Anxiety Depression CAD (coronary artery disease) Myocardial infarction, Onset Age: 42 Brother Oleksandr-Danlos syndrome Grandmother Myocardial infarction, Onset Age: 41 Grandfather Myocardial infarction, Onset Age: 38 Surgical History History of colonoscopy History of esophagogastroduodenoscopy (EGD) Hx of laparoscopy Social History household members: none Smoking Status: Current every day smoker tobacco type: e-cigarettes alcohol intake: current alcohol intake frequency: holidays/special occasions only substance use type: does not use caffeine: Yes Type: carbonated beverages, coffee and tea ROS ROS ED Review of Systems ROS Unobtainable: other Constitutional Constitutional ED: Reports lethargy; Denies chills, fever(s), sweats or weight loss Eyes Eyes: Denies blurry vision, change in vision or diplopia ENT ENT ED: Denies rhinorrhea or sore throat Cardiovascular Cardiovascular: Denies chest pain, orthopnea or racing heartbeat Respiratory/Chest Respiratory/Chest: Denies cough, dyspnea, dyspnea on exertion, orthopnea or sputum Gastrointestinal Gastrointestinal: Reports abdominal pain and nausea; Denies diarrhea or vomiting Genitourinary Genitourinary ED: Denies dysuria, hematuria or urinary frequency Musculoskeletal Musculoskeletal: Denies arthralgias, back pain, myalgias or neck pain Integumentary Denies abscess, Abrasions or rash Neurologic Neurologic: Denies headache(s) or weakness Psychiatric Psychiatric: Denies anxiety, depression or suicidal thoughts Endocrine Endocrinology: Denies polydipsia, polyphagia or polyuria Hematologic/Lymphatic Hematologic/Lymphatic: Denies easy bleeding, easy bruising or lymphadenopathy Allergic/Immunologic Allergic/Immunologic ED: Denies mouth swelling, tongue swelling or urticaria EXAM Physical Exam Const Vital Signs: 01/27/23 06:56 01/27/23 07:49 01/27/23 09:45 Temperature 97.7 F L Temperature Source Temporal Pulse Rate 94 67 67 Respiratory Rate 16 24 H 16 Blood Pressure 129/80 H 131/76 H 114/72 Blood Pressure Mean 96 94 86 Pulse Ox 100 100 99 Oxygen Delivery Method Room Air Positive well nourished and well developed General Appearance ED: well developed and NAD HEENT Reports TM's clear and moist mucous membranes normocephalic and atraumatic; Negative for trauma or tenderness Tympanic Membrane ED: Yes TM's clear Eyes PERRL and EOMs intact bilaterally General Eye ED: Negative for pale conjunctiva or scleral icterus Neck no lymphadenopathy, supple and no JVD General: Negative for tenderness Chest Wall inspection of chest normal and palpation of chest normal Chest: Negative for tenderness Resp normal respiratory effort and clear to auscultation bilaterally Effort and Inspection: Negative for respiratory distress or pain with movement Auscultation: Negative for rhonchi, wheezes or diminished lung sounds Cardio regular rate, regular rhythm, S1 normal heart sound, S2 normal heart sound and no murmurs Peripheral Pulses: pulses 2+ throughout GI normal to inspection, nondistended, normoactive bowel sounds, soft to palpation, non-tender and no masses GI Narrative: Diffuse tenderness palpation especially of the right upper quadrant and epigastric region. There are some mild guarding. There is no rebound, rigidity, or pedal signs. No mass palpated. Back/Spine no CVA tenderness and no thoracic nor lumbar tenderness Extremity normal to inspection General Extremety ED: Negative for edema General Extremity: Negative for edema Neuro oriented x3, CN's II-XII intact bilaterally, no sensory deficits noted and gait normal Sensorium / Orientation: awake, alert, oriented to person, oriented to place and oriented to time Motor Exam: strength 5/5 throughout and strength abnormal Psych mental status grossly normal Skin no rashes or lesions noted and no wounds MDM MDM MDM Narrative Medical decision making narrative: Presents with abdominal pain in the upper abdomen. In the differential would be gallbladder disease versus gastritis or peptic ulcer disease versus pancreatitis. IV line established. Patient was treated with Zofran as well as a GI cocktail and Prevacid. Will obtain basic labs including LFTs and lipase and lactate. Serum Preg and a urinalysis. Patient CBC with her showed a normal white count of 5.8 with hemoglobin 12 and platelet count of 432. Chemistries unremarkable. LFTs normal. Lipase normal. Lactate normal. Urinalysis was unremarkable. was negative. Patient was given Protonix on arrival as well as Zofran and a GI cocktail she states that about 20 minutes ago her pain became more severe and now is radiating up her back into her chest. Still complains of severe pain. Discussed imaging options with patient and she understands risk of radiation related to frequent imaging. She tells me her pain is different than usual and understands risk of radiation wants to have some imaging performed to rule out perforation or other etiology of her pain. Patient will have a CT scan of her abdomen pelvis with IV contrast and a chest x-ray obtained to evaluate further. CT scan of the abdomen pelvis essentially unremarkable. Chest x-ray showed no acute disease process. This point etiology of her pain unclear. She will see her surgeon tomorrow for EGD. She is to continue with her pantoprazole at home. Advised return if worsening pain, fever, vomiting, or condition worsen anyway. Lab Data Attestation: I reviewed the patient's lab results. Labs: Laboratory Results - last 24 hr 01/27/23 01/27/23 07:15 08:07 WBC 5.8 RBC 4.95 Hgb 12.1 Hct 38.2 MCV 77.2 L MCH 24.4 L MCHC 31.7 L RDW Std Deviation 39.9 RDW Coeff of Anoop 14.4 Plt Count 432 MPV 8.8 Immature Gran % (Auto) 0.200 Neut % (Auto) 57.6 Lymph % (Auto) 31.6 [place] % (Auto) 7.7 Eos % (Auto) 2.6 Baso % (Auto) 0.3 Absolute Neuts (auto) 3.4 Absolute Lymphs (auto) 1.84 Nucleated RBC % 0 Sodium 141 Potassium 3.3 L Chloride 115 H Carbon Dioxide 19.0 L Anion Gap 7 BUN 13 Creatinine 0.88 Estim Creat Clear Calc 86.59 Est GFR (MDRD) Af Amer 103 Est GFR (MDRD) Non-Af 85 BUN/Creatinine Ratio 14.8 Glucose 96 Lactic Acid 1.0 Calcium 8.5 Total Bilirubin 0.30 AST 19 ALT 20 Alkaline Phosphatase 96 Total Protein 7.3 Albumin 3.2 Globulin 4.1 Albumin/Globulin Ratio 0.8 L Lipase 21 Urine Color Yellow Urine Clarity Clear Urine pH 7.0 Ur Specific [place] 1.010 Urine Protein Negative Urine Glucose (UA) Normal Urine Ketones Negative Urine Occult Blood 25 H Urine Nitrite Negative Urine Bilirubin Negative Urine Urobilinogen Normal Ur Leukocyte Esterase 100 H Urine RBC 0 SEEN Urine WBC 5-10 SEEN Ur Squamous Epith Cells 0-5 SEEN Urine Bacteria 1+ Urine Mucus 0 SEEN Urine Test Negative Radiography Diagnostic Testing: Clinical Impression(s) from Imaging Studies Abdomen/Pelvis CT 01/27/23 08:41 IMPRESSION: Persistent mild enteritis No suspicious solid organ abnormality No free intraperitoneal fluid, air, or suspicious adenopathy, normal appendix visualized Electronically Signed: Garrett Clemons MD at 9:20 EDT , Chest X-Ray 01/27/23 08:41 IMPRESSION: No acute pulmonary process Electronically Signed: Garrett Clemons MD at 9:20 EDT , 1 view chest x-ray obtained interpreted by myself as no evidence of acute disease process such as infiltrate or pneumothorax. Radiology agreement. Discharge Plan Triage Chief Complaint: Abd Pain ED Provider: Loree Funes Dx/Rx/DC Orders Clinical Impression: Abdominal pain Instructions: ED Abdominal Pain Unkn Cause Fem Prescriptions: No Action diclofenac sodium 75 mg tablet,delayed release (DR/EC) 75 mg PO BID PRN (Reason: pain) topiramate 100 mg tablet 100 mg PO QHS Rx Instructions: give with 25 mg tablet to = 125 mg medroxyprogesterone [Depo-Provera] 150 mg/mL suspension 150 mg IM .q10w Patient Comments: INJECT 1ML INTRAMUSCULARILY EVERY 12 WEEKS metoclopramide HCl 5 mg tablet 2.5 mg PO QAC Qty: 15 2RF Rx Instructions: administer 30 minutes before meals aripiprazole 5 mg tablet 5 mg PO DAILY fluoxetine 40 mg capsule 40 mg PO DAILY topiramate 25 mg tablet 25 mg PO DAILY Patient Comments: take 1 tablet by mouth at bedtime Rx Instructions: give with 100 mg tablet to = 125 mg spironolactone 25 mg tablet 25 mg PO DAILY Qty: 30 11RF epinephrine 0.3 mg/0.3 mL auto-injector 1 mg IM PRN PRN (Reason: Allergic Reaction) Patient Comments: INJECT INTO THE MUSCLE NEEDED FOR ANAPHYLAXIS REACTION albuterol sulfate 90 mcg/actuation HFA aerosol inhaler 2 puff INHALATION PRN PRN (Reason: Wheezing) Patient Comments: inhale 2 puffs by mouth and INTO THE LUNGS every 4 hours if neede... (REFER TO PRESCRIPTION NOTES). trazodone 50 mg tablet 50 mg PO QHS Patient Comments: TAKE 1 OR 2 TABLETS BY MOUTH AT BEDTIME prazosin 1 mg capsule 2 mg PO DAILY Patient Comments: take 1 capsule by mouth twice a day ondansetron 4 mg tablet,disintegrating 4 mg PO Q8H PRN PRN (Reason: Nausea) Qty: 10 0RF naproxen [Naprosyn] 500 mg tablet 500 mg PO BID PRN (Reason: pain) Qty: 20 0RF pantoprazole 40 mg tablet,delayed release (DR/EC) 40 mg PO BID Qty: 60 3RF Primary Care Provider: Monica Patterson Referrals: Monica Patterson, [employer] [Primary Care Provider] - Activity Restrictions/Additional Instructions: See your surgeon tomorrow Disposition Disposition: Home, Self Care Discharge Date/Time: 01/27/23 09:47
[2023-01-27] MEDS: Mag Hydrox/Al Hydrox/Simeth 30 ML UDC PO (07:22)
[2023-01-27] MEDS: 0.9% Normal Saline (1000mL) 1,000 ML 125 ML IV (07:22)
[2023-01-27] MEDS: Ondansetron 4 MG/2 ML Vial IV (07:22)
[2023-01-27 07:42] LABS: ALB/GLOB Ratio 0.8 RATIO (0.9-2.4); AST(SGOT) 19 U/L (15-37); Alanine Aminotransfer ALT/SGPT 20 U/L (13-56); Albumin, Serum 3.2 g/dL (3.2-5.0); Alkaline Phosphatase 96 U/L (45-117); Anion Gap 7 (5-15); BUN 13 mg/dL (7-18); BUN/Creat Ratio 14.8 RATIO (10-20); Calcium,Total 8.5 mg/dL (8.5-10.1); Chloride 115 mmol/L (98-107); Creatinine, Serum 0.88 mg/dL (0.55-1.02); EST Glomerular Filtration Rate 85 mL/min (>60); Est Glom Filt Rate - Afr Amer 103 mL/min (>60); Estimated Creatinine Clearance 86.59 ml/min; Globulin 4.1 g/dL (2.2-4.2); Glucose 96 mg/dL (74-106); Lipase 21 U/L (13-75); Potassium 3.3 mmol/L (3.5-5.1); Protein, Total 7.3 g/dL (6.4-8.2); Sodium Level 141 mmol/L (136-145)
[2023-01-27 07:45] LABS: Absolute Lymphocyte Count 1.84 X10^3/uL (0.83-4.51); Absolute Neutrophil Count 3.4 X10^3/uL (2.0-7.7); Basophil# 0.02 X10^3/uL; Basophil% 0.3 % (0-1); Eosinophil# 0.15 X10^3/uL; Eosinophils% 2.6 % (0-5); Hematocrit 38.2 % (37-47); Hemoglobin 12.1 g/dL (12.0-15.0); Lymphocyte # 1.84 X10^3/ul (0.83-4.51); Lymphocyte % 31.6 % (19-41); Mean Corp Hgb Conc 31.7 g/dL (32-36); Mean Corpuscular Hgb 24.4 pg (27.0-32.0); Mean Corpuscular Volume 77.2 fL (81-99); Mean Platelet Vol. 8.8 fl (6.2-12.0); Monocyte# 0.45 X10^3/uL; Monocyte% 7.7 % (0-10); NRBC Flagged by Analyzer 0 % (0-5); Neutrophil # 3.35 X10^3/uL (2.7-7.7); Neutrophil % 57.6 % (47-70); Platelet Count 432 K/mm3 (150-450); RBC Distribution Width CV 14.4 % (11.6-14.6); RBC Distribution Width SD 39.9 fl (35.1-43.9); Red Blood Count 4.95 M/mm3 (4.2-5.4); White Blood Count 5.8 K/mm3 (4.4-11.0)
[2023-01-27 07:49] VITALS: BP 131/76; PULSE 67; RESP 24; O2SAT 100
[2023-01-27] MEDS: Pantoprazole Sodium 40 MG in 0.9% Normal Saline (100mL MB+) 100 ML 330 MG IV (07:49)
[2023-01-27 08:11] LABS: Mucous, Urine 0 SEEN /hpf (<or=2+); Red Blood Cells-Urine 0 SEEN /hpf (0-5)
[2023-01-27 08:13] LABS: Color, Urine Yellow (Yellow); Glucose, Dipstick Normal (Normal); Ketone-Dipstick Negative (Negative); Leukocyte Esterase-Dipstick 100 /ul (Negative); Nitrite-Dipstick Negative (Negative); Occult Blood-Urine 25 /ul (Negative); Protein-Dipstick Negative (Negative); Urine Bilirubin Dipstick Negative (Negative); Urine Clarity Clear (Clear); Urine Urobilinogen Normal (Normal)
[2023-01-27 08:33] LABS: Bacteria 1+ /hpf (None Seen); Squamous Epithelial Cells - UA 0-5 SEEN /hpf (5-10); White Blood Cells 5-10 SEEN /hpf (0-5)
[2023-01-27 08:35] LABS: Internal QC Validated? YES +Cl - CLEAR BKGD; Pregnancy, Urine Negative Negative; Record Kit Lot#,Urine Preg 667200
--- NOTE | 2023-01-27 08:41 | RAD_ITS ---
STUDY: X-RAY CHEST REASON FOR EXAM: Female, 23 years old. Chest pain TECHNIQUE: Single AP portable view of the chest. COMPARISON: 01/20/2023 FINDINGS: The lungs are clear and expanded. There is no demonstrated pleural abnormality. Normal size heart. Normal mediastinum and dennis. Normal visualized pulmonary arteries. Normal visualized aortic arch and descending thoracic aorta. Normal visualized thoracic spine. Normal visualized ribs, clavicles, and shoulders. There is no demonstrated abnormality of the visualized soft tissue structures of the upper abdomen. RAD/Chest 1 View (Portable) IMPRESSION: No acute pulmonary process Electronically Signed: Garrett Clemons MD at 9:20 EDT ,
--- NOTE | 2023-01-27 08:41 | CT_ITS ---
STUDY: CT ABDOMEN AND PELVIS WITH CONTRAST REASON FOR EXAM: Female, 23 years old. Diffuse abdominal pain RADIATION DOSAGE (If Supplied By Facility): CTDIvol = ( 13.54 ) mGy, DLP = ( 670.94 ) mGycm TECHNIQUE: Transaxial images were obtained from the dome of the diaphragm to the symphysis pubis without oral contrast. IV 100mL [id number]-300 was administered. Sagittal and coronal images were reconstructed. Individualized dose optimization techniques were used for this CT. COMPARISON: 12/26/2022 FINDINGS: The visualized lung bases are unremarkable. The visualized portions of the heart are within normal limits. Normal liver. Normal gallbladder and extrahepatic biliary system. Normal spleen. Normal pancreas. Normal bilateral adrenal glands. Normal right kidney. Normal left kidney. Normal visualized stomach. Nondistended fluid-filled distal small bowel loops and also noted in the ascending colon consistent with mild enteritis. The appendix is visualized and appears normal. Appendix seen on coronal recon images 36 through 47 Normal abdominal aorta. Normal inferior vena cava. Normal retroperitoneum. Normal urinary bladder. Normal visualized uterus. Normal abdominal wall. Normal osseous structures. CT/Abdomen/Pelvis W IV Cont ONLY IMPRESSION: Persistent mild enteritis No suspicious solid organ abnormality No free intraperitoneal fluid, air, or suspicious adenopathy, normal appendix visualized Electronically Signed: Garrett Clemons MD at 9:20 EDT ,
[2023-01-27] MEDS: Morphine 4 MG/ML Syringe IV (09:21)
[2023-01-27 09:45] VITALS: BP 114/72; PULSE 67; RESP 16; O2SAT 99
== END 2023-01-27 09:47 | disposition home or self-care (01) ==
PROVIDERS: Emergency Provider Emergency Medicine; PCP Nurse Practitioner Family; Visit Provider Emergency Medicine
DX: R10.11 Right upper quadrant pain (principal); F20.9 Schizophrenia, unspecified; R10.13 Epigastric pain; J45.909 Unspecified asthma, uncomplicated; G43.909 Migraine, unspecified, not intractable, without status migrainosus; Z79.899 Other long term (current) drug therapy; Z79.3 Long term (current) use of hormonal contraceptives; K21.9 Gastro-esophageal reflux disease without esophagitis; F32.A Depression, unspecified; F17.290 Nicotine dependence, other tobacco product, uncomplicated; R11.0 Nausea
CPT/HCPCS: 96361; 96374; 96375; 71045; 74177; 80053; 81001; 81025; 83605; 83690; 85025; 99285; J7030; Q9967; A4216; J2405

== ENCOUNTER 2023-01-29 17:02 | Emergency (ER) | payer MEDICAID, SELFPAY ==
[2023-01-29 17:03] VITALS: BP 118/80; PULSE 94; RESP 16; TEMP 36.6; O2SAT 100; BMI 28.0
--- NOTE | 2023-01-29 17:49 | CT_ITS ---
INDICATION: epigastric pain, recent EGD yesterday EXAMINATION: CT ABDOMEN AND PELVIS WITHOUT CONTRAST - CT Abdomen And Pelvis W/O Contrast Injection TECHNIQUE: Helically acquired images were obtained of the abdomen and pelvis without oral or IV contrast. A radiation dose optimization technique was used for this scan. IV Contrast dosage and agent: None. Oral contrast: None. RADIATION DOSAGE (If Supplied By Facility): CTDIvol = ( 8.19 ) mGy, DLP = ( 385.87 ) mGycm COMPARISON: 01/27/2023 FINDINGS: LOWER CHEST: Lung bases are clear. No cardiomegaly or pericardial effusion. LIVER: The liver is normal in size, shape, and attenuation. No focal mass. GALLBLADDER AND BILIARY TREE: The gallbladder is normally distended. No gallstones. No gallbladder wall thickening or edema. No intra- or extrahepatic biliary ductal dilation. PANCREAS: No focal cystic or solid mass. SPLEEN: Normal size without focal cystic or solid mass. ADRENAL GLANDS: No nodules. KIDNEYS AND URETERS: Normal renal size and position. No hydronephrosis or nephrolithiasis. PERITONEUM: No ascites or free air. No other fluid collection. BOWEL: The stomach is unremarkable. Normal caliber small bowel. No obstruction. No colonic wall thickening or inflammatory changes. Normal appendix. LYMPH NODES: No enlarged mesenteric or retroperitoneal lymph nodes. VESSELS: Aorta is non-dilated. URINARY BLADDER: Unremarkable. REPRODUCTIVE ORGANS: Uterus and ovaries are normal. ABDOMINAL WALL: No discrete abdominal or pelvic wall hernia. BONES: No acute or suspicious osseous abnormality. CT/Abdomen/Pelvis without Cont IMPRESSION: Negative CT abdomen and pelvis without oral or IV contrast. No evidence of enteritis as suggested on the prior exam. Electronically Signed: Vidal Michelle MD at 18:27 EDT ,
--- NOTE | 2023-01-29 17:51 | EDS_ITS ---
HPI History of Present Illness Chief Complaint: Abd Pain Informant: patient Onset/Context/Timing Onset: Today Narrative Narrative: Presents secondary to recurrent nausea and vomiting with upper abdominal pain. She had a EGD performed yesterday by Dr. David. She only had mild pain last evening and was able to tolerate p.o. She went to urgent care today because she was not feeling well. They wanted to check a urinalysis to monitor for dehydration. When she drank water she got upper abdominal pain along with nausea and vomiting. She states she feels like her whole body is burning. She states the EGD showed inflammation in her stomach and some dried blood. She was given a new medication and is to follow-up on Saturday. She is currently on diclofenac and pantoprazole. She does not know what new medication she was given yesterday. [facility] Medical History Anxiety Asthma Depression Diarrhea Endometriosis Gastroparesis GERD (gastroesophageal reflux disease) Migraine OCD (obsessive compulsive disorder) Pelvic pain POTS (postural orthostatic tachycardia syndrome) PTSD (post-traumatic stress disorder) Schizophrenia Tachycardia Upper abdominal pain Home Medications albuterol sulfate 90 mcg/actuation aerosol inhaler 2 puff inhalation PRN PRN Wheezing 06/14/21 [History Last Taken Unknown] epinephrine 0.3 mg/0.3 mL injection, auto-injector 1 mg IM PRN PRN Allergic Reaction 06/14/21 [History Last Taken Unknown] diclofenac sodium 75 mg tablet,delayed release 75 mg PO BID PRN pain 01/04/22 [History Last Taken Unknown] medroxyprogesterone 150 mg/mL intramuscular suspension (Depo-Provera) 150 mg IM .q10w 01/04/22 [History Last Taken Unknown] prazosin 1 mg capsule 2 mg PO DAILY 03/19/22 [History Last Taken Unknown] trazodone 50 mg tablet 50 mg PO QHS 03/19/22 [History Last Taken Unknown] metoclopramide HCl 5 mg tablet 2.5 mg (1/2 x 5 mg) PO QAC #15 tabs 08/08/22 [Rx Last Taken Unknown] ondansetron 4 mg disintegrating tablet 4 mg PO Q8H PRN PRN Nausea #10 tabs 09/07/22 [Rx Last Taken Unknown] pantoprazole 40 mg tablet,delayed release 40 mg PO BID #60 tabs 12/03/22 [Rx Last Taken Unknown] naproxen 500 mg tablet (Naprosyn) 500 mg PO BID PRN pain #20 tabs 12/18/22 [Rx Last Taken Unknown] aripiprazole 5 mg tablet 5 mg PO DAILY 01/16/23 [History Last Taken Unknown] fluoxetine 40 mg capsule 40 mg PO DAILY 01/16/23 [History Last Taken Unknown] spironolactone 25 mg tablet 25 mg PO DAILY #30 tabs 01/16/23 [Rx Last Taken Unknown] topiramate 100 mg tablet 100 mg PO QHS 01/16/23 [History Last Taken Unknown] topiramate 25 mg tablet 25 mg PO DAILY 01/16/23 [History Last Taken Unknown] promethazine 25 mg tablet 25 mg PO TID PRN nausea and vomiting #14 tabs 01/29/23 [Rx Last Taken Unknown] Allergy/AdvReac Type Severity Reaction Status Date / Time gabapentin Allergy Rash Verified 01/27/23 06:55 glycerin [From Nasal-Ease] Allergy Swelling Verified 01/27/23 06:55 methylcellulose Allergy Swelling Verified 01/27/23 06:55 [From Nasal-Ease] sertraline [From Zoloft] Allergy Anaphylaxis Verified 01/27/23 06:55 silicone Allergy Rash Verified 01/27/23 06:55 sodium chloride Allergy Swelling Verified 01/27/23 06:55 [From Nasal-Ease] zinc [From Nasal-Ease] Allergy Swelling Verified 01/27/23 06:55 lactose AdvReac Upset Verified 01/27/23 06:55 Stomach Family History Father Anxiety Depression Asthma Hypertension Mother Asthma Diabetes Anxiety Depression CAD (coronary artery disease) Myocardial infarction, Onset Age: 42 Brother Oleksandr-Danlos syndrome Grandmother Myocardial infarction, Onset Age: 41 Grandfather Myocardial infarction, Onset Age: 38 Surgical History History of colonoscopy History of esophagogastroduodenoscopy (EGD) Hx of laparoscopy Social History household members: none Smoking Status: Current every day smoker tobacco type: e-cigarettes alcohol intake: current alcohol intake frequency: holidays/special occasions only substance use type: does not use caffeine: Yes Type: carbonated beverages, coffee and tea ROS ROS ED Constitutional Constitutional ED: Denies chills or fever(s) Eyes Eyes: Denies discharge from eye(s) ENT ENT ED: Denies discharge from eye(s), rhinorrhea or sore throat Cardiovascular Cardiovascular: Denies chest pain or palpitations Respiratory/Chest Respiratory/Chest: Denies cough or dyspnea Gastrointestinal Gastrointestinal: Reports abdominal pain, nausea and vomiting; Denies diarrhea Genitourinary Genitourinary ED: Denies difficulty urinating or dysuria Musculoskeletal Musculoskeletal: Denies back pain or extremity pain Integumentary Denies Abrasions or rash Neurologic Neurologic: Reports weakness; Denies headache(s) Psychiatric Psychiatric: Denies anxiety or depression Allergic/Immunologic Allergic/Immunologic ED: Denies lip swelling or urticaria EXAM Physical Exam Const Vital Signs: 01/29/23 17:03 Temperature 97.9 F Temperature Source Temporal Pulse Rate 94 Respiratory Rate 16 Blood Pressure 118/80 Blood Pressure Mean 92 Pulse Ox 100 Oxygen Delivery Method Room Air Positive well nourished and well developed General Appearance ED: well developed HEENT Reports normocephalic and head/scalp atraumatic Eyes PERRL and EOMs intact bilaterally Neck supple Chest Wall inspection of chest normal and palpation of chest normal Resp normal respiratory effort and clear to auscultation bilaterally Cardio regular rate and regular rhythm GI GI Narrative: Abdomen soft with epigastric tenderness palpation. No guarding or rebound. Palpation: soft Extremity normal to inspection Neuro oriented x3 and no sensory deficits noted Sensorium / Orientation: alert Motor Exam: strength 5/5 throughout Psych mental status grossly normal Skin no rashes or lesions noted MDM MDM MDM Narrative Medical decision making narrative: IV line established. Labwork obtained to evaluate for leukocytosis, anemia, and electrolyte derangement. IV fluids given along with morphine and Zofran. Given her recent EGD and increased pain CT scan of abdomen pelvis obtained to ensure no perforation. Lab Data Labs: Laboratory Results - last 24 hr 01/29/23 18:05 WBC 6.9 RBC 5.17 Hgb 12.7 Hct 39.4 MCV 76.2 L MCH 24.6 L MCHC 32.2 RDW Std Deviation 39.3 RDW Coeff of Anoop 14.3 Plt Count 465 H MPV 8.7 Immature Gran % (Auto) 0.300 Neut % (Auto) 60.0 Lymph % (Auto) 30.7 [place] % (Auto) 8.1 Eos % (Auto) 0.6 Baso % (Auto) 0.3 Absolute Neuts (auto) 4.1 Absolute Lymphs (auto) 2.12 Nucleated RBC % 0 Sodium 139 Potassium 3.3 L Chloride 111 H Carbon Dioxide 22.0 Anion Gap 6 BUN 11 Creatinine 0.89 Estim Creat Clear Calc 85.62 Est GFR (MDRD) Af Amer 102 Est GFR (MDRD) Non-Af 84 BUN/Creatinine Ratio 12.3 Glucose 80 Calcium 9.3 Total Bilirubin 0.40 Direct Bilirubin 0.12 AST 14 L ALT 21 Alkaline Phosphatase 103 Total Protein 7.9 Albumin 3.5 Globulin 4.4 H Lipase 20 Serum , Qual NEGATIVE Radiography Diagnostic Testing: Clinical Impression(s) from Imaging Studies Abdomen/Pelvis CT 01/29/23 17:49 IMPRESSION: Negative CT abdomen and pelvis without oral or IV contrast. No evidence of enteritis as suggested on the prior exam. Electronically Signed: Vidal Michelle MD at 18:27 EDT , Treatment and Re-Evaluation :: CBC was white count 6.9 with a hemoglobin of 12.7. Platelet count is slightly elevated at 465,000. Chemistry studies reveal slightly low potassium at 3.3. This is consistent with her prior values. LFTs are unremarkable. Lipase is normal. test negative. CT scan of the flank reveals no acute abnormalities. No evidence of perforation. On repeat evaluation patient resting more comfortably. She is already started the new medication the Dr. David gave her. I will write her for some Phenergan to have at home as well. She will follow-up with his office next Saturday as scheduled. Discharge Plan Triage Chief Complaint: Abd Pain Other Complaint: Dizziness Nausea/Vomiting ED Provider: Sridevi Varela Dx/Rx/DC Orders Clinical Impression: Gastritis, Vomiting Instructions: ED Gastritis (Adult), ED Vomiting (Adult) Prescriptions: New promethazine 25 mg tablet 25 mg PO TID PRN (Reason: nausea and vomiting) Qty: 14 0RF No Action diclofenac sodium 75 mg tablet,delayed release (DR/EC) 75 mg PO BID PRN (Reason: pain) topiramate 100 mg tablet 100 mg PO QHS Rx Instructions: give with 25 mg tablet to = 125 mg medroxyprogesterone [Depo-Provera] 150 mg/mL suspension 150 mg IM .q10w Patient Comments: INJECT 1ML INTRAMUSCULARILY EVERY 12 WEEKS metoclopramide HCl 5 mg tablet 2.5 mg PO QAC Qty: 15 2RF Rx Instructions: administer 30 minutes before meals aripiprazole 5 mg tablet 5 mg PO DAILY fluoxetine 40 mg capsule 40 mg PO DAILY topiramate 25 mg tablet 25 mg PO DAILY Patient Comments: take 1 tablet by mouth at bedtime Rx Instructions: give with 100 mg tablet to = 125 mg spironolactone 25 mg tablet 25 mg PO DAILY Qty: 30 11RF epinephrine 0.3 mg/0.3 mL auto-injector 1 mg IM PRN PRN (Reason: Allergic Reaction) Patient Comments: INJECT INTO THE MUSCLE NEEDED FOR ANAPHYLAXIS REACTION albuterol sulfate 90 mcg/actuation HFA aerosol inhaler 2 puff INHALATION PRN PRN (Reason: Wheezing) Patient Comments: inhale 2 puffs by mouth and INTO THE LUNGS every 4 hours if neede... (REFER TO PRESCRIPTION NOTES). trazodone 50 mg tablet 50 mg PO QHS Patient Comments: TAKE 1 OR 2 TABLETS BY MOUTH AT BEDTIME prazosin 1 mg capsule 2 mg PO DAILY Patient Comments: take 1 capsule by mouth twice a day ondansetron 4 mg tablet,disintegrating 4 mg PO Q8H PRN PRN (Reason: Nausea) Qty: 10 0RF naproxen [Naprosyn] 500 mg tablet 500 mg PO BID PRN (Reason: pain) Qty: 20 0RF pantoprazole 40 mg tablet,delayed release (DR/EC) 40 mg PO BID Qty: 60 3RF Primary Care Provider: Monica Patterson Referrals: Meet David MD [Med Staff - Active Staff] - Keep [facility] appointment Monica Patterson [employer]ANCE [employer]INEER-[employer] [Primary Care Provider] - Disposition Disposition: Home, Self Care
[2023-01-29 18:10] LABS: Absolute Lymphocyte Count 2.12 X10^3/uL (0.83-4.51); Absolute Neutrophil Count 4.1 X10^3/uL (2.0-7.7); Basophil# 0.02 X10^3/uL; Basophil% 0.3 % (0-1); Eosinophil# 0.04 X10^3/uL; Eosinophils% 0.6 % (0-5); Hematocrit 39.4 % (37-47); Hemoglobin 12.7 g/dL (12.0-15.0); Lymphocyte # 2.12 X10^3/ul (0.83-4.51); Lymphocyte % 30.7 % (19-41); Mean Corp Hgb Conc 32.2 g/dL (32-36); Mean Corpuscular Hgb 24.6 pg (27.0-32.0); Mean Corpuscular Volume 76.2 fL (81-99); Mean Platelet Vol. 8.7 fl (6.2-12.0); Monocyte# 0.56 X10^3/uL; Monocyte% 8.1 % (0-10); NRBC Flagged by Analyzer 0 % (0-5); Neutrophil # 4.14 X10^3/uL (2.7-7.7); Platelet Count 465 K/mm3 (150-450); RBC Distribution Width CV 14.3 % (11.6-14.6); RBC Distribution Width SD 39.3 fl (35.1-43.9); Red Blood Count 5.17 M/mm3 (4.2-5.4); White Blood Count 6.9 K/mm3 (4.4-11.0)
[2023-01-29] MEDS: 0.9% Normal Saline (1000mL) 1,000 ML 1000 ML IV (18:15)
[2023-01-29] MEDS: Ondansetron 4 MG/2 ML Vial IV (18:16)
[2023-01-29] MEDS: Morphine 4 MG/ML Syringe IV (18:16)
[2023-01-29 18:43] LABS: Internal QC Validated? YES +Cl - CLEAR BKGD; Pregnancy, Serum, hCG Quali. NEGATIVE Negative
[2023-01-29 18:44] LABS: AST(SGOT) 14 U/L (15-37); Alanine Aminotransfer ALT/SGPT 21 U/L (13-56); Albumin, Serum 3.5 g/dL (3.2-5.0); Alkaline Phosphatase 103 U/L (45-117); Anion Gap 6 (5-15); BUN 11 mg/dL (7-18); BUN/Creat Ratio 12.3 RATIO (10-20); Bilirubin, Direct 0.12 mg/dL (0.00-0.30); Calcium,Total 9.3 mg/dL (8.5-10.1); Chloride 111 mmol/L (98-107); Creatinine, Serum 0.89 mg/dL (0.55-1.02); EST Glomerular Filtration Rate 84 mL/min (>60); Est Glom Filt Rate - Afr Amer 102 mL/min (>60); Estimated Creatinine Clearance 85.62 ml/min; Globulin 4.4 g/dL (2.2-4.2); Glucose 80 mg/dL (74-106); Lipase 20 U/L (13-75); Potassium 3.3 mmol/L (3.5-5.1); Protein, Total 7.9 g/dL (6.4-8.2); Sodium Level 139 mmol/L (136-145)
== END 2023-01-29 19:23 | disposition home or self-care (01) ==
PROVIDERS: Emergency Provider Emergency Medicine; PCP Nurse Practitioner Family; Visit Provider Emergency Medicine
DX: K29.70 Gastritis, unspecified, without bleeding (principal); F20.9 Schizophrenia, unspecified; R11.10 Vomiting, unspecified; K21.9 Gastro-esophageal reflux disease without esophagitis; J45.909 Unspecified asthma, uncomplicated; Z79.899 Other long term (current) drug therapy; F32.A Depression, unspecified; F42.9 Obsessive-compulsive disorder, unspecified; F17.290 Nicotine dependence, other tobacco product, uncomplicated
CPT/HCPCS: 74176; 80048; 80076; 83690; 84703; 85025; 96361; 96374; 96375; 99283; J7030; J2405

== ENCOUNTER 2023-02-01 11:21 | Emergency (ER) | payer MEDICAID, SELFPAY ==
[2023-02-01 11:24] VITALS: BP 140/84; PULSE 98; RESP 18; TEMP 36.8; O2SAT 100; BMI 28.8
--- NOTE | 2023-02-01 11:53 | EX.ED.DYSGE1 ---
HPI History of Present Illness Chief Complaint: Nausea/Vomiting Informant: patient and EMS Narrative Narrative: 23-year-old female arriving by EMS with chief complaint of back pain headache and nausea. This is the patient's 11th emergency department visit since the beginning of December. Patient has multiple constitutional symptoms such as fatigue nausea dizziness generalized pain headache leg swelling. Despite all these emergency department visits she was able to have a endoscopy performed several days ago. She states she was seen in the emergency department a couple days ago and was prescribed Phenergan. Since that time she states her dizziness has been worse. She states she has been slurring her words at a time. She still notes nausea. She has had a headache. She states she had a fever today. She also noticed some chest pain. She talk to her doctor's office that she was post to be there today for an appointment to follow-up on the endoscopy. She notes a pimple-like rash on her chest for the past several days. She notes tingling of her tongue face hands left lower leg. She notes urinary frequency. She was diagnosed with COVID last month. Patient is also noting a burning sensation in her body. Prehospital EKG demonstrates a sinus tachycardic rhythm with a ventricular rate of 107 bpm. [facility] Medical History Anxiety Asthma Depression Diarrhea Endometriosis Gastroparesis GERD (gastroesophageal reflux disease) Migraine OCD (obsessive compulsive disorder) Pelvic pain POTS (postural orthostatic tachycardia syndrome) PTSD (post-traumatic stress disorder) Schizophrenia Tachycardia Upper abdominal pain Home Medications albuterol sulfate 90 mcg/actuation aerosol inhaler 2 puff inhalation PRN PRN Wheezing 06/14/21 [History Last Taken Unknown] epinephrine 0.3 mg/0.3 mL injection, auto-injector 1 mg IM PRN PRN Allergic Reaction 06/14/21 [History Last Taken Unknown] diclofenac sodium 75 mg tablet,delayed release 75 mg PO BID PRN pain 01/04/22 [History Last Taken Unknown] medroxyprogesterone 150 mg/mL intramuscular suspension (Depo-Provera) 150 mg IM .q10w 01/04/22 [History Last Taken Unknown] prazosin 1 mg capsule 2 mg PO DAILY 03/19/22 [History Last Taken Unknown] trazodone 50 mg tablet 50 mg PO QHS 03/19/22 [History Last Taken Unknown] metoclopramide HCl 5 mg tablet 2.5 mg (1/2 x 5 mg) PO QAC #15 tabs 08/08/22 [Rx Last Taken Unknown] ondansetron 4 mg disintegrating tablet 4 mg PO Q8H PRN PRN Nausea #10 tabs 09/07/22 [Rx Last Taken Unknown] pantoprazole 40 mg tablet,delayed release 40 mg PO BID #60 tabs 12/03/22 [Rx Last Taken Unknown] naproxen 500 mg tablet (Naprosyn) 500 mg PO BID PRN pain #20 tabs 12/18/22 [Rx Last Taken Unknown] aripiprazole 5 mg tablet 5 mg PO DAILY 01/16/23 [History Last Taken Unknown] fluoxetine 40 mg capsule 40 mg PO DAILY 01/16/23 [History Last Taken Unknown] spironolactone 25 mg tablet 25 mg PO DAILY #30 tabs 01/16/23 [Rx Last Taken Unknown] topiramate 100 mg tablet 100 mg PO QHS 01/16/23 [History Last Taken Unknown] topiramate 25 mg tablet 25 mg PO DAILY 01/16/23 [History Last Taken Unknown] promethazine 25 mg tablet 25 mg PO TID PRN nausea and vomiting #14 tabs 01/29/23 [Rx Last Taken Unknown] potassium chloride 20 mEq tablet,extended release 40 meq (2 x 20 mEq) PO DAILY 5 days #10 tabs 02/01/23 [Rx Last Taken Unknown] Allergy/AdvReac Type Severity Reaction Status Date / Time gabapentin Allergy Rash Verified 02/01/23 11:24 glycerin [From Nasal-Ease] Allergy Swelling Verified 02/01/23 11:24 methylcellulose Allergy Swelling Verified 02/01/23 11:24 [From Nasal-Ease] sertraline [From Zoloft] Allergy Anaphylaxis Verified 02/01/23 11:24 silicone Allergy Rash Verified 02/01/23 11:24 sodium chloride Allergy Swelling Verified 02/01/23 11:24 [From Nasal-Ease] zinc [From Nasal-Ease] Allergy Swelling Verified 02/01/23 11:24 lactose AdvReac Upset Verified 02/01/23 11:24 Stomach Family History Father Anxiety Depression Asthma Hypertension Mother Asthma Diabetes Anxiety Depression CAD (coronary artery disease) Myocardial infarction, Onset Age: 42 Brother Oleksandr-Danlos syndrome Grandmother Myocardial infarction, Onset Age: 41 Grandfather Myocardial infarction, Onset Age: 38 Surgical History History of colonoscopy History of esophagogastroduodenoscopy (EGD) Hx of laparoscopy Social History household members: none Smoking Status: Current every day smoker tobacco type: e-cigarettes alcohol intake: current alcohol intake frequency: holidays/special occasions only substance use type: does not use caffeine: Yes Type: carbonated beverages, coffee and tea ROS ROS ED Constitutional Constitutional ED: Reports chills and fever(s); Denies weight loss Eyes Eyes: Reports blurry vision and change in vision; Denies diplopia ENT ENT ED: Reports sore throat; Denies ear pain or rhinorrhea Cardiovascular Cardiovascular: Reports chest pain; Denies orthopnea, palpitations or racing heartbeat Respiratory/Chest Respiratory/Chest: Reports dyspnea; Denies cough or orthopnea Gastrointestinal Gastrointestinal: Reports abdominal pain and nausea; Denies diarrhea or vomiting Genitourinary Genitourinary ED: Denies dysuria, hematuria or urinary frequency Musculoskeletal Musculoskeletal: Reports arthralgias, back pain, myalgias and neck pain Integumentary Reports rash; Denies abscess Neurologic Neurologic: Reports headache(s) and paresthesias; Denies weakness Psychiatric Psychiatric: Denies anxiety, depression, suicidal ideation or suicidal thoughts Endocrine Endocrinology: Reports polyuria; Denies polydipsia or polyphagia Allergic/Immunologic Allergic/Immunologic ED: Denies mouth swelling, tongue swelling or urticaria EXAM Physical Exam Const Vital Signs: 02/01/23 11:24 02/01/23 11:28 Temperature 98.2 F Temperature Source Oral Pulse Rate 98 Respiratory Rate 18 Respiratory Effort Normal Non-Labored Blood Pressure 140/84 H Blood Pressure Mean 102 Pulse Ox 100 Oxygen Delivery Method Room Air Positive well nourished and well developed General Appearance ED: well developed HEENT Reports normocephalic, head/scalp atraumatic and moist mucous membranes Eyes PERRL and EOMs intact bilaterally Neck no lymphadenopathy, supple and no JVD Resp normal respiratory effort and clear to auscultation bilaterally Cardio regular rate, regular rhythm and no murmurs GI normal to inspection, nondistended, normoactive bowel sounds and non-tender Palpation: soft Back/Spine no CVA tenderness and normal ROM Extremity normal to inspection General Extremety ED: Negative for edema General Extremity: Negative for edema Neuro oriented x3 and CN's II-XII intact bilaterally Sensorium / Orientation: alert Motor Exam: strength 5/5 throughout Psych mental status grossly normal Mood & Affect: Negative for depressed or tearful Skin no rashes or lesions noted and no wounds MDM MDM MDM Narrative Medical decision making narrative: White count is normal at 6.5 with hemoglobin 12.9 and platelet count of 480. Potassium is low at 3.2 and has recently been low and is in line with those other readings. Liver enzymes are negative. Lipase is normal. Urinalysis is negative with a specific gravity of 1.005. Patient remains hemodynamically stable. I do not see evidence of anything of an acute emergency. Her symptoms are very constitutional in nature and very vague many of which are unchanged over weeks. We can replace her potassium and would recommend follow-up with her primary care doctor History & Record Review Discussion w/independent historian: EMS personnel and Patient Lab Data Attestation: I reviewed the patient's lab results. Labs: Laboratory Results - last 24 hr 02/01/23 12:05 WBC 6.5 RBC 5.13 Hgb 12.9 Hct 39.9 MCV 77.8 L MCH 25.1 L MCHC 32.3 RDW Std Deviation 41.0 RDW Coeff of Anoop 14.6 Plt Count 480 H MPV 9.1 Immature Gran % (Auto) 0.300 Neut % (Auto) 61.6 Lymph % (Auto) 31.2 [place] % (Auto) 5.4 Eos % (Auto) 1.2 Baso % (Auto) 0.3 Absolute Neuts (auto) 4.0 Absolute Lymphs (auto) 2.03 Nucleated RBC % 0 Sodium 139 Potassium 3.2 L Chloride 110 H Carbon Dioxide 19.0 L Anion Gap 10 BUN 9 Creatinine 1.01 Estim Creat Clear Calc 75.45 Est GFR (MDRD) Af Amer 88 Est GFR (MDRD) Non-Af 73 BUN/Creatinine Ratio 8.9 L Glucose 103 Calcium 9.0 Total Bilirubin 0.20 AST 7 L ALT 20 Alkaline Phosphatase 100 Total Protein 8.3 H Albumin 3.7 Globulin 4.6 H Albumin/Globulin Ratio 0.8 L Lipase 29 Serum , Qual NEGATIVE Urine Color Straw Urine Clarity Clear Urine pH 6.5 Ur Specific [place] 1.005 Urine Protein Negative Urine Glucose (UA) Normal Urine Ketones Negative Urine Occult Blood Negative Urine Nitrite Negative Urine Bilirubin Negative Urine Urobilinogen Normal Ur Leukocyte Esterase Negative Urine RBC 0 SEEN Urine WBC 0 SEEN Ur Squamous Epith Cells 0 SEEN Urine Bacteria 0 SEEN Urine Mucus 0 SEEN Discharge Plan Triage Chief Complaint: Nausea/Vomiting Other Complaint: Back Chest Pain Headache ED Provider: Meet Altamirano Dx/Rx/DC Orders Clinical Impression: Paresthesia, Nausea, Hypokalemia Instructions: Hypokalemia Dc Prescriptions: New potassium chloride 20 mEq tablet extended release 40 meq PO DAILY 5 Days Qty: 10 0RF No Action diclofenac sodium 75 mg tablet,delayed release (DR/EC) 75 mg PO BID PRN (Reason: pain) topiramate 100 mg tablet 100 mg PO QHS Rx Instructions: give with 25 mg tablet to = 125 mg medroxyprogesterone [Depo-Provera] 150 mg/mL suspension 150 mg IM .q10w Patient Comments: INJECT 1ML INTRAMUSCULARILY EVERY 12 WEEKS metoclopramide HCl 5 mg tablet 2.5 mg PO QAC Qty: 15 2RF Rx Instructions: administer 30 minutes before meals aripiprazole 5 mg tablet 5 mg PO DAILY fluoxetine 40 mg capsule 40 mg PO DAILY topiramate 25 mg tablet 25 mg PO DAILY Patient Comments: take 1 tablet by mouth at bedtime Rx Instructions: give with 100 mg tablet to = 125 mg spironolactone 25 mg tablet 25 mg PO DAILY Qty: 30 11RF epinephrine 0.3 mg/0.3 mL auto-injector 1 mg IM PRN PRN (Reason: Allergic Reaction) Patient Comments: INJECT INTO THE MUSCLE NEEDED FOR ANAPHYLAXIS REACTION albuterol sulfate 90 mcg/actuation HFA aerosol inhaler 2 puff INHALATION PRN PRN (Reason: Wheezing) Patient Comments: inhale 2 puffs by mouth and INTO THE LUNGS every 4 hours if neede... (REFER TO PRESCRIPTION NOTES). trazodone 50 mg tablet 50 mg PO QHS Patient Comments: TAKE 1 OR 2 TABLETS BY MOUTH AT BEDTIME prazosin 1 mg capsule 2 mg PO DAILY Patient Comments: take 1 capsule by mouth twice a day ondansetron 4 mg tablet,disintegrating 4 mg PO Q8H PRN PRN (Reason: Nausea) Qty: 10 0RF naproxen [Naprosyn] 500 mg tablet 500 mg PO BID PRN (Reason: pain) Qty: 20 0RF promethazine 25 mg tablet 25 mg PO TID PRN (Reason: nausea and vomiting) Qty: 14 0RF pantoprazole 40 mg tablet,delayed release (DR/EC) 40 mg PO BID Qty: 60 3RF Primary Care Provider: Monica Patterson Referrals: Monica Patterson, UNDER CUTTER-C [Primary Care Provider] - 3-5 Days Disposition Disposition: Home, Self Care
[2023-02-01 12:15] LABS: Bacteria 0 SEEN /hpf (None Seen); Mucous, Urine 0 SEEN /hpf (<or=2+); Red Blood Cells-Urine 0 SEEN /hpf (0-5); Squamous Epithelial Cells - UA 0 SEEN /hpf (5-10); White Blood Cells 0 SEEN /hpf (0-5)
[2023-02-01 12:21] LABS: Absolute Lymphocyte Count 2.03 X10^3/uL (0.83-4.51); Basophil# 0.02 X10^3/uL; Basophil% 0.3 % (0-1); Eosinophil# 0.08 X10^3/uL; Eosinophils% 1.2 % (0-5); Hematocrit 39.9 % (37-47); Hemoglobin 12.9 g/dL (12.0-15.0); Lymphocyte # 2.03 X10^3/ul (0.83-4.51); Lymphocyte % 31.2 % (19-41); Mean Corp Hgb Conc 32.3 g/dL (32-36); Mean Corpuscular Hgb 25.1 pg (27.0-32.0); Mean Corpuscular Volume 77.8 fL (81-99); Mean Platelet Vol. 9.1 fl (6.2-12.0); Monocyte# 0.35 X10^3/uL; Monocyte% 5.4 % (0-10); NRBC Flagged by Analyzer 0 % (0-5); Neutrophil # 4.01 X10^3/uL (2.7-7.7); Neutrophil % 61.6 % (47-70); Platelet Count 480 K/mm3 (150-450); RBC Distribution Width CV 14.6 % (11.6-14.6); Red Blood Count 5.13 M/mm3 (4.2-5.4); White Blood Count 6.5 K/mm3 (4.4-11.0)
[2023-02-01 12:23] LABS: Color, Urine Straw (Yellow); Glucose, Dipstick Normal (Normal); Ketone-Dipstick Negative (Negative); Leukocyte Esterase-Dipstick Negative /ul (Negative); Nitrite-Dipstick Negative (Negative); Occult Blood-Urine Negative /ul (Negative); Protein-Dipstick Negative (Negative); Specific Gravity, Urine 1.005 (1.002-1.030); Urine Bilirubin Dipstick Negative (Negative); Urine Clarity Clear (Clear); Urine Urobilinogen Normal (Normal); Urine pH 6.5 (5.0 - 8.0)
[2023-02-01 12:28] LABS: Internal QC Validated? YES +Cl - CLEAR BKGD; Pregnancy, Serum, hCG Quali. NEGATIVE Negative; Record Kit Lot#, Serum Preg. HCG0000667200
[2023-02-01 12:36] LABS: ALB/GLOB Ratio 0.8 RATIO (0.9-2.4); AST(SGOT) 7 U/L (15-37); Alanine Aminotransfer ALT/SGPT 20 U/L (13-56); Albumin, Serum 3.7 g/dL (3.2-5.0); Alkaline Phosphatase 100 U/L (45-117); Anion Gap 10 (5-15); BUN 9 mg/dL (7-18); BUN/Creat Ratio 8.9 RATIO (10-20); Chloride 110 mmol/L (98-107); Creatinine, Serum 1.01 mg/dL (0.55-1.02); EST Glomerular Filtration Rate 73 mL/min (>60); Est Glom Filt Rate - Afr Amer 88 mL/min (>60); Estimated Creatinine Clearance 75.45 ml/min; Globulin 4.6 g/dL (2.2-4.2); Glucose 103 mg/dL (74-106); Lipase 29 U/L (13-75); Potassium 3.2 mmol/L (3.5-5.1); Protein, Total 8.3 g/dL (6.4-8.2); Sodium Level 139 mmol/L (136-145)
[2023-02-01] MEDS: Acetaminophen 500 MG Tablet 1000 MG PO (13:43)
[2023-02-01 13:45] VITALS: RESP 16
== END 2023-02-01 13:47 | disposition home or self-care (01) ==
PROVIDERS: Emergency Provider Emergency Medicine; PCP Nurse Practitioner Family; Visit Provider Emergency Medicine
DX: R20.2 Paresthesia of skin (principal); F20.9 Schizophrenia, unspecified; R51.9 Headache, unspecified; E87.6 Hypokalemia; J45.909 Unspecified asthma, uncomplicated; K21.9 Gastro-esophageal reflux disease without esophagitis; F32.A Depression, unspecified; F42.9 Obsessive-compulsive disorder, unspecified; G43.909 Migraine, unspecified, not intractable, without status migrainosus; F17.290 Nicotine dependence, other tobacco product, uncomplicated; R11.0 Nausea
CPT/HCPCS: 80053; 81001; 83690; 84703; 85025; 99285; A4216

== ENCOUNTER 2023-02-04 07:58 | Emergency (ER) | payer MEDICAID, SELFPAY ==
[2023-02-04 07:59] VITALS: BP 119/67; PULSE 90; RESP 16; TEMP 36.6; O2SAT 100; BMI 28.3
--- NOTE | 2023-02-04 08:40 | CT_ITS ---
STUDY: CT BRAIN WITHOUT CONTRAST REASON FOR EXAM: Female, 23 years old. headache RADIATION DOSAGE (If Supplied By Facility): CTDIvol = ( 44.99 ) mGy, DLP = ( 762.36 ) mGycm TECHNIQUE: Transaxial CT imaging of the brain was performed without administration of intravenous contrast material. Individualized dose optimization techniques were used for this CT. COMPARISON: Comparison is made with prior study dated September 26, 2022. FINDINGS: Normal soft tissue structures. Normal calvarium. Normal size ventricles and extra-axial spaces for the patient''s age. Normal white matter tracts of the cerebral hemispheres. Normal basal ganglia and thalami. Normal brainstem. Normal cerebellum. There is no intracranial hemorrhage. There are no findings of an acute ischemic infarction. Normal visualized paranasal sinuses. CT/Brain/Head without Contrast IMPRESSION: Normal unenhanced CT scan of the brain. Electronically Signed: Eugenio Weathers MD at 10:02 EDT ,
--- NOTE | 2023-02-04 08:59 | EX.ED.DYSGE1 ---
HPI History of Present Illness Chief Complaint: General Illness Informant: patient Narrative Narrative: Patient is a 23-year-old female presenting for feeling off for the past few weeks, 5 days of right-sided headache and now developing visual and auditory hallucinations. Patient has history of anxiety, depression, bipolar disorder, schizophrenia, OCD, PTSD, migraines, hypertension and gastroparesis. She notes that she has been compliant with her Abilify and follows with the counseling center. She was seen at [facility] emergency room yesterday as well as our emergency room 2 days ago for GI complaints, headache, generalized malaise but the hallucinations are new complaints. Patient also reports that she recently was started on 2 new medications, promethazine which she has since stopped as well as spironolactone for blood pressure. She stopped taking it today. She did start taking Coreg today and notes that she felt fine at 5 AM when she took the medicine however shortly after that she started have these sensations and called EMS. EMS report states that patient was complaining of blurred vision in addition to auditory and visual hallucinations for the past few days. She currently does have a alarm security or surveillance monitor that she is wearing which was prescribed by her assembler tester. Denies any HI or SI. Patient goes on to tell me that she has been having headache on the right side of her head that is over her forehead and moves to the back of her head. It started as a dull headache. She has been having ongoing nausea and vomiting whenever she tries to eat or drink anything. She had COVID 1 month ago. She had a fever of 100.1 3 days ago. She has had urinary frequency. Her last bowel movement 2 days ago she states was very large and hard and she did have some bleeding associated with it but attributes that to hemorrhoids. She has been doing with left upper quadrant abdominal pain which is radiating. She also notes that over the past few days she has not been sleeping because she wakes up shaking and gasping for air. She states she is been more forgetful and uses example of she sent a text message this morning but time and later forgot she had sent it. She notes that she has been seeing things, on 3 days ago she saw a woman sitting on her boyfriend's bed that was not there. She has heard what sounds like a man mumbling when she knows no one is there. Today she heard cabinets closing when they were not closing. She does tell me that she believes in ghost but is not sure if this is related to the Closing. She also states that when she looks at things such as cabinets they seem to be moving a little bit. She is currently not experiencing the symptoms. She reports she has had some hallucinations in the past but is vague about this. Besides hallucinations she has been complained of these other issues for the past few days on her prior work-ups. She does tell me that she has had some paresthesias to her left face over the past few days as well. This is again is not new. Her last menstrual period is unknown as she is on Depo-Provera shot. She has been having some spotting. [facility] Medical History Anxiety Asthma Depression Diarrhea Endometriosis Gastroparesis GERD (gastroesophageal reflux disease) Migraine OCD (obsessive compulsive disorder) Pelvic pain POTS (postural orthostatic tachycardia syndrome) PTSD (post-traumatic stress disorder) Schizophrenia Tachycardia Upper abdominal pain Home Medications albuterol sulfate 90 mcg/actuation aerosol inhaler 2 puff inhalation PRN PRN Wheezing 06/14/21 [History Last Taken Unknown] epinephrine 0.3 mg/0.3 mL injection, auto-injector 1 mg IM PRN PRN Allergic Reaction 06/14/21 [History Last Taken Unknown] diclofenac sodium 75 mg tablet,delayed release 75 mg PO BID PRN pain 01/04/22 [History Last Taken Unknown] medroxyprogesterone 150 mg/mL intramuscular suspension (Depo-Provera) 150 mg IM .q10w 01/04/22 [History Last Taken Unknown] prazosin 1 mg capsule 2 mg PO DAILY 03/19/22 [History Last Taken Unknown] trazodone 50 mg tablet 50 mg PO QHS 03/19/22 [History Last Taken Unknown] metoclopramide HCl 5 mg tablet 2.5 mg (1/2 x 5 mg) PO QAC #15 tabs 08/08/22 [Rx Last Taken Unknown] ondansetron 4 mg disintegrating tablet 4 mg PO Q8H PRN PRN Nausea #10 tabs 09/07/22 [Rx Last Taken Unknown] pantoprazole 40 mg tablet,delayed release 40 mg PO BID #60 tabs 12/03/22 [Rx Last Taken Unknown] naproxen 500 mg tablet (Naprosyn) 500 mg PO BID PRN pain #20 tabs 12/18/22 [Rx Last Taken Unknown] aripiprazole 5 mg tablet 5 mg PO DAILY 01/16/23 [History Last Taken Unknown] fluoxetine 40 mg capsule 40 mg PO DAILY 01/16/23 [History Last Taken Unknown] spironolactone 25 mg tablet 25 mg PO DAILY #30 tabs 01/16/23 [Rx Last Taken Unknown] topiramate 100 mg tablet 100 mg PO QHS 01/16/23 [History Last Taken Unknown] topiramate 25 mg tablet 25 mg PO DAILY 01/16/23 [History Last Taken Unknown] promethazine 25 mg tablet 25 mg PO TID PRN nausea and vomiting #14 tabs 01/29/23 [Rx Last Taken Unknown] potassium chloride 20 mEq tablet,extended release 40 meq (2 x 20 mEq) PO DAILY 5 days #10 tabs 02/01/23 [Rx Last Taken Unknown] carvedilol 6.25 mg tablet (Coreg) 6.25 mg PO BID #60 tabs 02/02/23 [Rx Last Taken Unknown] Allergy/AdvReac Type Severity Reaction Status Date / Time gabapentin Allergy Rash Verified 02/04/23 08:02 glycerin [From Nasal-Ease] Allergy Swelling Verified 02/04/23 08:02 methylcellulose Allergy Swelling Verified 02/04/23 08:02 [From Nasal-Ease] sertraline [From Zoloft] Allergy Anaphylaxis Verified 02/04/23 08:02 silicone Allergy Rash Verified 02/04/23 08:02 sodium chloride Allergy Swelling Verified 02/04/23 08:02 [From Nasal-Ease] zinc [From Nasal-Ease] Allergy Swelling Verified 02/04/23 08:02 lactose AdvReac Upset Verified 02/04/23 08:02 Stomach Family History Father Anxiety Depression Asthma Hypertension Mother Asthma Diabetes Anxiety Depression CAD (coronary artery disease) Myocardial infarction, Onset Age: 42 Brother Oleksandr-Danlos syndrome Grandmother Myocardial infarction, Onset Age: 41 Grandfather Myocardial infarction, Onset Age: 38 Surgical History History of colonoscopy History of esophagogastroduodenoscopy (EGD) Hx of laparoscopy Social History household members: none Smoking Status: Current every day smoker tobacco type: e-cigarettes alcohol intake: current alcohol intake frequency: holidays/special occasions only substance use type: does not use caffeine: Yes Type: carbonated beverages, coffee and tea ROS ROS ED Constitutional Constitutional ED: Reports chills and fever(s) Eyes Eyes: Reports blurry vision and diplopia ENT ENT ED: Denies rhinorrhea or sore throat Cardiovascular Cardiovascular: Denies chest pain or palpitations Respiratory/Chest Respiratory/Chest: Reports dyspnea; Denies cough Gastrointestinal Gastrointestinal: Reports abdominal pain, constipation, nausea and vomiting Genitourinary Genitourinary ED: Reports urinary frequency; Denies dysuria Musculoskeletal Musculoskeletal: Denies arthralgias or myalgias Integumentary Reports rash Neurologic Neurologic: Reports headache(s); Denies paresthesias or weakness Psychiatric Psychiatric: Reports anxiety; Denies suicidal ideation or suicidal thoughts Hematologic/Lymphatic Hematologic/Lymphatic: Denies easy bruising EXAM Physical Exam Const Vital Signs: 02/04/23 07:59 02/04/23 09:04 02/04/23 11:24 Temperature 97.9 F Temperature Source Temporal Pulse Rate 90 60 Respiratory Rate 16 Respiratory Effort Normal Non-Labored Respiratory Pattern Normal Blood Pressure 119/67 118/74 Blood Pressure Mean 84 88 Pulse Ox 100 100 Oxygen Delivery Method Room Air Positive well nourished and well developed General Appearance ED: well developed and NAD HEENT Reports TM's clear and dry mucous membranes Tympanic Membrane ED: Yes TM's clear Mouth ED: Yes dry mucous membranes Mouth: dry mucous membranes Eyes PERRL and EOMs intact bilaterally Eyes Narrative: No nystagmus on exam. Neck supple and no JVD Neck Narrative: No nuchal rigidity Chest Wall inspection of chest normal and palpation of chest normal Resp normal respiratory effort and clear to auscultation bilaterally Cardio regular rate, regular rhythm and no murmurs GI normal to inspection, nondistended, normoactive bowel sounds and non-tender Back/Spine no CVA tenderness Extremity normal to inspection General Extremety ED: Negative for edema General Extremity: Negative for edema Neuro oriented x3 and CN's II-XII intact bilaterally Neuro Narrative: Subjective paresthesias to the left face but sensation is in tact. Sensorium / Orientation: alert Motor Exam: strength 5/5 throughout; Negative for general weakness Psych cooperative, affect normal and speech normal Psych Narrative: Patient states she feels like she is stuttering but is not. Attitude: calm Activity / Motor Behavior: appropriate eye contact Mood & Affect: anxious Thought Process: normal thought process Thought Content: hallucination(s) Positive for auditory (None currently) and visual (None currently) Attention / Concentration: attention grossly intact Memory / Cognition: memory grossly intact Insight: insight good Judgement: judgement good Skin no rashes or lesions noted and no wounds MDM MDM MDM Narrative Medical decision making narrative: Patient is evaluated for a week of multiple complaints that have previously been worked up with blood work and a CT of her abdomen and pelvis. She is now complaining of some auditory visual hallucinations. I do question if her symptoms are psychiatric in nature/somatic. Outside records from [facility] reviewed from yesterday which show a stable CBC with no leukocytosis or anemia, urinalysis which is normal and a negative test. CMP showed creatinine of 1.03 but otherwise was normal and her TSH was normal at 3.18. CT of the abdomen pelvis from 01/29 showed no acute process. This was without contrast. She does not have meningeal signs and this is not a thunderclap headache. Low suspicion for subarachnoid hemorrhage. Will obtain a CT of the brain given her neurologic symptoms as well as the headache to look for any space-occupying lesion. Low suspicion for stroke given patient's age. She is PE RC negative a low risk for clotting. Low suspicion for pulmonary emboli as a cause of her shortness of breath or dural venous thrombosis as a cause of her headache. I do not think she requires further MRI or MRV at this time. Physical exam is benign but will obtain labs to make sure there is no acute change and also social work consult as I again suspect this is more psychiatric in nature. Patient's work-up is largely negative. She has a very mild microcytic anemia. Her hemoglobin does appear baseline. Her creatinine is mildly above her baseline at 1.06 (baseline is 0.88). Is given IV fluids. Clinically she does appear mildly dehydrated. Counseled to increase her fluid intake. Is then given a dose of Toradol for headache. Patient continues to complain of headache but would like to be discharged as she has appointment to follow-up with Dr. David's office from her endoscopy. She is evaluated by social work who encouraged her to follow-up with the counseling center and discussed coping techniques. I did discuss with her that some of her symptoms might be associated with the new Coreg. Counseled holding it for couple days until the spironolactone can get out of her symptoms and the possibly starting an as half dose so her body can get used to it is does see that a lot of her issues are associated with medication side effects/intolerances. She verbalizes agreement to this. She will continue to follow-up outpatient with cardiology as well. At this time I do not think she requires admission or emergent neurologic further specialist consult for her symptoms. Patient discharged home in stable condition. Patient is having psychiatric symptoms including hallucinations however she appears to have capacity and able to care for self. I do not think she requires emergent or involuntary psychiatric evaluation at this time. Lab Data Labs: Laboratory Results - last 24 hr 02/04/23 09:02 WBC 7.3 RBC 4.84 Hgb 11.9 L Hct 37.4 MCV 77.3 L MCH 24.6 L MCHC 31.8 L RDW Std Deviation 40.9 RDW Coeff of Anoop 14.7 H Plt Count 461 H MPV 8.8 Immature Gran % (Auto) 0.300 Neut % (Auto) 66.1 Lymph % (Auto) 24.5 [place] % (Auto) 7.5 Eos % (Auto) 1.2 Baso % (Auto) 0.4 Absolute Neuts (auto) 4.9 Absolute Lymphs (auto) 1.80 Nucleated RBC % 0 Sodium 144 Potassium 4.0 Chloride 116 H Carbon Dioxide 23.0 Anion Gap 5 BUN 12 Creatinine 1.06 H Estim Creat Clear Calc 71.89 Est GFR (MDRD) Af Amer 83 Est GFR (MDRD) Non-Af 69 BUN/Creatinine Ratio 11.3 Glucose 103 Calcium 8.8 Total Bilirubin 0.20 AST 15 ALT 19 Alkaline Phosphatase 94 Total Protein 7.2 Albumin 3.3 Globulin 3.9 Albumin/Globulin Ratio 0.8 L Lipase 22 Urine Color Yellow Urine Clarity Clear Urine pH 7.0 Ur Specific [place] 1.005 Urine Protein Negative Urine Glucose (UA) Normal Urine Ketones Negative Urine Occult Blood Negative Urine Nitrite Negative Urine Bilirubin Negative Urine Urobilinogen Normal Ur Leukocyte Esterase Negative Urine RBC 0 SEEN Urine WBC 0 SEEN Ur Squamous Epith Cells 0 SEEN Urine Bacteria 0 SEEN Urine Mucus 0 SEEN Urine Test Negative Radiography Chest X-Ray - ED: 2 View, Read by ED Physician, Read by Radiologist and No Acute Disease Diagnostic Testing: Clinical Impression(s) from Imaging Studies Brain CT 02/04/23 08:40 IMPRESSION: Normal unenhanced CT scan of the brain. Electronically Signed: Eugenio Weathers MD at 10:02 EDT , Chest X-Ray 02/04/23 09:33 IMPRESSION: Normal x-ray examination of the chest. Electronically Signed: Eugenio Weathers MD at 10:04 EDT , Rhythm Strip Rhythm Strip: Sinus Rhythm Rate: 63 Ectopy: None EKG Initial EKG: Attestation: I personally reviewed and interpreted this EKG as follows: Interpretation: Sinus Rhythm Comments: Normal sinus rhythm at a rate of 63 bpm Normal axis Normal intervals Normal ST segments Management Discussion w/another healthcare provider: scaffold worker/Case management Discharge Plan Triage Chief Complaint: General Illness ED Provider: Alondra Chi Dx/Rx/DC Orders Clinical Impression: Dizziness, Nausea, Headache, Microcytic anemia, Hallucinations, visual, Auditory hallucinations Instructions: ED Anemia, Iron-Deficiency (Adult), ED Dizziness, Uncertain Cause, ED Symptoms With Uncertain Cause Prescriptions: No Action diclofenac sodium 75 mg tablet,delayed release (DR/EC) 75 mg PO BID PRN (Reason: pain) topiramate 100 mg tablet 100 mg PO QHS Rx Instructions: give with 25 mg tablet to = 125 mg medroxyprogesterone [Depo-Provera] 150 mg/mL suspension 150 mg IM .q10w Patient Comments: INJECT 1ML INTRAMUSCULARILY EVERY 12 WEEKS metoclopramide HCl 5 mg tablet 2.5 mg PO QAC Qty: 15 2RF Rx Instructions: administer 30 minutes before meals aripiprazole 5 mg tablet 5 mg PO DAILY fluoxetine 40 mg capsule 40 mg PO DAILY topiramate 25 mg tablet 25 mg PO DAILY Patient Comments: take 1 tablet by mouth at bedtime Rx Instructions: give with 100 mg tablet to = 125 mg spironolactone 25 mg tablet 25 mg PO DAILY Qty: 30 11RF epinephrine 0.3 mg/0.3 mL auto-injector 1 mg IM PRN PRN (Reason: Allergic Reaction) Patient Comments: INJECT INTO THE MUSCLE NEEDED FOR ANAPHYLAXIS REACTION albuterol sulfate 90 mcg/actuation HFA aerosol inhaler 2 puff INHALATION PRN PRN (Reason: Wheezing) Patient Comments: inhale 2 puffs by mouth and INTO THE LUNGS every 4 hours if neede... (REFER TO PRESCRIPTION NOTES). trazodone 50 mg tablet 50 mg PO QHS Patient Comments: TAKE 1 OR 2 TABLETS BY MOUTH AT BEDTIME prazosin 1 mg capsule 2 mg PO DAILY Patient Comments: take 1 capsule by mouth twice a day ondansetron 4 mg tablet,disintegrating 4 mg PO Q8H PRN PRN (Reason: Nausea) Qty: 10 0RF naproxen [Naprosyn] 500 mg tablet 500 mg PO BID PRN (Reason: pain) Qty: 20 0RF promethazine 25 mg tablet 25 mg PO TID PRN (Reason: nausea and vomiting) Qty: 14 0RF potassium chloride 20 mEq tablet extended release 40 meq PO DAILY 5 Days Qty: 10 0RF pantoprazole 40 mg tablet,delayed release (DR/EC) 40 mg PO BID Qty: 60 3RF carvedilol [Coreg] 6.25 mg tablet 6.25 mg PO BID Qty: 60 0RF Rx Instructions: must administer with a meal/food Primary Care Provider: Monica Patterson Referrals: Monica Patterson, AUTOMATIC OVEN OPERATOR-C [Primary Care Provider] - Activity Restrictions/Additional Instructions: Your labs were largely normal except for very mild microcytic anemia which can be associate with iron deficiency. This can be followed up outpatient. You could start taking an [id number] iron supplement. Please discuss this with your GI doctor. Your work-up including urine, CT of your brain, blood work and chest x-ray as well as EKG were all largely normal. I would recommend stopping the new blood pressure medicine (Coreg) for couple days and then starting with a half dose (break the pill in half) until your body gets used to it. Please make sure you follow-up with the counseling center I suspect your underlying psychiatric conditions are making a lot of the symptoms worse. Disposition Disposition: Home, Self Care Discharge Date/Time: 02/04/23 11:27
[2023-02-04 09:07] LABS: Bacteria 0 SEEN /hpf (None Seen); Mucous, Urine 0 SEEN /hpf (<or=2+); Red Blood Cells-Urine 0 SEEN /hpf (0-5); Squamous Epithelial Cells - UA 0 SEEN /hpf (5-10); White Blood Cells 0 SEEN /hpf (0-5)
[2023-02-04 09:08] LABS: Color, Urine Yellow (Yellow); Glucose, Dipstick Normal (Normal); Ketone-Dipstick Negative (Negative); Leukocyte Esterase-Dipstick Negative /ul (Negative); Nitrite-Dipstick Negative (Negative); Occult Blood-Urine Negative /ul (Negative); Protein-Dipstick Negative (Negative); Specific Gravity, Urine 1.005 (1.002-1.030); Urine Bilirubin Dipstick Negative (Negative); Urine Clarity Clear (Clear); Urine Urobilinogen Normal (Normal)
[2023-02-04] MEDS: Ondansetron 4 MG/2 ML Vial IV (09:10)
[2023-02-04] MEDS: 0.9% Normal Saline (1000mL) 1,000 ML 1000 ML IV (09:10)
[2023-02-04 09:11] LABS: Hematocrit 37.4 % (37-47); Hemoglobin 11.9 g/dL (12.0-15.0); Mean Corp Hgb Conc 31.8 g/dL (32-36); Mean Corpuscular Hgb 24.6 pg (27.0-32.0); Mean Corpuscular Volume 77.3 fL (81-99); RBC Distribution Width CV 14.7 % (11.6-14.6); RBC Distribution Width SD 40.9 fl (35.1-43.9); Red Blood Count 4.84 M/mm3 (4.2-5.4); White Blood Count 7.3 K/mm3 (4.4-11.0)
[2023-02-04 09:12] LABS: Absolute Neutrophil Count 4.9 X10^3/uL (2.0-7.7); Basophil# 0.03 X10^3/uL; Basophil% 0.4 % (0-1); Eosinophil# 0.09 X10^3/uL; Eosinophils% 1.2 % (0-5); Lymphocyte % 24.5 % (19-41); Mean Platelet Vol. 8.8 fl (6.2-12.0); Monocyte# 0.55 X10^3/uL; Monocyte% 7.5 % (0-10); NRBC Flagged by Analyzer 0 % (0-5); Neutrophil # 4.85 X10^3/uL (2.7-7.7); Neutrophil % 66.1 % (47-70); Platelet Count 461 K/mm3 (150-450)
[2023-02-04 09:16] LABS: Internal QC Validated? YES +Cl - CLEAR BKGD; Pregnancy, Urine Negative Negative
[2023-02-04 09:29] LABS: ALB/GLOB Ratio 0.8 RATIO (0.9-2.4); AST(SGOT) 15 U/L (15-37); Alanine Aminotransfer ALT/SGPT 19 U/L (13-56); Albumin, Serum 3.3 g/dL (3.2-5.0); Alkaline Phosphatase 94 U/L (45-117); Anion Gap 5 (5-15); BUN 12 mg/dL (7-18); BUN/Creat Ratio 11.3 RATIO (10-20); Calcium,Total 8.8 mg/dL (8.5-10.1); Chloride 116 mmol/L (98-107); Creatinine, Serum 1.06 mg/dL (0.55-1.02); EST Glomerular Filtration Rate 69 mL/min (>60); Est Glom Filt Rate - Afr Amer 83 mL/min (>60); Estimated Creatinine Clearance 71.89 ml/min; Globulin 3.9 g/dL (2.2-4.2); Glucose 103 mg/dL (74-106); Lipase 22 U/L (13-75); Protein, Total 7.2 g/dL (6.4-8.2); Sodium Level 144 mmol/L (136-145)
--- NOTE | 2023-02-04 09:33 | RAD_ITS ---
STUDY: X-RAY CHEST REASON FOR EXAM: Female, 23 years old. Sob TECHNIQUE: PA and lateral views of the chest. COMPARISON: Comparison is made with prior study dated January 27, 2023. FINDINGS: A left-sided loop recording device is seen between the left sixth and seventh rib interspace. The lungs are clear and expanded. There is no demonstrated pleural abnormality. Normal size heart. Normal mediastinum and dennis. Normal visualized pulmonary arteries. Normal visualized aortic arch and descending thoracic aorta. Normal visualized thoracic spine. Normal visualized ribs, clavicles, and shoulders. There is no demonstrated abnormality of the visualized soft tissue structures of the upper abdomen. RAD/Chest PA and Lateral IMPRESSION: Normal x-ray examination of the chest. Electronically Signed: Eugenio Weathers MD at 10:04 EDT ,
[2023-02-04] MEDS: Ketorolac 15 MG/ML Vial IV (09:56)
--- NOTE | 2023-02-04 11:00 | CM.ED ---
Social Work SW consulted for patient support as pt is medically cleared but has had numerous visits recently for similar symptoms. Patient has had 11 ED visits in the last 2 months and ED Care is pending. SW introduced self and role to patient. Pt has had an increase in AVH in the last week. SW explored with patient hx of mental health, medications, and stressors. Pt reports two new medications but AVH is unlikely related as patient has history of schizophrenia related disorder and takes abilify. Pt reports seeing [facility] at [facility]. Pt reports 5mg abilify which dosage has remained the same for a long time. Pt also reports stressors with health and not sleeping well. Pt additionally reports anxiety and PTSD. SW reviewed the importance of self-care and the impact stress and lack of sleep can have on mental health. SW reviewed coping skills and possible calming techniques to try prior to coming to the ED. Pt reports maybe I should not have come today and SW encouraged patient to come when medically necessary but also emphasized the importance of working through coping skills as well. SW reviewed the physical aspect of anxiety and how anxiety can feel like a medical emergency but utilizing coping skills should indicate whether symptoms are improving. SW encouraged patient to make an appointment with psychiatrist in order to review medications especially if AVH worsens. Pt also reminded of crisis line with the counseling center. SW did brief screening for risk and patient does not indicate any SI/HI. Patient receptive to information and eager to go to GI follow up appointment. Pt to be discharged. Lorena Bush KNOCK UP ASSEMBLER, SHOP WORKER
[2023-02-04 11:24] VITALS: BP 118/74; PULSE 60; O2SAT 100
== END 2023-02-04 11:27 | disposition home or self-care (01) ==
PROVIDERS: Emergency Provider Emergency Medicine; PCP Nurse Practitioner Family; Visit Provider Emergency Medicine
DX: R42 Dizziness and giddiness (principal); F31.9 Bipolar disorder, unspecified; D50.9 Iron deficiency anemia, unspecified; I10 Essential (primary) hypertension; R51.9 Headache, unspecified; K64.9 Unspecified hemorrhoids; R35.0 Frequency of micturition; R11.0 Nausea; F17.210 Nicotine dependence, cigarettes, uncomplicated; R10.12 Left upper quadrant pain; F41.9 Anxiety disorder, unspecified; R44.0 Auditory hallucinations
CPT/HCPCS: 70450; 71046; 80053; 81001; 81025; 83690; 85025; 93005; 96361; 96374; 96375; 99284; J7030; A4216; J2405

== ENCOUNTER 2023-02-06 22:31 | Emergency (ER) | payer MEDICAID, SELFPAY ==
[2023-02-06 22:32] VITALS: BP 116/74; PULSE 82; RESP 15; TEMP 36.3; O2SAT 100; BMI 28.9
[2023-02-07] VITALS: BP 119/62; PULSE 85; RESP 12; O2SAT 98
[2023-02-07] MEDS: 0.9% Normal Saline (1000mL) 1,000 ML 1000 ML IV (00:01)
[2023-02-07] MEDS: Ondansetron 4 MG/2 ML Vial IV (00:01)
[2023-02-07] MEDS: Morphine 4 MG/ML Syringe IV ×2 (00:01→01:56)
[2023-02-07 00:17] LABS: Absolute Lymphocyte Count 2.83 X10^3/uL (0.83-4.51); Absolute Neutrophil Count 4.2 X10^3/uL (2.0-7.7); Basophil# 0.02 X10^3/uL; Basophil% 0.3 % (0-1); Eosinophil# 0.23 X10^3/uL; Hematocrit 38.3 % (37-47); Hemoglobin 12.1 g/dL (12.0-15.0); Lymphocyte # 2.83 X10^3/ul (0.83-4.51); Lymphocyte % 36.4 % (19-41); Mean Corp Hgb Conc 31.6 g/dL (32-36); Mean Corpuscular Hgb 24.6 pg (27.0-32.0); Mean Corpuscular Volume 77.8 fL (81-99); Mean Platelet Vol. 8.9 fl (6.2-12.0); Monocyte# 0.51 X10^3/uL; Monocyte% 6.6 % (0-10); NRBC Flagged by Analyzer 0 % (0-5); Neutrophil # 4.15 X10^3/uL (2.7-7.7); Neutrophil % 53.3 % (47-70); Platelet Count 478 K/mm3 (150-450); RBC Distribution Width CV 14.9 % (11.6-14.6); RBC Distribution Width SD 41.6 fl (35.1-43.9); Red Blood Count 4.92 M/mm3 (4.2-5.4); White Blood Count 7.8 K/mm3 (4.4-11.0)
[2023-02-07 00:28] LABS: Internal QC Validated? YES +Cl - CLEAR BKGD; Pregnancy, Serum, hCG Quali. NEGATIVE Negative
[2023-02-07 00:34] LABS: AST(SGOT) 12 U/L (15-37); Alanine Aminotransfer ALT/SGPT 18 U/L (13-56); Albumin, Serum 3.6 g/dL (3.2-5.0); Alkaline Phosphatase 102 U/L (45-117); Anion Gap 9 (5-15); BUN 10 mg/dL (7-18); BUN/Creat Ratio 11.8 RATIO (10-20); Bilirubin, Direct 0.08 mg/dL (0.00-0.30); Calcium,Total 8.8 mg/dL (8.5-10.1); Chloride 114 mmol/L (98-107); Creatinine, Serum 0.85 mg/dL (0.55-1.02); EST Glomerular Filtration Rate 89 mL/min (>60); Est Glom Filt Rate - Afr Amer 108 mL/min (>60); Estimated Creatinine Clearance 89.65 ml/min; Globulin 3.8 g/dL (2.2-4.2); Glucose 89 mg/dL (74-106); Lipase 27 U/L (13-75); Potassium 3.4 mmol/L (3.5-5.1); Protein, Total 7.4 g/dL (6.4-8.2); Sodium Level 141 mmol/L (136-145)
[2023-02-07] MEDS: 0.9% Normal Saline (1000mL) 1,000 ML 150 ML IV (01:05)
[2023-02-07 01:19] VITALS: BP 116/70; PULSE 65; RESP 12; O2SAT 98
[2023-02-07 01:54] VITALS: BP 112/61; RESP 16; O2SAT 99
[2023-02-07] MEDS: Ketorolac 30 MG/ML Syringe IV (01:54)
[2023-02-07] MEDS: Dicyclomine 20 MG/2 ML Vial IM (01:55)
[2023-02-07 03:00] VITALS: BP 105/54; PULSE 62; RESP 12; O2SAT 98
--- NOTE | 2023-02-07 03:43 | EDS_ITS ---
HPI History of Present Illness Chief Complaint: Abd Pain Informant: patient Onset/Context/Timing Onset: Yesterday Context: Gradual Onset Narrative Narrative: Patient presents secondary to epigastric abdominal pain with nausea and vomiting. Patient is been seen here frequently for similar. She recently had an EGD performed by Dr. David and was started on sulcalfate. She also follows with Dr. Hdz. She states pain increased again yesterday and today she has not been able to keep anything down. [facility] Medical History Anxiety Asthma Depression Diarrhea Endometriosis Gastroparesis GERD (gastroesophageal reflux disease) Migraine OCD (obsessive compulsive disorder) Pelvic pain POTS (postural orthostatic tachycardia syndrome) PTSD (post-traumatic stress disorder) Schizophrenia Tachycardia Upper abdominal pain Home Medications albuterol sulfate 90 mcg/actuation aerosol inhaler 2 puff inhalation PRN PRN Wheezing 06/14/21 [History Last Taken Unknown] epinephrine 0.3 mg/0.3 mL injection, auto-injector 1 mg IM PRN PRN Allergic Reaction 06/14/21 [History Last Taken Unknown] diclofenac sodium 75 mg tablet,delayed release 75 mg PO BID PRN pain 01/04/22 [History Last Taken Unknown] medroxyprogesterone 150 mg/mL intramuscular suspension (Depo-Provera) 150 mg IM .q10w 01/04/22 [History Last Taken Unknown] prazosin 1 mg capsule 2 mg PO DAILY 03/19/22 [History Last Taken Unknown] trazodone 50 mg tablet 50 mg PO QHS 03/19/22 [History Last Taken Unknown] metoclopramide HCl 5 mg tablet 2.5 mg (1/2 x 5 mg) PO QAC #15 tabs 08/08/22 [Rx Last Taken Unknown] ondansetron 4 mg disintegrating tablet 4 mg PO Q8H PRN PRN Nausea #10 tabs 09/07/22 [Rx Last Taken Unknown] pantoprazole 40 mg tablet,delayed release 40 mg PO BID #60 tabs 12/03/22 [Rx Last Taken Unknown] naproxen 500 mg tablet (Naprosyn) 500 mg PO BID PRN pain #20 tabs 12/18/22 [Rx Last Taken Unknown] aripiprazole 5 mg tablet 5 mg PO DAILY 01/16/23 [History Last Taken Unknown] fluoxetine 40 mg capsule 40 mg PO DAILY 01/16/23 [History Last Taken Unknown] topiramate 100 mg tablet 100 mg PO QHS 01/16/23 [History Last Taken Unknown] topiramate 25 mg tablet 25 mg PO DAILY 01/16/23 [History Last Taken Unknown] promethazine 25 mg tablet 25 mg PO TID PRN nausea and vomiting #14 tabs 01/29/23 [Rx Last Taken Unknown] carvedilol 6.25 mg tablet (Coreg) 6.25 mg PO BID #60 tabs 02/02/23 [Rx Last Taken Unknown] benzonatate 100 mg capsule 100 mg PO TID PRN 02/06/23 [History Last Taken Unknown] sucralfate 1 gram tablet 1 g PO BID 02/06/23 [History Last Taken Unknown] hydrocodone-acetaminophen 5-325mg 5mg-325mg 1 tab PO Q6H PRN pain 3 days #10 TABLETS 02/07/23 [Rx Last Taken Unknown] ondansetron 4 mg disintegrating tablet 4 mg PO Q8H PRN PRN Nausea #10 tabs 02/07/23 [Rx Last Taken Unknown] promethazine 25 mg tablet 25 mg PO TID PRN nausea and vomiting #14 tabs 02/07/23 [Rx Last Taken Unknown] Allergy/AdvReac Type Severity Reaction Status Date / Time gabapentin Allergy Rash Verified 02/06/23 22:35 glycerin [From Nasal-Ease] Allergy Swelling Verified 02/06/23 22:35 methylcellulose Allergy Swelling Verified 02/06/23 22:35 [From Nasal-Ease] sertraline [From Zoloft] Allergy Anaphylaxis Verified 02/06/23 22:35 silicone Allergy Rash Verified 02/06/23 22:35 sodium chloride Allergy Swelling Verified 02/06/23 22:35 [From Nasal-Ease] zinc [From Nasal-Ease] Allergy Swelling Verified 02/06/23 22:35 lactose AdvReac Upset Verified 02/06/23 22:35 Stomach Family History Father Anxiety Depression Asthma Hypertension Mother Asthma Diabetes Anxiety Depression CAD (coronary artery disease) Myocardial infarction, Onset Age: 42 Brother Oleksandr-Danlos syndrome Grandmother Myocardial infarction, Onset Age: 41 Grandfather Myocardial infarction, Onset Age: 38 Surgical History History of colonoscopy History of esophagogastroduodenoscopy (EGD) Hx of laparoscopy Social History household members: none Smoking Status: Current every day smoker tobacco type: e-cigarettes alcohol intake: current alcohol intake frequency: holidays/special occasions only substance use type: does not use caffeine: Yes Type: carbonated beverages, coffee and tea ROS ROS ED Constitutional Constitutional ED: Denies chills or fever(s) Eyes Eyes: Denies change in vision ENT ENT ED: Denies rhinorrhea or sore throat Cardiovascular Cardiovascular: Denies chest pain or palpitations Respiratory/Chest Respiratory/Chest: Denies cough or dyspnea Gastrointestinal Gastrointestinal: Reports abdominal pain, nausea and vomiting; Denies diarrhea Genitourinary Genitourinary ED: Denies dysuria Musculoskeletal Musculoskeletal: Denies back pain or extremity pain Integumentary Denies Abrasions or rash Neurologic Neurologic: Denies headache(s) or weakness Psychiatric Psychiatric: Denies anxiety or depression Allergic/Immunologic Allergic/Immunologic ED: Denies lip swelling or urticaria EXAM Physical Exam Const Vital Signs: 02/06/23 22:32 02/07/23 00:00 02/07/23 01:19 Temperature 97.3 F L Temperature Source Temporal Pulse Rate 82 85 65 Respiratory Rate 15 12 12 Blood Pressure 116/74 119/62 116/70 Blood Pressure Mean 88 81 85 Pulse Ox 100 98 98 Oxygen Delivery Method Room Air Room Air Room Air 02/07/23 01:54 02/07/23 03:00 Temperature Temperature Source Pulse Rate 62 Respiratory Rate 16 12 Blood Pressure 112/61 105/54 L Blood Pressure Mean 78 71 Pulse Ox 99 98 Oxygen Delivery Method Room Air Room Air Positive well nourished and well developed General Appearance ED: well developed HEENT Reports dry mucous membranes Mouth ED: Yes dry mucous membranes Mouth: dry mucous membranes Eyes EOMs intact bilaterally Chest Wall inspection of chest normal and palpation of chest normal Resp normal respiratory effort and clear to auscultation bilaterally Cardio regular rate and regular rhythm GI GI Narrative: Abdomen soft with epigastric tenderness to palpation. No guarding or rebound Extremity normal to inspection Neuro oriented x3 and no sensory deficits noted Motor Exam: strength 5/5 throughout Psych mental status grossly normal Skin no rashes or lesions noted MDM MDM MDM Narrative Medical decision making narrative: Patient initially given morphine and Zofran along with IV fluids. Labwork obtained to evaluate for leukocytosis, anemia, and electrolyte derangement. History & Record Review Discussion w/independent historian: Patient Additional record(s) reviewed:: Prior ED visit and Prior labs Lab Data Attestation: I reviewed the patient's lab results. Labs: Laboratory Results - last 24 hr 02/06/23 02/06/23 00:05 23:36 WBC 7.8 RBC 4.92 Hgb 12.1 Hct 38.3 MCV 77.8 L MCH 24.6 L MCHC 31.6 L RDW Std Deviation 41.6 RDW Coeff of Anoop 14.9 H Plt Count 478 H MPV 8.9 Immature Gran % (Auto) 0.400 Neut % (Auto) 53.3 Lymph % (Auto) 36.4 Boyd % (Auto) 6.6 Eos % (Auto) 3.0 Baso % (Auto) 0.3 Absolute Neuts (auto) 4.2 Absolute Lymphs (auto) 2.83 Nucleated RBC % 0 Sodium 141 Potassium 3.4 L Chloride 114 H Carbon Dioxide 18.0 L Anion Gap 9 BUN 10 Creatinine 0.85 Estim Creat Clear Calc 89.65 Est GFR (MDRD) Af Amer 108 Est GFR (MDRD) Non-Af 89 BUN/Creatinine Ratio 11.8 Glucose 89 Calcium 8.8 Total Bilirubin 0.10 L Direct Bilirubin 0.08 AST 12 L ALT 18 Alkaline Phosphatase 102 Total Protein 7.4 Albumin 3.6 Globulin 3.8 Lipase 27 Serum , Qual NEGATIVE Treatment and Re-Evaluation :: CBC was normal white count at 7.8 with a hemoglobin of 12.1. Platelet count is slightly elevated at 478,000. Chemistry studies reveal slightly low potassium at 3.4. Bicarb is low at 18. LFTs and lipase unremarkable. test negative. Patient did get a second dose of morphine along with a dose of Bentyl and Toradol. On repeat evaluation she reports her symptoms are improved. She is given refills of her nausea medications. I did do an [facility] report. Patient has not had any narcotics since March of last year. I will give her 10 days of [place] to help with pain. She is to follow-up with Dr. Hdz. Return instructions given. Discharge Plan Triage Chief Complaint: Abd Pain ED Provider: Sridevi Varela Dx/Rx/DC Orders Clinical Impression: Epigastric pain, Vomiting Instructions: ED Vomiting (Adult), ED Epigastric Pain Uncertain Cause Prescriptions: New ondansetron 4 mg tablet,disintegrating 4 mg PO Q8H PRN PRN (Reason: Nausea) Qty: 10 0RF promethazine 25 mg tablet 25 mg PO TID PRN (Reason: nausea and vomiting) Qty: 14 0RF hydrocodone-acetaminophen 5-325 mg tablet 1 tab PO Q6H PRN (Reason: pain) 3 Days Qty: 10 0RF No Action diclofenac sodium 75 mg tablet,delayed release (DR/EC) 75 mg PO BID PRN (Reason: pain) topiramate 100 mg tablet 100 mg PO QHS Rx Instructions: give with 25 mg tablet to = 125 mg medroxyprogesterone [Depo-Provera] 150 mg/mL suspension 150 mg IM .q10w Patient Comments: INJECT 1ML INTRAMUSCULARILY EVERY 12 WEEKS metoclopramide HCl 5 mg tablet 2.5 mg PO QAC Qty: 15 2RF Rx Instructions: administer 30 minutes before meals aripiprazole 5 mg tablet 5 mg PO DAILY fluoxetine 40 mg capsule 40 mg PO DAILY topiramate 25 mg tablet 25 mg PO DAILY Patient Comments: take 1 tablet by mouth at bedtime Rx Instructions: give with 100 mg tablet to = 125 mg epinephrine 0.3 mg/0.3 mL auto-injector 1 mg IM PRN PRN (Reason: Allergic Reaction) Patient Comments: INJECT INTO THE MUSCLE NEEDED FOR ANAPHYLAXIS REACTION albuterol sulfate 90 mcg/actuation HFA aerosol inhaler 2 puff INHALATION PRN PRN (Reason: Wheezing) Patient Comments: inhale 2 puffs by mouth and INTO THE LUNGS every 4 hours if neede... (REFER TO PRESCRIPTION NOTES). trazodone 50 mg tablet 50 mg PO QHS Patient Comments: TAKE 1 OR 2 TABLETS BY MOUTH AT BEDTIME prazosin 1 mg capsule 2 mg PO DAILY ondansetron 4 mg tablet,disintegrating 4 mg PO Q8H PRN PRN (Reason: Nausea) Qty: 10 0RF naproxen [Naprosyn] 500 mg tablet 500 mg PO BID PRN (Reason: pain) Qty: 20 0RF promethazine 25 mg tablet 25 mg PO TID PRN (Reason: nausea and vomiting) Qty: 14 0RF sucralfate 1 gram tablet 1 g PO BID Patient Comments: take 1 tablet by mouth twice a day AT 6AM and AT 9PM benzonatate 100 mg capsule 100 mg PO TID PRN Patient Comments: take 1 to 2 capsules by mouth three times a day if needed pantoprazole 40 mg tablet,delayed release (DR/EC) 40 mg PO BID Qty: 60 3RF carvedilol [Coreg] 6.25 mg tablet 6.25 mg PO BID Qty: 60 0RF Rx Instructions: must administer with a meal/food Primary Care Provider: Monica Patterson Referrals: Damir Hdz DO [Med Staff - Active Staff] - 1-2 Weeks Monica Patterson NP-C [Primary Care Provider] - 5-7 Days Disposition Disposition: Home, Self Care Discharge Date/Time: 02/07/23 03:54
== END 2023-02-07 03:54 | disposition home or self-care (01) ==
PROVIDERS: Emergency Provider Emergency Medicine; PCP Nurse Practitioner Family; Visit Provider Emergency Medicine
DX: R10.13 Epigastric pain (principal); F20.9 Schizophrenia, unspecified; R11.10 Vomiting, unspecified; F17.210 Nicotine dependence, cigarettes, uncomplicated; J45.909 Unspecified asthma, uncomplicated; F41.9 Anxiety disorder, unspecified; F32.A Depression, unspecified; K21.9 Gastro-esophageal reflux disease without esophagitis; F42.9 Obsessive-compulsive disorder, unspecified
CPT/HCPCS: 80048; 80076; 83690; 84703; 85025; 96361; 96372; 96374; 96375; 96376; 99283; J7030; A4216; J2405

== ENCOUNTER 2023-02-11 19:15 | Emergency (ER) | payer MEDICAID, SELFPAY ==
[2023-02-11 19:15] VITALS: BP 113/81; PULSE 91; RESP 16; TEMP 36.1; O2SAT 100; BMI 29.0
--- NOTE | 2023-02-11 19:36 | EX.ED.DYSGE1 ---
HPI <MOY Fenton - Last Filed: 02/11/23 21:03> History of Present Illness Chief Complaint: Abd Pain Narrative Narrative: Patient is a 23-year-old female with multiple medical issues such as anxiety, depression, GERD, POTS, bipolar, OCD who presents to the emergency department for acute on chronic abdominal pain. Patient does frequent the emergency department with this problem. Patient states that she is unable to keep any food or drink down. Patient states she is extrusion abdominal pain. Patient states she contacted Dr. Hdz who told her to come in and get admitted for pain control. Patient denies any fever or chills, denies any blood in stool or vomit. PFSH <MOY Fenton - Last Filed: 02/11/23 21:03> [facility] Medical History Anxiety Asthma Depression Diarrhea Endometriosis Gastroparesis GERD (gastroesophageal reflux disease) Migraine OCD (obsessive compulsive disorder) Pelvic pain POTS (postural orthostatic tachycardia syndrome) PTSD (post-traumatic stress disorder) Schizophrenia Tachycardia Upper abdominal pain Home Medications albuterol sulfate 90 mcg/actuation aerosol inhaler 2 puff inhalation PRN PRN Wheezing 06/14/21 [History Last Taken Unknown] epinephrine 0.3 mg/0.3 mL injection, auto-injector 1 mg IM PRN PRN Allergic Reaction 06/14/21 [History Last Taken Unknown] diclofenac sodium 75 mg tablet,delayed release 75 mg PO BID PRN pain 01/04/22 [History Last Taken Unknown] medroxyprogesterone 150 mg/mL intramuscular suspension (Depo-Provera) 150 mg IM .q10w 01/04/22 [History Last Taken Unknown] prazosin 1 mg capsule 2 mg PO DAILY 03/19/22 [History Last Taken Unknown] trazodone 50 mg tablet 50 mg PO QHS 03/19/22 [History Last Taken Unknown] metoclopramide HCl 5 mg tablet 2.5 mg (1/2 x 5 mg) PO QAC #15 tabs 08/08/22 [Rx Last Taken Unknown] ondansetron 4 mg disintegrating tablet 4 mg PO Q8H PRN PRN Nausea #10 tabs 09/07/22 [Rx Last Taken Unknown] pantoprazole 40 mg tablet,delayed release 40 mg PO BID #60 tabs 12/03/22 [Rx Last Taken Unknown] naproxen 500 mg tablet (Naprosyn) 500 mg PO BID PRN pain #20 tabs 12/18/22 [Rx Last Taken Unknown] aripiprazole 5 mg tablet 5 mg PO DAILY 01/16/23 [History Last Taken Unknown] fluoxetine 40 mg capsule 40 mg PO DAILY 01/16/23 [History Last Taken Unknown] topiramate 100 mg tablet 100 mg PO QHS 01/16/23 [History Last Taken Unknown] topiramate 25 mg tablet 25 mg PO DAILY 01/16/23 [History Last Taken Unknown] promethazine 25 mg tablet 25 mg PO TID PRN nausea and vomiting #14 tabs 01/29/23 [Rx Last Taken Unknown] benzonatate 100 mg capsule 100 mg PO TID PRN 02/06/23 [History Last Taken Unknown] sucralfate 1 gram tablet 1 g PO BID 02/06/23 [History Last Taken Unknown] hydrocodone-acetaminophen 5-325mg 5mg-325mg 1 tab PO Q6H PRN pain 3 days #10 TABLETS 02/07/23 [Rx Last Taken Unknown] ondansetron 4 mg disintegrating tablet 4 mg PO Q8H PRN PRN Nausea #10 tabs 02/07/23 [Rx Last Taken Unknown] promethazine 25 mg tablet 25 mg PO TID PRN nausea and vomiting #14 tabs 02/07/23 [Rx Last Taken Unknown] carvedilol 12.5 mg tablet 12.5 mg PO BID #180 tabs 02/11/23 [Rx Last Taken Unknown] Allergy/AdvReac Type Severity Reaction Status Date / Time gabapentin Allergy Rash Verified 02/06/23 22:35 glycerin [From Nasal-Ease] Allergy Swelling Verified 02/06/23 22:35 methylcellulose Allergy Swelling Verified 02/06/23 22:35 [From Nasal-Ease] sertraline [From Zoloft] Allergy Anaphylaxis Verified 02/06/23 22:35 silicone Allergy Rash Verified 02/06/23 22:35 sodium chloride Allergy Swelling Verified 02/06/23 22:35 [From Nasal-Ease] zinc [From Nasal-Ease] Allergy Swelling Verified 02/06/23 22:35 lactose AdvReac Upset Verified 02/06/23 22:35 Stomach Family History Father Anxiety Depression Asthma Hypertension Mother Asthma Diabetes Anxiety Depression CAD (coronary artery disease) Myocardial infarction, Onset Age: 42 Brother Oleksandr-Danlos syndrome Grandmother Myocardial infarction, Onset Age: 41 Grandfather Myocardial infarction, Onset Age: 38 Surgical History History of colonoscopy History of esophagogastroduodenoscopy (EGD) Hx of laparoscopy Social History household members: none Smoking Status: Current every day smoker tobacco type: e-cigarettes alcohol intake: current alcohol intake frequency: holidays/special occasions only substance use type: does not use caffeine: Yes Type: carbonated beverages, coffee and tea ROS <MOY Fenton - Last Filed: 02/11/23 21:03> ROS ED ROS Narrative Constitutional: Negative for fever, chills, weight loss, weakness Eyes: Negative for vision loss, vision change, double vision ENT: Negative for any sore throat, ear pain, congestion Cardiovascular: Negative for any chest pain, tightness, palpitations Respiratory: Negative for any cough, sputum production, hemoptysis, dyspnea, dyspnea on exertion, orthopnea Gastrointestinal: Negative for any diarrhea, constipation, blood in stool, blood in vomit. Positive for abdominal pain, nausea and vomiting : Negative for any urinary frequency, dysuria, retention, blood in urine Muscle skeletal: Negative for any muscle joint pain, stiffness, myalgias, arthralgias, neck pain, back pain Neurological: Negative for any headache, syncope, numbness or tingling, dizziness Skin: Negative for any rashes, lumps, itching, abrasions, lacerations Psychiatric: Negative for any depression, anxiety, stress, suicidal ideation, homicidal ideation Hematologic: Negative for any easy bruising, excessive bruising, easy bleeding Allergies: Negative for any eczema, hives, rash EXAM <MOY Fenton - Last Filed: 02/11/23 21:03> Physical Exam Narrative Exam Narrative: Vital signs reviewed. HEET: Head normocephalic atraumatic, TMs clear bilaterally. Posterior pharynx is clear, dry mucous membranes. Nares clear bilaterally. Neck: Supple with no lymphadenopathy or tenderness. No signs of meningismus, negative jolt sign. Cardiac: Regular rate and rhythm no murmurs gallops or rubs, equal peripheral pulses bilaterally. Respiratory: Lungs clear to auscultation bilaterally. No chest tenderness. Abdomen: Soft, nontender, nondistended. No abdominal bruit or pulsatile masses. No hepatosplenomegaly. Patient has pain out of proportion throughout the entire abdominal exam. Patient has no localized pain. Extremities: No peripheral edema, no signs of gross trauma or deformity. Active full range of motion of all extremities. Neuro: Cranial nerves II through XII intact, no focal neurological deficits. Skin: Clean dry and intact with no rash, purpura, petechiae, vesicles or pustules. Backs/flank: No CVA tenderness, no midline spinal tenderness, no deformity. Psych: Normal mood and affect. No SI, HI or acute psychosis. Const Vital Signs: 02/11/23 19:15 Temperature 97 F L Temperature Source Temporal Pulse Rate 91 Respiratory Rate 16 Blood Pressure 113/81 H Blood Pressure Mean 91 Pulse Ox 100 Oxygen Delivery Method Room Air <Dr. Gus Richard MD - Last Filed: 02/11/23 20:37> Physical Exam Const Vital Signs: 02/11/23 19:15 Temperature 97 F L Temperature Source Temporal Pulse Rate 91 Respiratory Rate 16 Blood Pressure 113/81 H Blood Pressure Mean 91 Pulse Ox 100 Oxygen Delivery Method Room Air MDM <MOY Fenton - Last Filed: 02/11/23 21:03> [facility] Lab Data Labs: Laboratory Results - last 24 hr 02/11/23 20:00 WBC 6.6 RBC 5.07 Hgb 12.6 Hct 39.5 MCV 77.9 L MCH 24.9 L MCHC 31.9 L RDW Std Deviation 41.6 RDW Coeff of Anoop 14.9 H Plt Count 461 H MPV 8.9 Immature Gran % (Auto) 0.200 Neut % (Auto) 53.0 Lymph % (Auto) 35.8 Keith % (Auto) 7.6 Eos % (Auto) 2.9 Baso % (Auto) 0.5 Absolute Neuts (auto) 3.5 Absolute Lymphs (auto) 2.37 Nucleated RBC % 0 Sodium 141 Potassium 3.4 L Chloride 113 H Carbon Dioxide 23.0 Anion Gap 5 BUN 20 H Creatinine 0.82 Estim Creat Clear Calc 92.93 Est GFR (MDRD) Af Amer 112 Est GFR (MDRD) Non-Af 92 BUN/Creatinine Ratio 24.3 H Glucose 83 Calcium 8.5 Total Bilirubin 0.20 AST 13 L ALT 19 Alkaline Phosphatase 101 Total Protein 7.1 Albumin 3.3 Globulin 3.8 Albumin/Globulin Ratio 0.9 Lipase 29 Urine Color Yellow Urine Clarity Sl. Cloudy Urine pH 5.0 Ur Specific Dawson 1.025 Urine Protein 15 H Urine Glucose (UA) Normal Urine Ketones Negative Urine Occult Blood Negative Urine Nitrite Negative Urine Bilirubin Negative Urine Urobilinogen 1 H Ur Leukocyte Esterase 25 H Urine RBC 0 SEEN Urine WBC 0-5 SEEN Ur Squamous Epith Cells 0-5 SEEN Urine Bacteria 0 SEEN Urine Mucus 1+ Treatment and Re-Evaluation :: Patient appears to be in no obvious distress, vital signs are stable. Presenting to the emergency department for acute on chronic abdominal pain. Patient states that this has been ongoing, she called Dr. Hdz's office and he wants her to be admitted for pain control. Prior to work-up with this patient, I did reach out to Dr. Hdz. Per Dr. Hdz, the patient calls only at nighttime, the patient calls him multiple times a week at nighttime. Patient has missed follow-up appointments. The plan will be to work-up the patient to ensure there is no acute process, and the patient be able to follow-up outpatient. Differential diagnosis include gastroparesis which she has a history of, bowel obstruction, hyperemesis cannabinoids. Patient be treated with IV fluids, abdomen labs will be drawn. Patient will be given Haldol IV to see if this helps the patient's abdominal pain, nausea and vomiting. On reevaluation The patient on reevaluation was feeling much better. Patient's laboratory values showed normal CBC, patient's chemistries showed no electrolyte abnormality. Patient's anion gap was normal at 5, kidney functions within normal limits. Patient was given 2 mg of Haldol, IV fluids. On reevaluation she did feel better. Urinalysis negative for any infection, patient is not . I spoke with the patient at length, patient will follow-up outpatient with Dr. Hdz, all questions answered stable for discharge. Time, I do believe the patient is suffering from acute on chronic abdominal pain. Gastroparesis <Dr. Gus Richard MD - Last Filed: 02/11/23 20:37> MDM Lab Data Labs: Laboratory Results - last 24 hr 02/11/23 20:00 WBC 6.6 RBC 5.07 Hgb 12.6 Hct 39.5 MCV 77.9 L MCH 24.9 L MCHC 31.9 L RDW Std Deviation 41.6 RDW Coeff of Anoop 14.9 H Plt Count 461 H MPV 8.9 Immature Gran % (Auto) 0.200 Neut % (Auto) 53.0 Lymph % (Auto) 35.8 Keith % (Auto) 7.6 Eos % (Auto) 2.9 Baso % (Auto) 0.5 Absolute Neuts (auto) 3.5 Absolute Lymphs (auto) 2.37 Nucleated RBC % 0 Sodium 141 Potassium 3.4 L Chloride 113 H Carbon Dioxide 23.0 Anion Gap 5 BUN 20 H Creatinine 0.82 Estim Creat Clear Calc 92.93 Est GFR (MDRD) Af Amer 112 Est GFR (MDRD) Non-Af 92 BUN/Creatinine Ratio 24.3 H Glucose 83 Calcium 8.5 Total Bilirubin 0.20 AST 13 L ALT 19 Alkaline Phosphatase 101 Total Protein 7.1 Albumin 3.3 Globulin 3.8 Albumin/Globulin Ratio 0.9 Lipase 29 Urine Color Yellow Urine Clarity Sl. Cloudy Urine pH 5.0 Ur Specific Dawson 1.025 Urine Protein 15 H Urine Glucose (UA) Normal Urine Ketones Negative Urine Occult Blood Negative Urine Nitrite Negative Urine Bilirubin Negative Urine Urobilinogen 1 H Ur Leukocyte Esterase 25 H Urine RBC 0 SEEN Urine WBC 0-5 SEEN Ur Squamous Epith Cells 0-5 SEEN Urine Bacteria 0 SEEN Urine Mucus 1+ Treatment and Re-Evaluation Comments:: I have personally performed a face to face assessment of the patient and have reviewed the ALANIS Note. I performed a substantive portion of the visit including all aspects of the following. My lawson findings include: History is pain that started after eating this afternoon, she often has them up, no vomiting yet, feels nauseated. Did have some vomiting yesterday after eating without the pain. Talk to GI, sounds like they advised her to come and be admitted to the emergency department for evaluation and treatment if her symptoms were as severe as she says they are. Exam is NAD. Normal bowel sounds, nondistended, objectively nontender and without rebound tenderness or guarding, but subjectively diffusely tender. She states it is worse on the right than the left, similar to prior episodes. Medical Decison Making Labs, IV fluids, and symptom control. Other additions or changes: [None] Discharge Plan Triage Chief Complaint: Abd Pain ED Midlevel Provider: Sumanth Potts ED Provider: Gus Richard Dx/Rx/DC Orders Clinical Impression: Gastroparesis Instructions: Gastroparesis Prescriptions: No Action diclofenac sodium 75 mg tablet,delayed release (DR/EC) 75 mg PO BID PRN (Reason: pain) topiramate 100 mg tablet 100 mg PO QHS Rx Instructions: give with 25 mg tablet to = 125 mg medroxyprogesterone [Depo-Provera] 150 mg/mL suspension 150 mg IM .q10w Patient Comments: INJECT 1ML INTRAMUSCULARILY EVERY 12 WEEKS metoclopramide HCl 5 mg tablet 2.5 mg PO QAC Qty: 15 2RF Rx Instructions: administer 30 minutes before meals aripiprazole 5 mg tablet 5 mg PO DAILY fluoxetine 40 mg capsule 40 mg PO DAILY topiramate 25 mg tablet 25 mg PO DAILY Patient Comments: take 1 tablet by mouth at bedtime Rx Instructions: give with 100 mg tablet to = 125 mg epinephrine 0.3 mg/0.3 mL auto-injector 1 mg IM PRN PRN (Reason: Allergic Reaction) Patient Comments: INJECT INTO THE MUSCLE NEEDED FOR ANAPHYLAXIS REACTION albuterol sulfate 90 mcg/actuation HFA aerosol inhaler 2 puff INHALATION PRN PRN (Reason: Wheezing) Patient Comments: inhale 2 puffs by mouth and INTO THE LUNGS every 4 hours if neede... (REFER TO PRESCRIPTION NOTES). trazodone 50 mg tablet 50 mg PO QHS Patient Comments: TAKE 1 OR 2 TABLETS BY MOUTH AT BEDTIME prazosin 1 mg capsule 2 mg PO DAILY ondansetron 4 mg tablet,disintegrating 4 mg PO Q8H PRN PRN (Reason: Nausea) Qty: 10 0RF naproxen [Naprosyn] 500 mg tablet 500 mg PO BID PRN (Reason: pain) Qty: 20 0RF promethazine 25 mg tablet 25 mg PO TID PRN (Reason: nausea and vomiting) Qty: 14 0RF sucralfate 1 gram tablet 1 g PO BID Patient Comments: take 1 tablet by mouth twice a day AT 6AM and AT 9PM benzonatate 100 mg capsule 100 mg PO TID PRN Patient Comments: take 1 to 2 capsules by mouth three times a day if needed ondansetron 4 mg tablet,disintegrating 4 mg PO Q8H PRN PRN (Reason: Nausea) Qty: 10 0RF promethazine 25 mg tablet 25 mg PO TID PRN (Reason: nausea and vomiting) Qty: 14 0RF hydrocodone-acetaminophen 5-325 mg tablet 1 tab PO Q6H PRN (Reason: pain) 3 Days Qty: 10 0RF pantoprazole 40 mg tablet,delayed release (DR/EC) 40 mg PO BID Qty: 60 3RF carvedilol 12.5 mg tablet 12.5 mg PO BID Qty: 180 3RF Rx Instructions: must administer with a meal/food Primary Care Provider: Monica Patterson Referrals: Damir Hdz DO [Med Staff - Active Staff] - Monica Patterson, SURGICAL SERVICES COORDINATOR-C [Primary Care Provider] - Disposition Disposition: Home, Self Care
[2023-02-11 20:10] LABS: Bacteria 0 SEEN /hpf (None Seen); Red Blood Cells-Urine 0 SEEN /hpf (0-5)
[2023-02-11 20:12] LABS: Color, Urine Yellow (Yellow); Glucose, Dipstick Normal (Normal); Ketone-Dipstick Negative (Negative); Leukocyte Esterase-Dipstick 25 /ul (Negative); Nitrite-Dipstick Negative (Negative); Occult Blood-Urine Negative /ul (Negative); Protein-Dipstick 15 mg/dl (Negative); Specific Gravity, Urine 1.025 (1.002-1.030); Urine Bilirubin Dipstick Negative (Negative); Urine Clarity Sl. Cloudy (Clear); Urine Urobilinogen 1 mg/dl (Normal)
[2023-02-11 20:32] LABS: Mucous, Urine 1+ /hpf (<or=2+); Squamous Epithelial Cells - UA 0-5 SEEN /hpf (5-10); White Blood Cells 0-5 SEEN /hpf (0-5)
[2023-02-11] MEDS: Dicyclomine 20 MG/2 ML Vial IM (20:32)
[2023-02-11] MEDS: 0.9% Normal Saline (1000mL) 1,000 ML 1000 ML IV (20:32)
[2023-02-11] MEDS: Haloperidol Lactate 5 MG/ML Vial 2 MG IV (20:32)
[2023-02-11 20:40] LABS: Absolute Lymphocyte Count 2.37 X10^3/uL (0.83-4.51); Absolute Neutrophil Count 3.5 X10^3/uL (2.0-7.7); Basophil# 0.03 X10^3/uL; Basophil% 0.5 % (0-1); Eosinophil# 0.19 X10^3/uL; Eosinophils% 2.9 % (0-5); Hematocrit 39.5 % (37-47); Hemoglobin 12.6 g/dL (12.0-15.0); Lymphocyte # 2.37 X10^3/ul (0.83-4.51); Lymphocyte % 35.8 % (19-41); Mean Corp Hgb Conc 31.9 g/dL (32-36); Mean Corpuscular Hgb 24.9 pg (27.0-32.0); Mean Corpuscular Volume 77.9 fL (81-99); Mean Platelet Vol. 8.9 fl (6.2-12.0); Monocyte% 7.6 % (0-10); NRBC Flagged by Analyzer 0 % (0-5); Neutrophil # 3.52 X10^3/uL (2.7-7.7); Platelet Count 461 K/mm3 (150-450); RBC Distribution Width CV 14.9 % (11.6-14.6); RBC Distribution Width SD 41.6 fl (35.1-43.9); Red Blood Count 5.07 M/mm3 (4.2-5.4); White Blood Count 6.6 K/mm3 (4.4-11.0)
[2023-02-11 20:45] LABS: ALB/GLOB Ratio 0.9 RATIO (0.9-2.4); AST(SGOT) 13 U/L (15-37); Alanine Aminotransfer ALT/SGPT 19 U/L (13-56); Albumin, Serum 3.3 g/dL (3.2-5.0); Alkaline Phosphatase 101 U/L (45-117); Anion Gap 5 (5-15); BUN 20 mg/dL (7-18); BUN/Creat Ratio 24.3 RATIO (10-20); Calcium,Total 8.5 mg/dL (8.5-10.1); Chloride 113 mmol/L (98-107); Creatinine, Serum 0.82 mg/dL (0.55-1.02); EST Glomerular Filtration Rate 92 mL/min (>60); Est Glom Filt Rate - Afr Amer 112 mL/min (>60); Estimated Creatinine Clearance 92.93 ml/min; Globulin 3.8 g/dL (2.2-4.2); Glucose 83 mg/dL (74-106); Lipase 29 U/L (13-75); Potassium 3.4 mmol/L (3.5-5.1); Protein, Total 7.1 g/dL (6.4-8.2); Sodium Level 141 mmol/L (136-145)
== END 2023-02-11 21:10 | disposition home or self-care (01) ==
PROVIDERS: Nurse Practitioner; Emergency Provider Emergency Medicine; PCP Nurse Practitioner Family; Visit Provider Emergency Medicine
DX: K31.84 Gastroparesis (principal); F20.9 Schizophrenia, unspecified; J45.909 Unspecified asthma, uncomplicated; G43.909 Migraine, unspecified, not intractable, without status migrainosus; K21.9 Gastro-esophageal reflux disease without esophagitis; F32.A Depression, unspecified; F42.9 Obsessive-compulsive disorder, unspecified; F17.290 Nicotine dependence, other tobacco product, uncomplicated
CPT/HCPCS: 80053; 81001; 83690; 85025; 96361; 96372; 96374; 99283; J7030; A4216

== ENCOUNTER 2023-02-16 15:02 | Emergency (ER) | payer MEDICAID, SELFPAY ==
[2023-02-16 15:03] VITALS: BP 119/73; PULSE 83; RESP 18; TEMP 36.4; O2SAT 100; BMI 28.8
[2023-02-16] MEDS: Metoclopramide 10 MG/2 ML Vial IM (15:37)
[2023-02-16] MEDS: DiphenhydrAMINE 50 MG/ML Syringe 25 MG IM (15:40)
[2023-02-16] MEDS: Ketorolac 30 MG/ML Syringe IM (15:42)
--- NOTE | 2023-02-16 16:32 | EDS_ITS ---
HPI <MOY Fenton - Last Filed: 02/16/23 16:45> History of Present Illness Chief Complaint: Headache Narrative Narrative: Patient is a 23-year-old female with history of gastroparesis, GERD, POTS, anxiety, bipolar presents to the [facility] with 5 days of headache. Patient states that she does have history of migraines, she went to urgent care, and they referred her to the emergency department. She denies any numbness or tingling to her upper or lower extremities. Patient does see a neurologist, she is on daily medication. He states this is not working. She denies any fever or chills. She denies any neck pain. [facility] <MOY Fenton - Last Filed: 02/16/23 16:45> [facility] Medical History Anxiety Asthma Depression Diarrhea Endometriosis Gastroparesis GERD (gastroesophageal reflux disease) Migraine OCD (obsessive compulsive disorder) Pelvic pain POTS (postural orthostatic tachycardia syndrome) PTSD (post-traumatic stress disorder) Schizophrenia Tachycardia Upper abdominal pain Home Medications albuterol sulfate 90 mcg/actuation aerosol inhaler 2 puff inhalation PRN PRN Wheezing 06/14/21 [History Last Taken Unknown] epinephrine 0.3 mg/0.3 mL injection, auto-injector 1 mg IM PRN PRN Allergic Reaction 06/14/21 [History Last Taken Unknown] diclofenac sodium 75 mg tablet,delayed release 75 mg PO BID PRN pain 01/04/22 [History Last Taken Unknown] medroxyprogesterone 150 mg/mL intramuscular suspension (Depo-Provera) 150 mg IM .q10w 01/04/22 [History Last Taken Unknown] prazosin 1 mg capsule 2 mg PO DAILY 03/19/22 [History Last Taken Unknown] trazodone 50 mg tablet 50 mg PO QHS 03/19/22 [History Last Taken Unknown] metoclopramide HCl 5 mg tablet 2.5 mg (1/2 x 5 mg) PO QAC #15 tabs 08/08/22 [Rx Last Taken Unknown] ondansetron 4 mg disintegrating tablet 4 mg PO Q8H PRN PRN Nausea #10 tabs 09/07/22 [Rx Last Taken Unknown] pantoprazole 40 mg tablet,delayed release 40 mg PO BID #60 tabs 12/03/22 [Rx Last Taken Unknown] naproxen 500 mg tablet (Naprosyn) 500 mg PO BID PRN pain #20 tabs 12/18/22 [Rx Last Taken Unknown] aripiprazole 5 mg tablet 5 mg PO DAILY 01/16/23 [History Last Taken Unknown] fluoxetine 40 mg capsule 40 mg PO DAILY 01/16/23 [History Last Taken Unknown] topiramate 100 mg tablet 100 mg PO QHS 01/16/23 [History Last Taken Unknown] topiramate 25 mg tablet 25 mg PO DAILY 01/16/23 [History Last Taken Unknown] promethazine 25 mg tablet 25 mg PO TID PRN nausea and vomiting #14 tabs 01/29/23 [Rx Last Taken Unknown] benzonatate 100 mg capsule 100 mg PO TID PRN 02/06/23 [History Last Taken Unknown] sucralfate 1 gram tablet 1 g PO BID 02/06/23 [History Last Taken Unknown] hydrocodone-acetaminophen 5-325mg 5mg-325mg 1 tab PO Q6H PRN pain 3 days #10 TABLETS 02/07/23 [Rx Last Taken Unknown] ondansetron 4 mg disintegrating tablet 4 mg PO Q8H PRN PRN Nausea #10 tabs 02/07/23 [Rx Last Taken Unknown] promethazine 25 mg tablet 25 mg PO TID PRN nausea and vomiting #14 tabs 02/07/23 [Rx Last Taken Unknown] carvedilol 12.5 mg tablet 12.5 mg PO BID #180 tabs 02/11/23 [Rx Last Taken Unknown] Allergy/AdvReac Type Severity Reaction Status Date / Time gabapentin Allergy Rash Verified 02/16/23 15:03 glycerin [From Nasal-Ease] Allergy Swelling Verified 02/16/23 15:03 methylcellulose Allergy Swelling Verified 02/16/23 15:03 [From Nasal-Ease] sertraline [From Zoloft] Allergy Anaphylaxis Verified 02/16/23 15:03 silicone Allergy Rash Verified 02/16/23 15:03 sodium chloride Allergy Swelling Verified 02/16/23 15:03 [From Nasal-Ease] zinc [From Nasal-Ease] Allergy Swelling Verified 02/16/23 15:03 lactose AdvReac Upset Verified 02/16/23 15:03 Stomach Family History Father Anxiety Depression Asthma Hypertension Mother Asthma Diabetes Anxiety Depression CAD (coronary artery disease) Myocardial infarction, Onset Age: 42 Brother Oleksandr-Danlos syndrome Grandmother Myocardial infarction, Onset Age: 41 Grandfather Myocardial infarction, Onset Age: 38 Surgical History History of colonoscopy History of esophagogastroduodenoscopy (EGD) Hx of laparoscopy Social History household members: none Smoking Status: Current every day smoker tobacco type: e-cigarettes alcohol intake: current alcohol intake frequency: holidays/special occasions only substance use type: does not use caffeine: Yes Type: carbonated beverages, coffee and tea ROS <MOY Fenton - Last Filed: 02/16/23 16:45> ROS ED ROS Narrative Constitutional: Negative for fever, chills, weight loss, weakness Eyes: Negative for vision loss, vision change, double vision. Positive photophobia ENT: Negative for any sore throat, ear pain, congestion Cardiovascular: Negative for any chest pain, tightness, palpitations Respiratory: Negative for any cough, sputum production, hemoptysis, dyspnea, dyspnea on exertion, orthopnea Gastrointestinal: Negative for any abdominal pain, nausea, vomiting, diarrhea, constipation, blood in stool, blood in vomit : Negative for any urinary frequency, dysuria, retention, blood in urine Muscle skeletal: Negative for any muscle joint pain, stiffness, arthralgias, neck pain, back pain Neurological: Negative for any syncope, numbness or tingling, dizziness, positive for headache worse frontal, behind the eyes. Skin: Negative for any rashes, lumps, itching, abrasions, lacerations Psychiatric: Negative for any depression, anxiety, stress, suicidal ideation, homicidal ideation Hematologic: Negative for any easy bruising, excessive bruising, easy bleeding Allergies: Negative for any eczema, hives, rash EXAM <MOY Fenton - Last Filed: 02/16/23 16:45> Physical Exam Narrative Exam Narrative: Vital signs reviewed. HEET: Head normocephalic atraumatic, TMs clear bilaterally. Posterior pharynx is clear, moist mucous membranes. Nares clear bilaterally. Pupils equal round reactive to light. Neck: Supple with no lymphadenopathy or tenderness. No signs of meningismus, negative jolt sign. Cardiac: Regular rate and rhythm no murmurs gallops or rubs, equal peripheral pulses bilaterally. Respiratory: Lungs clear to auscultation bilaterally. No chest tenderness. Abdomen: Soft, nontender, nondistended. No abdominal bruit or pulsatile masses. No hepatosplenomegaly Extremities: No peripheral edema, no signs of gross trauma or deformity. Active full range of motion of all extremities. Neuro: Cranial nerves II through XII intact, no focal neurological deficits. NIH stroke scale 0 Skin: Clean dry and intact with no rash, purpura, petechiae, vesicles or pustules. Backs/flank: No CVA tenderness, no midline spinal tenderness, no deformity. Psych: Normal mood and affect. No SI, HI or acute psychosis. Const Vital Signs: 02/16/23 15:03 02/16/23 16:55 Temperature 97.5 F L Temperature Source Temporal Pulse Rate 83 81 Respiratory Rate 18 16 Blood Pressure 119/73 Blood Pressure Mean 88 Pulse Ox 100 97 Oxygen Delivery Method Room Air <Ron Gray MD - Last Filed: 02/16/23 18:22> Physical Exam Const Vital Signs: 02/16/23 15:03 02/16/23 16:55 Temperature 97.5 F L Temperature Source Temporal Pulse Rate 83 81 Respiratory Rate 18 16 Blood Pressure 119/73 Blood Pressure Mean 88 Pulse Ox 100 97 Oxygen Delivery Method Room Air MDM <MOY Fenton - Last Filed: 02/16/23 16:45> [facility] Treatment and Re-Evaluation :: Patient appears generally well, patient appears nontoxic, vital signs are stable. Patient presents to the emergency department with acute on chronic headache. Patient does have history of migraine-like headaches. Patient tried [id number] medication, her medications from her neurologist and they were not helping. Patient was given IM Toradol, Reglan, Benadryl. On reevaluation, the patient was resting, the patient states it did help slightly, she like to go home and rest. Patient need to follow-up closely with her neurologist. I spoke with the patient regarding breakthrough headaches. All questions answered. Patient physical examination she will no red flag signs, I do not believe the patient needs a CAT scan secondary to her history of migraines. She instructed return for any worsening symptoms. <Ron Gray MD - Last Filed: 02/16/23 18:22> [facility] Narrative Medical decision making narrative: Dr. Gray: I have personally performed a face to face assessment of the patient and have reviewed the ALANIS Note. I performed a substantive portion of the visit including all aspects of the following. My lawson findings include: History is headache with history of migraine, medications from neurologist not helping. Headache x5 days. Rates as an 8. Exam is afebrile. Vital signs noted. Regular rate and rhythm. Lungs clear to auscultation bilaterally. Abdomen soft nontender. Neurological examination nonfocal and nonlateralizing. Medical Decision Making: I reviewed her prior records. Patient has multiple visits to the ED for numerous complaints. I do not feel CT imaging is indicated. She will receive intramuscular injections for analgesia. Discharge. Follow-up neurology Other additions or changes: [None] History & Record Review Additional record(s) reviewed:: Prior ED visit Discharge Plan Triage Chief Complaint: Headache ED Midlevel Provider: Sumanth Potts ED Provider: Ron Gray Dx/Rx/DC Orders Clinical Impression: Headache Instructions: Understanding Headache Pain Prescriptions: No Action diclofenac sodium 75 mg tablet,delayed release (DR/EC) 75 mg PO BID PRN (Reason: pain) topiramate 100 mg tablet 100 mg PO QHS Rx Instructions: give with 25 mg tablet to = 125 mg medroxyprogesterone [Depo-Provera] 150 mg/mL suspension 150 mg IM .q10w Patient Comments: INJECT 1ML INTRAMUSCULARILY EVERY 12 WEEKS metoclopramide HCl 5 mg tablet 2.5 mg PO QA Qty: 15 2RF Rx Instructions: administer 30 minutes before meals aripiprazole 5 mg tablet 5 mg PO DAILY fluoxetine 40 mg capsule 40 mg PO DAILY topiramate 25 mg tablet 25 mg PO DAILY Patient Comments: take 1 tablet by mouth at bedtime Rx Instructions: give with 100 mg tablet to = 125 mg epinephrine 0.3 mg/0.3 mL auto-injector 1 mg IM PRN PRN (Reason: Allergic Reaction) Patient Comments: INJECT INTO THE MUSCLE NEEDED FOR ANAPHYLAXIS REACTION albuterol sulfate 90 mcg/actuation HFA aerosol inhaler 2 puff INHALATION PRN PRN (Reason: Wheezing) Patient Comments: inhale 2 puffs by mouth and INTO THE LUNGS every 4 hours if neede... (REFER TO PRESCRIPTION NOTES). trazodone 50 mg tablet 50 mg PO QHS Patient Comments: TAKE 1 OR 2 TABLETS BY MOUTH AT BEDTIME prazosin 1 mg capsule 2 mg PO DAILY ondansetron 4 mg tablet,disintegrating 4 mg PO Q8H PRN PRN (Reason: Nausea) Qty: 10 0RF naproxen [Naprosyn] 500 mg tablet 500 mg PO BID PRN (Reason: pain) Qty: 20 0RF promethazine 25 mg tablet 25 mg PO TID PRN (Reason: nausea and vomiting) Qty: 14 0RF sucralfate 1 gram tablet 1 g PO BID Patient Comments: take 1 tablet by mouth twice a day AT 6AM and AT 9PM benzonatate 100 mg capsule 100 mg PO TID PRN Patient Comments: take 1 to 2 capsules by mouth three times a day if needed ondansetron 4 mg tablet,disintegrating 4 mg PO Q8H PRN PRN (Reason: Nausea) Qty: 10 0RF promethazine 25 mg tablet 25 mg PO TID PRN (Reason: nausea and vomiting) Qty: 14 0RF hydrocodone-acetaminophen 5-325 mg tablet 1 tab PO Q6H PRN (Reason: pain) 3 Days Qty: 10 0RF pantoprazole 40 mg tablet,delayed release (DR/EC) 40 mg PO BID Qty: 60 3RF carvedilol 12.5 mg tablet 12.5 mg PO BID Qty: 180 3RF Rx Instructions: must administer with a meal/food Primary Care Provider: Monica Patterson Referrals: Monica Patterson NP-C [Primary Care Provider] - Activity Restrictions/Additional Instructions: Follow-up with your neurologist Disposition Disposition: Home, Self Care Discharge Date/Time: 02/16/23 16:56
[2023-02-16 16:55] VITALS: PULSE 81; RESP 16; O2SAT 97
== END 2023-02-16 16:56 | disposition home or self-care (01) ==
PROVIDERS: Emergency Provider Emergency Medicine; PCP Nurse Practitioner Family; Visit Provider Emergency Medicine
DX: R51.9 Headache, unspecified (principal); F20.9 Schizophrenia, unspecified; F31.9 Bipolar disorder, unspecified; J45.909 Unspecified asthma, uncomplicated; K21.9 Gastro-esophageal reflux disease without esophagitis; F42.9 Obsessive-compulsive disorder, unspecified; G43.909 Migraine, unspecified, not intractable, without status migrainosus; F17.290 Nicotine dependence, other tobacco product, uncomplicated
CPT/HCPCS: 96372; 99282

== ENCOUNTER 2023-02-19 13:19 | Emergency (ER) | payer MEDICAID, SELFPAY ==
[2023-02-19 13:20] VITALS: BP 137/84; PULSE 95; RESP 16; TEMP 35.8; O2SAT 100; BMI 29.5
--- NOTE | 2023-02-19 13:30 | EKG12_ITS ---
Test Reason : Blood Pressure : / mmHG Vent. Rate : 092 BPM Atrial Rate : 092 BPM P-R Int : 146 ms QRS Dur : 074 ms QT Int : 386 ms P-R-T Axes : 051 023 -12 degrees QTc Int : 477 ms Normal sinus rhythm Nonspecific T wave abnormality Prolonged QT Abnormal ECG Confirmed by JOHANNA COOL, CLAUDIA ([id number]), editor house organ BRITTA SHI ([id number]) on 02/25/2023 10:18:26 AM Referred By: Confirmed By:SUSHILA SPENCER MD
--- NOTE | 2023-02-19 13:52 | EX.ED.VIS.HA ---
HPI History of Present Illness Chief Complaint: Headache Detail of Chief Complaint: 23-year-old female with a two-point neck pain. Informant: patient Onset/Context/Timing Onset: Weeks Context: Gradual Timing: Continuous Current Severity: Mild Maximum Severity: Mild Associated Symptoms/Injury Associated Symptoms: Negative for Fever, Nausea, Vomiting, Sore Throat, Sinus Pressure, Numbness, Tingling, Preceding Aura, Visual Changes, Blurred Vision or Visual Loss Injury - WRIGHT: Negative for Direct Trauma, Fall or Assault Narrative Narrative: 23-year-old female history of migraine headaches, OCD, POTS, PTSD, hypertension. States she has had left posterior neck pain for about 2 weeks worse with movement. Denies any fall injury or trauma. No fever. No trouble with movement of her arms or legs. No weakness or numbness. Also developed chest pain today. Prior similar symptoms: No Recent Illness/Hospitalization: No PFSH PFS Medical History Anxiety Asthma Depression Diarrhea Endometriosis Gastroparesis GERD (gastroesophageal reflux disease) Migraine OCD (obsessive compulsive disorder) Pelvic pain POTS (postural orthostatic tachycardia syndrome) PTSD (post-traumatic stress disorder) Schizophrenia Tachycardia Upper abdominal pain Home Medications albuterol sulfate 90 mcg/actuation aerosol inhaler 2 puff inhalation PRN PRN Wheezing 06/14/21 [History Last Taken Unknown] epinephrine 0.3 mg/0.3 mL injection, auto-injector 1 mg IM PRN PRN Allergic Reaction 06/14/21 [History Last Taken Unknown] diclofenac sodium 75 mg tablet,delayed release 75 mg PO BID PRN pain 01/04/22 [History Last Taken Unknown] medroxyprogesterone 150 mg/mL intramuscular suspension (Depo-Provera) 150 mg IM .q10w 01/04/22 [History Last Taken Unknown] prazosin 1 mg capsule 2 mg PO DAILY 03/19/22 [History Last Taken Unknown] trazodone 50 mg tablet 50 mg PO QHS 03/19/22 [History Last Taken Unknown] metoclopramide HCl 5 mg tablet 2.5 mg (1/2 x 5 mg) PO QAC #15 tabs 08/08/22 [Rx Last Taken Unknown] ondansetron 4 mg disintegrating tablet 4 mg PO Q8H PRN PRN Nausea #10 tabs 09/07/22 [Rx Last Taken Unknown] pantoprazole 40 mg tablet,delayed release 40 mg PO BID #60 tabs 12/03/22 [Rx Last Taken Unknown] naproxen 500 mg tablet (Naprosyn) 500 mg PO BID PRN pain #20 tabs 12/18/22 [Rx Last Taken Unknown] aripiprazole 5 mg tablet 5 mg PO DAILY 01/16/23 [History Last Taken Unknown] fluoxetine 40 mg capsule 40 mg PO DAILY 01/16/23 [History Last Taken Unknown] topiramate 100 mg tablet 100 mg PO QHS 01/16/23 [History Last Taken Unknown] topiramate 25 mg tablet 25 mg PO DAILY 01/16/23 [History Last Taken Unknown] promethazine 25 mg tablet 25 mg PO TID PRN nausea and vomiting #14 tabs 01/29/23 [Rx Last Taken Unknown] benzonatate 100 mg capsule 100 mg PO TID PRN 02/06/23 [History Last Taken Unknown] sucralfate 1 gram tablet 1 g PO BID 02/06/23 [History Last Taken Unknown] hydrocodone-acetaminophen 5-325mg 5mg-325mg 1 tab PO Q6H PRN pain 3 days #10 TABLETS 02/07/23 [Rx Last Taken Unknown] ondansetron 4 mg disintegrating tablet 4 mg PO Q8H PRN PRN Nausea #10 tabs 02/07/23 [Rx Last Taken Unknown] promethazine 25 mg tablet 25 mg PO TID PRN nausea and vomiting #14 tabs 02/07/23 [Rx Last Taken Unknown] carvedilol 12.5 mg tablet 12.5 mg PO BID #180 tabs 02/11/23 [Rx Last Taken Unknown] metaxalone 800 mg tablet 800 mg PO TID 7 days #21 tabs 02/19/23 [Rx Last Taken Unknown] Allergy/AdvReac Type Severity Reaction Status Date / Time gabapentin Allergy Rash Verified 02/19/23 13:19 glycerin [From Nasal-Ease] Allergy Swelling Verified 02/19/23 13:19 methylcellulose Allergy Swelling Verified 02/19/23 13:19 [From Nasal-Ease] sertraline [From Zoloft] Allergy Anaphylaxis Verified 02/19/23 13:19 silicone Allergy Rash Verified 02/19/23 13:19 sodium chloride Allergy Swelling Verified 02/19/23 13:19 [From Nasal-Ease] zinc [From Nasal-Ease] Allergy Swelling Verified 02/19/23 13:19 lactose AdvReac Upset Verified 02/19/23 13:19 Stomach Family History Father Anxiety Depression Asthma Hypertension Mother Asthma Diabetes Anxiety Depression CAD (coronary artery disease) Myocardial infarction, Onset Age: 42 Brother Oleksandr-Danlos syndrome Grandmother Myocardial infarction, Onset Age: 41 Grandfather Myocardial infarction, Onset Age: 38 Surgical History History of colonoscopy History of esophagogastroduodenoscopy (EGD) Hx of laparoscopy Social History household members: none Smoking Status: Current every day smoker tobacco type: e-cigarettes alcohol intake: current alcohol intake frequency: holidays/special occasions only substance use type: does not use caffeine: Yes Type: carbonated beverages, coffee and tea ROS ROS ED ROS Narrative Headache. Left posterior neck pain. No chest pain. Review of Systems ROS Unobtainable: Denies due to encephalopathy Constitutional Constitutional ED: Denies chills or fever(s) Eyes Eyes: Denies blurry vision ENT ENT ED: Denies ear pain Cardiovascular Cardiovascular: Reports chest pain; Denies palpitations or racing heartbeat Respiratory/Chest Respiratory/Chest: Denies cough, dyspnea or dyspnea on exertion Gastrointestinal Gastrointestinal: Denies abdominal pain Genitourinary Genitourinary ED: Denies dysuria or hematuria Musculoskeletal Musculoskeletal: Denies arthralgias Integumentary Denies abscess Neurologic Neurologic: Reports headache(s) Psychiatric Psychiatric: Denies anxiety or depression Endocrine Endocrinology: Denies polydipsia Hematologic/Lymphatic Hematologic/Lymphatic: Denies easy bleeding Allergic/Immunologic Allergic/Immunologic ED: Denies mouth swelling or tongue swelling EXAM Physical Exam Narrative Exam Narrative: Well-appearing 23-year-old female sitting upright in bed. Vital signs are stable afebrile. Pulse ox 100% on room air no signs hypoxia. HEENT exam unremarkable. Pupils round react light. Extra motions are intact. Normal speech. No droop. No trauma. Nontender. Neck left posterior. Paracervical soft tissue tenderness consistent with mild fascial strain and spasm. Trachea midline. Full flexion extension of the neck. No meningismus. Full rotation bilaterally. Lungs clear to auscultation bilaterally. Heart regular rhythm no murmur rate about 90. Chest wall is reproducible anterior chest wall tenderness. No ecchymosis or bruising. No subcu air crepitance. Abdomen soft nontender. Moving all 4 extremities. 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 Dorsi plantarflexion intact. Fingertip to nose and [id number] within normal limits. Neurologic exam normal. NIH 0. Const Vital Signs: 02/19/23 13:20 Temperature 96.5 F L Temperature Source Temporal Pulse Rate 95 Respiratory Rate 16 Blood Pressure 137/84 H Blood Pressure Mean 101 Pulse Ox 100 Oxygen Delivery Method Room Air Positive well nourished and well developed; Negative for obese, cachectic, contractures or unkempt General Appearance ED: well developed and NAD; Negative for unkempt, cachectic, contractures, cyanotic or diaphoretic Nutritional Appearance: Negative for cachectic or obese HEENT Reports normocephalic and moist mucous membranes atraumatic; Negative for trauma or tenderness Face and Sinus: Negative for sinus tenderness Eyes PERRL and EOMs intact bilaterally General Eye ED: Negative for pale conjunctiva or scleral icterus Neck no lymphadenopathy, supple, no meningeal signs and no JVD General: Negative for tenderness Resp normal respiratory effort and clear to auscultation bilaterally Effort and Inspection: Negative for retractions Auscultation: Negative for rales, rhonchi or wheezes Cardio regular rate, regular rhythm, S1 normal heart sound, S2 normal heart sound and no murmurs Rate: Negative for bradycardia or tachycardic Rhythm: Negative for abnormal rhythm GI non-tender and non-distended Auscultation: normoactive bowel sounds Palpation: soft; Negative for firm or tender Back/Spine no CVA tenderness Back/Spine Narrative: Tenderness left paracervical soft tissue. Full flexion extension. No meningismus. Normal rotation. General Back: Negative for CVA tenderness Cervical Spine: Negative for cervical spine tenderness Thoracic Spine / Upper Back: Negative for thoracic spinal tenderness Lumbar Spine / Lower Back: Negative for lumbar spinal tenderness Extremity normal to inspection, full ROM and normal capillary refill General Extremety ED: Negative for edema or tenderness General Extremity: Negative for edema Neuro oriented x3 and CN's II-XII intact bilaterally Sensorium / Orientation: awake, alert, oriented to person, oriented to place and oriented to time; Negative for orientation impaired, lethargic or stuporous Coordination / Balance: [id number] test normal and [id number] test normal Speech: speech normal Motor Exam: strength 5/5 throughout Psych mental status grossly normal Appearance: Negative for unkempt Attitude: No agitated Mood & Affect: Negative for depressed or tearful Skin General Skin Exam: elasticity normal Lesions: no lesions Rashes: no rashes MDM MDM MDM Narrative Medical decision making narrative: 23-year-old female complaining of neck pain and headache. She has reproducible left paracervical soft tissue tenderness consistent with myofascial strain and spasm. She has normal flexion extension. She has a completely normal neurologic exam and she has reproducible chest wall pain. She will be treated with Skelaxin for myofascial strain and spasm of her neck. She did not want anything for her headache at this time. Said the migraine cocktail does not work for her in the past. She has reproducible chest wall pain. She has no DVT or PE history or risk factors. And she has reproducible chest wall pain. The EKG was unremarkable. She will be discharged home. Rhythm Strip Rhythm Strip: Sinus Rhythm Rate: 92 Ectopy: None EKG Initial EKG: Attestation: I personally reviewed and interpreted this EKG as follows: Interpretation: Sinus Rhythm and No Acute Injury Pattern Comments: Normal sinus rhythm rate of 92 no acute signs of CA or ischemia. No [id number]. Discharge Plan Triage Chief Complaint: Headache ED Provider: Ricco Bridges Dx/Rx/DC Orders Clinical Impression: Neck muscle spasm, Chest wall pain, History of posttraumatic stress disorder (PTSD), Headache Instructions: ED Neck Spasm, No Trauma Prescriptions: New metaxalone 800 mg tablet 800 mg PO TID 7 Days Qty: 21 0RF No Action diclofenac sodium 75 mg tablet,delayed release (DR/EC) 75 mg PO BID PRN (Reason: pain) topiramate 100 mg tablet 100 mg PO QHS Rx Instructions: give with 25 mg tablet to = 125 mg medroxyprogesterone [Depo-Provera] 150 mg/mL suspension 150 mg IM .q10w Patient Comments: INJECT 1ML INTRAMUSCULARILY EVERY 12 WEEKS metoclopramide HCl 5 mg tablet 2.5 mg PO QAC Qty: 15 2RF Rx Instructions: administer 30 minutes before meals aripiprazole 5 mg tablet 5 mg PO DAILY fluoxetine 40 mg capsule 40 mg PO DAILY topiramate 25 mg tablet 25 mg PO DAILY Patient Comments: take 1 tablet by mouth at bedtime Rx Instructions: give with 100 mg tablet to = 125 mg epinephrine 0.3 mg/0.3 mL auto-injector 1 mg IM PRN PRN (Reason: Allergic Reaction) Patient Comments: INJECT INTO THE MUSCLE NEEDED FOR ANAPHYLAXIS REACTION albuterol sulfate 90 mcg/actuation HFA aerosol inhaler 2 puff INHALATION PRN PRN (Reason: Wheezing) Patient Comments: inhale 2 puffs by mouth and INTO THE LUNGS every 4 hours if neede... (REFER TO PRESCRIPTION NOTES). trazodone 50 mg tablet 50 mg PO QHS Patient Comments: TAKE 1 OR 2 TABLETS BY MOUTH AT BEDTIME prazosin 1 mg capsule 2 mg PO DAILY ondansetron 4 mg tablet,disintegrating 4 mg PO Q8H PRN PRN (Reason: Nausea) Qty: 10 0RF naproxen [Naprosyn] 500 mg tablet 500 mg PO BID PRN (Reason: pain) Qty: 20 0RF promethazine 25 mg tablet 25 mg PO TID PRN (Reason: nausea and vomiting) Qty: 14 0RF sucralfate 1 gram tablet 1 g PO BID Patient Comments: take 1 tablet by mouth twice a day AT 6AM and AT 9PM benzonatate 100 mg capsule 100 mg PO TID PRN Patient Comments: take 1 to 2 capsules by mouth three times a day if needed ondansetron 4 mg tablet,disintegrating 4 mg PO Q8H PRN PRN (Reason: Nausea) Qty: 10 0RF promethazine 25 mg tablet 25 mg PO TID PRN (Reason: nausea and vomiting) Qty: 14 0RF hydrocodone-acetaminophen 5-325 mg tablet 1 tab PO Q6H PRN (Reason: pain) 3 Days Qty: 10 0RF pantoprazole 40 mg tablet,delayed release (DR/EC) 40 mg PO BID Qty: 60 3RF carvedilol 12.5 mg tablet 12.5 mg PO BID Qty: 180 3RF Rx Instructions: must administer with a meal/food Primary Care Provider: Monica Patterson Referrals: Monica Patterson, NURSING SERVICE DIRECTOR-C [Primary Care Provider] - 1 Week if not improving Activity Restrictions/Additional Instructions: You have a muscle spasm in the left side of your back of your neck. Shower, warm bath and massage. Motrin for pain and inflammation and Tylenol for pain. The muscle relaxant relaxant 1 pill 3 times a day. Follow-up with your doctor if not improving. Disposition Disposition: Home, Self Care
== END 2023-02-19 14:04 | disposition home or self-care (01) ==
LOC: ED 13:52
PROVIDERS: Emergency Provider Emergency Medicine; PCP Nurse Practitioner Family; Visit Provider Emergency Medicine
DX: M62.838 Other muscle spasm (principal); F20.9 Schizophrenia, unspecified; R07.89 Other chest pain; R51.9 Headache, unspecified; I10 Essential (primary) hypertension; F43.10 Post-traumatic stress disorder, unspecified; J45.909 Unspecified asthma, uncomplicated; G43.909 Migraine, unspecified, not intractable, without status migrainosus; F32.A Depression, unspecified; K21.9 Gastro-esophageal reflux disease without esophagitis; F41.9 Anxiety disorder, unspecified; F17.290 Nicotine dependence, other tobacco product, uncomplicated
CPT/HCPCS: 93005; 99282

== ENCOUNTER 2023-02-21 11:53 | Emergency (ER) | payer MEDICAID, SELFPAY ==
[2023-02-21 11:54] VITALS: BP 108/72; PULSE 72; RESP 16; TEMP 36.3; O2SAT 98; BMI 28.8
--- NOTE | 2023-02-21 12:14 | EDS_ITS ---
HPI History of Present Illness Chief Complaint: Abd Pain Informant: patient Onset/Context/Timing Onset: Days (7 to 10 days) Context: Gradual Onset Timing: Waxes and wanes Narrative Narrative: Patient presents secondary to left upper abdominal pain. Patient states that she usually has pain in her right upper quadrant and epigastric region for the past 7 to 10 days she had pain in the left upper quadrant that wraps up into the left side of her chest. Symptoms been ongoing for 7 to 10 days. She thought she had 1 day with a mild fever since onset of the symptoms. She has nausea and states she really cannot tolerate anything by mouth. She does not have diarrhea. Of note, patient has been in the emergency room for multiple visits since onset of the symptoms but was seen for other complaints. Lab work and notes from those visits are reviewed and were unremarkable. [facility] Medical History Anxiety Asthma Depression Diarrhea Endometriosis Gastroparesis GERD (gastroesophageal reflux disease) Migraine OCD (obsessive compulsive disorder) Pelvic pain POTS (postural orthostatic tachycardia syndrome) PTSD (post-traumatic stress disorder) Schizophrenia Tachycardia Upper abdominal pain Home Medications albuterol sulfate 90 mcg/actuation aerosol inhaler 2 puff inhalation PRN PRN Wheezing 06/14/21 [History Last Taken Unknown] epinephrine 0.3 mg/0.3 mL injection, auto-injector 1 mg IM PRN PRN Allergic Reaction 06/14/21 [History Last Taken Unknown] medroxyprogesterone 150 mg/mL intramuscular suspension (Depo-Provera) 150 mg IM .q10w 01/04/22 [History Last Taken Unknown] prazosin 1 mg capsule 1 mg PO DAILY 03/19/22 [History Last Taken Unknown] trazodone 50 mg tablet 50 mg PO QHS 03/19/22 [History Last Taken Unknown] metoclopramide HCl 5 mg tablet 2.5 mg (1/2 x 5 mg) PO QAC #15 tabs 08/08/22 [Rx Last Taken Unknown] ondansetron 4 mg disintegrating tablet 4 mg PO Q8H PRN PRN Nausea #10 tabs 09/07/22 [Rx Last Taken Unknown] pantoprazole 40 mg tablet,delayed release 40 mg PO BID #60 tabs 12/03/22 [Rx Last Taken Unknown] naproxen 500 mg tablet (Naprosyn) 500 mg PO BID PRN pain #20 tabs 12/18/22 [Rx Last Taken Unknown] aripiprazole 5 mg tablet 5 mg PO DAILY 01/16/23 [History Last Taken Unknown] fluoxetine 40 mg capsule 20 mg PO QHS 01/16/23 [History Last Taken Unknown] topiramate 100 mg tablet 100 mg PO QHS 01/16/23 [History Last Taken Unknown] topiramate 25 mg tablet 25 mg PO DAILY 01/16/23 [History Last Taken Unknown] promethazine 25 mg tablet 25 mg PO TID PRN nausea and vomiting #14 tabs 01/29/23 [Rx Last Taken Unknown] benzonatate 100 mg capsule 100 mg PO TID PRN 02/06/23 [History Last Taken Unknown] sucralfate 1 gram tablet 1 g PO BID 02/06/23 [History Last Taken Unknown] carvedilol 12.5 mg tablet 12.5 mg PO BID #180 tabs 02/11/23 [Rx Last Taken Unk nown] Allergy/AdvReac Type Severity Reaction Status Date / Time gabapentin Allergy Rash Verified 02/21/23 11:55 glycerin [From Nasal-Ease] Allergy Swelling Verified 02/21/23 11:55 methylcellulose Allergy Swelling Verified 02/21/23 11:55 [From Nasal-Ease] sertraline [From Zoloft] Allergy Anaphylaxis Verified 02/21/23 11:55 silicone Allergy Rash Verified 02/21/23 11:55 sodium chloride Allergy Swelling Verified 02/21/23 11:55 [From Nasal-Ease] zinc [From Nasal-Ease] Allergy Swelling Verified 02/21/23 11:55 lactose AdvReac Upset Verified 02/21/23 11:55 Stomach Family History Father Anxiety Depression Asthma Hypertension Mother Asthma Diabetes Anxiety Depression CAD (coronary artery disease) Myocardial infarction, Onset Age: 42 Brother Oleksandr-Danlos syndrome Grandmother Myocardial infarction, Onset Age: 41 Grandfather Myocardial infarction, Onset Age: 38 Surgical History History of colonoscopy History of esophagogastroduodenoscopy (EGD) Hx of laparoscopy Social History household members: none Smoking Status: Current every day smoker tobacco type: e-cigarettes alcohol intake: current alcohol intake frequency: holidays/special occasions only substance use type: does not use caffeine: Yes Type: carbonated beverages, coffee and tea ROS ROS ED Constitutional Constitutional ED: Reports fever(s) and subjective; Denies chills Eyes Eyes: Denies discharge from eye(s) ENT ENT ED: Denies discharge from eye(s), rhinorrhea or sore throat Cardiovascular Cardiovascular: Reports chest pain; Denies palpitations Respiratory/Chest Respiratory/Chest: Denies cough or dyspnea Gastrointestinal Gastrointestinal: Reports abdominal pain and nausea; Denies diarrhea Genitourinary Genitourinary ED: Denies dysuria Musculoskeletal Musculoskeletal: Denies back pain or extremity pain Integumentary Denies Abrasions or rash Neurologic Neurologic: Denies headache(s) or weakness Psychiatric Psychiatric: Denies anxiety or depression Allergic/Immunologic Allergic/Immunologic ED: Denies lip swelling or urticaria EXAM Physical Exam Const Vital Signs: 02/21/23 11:54 02/21/23 12:32 Temperature 97.4 F L Temperature Source Temporal Pulse Rate 72 76 Respiratory Rate 16 16 Blood Pressure 108/72 112/78 Blood Pressure Mean 84 89 Pulse Ox 98 100 Oxygen Delivery Method Room Air Room Air Positive well nourished and well developed General Appearance ED: well developed HEENT Reports moist mucous membranes Eyes EOMs intact bilaterally Chest Wall inspection of chest normal Chest Narrative: Mild left lower chest wall tenderness. No crepitus. Resp normal respiratory effort and clear to auscultation bilaterally Cardio regular rate and regular rhythm GI GI Narrative: Mild tenderness in the left upper quadrant. No guarding or rebound. Active bowel sounds noted. Extremity normal to inspection Neuro oriented x3 and no sensory deficits noted Motor Exam: strength 5/5 throughout Psych mental status grossly normal Skin no rashes or lesions noted MDM MDM MDM Narrative Medical decision making narrative: Patient's recent visits and work-ups have been reviewed. IV line established. Labwork obtained to evaluate for leukocytosis, anemia, and electrolyte derangement. Patient given 2 mg of IV Haldol which worked well for her most recent abdominal pain visit. History & Record Review Discussion w/independent historian: Patient Lab Data Attestation: I reviewed the patient's lab results. Labs: Laboratory Results - last 24 hr 02/21/23 12:30 WBC 7.4 RBC 5.21 Hgb 12.7 Hct 41.0 MCV 78.7 L MCH 24.4 L MCHC 31.0 L RDW Std Deviation 42.7 RDW Coeff of Anoop 14.9 H Plt Count 451 H MPV 8.7 Immature Gran % (Auto) 0.300 Neut % (Auto) 61.9 Lymph % (Auto) 27.9 Lewis % (Auto) 8.2 Eos % (Auto) 1.3 Baso % (Auto) 0.4 Absolute Neuts (auto) 4.6 Absolute Lymphs (auto) 2.07 Nucleated RBC % 0 Sodium 138 Potassium 3.4 L Chloride 111 H Carbon Dioxide 23.0 Anion Gap 4 L BUN 9 Creatinine 0.87 Estim Creat Clear Calc 87.59 Est GFR (MDRD) Af Amer 105 Est GFR (MDRD) Non-Af 87 BUN/Creatinine Ratio 10.3 Glucose 63 L Calcium 9.2 Total Bilirubin 0.20 Direct Bilirubin 0.06 AST 12 L ALT 17 Alkaline Phosphatase 108 Total Protein 7.9 Albumin 3.5 Globulin 4.4 H Lipase 27 Treatment and Re-Evaluation :: CBC was normal white count 7.4 with a hemoglobin of 12.7. Platelet count is elevated at 451,000. Differential is unremarkable. Chemistry studies significant for potassium 3.4 which is consistent with her last several lab draws. LFTs are unremarkable and lipase is normal. On repeat evaluation patient is resting comfortably. She is sleepy from the Haldol. Test results are discussed with her. She will continue supportive care at home. She has prescriptions for multiple GI medications I do not have anythi ng of significance to offer in addition. She states she has an appointment with GI at [facility] next month. Discharge Plan Triage Chief Complaint: Abd Pain ED Provider: Sridevi Varela Dx/Rx/DC Orders Clinical Impression: Abdominal pain Instructions: ED Abdominal Pain Unkn Cause Fem Prescriptions: No Action topiramate 100 mg tablet 100 mg PO QHS Rx Instructions: give with 25 mg tablet to = 125 mg medroxyprogesterone [Depo-Provera] 150 mg/mL suspension 150 mg IM .q10w Patient Comments: INJECT 1ML INTRAMUSCULARILY EVERY 12 WEEKS metoclopramide HCl 5 mg tablet 2.5 mg PO QAC Qty: 15 2RF Rx Instructions: administer 30 minutes before meals aripiprazole 5 mg tablet 5 mg PO DAILY fluoxetine 40 mg capsule 20 mg PO QHS topiramate 25 mg tablet 25 mg PO DAILY Patient Comments: take 1 tablet by mouth at bedtime Rx Instructions: give with 100 mg tablet to = 125 mg epinephrine 0.3 mg/0.3 mL auto-injector 1 mg IM PRN PRN (Reason: Allergic Reaction) Patient Comments: INJECT INTO THE MUSCLE NEEDED FOR ANAPHYLAXIS REACTION albuterol sulfate 90 mcg/actuation HFA aerosol inhaler 2 puff INHALATION PRN PRN (Reason: Wheezing) Patient Comments: inhale 2 puffs by mouth and INTO THE LUNGS every 4 hours if neede... (REFER TO PRESCRIPTION NOTES). trazodone 50 mg tablet 50 mg PO QHS Patient Comments: TAKE 1 OR 2 TABLETS BY MOUTH AT BEDTIME prazosin 1 mg capsule 1 mg PO DAILY ondansetron 4 mg tablet,disintegrating 4 mg PO Q8H PRN PRN (Reason: Nausea) Qty: 10 0RF naproxen [Naprosyn] 500 mg tablet 500 mg PO BID PRN (Reason: pain) Qty: 20 0RF promethazine 25 mg tablet 25 mg PO TID PRN (Reason: nausea and vomiting) Qty: 14 0RF sucralfate 1 gram tablet 1 g PO BID Patient Comments: take 1 tablet by mouth twice a day AT 6AM and AT 9PM benzonatate 100 mg capsule 100 mg PO TID PRN Patient Comments: take 1 to 2 capsules by mouth three times a day if needed pantoprazole 40 mg tablet,delayed release (DR/EC) 40 mg PO BID Qty: 60 3RF carvedilol 12.5 mg tablet 12.5 mg PO BID Qty: 180 3RF Rx Instructions: must administer with a meal/food Primary Care Provider: Monica Patterson Referrals: Monica Patterson, ATTENDANT SELF SERVICE STORE-C [Primary Care Provider] - 1 Week Disposition Disposition: Home, Self Care
[2023-02-21 12:32] VITALS: BP 112/78; PULSE 76; RESP 16; O2SAT 100
[2023-02-21] MEDS: 0.9% Normal Saline (1000mL) 1,000 ML 1000 ML IV (12:32)
[2023-02-21] MEDS: Haloperidol Lactate 5 MG/ML Vial 2 MG IV (12:32)
[2023-02-21 12:53] LABS: Absolute Lymphocyte Count 2.07 X10^3/uL (0.83-4.51); Absolute Neutrophil Count 4.6 X10^3/uL (2.0-7.7); Basophil# 0.03 X10^3/uL; Basophil% 0.4 % (0-1); Eosinophils% 1.3 % (0-5); Hemoglobin 12.7 g/dL (12.0-15.0); Lymphocyte # 2.07 X10^3/ul (0.83-4.51); Lymphocyte % 27.9 % (19-41); Mean Corpuscular Hgb 24.4 pg (27.0-32.0); Mean Corpuscular Volume 78.7 fL (81-99); Mean Platelet Vol. 8.7 fl (6.2-12.0); Monocyte# 0.61 X10^3/uL; Monocyte% 8.2 % (0-10); NRBC Flagged by Analyzer 0 % (0-5); Neutrophil # 4.58 X10^3/uL (2.7-7.7); Neutrophil % 61.9 % (47-70); Platelet Count 451 K/mm3 (150-450); RBC Distribution Width CV 14.9 % (11.6-14.6); RBC Distribution Width SD 42.7 fl (35.1-43.9); Red Blood Count 5.21 M/mm3 (4.2-5.4); White Blood Count 7.4 K/mm3 (4.4-11.0)
[2023-02-21 13:10] LABS: AST(SGOT) 12 U/L (15-37); Alanine Aminotransfer ALT/SGPT 17 U/L (13-56); Albumin, Serum 3.5 g/dL (3.2-5.0); Alkaline Phosphatase 108 U/L (45-117); Anion Gap 4 (5-15); BUN 9 mg/dL (7-18); BUN/Creat Ratio 10.3 RATIO (10-20); Bilirubin, Direct 0.06 mg/dL (0.00-0.30); Calcium,Total 9.2 mg/dL (8.5-10.1); Chloride 111 mmol/L (98-107); Creatinine, Serum 0.87 mg/dL (0.55-1.02); EST Glomerular Filtration Rate 87 mL/min (>60); Est Glom Filt Rate - Afr Amer 105 mL/min (>60); Estimated Creatinine Clearance 87.59 ml/min; Globulin 4.4 g/dL (2.2-4.2); Glucose 63 mg/dL (74-106); Lipase 27 U/L (13-75); Potassium 3.4 mmol/L (3.5-5.1); Protein, Total 7.9 g/dL (6.4-8.2); Sodium Level 138 mmol/L (136-145)
== END 2023-02-21 14:24 | disposition home or self-care (01) ==
PROVIDERS: Emergency Provider Emergency Medicine; PCP Nurse Practitioner Family; Visit Provider Emergency Medicine
DX: R10.9 Unspecified abdominal pain (principal); F20.9 Schizophrenia, unspecified; J45.909 Unspecified asthma, uncomplicated; F32.A Depression, unspecified; K21.9 Gastro-esophageal reflux disease without esophagitis; F41.9 Anxiety disorder, unspecified; F42.9 Obsessive-compulsive disorder, unspecified; G43.909 Migraine, unspecified, not intractable, without status migrainosus; F17.290 Nicotine dependence, other tobacco product, uncomplicated
CPT/HCPCS: 80048; 80076; 83690; 85025; 99283

== ENCOUNTER 2023-02-26 15:03 | Emergency (ER) | payer MEDICAID, SELFPAY ==
[2023-02-26 15:05] VITALS: BP 110/75; PULSE 104; RESP 12; TEMP 37.2; O2SAT 100; BMI 28.8
--- NOTE | 2023-02-26 16:12 | EX.ED.DYSGE1 ---
HPI <TRINO Garcia - Last Filed: 02/26/23 17:48> History of Present Illness Chief Complaint: Abd Pain Narrative Narrative: 23-year-old female with chronic abdominal issues and endometriosis. She states over the last 5 days she has had periumbilical pain and 2 days ago it moved to both lower quadrants. She has had increase of her chronic nausea but no vomiting. She has Zofran and Phenergan at home which do not help the nausea. She reports 3 episodes of loose nonbloody stool today. She has urinary frequency but no dysuria or hematuria. No fever or chills. She was seen at [facility] IM office today and advised to come to the ED for evaluation she has had an ex lap to evaluate for endometriosis. No other abdominal surgeries. [facility] <TRINO Garcia - Last Filed: 02/26/23 17:48> [facility] Medical History Anxiety Asthma Depression Diarrhea Endometriosis Gastroparesis GERD (gastroesophageal reflux disease) Migraine OCD (obsessive compulsive disorder) Pelvic pain POTS (postural orthostatic tachycardia syndrome) PTSD (post-traumatic stress disorder) Schizophrenia Tachycardia Upper abdominal pain Home Medications albuterol sulfate 90 mcg/actuation aerosol inhaler 2 puff inhalation PRN PRN Wheezing 06/14/21 [History Last Taken Unknown] epinephrine 0.3 mg/0.3 mL injection, auto-injector 1 mg IM PRN PRN Allergic Reaction 06/14/21 [History Last Taken Unknown] medroxyprogesterone 150 mg/mL intramuscular suspension (Depo-Provera) 150 mg IM .q10w 01/04/22 [History Last Taken Unknown] prazosin 1 mg capsule 1 mg PO DAILY 03/19/22 [History Last Taken Unknown] trazodone 50 mg tablet 50 mg PO QHS 03/19/22 [History Last Taken Unknown] metoclopramide HCl 5 mg tablet 2.5 mg (1/2 x 5 mg) PO QAC #15 tabs 08/08/22 [Rx Last Taken Unknown] ondansetron 4 mg disintegrating tablet 4 mg PO Q8H PRN PRN Nausea #10 tabs 09/07/22 [Rx Last Taken Unknown] pantoprazole 40 mg tablet,delayed release 40 mg PO BID #60 tabs 12/03/22 [Rx Last Taken Unknown] naproxen 500 mg tablet (Naprosyn) 500 mg PO BID PRN pain #20 tabs 12/18/22 [Rx Last Taken Unknown] aripiprazole 5 mg tablet 5 mg PO DAILY 01/16/23 [History Last Taken Unknown] fluoxetine 40 mg capsule 20 mg PO QHS 01/16/23 [History Last Taken Unknown] topiramate 100 mg tablet 100 mg PO QHS 01/16/23 [History Last Taken Unknown] topiramate 25 mg tablet 25 mg PO DAILY 01/16/23 [History Last Taken Unknown] promethazine 25 mg tablet 25 mg PO TID PRN nausea and vomiting #14 tabs 01/29/23 [Rx Last Taken Unknown] benzonatate 100 mg capsule 100 mg PO TID PRN 02/06/23 [History Last Taken Unknown] sucralfate 1 gram tablet 1 g PO BID 02/06/23 [History Last Taken Unknown] carvedilol 12.5 mg tablet 12.5 mg PO BID #180 tabs 02/11/23 [Rx Last Taken Unknown] Allergy/AdvReac Type Severity Reaction Status Date / Time gabapentin Allergy Rash Verified 02/26/23 15:05 glycerin [From Nasal-Ease] Allergy Swelling Verified 02/26/23 15:05 methylcellulose Allergy Swelling Verified 02/26/23 15:05 [From Nasal-Ease] sertraline [From Zoloft] Allergy Anaphylaxis Verified 02/21/23 11:55 silicone Allergy Rash Verified 02/26/23 15:05 sodium chloride Allergy Swelling Verified 02/26/23 15:05 [From Nasal-Ease] zinc [From Nasal-Ease] Allergy Swelling Verified 02/26/23 15:05 lactose AdvReac Upset Verified 02/26/23 15:05 Stomach Family History Father Anxiety Depression Asthma Hypertension Mother Asthma Diabetes Anxiety Depression CAD (coronary artery disease) Myocardial infarction, Onset Age: 42 Brother Oleksandr-Danlos syndrome Grandmother Myocardial infarction, Onset Age: 41 Grandfather Myocardial infarction, Onset Age: 38 Surgical History History of colonoscopy History of esophagogastroduodenoscopy (EGD) Hx of laparoscopy Social History household members: none Smoking Status: Current every day smoker tobacco type: e-cigarettes alcohol intake: current alcohol intake frequency: holidays/special occasions only substance use type: does not use caffeine: Yes Type: carbonated beverages, coffee and tea ROS <TRINO Garcia - Last Filed: 02/26/23 17:48> ROS ED ROS Narrative Constitutional: Negative for fever, chills, malaise. CVS: Negative for palpitations, chest pain, syncope. Respiratory: Negative for shortness of breath, cough. GI: Positive for abdominal pain, nausea, diarrhea. Negative for vomiting, constipation, melena, hematochezia. : Negative for dysuria, hematuria. EXAM <TRINO Garcia - Last Filed: 02/26/23 17:48> Physical Exam Narrative Exam Narrative: CONST: Patient sitting in no acute distress. EYES: Normal inspection. ENT: Normal inspection, moist mucous membranes. NECK: Normal inspection. RESP: No respiratory distress, CTAB. CVS: Regular rate and rhythm, no murmur, no gallop. ABD: Soft with slight LLQ tenderness, no guarding or rebound, nondistended, no hepatosplenomegaly. No RUQ tenderness/negative McBurney's point. Back: Normal inspection, no CVA tenderness. SKIN: Color normal, no rash, warm, dry, intact. EXTREMITIES: Normal appearance, no pedal edema. NEURO: Oriented x4. PSYCH: Normal affect. Const Vital Signs: 02/26/23 15:05 02/26/23 17:29 Temperature 98.9 F Temperature Source Oral Pulse Rate 104 H 71 Respiratory Rate 12 16 Blood Pressure 110/75 112/68 Blood Pressure Mean 86 82 Pulse Ox 100 100 Oxygen Delivery Method Room Air Room Air <Dr. Alondra Chi DO - Last Filed: 02/27/23 14:40> Physical Exam Const Vital Signs: 02/26/23 15:05 02/26/23 17:29 Temperature 98.9 F Temperature Source Oral Pulse Rate 104 H 71 Respiratory Rate 12 16 Blood Pressure 110/75 112/68 Blood Pressure Mean 86 82 Pulse Ox 100 100 Oxygen Delivery Method Room Air Room Air MDM <TRINO Garcia - Last Filed: 02/26/23 17:48> MDM MDM Narrative Medical decision making narrative: Patient has chronic abdominal issues. She states she is having increased nausea and abdominal pain. She appears well and nontoxic. Heart rate is 104 with otherwise normal vital signs. She is minimally tender in the left lower quadrant with no peritoneal signs. Differential includes GERD, gastroenteritis, IBS, IBD, UTI among others. Labs show white count of 5.8. Creatinine is slightly up at 1.12, sodium 138, potassium 3.4 which appears to be her baseline. Urinalysis showed 100 leukocyte esterase but no WBCs/RBCs and is nitrate bacteria negative. It will be cultured. test is negative. She was treated with IV fluids, Haldol, and Pepcid. She is tolerating p.o. intake. Since she has no leukocytosis and serial abdominal exams are benign so a CT is not indicated. Patient was discharged in stable condition and told to follow-up with her PCP. Lab Data Attestation: I reviewed the patient's lab results. Labs: Laboratory Results - last 24 hr 02/26/23 02/26/23 16:25 17:25 WBC 5.8 RBC 5.25 Hgb 12.7 Hct 40.5 MCV 77.1 L MCH 24.2 L MCHC 31.4 L RDW Std Deviation 39.3 RDW Coeff of Anoop 14.0 Plt Count 450 MPV 8.4 Immature Gran % (Auto) 0.200 Neut % (Auto) 60.0 Lymph % (Auto) 29.3 [place] % (Auto) 8.6 Eos % (Auto) 1.4 Baso % (Auto) 0.5 Absolute Neuts (auto) 3.5 Absolute Lymphs (auto) 1.71 Nucleated RBC % 0 Sodium 138 Potassium 3.4 L Chloride 108 H Carbon Dioxide 26.0 Anion Gap 4 L BUN 8 Creatinine 1.12 H Estim Creat Clear Calc 68.04 Est GFR (MDRD) Af Amer 78 Est GFR (MDRD) Non-Af 65 BUN/Creatinine Ratio 7.1 L Glucose 87 Calcium 8.5 Serum , Qual NEGATIVE Urine Color Yellow Urine Clarity Clear Urine pH 8.0 Ur Specific [place] 1.015 Urine Protein Negative Urine Glucose (UA) Normal Urine Ketones Negative Urine Occult Blood Negative Urine Nitrite Negative Urine Bilirubin Negative Urine Urobilinogen Normal Ur Leukocyte Esterase 100 H Urine RBC 0 SEEN Urine WBC 0-5 SEEN Ur Squamous Epith Cells 0 SEEN Urine Bacteria RARE Urine Mucus 0 SEEN <Dr. Alondra Chi, DO - Last Filed: 02/27/23 14:40> [facility] Lab Data Labs: Laboratory Results - last 24 hr 02/26/23 02/26/23 16:25 17:25 WBC 5.8 RBC 5.25 Hgb 12.7 Hct 40.5 MCV 77.1 L MCH 24.2 L MCHC 31.4 L RDW Std Deviation 39.3 RDW Coeff of Anoop 14.0 Plt Count 450 MPV 8.4 Immature Gran % (Auto) 0.200 Neut % (Auto) 60.0 Lymph % (Auto) 29.3 [place] % (Auto) 8.6 Eos % (Auto) 1.4 Baso % (Auto) 0.5 Absolute Neuts (auto) 3.5 Absolute Lymphs (auto) 1.71 Nucleated RBC % 0 Sodium 138 Potassium 3.4 L Chloride 108 H Carbon Dioxide 26.0 Anion Gap 4 L BUN 8 Creatinine 1.12 H Estim Creat Clear Calc 68.04 Est GFR (MDRD) Af Amer 78 Est GFR (MDRD) Non-Af 65 BUN/Creatinine Ratio 7.1 L Glucose 87 Calcium 8.5 Serum , Qual NEGATIVE Urine Color Yellow Urine Clarity Clear Urine pH 8.0 Ur Specific [place] 1.015 Urine Protein Negative Urine Glucose (UA) Normal Urine Ketones Negative Urine Occult Blood Negative Urine Nitrite Negative Urine Bilirubin Negative Urine Urobilinogen Normal Ur Leukocyte Esterase 100 H Urine RBC 0 SEEN Urine WBC 0-5 SEEN Ur Squamous Epith Cells 0 SEEN Urine Bacteria RARE Urine Mucus 0 SEEN Treatment and Re-Evaluation :: I have personally performed a face to face assessment of the patient and have reviewed the ALANIS Note. I performed a substantive portion of the visit including all aspects of the following. My lawson findings include: History is patient is a 23-year-old female with history of gastroparesis, chronic abdominal pain with frequent ER visits for abdominal pain as well as hypothyroidism and bipolar disorder presenting with worsening abdominal pain. She states been worsening for the past 2 weeks. She saw a new primary care doctor today who was concerned and sent her to the ER to rule out acute appendicitis. Vital signs are significant for mild tachycardia with a heart rate of 104 but otherwise normal. She is afebrile. She has nonspecific lower abdominal pain on pelvic exam but no rebound tenderness or rigidity. She is nontoxic-appearing. Will obtain labs but given her chronic abdominal pain as well as 2 weeks of symptoms I have a low suspicion for acute appendicitis/ruptured appendicitis or other acute abnormality. In addition she has had 2 ER visits in the last 2 weeks alone for her abdominal pain. Recently had a CT of her abdomen pelvis on 01/29 (a little over 1 month ago) which did not show any acute process. 2 days before that she had another CT of her abdomen and pelvis with possible findings of enteritis but no other acute process. Lab work shows no leukocytosis or other acute abnormality to explain her symptoms. I do not think she needs another abdominal imaging at this time. She is given IV Pepcid and then IV haloperidol with improvement of her symptoms. She is given some IV fluids as her creatinine is mildly above her baseline and is currently 1.12. I do not think she needs admission for this. I do feel that this is more of a chronic issue and she does not require admission at this time for this. Other additions or changes: [None] Discharge Plan Triage Chief Complaint: Abd Pain ED Midlevel Provider: Dai Fonseca ED Provider: Alondra Chi Dx/Rx/DC Orders Clinical Impression: Nausea alone, Abdominal pain Instructions: Abdominal Pain Prescriptions: No Action topiramate 100 mg tablet 100 mg PO QHS Rx Instructions: give with 25 mg tablet to = 125 mg medroxyprogesterone [Depo-Provera] 150 mg/mL suspension 150 mg IM .q10w Patient Comments: INJECT 1ML INTRAMUSCULARILY EVERY 12 WEEKS metoclopramide HCl 5 mg tablet 2.5 mg PO QA Qty: 15 2RF Rx Instructions: administer 30 minutes before meals aripiprazole 5 mg tablet 5 mg PO DAILY fluoxetine 40 mg capsule 20 mg PO QHS topiramate 25 mg tablet 25 mg PO DAILY Patient Comments: take 1 tablet by mouth at bedtime Rx Instructions: give with 100 mg tablet to = 125 mg epinephrine 0.3 mg/0.3 mL auto-injector 1 mg IM PRN PRN (Reason: Allergic Reaction) Patient Comments: INJECT INTO THE MUSCLE NEEDED FOR ANAPHYLAXIS REACTION albuterol sulfate 90 mcg/actuation HFA aerosol inhaler 2 puff INHALATION PRN PRN (Reason: Wheezing) Patient Comments: inhale 2 puffs by mouth and INTO THE LUNGS every 4 hours if neede... (REFER TO PRESCRIPTION NOTES). trazodone 50 mg tablet 50 mg PO QHS Patient Comments: TAKE 1 OR 2 TABLETS BY MOUTH AT BEDTIME prazosin 1 mg capsule 1 mg PO DAILY ondansetron 4 mg tablet,disintegrating 4 mg PO Q8H PRN PRN (Reason: Nausea) Qty: 10 0RF naproxen [Naprosyn] 500 mg tablet 500 mg PO BID PRN (Reason: pain) Qty: 20 0RF promethazine 25 mg tablet 25 mg PO TID PRN (Reason: nausea and vomiting) Qty: 14 0RF sucralfate 1 gram tablet 1 g PO BID Patient Comments: take 1 tablet by mouth twice a day AT 6AM and AT 9PM benzonatate 100 mg capsule 100 mg PO TID PRN Patient Comments: take 1 to 2 capsules by mouth three times a day if needed pantoprazole 40 mg tablet,delayed release (DR/EC) 40 mg PO BID Qty: 60 3RF carvedilol 12.5 mg tablet 12.5 mg PO BID Qty: 180 3RF Rx Instructions: must administer with a meal/food Primary Care Provider: Monica Patterson Referrals: Monica Patterson, [facility] [Primary Care Provider] - Activity Restrictions/Additional Instructions: Please follow up with your PCP Disposition Disposition: Home, Self Care Discharge Date/Time: 02/26/23 18:29
[2023-02-26] MEDS: Famotidine 200 MG/20 ML MDV 20 MG in 0.9% Normal Saline (Pres. free 8 ML 300 MG IV (16:26)
[2023-02-26 16:34] LABS: Absolute Lymphocyte Count 1.71 X10^3/uL (0.83-4.51); Absolute Neutrophil Count 3.5 X10^3/uL (2.0-7.7); Basophil# 0.03 X10^3/uL; Basophil% 0.5 % (0-1); Eosinophil# 0.08 X10^3/uL; Eosinophils% 1.4 % (0-5); Hematocrit 40.5 % (37-47); Hemoglobin 12.7 g/dL (12.0-15.0); Lymphocyte # 1.71 X10^3/ul (0.83-4.51); Lymphocyte % 29.3 % (19-41); Mean Corp Hgb Conc 31.4 g/dL (32-36); Mean Corpuscular Hgb 24.2 pg (27.0-32.0); Mean Corpuscular Volume 77.1 fL (81-99); Mean Platelet Vol. 8.4 fl (6.2-12.0); Monocyte% 8.6 % (0-10); NRBC Flagged by Analyzer 0 % (0-5); Neutrophil # 3.51 X10^3/uL (2.7-7.7); Platelet Count 450 K/mm3 (150-450); RBC Distribution Width SD 39.3 fl (35.1-43.9); Red Blood Count 5.25 M/mm3 (4.2-5.4); White Blood Count 5.8 K/mm3 (4.4-11.0)
[2023-02-26 16:46] LABS: Anion Gap 4 (5-15); BUN 8 mg/dL (7-18); BUN/Creat Ratio 7.1 RATIO (10-20); Calcium,Total 8.5 mg/dL (8.5-10.1); Chloride 108 mmol/L (98-107); Creatinine, Serum 1.12 mg/dL (0.55-1.02); EST Glomerular Filtration Rate 65 mL/min (>60); Est Glom Filt Rate - Afr Amer 78 mL/min (>60); Estimated Creatinine Clearance 68.04 ml/min; Glucose 87 mg/dL (74-106); Potassium 3.4 mmol/L (3.5-5.1); Sodium Level 138 mmol/L (136-145)
[2023-02-26 16:58] LABS: Internal QC Validated? YES +Cl - CLEAR BKGD; Pregnancy, Serum, hCG Quali. NEGATIVE Negative
[2023-02-26] MEDS: Haloperidol Lactate 5 MG/ML Vial 2 MG IV (17:20)
[2023-02-26] MEDS: 0.9% Normal Saline (1000mL) 1,000 ML 999 ML IV (17:20)
[2023-02-26 17:29] VITALS: BP 112/68; PULSE 71; RESP 16; O2SAT 100
[2023-02-26 17:31] LABS: Mucous, Urine 0 SEEN /hpf (<or=2+); Red Blood Cells-Urine 0 SEEN /hpf (0-5); Squamous Epithelial Cells - UA 0 SEEN /hpf (5-10)
[2023-02-26 17:35] LABS: Color, Urine Yellow (Yellow); Glucose, Dipstick Normal (Normal); Ketone-Dipstick Negative (Negative); Leukocyte Esterase-Dipstick 100 /ul (Negative); Nitrite-Dipstick Negative (Negative); Occult Blood-Urine Negative /ul (Negative); Protein-Dipstick Negative (Negative); Specific Gravity, Urine 1.015 (1.002-1.030); Urine Bilirubin Dipstick Negative (Negative); Urine Clarity Clear (Clear); Urine Urobilinogen Normal (Normal)
[2023-02-26 17:41] LABS: Bacteria RARE /hpf (None Seen); White Blood Cells 0-5 SEEN /hpf (0-5)
== END 2023-02-26 18:29 | disposition home or self-care (01) ==
PROVIDERS: Physician Assistant; Emergency Provider Emergency Medicine; PCP Nurse Practitioner Family; Visit Provider Emergency Medicine
DX: R10.814 Left lower quadrant abdominal tenderness (principal); F31.9 Bipolar disorder, unspecified; G89.29 Other chronic pain; R11.0 Nausea; R35.0 Frequency of micturition; R19.7 Diarrhea, unspecified; E03.9 Hypothyroidism, unspecified; F17.290 Nicotine dependence, other tobacco product, uncomplicated; Z79.899 Other long term (current) drug therapy
CPT/HCPCS: 80048; 81001; 84703; 85025; 87086; 96361; 96374; 99283; J7040; A4216; J3490

== ENCOUNTER 2023-03-02 02:05 | Emergency (ER) | payer MEDICAID, SELFPAY ==
[2023-03-02 02:07] VITALS: BP 99/52; PULSE 89; RESP 16; TEMP 36.6; O2SAT 99; BMI 29.4
--- NOTE | 2023-03-02 02:37 | RAD_ITS ---
STUDY: X-RAY CHEST REASON FOR EXAM: Female, 23 years old patient with chest pain. TECHNIQUE: PA and lateral views of the chest. COMPARISON: None. FINDINGS: Cardiac monitoring leads are present. The lungs are clear and expanded. There is no demonstrated pleural abnormality. Normal size heart. Normal mediastinum and dennis. Normal visualized pulmonary arteries. Normal visualized aortic arch and descending thoracic aorta. Normal visualized thoracic spine. Normal visualized ribs, clavicles, and shoulders. There is no demonstrated abnormality of the visualized soft tissue structures of the upper abdomen. RAD/Chest PA and Lateral IMPRESSION: No radiographic evidence of acute cardiopulmonary disease. Electronically Signed: Elena Pringle MD at 3:26 EST ,
[2023-03-02 02:42] LABS: Absolute Lymphocyte Count 2.07 X10^3/uL (0.83-4.51); Absolute Neutrophil Count 6.2 X10^3/uL (2.0-7.7); Basophil# 0.03 X10^3/uL; Basophil% 0.3 % (0-1); Eosinophil# 0.11 X10^3/uL; Eosinophils% 1.2 % (0-5); Hematocrit 42.9 % (37-47); Hemoglobin 13.5 g/dL (12.0-15.0); Lymphocyte # 2.07 X10^3/ul (0.83-4.51); Lymphocyte % 23.2 % (19-41); Mean Corp Hgb Conc 31.5 g/dL (32-36); Mean Corpuscular Hgb 24.3 pg (27.0-32.0); Mean Corpuscular Volume 77.2 fL (81-99); Monocyte% 5.6 % (0-10); NRBC Flagged by Analyzer 0 % (0-5); Neutrophil # 6.21 X10^3/uL (2.7-7.7); Neutrophil % 69.5 % (47-70); Platelet Count 502 K/mm3 (150-450); RBC Distribution Width CV 13.7 % (11.6-14.6); RBC Distribution Width SD 38.5 fl (35.1-43.9); Red Blood Count 5.56 M/mm3 (4.2-5.4); White Blood Count 8.9 K/mm3 (4.4-11.0)
[2023-03-02 02:53] LABS: D-Dimer Quantitative (DVT/PE) 0.44 FEU/ug/m (0.27-0.49)
--- NOTE | 2023-03-02 02:55 | EKG12_ITS ---
Test Reason : CP Blood Pressure : / mmHG Vent. Rate : 087 BPM Atrial Rate : 087 BPM P-R Int : 148 ms QRS Dur : 070 ms QT Int : 348 ms P-R-T Axes : 061 041 -55 degrees QTc Int : 418 ms Normal sinus rhythm T wave abnormality, consider inferior ischemia Abnormal ECG Confirmed by SALLY COOL, HUBER ([id number]), digital editor BRITTA SHI ([id number]) on 03/06/2023 12:33:16 PM Referred By: Confirmed By:HUBER ZAVALA MD
[2023-03-02 03:09] LABS: Anion Gap 7 (5-15); BUN 7 mg/dL (7-18); BUN/Creat Ratio 5.9 RATIO (10-20); Calcium,Total 9.3 mg/dL (8.5-10.1); Chloride 110 mmol/L (98-107); Creatinine, Serum 1.18 mg/dL (0.55-1.02); EST Glomerular Filtration Rate 61 mL/min (>60); Est Glom Filt Rate - Afr Amer 74 mL/min (>60); Estimated Creatinine Clearance 64.58 ml/min; Glucose 83 mg/dL (74-106); Magnesium 2.3 mg/dL (1.6-2.6); Potassium 2.7 mmol/L (3.5-5.1); Sodium Level 139 mmol/L (136-145); Troponin-I HS 3 pg/mL (3.0-54.0)
--- NOTE | 2023-03-02 03:56 | EDS_ITS ---
HPI History of Present Illness Chief Complaint: Chest Pain Informant: patient and EMS Narrative Narrative: Patient is a 23-year-old female with past medical history of POTS anxiety/depression schizophrenia and obsessive-compulsive disorder. She states that she has had a midsternal to left-sided pressure/pain in her chest for the past 3 days. She states that the symptoms are constant. She denies any nausea vomiting diaphoresis or shortness of breath. She denies any recent surgery travel or history of DVT/PE. She does state that her mother and grandmother both had heart attacks at age 40. She denies any illicit drug use. She states that she was having difficulty sleeping this evening/morning because of her symptoms and therefore called EMS to bring her in for evaluation [facility] Medical History Anxiety Asthma Depression Diarrhea Endometriosis Gastroparesis GERD (gastroesophageal reflux disease) Migraine OCD (obsessive compulsive disorder) Pelvic pain POTS (postural orthostatic tachycardia syndrome) PTSD (post-traumatic stress disorder) Schizophrenia Tachycardia Upper abdominal pain Home Medications albuterol sulfate 90 mcg/actuation aerosol inhaler 2 puff inhalation PRN PRN Wheezing 06/14/21 [History Last Taken Unknown] epinephrine 0.3 mg/0.3 mL injection, auto-injector 1 mg IM PRN PRN Allergic Reaction 06/14/21 [History Last Taken Unknown] medroxyprogesterone 150 mg/mL intramuscular suspension (Depo-Provera) 150 mg IM .q10w 01/04/22 [History Last Taken Unknown] prazosin 1 mg capsule 1 mg PO DAILY 03/19/22 [History Last Taken Unknown] trazodone 50 mg tablet 50 mg PO QHS 03/19/22 [History Last Taken Unknown] metoclopramide HCl 5 mg tablet 2.5 mg (1/2 x 5 mg) PO QAC #15 tabs 08/08/22 [Rx Last Taken Unknown] ondansetron 4 mg disintegrating tablet 4 mg PO Q8H PRN PRN Nausea #10 tabs 09/07/22 [Rx Last Taken Unknown] pantoprazole 40 mg tablet,delayed release 40 mg PO BID #60 tabs 12/03/22 [Rx Last Taken Unknown] naproxen 500 mg tablet (Naprosyn) 500 mg PO BID PRN pain #20 tabs 12/18/22 [Rx Last Taken Unknown] aripiprazole 5 mg tablet 5 mg PO DAILY 01/16/23 [History Last Taken Unknown] fluoxetine 40 mg capsule 20 mg PO QHS 01/16/23 [History Last Taken Unknown] topiramate 100 mg tablet 100 mg PO QHS 01/16/23 [History Last Taken Unknown] topiramate 25 mg tablet 25 mg PO DAILY 01/16/23 [History Last Taken Unknown] promethazine 25 mg tablet 25 mg PO TID PRN nausea and vomiting #14 tabs 01/29/23 [Rx Last Taken Unknown] benzonatate 100 mg capsule 100 mg PO TID PRN 02/06/23 [History Last Taken Unknown] sucralfate 1 gram tablet 1 g PO BID 02/06/23 [History Last Taken Unknown] carvedilol 12.5 mg tablet 12.5 mg PO BID #180 tabs 02/11/23 [Rx Last Taken Unknown] cyclobenzaprine 10 mg tablet 10 mg PO Q8H 03/02/23 [History Last Taken Unknown] potassium chloride 10 mEq capsule,extended release 10 meq PO DAILY 7 days #7 caps 03/02/23 [Rx Last Taken Unknown] Allergy/AdvReac Type Severity Reaction Status Date / Time gabapentin Allergy Rash Verified 03/02/23 02:10 glycerin [From Nasal-Ease] Allergy Swelling Verified 03/02/23 02:10 methylcellulose Allergy Swelling Verified 03/02/23 02:10 [From Nasal-Ease] sertraline [From Zoloft] Allergy Anaphylaxis Verified 03/02/23 02:10 silicone Allergy Rash Verified 03/02/23 02:10 sodium chloride Allergy Swelling Verified 03/02/23 02:10 [From Nasal-Ease] zinc [From Nasal-Ease] Allergy Swelling Verified 03/02/23 02:10 lactose AdvReac Upset Verified 03/02/23 02:10 Stomach Family History Father Anxiety Depression Asthma Hypertension Mother Asthma Diabetes Anxiety Depression CAD (coronary artery disease) Myocardial infarction, Onset Age: 42 Brother Oleksandr-Danlos syndrome Grandmother Myocardial infarction, Onset Age: 41 Grandfather Myocardial infarction, Onset Age: 38 Surgical History History of colonoscopy History of esophagogastroduodenoscopy (EGD) Hx of laparoscopy Social History household members: none Smoking Status: Current every day smoker tobacco type: e-cigarettes alcohol intake: current alcohol intake frequency: holidays/special occasions only substance use type: does not use caffeine: Yes Type: carbonated beverages, coffee and tea ROS ROS ED Constitutional Constitutional ED: Denies chills or fever(s) ENT ENT ED: Denies sore throat Cardiovascular Cardiovascular: Reports chest pain; Denies palpitations or racing heartbeat Respiratory/Chest Respiratory/Chest: Denies cough or dyspnea Gastrointestinal Gastrointestinal: Denies abdominal pain, diarrhea, nausea or vomiting Genitourinary Genitourinary ED: Denies dysuria Musculoskeletal Musculoskeletal: Denies back pain or myalgias Integumentary Denies rash Neurologic Neurologic: Denies headache(s) Psychiatric Psychiatric: Reports depression Hematologic/Lymphatic Hematologic/Lymphatic: Denies easy bleeding or easy bruising EXAM Physical Exam Const Vital Signs: 03/02/23 02:07 03/02/23 02:11 03/02/23 04:08 Temperature 97.8 F Temperature Source Temporal Pulse Rate 89 76 Respiratory Rate 16 15 Respiratory Effort Normal Non-Labored Blood Pressure 99/52 L 102/61 Blood Pressure Mean 67 74 Pulse Ox 99 100 Oxygen Delivery Method Room Air 03/02/23 04:06 Temperature Temperature Source Pulse Rate 78 Respiratory Rate 15 Respiratory Effort Blood Pressure 102/61 Blood Pressure Mean 74 Pulse Ox 100 Oxygen Delivery Method Room Air Positive well nourished and well developed General Appearance ED: well developed; Negative for pallor HEENT HEENT Narrative: Normocephalic atraumatic Eyes PERRL and EOMs intact bilaterally General Eye ED: Negative for scleral icterus Neck supple Chest Wall Chest Narrative: There is reproducible pain along the left costal joints without bony deformity or crepitance the patient states is similar to the pain she has been experiencing Resp normal respiratory effort and clear to auscultation bilaterally Cardio regular rate and regular rhythm Rate: other Other Details: Heart is regular rate and rhythm without murmurs rubs or gallops Radial and carotid pulses are equal and symmetric GI normal to inspection, nondistended, normoactive bowel sounds, non-tender, non- distended and no masses GI Narrative: No voluntary guarding or rigidity No pulsatile mass or fluid wave Auscultation: normoactive bowel sounds Palpation: soft Extremity normal to inspection Extremity Narrative: No asymmetric edema no pitting edema negative Homans' sign bilaterally Neuro oriented x3 and CN's II-XII intact bilaterally Sensorium / Orientation: alert Psych Psych Narrative: Patient has a flat affect Skin no rashes or lesions noted General Skin Exam: Negative for jaundice or pallor MDM MDM MDM Narrative Medical decision making narrative: Patient presented to the ER with stable vitals. Patient is low risk for cardiovascular disease and DVT however as these are differentials for recurrent chest discomfort I did elect to perform basic laboratory studies. Patient has been seen recently in the last 7 to 10 days secondary to chest discomfort as well as abdominal pain and has had previous blood work and therefore my concern for biliary colic acute cholecystitis or pancreatitis as a cause of her atypical chest pain is low and do not feel there is need for repeat studies to address these concerns. There is also potential this could be due to pneumonia or pneum othorax or pneumomediastinum I did elect to perform a chest x-ray. Chest x-ray revealed no acute lung pathology. The patient's troponin was 3 and as she reports constant chest discomfort for 3 days with a normal troponin and EKG this rules out cardiac event and there is no need for delta troponin. Her D-dimer is also normal going against DVT or dissection. Her potassium was low at 2.7 but she is not having any cardiac dysrhythmia secondary to it and therefore this can be replaced orally and she is otherwise safe for discharge. History & Record Review Discussion w/independent historian: Patient Lab Data Attestation: I reviewed the patient's lab results. Labs: Laboratory Results - last 24 hr 03/02/23 01:55 WBC 8.9 RBC 5.56 H Hgb 13.5 Hct 42.9 MCV 77.2 L MCH 24.3 L MCHC 31.5 L RDW Std Deviation 38.5 RDW Coeff of Anoop 13.7 Plt Count 502 H MPV 9.0 Immature Gran % (Auto) 0.200 Neut % (Auto) 69.5 Lymph % (Auto) 23.2 [place] % (Auto) 5.6 Eos % (Auto) 1.2 Baso % (Auto) 0.3 Absolute Neuts (auto) 6.2 Absolute Lymphs (auto) 2.07 Nucleated RBC % 0 D-Dimer Quant (PE/DVT) 0.44 Sodium 139 Potassium 2.7 L* Chloride 110 H Carbon Dioxide 22.0 Anion Gap 7 BUN 7 Creatinine 1.18 H Estim Creat Clear Calc 64.58 Est GFR (MDRD) Af Amer 74 Est GFR (MDRD) Non-Af 61 BUN/Creatinine Ratio 5.9 L Glucose 83 Calcium 9.3 Magnesium 2.3 Troponin I High Sens 3 Radiography Diagnostic Testing: Clinical Impression(s) from Imaging Studies Chest X-Ray 03/02/23 02:37 IMPRESSION: No radiographic evidence of acute cardiopulmonary disease. Electronically Signed: Elena Pringle MD at 3:26 EST Reading Location ID and State: [facility] / [place] , Service support , 2 view chest x-ray as interpreted by the emergency medicine physician reveals no acute infiltrate pneumothorax pleural effusion or widening of the mediastinum Discharge Plan Triage Chief Complaint: Chest Pain ED Provider: Bryant Reyes Dx/Rx/DC Orders Clinical Impression: Chest wall pain, Hypokalemia Instructions: Hypokalemia Dc, ED Chest Pain, Noncardiac Prescriptions: New potassium chloride 10 mEq capsule, extended release 10 meq PO DAILY 7 Days Qty: 7 0RF No Action topiramate 100 mg tablet 100 mg PO QHS Rx Instructions: give with 25 mg tablet to = 125 mg medroxyprogesterone [Depo-Provera] 150 mg/mL suspension 150 mg IM .q10w Patient Comments: INJECT 1ML INTRAMUSCULARILY EVERY 12 WEEKS metoclopramide HCl 5 mg tablet 2.5 mg PO QAC Qty: 15 2RF Rx Instructions: administer 30 minutes before meals aripiprazole 5 mg tablet 5 mg PO DAILY fluoxetine 40 mg capsule 20 mg PO QHS topiramate 25 mg tablet 25 mg PO DAILY Patient Comments: take 1 tablet by mouth at bedtime Rx Instructions: give with 100 mg tablet to = 125 mg epinephrine 0.3 mg/0.3 mL auto-injector 1 mg IM PRN PRN (Reason: Allergic Reaction) Patient Comments: INJECT INTO THE MUSCLE NEEDED FOR ANAPHYLAXIS REACTION albuterol sulfate 90 mcg/actuation HFA aerosol inhaler 2 puff INHALATION PRN PRN (Reason: Wheezing) Patient Comments: inhale 2 puffs by mouth and INTO THE LUNGS every 4 hours if neede... (REFER TO PRESCRIPTION NOTES). trazodone 50 mg tablet 50 mg PO QHS Patient Comments: TAKE 1 OR 2 TABLETS BY MOUTH AT BEDTIME prazosin 1 mg capsule 1 mg PO DAILY ondansetron 4 mg tablet,disintegrating 4 mg PO Q8H PRN PRN (Reason: Nausea) Qty: 10 0RF naproxen [Naprosyn] 500 mg tablet 500 mg PO BID PRN (Reason: pain) Qty: 20 0RF promethazine 25 mg tablet 25 mg PO TID PRN (Reason: nausea and vomiting) Qty: 14 0RF sucralfate 1 gram tablet 1 g PO BID Patient Comments: take 1 tablet by mouth twice a day AT 6AM and AT 9PM benzonatate 100 mg capsule 100 mg PO TID PRN Patient Comments: take 1 to 2 capsules by mouth three times a day if needed cyclobenzaprine 10 mg tablet 10 mg PO Q8H Patient Comments: take 1 tablet by mouth three times a day pantoprazole 40 mg tablet,delayed release (DR/EC) 40 mg PO BID Qty: 60 3RF carvedilol 12.5 mg tablet 12.5 mg PO BID Qty: 180 3RF Rx Instructions: must administer with a meal/food Primary Care Provider: Monica Patterson Referrals: Monica Patterson, [facility] [Primary Care Provider] - Activity Restrictions/Additional Instructions: Your work-up today showed no sign of heart damage or blood clot or lung pathology. Your potassium was low at 2.7 and therefore take the prescribed potassium supplement daily as directed and return to the ER should you have any further concerns Disposition Disposition: Home, Self Care Discharge Date/Time: 03/02/23 04:15
[2023-03-02 04:06] VITALS: BP 102/61; PULSE 78; RESP 15; O2SAT 100
[2023-03-02 04:08] VITALS: BP 102/61; PULSE 76; RESP 15; O2SAT 100
[2023-03-02] MEDS: Potassium Chloride Oral Tablet 20 MEQ 40 MEQ PO (04:09)
== END 2023-03-02 04:15 | disposition home or self-care (01) ==
PROVIDERS: Emergency Provider Emergency Medicine; PCP Nurse Practitioner Family; Visit Provider Emergency Medicine
DX: R07.89 Other chest pain (principal); F20.9 Schizophrenia, unspecified; E87.6 Hypokalemia; F32.A Depression, unspecified; Z79.899 Other long term (current) drug therapy; K21.9 Gastro-esophageal reflux disease without esophagitis; F42.9 Obsessive-compulsive disorder, unspecified; G43.909 Migraine, unspecified, not intractable, without status migrainosus; F17.290 Nicotine dependence, other tobacco product, uncomplicated
CPT/HCPCS: 71046; 80048; 83735; 84484; 85025; 85379; 93005; 99285

== ENCOUNTER 2023-03-05 16:08 | Emergency (ER) | payer MEDICAID, SELFPAY ==
[2023-03-05 16:09] VITALS: BP 108/77; PULSE 94; RESP 18; TEMP 36.6; O2SAT 100; BMI 28.6
--- NOTE | 2023-03-05 17:15 | EDS_ITS ---
HPI <TRINO Garcia - Last Filed: 03/05/23 19:14> History of Present Illness Chief Complaint: Abd Pain Narrative Narrative: 23-year-old female has chronic abdominal pain, gastroparesis, gastritis. She states over the last 2 weeks she has had intermittent left upper quadrant abdominal pain. It worsened yesterday and she vomited 3 times. She has had no further emesis and was able to eat today but the pain persisted today and she thought her upper abdomen looked swollen. Her last bowel movement was about 2 days ago and she has to strain and it is somewhat hard. Today she also thought her left leg was swollen and weak when walking. She also feels hot and cold but has no documented fever. She states she is on stomach medications but does not remember the names of them. She was a patient of Dr. Hdz but is switching over to [facility] and has a first appointment next month. [facility] <TRINO Garcia - Last Filed: 03/05/23 19:14> [facility] Medical History Anxiety Asthma Depression Diarrhea Endometriosis Gastroparesis GERD (gastroesophageal reflux disease) Migraine OCD (obsessive compulsive disorder) Pelvic pain POTS (postural orthostatic tachycardia syndrome) PTSD (post-traumatic stress disorder) Schizophrenia Tachycardia Upper abdominal pain Home Medications albuterol sulfate 90 mcg/actuation aerosol inhaler 2 puff inhalation PRN PRN Wheezing 06/14/21 [History Last Taken Unknown] epinephrine 0.3 mg/0.3 mL injection, auto-injector 1 mg IM PRN PRN Allergic Reaction 06/14/21 [History Last Taken Unknown] medroxyprogesterone 150 mg/mL intramuscular suspension (Depo-Provera) 150 mg IM .q10w 01/04/22 [History Last Taken Unknown] prazosin 1 mg capsule 1 mg PO DAILY PTSD 03/19/22 [History Last Taken Unknown] trazodone 50 mg tablet 50 mg PO QHS 03/19/22 [History Last Taken Unknown] metoclopramide HCl 5 mg tablet 2.5 mg (1/2 x 5 mg) PO QAC #15 tabs 08/08/22 [Rx Last Taken Unknown] ondansetron 4 mg disintegrating tablet 4 mg PO Q8H PRN PRN Nausea #10 tabs 09/07/22 [Rx Last Taken Unknown] pantoprazole 40 mg tablet,delayed release 40 mg PO BID #60 tabs 12/03/22 [Rx Last Taken Unknown] naproxen 500 mg tablet (Naprosyn) 500 mg PO BID PRN pain #20 tabs 12/18/22 [Rx Last Taken Unknown] aripiprazole 5 mg tablet 5 mg PO DAILY schizophrenia 01/16/23 [History Last Taken Unknown] fluoxetine 40 mg capsule 20 mg PO QHS depression 01/16/23 [History Last Taken Unknown] topiramate 100 mg tablet 100 mg PO QHS 01/16/23 [History Last Taken Unknown] topiramate 25 mg tablet 25 mg PO DAILY 01/16/23 [History Last Taken Unknown] promethazine 25 mg tablet 25 mg PO TID PRN nausea and vomiting #14 tabs 01/29/23 [Rx Last Taken Unknown] benzonatate 100 mg capsule 100 mg PO TID PRN 02/06/23 [History Last Taken Unknown] carvedilol 12.5 mg tablet 12.5 mg PO BID #180 tabs 02/11/23 [Rx Last Taken Unknown] cyclobenzaprine 10 mg tablet 10 mg PO Q8H 03/02/23 [History Last Taken Unknown] potassium chloride 10 mEq capsule,extended release 10 meq PO DAILY 7 days #7 caps 03/02/23 [Rx Last Taken Unknown] Allergy/AdvReac Type Severity Reaction Status Date / Time gabapentin Allergy Rash Verified 03/05/23 16:09 glycerin [From Nasal-Ease] Allergy Swelling Verified 03/05/23 16:09 methylcellulose Allergy Swelling Verified 03/05/23 16:09 [From Nasal-Ease] sertraline [From Zoloft] Allergy Anaphylaxis Verified 03/05/23 16:09 silicone Allergy Rash Verified 03/05/23 16:09 sodium chloride Allergy Swelling Verified 03/05/23 16:09 [From Nasal-Ease] zinc [From Nasal-Ease] Allergy Swelling Verified 03/05/23 16:09 lactose AdvReac Upset Verified 03/05/23 16:09 Stomach Family History Father Anxiety Depression Asthma Hypertension Mother Asthma Diabetes Anxiety Depression CAD (coronary artery disease) Myocardial infarction, Onset Age: 42 Brother Oleksandr-Danlos syndrome Grandmother Myocardial infarction, Onset Age: 41 Grandfather Myocardial infarction, Onset Age: 38 Surgical History History of colonoscopy History of esophagogastroduodenoscopy (EGD) Hx of laparoscopy Social History household members: none Smoking Status: Current every day smoker tobacco type: e-cigarettes alcohol intake: current alcohol intake frequency: holidays/special occasions only substance use type: does not use caffeine: Yes Type: carbonated beverages, coffee and tea ROS <TRINO Garcia - Last Filed: 03/05/23 19:14> ROS ED ROS Narrative Constitutional: Negative for fever, chills, malaise. CVS: Negative for palpitations, chest pain. Respiratory: Negative for shortness of breath, cough. GI: Positive for abdominal pain, nausea, vomiting. Negative for diarrhea, melena, hematochezia. : Negative for dysuria, hematuria or frequency. EXAM <TRINO Garcia - Last Filed: 03/05/23 19:14> Physical Exam Narrative Exam Narrative: CONST: Patient sitting in no acute distress. EYES: Normal inspection. NECK: Normal inspection. RESP: No respiratory distress, CTAB. CVS: Regular rate and rhythm, no murmur, no gallop. ABD: Soft with tenderness in the left upper quadrant with no visible discomfort, no guarding or rebound, nondistended, no hepatosplenomegaly. Back: Normal inspection, no CVA tenderness. SKIN: Color normal, no rash, warm, dry, intact. EXTREMITIES: Normal appearance, no pedal edema. NEURO: Oriented x4. PSYCH: Normal affect. Const Vital Signs: 03/05/23 16:09 Temperature 97.8 F Temperature Source Temporal Pulse Rate 94 Respiratory Rate 18 Blood Pressure 108/77 Blood Pressure Mean 87 Pulse Ox 100 Oxygen Delivery Method Room Air <Dr. Alexei Chakraborty DO - Last Filed: 03/05/23 19:49> Physical Exam Const Vital Signs: 03/05/23 16:09 Temperature 97.8 F Temperature Source Temporal Pulse Rate 94 Respiratory Rate 18 Blood Pressure 108/77 Blood Pressure Mean 87 Pulse Ox 100 Oxygen Delivery Method Room Air MDM <TRINO Garcia - Last Filed: 03/05/23 19:14> MDM MDM Narrative Medical decision making narrative: Patient presents with acute on chronic abdominal pain. It is mainly in the left upper quadrant moves around to the left mid back. She has been tolerating p.o. intake today. She reports mild constipation but is having bowel movements and normal urination. She appears well and nontoxic and is afebrile with normal vital signs. She has a normal cardiopulmonary exam. She has mild tenderness to left upper quadrant per her report no visible discomfort. No peritoneal signs. No CVA tenderness. She was concerned her left leg was swollen and warm but there is no swelling, compartments are soft, and MSPs and reflexes are intact. Differential includes GERD, PUD, gastroparesis, kidney stone among others. Labs show normal white count of 5.8. There is mild hypokalemia at 3.3 which appears to be her baseline. Her creatinine is slightly elevated at 1.16. It has been around this twice in the last week and prior to that was 0.87. I ordered IV normal saline and Pepcid for her symptoms. I do not think she needs a CT scan as she has benign exam, no leukocytosis, and had a normal CT 1 month ago. I recommend follow-up with her PCP and GI and she was discharged in stable condition. External records reviewed: Most recent CT abdomen/pelvis was 01/29/2023 which showed no acute findings Lab Data Attestation: I reviewed the patient's lab results. Labs: Laboratory Results - last 24 hr 03/05/23 03/05/23 17:12 17:25 WBC 5.8 RBC 4.80 Hgb 11.7 L Hct 37.1 MCV 77.3 L MCH 24.4 L MCHC 31.5 L RDW Std Deviation 38.6 RDW Coeff of Anoop 13.7 Plt Count 397 MPV 8.7 Immature Gran % (Auto) 0.200 Neut % (Auto) 53.1 Lymph % (Auto) 36.1 Frontier % (Auto) 8.7 Eos % (Auto) 1.6 Baso % (Auto) 0.3 Absolute Neuts (auto) 3.1 Absolute Lymphs (auto) 2.08 Nucleated RBC % 0 Sodium 141 Potassium 3.3 L Chloride 111 H Carbon Dioxide 23.0 Anion Gap 7 BUN 7 Creatinine 1.16 H Estim Creat Clear Calc 65.69 Est GFR (MDRD) Af Amer 75 Est GFR (MDRD) Non-Af 62 BUN/Creatinine Ratio 6.0 L Glucose 85 Calcium 8.2 L Total Bilirubin 0.10 L AST 11 L ALT 18 Alkaline Phosphatase 113 Total Protein 7.6 Albumin 3.4 Globulin 4.2 Albumin/Globulin Ratio 0.8 L Serum , Qual NEGATIVE Urine Color Yellow Urine Clarity Sl. Cloudy Urine pH 8.0 Ur Specific [place] 1.015 Urine Protein Negative Urine Glucose (UA) Normal Urine Ketones Negative Urine Occult Blood Negative Urine Nitrite Negative Urine Bilirubin Negative Urine Urobilinogen 1 H Ur Leukocyte Esterase Negative Urine RBC 0 SEEN Urine WBC 0-5 SEEN Ur Squamous Epith Cells 0 SEEN Urine Bacteria 0 SEEN Urine Mucus 0 SEEN <Dr. Alexei Chakraborty, DO - Last Filed: 03/05/23 19:49> [facility] Lab Data Labs: Laboratory Results - last 24 hr 03/05/23 03/05/23 17:12 17:25 WBC 5.8 RBC 4.80 Hgb 11.7 L Hct 37.1 MCV 77.3 L MCH 24.4 L MCHC 31.5 L RDW Std Deviation 38.6 RDW Coeff of Anoop 13.7 Plt Count 397 MPV 8.7 Immature Gran % (Auto) 0.200 Neut % (Auto) 53.1 Lymph % (Auto) 36.1 Frontier % (Auto) 8.7 Eos % (Auto) 1.6 Baso % (Auto) 0.3 Absolute Neuts (auto) 3.1 Absolute Lymphs (auto) 2.08 Nucleated RBC % 0 Sodium 141 Potassium 3.3 L Chloride 111 H Carbon Dioxide 23.0 Anion Gap 7 BUN 7 Creatinine 1.16 H Estim Creat Clear Calc 65.69 Est GFR (MDRD) Af Amer 75 Est GFR (MDRD) Non-Af 62 BUN/Creatinine Ratio 6.0 L Glucose 85 Calcium 8.2 L Total Bilirubin 0.10 L AST 11 L ALT 18 Alkaline Phosphatase 113 Total Protein 7.6 Albumin 3.4 Globulin 4.2 Albumin/Globulin Ratio 0.8 L Serum , Qual NEGATIVE Urine Color Yellow Urine Clarity Sl. Cloudy Urine pH 8.0 Ur Specific [place] 1.015 Urine Protein Negative Urine Glucose (UA) Normal Urine Ketones Negative Urine Occult Blood Negative Urine Nitrite Negative Urine Bilirubin Negative Urine Urobilinogen 1 H Ur Leukocyte Esterase Negative Urine RBC 0 SEEN Urine WBC 0-5 SEEN Ur Squamous Epith Cells 0 SEEN Urine Bacteria 0 SEEN Urine Mucus 0 SEEN Treatment and Re-Evaluation :: I have personally performed a face to face assessment of the patient and have reviewed the ALANIS Note. I performed a substantive portion of the visit including all aspects of the following. My lawson findings include: History: Patient presents with abdominal pain that has been intermittent over the last week. Patient describes her pain as dull. Patient states her pain is mainly over the left upper abdomen. Patient states it is worse with movement. Patient states nothing makes it better. Patient admits to some nausea and vomiting. Patient denies any diarrhea, melena, or hematochezia. Patient admits to some urinary frequency but denies any dysuria or hematuria. Patient admits to some subjective fevers but did not take her temperature. Exam: Vital signs are stable. Patient is afebrile. Patient is in no acute distress. Oral mucosa is pink and moist. Neck is supple. Trachea is midline. There is no JVD. Heart was regular rate and rhythm. Lungs are clear and equal bilaterally. Abdomen is soft. Bowel sounds are normal. There is some mild left upper quadrant tenderness. There is no rebound or guarding noted. Cranial nerves II through XII are intact. There are no focal motor or sensory deficits noted. Medical Decision Making: Differential diagnosis includes ectopic , urinary tract infection, pyelonephritis, gastroenteritis, and peptic ulcer disease. CBC will be obtained to assess for leukocytosis and anemia. Comprehensive metabolic profile will be obtained to assess for hepatic function, renal function, and electrolyte abnormality. Serum hCG will be obtained to assess for . Urinalysis will be obtained to assess for urinary tract infection and hematuria. CBC was reviewed. There is a mild anemia with a hemoglobin of 11.7 and hematocrit 37.1. Platelets were normal. White blood cell count was normal. Comprehensive metabolic profile was reviewed. Potassium was slightly low at 3.3. Creatinine was 1.16. The remainder was essentially within normal limits. Serum hCG was reviewed and was negative. Urinalysis was reviewed. There is no evidence of urinary tract infection or hematuria. Patient was advised of her findings. Patient was instructed to follow-up with her primary care physician in 5 to 7 days. Patient was instructed return if worse in any way. Patient understood and was agreeable with the plan. All questions were answered. Discharge Plan Triage Chief Complaint: Abd Pain ED Midlevel Provider: Dai Fonseca ED Provider: Alexei Chakraborty Dx/Rx/DC Orders Clinical Impression: Abdominal pain Instructions: Abdominal Pain Prescriptions: No Action topiramate 100 mg tablet 100 mg PO QHS Rx Instructions: give with 25 mg tablet to = 125 mg medroxyprogesterone [Depo-Provera] 150 mg/mL suspension 150 mg IM .q10w Patient Comments: INJECT 1ML INTRAMUSCULARILY EVERY 12 WEEKS metoclopramide HCl 5 mg tablet 2.5 mg PO QAC Qty: 15 2RF Rx Instructions: administer 30 minutes before meals aripiprazole 5 mg tablet 5 mg PO DAILY fluoxetine 40 mg capsule 20 mg PO QHS topiramate 25 mg tablet 25 mg PO DAILY Patient Comments: take 1 tablet by mouth at bedtime Rx Instructions: give with 100 mg tablet to = 125 mg epinephrine 0.3 mg/0.3 mL auto-injector 1 mg IM PRN PRN (Reason: Allergic Reaction) Patient Comments: INJECT INTO THE MUSCLE NEEDED FOR ANAPHYLAXIS REACTION albuterol sulfate 90 mcg/actuation HFA aerosol inhaler 2 puff INHALATION PRN PRN (Reason: Wheezing) Patient Comments: inhale 2 puffs by mouth and INTO THE LUNGS every 4 hours if neede... (REFER TO PRESCRIPTION NOTES). trazodone 50 mg tablet 50 mg PO QHS Patient Comments: TAKE 1 OR 2 TABLETS BY MOUTH AT BEDTIME prazosin 1 mg capsule 1 mg PO DAILY ondansetron 4 mg tablet,disintegrating 4 mg PO Q8H PRN PRN (Reason: Nausea) Qty: 10 0RF naproxen [Naprosyn] 500 mg tablet 500 mg PO BID PRN (Reason: pain) Qty: 20 0RF promethazine 25 mg tablet 25 mg PO TID PRN (Reason: nausea and vomiting) Qty: 14 0RF benzonatate 100 mg capsule 100 mg PO TID PRN Patient Comments: take 1 to 2 capsules by mouth three times a day if needed cyclobenzaprine 10 mg tablet 10 mg PO Q8H Patient Comments: take 1 tablet by mouth three times a day potassium chloride 10 mEq capsule, extended release 10 meq PO DAILY 7 Days Qty: 7 0RF pantoprazole 40 mg tablet,delayed release (DR/EC) 40 mg PO BID Qty: 60 3RF carvedilol 12.5 mg tablet 12.5 mg PO BID Qty: 180 3RF Rx Instructions: must administer with a meal/food Primary Care Provider: Monica Patterson Referrals: Monica Patterson, [employer] [Primary Care Provider] - Disposition Disposition: Home, Self Care
[2023-03-05 17:24] LABS: Absolute Lymphocyte Count 2.08 X10^3/uL (0.83-4.51); Absolute Neutrophil Count 3.1 X10^3/uL (2.0-7.7); Basophil# 0.02 X10^3/uL; Basophil% 0.3 % (0-1); Eosinophil# 0.09 X10^3/uL; Eosinophils% 1.6 % (0-5); Hematocrit 37.1 % (37-47); Hemoglobin 11.7 g/dL (12.0-15.0); Lymphocyte # 2.08 X10^3/ul (0.83-4.51); Lymphocyte % 36.1 % (19-41); Mean Corp Hgb Conc 31.5 g/dL (32-36); Mean Corpuscular Hgb 24.4 pg (27.0-32.0); Mean Corpuscular Volume 77.3 fL (81-99); Mean Platelet Vol. 8.7 fl (6.2-12.0); Monocyte% 8.7 % (0-10); NRBC Flagged by Analyzer 0 % (0-5); Neutrophil # 3.06 X10^3/uL (2.7-7.7); Neutrophil % 53.1 % (47-70); Platelet Count 397 K/mm3 (150-450); RBC Distribution Width CV 13.7 % (11.6-14.6); RBC Distribution Width SD 38.6 fl (35.1-43.9); White Blood Count 5.8 K/mm3 (4.4-11.0)
[2023-03-05 17:33] LABS: Bacteria 0 SEEN /hpf (None Seen); Mucous, Urine 0 SEEN /hpf (<or=2+); Red Blood Cells-Urine 0 SEEN /hpf (0-5); Squamous Epithelial Cells - UA 0 SEEN /hpf (5-10)
[2023-03-05 17:37] LABS: Color, Urine Yellow (Yellow); Glucose, Dipstick Normal (Normal); Ketone-Dipstick Negative (Negative); Leukocyte Esterase-Dipstick Negative /ul (Negative); Nitrite-Dipstick Negative (Negative); Occult Blood-Urine Negative /ul (Negative); Protein-Dipstick Negative (Negative); Specific Gravity, Urine 1.015 (1.002-1.030); Urine Bilirubin Dipstick Negative (Negative); Urine Clarity Sl. Cloudy (Clear); Urine Urobilinogen 1 mg/dl (Normal)
[2023-03-05 17:42] LABS: White Blood Cells 0-5 SEEN /hpf (0-5)
[2023-03-05 17:42] LABS: ALB/GLOB Ratio 0.8 RATIO (0.9-2.4); AST(SGOT) 11 U/L (15-37); Alanine Aminotransfer ALT/SGPT 18 U/L (13-56); Albumin, Serum 3.4 g/dL (3.2-5.0); Alkaline Phosphatase 113 U/L (45-117); Anion Gap 7 (5-15); BUN 7 mg/dL (7-18); Calcium,Total 8.2 mg/dL (8.5-10.1); Chloride 111 mmol/L (98-107); Creatinine, Serum 1.16 mg/dL (0.55-1.02); EST Glomerular Filtration Rate 62 mL/min (>60); Est Glom Filt Rate - Afr Amer 75 mL/min (>60); Estimated Creatinine Clearance 65.69 ml/min; Globulin 4.2 g/dL (2.2-4.2); Glucose 85 mg/dL (74-106); Potassium 3.3 mmol/L (3.5-5.1); Protein, Total 7.6 g/dL (6.4-8.2); Sodium Level 141 mmol/L (136-145)
[2023-03-05] MEDS: Famotidine 200 MG/20 ML MDV 20 MG in 0.9% Normal Saline (Pres. free 8 ML 300 MG IV (17:47)
[2023-03-05] MEDS: 0.9% Normal Saline (1000mL) 1,000 ML 999 ML IV (17:48)
[2023-03-05 17:50] LABS: Internal QC Validated? YES +Cl - CLEAR BKGD; Pregnancy, Serum, hCG Quali. NEGATIVE Negative
== END 2023-03-05 18:54 | disposition home or self-care (01) ==
PROVIDERS: Emergency Provider Emergency Medicine; PCP Nurse Practitioner Family; Visit Provider Emergency Medicine
DX: R10.12 Left upper quadrant pain (principal); F20.9 Schizophrenia, unspecified; F43.10 Post-traumatic stress disorder, unspecified; Z79.899 Other long term (current) drug therapy; F32.A Depression, unspecified; K21.9 Gastro-esophageal reflux disease without esophagitis; G43.909 Migraine, unspecified, not intractable, without status migrainosus; F17.290 Nicotine dependence, other tobacco product, uncomplicated
CPT/HCPCS: 80053; 81001; 84703; 85025; 96361; 96374; 99283; J7030; A4216; J3490

== ENCOUNTER 2023-03-08 22:47 | Emergency (ER) | payer MEDICAID, SELFPAY ==
--- NOTE | 2023-03-08 | RAD_ITS ---
INDICATION: abd pain COMPARISON: Chest radiograph 03/02/2023. FINDINGS: Single frontal view of the chest. No acute focal airspace disease or mass lesion. No pneumothorax. No pleural effusion. Cardiomediastinal silhouette is unremarkable. 2 frontal views of the abdomen. Nonobstructive bowel gas pattern. No obvious free air. No definite suspicious calcifications. No mass appreciated. RAD/Acute Abdomen Inc Chest IMPRESSION: Chest and abdomen with no acute disease. Electronically Signed: Wai Leonard MD at 0:22 EST ,
[2023-03-08 22:48] VITALS: BP 119/75; PULSE 95; RESP 18; TEMP 36.3; O2SAT 100; BMI 28.0
[2023-03-08 23:12] LABS: Mucous, Urine 0 SEEN /hpf (<or=2+); Squamous Epithelial Cells - UA 0 SEEN /hpf (5-10)
[2023-03-08 23:15] LABS: Absolute Lymphocyte Count 2.18 X10^3/uL (0.83-4.51); Absolute Neutrophil Count 2.6 X10^3/uL (2.0-7.7); Basophil# 0.02 X10^3/uL; Basophil% 0.4 % (0-1); Eosinophil# 0.09 X10^3/uL; Eosinophils% 1.7 % (0-5); Hematocrit 38.4 % (37-47); Hemoglobin 12.4 g/dL (12.0-15.0); Lymphocyte # 2.18 X10^3/ul (0.83-4.51); Lymphocyte % 41.8 % (19-41); Mean Corp Hgb Conc 32.3 g/dL (32-36); Mean Corpuscular Hgb 24.9 pg (27.0-32.0); Mean Corpuscular Volume 77.3 fL (81-99); Mean Platelet Vol. 8.5 fl (6.2-12.0); Monocyte# 0.36 X10^3/uL; Monocyte% 6.9 % (0-10); NRBC Flagged by Analyzer 0 % (0-5); Neutrophil # 2.55 X10^3/uL (2.7-7.7); Platelet Count 385 K/mm3 (150-450); RBC Distribution Width SD 38.9 fl (35.1-43.9); Red Blood Count 4.97 M/mm3 (4.2-5.4); White Blood Count 5.2 K/mm3 (4.4-11.0)
[2023-03-08 23:19] LABS: Color, Urine Yellow (Yellow); Glucose, Dipstick Normal (Normal); Ketone-Dipstick Negative (Negative); Leukocyte Esterase-Dipstick Negative /ul (Negative); Nitrite-Dipstick Negative (Negative); Occult Blood-Urine Negative /ul (Negative); Protein-Dipstick Negative (Negative); Specific Gravity, Urine 1.015 (1.002-1.030); Urine Bilirubin Dipstick Negative (Negative); Urine Clarity Sl. Cloudy (Clear); Urine Urobilinogen 1 mg/dl (Normal)
[2023-03-08 23:30] LABS: Internal QC Validated? YES +Cl - CLEAR BKGD; Pregnancy, Serum, hCG Quali. NEGATIVE Negative
[2023-03-08 23:39] LABS: ALB/GLOB Ratio 0.8 RATIO (0.9-2.4); AST(SGOT) 12 U/L (15-37); Alanine Aminotransfer ALT/SGPT 17 U/L (13-56); Albumin, Serum 3.3 g/dL (3.2-5.0); Alkaline Phosphatase 98 U/L (45-117); Anion Gap 4 (5-15); BUN 7 mg/dL (7-18); BUN/Creat Ratio 5.9 RATIO (10-20); Calcium,Total 8.6 mg/dL (8.5-10.1); Chloride 114 mmol/L (98-107); Creatinine, Serum 1.18 mg/dL (0.55-1.02); EST Glomerular Filtration Rate 61 mL/min (>60); Est Glom Filt Rate - Afr Amer 74 mL/min (>60); Estimated Creatinine Clearance 67.29 ml/min; Globulin 3.9 g/dL (2.2-4.2); Glucose 98 mg/dL (74-106); Potassium 3.4 mmol/L (3.5-5.1); Protein, Total 7.2 g/dL (6.4-8.2); Sodium Level 141 mmol/L (136-145)
[2023-03-08 23:48] LABS: Amorphous Sediment 3+; Bacteria 1+ /hpf (None Seen); Red Blood Cells-Urine 0-5 SEEN /hpf (0-5); White Blood Cells 0-5 SEEN /hpf (0-5)
[2023-03-09 00:11] LABS: Lipase 24 U/L (13-75)
--- NOTE | 2023-03-09 00:54 | EDS_ITS ---
HPI History of Present Illness Chief Complaint: Abd Pain Informant: patient Narrative Narrative: Patient is a 23-year-old female with past medical history of anxiety depression GERD and POTS. She states she has had abdominal pain in the right upper mid and right lower abdomen for the last 2 days. She denies any previous abdominal surgeries but states she has had decreased bowel movements. She states that she has concerned that she is blocked because of her pain and decreased bowel movements. She reports nausea without vomiting. She denies any fevers or chills or concern for [facility] Medical History Anxiety Asthma Depression Diarrhea Endometriosis Gastroparesis GERD (gastroesophageal reflux disease) Migraine OCD (obsessive compulsive disorder) Pelvic pain POTS (postural orthostatic tachycardia syndrome) PTSD (post-traumatic stress disorder) Schizophrenia Tachycardia Upper abdominal pain Home Medications albuterol sulfate 90 mcg/actuation aerosol inhaler 2 puff inhalation PRN PRN Wheezing 06/14/21 [History Last Taken Unknown] epinephrine 0.3 mg/0.3 mL injection, auto-injector 1 mg IM PRN PRN Allergic Reaction 06/14/21 [History Last Taken Unknown] medroxyprogesterone 150 mg/mL intramuscular suspension (Depo-Provera) 150 mg IM .q10w 01/04/22 [History Last Taken Unknown] prazosin 1 mg capsule 1 mg PO DAILY PTSD 03/19/22 [History Last Taken Unknown] trazodone 50 mg tablet 50 mg PO QHS 03/19/22 [History Last Taken Unknown] metoclopramide HCl 5 mg tablet 2.5 mg (1/2 x 5 mg) PO QAC #15 tabs 08/08/22 [Rx Last Taken Unknown] ondansetron 4 mg disintegrating tablet 4 mg PO Q8H PRN PRN Nausea #10 tabs 09/07/22 [Rx Last Taken Unknown] pantoprazole 40 mg tablet,delayed release 40 mg PO BID #60 tabs 12/03/22 [Rx Last Taken Unknown] naproxen 500 mg tablet (Naprosyn) 500 mg PO BID PRN pain #20 tabs 12/18/22 [Rx Last Taken Unknown] aripiprazole 5 mg tablet 5 mg PO DAILY schizophrenia 01/16/23 [History Last Taken Unknown] fluoxetine 40 mg capsule 20 mg PO QHS depression 01/16/23 [History Last Taken Unknown] topiramate 100 mg tablet 100 mg PO QHS 01/16/23 [History Last Taken Unknown] topiramate 25 mg tablet 25 mg PO DAILY 01/16/23 [History Last Taken Unknown] promethazine 25 mg tablet 25 mg PO TID PRN nausea and vomiting #14 tabs 01/29/23 [Rx Last Taken Unknown] benzonatate 100 mg capsule 100 mg PO TID PRN 02/06/23 [History Last Taken Unknown] carvedilol 12.5 mg tablet 12.5 mg PO BID #180 tabs 02/11/23 [Rx Last Taken Unknown] cyclobenzaprine 10 mg tablet 10 mg PO Q8H 03/02/23 [History Last Taken Unknown] potassium chloride 10 mEq capsule,extended release 10 meq PO DAILY 7 days #7 caps 03/02/23 [Rx Last Taken Unknown] Allergy/AdvReac Type Severity Reaction Status Date / Time gabapentin Allergy Rash Verified 03/08/23 22:50 glycerin [From Nasal-Ease] Allergy Swelling Verified 03/08/23 22:50 methylcellulose Allergy Swelling Verified 03/08/23 22:50 [From Nasal-Ease] sertraline [From Zoloft] Allergy Anaphylaxis Verified 03/08/23 22:50 silicone Allergy Rash Verified 03/08/23 22:50 sodium chloride Allergy Swelling Verified 03/08/23 22:50 [From Nasal-Ease] zinc [From Nasal-Ease] Allergy Swelling Verified 03/08/23 22:50 lactose AdvReac Upset Verified 03/08/23 22:50 Stomach Family History Father Anxiety Depression Asthma Hypertension Mother Asthma Diabetes Anxiety Depression CAD (coronary artery disease) Myocardial infarction, Onset Age: 42 Brother Oleksandr-Danlos syndrome Grandmother Myocardial infarction, Onset Age: 41 Grandfather Myocardial infarction, Onset Age: 38 Surgical History History of colonoscopy History of esophagogastroduodenoscopy (EGD) Hx of laparoscopy Social History household members: none Smoking Status: Current every day smoker tobacco type: e-cigarettes alcohol intake: current alcohol intake frequency: holidays/special occasions only substance use type: does not use caffeine: Yes Type: carbonated beverages, coffee and tea ROS ROS ED Constitutional Constitutional ED: Denies chills or fever(s) ENT ENT ED: Denies sore throat Cardiovascular Cardiovascular: Denies chest pain Respiratory/Chest Respiratory/Chest: Denies cough or dyspnea Gastrointestinal Gastrointestinal: Reports abdominal pain, constipation and nausea; Denies diarrhea or vomiting Genitourinary Genitourinary ED: Denies dysuria or hematuria Musculoskeletal Musculoskeletal: Denies myalgias Integumentary Denies rash Neurologic Neurologic: Denies headache(s) Hematologic/Lymphatic Hematologic/Lymphatic: Denies easy bleeding or easy bruising EXAM Physical Exam Const Vital Signs: 03/08/23 22:48 03/09/23 01:04 03/09/23 01:05 Temperature 97.4 F L Temperature Source Temporal Pulse Rate 95 66 Respiratory Rate 18 18 Blood Pressure 119/75 Blood Pressure Mean 89 Pulse Ox 100 98 Oxygen Delivery Method Room Air Room Air Positive well nourished and well developed General Appearance ED: well developed; Negative for pallor HEENT HEENT Narrative: Mucous membranes are slightly dry and tacky without secondary changes to suggest infection Eyes PERRL and EOMs intact bilaterally General Eye ED: Negative for scleral icterus Neck supple Resp normal respiratory effort and clear to auscultation bilaterally Cardio regular rate and regular rhythm Rate: other Other Details: Heart is regular rate and rhythm without murmurs rubs or gallops GI non-distended GI Narrative: Abdomen is soft and nondistended with hypoactive bowel sounds. There is mild diffuse pain with palpation without voluntary guarding or rigidity. No pulsatile mass or fluid wave. No increased tympany. Negative Hu sign. Auscultation: hypoactive bowel sounds Palpation: soft Back/Spine no CVA tenderness Extremity normal to inspection Extremity Narrative: No asymmetric edema no pitting edema negative Homans' sign bilaterally Neuro oriented x3, CN's II-XII intact bilaterally and no sensory deficits noted Sensorium / Orientation: alert Motor Exam: strength 5/5 throughout Psych Psych Narrative: Patient has a flat affect Skin no rashes or lesions noted General Skin Exam: Negative for jaundice or pallor MDM MDM MDM Narrative Medical decision making narrative: Patient presented to the ER with stable vitals and complained of abdominal pain with decreased bowel movements. Differential diagnosis is for constipation versus ileus versus small bowel obstruction versus gastritis versus complication versus pancreatitis. Secondary to this basic labs were obtained and an acute abdominal x-ray was ordered patient has no history of previous abdominal surgeries or history of intestinal cancer which puts her at high risk for a small bowel obstruction. Basic labs revealed no clinically significant findings and x-ray showed mild constipation without air-fluid levels to suggest obstruction or signs of perforation. On reevaluation patient is resting comfortably abdomen remains soft and nonsurgical and therefore with negative workup is otherwise safe for History & Record Review Discussion w/independent historian: Patient Lab Data Attestation: I reviewed the patient's lab results. Labs: Laboratory Results - last 24 hr 03/08/23 03/08/23 23:05 23:08 WBC 5.2 RBC 4.97 Hgb 12.4 Hct 38.4 MCV 77.3 L MCH 24.9 L MCHC 32.3 RDW Std Deviation 38.9 RDW Coeff of Anoop 14.0 Plt Count 385 MPV 8.5 Immature Gran % (Auto) 0.200 Neut % (Auto) 49.0 Lymph % (Auto) 41.8 H [place] % (Auto) 6.9 Eos % (Auto) 1.7 Baso % (Auto) 0.4 Absolute Neuts (auto) 2.6 Absolute Lymphs (auto) 2.18 Nucleated RBC % 0 Sodium 141 Potassium 3.4 L Chloride 114 H Carbon Dioxide 23.0 Anion Gap 4 L BUN 7 Creatinine 1.18 H Estim Creat Clear Calc 67.29 Est GFR (MDRD) Af Amer 74 Est GFR (MDRD) Non-Af 61 BUN/Creatinine Ratio 5.9 L Glucose 98 Calcium 8.6 Total Bilirubin 0.10 L AST 12 L ALT 17 Alkaline Phosphatase 98 Total Protein 7.2 Albumin 3.3 Globulin 3.9 Albumin/Globulin Ratio 0.8 L Lipase 24 Serum , Qual NEGATIVE Urine Color Yellow Urine Clarity Sl. Cloudy Urine pH 8.0 Ur Specific [place] 1.015 Urine Protein Negative Urine Glucose (UA) Normal Urine Ketones Negative Urine Occult Blood Negative Urine Nitrite Negative Urine Bilirubin Negative Urine Urobilinogen 1 H Ur Leukocyte Esterase Negative Urine RBC 0-5 SEEN Urine WBC 0-5 SEEN Ur Squamous Epith Cells 0 SEEN Amorphous Sediment 3+ Urine Bacteria 1+ Urine Mucus 0 SEEN Radiography Diagnostic Testing: Clinical Impression(s) from Imaging Studies Acute Abdomen Series 03/08/23 00:00 IMPRESSION: Chest and abdomen with no acute disease. Electronically Signed: Wai Leonard MD at 0:22 EST , Acute abdominal series with 1 view chest as interpreted by the emergency medicine physician displays a nonspecific nonobstructive bowel gas pattern with mild constipation. Chest x-ray component reveals no acute infiltrate pneumothorax or pleural effusion. Discharge Plan Triage Chief Complaint: Abd Pain ED Provider: Bryant Reyes Dx/Rx/DC Orders Clinical Impression: Nonspecific abdominal pain, Bipolar disorder, Nausea, Mild dehydration Instructions: Abdominal Pain Prescriptions: No Action topiramate 100 mg tablet 100 mg PO QHS Rx Instructions: give with 25 mg tablet to = 125 mg medroxyprogesterone [Depo-Provera] 150 mg/mL suspension 150 mg IM .q10w Patient Comments: INJECT 1ML INTRAMUSCULARILY EVERY 12 WEEKS metoclopramide HCl 5 mg tablet 2.5 mg PO QAC Qty: 15 2RF Rx Instructions: administer 30 minutes before meals aripiprazole 5 mg tablet 5 mg PO DAILY fluoxetine 40 mg capsule 20 mg PO QHS topiramate 25 mg tablet 25 mg PO DAILY Patient Comments: take 1 tablet by mouth at bedtime Rx Instructions: give with 100 mg tablet to = 125 mg epinephrine 0.3 mg/0.3 mL auto-injector 1 mg IM PRN PRN (Reason: Allergic Reaction) Patient Comments: INJECT INTO THE MUSCLE NEEDED FOR ANAPHYLAXIS REACTION albuterol sulfate 90 mcg/actuation HFA aerosol inhaler 2 puff INHALATION PRN PRN (Reason: Wheezing) Patient Comments: inhale 2 puffs by mouth and INTO THE LUNGS every 4 hours if neede... (REFER TO PRESCRIPTION NOTES). trazodone 50 mg tablet 50 mg PO QHS Patient Comments: TAKE 1 OR 2 TABLETS BY MOUTH AT BEDTIME prazosin 1 mg capsule 1 mg PO DAILY ondansetron 4 mg tablet,disintegrating 4 mg PO Q8H PRN PRN (Reason: Nausea) Qty: 10 0RF naproxen [Naprosyn] 500 mg tablet 500 mg PO BID PRN (Reason: pain) Qty: 20 0RF promethazine 25 mg tablet 25 mg PO TID PRN (Reason: nausea and vomiting) Qty: 14 0RF benzonatate 100 mg capsule 100 mg PO TID PRN Patient Comments: take 1 to 2 capsules by mouth three times a day if needed cyclobenzaprine 10 mg tablet 10 mg PO Q8H Patient Comments: take 1 tablet by mouth three times a day potassium chloride 10 mEq capsule, extended release 10 meq PO DAILY 7 Days Qty: 7 0RF pantoprazole 40 mg tablet,delayed release (DR/EC) 40 mg PO BID Qty: 60 3RF carvedilol 12.5 mg tablet 12.5 mg PO BID Qty: 180 3RF Rx Instructions: must administer with a meal/food Primary Care Provider: Monica Patterson Referrals: Monica Patterson, PHARMACY TECHNICIAN INFUSION-[facility] [Primary Care Provider] - Activity Restrictions/Additional Instructions: Please keep yourself well-hydrated and begin taking MiraLAX or Metamucil to help with constipation as your x-ray does show changes concerning for this. Return to the ER should you have any further concerns Disposition Disposition: Home, Self Care Discharge Date/Time: 03/09/23 01:06
[2023-03-09 01:05] VITALS: PULSE 66; RESP 18; O2SAT 98
== END 2023-03-09 01:06 | disposition home or self-care (01) ==
PROVIDERS: Emergency Provider Emergency Medicine; PCP Nurse Practitioner Family; Visit Provider Emergency Medicine
DX: R10.9 Unspecified abdominal pain (principal); F31.9 Bipolar disorder, unspecified; E86.0 Dehydration; F17.210 Nicotine dependence, cigarettes, uncomplicated; R11.0 Nausea; J45.909 Unspecified asthma, uncomplicated; F42.9 Obsessive-compulsive disorder, unspecified
CPT/HCPCS: 74022; 80053; 81001; 83690; 84703; 85025; 99284; A4216

== ENCOUNTER 2023-04-17 18:39 | Emergency (ER) | payer MEDICAID, SELFPAY ==
[2023-04-17 18:40] VITALS: BP 134/79; PULSE 101; RESP 18; TEMP 36.2; O2SAT 100; BMI 28.1
[2023-04-17 18:58] LABS: Absolute Neutrophil Count 6.5 X10^3/uL (2.0-7.7); Basophil# 0.04 X10^3/uL; Basophil% 0.4 % (0-1); Eosinophil# 0.06 X10^3/uL; Eosinophils% 0.6 % (0-5); Hematocrit 39.2 % (37-47); Hemoglobin 12.5 g/dL (12.0-15.0); Lymphocyte % 25.8 % (19-41); Mean Corp Hgb Conc 31.9 g/dL (32-36); Mean Corpuscular Hgb 24.4 pg (27.0-32.0); Mean Corpuscular Volume 76.4 fL (81-99); Mean Platelet Vol. 8.4 fl (6.2-12.0); Monocyte# 0.85 X10^3/uL; Monocyte% 8.4 % (0-10); NRBC Flagged by Analyzer 0 % (0-5); Neutrophil % 64.5 % (47-70); Platelet Count 478 K/mm3 (150-450); RBC Distribution Width CV 14.5 % (11.6-14.6); RBC Distribution Width SD 39.7 fl (35.1-43.9); Red Blood Count 5.13 M/mm3 (4.2-5.4); White Blood Count 10.1 K/mm3 (4.4-11.0)
[2023-04-17 19:14] LABS: Internal QC Validated? YES +Cl - CLEAR BKGD; Pregnancy, Serum, hCG Quali. NEGATIVE Negative
[2023-04-17 19:18] LABS: ALB/GLOB Ratio 0.8 RATIO (0.9-2.4); AST(SGOT) 10 U/L (15-37); Alanine Aminotransfer ALT/SGPT 18 U/L (13-56); Albumin, Serum 3.6 g/dL (3.2-5.0); Alkaline Phosphatase 118 U/L (45-117); Anion Gap 6 (5-15); BUN 7 mg/dL (7-18); BUN/Creat Ratio 8.8 RATIO (10-20); Calcium,Total 9.8 mg/dL (8.5-10.1); Chloride 109 mmol/L (98-107); EST Glomerular Filtration Rate 95 mL/min (>60); Est Glom Filt Rate - Afr Amer 115 mL/min (>60); Estimated Creatinine Clearance 99.26 ml/min; Globulin 4.4 g/dL (2.2-4.2); Glucose 98 mg/dL (74-106); Potassium 3.5 mmol/L (3.5-5.1); Sodium Level 138 mmol/L (136-145)
[2023-04-17 19:19] LABS: Bacteria 0 SEEN /hpf (None Seen); Mucous, Urine 0 SEEN /hpf (<or=2+); Red Blood Cells-Urine 0 SEEN /hpf (0-5); Squamous Epithelial Cells - UA 0 SEEN /hpf (5-10); White Blood Cells 0 SEEN /hpf (0-5)
[2023-04-17 19:20] LABS: Color, Urine Yellow (Yellow); Glucose, Dipstick Normal (Normal); Ketone-Dipstick Negative (Negative); Leukocyte Esterase-Dipstick Negative /ul (Negative); Nitrite-Dipstick Negative (Negative); Occult Blood-Urine Negative /ul (Negative); Protein-Dipstick Negative (Negative); Urine Bilirubin Dipstick Negative (Negative); Urine Clarity Clear (Clear); Urine Urobilinogen Normal (Normal)
--- NOTE | 2023-04-17 20:27 | EX.ED.DYSGE1 ---
HPI History of Present Illness Chief Complaint: Abd Pain Detail of Chief Complaint: Bright red blood per rectum and yellow-colored stool, which concerned the p Informant: patient Onset/Context/Timing Onset: Today Context: Sudden Onset Timing: Intermittent Quality: Bright red blood with yellow-colored stool Location: Lower GI Current Severity: Gone Maximum Severity: Moderate Worsened by: Bowel movement Relieved by: Not applicable Associated Symptoms Associated Symptoms: Lightheadedness and right upper quadrant pain Narrative Narrative: Patient is a 23-year-old woman. She has history of hemorrhoids. She states her hemorrhoids are normally painful. Her lightheadedness may be due to her diagnosis of POTS. Patient denies intolerance to greasy or fried foods. She has no history of biliary disease. There is no family history of biliary disease. Patient denies fever or chills. Patient denies cough or shortness of breath. Patient denies history of renal or ureterolithiasis. She denies dysuria, frequency, urgency or hematuria. There is no history of Crohn's disease or ulcerative colitis. She denies diarrhea. She has not been on antibiotics recently. Prior similar symptoms: Yes Recent Illness/Hospitalization: No PFSH PFSH Medical History Anxiety Asthma Depression Diarrhea Endometriosis Gastroparesis GERD (gastroesophageal reflux disease) Migraine OCD (obsessive compulsive disorder) Pelvic pain POTS (postural orthostatic tachycardia syndrome) PTSD (post-traumatic stress disorder) Schizophrenia Tachycardia Upper abdominal pain Home Medications albuterol sulfate 90 mcg/actuation aerosol inhaler 2 puff inhalation PRN PRN Wheezing 06/14/21 [History Last Taken Unknown] epinephrine 0.3 mg/0.3 mL injection, auto-injector 1 mg IM PRN PRN Allergic Reaction 06/14/21 [History Last Taken Unknown] medroxyprogesterone 150 mg/mL intramuscular suspension (Depo-Provera) 150 mg IM .q10w 01/04/22 [History Last Taken Unknown] prazosin 1 mg capsule 1 mg PO DAILY PTSD 03/19/22 [History Last Taken Unknown] trazodone 50 mg tablet 50 mg PO QHS 03/19/22 [History Last Taken Unknown] metoclopramide HCl 5 mg tablet 2.5 mg (1/2 x 5 mg) PO QAC #15 tabs 08/08/22 [Rx Last Taken Unknown] ondansetron 4 mg disintegrating tablet 4 mg PO Q8H PRN PRN Nausea #10 tabs 09/07/22 [Rx Last Taken Unknown] pantoprazole 40 mg tablet,delayed release 40 mg PO BID #60 tabs 12/03/22 [Rx Last Taken Unknown] naproxen 500 mg tablet (Naprosyn) 500 mg PO BID PRN pain #20 tabs 12/18/22 [Rx Last Taken Unknown] aripiprazole 5 mg tablet 5 mg PO DAILY schizophrenia 01/16/23 [History Last Taken Unknown] fluoxetine 40 mg capsule 20 mg PO QHS depression 01/16/23 [History Last Taken Unknown] topiramate 100 mg tablet 100 mg PO QHS 01/16/23 [History Last Taken Unknown] topiramate 25 mg tablet 25 mg PO DAILY 01/16/23 [History Last Taken Unknown] promethazine 25 mg tablet 25 mg PO TID PRN nausea and vomiting #14 tabs 01/29/23 [Rx Last Taken Unknown] benzonatate 100 mg capsule 100 mg PO TID PRN 02/06/23 [History Last Taken Unknown] carvedilol 12.5 mg tablet 12.5 mg PO BID #180 tabs 02/11/23 [Rx Last Taken Unknown] cyclobenzaprine 10 mg tablet 10 mg PO Q8H 03/02/23 [History Last Taken Unknown] potassium chloride 10 mEq capsule,extended release 10 meq PO DAILY 7 days #7 caps 03/02/23 [Rx Last Taken Unknown] Allergy/AdvReac Type Severity Reaction Status Date / Time gabapentin Allergy Rash Verified 04/17/23 18:40 glycerin [From Nasal-Ease] Allergy Swelling Verified 04/17/23 18:40 methylcellulose Allergy Swelling Verified 04/17/23 18:40 [From Nasal-Ease] sertraline [From Zoloft] Allergy Anaphylaxis Verified 04/17/23 18:40 silicone Allergy Rash Verified 04/17/23 18:40 sodium chloride Allergy Swelling Verified 04/17/23 18:40 [From Nasal-Ease] zinc [From Nasal-Ease] Allergy Swelling Verified 04/17/23 18:40 lactose AdvReac Upset Verified 04/17/23 18:40 Stomach Family History Father Anxiety Depression Asthma Hypertension Mother Asthma Diabetes Anxiety Depression CAD (coronary artery disease) Myocardial infarction, Onset Age: 42 Brother Oleksandr-Danlos syndrome Grandmother Myocardial infarction, Onset Age: 41 Grandfather Myocardial infarction, Onset Age: 38 Surgical History History of colonoscopy History of esophagogastroduodenoscopy (EGD) Hx of laparoscopy Social History household members: none Smoking Status: Current every day smoker tobacco type: e-cigarettes alcohol intake: current alcohol intake frequency: holidays/special occasions only substance use type: does not use caffeine: Yes Type: carbonated beverages, coffee and tea ROS ROS ED Cardiovascular Cardiovascular: Denies chest pain, palpitations or racing heartbeat Respiratory/Chest Respiratory/Chest: Denies cough, dyspnea or dyspnea on exertion Gastrointestinal Gastrointestinal: Reports other Details: Yellow soft stool which concerns patient and bright red blood per rectum ; Denies abdominal pain, constipation, diarrhea, melena, nausea or vomiting Genitourinary Genitourinary ED: Denies dysuria, hematuria or urinary frequency Musculoskeletal Musculoskeletal: Reports back pain; Denies arthralgias, myalgias or neck pain Hematologic/Lymphatic Hematologic/Lymphatic: Reports systems reviewed and no addt'l complaints, except as documented EXAM Physical Exam Const Vital Signs: 04/17/23 18:40 Temperature 97.1 F L Temperature Source Temporal Pulse Rate 101 H Respiratory Rate 18 Blood Pressure 134/79 H Blood Pressure Mean 97 Pulse Ox 100 Oxygen Delivery Method Room Air Positive well nourished and well developed General Appearance ED: well developed; Negative for cyanotic, diaphoretic or pallor HEENT Reports moist mucous membranes HEENT Narrative: Head is atraumatic normocephalic. Ears normal. Nares patent. Mucosa moist. Eyes PERRL and EOMs intact bilaterally General Eye ED: Negative for pale conjunctiva or scleral icterus Neck no lymphadenopathy, supple and no JVD Resp normal respiratory effort and clear to auscultation bilaterally Cardio regular rate, regular rhythm, S1 normal heart sound, S2 normal heart sound and no murmurs GI normal to inspection, nondistended, normoactive bowel sounds, non-distended and no masses; Negative for non-tender or hepatosplenomegaly GI Narrative: Negative clinical Hu sign. Auscultation: normoactive bowel sounds Palpation: soft and tender RUQ Back/Spine no CVA tenderness Lumbar Spine / Lower Back: lumbar spinal tenderness Extremity normal to inspection General Extremety ED: Negative for edema or tenderness General Extremity: Negative for edema Neuro oriented x3, CN's II-XII intact bilaterally and no sensory deficits noted Sensorium / Orientation: alert Sensory Exam: No sensory level loss detected Motor Exam: strength 5/5 throughout Psych mental status grossly normal Skin no rashes or lesions noted, no wounds and skin turgor normal General Skin Exam: Negative for jaundice or pallor MDM MDM MDM Narrative Medical decision making narrative: With right upper quadrant pain transaminases were obtained as well as bilirubin. Suspect this is pain of unknown etiology. She has very minimal pain to light touch. Negative clinical Hu sign. UA was obtained to assess for blood for possible atypical presentation for ureterolithiasis. Anoscopy was performed please read procedure note. H&H rule out anemia. Lab Data Labs: Laboratory Results - last 24 hr 04/17/23 04/17/23 18:50 19:10 WBC 10.1 RBC 5.13 Hgb 12.5 Hct 39.2 MCV 76.4 L MCH 24.4 L MCHC 31.9 L RDW Std Deviation 39.7 RDW Coeff of Anoop 14.5 Plt Count 478 H MPV 8.4 Immature Gran % (Auto) 0.300 Neut % (Auto) 64.5 Lymph % (Auto) 25.8 [place] % (Auto) 8.4 Eos % (Auto) 0.6 Baso % (Auto) 0.4 Absolute Neuts (auto) 6.5 Absolute Lymphs (auto) 2.60 Nucleated RBC % 0 Sodium 138 Potassium 3.5 Chloride 109 H Carbon Dioxide 23.0 Anion Gap 6 BUN 7 Creatinine 0.80 Estim Creat Clear Calc 99.26 Est GFR (MDRD) Af Amer 115 Est GFR (MDRD) Non-Af 95 BUN/Creatinine Ratio 8.8 L Glucose 98 Calcium 9.8 Total Bilirubin 0.20 AST 10 L ALT 18 Alkaline Phosphatase 118 H Total Protein 8.0 Albumin 3.6 Globulin 4.4 H Albumin/Globulin Ratio 0.8 L Serum , Qual NEGATIVE Urine Color Yellow Urine Clarity Clear Urine pH 7.0 Ur Specific [place] 1.010 Urine Protein Negative Urine Glucose (UA) Normal Urine Ketones Negative Urine Occult Blood Negative Urine Nitrite Negative Urine Bilirubin Negative Urine Urobilinogen Normal Ur Leukocyte Esterase Negative Urine RBC 0 SEEN Urine WBC 0 SEEN Ur Squamous Epith Cells 0 SEEN Urine Bacteria 0 SEEN Urine Mucus 0 SEEN Procedures Other Procedures Procedure(s): With nurse as granite setter anoscopy performed. Patient has an external hemorrhoid noted at 5:00 lithotomy position. Mucosa appears normal. There is slight bleeding noted with a clot to indicate recent bleed. There is no palpable mass to suggest a thrombosed hemorrhoid. There is no fissures or fistulas noted. Discharge Plan Triage Chief Complaint: Abd Pain ED Provider: Fabrice Em Dx/Rx/DC Orders Clinical Impression: Bleeding external hemorrhoids, BP (high blood pressure), GERD (gastroesophageal reflux disease), POTS (postural orthostatic tachycardia syndrome), Right upper quadrant abdominal pain Instructions: ED Hemorrhoids Prescriptions: No Action topiramate 100 mg tablet 100 mg PO QHS Rx Instructions: give with 25 mg tablet to = 125 mg medroxyprogesterone [Depo-Provera] 150 mg/mL suspension 150 mg IM .q10w Patient Comments: INJECT 1ML INTRAMUSCULARILY EVERY 12 WEEKS metoclopramide HCl 5 mg tablet 2.5 mg PO QAC Qty: 15 2RF Rx Instructions: administer 30 minutes before meals aripiprazole 5 mg tablet 5 mg PO DAILY fluoxetine 40 mg capsule 20 mg PO QHS topiramate 25 mg tablet 25 mg PO DAILY Patient Comments: take 1 tablet by mouth at bedtime Rx Instructions: give with 100 mg tablet to = 125 mg epinephrine 0.3 mg/0.3 mL auto-injector 1 mg IM PRN PRN (Reason: Allergic Reaction) Patient Comments: INJECT INTO THE MUSCLE NEEDED FOR ANAPHYLAXIS REACTION albuterol sulfate 90 mcg/actuation HFA aerosol inhaler 2 puff INHALATION PRN PRN (Reason: Wheezing) Patient Comments: inhale 2 puffs by mouth and INTO THE LUNGS every 4 hours if neede... (REFER TO PRESCRIPTION NOTES). trazodone 50 mg tablet 50 mg PO QHS Patient Comments: TAKE 1 OR 2 TABLETS BY MOUTH AT BEDTIME prazosin 1 mg capsule 1 mg PO DAILY ondansetron 4 mg tablet,disintegrating 4 mg PO Q8H PRN PRN (Reason: Nausea) Qty: 10 0RF naproxen [Naprosyn] 500 mg tablet 500 mg PO BID PRN (Reason: pain) Qty: 20 0RF promethazine 25 mg tablet 25 mg PO TID PRN (Reason: nausea and vomiting) Qty: 14 0RF benzonatate 100 mg capsule 100 mg PO TID PRN Patient Comments: take 1 to 2 capsules by mouth three times a day if needed cyclobenzaprine 10 mg tablet 10 mg PO Q8H Patient Comments: take 1 tablet by mouth three times a day potassium chloride 10 mEq capsule, extended release 10 meq PO DAILY 7 Days Qty: 7 0RF pantoprazole 40 mg tablet,delayed release (DR/EC) 40 mg PO BID Qty: 60 3RF carvedilol 12.5 mg tablet 12.5 mg PO BID Qty: 180 3RF Rx Instructions: must administer with a meal/food Primary Care Provider: Monica Patterson Referrals: Monica Patterson, ASSISTANT PROFESSOR OF SURGERY-C [Primary Care Provider] - 3-5 Days if not improving Disposition Disposition: Home, Self Care
== END 2023-04-17 20:46 | disposition home or self-care (01) ==
PROVIDERS: Emergency Provider Emergency Medicine; PCP Nurse Practitioner Family; Visit Provider Emergency Medicine
DX: K64.9 Unspecified hemorrhoids (principal); F20.9 Schizophrenia, unspecified; K21.9 Gastro-esophageal reflux disease without esophagitis; G90.A Postural orthostatic tachycardia syndrome [POTS]; R10.11 Right upper quadrant pain; F43.10 Post-traumatic stress disorder, unspecified; Z79.899 Other long term (current) drug therapy; F32.A Depression, unspecified; G43.909 Migraine, unspecified, not intractable, without status migrainosus; F17.290 Nicotine dependence, other tobacco product, uncomplicated; I10 Essential (primary) hypertension
CPT/HCPCS: 46600; 80053; 81001; 84703; 85025; 99282; A4216

== ENCOUNTER 2023-04-22 23:11 | Emergency (ER) | payer MEDICAID, SELFPAY ==
--- NOTE | 2023-04-22 00:15 | RAD_ITS ---
EXAM: XR LUMBOSACRAL SPINE, 2 OR 3 VIEWS CLINICAL INDICATION: pain TECHNIQUE: Frontal and lateral views of the lumbar spine and sacrum. COMPARISON: No relevant prior studies available. FINDINGS: VERTEBRAE: Unremarkable. Preserved vertebral body height. No fracture. No spondylolisthesis. Preservation of the normal lumbar lordosis. No significant facet arthropathy. DISC SPACES: No acute findings. Disc spaces are maintained. GASTROINTESTINAL TRACT: Unremarkable as visualized. Included bowel gas pattern is non-obstructive. RAD/Lumbar Spine 2 or 3 Views IMPRESSION: No evidence of lumbar spinal fracture or spondylolisthesis. Electronically Signed: Chuy Braga MD at 0:59 EST ,
[2023-04-22 23:11] VITALS: BP 123/78; PULSE 92; RESP 16; TEMP 36.1; O2SAT 100; BMI 29.2
--- NOTE | 2023-04-22 23:31 | RAD_ITS ---
EXAM: XR THORACIC SPINE, 3 VIEWS CLINICAL INDICATION: pain TECHNIQUE: Frontal, lateral and swimmer''s views of the thoracic spine. COMPARISON: No relevant prior studies available. FINDINGS: VERTEBRAE: Unremarkable. Preserved vertebral body height. No fracture. No spondylolisthesis. Preservation of the normal thoracic kyphosis. No significant facet arthropathy. DISC SPACES: Unremarkable. Disc spaces are maintained. RAD/Thoracic Spine 3 Views IMPRESSION: No evidence of thoracic spinal fracture or spondylolisthesis. Electronically Signed: Chuy Braga MD at 0:58 EST ,
--- NOTE | 2023-04-22 23:32 | EDS_ITS ---
HPI History of Present Illness Chief Complaint: Back Narrative Narrative: 23-year-old female past medical history of bipolar disorder, POTS, seen frequently in the emergency department presents with thoracic to lumbar back pain that she has had for the last few weeks. While she was seen by her primary care provider, triage reports that they did not address her back pain that she has been having. She states it radiates upward, and sometimes down or down towards her leg. She denies any loss of bowel or bladder but states she has been having urinary frequency. She states that she really did not think that she had an emergent problem but called the nurse line, and wanted to make an appointment with her primary care provider, and she was told that she needed to come to the emergency department and be seen within 4 hours . She denies any fevers or chills, no nausea or vomiting, no other symptoms. Has been taking ibuprofen and Tylenol without relief of her symptoms. [facility] Medical History Anxiety Asthma Depression Diarrhea Endometriosis Gastroparesis GERD (gastroesophageal reflux disease) Migraine OCD (obsessive compulsive disorder) Pelvic pain POTS (postural orthostatic tachycardia syndrome) PTSD (post-traumatic stress disorder) Schizophrenia Tachycardia Upper abdominal pain Home Medications albuterol sulfate 90 mcg/actuation aerosol inhaler 2 puff inhalation PRN PRN Wheezing 06/14/21 [History Last Taken Unknown] epinephrine 0.3 mg/0.3 mL injection, auto-injector 1 mg IM PRN PRN Allergic Reaction 06/14/21 [History Last Taken Unknown] medroxyprogesterone 150 mg/mL intramuscular suspension (Depo-Provera) 150 mg IM .q10w 01/04/22 [History Last Taken Unknown] prazosin 1 mg capsule 1 mg PO DAILY PTSD 03/19/22 [History Last Taken Unknown] trazodone 50 mg tablet 50 mg PO QHS 03/19/22 [History Last Taken Unknown] metoclopramide HCl 5 mg tablet 2.5 mg (1/2 x 5 mg) PO QAC #15 tabs 08/08/22 [Rx Last Taken Unknown] ondansetron 4 mg disintegrating tablet 4 mg PO Q8H PRN PRN Nausea #10 tabs 09/07/22 [Rx Last Taken Unknown] pantoprazole 40 mg tablet,delayed release 40 mg PO BID #60 tabs 12/03/22 [Rx Last Taken Unknown] naproxen 500 mg tablet (Naprosyn) 500 mg PO BID PRN pain #20 tabs 12/18/22 [Rx Last Taken Unknown] aripiprazole 5 mg tablet 5 mg PO DAILY schizophrenia 01/16/23 [History Last Taken Unknown] fluoxetine 40 mg capsule 20 mg PO QHS depression 01/16/23 [History Last Taken Unknown] topiramate 100 mg tablet 100 mg PO QHS 01/16/23 [History Last Taken Unknown] topiramate 25 mg tablet 25 mg PO DAILY 01/16/23 [History Last Taken Unknown] promethazine 25 mg tablet 25 mg PO TID PRN nausea and vomiting #14 tabs 01/29/23 [Rx Last Taken Unknown] benzonatate 100 mg capsule 100 mg PO TID PRN 02/06/23 [History Last Taken Unknown] carvedilol 12.5 mg tablet 12.5 mg PO BID #180 tabs 02/11/23 [Rx Last Taken Unknown] cyclobenzaprine 10 mg tablet 10 mg PO Q8H 03/02/23 [History Last Taken Unknown] potassium chloride 10 mEq capsule,extended release 10 meq PO DAILY 7 days #7 caps 03/02/23 [Rx Last Taken Unknown] Allergy/AdvReac Type Severity Reaction Status Date / Time gabapentin Allergy Rash Verified 04/22/23 23:13 glycerin [From Nasal-Ease] Allergy Swelling Verified 04/22/23 23:13 methylcellulose Allergy Swelling Verified 04/22/23 23:13 [From Nasal-Ease] sertraline [From Zoloft] Allergy Anaphylaxis Verified 04/22/23 23:13 silicone Allergy Rash Verified 04/22/23 23:13 sodium chloride Allergy Swelling Verified 04/22/23 23:13 [From Nasal-Ease] zinc [From Nasal-Ease] Allergy Swelling Verified 04/22/23 23:13 lactose AdvReac Upset Verified 04/22/23 23:13 Stomach Family History Father Anxiety Depression Asthma Hypertension Mother Asthma Diabetes Anxiety Depression CAD (coronary artery disease) Myocardial infarction, Onset Age: 42 Brother Oleksandr-Danlos syndrome Grandmother Myocardial infarction, Onset Age: 41 Grandfather Myocardial infarction, Onset Age: 38 Surgical History History of colonoscopy History of esophagogastroduodenoscopy (EGD) Hx of laparoscopy Social History household members: none Smoking Status: Current every day smoker tobacco type: e-cigarettes alcohol intake: current alcohol intake frequency: holidays/special occasions only substance use type: does not use caffeine: Yes Type: carbonated beverages, coffee and tea ROS ROS ED ROS Narrative Constitutional: No fever, no chills. HEENT: No sore throat. No neck pain. No loss of vision. No rhinorrhea. Cardiovascular: No chest pain. No palpitations. No pedal edema. Respiratory: No cough, no shortness of breath. Abdominal: No abdominal pain. No nausea. No vomiting. Genitourinary: No dysuria. No hematuria. No urinary frequency. Musculoskeletal: No myalgias. No arthralgias. Of lumbar and thoracic back pain. Neurologic: No headaches. No dizziness. No lightheadedness. Skin: No rash. No change in color. Psychiatric: No depression. No anxiety. EXAM Physical Exam Narrative Exam Narrative: Afebrile. Vital signs noted. HEENT: Normocephalic. Atraumatic. PERRL, EOMI. Neck soft and supple. No point tenderness or step off. Cardiovascular: Regular rate and rhythm. No murmurs, rubs, or gallops appreciated. Respiratory: No tachypnea. Lungs clear to auscultation bilaterally. Gastrointestinal: Abdomen soft, nontender, with normoactive bowel sounds. No rebound or guarding. Neurological: Awake. Alert. Nonfocal, nonlateralizing. NVI bilateral lower extremities. Skin: No rash. Normal color. No pallor. Musculoskeletal: No pedal edema. Full range of motion extremities. No tenderness to palpation of thoracic or lumbar spine, no crepitance, no point tenderness or step-off. Const Vital Signs: 04/22/23 23:11 Temperature 96.9 F L Temperature Source Temporal Pulse Rate 92 Respiratory Rate 16 Blood Pressure 123/78 H Blood Pressure Mean 93 Pulse Ox 100 Oxygen Delivery Method Room Air MDM MDM MDM Narrative Medical decision making narrative: WithI reviewed the patient's prior records, she has had problems with thoracic back pain and low back pain in the past, and has had multiple imaging modalities, and workups for chest pain. I do not feel she has an emergent process related to her back but I will obtain thoracic spine x-rays and lumbar spine x-rays to rule out fracture. She states she had last fall in September of last year and has not had any recent falls. Additionally, for her urinary frequency she may have a urinary tract infection or just dysuria symptoms. Urinalysis will be obtained along with urine . I reviewed her laboratory work and her urinalysis shows no evidence of infection 0 bacteria and 0-5 WBCs. Urine is negative. X-rays of the lumbar spine and 3 views interpreted by myself independently shows no evidence of acute fracture. Thoracic spine x-rays in 2 views interpreted by myself as well show no evidence of acute fracture. I reviewed the radiology report which confirms my independent interpretation. As her medical screening examination is negative, I do not feel she requires admission or any other laboratory work or imaging. I feel she can be discharged to follow-up with her primary care provider and continue [id number] analgesics as I do not feel narcotics are indicated. Return instructions to the emergency department reviewed. Disposition is discharged home in stable condition. History & Record Review Discussion w/independent historian: Patient Additional record(s) reviewed:: Prior ED visit and Prior labs Lab Data Attestation: I reviewed the patient's lab results. Labs: Laboratory Results - last 24 hr 04/22/23 03:53 Urine Color Yellow Urine Clarity Clear Urine pH 6.5 Ur Specific [place] 1.015 Urine Protein 15 H Urine Glucose (UA) Normal Urine Ketones Negative Urine Occult Blood Negative Urine Nitrite Negative Urine Bilirubin Negative Urine Urobilinogen Normal Ur Leukocyte Esterase Negative Urine RBC 0 SEEN Urine WBC 0-5 SEEN Ur Squamous Epith Cells 0 SEEN Urine Bacteria 0 SEEN Urine Mucus 0 SEEN Urine Test Negative Radiography Diagnostic Testing: Clinical Impression(s) from Imaging Studies Lumbar Spine X-Ray 04/22/23 00:15 IMPRESSION: No evidence of lumbar spinal fracture or spondylolisthesis. Electronically Signed: Chuy Braga MD at 0:59 EST , Thoracic Spine X-Ray 04/22/23 23:31 IMPRESSION: No evidence of thoracic spinal fracture or spondylolisthesis. Electronically Signed: Chuy Braga MD at 0:58 EST , Discharge Plan Triage Chief Complaint: Back ED Provider: Ron Gray Dx/Rx/DC Orders Clinical Impression: Urinary frequency, Back pain Instructions: ED Back Pain (Acute or Chronic), ED Dysuria, Uncertain Cause (Adult), ED Back and Neck Pain, General Prescriptions: No Action topiramate 100 mg tablet 100 mg PO QHS Rx Instructions: give with 25 mg tablet to = 125 mg medroxyprogesterone [Depo-Provera] 150 mg/mL suspension 150 mg IM .q10w Patient Comments: INJECT 1ML INTRAMUSCULARILY EVERY 12 WEEKS metoclopramide HCl 5 mg tablet 2.5 mg PO QAC Qty: 15 2RF Rx Instructions: administer 30 minutes before meals aripiprazole 5 mg tablet 5 mg PO DAILY fluoxetine 40 mg capsule 20 mg PO QHS topiramate 25 mg tablet 25 mg PO DAILY Patient Comments: take 1 tablet by mouth at bedtime Rx Instructions: give with 100 mg tablet to = 125 mg epinephrine 0.3 mg/0.3 mL auto-injector 1 mg IM PRN PRN (Reason: Allergic Reaction) Patient Comments: INJECT INTO THE MUSCLE NEEDED FOR ANAPHYLAXIS REACTION albuterol sulfate 90 mcg/actuation HFA aerosol inhaler 2 puff INHALATION PRN PRN (Reason: Wheezing) Patient Comments: inhale 2 puffs by mouth and INTO THE LUNGS every 4 hours if neede... (REFER TO PRESCRIPTION NOTES). trazodone 50 mg tablet 50 mg PO QHS Patient Comments: TAKE 1 OR 2 TABLETS BY MOUTH AT BEDTIME prazosin 1 mg capsule 1 mg PO DAILY ondansetron 4 mg tablet,disintegrating 4 mg PO Q8H PRN PRN (Reason: Nausea) Qty: 10 0RF naproxen [Naprosyn] 500 mg tablet 500 mg PO BID PRN (Reason: pain) Qty: 20 0RF promethazine 25 mg tablet 25 mg PO TID PRN (Reason: nausea and vomiting) Qty: 14 0RF benzonatate 100 mg capsule 100 mg PO TID PRN Patient Comments: take 1 to 2 capsules by mouth three times a day if needed cyclobenzaprine 10 mg tablet 10 mg PO Q8H Patient Comments: take 1 tablet by mouth three times a day potassium chloride 10 mEq capsule, extended release 10 meq PO DAILY 7 Days Qty: 7 0RF pantoprazole 40 mg tablet,delayed release (DR/EC) 40 mg PO BID Qty: 60 3RF carvedilol 12.5 mg tablet 12.5 mg PO BID Qty: 180 3RF Rx Instructions: must administer with a meal/food Primary Care Provider: Monica Patterson Referrals: Monica Patterson, B[employer]IC SERVICES SPECIALIST-C [Primary Care Provider] - As soon as possible Disposition Disposition: Home, Self Care
[2023-04-23] LABS: Bacteria 0 SEEN /hpf (None Seen); Mucous, Urine 0 SEEN /hpf (<or=2+); Red Blood Cells-Urine 0 SEEN /hpf (0-5); Squamous Epithelial Cells - UA 0 SEEN /hpf (5-10)
[2023-04-23 00:05] LABS: Color, Urine Yellow (Yellow); Glucose, Dipstick Normal (Normal); Ketone-Dipstick Negative (Negative); Leukocyte Esterase-Dipstick Negative /ul (Negative); Nitrite-Dipstick Negative (Negative); Occult Blood-Urine Negative /ul (Negative); Protein-Dipstick 15 mg/dl (Negative); Specific Gravity, Urine 1.015 (1.002-1.030); Urine Bilirubin Dipstick Negative (Negative); Urine Clarity Clear (Clear); Urine Urobilinogen Normal (Normal); Urine pH 6.5 (5.0 - 8.0)
[2023-04-23 00:08] LABS: Internal QC Validated? YES +Cl - CLEAR BKGD; Pregnancy, Urine Negative Negative
[2023-04-23 00:14] LABS: White Blood Cells 0-5 SEEN /hpf (0-5)
== END 2023-04-23 02:45 | disposition home or self-care (01) ==
PROVIDERS: Emergency Provider Emergency Medicine; PCP Nurse Practitioner Family; Visit Provider Emergency Medicine
DX: M54.89 Other dorsalgia (principal); F20.9 Schizophrenia, unspecified; R35.0 Frequency of micturition; F43.10 Post-traumatic stress disorder, unspecified; Z79.899 Other long term (current) drug therapy; K21.9 Gastro-esophageal reflux disease without esophagitis; G43.909 Migraine, unspecified, not intractable, without status migrainosus; F17.290 Nicotine dependence, other tobacco product, uncomplicated
CPT/HCPCS: 72072; 72100; 81001; 81025; 99282; J7030

== ENCOUNTER 2023-04-26 11:13 | Emergency (ER) | payer MEDICAID, SELFPAY ==
[2023-04-26 11:14] VITALS: BP 120/87; PULSE 94; RESP 16; TEMP 36.6; O2SAT 100; BMI 29.4
--- NOTE | 2023-04-26 11:37 | CT_ITS ---
STUDY: CT ABDOMEN AND PELVIS WITH CONTRAST REASON FOR EXAM: Female, 23 years old. Pain, GI bleed RADIATION DOSAGE (If Supplied By Facility): CTDIvol = ( 10.05 ) mGy, DLP = ( 519.57 ) mGycm TECHNIQUE: Transaxial images were obtained from the dome of the diaphragm to the symphysis pubis without oral contrast. IV 100mL Isovue-300 was administered. Sagittal and coronal images were reconstructed. Individualized dose optimization techniques were used for this CT. COMPARISON: Comparison is made with prior study dated January 29, 2023. FINDINGS: The visualized lung bases are unremarkable. The visualized portions of the heart are within normal limits. Normal liver. Normal gallbladder and extrahepatic biliary system. Normal spleen. Normal pancreas. Normal bilateral adrenal glands. Normal right kidney. Normal left kidney. There is a small hiatal hernia. Normal small intestine. There is evidence for circumferential wall thickening of the descending colon from the region of the splenic flexure down to the sigmoid colon. Colitis should be ruled out. The appendix is visualized and appears normal. Normal abdominal aorta. Normal inferior vena cava. Normal retroperitoneum. Mild degree of bladder wall thickening although the bladder is not completely distended. Heterogeneous appearance of the uterus suggestive of fibroid change. Small benign-appearing bilateral inguinal lymph nodes. Normal osseous structures. CT/Abdomen/Pelvis W IV Cont ONLY IMPRESSION: Mild degree of circumferential wall thickening of the descending colon as described. Colitis should be ruled out. Electronically Signed: Eugenio Weathers MD at 14:09 EST ,
--- NOTE | 2023-04-26 11:37 | EKG12_ITS ---
Test Reason : CP Blood Pressure : / mmHG Vent. Rate : 073 BPM Atrial Rate : 073 BPM P-R Int : 136 ms QRS Dur : 076 ms QT Int : 412 ms P-R-T Axes : 025 031 -12 degrees QTc Int : 453 ms Sinus rhythm with marked sinus arrhythmia Otherwise normal ECG Confirmed by SALLY COOL, HUBER ([id number]), editor department JOHANA ESCAMILLA ([id number]) on 04/29/2023 6:37:04 AM Referred By: Confirmed By:HUBER ZAVALA MD
[2023-04-26] MEDS: 0.9% Normal Saline (1000mL) 1,000 ML 1000 ML IV (11:51)
[2023-04-26] MEDS: Dicyclomine 20 MG/2 ML Vial IM (11:52)
[2023-04-26] MEDS: Ondansetron 4 MG/2 ML Vial IV (11:52)
[2023-04-26] MEDS: Morphine 4 MG/ML Syringe IV (11:52)
--- NOTE | 2023-04-26 12:14 | EDS_ITS ---
HPI History of Present Illness Chief Complaint: Abd Pain Informant: patient Onset/Context/Timing Onset: Yesterday Narrative Narrative: Patient presents to urgent care via EMS secondary to diarrhea and vomiting with dizziness. She reports right upper quadrant abdominal pain with diarrhea since yesterday. She reports bright red blood in her stool. She has been vomiting as well but no blood noted in the vomitus. She feels lightheaded and dizzy and reports some intermittent chest pain. Patient has had problems with chronic abdominal pain. She states she is scheduled to see a new GI doctor on the at [facility]. [facility] Medical History Anxiety Asthma Depression Diarrhea Endometriosis Gastroparesis GERD (gastroesophageal reflux disease) Migraine OCD (obsessive compulsive disorder) Pelvic pain POTS (postural orthostatic tachycardia syndrome) PTSD (post-traumatic stress disorder) Schizophrenia Tachycardia Upper abdominal pain Home Medications albuterol sulfate 90 mcg/actuation aerosol inhaler 2 puff inhalation PRN PRN Wheezing 06/14/21 [History Last Taken Unknown] epinephrine 0.3 mg/0.3 mL injection, auto-injector 1 mg IM PRN PRN Allergic Reaction 06/14/21 [History Last Taken Unknown] medroxyprogesterone 150 mg/mL intramuscular suspension (Depo-Provera) 150 mg IM .q10w 01/04/22 [History Last Taken Unknown] prazosin 1 mg capsule 1 mg PO DAILY PTSD 03/19/22 [History Last Taken Unknown] trazodone 50 mg tablet 50 mg PO QHS 03/19/22 [History Last Taken Unknown] metoclopramide HCl 5 mg tablet 2.5 mg (1/2 x 5 mg) PO QAC #15 tabs 08/08/22 [Rx Last Taken Unknown] ondansetron 4 mg disintegrating tablet 4 mg PO Q8H PRN PRN Nausea #10 tabs 09/07/22 [Rx Last Taken Unknown] pantoprazole 40 mg tablet,delayed release 40 mg PO BID #60 tabs 12/03/22 [Rx Last Taken Unknown] naproxen 500 mg tablet (Naprosyn) 500 mg PO BID PRN pain #20 tabs 12/18/22 [Rx Last Taken Unknown] aripiprazole 5 mg tablet 5 mg PO DAILY schizophrenia 01/16/23 [History Last Taken Unknown] fluoxetine 40 mg capsule 20 mg PO QHS depression 01/16/23 [History Last Taken Unknown] topiramate 100 mg tablet 100 mg PO QHS 01/16/23 [History Last Taken Unknown] topiramate 25 mg tablet 25 mg PO DAILY 01/16/23 [History Last Taken Unknown] promethazine 25 mg tablet 25 mg PO TID PRN nausea and vomiting #14 tabs 01/29/23 [Rx Last Taken Unknown] benzonatate 100 mg capsule 100 mg PO TID PRN 02/06/23 [History Last Taken Unknown] carvedilol 12.5 mg tablet 12.5 mg PO BID #180 tabs 02/11/23 [Rx Last Taken Unknown] cyclobenzaprine 10 mg tablet 10 mg PO Q8H 03/02/23 [History Last Taken Unknown] potassium chloride 10 mEq capsule,extended release 10 meq PO DAILY 7 days #7 caps 03/02/23 [Rx Last Taken Unknown] amoxicillin 875 mg-potassium clavulanate 125 mg tablet 1 tab PO BID #20 tabs 04/26/23 [Rx Last Taken Unknown] dicyclomine 20 mg tablet 20 mg PO BID #20 tabs 04/26/23 [Rx Last Taken Unknown] Allergy/AdvReac Type Severity Reaction Status Date / Time gabapentin Allergy Rash Verified 04/26/23 11:15 glycerin [From Nasal-Ease] Allergy Swelling Verified 04/26/23 11:15 methylcellulose Allergy Swelling Verified 04/26/23 11:15 [From Nasal-Ease] sertraline [From Zoloft] Allergy Anaphylaxis Verified 04/26/23 11:15 silicone Allergy Rash Verified 04/26/23 11:15 sodium chloride Allergy Swelling Verified 04/26/23 11:15 [From Nasal-Ease] zinc [From Nasal-Ease] Allergy Swelling Verified 04/26/23 11:15 lactose AdvReac Upset Verified 04/26/23 11:15 Stomach Family History Father Anxiety Depression Asthma Hypertension Mother Asthma Diabetes Anxiety Depression CAD (coronary artery disease) Myocardial infarction, Onset Age: 42 Brother Oleksandr-Danlos syndrome Grandmother Myocardial infarction, Onset Age: 41 Grandfather Myocardial infarction, Onset Age: 38 Surgical History History of colonoscopy History of esophagogastroduodenoscopy (EGD) Hx of laparoscopy Social History household members: none Smoking Status: Current every day smoker tobacco type: e-cigarettes alcohol intake: current alcohol intake frequency: holidays/special occasions only substance use type: does not use caffeine: Yes Type: carbonated beverages, coffee and tea ROS ROS ED Constitutional Constitutional ED: Denies chills or fever(s) Eyes Eyes: Denies change in vision or discharge from eye(s) ENT ENT ED: Denies discharge from eye(s), rhinorrhea or sore throat Cardiovascular Cardiovascular: Denies chest pain or palpitations Respiratory/Chest Respiratory/Chest: Denies cough or dyspnea Gastrointestinal Gastrointestinal: Reports abdominal pain, diarrhea, nausea, vomiting and other Details: Bright red blood per rectum Genitourinary Genitourinary ED: Denies dysuria Musculoskeletal Musculoskeletal: Denies back pain or extremity pain Integumentary Denies Abrasions or rash Neurologic Neurologic: Denies headache(s) or weakness Psychiatric Psychiatric: Denies anxiety or depression Allergic/Immunologic Allergic/Immunologic ED: Denies lip swelling or urticaria EXAM Physical Exam Const Vital Signs: 04/26/23 11:14 04/26/23 13:19 Temperature 97.8 F Temperature Source Temporal Pulse Rate 94 83 Respiratory Rate 16 14 Blood Pressure 120/87 H 119/78 Blood Pressure Mean 98 91 Pulse Ox 100 99 Oxygen Delivery Method Room Air Positive well nourished and well developed General Appearance ED: well developed HEENT Reports moist mucous membranes Eyes EOMs intact bilaterally Chest Wall inspection of chest normal and palpation of chest normal Resp normal respiratory effort and clear to auscultation bilaterally Cardio regular rate and regular rhythm GI GI Narrative: Abdomen soft with mild tenderness in the right upper quadrant. No guarding or rebound. Extremity normal to inspection Neuro oriented x3 and no sensory deficits noted Motor Exam: strength 5/5 throughout Psych mental status grossly normal Skin no rashes or lesions noted MDM MDM MDM Narrative Medical decision making narrative: IV line established. Patient given morphine, Zofran, Bentyl. Labwork obtained to evaluate for leukocytosis, anemia, and electrolyte derangement. CT scan of the abdomen pelvis obtained to evaluate for abnormal bowel wall thickening. History & Record Review Discussion w/independent historian: Patient Additional record(s) reviewed:: Prior outpatient record, Prior ED visit and Prior labs Lab Data Attestation: I reviewed the patient's lab results. Labs: Laboratory Results - last 24 hr 04/26/23 11:50 WBC 7.0 RBC 4.90 Hgb 11.9 L Hct 38.0 MCV 77.6 L MCH 24.3 L MCHC 31.3 L RDW Std Deviation 41.2 RDW Coeff of Anoop 14.9 H Plt Count 487 H MPV 8.4 Immature Gran % (Auto) 0.300 Neut % (Auto) 69.3 Lymph % (Auto) 20.2 Ward % (Auto) 9.0 Eos % (Auto) 0.9 Baso % (Auto) 0.3 Absolute Neuts (auto) 4.9 Absolute Lymphs (auto) 1.42 Nucleated RBC % 0 Sodium 140 Potassium 3.8 Chloride 112 H Carbon Dioxide 23.0 Anion Gap 5 BUN 9 Creatinine 0.89 Estim Creat Clear Calc 100.09 Est GFR (MDRD) Af Amer 101 Est GFR (MDRD) Non-Af 84 BUN/Creatinine Ratio 10.1 Glucose 93 Calcium 9.1 Total Bilirubin 0.20 Direct Bilirubin < 0.05 AST 8 L ALT 14 Alkaline Phosphatase 108 Total Protein 7.6 Albumin 3.3 Globulin 4.3 H Lipase 29 Serum , Qual NEGATIVE Radiography Diagnostic Testing: Clinical Impression(s) from Imaging Studies Abdomen/Pelvis CT 04/26/23 11:37 IMPRESSION: Mild degree of circumferential wall thickening of the descending colon as described. Colitis should be ruled out. Electronically Signed: Eugenio Weathers MD at 14:09 EST , EKG Initial EKG: Attestation: I personally reviewed and interpreted this EKG as follows: Interpretation: Sinus Rhythm (Sinus at 73 with no acute ischemia.) Treatment and Re-Evaluation :: CBC reveals normal white count 7.0 with normal differential. Hemoglobin slightly low at 11.9. This is, however, consistent with her prior values. Chemistry studies are unremarkable. LFTs are unremarkable. test negative. CT scan of the abdomen and pelvis reveals mild degree of circumfe rential wall thickening of the descending colon. Colitis should be ruled out. Given the patient's increased pain with some reported blood in her stool, I will cover her with Augmentin for colitis. Her blood counts are stable from prior. I do feel she is safe for outpatient treatment with close follow-up. She is scheduled to see GI on the . She was instructed to follow-up here or with her primary care physician before then if she is worsened. She voices understanding and agreement. Return instructions provided. Discharge Plan Triage Chief Complaint: Abd Pain ED Provider: Sridevi Varela Dx/Rx/DC Orders Clinical Impression: Colitis Instructions: ED Understanding Colitis Prescriptions: New amoxicillin-pot clavulanate 875-125 mg tablet 1 tab PO BID Qty: 20 0RF dicyclomine 20 mg tablet 20 mg PO BID Qty: 20 0RF No Action topiramate 100 mg tablet 100 mg PO QHS Rx Instructions: give with 25 mg tablet to = 125 mg medroxyprogesterone [Depo-Provera] 150 mg/mL suspension 150 mg IM .q10w Patient Comments: INJECT 1ML INTRAMUSCULARILY EVERY 12 WEEKS metoclopramide HCl 5 mg tablet 2.5 mg PO QAC Qty: 15 2RF Rx Instructions: administer 30 minutes before meals aripiprazole 5 mg tablet 5 mg PO DAILY fluoxetine 40 mg capsule 20 mg PO QHS topiramate 25 mg tablet 25 mg PO DAILY Patient Comments: take 1 tablet by mouth at bedtime Rx Instructions: give with 100 mg tablet to = 125 mg epinephrine 0.3 mg/0.3 mL auto-injector 1 mg IM PRN PRN (Reason: Allergic Reaction) Patient Comments: INJECT INTO THE MUSCLE NEEDED FOR ANAPHYLAXIS REACTION albuterol sulfate 90 mcg/actuation HFA aerosol inhaler 2 puff INHALATION PRN PRN (Reason: Wheezing) Patient Comments: inhale 2 puffs by mouth and INTO THE LUNGS every 4 hours if neede... (REFER TO PRESCRIPTION NOTES). trazodone 50 mg tablet 50 mg PO QHS Patient Comments: TAKE 1 OR 2 TABLETS BY MOUTH AT BEDTIME prazosin 1 mg capsule 1 mg PO DAILY ondansetron 4 mg tablet,disintegrating 4 mg PO Q8H PRN PRN (Reason: Nausea) Qty: 10 0RF naproxen [Naprosyn] 500 mg tablet 500 mg PO BID PRN (Reason: pain) Qty: 20 0RF promethazine 25 mg tablet 25 mg PO TID PRN (Reason: nausea and vomiting) Qty: 14 0RF benzonatate 100 mg capsule 100 mg PO TID PRN Patient Comments: take 1 to 2 capsules by mouth three times a day if needed cyclobenzaprine 10 mg tablet 10 mg PO Q8H Patient Comments: take 1 tablet by mouth three times a day potassium chloride 10 mEq capsule, extended release 10 meq PO DAILY 7 Days Qty: 7 0RF pantoprazole 40 mg tablet,delayed release (DR/EC) 40 mg PO BID Qty: 60 3RF carvedilol 12.5 mg tablet 12.5 mg PO BID Qty: 180 3RF Rx Instructions: must administer with a meal/food Primary Care Provider: Monica Patterson Referrals: Monica Patterson, CLERK RATING-C [Primary Care Provider] - 1-2 Weeks Activity Restrictions/Additional Instructions: Follow-up with GI on the as scheduled. Disposition Disposition: Home, Self Care
[2023-04-26 12:15] LABS: Absolute Lymphocyte Count 1.42 X10^3/uL (0.83-4.51); Absolute Neutrophil Count 4.9 X10^3/uL (2.0-7.7); Basophil# 0.02 X10^3/uL; Basophil% 0.3 % (0-1); Eosinophil# 0.06 X10^3/uL; Eosinophils% 0.9 % (0-5); Hemoglobin 11.9 g/dL (12.0-15.0); Lymphocyte # 1.42 X10^3/ul (0.83-4.51); Lymphocyte % 20.2 % (19-41); Mean Corp Hgb Conc 31.3 g/dL (32-36); Mean Corpuscular Hgb 24.3 pg (27.0-32.0); Mean Corpuscular Volume 77.6 fL (81-99); Mean Platelet Vol. 8.4 fl (6.2-12.0); Monocyte# 0.63 X10^3/uL; NRBC Flagged by Analyzer 0 % (0-5); Neutrophil # 4.88 X10^3/uL (2.7-7.7); Neutrophil % 69.3 % (47-70); Platelet Count 487 K/mm3 (150-450); RBC Distribution Width CV 14.9 % (11.6-14.6); RBC Distribution Width SD 41.2 fl (35.1-43.9)
[2023-04-26 12:39] LABS: AST(SGOT) 8 U/L (15-37); Alanine Aminotransfer ALT/SGPT 14 U/L (13-56); Albumin, Serum 3.3 g/dL (3.2-5.0); Alkaline Phosphatase 108 U/L (45-117); Anion Gap 5 (5-15); BUN 9 mg/dL (7-18); BUN/Creat Ratio 10.1 RATIO (10-20); Bilirubin, Direct < 0.05 mg/dL (0.00-0.30); Calcium,Total 9.1 mg/dL (8.5-10.1); Chloride 112 mmol/L (98-107); Creatinine, Serum 0.89 mg/dL (0.55-1.02); EST Glomerular Filtration Rate 84 mL/min (>60); Est Glom Filt Rate - Afr Amer 101 mL/min (>60); Estimated Creatinine Clearance 100.09 ml/min; Globulin 4.3 g/dL (2.2-4.2); Glucose 93 mg/dL (74-106); Lipase 29 U/L (13-75); Potassium 3.8 mmol/L (3.5-5.1); Protein, Total 7.6 g/dL (6.4-8.2); Sodium Level 140 mmol/L (136-145)
[2023-04-26] MEDS: 0.9% Normal Saline (1000mL) 1,000 ML 150 ML IV (13:16)
[2023-04-26 13:19] VITALS: BP 119/78; PULSE 83; RESP 14; O2SAT 99
[2023-04-26 13:19] LABS: Internal QC Validated? YES +Cl - CLEAR BKGD; Pregnancy, Serum, hCG Quali. NEGATIVE Negative
[2023-04-26] MEDS: Acetaminophen 500 MG Tablet 1000 MG PO (14:08)
[2023-04-26] MEDS: Amox/Clavulanate 875 MG Tablet PO (15:08)
[2023-04-26 15:12] VITALS: BP 117/77; PULSE 84; RESP 16; O2SAT 99
== END 2023-04-26 15:13 | disposition home or self-care (01) ==
PROVIDERS: Emergency Provider Emergency Medicine; PCP Nurse Practitioner Family; Visit Provider Emergency Medicine
DX: K52.9 Noninfective gastroenteritis and colitis, unspecified (principal); F20.9 Schizophrenia, unspecified; R10.11 Right upper quadrant pain; F43.10 Post-traumatic stress disorder, unspecified; F32.A Depression, unspecified; K21.9 Gastro-esophageal reflux disease without esophagitis; F17.290 Nicotine dependence, other tobacco product, uncomplicated
CPT/HCPCS: 74177; 80048; 80076; 83690; 84703; 85025; 93005; 96361; 96372; 96374; 96375; 99283; J7030; Q9967; A4216; J2405

== ENCOUNTER 2023-04-29 22:16 | Emergency (ER) | payer MEDICAID, SELFPAY ==
[2023-04-29 22:18] VITALS: BP 117/73; PULSE 79; RESP 18; TEMP 36.3; O2SAT 97; BMI 29.9
[2023-04-30] MEDS: Morphine 4 MG/ML Syringe IV (00:18)
[2023-04-30] MEDS: MethylPREDNISolone 125 MG/2 ML Vial IV (00:18)
[2023-04-30] MEDS: 0.9% Normal Saline (1000mL) 1,000 ML 999 ML IV (00:18)
[2023-04-30] MEDS: Ondansetron 4 MG/2 ML Vial IV (00:18)
[2023-04-30 00:54] LABS: AST(SGOT) 8 U/L (15-37); Alanine Aminotransfer ALT/SGPT 13 U/L (13-56); Albumin, Serum 3.1 g/dL (3.2-5.0); Alkaline Phosphatase 100 U/L (45-117); Anion Gap 7 (5-15); BUN 9 mg/dL (7-18); BUN/Creat Ratio 10.9 RATIO (10-20); Bilirubin, Direct 0.11 mg/dL (0.00-0.30); CRP 3.96 mg/L (0.0-3.0); Calcium,Total 8.6 mg/dL (8.5-10.1); Chloride 113 mmol/L (98-107); Creatinine, Serum 0.82 mg/dL (0.55-1.02); EST Glomerular Filtration Rate 92 mL/min (>60); Est Glom Filt Rate - Afr Amer 111 mL/min (>60); Estimated Creatinine Clearance 109.42 ml/min; Globulin 3.9 g/dL (2.2-4.2); Glucose 84 mg/dL (74-106); Lactic Acid 0.5 mmol/L (0.4-1.9); Lipase 18 U/L (13-75); Potassium 3.4 mmol/L (3.5-5.1); Sodium Level 141 mmol/L (136-145)
[2023-04-30 01:01] LABS: Absolute Lymphocyte Count 2.44 X10^3/uL (0.83-4.51); Absolute Neutrophil Count 5.5 X10^3/uL (2.0-7.7); Basophil# 0.02 X10^3/uL; Basophil% 0.2 % (0-1); Eosinophil# 0.05 X10^3/uL; Eosinophils% 0.6 % (0-5); Hematocrit 35.6 % (37-47); Hemoglobin 11.4 g/dL (12.0-15.0); Lymphocyte # 2.44 X10^3/ul (0.83-4.51); Lymphocyte % 28.3 % (19-41); Mean Corpuscular Hgb 24.8 pg (27.0-32.0); Mean Corpuscular Volume 77.4 fL (81-99); Mean Platelet Vol. 8.5 fl (6.2-12.0); NRBC Flagged by Analyzer 0 % (0-5); Neutrophil # 5.45 X10^3/uL (2.7-7.7); Neutrophil % 63.1 % (47-70); Platelet Count 435 K/mm3 (150-450); RBC Distribution Width CV 15.4 % (11.6-14.6); White Blood Count 8.6 K/mm3 (4.4-11.0)
--- NOTE | 2023-04-30 01:59 | EX.ED.DYSGE1 ---
HPI History of Present Illness Chief Complaint: Abd Pain Informant: patient Narrative Narrative: Patient is a 23-year-old female with past medical history of anxiety depression and gastroparesis. She was seen on April 26 secondary to abdominal pain and had a CT scan obtained which showed changes consistent with colitis. She was placed on Augmentin and states she has been taking as directed. Reports that she has still had fevers and persistent pain and secondary to this comes in for evaluation. [facility] Medical History Anxiety Asthma Depression Diarrhea Endometriosis Gastroparesis GERD (gastroesophageal reflux disease) Migraine OCD (obsessive compulsive disorder) Pelvic pain POTS (postural orthostatic tachycardia syndrome) PTSD (post-traumatic stress disorder) Schizophrenia Tachycardia Upper abdominal pain Home Medications albuterol sulfate 90 mcg/actuation aerosol inhaler 2 puff inhalation PRN PRN Wheezing 06/14/21 [History Last Taken Unknown] epinephrine 0.3 mg/0.3 mL injection, auto-injector 1 mg IM PRN PRN Allergic Reaction 06/14/21 [History Last Taken Unknown] medroxyprogesterone 150 mg/mL intramuscular suspension (Depo-Provera) 150 mg IM .q10w 01/04/22 [History Last Taken Unknown] prazosin 1 mg capsule 1 mg PO DAILY PTSD 03/19/22 [History Last Taken Unknown] trazodone 50 mg tablet 50 mg PO QHS 03/19/22 [History Last Taken Unknown] metoclopramide HCl 5 mg tablet 2.5 mg (1/2 x 5 mg) PO QAC #15 tabs 08/08/22 [Rx Last Taken Unknown] ondansetron 4 mg disintegrating tablet 4 mg PO Q8H PRN PRN Nausea #10 tabs 09/07/22 [Rx Last Taken Unknown] pantoprazole 40 mg tablet,delayed release 40 mg PO BID #60 tabs 12/03/22 [Rx Last Taken Unknown] naproxen 500 mg tablet (Naprosyn) 500 mg PO BID PRN pain #20 tabs 12/18/22 [Rx Last Taken Unknown] aripiprazole 5 mg tablet 5 mg PO DAILY schizophrenia 01/16/23 [History Last Taken Unknown] fluoxetine 40 mg capsule 20 mg PO QHS depression 01/16/23 [History Last Taken Unknown] topiramate 100 mg tablet 100 mg PO QHS 01/16/23 [History Last Taken Unknown] topiramate 25 mg tablet 25 mg PO DAILY 01/16/23 [History Last Taken Unknown] promethazine 25 mg tablet 25 mg PO TID PRN nausea and vomiting #14 tabs 01/29/23 [Rx Last Taken Unknown] benzonatate 100 mg capsule 100 mg PO TID PRN 02/06/23 [History Last Taken Unknown] carvedilol 12.5 mg tablet 12.5 mg PO BID #180 tabs 02/11/23 [Rx Last Taken Unknown] cyclobenzaprine 10 mg tablet 10 mg PO Q8H 03/02/23 [History Last Taken Unknown] potassium chloride 10 mEq capsule,extended release 10 meq PO DAILY 7 days #7 caps 03/02/23 [Rx Last Taken Unknown] amoxicillin 875 mg-potassium clavulanate 125 mg tablet 1 tab PO BID #20 tabs 04/26/23 [Rx Last Taken Unknown] dicyclomine 20 mg tablet 20 mg PO BID #20 tabs 04/26/23 [Rx Last Taken Unknown] diphenoxylate-atropine 2.5 mg-0.025 mg tablet (Lomotil) 1 tab PO DAILY PRN diarrhea 5 days #20 tabs 04/30/23 [Rx Last Taken Unknown] oxycodone-acetaminophen 5 mg-325 mg tablet (Percocet) 1 tab PO Q6H PRN pain 3 days #12 tabs 04/30/23 [Rx Last Taken Unknown] Allergy/AdvReac Type Severity Reaction Status Date / Time gabapentin Allergy Rash Verified 04/29/23 22:18 glycerin [From Nasal-Ease] Allergy Swelling Verified 04/29/23 22:18 methylcellulose Allergy Swelling Verified 04/29/23 22:18 [From Nasal-Ease] sertraline [From Zoloft] Allergy Anaphylaxis Verified 04/29/23 22:18 silicone Allergy Rash Verified 04/29/23 22:18 sodium chloride Allergy Swelling Verified 04/29/23 22:18 [From Nasal-Ease] zinc [From Nasal-Ease] Allergy Swelling Verified 04/29/23 22:18 lactose AdvReac Upset Verified 04/29/23 22:18 Stomach Family History Father Anxiety Depression Asthma Hypertension Mother Asthma Diabetes Anxiety Depression CAD (coronary artery disease) Myocardial infarction, Onset Age: 42 Brother Oleksandr-Danlos syndrome Grandmother Myocardial infarction, Onset Age: 41 Grandfather Myocardial infarction, Onset Age: 38 Surgical History History of colonoscopy History of esophagogastroduodenoscopy (EGD) Hx of laparoscopy Social History household members: none Smoking Status: Current every day smoker tobacco type: e-cigarettes alcohol intake: current alcohol intake frequency: holidays/special occasions only substance use type: does not use caffeine: Yes Type: carbonated beverages, coffee and tea ROS ROS ED Constitutional Constitutional ED: Reports chills and fever(s) ENT ENT ED: Denies sore throat Cardiovascular Cardiovascular: Denies chest pain Respiratory/Chest Respiratory/Chest: Denies cough or dyspnea Gastrointestinal Gastrointestinal: Reports abdominal pain, diarrhea and nausea; Denies vomiting Genitourinary Genitourinary ED: Denies dysuria or hematuria Musculoskeletal Musculoskeletal: Denies myalgias Integumentary Denies rash Neurologic Neurologic: Denies headache(s) Hematologic/Lymphatic Hematologic/Lymphatic: Denies easy bleeding or easy bruising EXAM Physical Exam Const Vital Signs: 04/30/23 02:00 Pulse Rate 87 Respiratory Rate 16 Blood Pressure 115/77 Blood Pressure Mean 89 Pulse Ox 98 Positive well nourished and well developed General Appearance ED: well developed; Negative for pallor HEENT Reports moist mucous membranes Eyes PERRL and EOMs intact bilaterally General Eye ED: Negative for scleral icterus Neck supple Resp normal respiratory effort and clear to auscultation bilaterally Cardio regular rate and regular rhythm Rate: other Other Details: Radial and carotid pulses are equal and symmetric GI non-distended GI Narrative: Abdomen is soft and nondistended with hyperactive bowel sounds. There is mild pain on palpation in the mid to left lower quadrant without voluntary guarding or rigidity. No pulsatile mass or fluid wave Auscultation: hyperactive bowel sounds Palpation: soft Back/Spine no CVA tenderness Extremity normal to inspection Neuro oriented x3, CN's II-XII intact bilaterally and no sensory deficits noted Sensorium / Orientation: alert Motor Exam: strength 5/5 throughout Psych Psych Narrative: Patient has a flat affect Skin no rashes or lesions noted General Skin Exam: Negative for jaundice or pallor MDM MDM MDM Narrative Medical decision making narrative: Patient presented to the ER afebrile with stable vitals. She reported having fevers at home but denied taking any type of antipyretic medication. As she was recently diagnosed with colitis and had a CT scan I did not feel need for any emergent imaging studies this time around but elected to start with basic laboratory values. Differential diagnosis is for persistent colitis versus adverse medication effect versus intestinal abscess versus obstruction. Based on the patient's soft abdomen and recent CT scan did not feel need for repeat imaging but elected to begin with basic laboratory values. His white count and lactic acid are normal going against systemic infection. CRP is slightly elevated at 3.96 which does correlate with the inflammatory changes of the recent diagnosis of colitis. After IV hydration and pain control patient reported feeling better and her abdomen remains soft and nonsurgical. Therefore do not feel there is need for repeat imaging studies and she can continue her Augmentin will be provided pain and diarrhea control and is otherwise safe for discharge. History & Record Review Discussion w/independent historian: Patient Lab Data Attestation: I reviewed the patient's lab results. Labs: Laboratory Results - last 24 hr 04/30/23 00:10 WBC 8.6 RBC 4.60 Hgb 11.4 L Hct 35.6 L MCV 77.4 L MCH 24.8 L MCHC 32.0 RDW Std Deviation 43.0 RDW Coeff of Anoop 15.4 H Plt Count 435 MPV 8.5 Immature Gran % (Auto) 0.800 Neut % (Auto) 63.1 Lymph % (Auto) 28.3 Carbon % (Auto) 7.0 Eos % (Auto) 0.6 Baso % (Auto) 0.2 Absolute Neuts (auto) 5.5 Absolute Lymphs (auto) 2.44 Nucleated RBC % 0 Sodium 141 Potassium 3.4 L Chloride 113 H Carbon Dioxide 21.0 Anion Gap 7 BUN 9 Creatinine 0.82 Estim Creat Clear Calc 109.42 Est GFR (MDRD) Af Amer 111 Est GFR (MDRD) Non-Af 92 BUN/Creatinine Ratio 10.9 Glucose 84 Lactic Acid 0.5 Calcium 8.6 Total Bilirubin 0.20 Direct Bilirubin 0.11 AST 8 L ALT 13 Alkaline Phosphatase 100 C-React Prot Ext Range 3.96 H Total Protein 7.0 Albumin 3.1 L Globulin 3.9 Lipase 18 Discharge Plan Triage Chief Complaint: Abd Pain ED Provider: Bryant Reyes Dx/Rx/DC Orders Clinical Impression: Colitis, Bipolar disorder, Hypothyroidism Instructions: ED Understanding Colitis Prescriptions: New diphenoxylate-atropine [Lomotil] 2.5-0.025 mg tablet 1 tab PO DAILY PRN (Reason: diarrhea) 5 Days Qty: 20 0RF oxycodone-acetaminophen [Percocet] 5-325 mg tablet 1 tab PO Q6H PRN (Reason: pain) 3 Days Qty: 12 0RF No Action topiramate 100 mg tablet 100 mg PO QHS Rx Instructions: give with 25 mg tablet to = 125 mg medroxyprogesterone [Depo-Provera] 150 mg/mL suspension 150 mg IM .q10w Patient Comments: INJECT 1ML INTRAMUSCULARILY EVERY 12 WEEKS metoclopramide HCl 5 mg tablet 2.5 mg PO QAC Qty: 15 2RF Rx Instructions: administer 30 minutes before meals aripiprazole 5 mg tablet 5 mg PO DAILY fluoxetine 40 mg capsule 20 mg PO QHS topiramate 25 mg tablet 25 mg PO DAILY Patient Comments: take 1 tablet by mouth at bedtime Rx Instructions: give with 100 mg tablet to = 125 mg epinephrine 0.3 mg/0.3 mL auto-injector 1 mg IM PRN PRN (Reason: Allergic Reaction) Patient Comments: INJECT INTO THE MUSCLE NEEDED FOR ANAPHYLAXIS REACTION albuterol sulfate 90 mcg/actuation HFA aerosol inhaler 2 puff INHALATION PRN PRN (Reason: Wheezing) Patient Comments: inhale 2 puffs by mouth and INTO THE LUNGS every 4 hours if neede... (REFER TO PRESCRIPTION NOTES). trazodone 50 mg tablet 50 mg PO QHS Patient Comments: TAKE 1 OR 2 TABLETS BY MOUTH AT BEDTIME prazosin 1 mg capsule 1 mg PO DAILY ondansetron 4 mg tablet,disintegrating 4 mg PO Q8H PRN PRN (Reason: Nausea) Qty: 10 0RF naproxen [Naprosyn] 500 mg tablet 500 mg PO BID PRN (Reason: pain) Qty: 20 0RF promethazine 25 mg tablet 25 mg PO TID PRN (Reason: nausea and vomiting) Qty: 14 0RF benzonatate 100 mg capsule 100 mg PO TID PRN Patient Comments: take 1 to 2 capsules by mouth three times a day if needed cyclobenzaprine 10 mg tablet 10 mg PO Q8H Patient Comments: take 1 tablet by mouth three times a day potassium chloride 10 mEq capsule, extended release 10 meq PO DAILY 7 Days Qty: 7 0RF amoxicillin-pot clavulanate 875-125 mg tablet 1 tab PO BID Qty: 20 0RF dicyclomine 20 mg tablet 20 mg PO BID Qty: 20 0RF pantoprazole 40 mg tablet,delayed release (DR/EC) 40 mg PO BID Qty: 60 3RF carvedilol 12.5 mg tablet 12.5 mg PO BID Qty: 180 3RF Rx Instructions: must administer with a meal/food Primary Care Provider: Monica Patterson Referrals: Monica Patterson, [facility]ARN[facility] [Primary Care Provider] - Activity Restrictions/Additional Instructions: Please continue the Augmentin to help resolve your colitis. Use the Lomotil for diarrhea control and Percocet for pain control. If you have any further concerns or worsening of symptoms please return to the ER for repeat evaluation Disposition Disposition: Home, Self Care Discharge Date/Time: 04/30/23 02:13 Capacity Legal [employer] Reflex Medical hold order details:: IF a medical hold is selected below, a suggested order for a MEDICAL HOLD will reflex upon signing the document. Next of kin: [place] law dictates a PRIORITY LIST for identifying legal decision-maker/legal next of kin in the following order (LNOK): 1st: The patient?s legal guardian, if any 2nd: The patient's spouse (if status is questionable, consult Risk Management) 3rd: The patient?s adult child(nayan) (majority, if multiple children) 4th: The patient?s parents 5th: The patient?s adult siblings (majority, if multiple children siblings)
[2023-04-30 02:00] VITALS: BP 115/77; PULSE 87; RESP 16; O2SAT 98
[2023-04-30] MEDS: Oxycodone/Apap 5/325 Tablet PO (02:08)
== END 2023-04-30 02:13 | disposition home or self-care (01) ==
PROVIDERS: Emergency Provider Emergency Medicine; PCP Nurse Practitioner Family; Visit Provider Emergency Medicine
DX: K52.9 Noninfective gastroenteritis and colitis, unspecified (principal); F20.9 Schizophrenia, unspecified; F31.9 Bipolar disorder, unspecified; E03.9 Hypothyroidism, unspecified; Z79.3 Long term (current) use of hormonal contraceptives; F43.10 Post-traumatic stress disorder, unspecified; K21.9 Gastro-esophageal reflux disease without esophagitis; F17.290 Nicotine dependence, other tobacco product, uncomplicated
CPT/HCPCS: 80048; 80076; 83605; 83690; 85025; 86140; 96361; 96374; 96375; 99282; J7030; A4216; J2405

== ENCOUNTER 2023-05-02 16:30 | Emergency (ER) | payer MEDICAID, SELFPAY ==
[2023-05-02 16:31] VITALS: BP 108/75; PULSE 81; RESP 18; TEMP 35.8; O2SAT 100; BMI 30.2
[2023-05-02] MEDS: 0.9% Normal Saline (1000mL) 1,000 ML 1000 ML IV (18:04)
[2023-05-02 18:14] LABS: Absolute Lymphocyte Count 2.75 X10^3/uL (0.83-4.51); Absolute Neutrophil Count 4.1 X10^3/uL (2.0-7.7); Basophil# 0.02 X10^3/uL; Basophil% 0.3 % (0-1); Eosinophil# 0.08 X10^3/uL; Eosinophils% 1.1 % (0-5); Hematocrit 39.6 % (37-47); Hemoglobin 12.7 g/dL (12.0-15.0); Lymphocyte # 2.75 X10^3/ul (0.83-4.51); Lymphocyte % 36.3 % (19-41); Mean Corp Hgb Conc 32.1 g/dL (32-36); Mean Corpuscular Volume 78.1 fL (81-99); Mean Platelet Vol. 8.3 fl (6.2-12.0); Monocyte# 0.58 X10^3/uL; Monocyte% 7.7 % (0-10); NRBC Flagged by Analyzer 0 % (0-5); Neutrophil # 4.12 X10^3/uL (2.7-7.7); Neutrophil % 54.3 % (47-70); Platelet Count 434 K/mm3 (150-450); RBC Distribution Width CV 15.3 % (11.6-14.6); RBC Distribution Width SD 43.1 fl (35.1-43.9); Red Blood Count 5.07 M/mm3 (4.2-5.4); White Blood Count 7.6 K/mm3 (4.4-11.0)
--- NOTE | 2023-05-02 18:31 | CT_ITS ---
STUDY: CT ABDOMEN AND PELVIS WITH CONTRAST REASON FOR EXAM: Female, 23 years old. abdominal pain RADIATION DOSAGE (If Supplied By Facility): CTDIvol = ( 13.48 ) mGy, DLP = ( 690.92 ) mGycm TECHNIQUE: Transaxial images were obtained from the dome of the diaphragm to the symphysis pubis without oral contrast. IV 100mL Isovue-370 was administered. Sagittal and coronal images were reconstructed. Individualized dose optimization techniques were used for this CT. COMPARISON: 04/26/2023 FINDINGS: The visualized lung bases are unremarkable. The visualized portions of the heart are within normal limits. Normal liver. The gallbladder is contracted. Normal spleen. Normal pancreas. Normal bilateral adrenal glands. Normal right kidney. Normal left kidney. Normal visualized stomach. Normal small intestine. Normal colon. The appendix is visualized and appears normal. Normal abdominal aorta. Normal inferior vena cava. Normal retroperitoneum. Normal urinary bladder. Normal abdominal wall. Normal osseous structures. CT/Abdomen/Pelvis W IV Cont ONLY IMPRESSION: Normal enhanced CT of the abdomen and pelvis. Electronically Signed: Zack Barrett MD at 19:45 EST ,
--- NOTE | 2023-05-02 18:31 | ED.VIS.GI ---
HPI HPI - GI History of Present Illness Chief Complaint: Abd Pain Narrative Narrative: 23-year-old female with history of chronic abdominal pain, gastroparesis, chronic pelvic pain, POTS presenting with abdominal pain. This is the patient's sixth visit to the ER since 15 April for abdominal pain. She was diagnosed with colitis at 1 point and went home on Augmentin. She returned for pain and her blood work was normal. She was put on oxycodone but states that she is now having more pain. She states she is not having bowel movements. She reports that she saw her GI doctor at [facility] yesterday with similar pains and told the GI doctor that she was constipated although the GI doctor did not offer her any constipation medications or treatments. Patient states that the GI doctor she spoke with yesterday told her to go to the ER if she had any worsening symptoms. She states this physician is from [facility]. Patient has seen Dr. Hdz in the past. She states she is taking MiraLAX and some small red pill for constipation without relief. PFSH [facility] Medical History Anxiety Asthma Depression Diarrhea Endometriosis Gastroparesis GERD (gastroesophageal reflux disease) Migraine OCD (obsessive compulsive disorder) Pelvic pain POTS (postural orthostatic tachycardia syndrome) PTSD (post-traumatic stress disorder) Schizophrenia Tachycardia Upper abdominal pain Home Medications albuterol sulfate 90 mcg/actuation aerosol inhaler 2 puff inhalation PRN PRN Wheezing 06/14/21 [History Last Taken Unknown] epinephrine 0.3 mg/0.3 mL injection, auto-injector 1 mg IM PRN PRN Allergic Reaction 06/14/21 [History Last Taken Unknown] medroxyprogesterone 150 mg/mL intramuscular suspension (Depo-Provera) 150 mg IM .q10w 01/04/22 [History Last Taken Unknown] prazosin 1 mg capsule 1 mg PO DAILY PTSD 03/19/22 [History Last Taken Unknown] trazodone 50 mg tablet 50 mg PO QHS 03/19/22 [History Last Taken Unknown] metoclopramide HCl 5 mg tablet 2.5 mg (1/2 x 5 mg) PO QAC #15 tabs 08/08/22 [Rx Last Taken Unknown] ondansetron 4 mg disintegrating tablet 4 mg PO Q8H PRN PRN Nausea #10 tabs 09/07/22 [Rx Last Taken Unknown] pantoprazole 40 mg tablet,delayed release 40 mg PO BID #60 tabs 12/03/22 [Rx Last Taken Unknown] naproxen 500 mg tablet (Naprosyn) 500 mg PO BID PRN pain #20 tabs 12/18/22 [Rx Last Taken Unknown] aripiprazole 5 mg tablet 5 mg PO DAILY schizophrenia 01/16/23 [History Last Taken Unknown] fluoxetine 40 mg capsule 20 mg PO QHS depression 01/16/23 [History Last Taken Unknown] topiramate 100 mg tablet 100 mg PO QHS 01/16/23 [History Last Taken Unknown] topiramate 25 mg tablet 25 mg PO DAILY 01/16/23 [History Last Taken Unknown] promethazine 25 mg tablet 25 mg PO TID PRN nausea and vomiting #14 tabs 01/29/23 [Rx Last Taken Unknown] benzonatate 100 mg capsule 100 mg PO TID PRN 02/06/23 [History Last Taken Unknown] carvedilol 12.5 mg tablet 12.5 mg PO BID #180 tabs 02/11/23 [Rx Last Taken Unknown] cyclobenzaprine 10 mg tablet 10 mg PO Q8H 03/02/23 [History Last Taken Unknown] potassium chloride 10 mEq capsule,extended release 10 meq PO DAILY 7 days #7 caps 03/02/23 [Rx Last Taken Unknown] amoxicillin 875 mg-potassium clavulanate 125 mg tablet 1 tab PO BID #20 tabs 04/26/23 [Rx Last Taken Unknown] dicyclomine 20 mg tablet 20 mg PO BID #20 tabs 04/26/23 [Rx Last Taken Unknown] diphenoxylate-atropine 2.5 mg-0.025 mg tablet (Lomotil) 1 tab PO DAILY PRN diarrhea 5 days #20 tabs 04/30/23 [Rx Last Taken Unknown] oxycodone-acetaminophen 5 mg-325 mg tablet (Percocet) 1 tab PO Q6H PRN pain 3 days #12 tabs 04/30/23 [Rx Last Taken Unknown] metoclopramide HCl 10 mg tablet (Reglan) 10 mg PO Q6H PRN nausea and vomiting #14 tabs 05/02/23 [Rx Last Taken Unknown] ondansetron 4 mg disintegrating tablet 4 mg PO Q8H PRN PRN Nausea #14 tabs 05/02/23 [Rx Last Taken Unknown] Allergy/AdvReac Type Severity Reaction Status Date / Time gabapentin Allergy Rash Verified 05/02/23 16:31 glycerin [From Nasal-Ease] Allergy Swelling Verified 05/02/23 16:31 methylcellulose Allergy Swelling Verified 05/02/23 16:31 [From Nasal-Ease] sertraline [From Zoloft] Allergy Anaphylaxis Verified 05/02/23 16:31 silicone Allergy Rash Verified 05/02/23 16:31 sodium chloride Allergy Swelling Verified 05/02/23 16:31 [From Nasal-Ease] zinc [From Nasal-Ease] Allergy Swelling Verified 05/02/23 16:31 lactose AdvReac Upset Verified 05/02/23 16:31 Stomach Family History Father Anxiety Depression Asthma Hypertension Mother Asthma Diabetes Anxiety Depression CAD (coronary artery disease) Myocardial infarction, Onset Age: 42 Brother Oleksandr-Danlos syndrome Grandmother Myocardial infarction, Onset Age: 41 Grandfather Myocardial infarction, Onset Age: 38 Surgical History History of colonoscopy History of esophagogastroduodenoscopy (EGD) Hx of laparoscopy Social History household members: none Smoking Status: Current every day smoker tobacco type: e-cigarettes alcohol intake: current alcohol intake frequency: holidays/special occasions only substance use type: does not use caffeine: Yes Type: carbonated beverages, coffee and tea ROS ROS ED Constitutional Constitutional ED: Denies chills, fever(s) or sweats Eyes Eyes: Denies blurry vision or change in vision ENT ENT ED: Denies ear pain or sore throat Cardiovascular Cardiovascular: Denies chest pain, palpitations or racing heartbeat Respiratory/Chest Respiratory/Chest: Denies cough, dyspnea or sputum Gastrointestinal Gastrointestinal: Reports abdominal pain, nausea and vomiting; Denies constipation or diarrhea Genitourinary Genitourinary ED: Denies dysuria, hematuria or urinary frequency Musculoskeletal Musculoskeletal: Denies arthralgias, myalgias or neck pain Integumentary Denies abscess, Abrasions or rash Neurologic Neurologic: Denies headache(s), paresthesias or weakness Psychiatric Psychiatric: Denies anxiety, depression, suicidal ideation or suicidal thoughts Endocrine Endocrinology: Denies polydipsia or polyuria EXAM Physical Exam Const Vital Signs: 05/02/23 16:31 Temperature 96.5 F L Temperature Source Temporal Pulse Rate 81 Respiratory Rate 18 Blood Pressure 108/75 Blood Pressure Mean 86 Pulse Ox 100 Oxygen Delivery Method Room Air MDM MDM MDM Narrative Medical decision making narrative: 23-year-old female with chronic abdominal pain presenting with worsening pain and nausea and vomiting. Abdominal exam is benign. Differential includes colitis, diverticulitis, UTI, pyelonephritis, gastritis, GERD, cholecystitis, pancreatitis. CBC will be obtained to assess white blood cell count, hemoglobin, platelets. CMP to assess liver function, electrolytes, renal function, glucose. Lipase to assess for pancreatitis. Patient medicated with Toradol and Zofran. She given a liter normal saline. CBC shows normal white blood cell count of 7.6. Hemoglobin stable at 12.7. Platelets are normal at 434. Renal function and electrolytes within normal limits. This is an exception of potassium of 3.3. LFTs are normal. Lipase is normal. CT of the abdomen pelvis with IV contrast is obtained and shows no acute process. Patient counseled on these findings. She sent home with Regreggie to help with her gastroparesis and she also given Zofran for nausea. She is to drink plenty of fluids and follow-up with her GI. Return precautions discussed. Impression: 1. Nausea/vomiting 2. Abdominal pain 3. History of gastroparesis Lab Data Attestation: I reviewed the patient's lab results. Labs: Laboratory Results - last 24 hr 05/02/23 18:05 WBC 7.6 RBC 5.07 Hgb 12.7 Hct 39.6 MCV 78.1 L MCH 25.0 L MCHC 32.1 RDW Std Deviation 43.1 RDW Coeff of Anoop 15.3 H Plt Count 434 MPV 8.3 Immature Gran % (Auto) 0.300 Neut % (Auto) 54.3 Lymph % (Auto) 36.3 [place] % (Auto) 7.7 Eos % (Auto) 1.1 Baso % (Auto) 0.3 Absolute Neuts (auto) 4.1 Absolute Lymphs (auto) 2.75 Nucleated RBC % 0 Sodium 141 Potassium 3.3 L Chloride 114 H Carbon Dioxide 23.0 Anion Gap 4 L BUN 7 Creatinine 0.91 Estim Creat Clear Calc 99.13 Est GFR (MDRD) Af Amer 99 Est GFR (MDRD) Non-Af 82 BUN/Creatinine Ratio 7.7 L Glucose 75 Calcium 9.3 Total Bilirubin 0.20 AST 8 L ALT 16 Alkaline Phosphatase 101 Total Protein 7.5 Albumin 3.4 Globulin 4.1 Albumin/Globulin Ratio 0.8 L Lipase 19 Radiography Diagnostic Testing: Clinical Impression(s) from Imaging Studies Abdomen/Pelvis CT 05/02/23 18:31 IMPRESSION: Normal enhanced CT of the abdomen and pelvis. Electronically Signed: Zack Barrett MD at 19:45 EST , Discharge Plan Triage Chief Complaint: Abd Pain Other Complaint: Constipation Nausea/Vomiting ED Provider: Jaylen Delgado Dx/Rx/DC Orders Instructions: ED Abdominal Pain Unkn Cause Fem Prescriptions: New metoclopramide HCl [Reglan] 10 mg tablet 10 mg PO Q6H PRN (Reason: nausea and vomiting) Qty: 14 0RF ondansetron 4 mg tablet,disintegrating 4 mg PO Q8H PRN PRN (Reason: Nausea) Qty: 14 0RF No Action topiramate 100 mg tablet 100 mg PO QHS Rx Instructions: give with 25 mg tablet to = 125 mg medroxyprogesterone [Depo-Provera] 150 mg/mL suspension 150 mg IM .q10w Patient Comments: INJECT 1ML INTRAMUSCULARILY EVERY 12 WEEKS metoclopramide HCl 5 mg tablet 2.5 mg PO QAC Qty: 15 2RF Rx Instructions: administer 30 minutes before meals aripiprazole 5 mg tablet 5 mg PO DAILY fluoxetine 40 mg capsule 20 mg PO QHS topiramate 25 mg tablet 25 mg PO DAILY Patient Comments: take 1 tablet by mouth at bedtime Rx Instructions: give with 100 mg tablet to = 125 mg epinephrine 0.3 mg/0.3 mL auto-injector 1 mg IM PRN PRN (Reason: Allergic Reaction) Patient Comments: INJECT INTO THE MUSCLE NEEDED FOR ANAPHYLAXIS REACTION albuterol sulfate 90 mcg/actuation HFA aerosol inhaler 2 puff INHALATION PRN PRN (Reason: Wheezing) Patient Comments: inhale 2 puffs by mouth and INTO THE LUNGS every 4 hours if neede... (REFER TO PRESCRIPTION NOTES). trazodone 50 mg tablet 50 mg PO QHS Patient Comments: TAKE 1 OR 2 TABLETS BY MOUTH AT BEDTIME prazosin 1 mg capsule 1 mg PO DAILY ondansetron 4 mg tablet,disintegrating 4 mg PO Q8H PRN PRN (Reason: Nausea) Qty: 10 0RF naproxen [Naprosyn] 500 mg tablet 500 mg PO BID PRN (Reason: pain) Qty: 20 0RF promethazine 25 mg tablet 25 mg PO TID PRN (Reason: nausea and vomiting) Qty: 14 0RF benzonatate 100 mg capsule 100 mg PO TID PRN Patient Comments: take 1 to 2 capsules by mouth three times a day if needed cyclobenzaprine 10 mg tablet 10 mg PO Q8H Patient Comments: take 1 tablet by mouth three times a day potassium chloride 10 mEq capsule, extended release 10 meq PO DAILY 7 Days Qty: 7 0RF amoxicillin-pot clavulanate 875-125 mg tablet 1 tab PO BID Qty: 20 0RF dicyclomine 20 mg tablet 20 mg PO BID Qty: 20 0RF diphenoxylate-atropine [Lomotil] 2.5-0.025 mg tablet 1 tab PO DAILY PRN (Reason: diarrhea) 5 Days Qty: 20 0RF oxycodone-acetaminophen [Percocet] 5-325 mg tablet 1 tab PO Q6H PRN (Reason: pain) 3 Days Qty: 12 0RF pantoprazole 40 mg tablet,delayed release (DR/EC) 40 mg PO BID Qty: 60 3RF carvedilol 12.5 mg tablet 12.5 mg PO BID Qty: 180 3RF Rx Instructions: must administer with a meal/food Primary Care Provider: Monica Patterson Referrals: Monica Patterson NP-C [Primary Care Provider] - Disposition Disposition: Home, Self Care Capacity [employer] Reflex Medical hold order details:: IF a medical hold is selected below, a suggested order for a MEDICAL HOLD will reflex upon signing the document. Next of kin: [place] law dictates a PRIORITY LIST for identifying legal decision-maker/legal next of kin in the following order (LNOK): 1st: The patient?s legal guardian, if any 2nd: The patient's spouse (if status is questionable, consult Risk Management) 3rd: The patient?s adult child(nayan) (majority, if multiple children) 4th: The patient?s parents 5th: The patient?s adult siblings (majority, if multiple children siblings)
[2023-05-02 18:32] LABS: ALB/GLOB Ratio 0.8 RATIO (0.9-2.4); AST(SGOT) 8 U/L (15-37); Alanine Aminotransfer ALT/SGPT 16 U/L (13-56); Albumin, Serum 3.4 g/dL (3.2-5.0); Alkaline Phosphatase 101 U/L (45-117); Anion Gap 4 (5-15); BUN 7 mg/dL (7-18); BUN/Creat Ratio 7.7 RATIO (10-20); Calcium,Total 9.3 mg/dL (8.5-10.1); Chloride 114 mmol/L (98-107); Creatinine, Serum 0.91 mg/dL (0.55-1.02); EST Glomerular Filtration Rate 82 mL/min (>60); Est Glom Filt Rate - Afr Amer 99 mL/min (>60); Estimated Creatinine Clearance 99.13 ml/min; Globulin 4.1 g/dL (2.2-4.2); Glucose 75 mg/dL (74-106); Lipase 19 U/L (13-75); Potassium 3.3 mmol/L (3.5-5.1); Protein, Total 7.5 g/dL (6.4-8.2); Sodium Level 141 mmol/L (136-145)
[2023-05-02] MEDS: Ketorolac 15 MG/ML Vial IV (18:35)
[2023-05-02] MEDS: Ondansetron 4 MG/2 ML Vial IV (18:35)
[2023-05-02 20:25] VITALS: BP 125/71; PULSE 78; RESP 16; O2SAT 97
== END 2023-05-02 20:27 | disposition home or self-care (01) ==
PROVIDERS: Emergency Provider Student in an Organized Health Care Education/Training Program; PCP Nurse Practitioner Family; Visit Provider Student in an Organized Health Care Education/Training Program
DX: F20.9 Schizophrenia, unspecified (principal); K21.9 Gastro-esophageal reflux disease without esophagitis; Z79.899 Other long term (current) drug therapy; F32.A Depression, unspecified; G43.909 Migraine, unspecified, not intractable, without status migrainosus; F17.290 Nicotine dependence, other tobacco product, uncomplicated; R11.2 Nausea with vomiting, unspecified; R10.9 Unspecified abdominal pain; Z87.19 Personal history of other diseases of the digestive system
CPT/HCPCS: 74177; 80053; 83690; 85025; 96361; 96374; 96375; 99283; J7030; Q9967; A4216; J2405

== ENCOUNTER 2023-05-07 19:23 | Emergency (ER) | payer MEDICAID, SELFPAY ==
[2023-05-07 19:25] VITALS: BP 128/74; PULSE 80; RESP 18; TEMP 36.2; O2SAT 96; BMI 29.0
[2023-05-07] MEDS: 0.9% Normal Saline (1000mL) 1,000 ML 999 ML IV (20:05)
--- NOTE | 2023-05-07 20:21 | EDS_ITS ---
HPI History of Present Illness Chief Complaint: Abd Pain Narrative Narrative: 23-year-old female with multiple visits to the emergency department for chest pain and abdominal pain presents because she states that she called her respiratory therapy director and they want her electrolytes checked. She relates history that she was diagnosed by her GI physician at the [facility] with C. difficile yesterday. She has a history of colitis and was on antibiotics. Over the last 24 hours she has had multiple episodes of nausea and vomiting, abdominal pain, feels lightheaded and dizzy, is having chest pain. She states she called her respiratory therapy director and they were concerned that she might be dehydrated and told her to come to the emergency department to get her electrolytes checked. [facility] Medical History Anxiety Asthma Depression Diarrhea Endometriosis Gastroparesis GERD (gastroesophageal reflux disease) Migraine OCD (obsessive compulsive disorder) Pelvic pain POTS (postural orthostatic tachycardia syndrome) PTSD (post-traumatic stress disorder) Schizophrenia Smoker Tachycardia Upper abdominal pain Home Medications albuterol sulfate 90 mcg/actuation aerosol inhaler 2 puff inhalation PRN PRN Wheezing 06/14/21 [History Last Taken Unknown] epinephrine 0.3 mg/0.3 mL injection, auto-injector 1 mg IM PRN PRN Allergic Reaction 06/14/21 [History Last Taken Unknown] medroxyprogesterone 150 mg/mL intramuscular suspension (Depo-Provera) 150 mg IM .q10w 01/04/22 [History Last Taken Unknown] prazosin 1 mg capsule 1 mg PO DAILY PTSD 03/19/22 [History Last Taken Unknown] trazodone 50 mg tablet 50 mg PO QHS 03/19/22 [History Last Taken Unknown] ondansetron 4 mg disintegrating tablet 4 mg PO Q8H PRN PRN Nausea #10 tabs 09/07/22 [Rx Last Taken Unknown] pantoprazole 40 mg tablet,delayed release 40 mg PO BID #60 tabs 12/03/22 [Rx Last Taken Unknown] naproxen 500 mg tablet (Naprosyn) 500 mg PO BID PRN pain #20 tabs 12/18/22 [Rx Last Taken Unknown] aripiprazole 5 mg tablet 10 mg PO DAILY schizophrenia 01/16/23 [History Last Taken Unknown] fluoxetine 40 mg capsule 40 mg PO QHS depression 01/16/23 [History Last Taken Unknown] topiramate 100 mg tablet 100 mg PO QHS 01/16/23 [History Last Taken Unknown] topiramate 25 mg tablet 25 mg PO DAILY 01/16/23 [History Last Taken Unknown] carvedilol 12.5 mg tablet 12.5 mg PO BID #180 tabs 02/11/23 [Rx Last Taken Unknown] metoclopramide HCl 10 mg tablet (Reglan) 10 mg PO Q6H PRN nausea and vomiting #14 tabs 05/02/23 [Rx Last Taken Unknown] ondansetron 4 mg disintegrating tablet 4 mg PO Q8H PRN PRN Nausea #14 tabs 05/02/23 [Rx Last Taken Unknown] hyoscyamine sulfate 0.125 mg tablet (Levsin) 0.125 mg PO Q6H PRN pain 05/07/23 [History Last Taken Unknown] Allergy/AdvReac Type Severity Reaction Status Date / Time gabapentin Allergy Rash Verified 05/07/23 19:25 glycerin [From Nasal-Ease] Allergy Swelling Verified 05/07/23 19:25 methylcellulose Allergy Swelling Verified 05/07/23 19:25 [From Nasal-Ease] sertraline [From Zoloft] Allergy Anaphylaxis Verified 05/07/23 19:25 silicone Allergy Rash Verified 05/07/23 19:25 sodium chloride Allergy Swelling Verified 05/07/23 19:25 [From Nasal-Ease] zinc [From Nasal-Ease] Allergy Swelling Verified 05/07/23 19:25 lactose AdvReac Upset Verified 05/07/23 19:25 Stomach Family History Father Anxiety Depression Asthma Hypertension Mother Asthma Diabetes Anxiety Depression CAD (coronary artery disease) Myocardial infarction, Onset Age: 42 Brother Oleksandr-Danlos syndrome Grandmother Myocardial infarction, Onset Age: 41 Grandfather Myocardial infarction, Onset Age: 38 Surgical History History of colonoscopy History of esophagogastroduodenoscopy (EGD) Hx of laparoscopy Social History household members: none Smoking Status: Current every day smoker tobacco type: e-cigarettes alcohol intake: current alcohol intake frequency: holidays/special occasions only substance use type: does not use caffeine: Yes Type: carbonated beverages, coffee and tea ROS ROS ED ROS Narrative Constitutional: No fever, no chills. HEENT: No sore throat. No neck pain. No loss of vision. No rhinorrhea. Cardiovascular: Positive chest pain. No palpitations. No pedal edema. Respiratory: No cough, no shortness of breath. Abdominal: Positive abdominal pain. Nausea and vomiting. Loose stool with history of recent diagnosis of C. difficile. Genitourinary: No dysuria. No hematuria. Musculoskeletal: No myalgias. No arthralgias. Neurologic: No headaches. Positive lightheadedness and dizziness. Skin: No rash. No change in color. Psychiatric: No depression. No anxiety. EXAM Physical Exam Narrative Exam Narrative: Afebrile. Vital signs noted. HEENT: Normocephalic. Atraumatic. PERRL, EOMI. Neck soft and supple. No point tenderness or step off. Cardiovascular: Regular rate and rhythm. No murmurs, rubs, or gallops appreciated. Respiratory: No tachypnea. Lungs clear to auscultation bilaterally. Gastrointestinal: Abdomen soft, nontender, with normoactive bowel sounds. No rebound or guarding. Neurological: Awake. Alert. Nonfocal, nonlateralizing. Skin: No rash. Normal color. No pallor. Musculoskeletal: No pedal edema. Full range of motion extremities. Const Vital Signs: 05/07/23 19:25 05/07/23 20:35 Temperature 97.2 F L Temperature Source Temporal Pulse Rate 80 65 Respiratory Rate 18 19 H Blood Pressure 128/74 H 100/74 Blood Pressure Mean 92 82 Pulse Ox 96 100 Oxygen Delivery Method Room Air Room Air MDM MDM MDM Narrative Medical decision making narrative: I have low concern for acute coronary syndrome. Patient has been worked up multiple times in the emergency department for her chest pain. Suspicion would be for dehydration given her reported nausea and vomiting and loose stools. I do not feel CT of the abdomen pelvis is indicated. EKG will be obtained and she will be bolused normal saline 1 L intravenously. I will check her electrolytes and her CBC and a single troponin as she has been having problems with chest pain for greater than 6 hours. EKG was obtained and interpreted by myself independently as normal sinus rhythm at 66 bpm without ectopy or acute ST changes. No STEMI. I reviewed her laboratory work and she has a normal white count of 5.9, hemoglobin normal at 12.1, hematocrit 38.6, platelet count normal at 410. Her electrolyte panel is significant for chloride of 112 but is chronically elevated. Normal potassium of 3.6, sodium normal at 139. Glucose 86 with magnesium also normal at 2.2. AST is low at 12 which I think is nonspecific. Single troponin is less than 3. I do not feel she requires serial enzymes. I also feel she does not require any imaging today. Upon repeat examination she is resting comfortably. I feel she can be discharged to follow-up with her respiratory therapy director and [employer] solution architect. Disposition is discharged home in stable condition. History & Record Review Discussion w/independent historian: Patient Additional record(s) reviewed:: Prior ED visit and Prior labs Lab Data Attestation: I reviewed the patient's lab results. Labs: Laboratory Results - last 24 hr 05/07/23 20:20 WBC 5.9 RBC 4.96 Hgb 12.1 Hct 38.6 MCV 77.8 L MCH 24.4 L MCHC 31.3 L RDW Std Deviation 42.5 RDW Coeff of Anoop 15.1 H Plt Count 410 MPV 8.6 Immature Gran % (Auto) 0.300 Neut % (Auto) 55.3 Lymph % (Auto) 33.5 [place] % (Auto) 9.7 Eos % (Auto) 0.9 Baso % (Auto) 0.3 Absolute Neuts (auto) 3.2 Absolute Lymphs (auto) 1.96 Nucleated RBC % 0 Sodium 139 Potassium 3.6 Chloride 112 H Carbon Dioxide 22.0 Anion Gap 5 BUN 7 Creatinine 0.82 Estim Creat Clear Calc 107.85 Est GFR (MDRD) Af Amer 111 Est GFR (MDRD) Non-Af 92 BUN/Creatinine Ratio 8.5 L Glucose 86 Calcium 9.0 Magnesium 2.2 Total Bilirubin 0.20 AST 12 L ALT 17 Alkaline Phosphatase 93 Troponin I High Sens < 3 L Total Protein 7.2 Albumin 3.3 Globulin 3.9 Albumin/Globulin Ratio 0.8 L Discharge Plan Triage Chief Complaint: Abd Pain Other Complaint: Nausea/Vomiting/Diarrhea ED Provider: Ron Gray Dx/Rx/DC Orders Clinical Impression: Abdominal pain, Chest pain Instructions: ED Abdominal Pain Unkn Cause Fem, ED Chest Pain, Uncertain Cause Prescriptions: No Action topiramate 100 mg tablet 100 mg PO QHS Rx Instructions: give with 25 mg tablet to = 125 mg medroxyprogesterone [Depo-Provera] 150 mg/mL suspension 150 mg IM .q10w Patient Comments: INJECT 1ML INTRAMUSCULARILY EVERY 12 WEEKS aripiprazole 5 mg tablet 10 mg PO DAILY fluoxetine 40 mg capsule 40 mg PO QHS topiramate 25 mg tablet 25 mg PO DAILY Patient Comments: take 1 tablet by mouth at bedtime Rx Instructions: give with 100 mg tablet to = 125 mg epinephrine 0.3 mg/0.3 mL auto-injector 1 mg IM PRN PRN (Reason: Allergic Reaction) Patient Comments: INJECT INTO THE MUSCLE NEEDED FOR ANAPHYLAXIS REACTION albuterol sulfate 90 mcg/actuation HFA aerosol inhaler 2 puff INHALATION PRN PRN (Reason: Wheezing) Patient Comments: inhale 2 puffs by mouth and INTO THE LUNGS every 4 hours if neede... (REFER TO PRESCRIPTION NOTES). trazodone 50 mg tablet 50 mg PO QHS Patient Comments: TAKE 1 OR 2 TABLETS BY MOUTH AT BEDTIME prazosin 1 mg capsule 1 mg PO DAILY ondansetron 4 mg tablet,disintegrating 4 mg PO Q8H PRN PRN (Reason: Nausea) Qty: 10 0RF naproxen [Naprosyn] 500 mg tablet 500 mg PO BID PRN (Reason: pain) Qty: 20 0RF metoclopramide HCl [Reglan] 10 mg tablet 10 mg PO Q6H PRN (Reason: nausea and vomiting) Qty: 14 0RF ondansetron 4 mg tablet,disintegrating 4 mg PO Q8H PRN PRN (Reason: Nausea) Qty: 14 0RF hyoscyamine sulfate [Levsin] 0.125 mg tablet 0.125 mg PO Q6H PRN (Reason: pain) pantoprazole 40 mg tablet,delayed release (DR/EC) 40 mg PO BID Qty: 60 3RF carvedilol 12.5 mg tablet 12.5 mg PO BID Qty: 180 3RF Rx Instructions: must administer with a meal/food Primary Care Provider: Monica Patterson Referrals: Monica Patterson, PROMOTIONAL MODEL-C [Primary Care Provider] - As soon as possible Activity Restrictions/Additional Instructions: Follow-up with your [employer] solution architect and respiratory therapy director. Your electrolytes were normal today. Disposition Disposition: Home, Self Care
[2023-05-07 20:35] VITALS: BP 100/74; PULSE 65; RESP 19; O2SAT 100
[2023-05-07 20:41] LABS: Absolute Lymphocyte Count 1.96 X10^3/uL (0.83-4.51); Absolute Neutrophil Count 3.2 X10^3/uL (2.0-7.7); Basophil# 0.02 X10^3/uL; Basophil% 0.3 % (0-1); Eosinophil# 0.05 X10^3/uL; Eosinophils% 0.9 % (0-5); Hematocrit 38.6 % (37-47); Hemoglobin 12.1 g/dL (12.0-15.0); Lymphocyte # 1.96 X10^3/ul (0.83-4.51); Lymphocyte % 33.5 % (19-41); Mean Corp Hgb Conc 31.3 g/dL (32-36); Mean Corpuscular Hgb 24.4 pg (27.0-32.0); Mean Corpuscular Volume 77.8 fL (81-99); Mean Platelet Vol. 8.6 fl (6.2-12.0); Monocyte# 0.57 X10^3/uL; Monocyte% 9.7 % (0-10); NRBC Flagged by Analyzer 0 % (0-5); Neutrophil # 3.23 X10^3/uL (2.7-7.7); Neutrophil % 55.3 % (47-70); Platelet Count 410 K/mm3 (150-450); RBC Distribution Width CV 15.1 % (11.6-14.6); RBC Distribution Width SD 42.5 fl (35.1-43.9); Red Blood Count 4.96 M/mm3 (4.2-5.4); White Blood Count 5.9 K/mm3 (4.4-11.0)
[2023-05-07 20:59] LABS: ALB/GLOB Ratio 0.8 RATIO (0.9-2.4); AST(SGOT) 12 U/L (15-37); Alanine Aminotransfer ALT/SGPT 17 U/L (13-56); Albumin, Serum 3.3 g/dL (3.2-5.0); Alkaline Phosphatase 93 U/L (45-117); Anion Gap 5 (5-15); BUN 7 mg/dL (7-18); BUN/Creat Ratio 8.5 RATIO (10-20); Chloride 112 mmol/L (98-107); Creatinine, Serum 0.82 mg/dL (0.55-1.02); EST Glomerular Filtration Rate 92 mL/min (>60); Est Glom Filt Rate - Afr Amer 111 mL/min (>60); Estimated Creatinine Clearance 107.85 ml/min; Globulin 3.9 g/dL (2.2-4.2); Glucose 86 mg/dL (74-106); Magnesium 2.2 mg/dL (1.6-2.6); Potassium 3.6 mmol/L (3.5-5.1); Protein, Total 7.2 g/dL (6.4-8.2); Sodium Level 139 mmol/L (136-145); Troponin-I HS < 3 pg/mL (3.0-54.0)
[2023-05-07 22:11] VITALS: BP 98/61; PULSE 69; RESP 16; O2SAT 100
== END 2023-05-07 22:18 | disposition home or self-care (01) ==
PROVIDERS: Emergency Provider Emergency Medicine; PCP Nurse Practitioner Family; Visit Provider Emergency Medicine
DX: R07.9 Chest pain, unspecified (principal); F20.9 Schizophrenia, unspecified; E86.0 Dehydration; R10.9 Unspecified abdominal pain; F43.10 Post-traumatic stress disorder, unspecified; Z79.899 Other long term (current) drug therapy; K21.9 Gastro-esophageal reflux disease without esophagitis; F32.A Depression, unspecified; G43.909 Migraine, unspecified, not intractable, without status migrainosus; F17.290 Nicotine dependence, other tobacco product, uncomplicated
CPT/HCPCS: 80053; 83735; 84484; 85025; 93005; 96360; 96361; 99283; J7030; A4216

== ENCOUNTER 2023-05-11 15:42 | Emergency (ER) | payer MEDICAID, SELFPAY ==
[2023-05-11 15:43] VITALS: BP 130/67; PULSE 85; RESP 18; TEMP 36.3; O2SAT 100; BMI 29.0
--- NOTE | 2023-05-11 15:56 | EX.ED.DYSGE1 ---
HPI <TRINO Garcia - Last Filed: 05/11/23 18:20> History of Present Illness Chief Complaint: Abd Pain Narrative Narrative: 23-year-old female with PMH of chronic abdominal pain, gastroparesis presents with abdominal pain and diarrhea. She states she had a recent CT showing colitis and she followed up with [facility] and was positive for C. difficile. She has been on p.o. vancomycin for 5 days but today started having increased abdominal pain and cramping. She is having 6 episodes of diarrhea daily. She is able to keep down fluids but feels nauseous. PFSH <TRINO Garcia - Last Filed: 05/11/23 18:20> PFSH Medical History Anxiety Asthma Depression Diarrhea Endometriosis Gastroparesis GERD (gastroesophageal reflux disease) Migraine OCD (obsessive compulsive disorder) Pelvic pain POTS (postural orthostatic tachycardia syndrome) PTSD (post-traumatic stress disorder) Schizophrenia Smoker Tachycardia Upper abdominal pain Home Medications albuterol sulfate 90 mcg/actuation aerosol inhaler 2 puff inhalation PRN PRN Wheezing 06/14/21 [History Last Taken Unknown] epinephrine 0.3 mg/0.3 mL injection, auto-injector 1 mg IM PRN PRN Allergic Reaction 06/14/21 [History Last Taken Unknown] medroxyprogesterone 150 mg/mL intramuscular suspension (Depo-Provera) 150 mg IM .q10w 01/04/22 [History Last Taken Unknown] prazosin 1 mg capsule 1 mg PO DAILY PTSD 03/19/22 [History Last Taken Unknown] trazodone 50 mg tablet 50 mg PO QHS 03/19/22 [History Last Taken Unknown] ondansetron 4 mg disintegrating tablet 4 mg PO Q8H PRN PRN Nausea #10 tabs 09/07/22 [Rx Last Taken Unknown] pantoprazole 40 mg tablet,delayed release 40 mg PO BID #60 tabs 12/03/22 [Rx Last Taken Unknown] naproxen 500 mg tablet (Naprosyn) 500 mg PO BID PRN pain #20 tabs 12/18/22 [Rx Last Taken Unknown] aripiprazole 5 mg tablet 10 mg PO DAILY schizophrenia 01/16/23 [History Last Taken Unknown] fluoxetine 40 mg capsule 40 mg PO QHS depression 01/16/23 [History Last Taken Unknown] topiramate 100 mg tablet 100 mg PO QHS 01/16/23 [History Last Taken Unknown] topiramate 25 mg tablet 25 mg PO DAILY 01/16/23 [History Last Taken Unknown] carvedilol 12.5 mg tablet 12.5 mg PO BID #180 tabs 02/11/23 [Rx Last Taken Unknown] metoclopramide HCl 10 mg tablet (Reglan) 10 mg PO Q6H PRN nausea and vomiting #14 tabs 05/02/23 [Rx Last Taken Unknown] ondansetron 4 mg disintegrating tablet 4 mg PO Q8H PRN PRN Nausea #14 tabs 05/02/23 [Rx Last Taken Unknown] hyoscyamine sulfate 0.125 mg tablet (Levsin) 0.125 mg PO Q6H PRN pain 05/07/23 [History Last Taken Unknown] dicyclomine 20 mg tablet 20 mg PO TID 7 days #21 tabs 05/11/23 [Rx Last Taken Unknown] hydrocodone-acetaminophen 5-325mg 5mg-325mg 1 tab PO Q6H PRN PRN Pain 3 days #10 TABLETS 05/11/23 [Rx Last Taken Unknown] ondansetron 4 mg disintegrating tablet 4 mg PO Q6H #10 tabs 05/11/23 [Rx Last Taken Unknown] Allergy/AdvReac Type Severity Reaction Status Date / Time gabapentin Allergy Rash Verified 05/11/23 15:42 glycerin [From Nasal-Ease] Allergy Swelling Verified 05/11/23 15:42 methylcellulose Allergy Swelling Verified 05/11/23 15:42 [From Nasal-Ease] sertraline [From Zoloft] Allergy Anaphylaxis Verified 05/11/23 15:42 silicone Allergy Rash Verified 05/11/23 15:42 sodium chloride Allergy Swelling Verified 05/11/23 15:42 [From Nasal-Ease] zinc [From Nasal-Ease] Allergy Swelling Verified 05/11/23 15:42 lactose AdvReac Upset Verified 05/11/23 15:42 Stomach Family History Father Anxiety Depression Asthma Hypertension Mother Asthma Diabetes Anxiety Depression CAD (coronary artery disease) Myocardial infarction, Onset Age: 42 Brother Oleksandr-Danlos syndrome Grandmother Myocardial infarction, Onset Age: 41 Grandfather Myocardial infarction, Onset Age: 38 Surgical History History of colonoscopy History of esophagogastroduodenoscopy (EGD) Hx of laparoscopy Social History household members: none Smoking Status: Current every day smoker tobacco type: e-cigarettes alcohol intake: current alcohol intake frequency: holidays/special occasions only substance use type: does not use caffeine: Yes Type: carbonated beverages, coffee and tea ROS <TRINO Garcia - Last Filed: 05/11/23 18:20> ROS ED ROS Narrative Constitutional: Negative for fever, chills, malaise. CVS: Negative for chest pain. Respiratory: Negative for shortness of breath. GI: Positive for abdominal pain, nausea, diarrhea. Negative for vomiting, constipation, melena, hematochezia. : Negative for dysuria, hematuria or frequency. EXAM <TRINO Garcia - Last Filed: 05/11/23 18:20> Physical Exam Narrative Exam Narrative: CONST: Patient sitting in no acute distress. EYES: Normal inspection. ENT: Normal inspection, moist mucous membranes. NECK: Normal inspection. RESP: No respiratory distress, CTAB. CVS: Regular rate and rhythm, no murmur, no gallop. ABD: Soft and nontender, no guarding or rebound, nondistended. SKIN: Color normal, no rash, warm, dry, intact. EXTREMITIES: Normal appearance, no pedal edema. NEURO: Oriented x4. PSYCH: Normal affect. Const Vital Signs: 05/11/23 15:43 05/11/23 17:42 05/11/23 18:24 Temperature 97.3 F L 98.4 F Temperature Source Temporal Pulse Rate 85 70 79 Respiratory Rate 18 16 18 Blood Pressure 130/67 H 118/64 108/74 Blood Pressure Mean 88 82 85 Pulse Ox 100 98 99 Oxygen Delivery Method Room Air Room Air <Dr. Meet Altamirano DO - Last Filed: 05/11/23 18:30> Physical Exam Const Vital Signs: 05/11/23 15:43 05/11/23 17:42 05/11/23 18:24 Temperature 97.3 F L 98.4 F Temperature Source Temporal Pulse Rate 85 70 79 Respiratory Rate 18 16 18 Blood Pressure 130/67 H 118/64 108/74 Blood Pressure Mean 88 82 85 Pulse Ox 100 98 99 Oxygen Delivery Method Room Air Room Air [facility] <TRINO Garcia - Last Filed: 05/11/23 18:20> [facility] Narrative Medical decision making narrative: Patient is on day 5 of p.o. vancomycin for C. difficile and presents for abdominal pain and cramping and ongoing diarrhea. She appears well and nontoxic and afebrile with stable vital signs. She has no signs of dehydration. She has a soft, benign abdomen. CBC shows normal white count at 7.0. CMP is unremarkable. No evidence of electrolyte abnormality or ESE. She was treated with IV fluids, Zofran, and Bentyl. With normal labs and serial benign abdominal exams I do not think she needs repeat CT. I prescribed Bentyl for home, [employer] for breakthrough pain, and recommend she call her GI doctor for follow-up appointment. External records reviewed: CT abdomen/pelvis on 04/26/2023 showed descending colon colitis, CT abdomen/pelvis on 05/02/2023 showed no acute process. Lab Data Attestation: I reviewed the patient's lab results. Labs: Laboratory Results - last 24 hr 05/11/23 05/11/23 16:00 16:22 WBC 7.0 RBC 4.96 Hgb 12.2 Hct 38.2 MCV 77.0 L MCH 24.6 L MCHC 31.9 L RDW Std Deviation 41.4 RDW Coeff of Anoop 15.0 H Plt Count 392 MPV 8.6 Immature Gran % (Auto) 0.300 Neut % (Auto) 69.4 Lymph % (Auto) 20.6 Geary % (Auto) 8.7 Eos % (Auto) 0.9 Baso % (Auto) 0.1 Absolute Neuts (auto) 4.9 Absolute Lymphs (auto) 1.44 Nucleated RBC % 0 Sodium 137 Potassium 3.6 Chloride 113 H Carbon Dioxide 20.0 L Anion Gap 4 L BUN 9 Creatinine 0.90 Estim Creat Clear Calc 98.26 Est GFR (MDRD) Af Amer 101 Est GFR (MDRD) Non-Af 83 BUN/Creatinine Ratio 10.0 Glucose 101 Calcium 8.9 Total Bilirubin 0.20 AST 9 L ALT 16 Alkaline Phosphatase 98 Total Protein 7.1 Albumin 3.2 Globulin 3.9 Albumin/Globulin Ratio 0.8 L <Dr. Meet Altamirano, DO - Last Filed: 05/11/23 18:30> [facility] History & Record Review Discussion w/independent historian: Patient Additional record(s) reviewed:: Prior ED visit and Prior labs Lab Data Labs: Laboratory Results - last 24 hr 05/11/23 05/11/23 16:00 16:22 WBC 7.0 RBC 4.96 Hgb 12.2 Hct 38.2 MCV 77.0 L MCH 24.6 L MCHC 31.9 L RDW Std Deviation 41.4 RDW Coeff of Anoop 15.0 H Plt Count 392 MPV 8.6 Immature Gran % (Auto) 0.300 Neut % (Auto) 69.4 Lymph % (Auto) 20.6 Geary % (Auto) 8.7 Eos % (Auto) 0.9 Baso % (Auto) 0.1 Absolute Neuts (auto) 4.9 Absolute Lymphs (auto) 1.44 Nucleated RBC % 0 Sodium 137 Potassium 3.6 Chloride 113 H Carbon Dioxide 20.0 L Anion Gap 4 L BUN 9 Creatinine 0.90 Estim Creat Clear Calc 98.26 Est GFR (MDRD) Af Amer 101 Est GFR (MDRD) Non-Af 83 BUN/Creatinine Ratio 10.0 Glucose 101 Calcium 8.9 Total Bilirubin 0.20 AST 9 L ALT 16 Alkaline Phosphatase 98 Total Protein 7.1 Albumin 3.2 Globulin 3.9 Albumin/Globulin Ratio 0.8 L Treatment and Re-Evaluation :: I have personally performed a face to face assessment of the patient and have reviewed the ALANIS Note. I performed a substantive portion of the visit including all aspects of the following. My lawson findings include: History is patient diagnosed with colitis on CT towards the beginning of the month. Had a negative CT about 6 days later. She tested positive for C. difficile through gastroenterology through [facility]. She is on day 5 of oral vancomycin. She states she has had about 6 bowel movements today. No fevers. She feels like she is drinking enough fluids to stay hydrated. She is presenting with lower abdominal pain. Exam is soft nonsurgical abdomen with tenderness over the lower left abdomen. No rigidity. Normal bowel sounds. Appears well-hydrated. Walks normally down [address] [facility] Making patient with normal vital signs. Blood work shows CO2 of 20. She received a liter of IV fluids. As well as Bentyl for pain. Happy to prescribe her some pain medication and some Bentyl at home. She does not have follow-up arranged with gastroenterology I suggested that she get this already on the schedule so that she is not waiting too long to see them after she completes the vancomycin. Discharge Plan Triage Chief Complaint: Abd Pain ED Midlevel Provider: Dai Fonseca ED Provider: Meet Altamirano Dx/Rx/DC Orders Clinical Impression: C. difficile diarrhea, Abdominal pain Instructions: Abdominal Pain Prescriptions: New dicyclomine 20 mg tablet 20 mg PO TID 7 Days Qty: 21 0RF hydrocodone-acetaminophen 5-325 mg tablet 1 tab PO Q6H PRN PRN (Reason: Pain) 3 Days Qty: 10 0RF ondansetron 4 mg tablet,disintegrating 4 mg PO Q6H Qty: 10 0RF No Action topiramate 100 mg tablet 100 mg PO QHS Rx Instructions: give with 25 mg tablet to = 125 mg medroxyprogesterone [Depo-Provera] 150 mg/mL suspension 150 mg IM .q10w Patient Comments: INJECT 1ML INTRAMUSCULARILY EVERY 12 WEEKS aripiprazole 5 mg tablet 10 mg PO DAILY fluoxetine 40 mg capsule 40 mg PO QHS topiramate 25 mg tablet 25 mg PO DAILY Patient Comments: take 1 tablet by mouth at bedtime Rx Instructions: give with 100 mg tablet to = 125 mg epinephrine 0.3 mg/0.3 mL auto-injector 1 mg IM PRN PRN (Reason: Allergic Reaction) Patient Comments: INJECT INTO THE MUSCLE NEEDED FOR ANAPHYLAXIS REACTION albuterol sulfate 90 mcg/actuation HFA aerosol inhaler 2 puff INHALATION PRN PRN (Reason: Wheezing) Patient Comments: inhale 2 puffs by mouth and INTO THE LUNGS every 4 hours if neede... (REFER TO PRESCRIPTION NOTES). trazodone 50 mg tablet 50 mg PO QHS Patient Comments: TAKE 1 OR 2 TABLETS BY MOUTH AT BEDTIME prazosin 1 mg capsule 1 mg PO DAILY ondansetron 4 mg tablet,disintegrating 4 mg PO Q8H PRN PRN (Reason: Nausea) Qty: 10 0RF naproxen [Naprosyn] 500 mg tablet 500 mg PO BID PRN (Reason: pain) Qty: 20 0RF metoclopramide HCl [Reglan] 10 mg tablet 10 mg PO Q6H PRN (Reason: nausea and vomiting) Qty: 14 0RF ondansetron 4 mg tablet,disintegrating 4 mg PO Q8H PRN PRN (Reason: Nausea) Qty: 14 0RF hyoscyamine sulfate [Levsin] 0.125 mg tablet 0.125 mg PO Q6H PRN (Reason: pain) pantoprazole 40 mg tablet,delayed release (DR/EC) 40 mg PO BID Qty: 60 3RF carvedilol 12.5 mg tablet 12.5 mg PO BID Qty: 180 3RF Rx Instructions: must administer with a meal/food Primary Care Provider: Monica Patterson Referrals: Monica Patterson, [facility] [Primary Care Provider] - Activity Restrictions/Additional Instructions: Today your labs are within normal limits. I prescribed [employer] to use as needed for breakthrough pain and Bentyl which is for abdominal pain and spasming. Please call your GI doctor to schedule a follow-up appointment for C. difficile. Disposition Disposition: Home, Self Care Discharge Date/Time: 05/11/23 18:25
[2023-05-11 16:14] LABS: Absolute Lymphocyte Count 1.44 X10^3/uL (0.83-4.51); Absolute Neutrophil Count 4.9 X10^3/uL (2.0-7.7); Basophil# 0.01 X10^3/uL; Basophil% 0.1 % (0-1); Eosinophil# 0.06 X10^3/uL; Eosinophils% 0.9 % (0-5); Hematocrit 38.2 % (37-47); Hemoglobin 12.2 g/dL (12.0-15.0); Lymphocyte # 1.44 X10^3/ul (0.83-4.51); Lymphocyte % 20.6 % (19-41); Mean Corp Hgb Conc 31.9 g/dL (32-36); Mean Corpuscular Hgb 24.6 pg (27.0-32.0); Mean Platelet Vol. 8.6 fl (6.2-12.0); Monocyte# 0.61 X10^3/uL; Monocyte% 8.7 % (0-10); NRBC Flagged by Analyzer 0 % (0-5); Neutrophil # 4.85 X10^3/uL (2.7-7.7); Neutrophil % 69.4 % (47-70); Platelet Count 392 K/mm3 (150-450); RBC Distribution Width SD 41.4 fl (35.1-43.9); Red Blood Count 4.96 M/mm3 (4.2-5.4)
[2023-05-11] MEDS: Ondansetron 4 MG/2 ML Vial IV (16:23)
[2023-05-11] MEDS: Dicyclomine 20 MG/2 ML Vial IM (16:23)
[2023-05-11] MEDS: 0.9% Normal Saline (1000mL) 1,000 ML 999 ML IV (16:23)
[2023-05-11 16:50] LABS: ALB/GLOB Ratio 0.8 RATIO (0.9-2.4); AST(SGOT) 9 U/L (15-37); Alanine Aminotransfer ALT/SGPT 16 U/L (13-56); Albumin, Serum 3.2 g/dL (3.2-5.0); Alkaline Phosphatase 98 U/L (45-117); Anion Gap 4 (5-15); BUN 9 mg/dL (7-18); Calcium,Total 8.9 mg/dL (8.5-10.1); Chloride 113 mmol/L (98-107); EST Glomerular Filtration Rate 83 mL/min (>60); Est Glom Filt Rate - Afr Amer 101 mL/min (>60); Estimated Creatinine Clearance 98.26 ml/min; Globulin 3.9 g/dL (2.2-4.2); Glucose 101 mg/dL (74-106); Potassium 3.6 mmol/L (3.5-5.1); Protein, Total 7.1 g/dL (6.4-8.2); Sodium Level 137 mmol/L (136-145)
[2023-05-11 17:42] VITALS: BP 118/64; PULSE 70; RESP 16; O2SAT 98
[2023-05-11 18:24] VITALS: BP 108/74; PULSE 79; RESP 18; TEMP 36.9; O2SAT 99
== END 2023-05-11 18:25 | disposition home or self-care (01) ==
PROVIDERS: Physician Assistant; Emergency Provider Emergency Medicine; PCP Nurse Practitioner Family; Visit Provider Emergency Medicine
DX: R10.9 Unspecified abdominal pain (principal); F20.9 Schizophrenia, unspecified; A04.72 Enterocolitis due to Clostridium difficile, not specified as recurrent; F43.10 Post-traumatic stress disorder, unspecified; K21.9 Gastro-esophageal reflux disease without esophagitis; F32.A Depression, unspecified; G43.909 Migraine, unspecified, not intractable, without status migrainosus; F17.290 Nicotine dependence, other tobacco product, uncomplicated
CPT/HCPCS: 80053; 85025; 96361; 96372; 96374; 99283; J7030; A4216; J2405

== ENCOUNTER 2023-05-22 10:51 | Emergency (ER) | payer MEDICAID, SELFPAY ==
[2023-05-22 10:52] VITALS: BP 137/87; PULSE 61; RESP 16; TEMP 36.4; O2SAT 97; BMI 29.2
--- NOTE | 2023-05-22 11:14 | CT_ITS ---
STUDY: CT BRAIN WITHOUT CONTRAST REASON FOR EXAM: Female, 23 years old. Pain RADIATION DOSAGE (If Supplied By Facility): CTDIvol = ( 44.99 ) mGy, DLP = ( 779.24 ) mGycm TECHNIQUE: Transaxial CT imaging of the brain was performed without administration of intravenous contrast material. Individualized dose optimization techniques were used for this CT. COMPARISON: Comparison is made with prior study dated February 04, 2023. FINDINGS: Normal soft tissue structures. Normal calvarium. Normal size ventricles and extra-axial spaces for the patient''s age. Normal white matter tracts of the cerebral hemispheres. Normal basal ganglia and thalami. Normal brainstem. Normal cerebellum. There is no intracranial hemorrhage. There are no findings of an acute ischemic infarction. There is opacification of the left maxillary sinus. Partial opacification of the left ethmoid sinus. CT/Brain/Head without Contrast IMPRESSION: Opacification of the left maxillary sinus and partial opacification of the left ethmoid sinus. No intracranial abnormality is seen. Electronically Signed: Eugenio Weathers MD at 13:06 EST ,
[2023-05-22 11:36] LABS: Absolute Lymphocyte Count 1.76 X10^3/uL (0.83-4.51); Absolute Neutrophil Count 4.7 X10^3/uL (2.0-7.7); Basophil# 0.03 X10^3/uL; Basophil% 0.4 % (0-1); Eosinophil# 0.11 X10^3/uL; Eosinophils% 1.5 % (0-5); Hematocrit 39.7 % (37-47); Hemoglobin 12.7 g/dL (12.0-15.0); Lymphocyte # 1.76 X10^3/ul (0.83-4.51); Lymphocyte % 24.4 % (19-41); Mean Corpuscular Hgb 24.2 pg (27.0-32.0); Mean Corpuscular Volume 75.8 fL (81-99); Mean Platelet Vol. 8.4 fl (6.2-12.0); Monocyte# 0.57 X10^3/uL; Monocyte% 7.9 % (0-10); NRBC Flagged by Analyzer 0 % (0-5); Neutrophil # 4.71 X10^3/uL (2.7-7.7); Neutrophil % 65.5 % (47-70); Platelet Count 433 K/mm3 (150-450); RBC Distribution Width CV 14.9 % (11.6-14.6); RBC Distribution Width SD 40.8 fl (35.1-43.9); Red Blood Count 5.24 M/mm3 (4.2-5.4); White Blood Count 7.2 K/mm3 (4.4-11.0)
[2023-05-22] MEDS: 0.9% Normal Saline (1000mL) 1,000 ML 999 ML IV (11:44)
[2023-05-22 11:49] LABS: Anion Gap 4 (5-15); BUN 11 mg/dL (7-18); BUN/Creat Ratio 12.3 RATIO (10-20); Calcium,Total 9.1 mg/dL (8.5-10.1); Chloride 112 mmol/L (98-107); Creatinine, Serum 0.89 mg/dL (0.55-1.02); EST Glomerular Filtration Rate 84 mL/min (>60); Est Glom Filt Rate - Afr Amer 101 mL/min (>60); Estimated Creatinine Clearance 99.82 ml/min; Glucose 94 mg/dL (74-106); Potassium 3.7 mmol/L (3.5-5.1); Sodium Level 136 mmol/L (136-145)
[2023-05-22 11:50] LABS: Erythrocyte Sedimentation Rate 16 mm/hr (0-30)
[2023-05-22 12:34] LABS: Bacteria 0 SEEN /hpf (None Seen); Mucous, Urine 0 SEEN /hpf (<or=2+); Red Blood Cells-Urine 0 SEEN /hpf (0-5); Squamous Epithelial Cells - UA 0 SEEN /hpf (5-10); White Blood Cells 0 SEEN /hpf (0-5)
[2023-05-22 12:40] LABS: Color, Urine Yellow (Yellow); Glucose, Dipstick Normal (Normal); Ketone-Dipstick Negative (Negative); Leukocyte Esterase-Dipstick Negative /ul (Negative); Nitrite-Dipstick Negative (Negative); Occult Blood-Urine 150 /ul (Negative); Protein-Dipstick Negative (Negative); Urine Bilirubin Dipstick Negative (Negative); Urine Clarity Clear (Clear); Urine Urobilinogen Normal (Normal)
[2023-05-22 12:47] LABS: Internal QC Validated? YES +Cl - CLEAR BKGD; Pregnancy, Urine Negative Negative; Record Kit Lot#,Urine Preg 718086
[2023-05-22 12:52] LABS: Internal QC Validated? YES +Cl - CLEAR BKGD; Pregnancy, Serum, hCG Quali. NEGATIVE Negative
--- NOTE | 2023-05-22 13:28 | EX.ED.DYSGE1 ---
HPI <Lisa De La Paz RN - Last Filed: 05/22/23 13:46> History of Present Illness Chief Complaint: Headache Informant: patient Onset/Context/Timing Onset: Weeks (1-2) Timing: Continuous Current Severity: 5/10 Maximum Severity: 8/10 Worsened by: Activity Relieved by: Mildly relieved with Tylenol Associated Symptoms Associated Symptoms: Blurred vision, chills, chest pressure, shortness of breath, brain fog Narrative Narrative: Patient referred by PCP to the ED with complaints of right-sided headache for 1 to 2 weeks described as a pressure. Reports this is not her usual migraine. Patient also reports blurred vision for same time. Reports chills no fever. Patient also complains of shortness of breath x 2 to 3 days. Cough beginning yesterday. Chest pressure on the left side beginning today. Patient also reports brain fog in which she does not remember going to bed. Patient has chronic nausea. Decreased p.o. intake and decreased appetite. Patient also has diarrhea beginning 04/25/2023 in which she was diagnosed and treated for C. difficile. Patient completed treatment 05/17/2023. Had a repeat C. difficile test on 05/20/2023 which is reported by patient is negative. Prior similar symptoms: No Recent Illness/Hospitalization: No PFSH <Lisa De La Paz RN - Last Filed: 05/22/23 13:46> PFSH Medical History Anxiety Asthma Depression Diarrhea Endometriosis Gastroparesis GERD (gastroesophageal reflux disease) Migraine OCD (obsessive compulsive disorder) Pelvic pain POTS (postural orthostatic tachycardia syndrome) PTSD (post-traumatic stress disorder) Schizophrenia Smoker Tachycardia Upper abdominal pain Home Medications albuterol sulfate 90 mcg/actuation aerosol inhaler 2 puff inhalation PRN PRN Wheezing 06/14/21 [History Last Taken Unknown] epinephrine 0.3 mg/0.3 mL injection, auto-injector 1 mg IM PRN PRN Allergic Reaction 06/14/21 [History Last Taken Unknown] medroxyprogesterone 150 mg/mL intramuscular suspension (Depo-Provera) 150 mg IM .q10w 01/04/22 [History Last Taken Unknown] prazosin 1 mg capsule 1 mg PO DAILY PTSD 03/19/22 [History Last Taken Unknown] trazodone 50 mg tablet 50 mg PO QHS 03/19/22 [History Last Taken Unknown] ondansetron 4 mg disintegrating tablet 4 mg PO Q8H PRN PRN Nausea #10 tabs 09/07/22 [Rx Last Taken Unknown] pantoprazole 40 mg tablet,delayed release 40 mg PO BID #60 tabs 12/03/22 [Rx Last Taken Unknown] naproxen 500 mg tablet (Naprosyn) 500 mg PO BID PRN pain #20 tabs 12/18/22 [Rx Last Taken Unknown] aripiprazole 5 mg tablet 10 mg PO DAILY schizophrenia 01/16/23 [History Last Taken Unknown] fluoxetine 40 mg capsule 40 mg PO QHS depression 01/16/23 [History Last Taken Unknown] topiramate 100 mg tablet 100 mg PO QHS 01/16/23 [History Last Taken Unknown] topiramate 25 mg tablet 25 mg PO DAILY 01/16/23 [History Last Taken Unknown] carvedilol 12.5 mg tablet 12.5 mg PO BID #180 tabs 02/11/23 [Rx Last Taken Unknown] metoclopramide HCl 10 mg tablet (Reglan) 10 mg PO Q6H PRN nausea and vomiting #14 tabs 05/02/23 [Rx Last Taken Unknown] ondansetron 4 mg disintegrating tablet 4 mg PO Q8H PRN PRN Nausea #14 tabs 05/02/23 [Rx Last Taken Unknown] hyoscyamine sulfate 0.125 mg tablet (Levsin) 0.125 mg PO Q6H PRN pain 05/07/23 [History Last Taken Unknown] dicyclomine 20 mg tablet 20 mg PO TID 7 days #21 tabs 05/11/23 [Rx Last Taken Unknown] hydrocodone-acetaminophen 5-325mg 5mg-325mg 1 tab PO Q6H PRN PRN Pain 3 days #10 TABLETS 05/11/23 [Rx Last Taken Unknown] ondansetron 4 mg disintegrating tablet 4 mg PO Q6H #10 tabs 05/11/23 [Rx Last Taken Unknown] amoxicillin 875 mg-potassium clavulanate 125 mg tablet 875 mg (0.875 x 875-125 mg) PO Q12H #20 TABLETS 05/22/23 [Rx Last Taken Unknown] Allergy/AdvReac Type Severity Reaction Status Date / Time gabapentin Allergy Rash Verified 05/22/23 10:52 glycerin [From Nasal-Ease] Allergy Swelling Verified 05/22/23 10:52 methylcellulose Allergy Swelling Verified 05/22/23 10:52 [From Nasal-Ease] sertraline [From Zoloft] Allergy Anaphylaxis Verified 05/22/23 10:52 silicone Allergy Rash Verified 05/22/23 10:52 sodium chloride Allergy Swelling Verified 05/22/23 10:52 [From Nasal-Ease] zinc [From Nasal-Ease] Allergy Swelling Verified 05/22/23 10:52 lactose AdvReac Upset Verified 05/22/23 10:52 Stomach Family History Father Anxiety Depression Asthma Hypertension Mother Asthma Diabetes Anxiety Depression CAD (coronary artery disease) Myocardial infarction, Onset Age: 42 Brother Oleksandr-Danlos syndrome Grandmother Myocardial infarction, Onset Age: 41 Grandfather Myocardial infarction, Onset Age: 38 Surgical History History of colonoscopy History of esophagogastroduodenoscopy (EGD) Hx of laparoscopy Social History household members: none Smoking Status: Current every day smoker tobacco type: e-cigarettes alcohol intake: current alcohol intake frequency: holidays/special occasions only substance use type: does not use caffeine: Yes Type: carbonated beverages, coffee and tea ROS <Lisa De La Paz RN - Last Filed: 05/22/23 13:46> ROS ED Constitutional Constitutional ED: Reports chills; Denies fever(s) Eyes Eyes: Reports blurry vision bilateral ENT ENT ED: Reports other Details: Postnasal drip x 1 to 2 months causing intermittent sore throat postnasal drip x 1 to 2 months causing intermittent sore throat. ; Denies ear pain Cardiovascular Cardiovascular: Reports chest pain; Denies palpitations Respiratory/Chest Respiratory/Chest: Reports cough and dyspnea Gastrointestinal Gastrointestinal: Reports diarrhea and nausea; Denies abdominal pain or vomiting Genitourinary Genitourinary ED: Denies dysuria, hematuria or urinary frequency Musculoskeletal Musculoskeletal: Reports arthralgias and myalgias Integumentary Denies rash Neurologic Neurologic: Reports headache(s); Denies weakness EXAM <Lisa De La Paz RN - Last Filed: 05/22/23 13:46> Physical Exam Const Vital Signs: 05/22/23 10:52 Temperature 97.6 F L Temperature Source Temporal Pulse Rate 61 Respiratory Rate 16 Blood Pressure 137/87 H Blood Pressure Mean 103 Pulse Ox 97 Oxygen Delivery Method Room Air Positive well nourished and well developed General Appearance ED: well developed and NAD HEENT Reports moist mucous membranes HEENT Narrative: Lateral nystagmus bilaterally Eyes PERRL Neck no lymphadenopathy Chest Wall inspection of chest normal and palpation of chest normal Resp normal respiratory effort and clear to auscultation bilaterally Cardio regular rate, regular rhythm, S1 normal heart sound and S2 normal heart sound GI normal to inspection, nondistended, normoactive bowel sounds, non-tender and no masses Palpation: soft Extremity normal to inspection Neuro oriented x3 Sensorium / Orientation: alert Psych mental status grossly normal Skin no rashes or lesions noted <Dr. Fabrice Em MD - Last Filed: 05/22/23 13:59> Physical Exam Const Vital Signs: 05/22/23 10:52 Temperature 97.6 F L Temperature Source Temporal Pulse Rate 61 Respiratory Rate 16 Blood Pressure 137/87 H Blood Pressure Mean 103 Pulse Ox 97 Oxygen Delivery Method Room Air MDM <Lisa De La Paz RN - Last Filed: 05/22/23 13:46> [facility] Lab Data Labs: Laboratory Results - last 24 hr 05/22/23 05/22/23 11:25 12:30 WBC 7.2 RBC 5.24 Hgb 12.7 Hct 39.7 MCV 75.8 L MCH 24.2 L MCHC 32.0 RDW Std Deviation 40.8 RDW Coeff of Anoop 14.9 H Plt Count 433 MPV 8.4 Immature Gran % (Auto) 0.300 Neut % (Auto) 65.5 Lymph % (Auto) 24.4 [place] % (Auto) 7.9 Eos % (Auto) 1.5 Baso % (Auto) 0.4 Absolute Neuts (auto) 4.7 Absolute Lymphs (auto) 1.76 Nucleated RBC % 0 ESR 16 Sodium 136 Potassium 3.7 Chloride 112 H Carbon Dioxide 20.0 L Anion Gap 4 L BUN 11 Creatinine 0.89 Estim Creat Clear Calc 99.82 Est GFR (MDRD) Af Amer 101 Est GFR (MDRD) Non-Af 84 BUN/Creatinine Ratio 12.3 Glucose 94 Calcium 9.1 Serum , Qual NEGATIVE Urine Color Yellow Urine Clarity Clear Urine pH 7.0 Ur Specific [place] 1.010 Urine Protein Negative Urine Glucose (UA) Normal Urine Ketones Negative Urine Occult Blood 150 H Urine Nitrite Negative Urine Bilirubin Negative Urine Urobilinogen Normal Ur Leukocyte Esterase Negative Urine RBC 0 SEEN Urine WBC 0 SEEN Ur Squamous Epith Cells 0 SEEN Urine Bacteria 0 SEEN Urine Mucus 0 SEEN Urine Test Negative Radiography Diagnostic Testing: Clinical Impression(s) from Imaging Studies Brain CT 05/22/23 11:14 IMPRESSION: Opacification of the left maxillary sinus and partial opacification of the left ethmoid sinus. No intracranial abnormality is seen. Electronically Signed: Eugenio Weathers MD at 13:06 EST , Management Discussion w/another healthcare provider: Other (Dr. Em, ED Provider) Treatment and Re-Evaluation :: CBC showed a normal white blood cell count of 7.2, normal hemoglobin at 12.7. Chemistries were unremarkable except for a slightly elevated chloride of 112. Serum was negative. Urinalysis is significant for hematuria. Patient reports she is currently on her menses. CT scan is indicative of a left-sided sinusitis. Patient received 1 L normal saline with slight improvement of symptoms. Patient will be prescribed Augmentin and discharged home. Plan discussed with patient and patient agreeable. <Dr. Fabrice Em MD - Last Filed: 05/22/23 13:59> [facility] Narrative Medical decision making narrative: I have personally performed a face to face assessment of the patient and have reviewed the ALANIS Note. I performed a substantive portion of the visit including all aspects of the following. My lawson findings include: History is remarkable for magnitude of complaints. She complains of left-sided headache, nasal congestion, sore throat, body aches, slight cough. Patient reports decreased appetite over the past couple of weeks. She reports urinary symptoms. She denies gynecologic symptoms. Denies rash. She denies joint swelling. Denies myalgias or arthralgias. Exam is remarkable for depressed affect. Head is atraumatic normocephalic. Ears normal. TMs normal. Nares patent with slight discharge. She complains of tenderness over her right and left maxillary sinus. Pupils equal round reactive. Extraocular is intact. Sclera is anicteric. There is no papilledema. Cup-to-disc ratio is normal. She does have nystagmus with lateral gaze bilaterally. This was not mentioned on prior reports. Trachea is midline. Neck is supple. There is no lymphadenopathy. Heart is regular. Rate is normal. There is no murmur, gallop or rub. Lungs are clear to auscultation. Breath sounds are symmetric. Abdomen is soft nontender. Alert oriented x 3. Motor 5/5. Sensation intact. No dysmetria. DTRs symmetric bicep, brachialis, tricep, patella and ankle, 2+. There is no clonus or Babinski sign noted. Medical Decision Making patient's constellation of symptoms we will continue CAT scan to evaluate for possible sinusitis and potentially sphenoid sinusitis. Will obtain blood work to assess white count differential H&H to assess for infectious cause as well as anemia. She does have history of anemia. She also has history of sinus infection. Will obtain test with her hat reporting increased urination. Electrolytes were obtained to assess renal function as well as potassium and sodium. Other additions or changes: CT of the head without contrast reveals left maxillary sinus situs per my read. Awaiting formal read by radiologist. Plan is to treat with Augmentin. Lab Data Attestation: I reviewed the patient's lab results. Lab results narrative: CBC is unremarkable. BMP is remarkable for CO2 of 20 with a normal anion gap. Glucose is normal. Serum test was negative. Urinalysis was negative. Labs: Laboratory Results - last 24 hr 05/22/23 05/22/23 11:25 12:30 WBC 7.2 RBC 5.24 Hgb 12.7 Hct 39.7 MCV 75.8 L MCH 24.2 L MCHC 32.0 RDW Std Deviation 40.8 RDW Coeff of Anoop 14.9 H Plt Count 433 MPV 8.4 Immature Gran % (Auto) 0.300 Neut % (Auto) 65.5 Lymph % (Auto) 24.4 [place] % (Auto) 7.9 Eos % (Auto) 1.5 Baso % (Auto) 0.4 Absolute Neuts (auto) 4.7 Absolute Lymphs (auto) 1.76 Nucleated RBC % 0 ESR 16 Sodium 136 Potassium 3.7 Chloride 112 H Carbon Dioxide 20.0 L Anion Gap 4 L BUN 11 Creatinine 0.89 Estim Creat Clear Calc 99.82 Est GFR (MDRD) Af Amer 101 Est GFR (MDRD) Non-Af 84 BUN/Creatinine Ratio 12.3 Glucose 94 Calcium 9.1 Serum , Qual NEGATIVE Urine Color Yellow Urine Clarity Clear Urine pH 7.0 Ur Specific [place] 1.010 Urine Protein Negative Urine Glucose (UA) Normal Urine Ketones Negative Urine Occult Blood 150 H Urine Nitrite Negative Urine Bilirubin Negative Urine Urobilinogen Normal Ur Leukocyte Esterase Negative Urine RBC 0 SEEN Urine WBC 0 SEEN Ur Squamous Epith Cells 0 SEEN Urine Bacteria 0 SEEN Urine Mucus 0 SEEN Urine Test Negative Radiography Diagnostic Testing: Clinical Impression(s) from Imaging Studies Brain CT 05/22/23 11:14 IMPRESSION: Opacification of the left maxillary sinus and partial opacification of the left ethmoid sinus. No intracranial abnormality is seen. Electronically Signed: Eugenio Weathers MD at 13:06 EST , Discharge Plan Triage Chief Complaint: Headache ED Provider: Fabrice Em Dx/Rx/DC Orders Clinical Impression: Sinusitis, acute, BP (high blood pressure), Bipolar disorder, Nausea, Acute headache Instructions: ED Sinusitis (Antibiotic Treatment) Prescriptions: New amoxicillin-pot clavulanate [amoxicillin-pot clavulanate] 875-125 mg tablet 875 mg PO Q12H Qty: 20 0RF No Action topiramate 100 mg tablet 100 mg PO QHS Rx Instructions: give with 25 mg tablet to = 125 mg medroxyprogesterone [Depo-Provera] 150 mg/mL suspension 150 mg IM .q10w Patient Comments: INJECT 1ML INTRAMUSCULARILY EVERY 12 WEEKS aripiprazole 5 mg tablet 10 mg PO DAILY fluoxetine 40 mg capsule 40 mg PO QHS topiramate 25 mg tablet 25 mg PO DAILY Patient Comments: take 1 tablet by mouth at bedtime Rx Instructions: give with 100 mg tablet to = 125 mg epinephrine 0.3 mg/0.3 mL auto-injector 1 mg IM PRN PRN (Reason: Allergic Reaction) Patient Comments: INJECT INTO THE MUSCLE NEEDED FOR ANAPHYLAXIS REACTION albuterol sulfate 90 mcg/actuation HFA aerosol inhaler 2 puff INHALATION PRN PRN (Reason: Wheezing) Patient Comments: inhale 2 puffs by mouth and INTO THE LUNGS every 4 hours if neede... (REFER TO PRESCRIPTION NOTES). trazodone 50 mg tablet 50 mg PO QHS Patient Comments: TAKE 1 OR 2 TABLETS BY MOUTH AT BEDTIME prazosin 1 mg capsule 1 mg PO DAILY ondansetron 4 mg tablet,disintegrating 4 mg PO Q8H PRN PRN (Reason: Nausea) Qty: 10 0RF naproxen [Naprosyn] 500 mg tablet 500 mg PO BID PRN (Reason: pain) Qty: 20 0RF metoclopramide HCl [Reglan] 10 mg tablet 10 mg PO Q6H PRN (Reason: nausea and vomiting) Qty: 14 0RF ondansetron 4 mg tablet,disintegrating 4 mg PO Q8H PRN PRN (Reason: Nausea) Qty: 14 0RF hyoscyamine sulfate [Levsin] 0.125 mg tablet 0.125 mg PO Q6H PRN (Reason: pain) dicyclomine 20 mg tablet 20 mg PO TID 7 Days Qty: 21 0RF hydrocodone-acetaminophen 5-325 mg tablet 1 tab PO Q6H PRN PRN (Reason: Pain) 3 Days Qty: 10 0RF ondansetron 4 mg tablet,disintegrating 4 mg PO Q6H Qty: 10 0RF pantoprazole 40 mg tablet,delayed release (DR/EC) 40 mg PO BID Qty: 60 3RF carvedilol 12.5 mg tablet 12.5 mg PO BID Qty: 180 3RF Rx Instructions: must administer with a meal/food Primary Care Provider: Monica Patterson Referrals: Monica Patterson, [employer] [Primary Care Provider] - Activity Restrictions/Additional Instructions: Continue to drink a lot of fluid. May use Tylenol 500 mg 3 times a day or ibuprofen 400 mg 3 times a day for headache. Follow-up with primary care provider in 2 weeks or earlier if needed. Disposition Disposition: Home, Self Care
== END 2023-05-22 14:12 | disposition home or self-care (01) ==
PROVIDERS: Emergency Provider Emergency Medicine; PCP Nurse Practitioner Family; Visit Provider Emergency Medicine
DX: R51.9 Headache, unspecified (principal); F20.9 Schizophrenia, unspecified; F31.9 Bipolar disorder, unspecified; J01.90 Acute sinusitis, unspecified; R11.0 Nausea; I10 Essential (primary) hypertension; Z79.899 Other long term (current) drug therapy; K21.9 Gastro-esophageal reflux disease without esophagitis; F17.290 Nicotine dependence, other tobacco product, uncomplicated
CPT/HCPCS: 70450; 80048; 81001; 81025; 84703; 85025; 85652; 96360; 96361; 99283; J7030; A4216

== ENCOUNTER 2023-06-05 19:21 | Emergency (ER) | payer MEDICAID, SELFPAY ==
[2023-06-05 19:21] VITALS: BP 126/87; PULSE 102; RESP 16; TEMP 35.9; O2SAT 100; BMI 29.1
[2023-06-05 21:02] LABS: Absolute Neutrophil Count 4.4 X10^3/uL (2.0-7.7); Basophil# 0.03 X10^3/uL; Basophil% 0.4 % (0-1); Eosinophil# 0.07 X10^3/uL; Hematocrit 44.3 % (37-47); Hemoglobin 13.6 g/dL (12.0-15.0); Lymphocyte % 30.1 % (19-41); Mean Corp Hgb Conc 30.7 g/dL (32-36); Mean Corpuscular Volume 78.1 fL (81-99); Mean Platelet Vol. 8.5 fl (6.2-12.0); Monocyte# 0.37 X10^3/uL; Monocyte% 5.3 % (0-10); NRBC Flagged by Analyzer 0 % (0-5); Neutrophil % 63.1 % (47-70); Platelet Count 444 K/mm3 (150-450); RBC Distribution Width CV 14.2 % (11.6-14.6); RBC Distribution Width SD 39.8 fl (35.1-43.9); Red Blood Count 5.67 M/mm3 (4.2-5.4)
[2023-06-05 21:09] LABS: Color, Urine Yellow (Yellow); Glucose, Dipstick Normal (Normal); Ketone-Dipstick Negative (Negative); Leukocyte Esterase-Dipstick Negative /ul (Negative); Nitrite-Dipstick Negative (Negative); Occult Blood-Urine Negative /ul (Negative); Protein-Dipstick Negative (Negative); Specific Gravity, Urine 1.005 (1.002-1.030); Urine Bilirubin Dipstick Negative (Negative); Urine Clarity Clear (Clear); Urine Urobilinogen Normal (Normal)
[2023-06-05 21:14] LABS: Internal QC Validated? YES +Cl - CLEAR BKGD; Pregnancy, Serum, hCG Quali. NEGATIVE Negative
--- NOTE | 2023-06-05 21:14 | CT_ITS ---
STUDY: CT ABDOMEN AND PELVIS WITH CONTRAST REASON FOR EXAM: Female, 23 years old. abdominal pain RADIATION DOSAGE (If Supplied By Facility): CTDIvol = ( 13.80 ) mGy, DLP = ( 570.29 ) mGycm TECHNIQUE: Transaxial images were obtained from the dome of the diaphragm to the symphysis pubis without oral contrast. IV 100mL Isovue-370 was administered. Sagittal and coronal images were reconstructed. Individualized dose optimization techniques were used for this CT. COMPARISON: None. FINDINGS: The visualized lung bases are unremarkable. The visualized portions of the heart are within normal limits. Normal liver. The gallbladder is contracted. Normal spleen. Normal pancreas. Normal bilateral adrenal glands. Normal right kidney. Normal left kidney. Normal visualized stomach. Normal small intestine. The descending colon is decompressed with mild thickening of the wall, cannot exclude mild descending colitis. The appendix measures 6.6 mm with no surrounding inflammation to suggest appendicitis. Mild fullness of some of the mesenteric lymph nodes most compatible with nonspecific inflammatory response. Normal abdominal aorta. Normal inferior vena cava. Normal retroperitoneum. Incompletely distended urinary bladder wall measuring 5 mm, cannot exclude mild cystitis. Antegrade uterus. Normal abdominal wall. Normal osseous structures. CT/Abdomen/Pelvis W IV Cont ONLY IMPRESSION: Possible mild cystitis, correlation with urinalysis recommended. Decompression of the descending colon with underlying colitis difficult to be excluded, correlation with history of diarrheal state recommended. No acute appendicitis or bowel obstruction. Electronically Signed: Goldie Toribio MD at 21:54 EST ,
[2023-06-05] MEDS: 0.9% Normal Saline (1000mL) 1,000 ML 999 ML IV (21:15)
--- NOTE | 2023-06-05 21:19 | ED.VIS.GI ---
HPI HPI - GI History of Present Illness Chief Complaint: GI Bleed Narrative Narrative: 23-year-old female with chronic pelvic pain, chronic abdominal pain, gastroparesis, GERD presenting with abdominal pain. She states she did not notice the abdominal pain until she went to the bathroom earlier and had blood on her stool. She states she saw blood in the toilet. Patient is not lightheaded or dizzy. Patient has mild nausea which is chronic. She does admit that her abdominal pain is also chronic. Patient has not had a fever. She states she might have chills. She states she has had exploratory laparotomy for history of endometriosis. She states she has had upper and lower endoscopy by Dr. Hdz from GI. Patient states there were no significant findings. Patient reports she does have a history of C. difficile. She states he is not having diarrhea today. She has not been on recent antibiotics. [facility] Medical History Anxiety Asthma Depression Diarrhea Endometriosis Gastroparesis GERD (gastroesophageal reflux disease) Migraine OCD (obsessive compulsive disorder) Pelvic pain POTS (postural orthostatic tachycardia syndrome) PTSD (post-traumatic stress disorder) Schizophrenia Smoker Tachycardia Upper abdominal pain Home Medications albuterol sulfate 90 mcg/actuation aerosol inhaler 2 puff inhalation PRN PRN Wheezing 06/14/21 [History Last Taken Unknown] epinephrine 0.3 mg/0.3 mL injection, auto-injector 1 mg IM PRN PRN Allergic Reaction 06/14/21 [History Last Taken Unknown] medroxyprogesterone 150 mg/mL intramuscular suspension (Depo-Provera) 150 mg IM .q10w 01/04/22 [History Last Taken Unknown] prazosin 1 mg capsule 1 mg PO DAILY PTSD 03/19/22 [History Last Taken Unknown] trazodone 50 mg tablet 50 mg PO QHS 03/19/22 [History Last Taken Unknown] ondansetron 4 mg disintegrating tablet 4 mg PO Q8H PRN PRN Nausea #10 tabs 09/07/22 [Rx Last Taken Unknown] pantoprazole 40 mg tablet,delayed release 40 mg PO BID #60 tabs 12/03/22 [Rx Last Taken Unknown] naproxen 500 mg tablet (Naprosyn) 500 mg PO BID PRN pain #20 tabs 12/18/22 [Rx Last Taken Unknown] aripiprazole 5 mg tablet 10 mg PO DAILY schizophrenia 01/16/23 [History Last Taken Unknown] fluoxetine 40 mg capsule 40 mg PO QHS depression 01/16/23 [History Last Taken Unknown] topiramate 100 mg tablet 100 mg PO QHS 01/16/23 [History Last Taken Unknown] topiramate 25 mg tablet 25 mg PO DAILY 01/16/23 [History Last Taken Unknown] carvedilol 12.5 mg tablet 12.5 mg PO BID #180 tabs 02/11/23 [Rx Last Taken Unknown] metoclopramide HCl 10 mg tablet (Reglan) 10 mg PO Q6H PRN nausea and vomiting #14 tabs 05/02/23 [Rx Last Taken Unknown] ondansetron 4 mg disintegrating tablet 4 mg PO Q8H PRN PRN Nausea #14 tabs 05/02/23 [Rx Last Taken Unknown] hyoscyamine sulfate 0.125 mg tablet (Levsin) 0.125 mg PO Q6H PRN pain 05/07/23 [History Last Taken Unknown] dicyclomine 20 mg tablet 20 mg PO TID 7 days #21 tabs 05/11/23 [Rx Last Taken Unknown] hydrocodone-acetaminophen 5-325mg 5mg-325mg 1 tab PO Q6H PRN PRN Pain 3 days #10 TABLETS 05/11/23 [Rx Last Taken Unknown] ondansetron 4 mg disintegrating tablet 4 mg PO Q6H #10 tabs 05/11/23 [Rx Last Taken Unknown] amoxicillin 875 mg-potassium clavulanate 125 mg tablet 875 mg (0.875 x 875-125 mg) PO Q12H #20 TABLETS 05/22/23 [Rx Last Taken Unknown] amoxicillin 875 mg-potassium clavulanate 125 mg tablet 1 tab PO BID #20 tabs 06/05/23 [Rx Last Taken Unknown] Allergy/AdvReac Type Severity Reaction Status Date / Time gabapentin Allergy Rash Verified 05/22/23 10:52 glycerin [From Nasal-Ease] Allergy Swelling Verified 05/22/23 10:52 methylcellulose Allergy Swelling Verified 05/22/23 10:52 [From Nasal-Ease] sertraline [From Zoloft] Allergy Anaphylaxis Verified 05/22/23 10:52 silicone Allergy Rash Verified 05/22/23 10:52 sodium chloride Allergy Swelling Verified 05/22/23 10:52 [From Nasal-Ease] zinc [From Nasal-Ease] Allergy Swelling Verified 05/22/23 10:52 lactose AdvReac Upset Verified 05/22/23 10:52 Stomach Family History Father Anxiety Depression Asthma Hypertension Mother Asthma Diabetes Anxiety Depression CAD (coronary artery disease) Myocardial infarction, Onset Age: 42 Brother Oleksandr-Danlos syndrome Grandmother Myocardial infarction, Onset Age: 41 Grandfather Myocardial infarction, Onset Age: 38 Surgical History History of colonoscopy History of esophagogastroduodenoscopy (EGD) Hx of laparoscopy Social History household members: none Smoking Status: Current every day smoker tobacco type: e-cigarettes alcohol intake: current alcohol intake frequency: holidays/special occasions only substance use type: does not use caffeine: Yes Type: carbonated beverages, coffee and tea EXAM Physical Exam Const Vital Signs: 06/05/23 19:21 06/05/23 22:20 Temperature 96.7 F L 97.5 F L Temperature Source Temporal Pulse Rate 102 H 71 Respiratory Rate 16 16 Blood Pressure 126/87 H 130/88 H Blood Pressure Mean 100 102 Pulse Ox 100 98 Oxygen Delivery Method Room Air Positive well nourished General Appearance ED: NAD; Negative for pallor HEENT Reports moist mucous membranes normocephalic and atraumatic Eyes PERRL and EOMs intact bilaterally Resp normal respiratory effort Auscultation: Negative for rales, rhonchi or wheezes Cardio regular rate and regular rhythm GI GI Narrative: Diffusely tender mildly. No rebound or guarding. Neuro CN's II-XII intact bilaterally Sensorium / Orientation: alert Psych mental status grossly normal Skin General Skin Exam: Negative for jaundice or pallor MDM MDM MDM Narrative Medical decision making narrative: Patient presenting with abdominal pain. Differential includes colitis, diverticulitis, GI bleed, dehydration, anemia, electro electrolyte, chronic pain, pancreatitis, UTI, pyelonephritis patient medicated with Toradol and Zofran. She is given IV fluids. CBC will be obtained to assess white blood cell count, hemoglobin, platelets. CMP to assess liver function, renal function, electrolytes. Urinalysis to assess for UTI hCG to assess for . CBC shows normal white blood cell count of 7.0. Hemoglobin 13.6. Platelets 444. Renal function electrolytes within normal limits. LFTs are unremarkable. Lipase negative. hCG negative. Urinalysis negative for infection. Patient treated with Toradol and Zofran and improved on examination. Shared CT of the ab pelvis shows some concern for mild colitis. Given her blood in her stool I will treat her. Looks like last time she was treated with Augmentin had relief. I discussed this with her and she is comfortable with this plan. She will be discharged home with a prescription for Augmentin. Impression: 1. Colitis 2. Stable lower GI bleed Lab Data Attestation: I reviewed the patient's lab results. Labs: Laboratory Results - last 24 hr 06/05/23 20:53 WBC 7.0 RBC 5.67 H Hgb 13.6 Hct 44.3 MCV 78.1 L MCH 24.0 L MCHC 30.7 L RDW Std Deviation 39.8 RDW Coeff of Anoop 14.2 Plt Count 444 MPV 8.5 Immature Gran % (Auto) 0.100 Neut % (Auto) 63.1 Lymph % (Auto) 30.1 Vance % (Auto) 5.3 Eos % (Auto) 1.0 Baso % (Auto) 0.4 Absolute Neuts (auto) 4.4 Absolute Lymphs (auto) 2.10 Nucleated RBC % 0 Sodium 137 Potassium 3.5 Chloride 108 H Carbon Dioxide 23.0 Anion Gap 6 BUN 8 Creatinine 0.84 Estim Creat Clear Calc 105.52 Est GFR (MDRD) Af Amer 108 Est GFR (MDRD) Non-Af 90 BUN/Creatinine Ratio 9.5 L Glucose 95 Calcium 10.0 Total Bilirubin 0.20 AST 12 L ALT 19 Alkaline Phosphatase 115 Total Protein 8.5 H Albumin 3.9 Globulin 4.6 H Albumin/Globulin Ratio 0.8 L Lipase 26 Serum , Qual NEGATIVE Urine Color Yellow Urine Clarity Clear Urine pH 7.0 Ur Specific [place] 1.005 Urine Protein Negative Urine Glucose (UA) Normal Urine Ketones Negative Urine Occult Blood Negative Urine Nitrite Negative Urine Bilirubin Negative Urine Urobilinogen Normal Ur Leukocyte Esterase Negative Radiography Diagnostic Testing: Clinical Impression(s) from Imaging Studies Abdomen/Pelvis CT 02/21/24 21:14 IMPRESSION: Possible mild cystitis, correlation with urinalysis recommended. Decompression of the descending colon with underlying colitis difficult to be excluded, correlation with history of diarrheal state recommended. No acute appendicitis or bowel obstruction. Electronically Signed: Goldie Toribio MD at 21:54 EST , Discharge Plan Triage Chief Complaint: GI Bleed ED Provider: Jaylen Delgado Dx/Rx/DC Orders Instructions: ED Understanding Colitis Prescriptions: New amoxicillin-pot clavulanate 875-125 mg tablet 1 tab PO BID Qty: 20 0RF No Action topiramate 100 mg tablet 100 mg PO QHS Rx Instructions: give with 25 mg tablet to = 125 mg medroxyprogesterone [Depo-Provera] 150 mg/mL suspension 150 mg IM .q10w Patient Comments: INJECT 1ML INTRAMUSCULARILY EVERY 12 WEEKS aripiprazole 5 mg tablet 10 mg PO DAILY fluoxetine 40 mg capsule 40 mg PO QHS topiramate 25 mg tablet 25 mg PO DAILY Patient Comments: take 1 tablet by mouth at bedtime Rx Instructions: give with 100 mg tablet to = 125 mg epinephrine 0.3 mg/0.3 mL auto-injector 1 mg IM PRN PRN (Reason: Allergic Reaction) Patient Comments: INJECT INTO THE MUSCLE NEEDED FOR ANAPHYLAXIS REACTION albuterol sulfate 90 mcg/actuation HFA aerosol inhaler 2 puff INHALATION PRN PRN (Reason: Wheezing) Patient Comments: inhale 2 puffs by mouth and INTO THE LUNGS every 4 hours if neede... (REFER TO PRESCRIPTION NOTES). trazodone 50 mg tablet 50 mg PO QHS Patient Comments: TAKE 1 OR 2 TABLETS BY MOUTH AT BEDTIME prazosin 1 mg capsule 1 mg PO DAILY ondansetron 4 mg tablet,disintegrating 4 mg PO Q8H PRN PRN (Reason: Nausea) Qty: 10 0RF naproxen [Naprosyn] 500 mg tablet 500 mg PO BID PRN (Reason: pain) Qty: 20 0RF metoclopramide HCl [Reglan] 10 mg tablet 10 mg PO Q6H PRN (Reason: nausea and vomiting) Qty: 14 0RF ondansetron 4 mg tablet,disintegrating 4 mg PO Q8H PRN PRN (Reason: Nausea) Qty: 14 0RF hyoscyamine sulfate [Levsin] 0.125 mg tablet 0.125 mg PO Q6H PRN (Reason: pain) dicyclomine 20 mg tablet 20 mg PO TID 7 Days Qty: 21 0RF hydrocodone-acetaminophen 5-325 mg tablet 1 tab PO Q6H PRN PRN (Reason: Pain) 3 Days Qty: 10 0RF ondansetron 4 mg tablet,disintegrating 4 mg PO Q6H Qty: 10 0RF amoxicillin-pot clavulanate [amoxicillin-pot clavulanate] 875-125 mg tablet 875 mg PO Q12H Qty: 20 0RF pantoprazole 40 mg tablet,delayed release (DR/EC) 40 mg PO BID Qty: 60 3RF carvedilol 12.5 mg tablet 12.5 mg PO BID Qty: 180 3RF Rx Instructions: must administer with a meal/food Primary Care Provider: Monica Patterson Referrals: Damir Hdz DO [Med Staff - Active Staff] - 3-5 Days Monica Patterson, [employer] [Primary Care Provider] - Disposition Disposition: Home, Self Care Discharge Date/Time: 06/05/23 22:21
[2023-06-05 21:22] LABS: ALB/GLOB Ratio 0.8 RATIO (0.9-2.4); AST(SGOT) 12 U/L (15-37); Alanine Aminotransfer ALT/SGPT 19 U/L (13-56); Albumin, Serum 3.9 g/dL (3.2-5.0); Alkaline Phosphatase 115 U/L (45-117); Anion Gap 6 (5-15); BUN 8 mg/dL (7-18); BUN/Creat Ratio 9.5 RATIO (10-20); Chloride 108 mmol/L (98-107); Creatinine, Serum 0.84 mg/dL (0.55-1.02); EST Glomerular Filtration Rate 90 mL/min (>60); Est Glom Filt Rate - Afr Amer 108 mL/min (>60); Estimated Creatinine Clearance 105.52 ml/min; Globulin 4.6 g/dL (2.2-4.2); Glucose 95 mg/dL (74-106); Lipase 26 U/L (13-75); Potassium 3.5 mmol/L (3.5-5.1); Protein, Total 8.5 g/dL (6.4-8.2); Sodium Level 137 mmol/L (136-145)
[2023-06-05] MEDS: Ketorolac 15 MG/ML Vial IV (21:45)
[2023-06-05] MEDS: Ondansetron 4 MG/2 ML Vial IV (21:45)
[2023-06-05] MEDS: Amox/Clavulanate 875 MG Tablet PO (22:17)
[2023-06-05 22:20] VITALS: BP 130/88; PULSE 71; RESP 16; TEMP 36.4; O2SAT 98
== END 2023-06-05 22:21 | disposition home or self-care (01) ==
PROVIDERS: Emergency Provider Student in an Organized Health Care Education/Training Program; PCP Nurse Practitioner Family; Visit Provider Student in an Organized Health Care Education/Training Program
DX: K52.9 Noninfective gastroenteritis and colitis, unspecified (principal); K92.2 Gastrointestinal hemorrhage, unspecified; K31.84 Gastroparesis; F17.200 Nicotine dependence, unspecified, uncomplicated; J45.909 Unspecified asthma, uncomplicated; F32.9 Major depressive disorder, single episode, unspecified; F42.9 Obsessive-compulsive disorder, unspecified; K21.9 Gastro-esophageal reflux disease without esophagitis; G89.29 Other chronic pain; R10.2 Pelvic and perineal pain; R11.0 Nausea; R10.9 Unspecified abdominal pain
CPT/HCPCS: 74177; 80053; 81002; 83690; 84703; 85025; 99282; J7030; Q9967; A4216; J2405

== ENCOUNTER 2023-06-07 12:37 | Emergency (ER) | payer MEDICAID, SELFPAY ==
[2023-06-07 12:37] VITALS: BP 131/63; PULSE 80; RESP 16; TEMP 36.7; O2SAT 100; BMI 28.9
== END 2023-06-07 14:40 | disposition left against medical advice (07) ==
LOC: ED 14:58
PROVIDERS: Emergency Provider Emergency Medicine; PCP Nurse Practitioner Family; Visit Provider Emergency Medicine
DX: Z00.00 Encounter for general adult medical examination without abnormal findings (principal)

== ENCOUNTER 2023-06-09 17:08 | Emergency (ER) | payer MEDICAID, SELFPAY ==
[2023-06-09 17:08] VITALS: BP 134/86; PULSE 92; RESP 14; TEMP 36.7; O2SAT 100; BMI 29.7
--- NOTE | 2023-06-09 17:27 | EKG12_ITS ---
Test Reason : CP Blood Pressure : / mmHG Vent. Rate : 073 BPM Atrial Rate : 073 BPM P-R Int : 144 ms QRS Dur : 076 ms QT Int : 384 ms P-R-T Axes : 045 026 -04 degrees QTc Int : 423 ms Normal sinus rhythm with sinus arrhythmia Nonspecific T wave abnormality Abnormal ECG Confirmed by JOHANNA COOL, CLAUDIA ([id number]), news copy editor JOHANA ESCAMILLA ([id number]) on 06/17/2023 9:42:43 AM Referred By: MARICEL Confirmed By:SUSHILA SPENCER MD
--- NOTE | 2023-06-09 17:30 | EDS_ITS ---
HPI <TRINO Garcia - Last Filed: 06/09/23 21:30> History of Present Illness Chief Complaint: Abd Pain Narrative Narrative: 23-year-old female with PMH of chronic abdominal and pelvic pain, GERD, gastroparesis states she was driving at 2 PM and developed burning pain in her chest, heart fluttering, dry mouth and headache. There is no shortness of breath, nausea vomiting, or diaphoresis. She was seen here on 06/05/23 diagnosed with colitis and is taking Augmentin. She has no cardiopulmonary history. No history of DVT/PE or risk factors. PFSH <TRINO Garcia - Last Filed: 06/09/23 21:30> PFSH Medical History Anxiety Asthma Depression Diarrhea Endometriosis Gastroparesis GERD (gastroesophageal reflux disease) Migraine OCD (obsessive compulsive disorder) Pelvic pain POTS (postural orthostatic tachycardia syndrome) PTSD (post-traumatic stress disorder) Schizophrenia Smoker Tachycardia Upper abdominal pain Home Medications albuterol sulfate 90 mcg/actuation aerosol inhaler 2 puff inhalation PRN PRN Wheezing 06/14/21 [History Last Taken Unknown] epinephrine 0.3 mg/0.3 mL injection, auto-injector 1 mg IM PRN PRN Allergic Reaction 06/14/21 [History Last Taken Unknown] medroxyprogesterone 150 mg/mL intramuscular suspension (Depo-Provera) 150 mg IM .q10w 01/04/22 [History Last Taken Unknown] prazosin 1 mg capsule 1 mg PO DAILY PTSD 03/19/22 [History Last Taken Unknown] trazodone 50 mg tablet 50 mg PO QHS 03/19/22 [History Last Taken Unknown] ondansetron 4 mg disintegrating tablet 4 mg PO Q8H PRN PRN Nausea #10 tabs 09/07/22 [Rx Last Taken Unknown] pantoprazole 40 mg tablet,delayed release 40 mg PO BID #60 tabs 12/03/22 [Rx La st Taken Unknown] naproxen 500 mg tablet (Naprosyn) 500 mg PO BID PRN pain #20 tabs 12/18/22 [Rx Last Taken Unknown] aripiprazole 5 mg tablet 10 mg PO DAILY schizophrenia 01/16/23 [History Last Taken Unknown] fluoxetine 40 mg capsule 40 mg PO QHS depression 01/16/23 [History Last Taken Unknown] topiramate 100 mg tablet 100 mg PO QHS 01/16/23 [History Last Taken Unknown] topiramate 25 mg tablet 25 mg PO DAILY 01/16/23 [History Last Taken Unknown] carvedilol 12.5 mg tablet 12.5 mg PO BID #180 tabs 02/11/23 [Rx Last Taken Unknown] metoclopramide HCl 10 mg tablet (Reglan) 10 mg PO Q6H PRN nausea and vomiting #14 tabs 05/02/23 [Rx Last Taken Unknown] ondansetron 4 mg disintegrating tablet 4 mg PO Q8H PRN PRN Nausea #14 tabs 05/02/23 [Rx Last Taken Unknown] hyoscyamine sulfate 0.125 mg tablet (Levsin) 0.125 mg PO Q6H PRN pain 05/07/23 [History Last Taken Unknown] dicyclomine 20 mg tablet 20 mg PO TID 7 days #21 tabs 05/11/23 [Rx Last Taken Unknown] hydrocodone-acetaminophen 5-325mg 5mg-325mg 1 tab PO Q6H PRN PRN Pain 3 days #10 TABLETS 05/11/23 [Rx Last Taken Unknown] ondansetron 4 mg disintegrating tablet 4 mg PO Q6H #10 tabs 05/11/23 [Rx Last Taken Unknown] amoxicillin 875 mg-potassium clavulanate 125 mg tablet 875 mg (0.875 x 875-125 mg) PO Q12H #20 TABLETS 05/22/23 [Rx Last Taken Unknown] amoxicillin 875 mg-potassium clavulanate 125 mg tablet 1 tab PO BID #20 tabs 06/05/23 [Rx Last Taken Unknown] Allergy/AdvReac Type Severity Reaction Status Date / Time gabapentin Allergy Rash Verified 06/09/23 17:10 glycerin [From Nasal-Ease] Allergy Swelling Verified 06/09/23 17:10 methylcellulose Allergy Swelling Verified 06/09/23 17:10 [From Nasal-Ease] sertraline [From Zoloft] Allergy Anaphylaxis Verified 06/09/23 17:10 silicone Allergy Rash Verified 06/09/23 17:10 sodium chloride Allergy Swelling Verified 06/09/23 17:10 [From Nasal-Ease] zinc [From Nasal-Ease] Allergy Swelling Verified 06/09/23 17:10 lactose AdvReac Upset Verified 06/09/23 17:10 Stomach Family History Father Anxiety Depression Asthma Hypertension Mother Asthma Diabetes Anxiety Depression CAD (coronary artery disease) Myocardial infarction, Onset Age: 42 Brother Oleksandr-Danlos syndrome Grandmother Myocardial infarction, Onset Age: 41 Grandfather Myocardial infarction, Onset Age: 38 Surgical History History of colonoscopy History of esophagogastroduodenoscopy (EGD) Hx of laparoscopy Social History household members: none Smoking Status: Current every day smoker tobacco type: e-cigarettes alcohol intake: current alcohol intake frequency: holidays/special occasions only substance use type: does not use caffeine: Yes Type: carbonated beverages, coffee and tea ROS <TRINO Garcia - Last Filed: 06/09/23 21:30> ROS ED ROS Narrative Constitutional: Negative for fever, chills, malaise. CVS: Positive for palpitations, chest pain. Negative for syncope. Respiratory: Negative for shortness of breath, cough. GI: Negative for nausea, vomiting. EXAM <TRINO Garcia - Last Filed: 06/09/23 21:30> Physical Exam Narrative Exam Narrative: CONST: Patient sitting in no acute distress. EYES: Normal inspection. NECK: Normal inspection. RESP: No respiratory distress, CTAB. CVS: Regular rate and rhythm, no murmur, no gallop. ABD: Soft and nontender, no guarding or rebound, nondistended. SKIN: Color normal, no rash, warm, dry, intact. EXTREMITIES: Normal appearance, no pedal edema. NEURO: Oriented x4. PSYCH: Normal affect. Const Vital Signs: 06/09/23 17:08 06/09/23 19:24 Temperature 98.0 F 99.1 F Temperature Source Temporal Pulse Rate 92 79 Respiratory Rate 14 13 Blood Pressure 134/86 H 110/74 Blood Pressure Mean 102 86 Pulse Ox 100 100 Oxygen Delivery Method Room Air <Dr. Gus Richard MD - Last Filed: 06/09/23 19:00> Physical Exam Const Vital Signs: 06/09/23 17:08 02/25/24 19:24 Temperature 98.0 F 99.1 F Temperature Source Temporal Pulse Rate 92 79 Respiratory Rate 14 13 Blood Pressure 134/86 H 110/74 Blood Pressure Mean 102 86 Pulse Ox 100 100 Oxygen Delivery Method Room Air [facility] <TRINO Garcia - Last Filed: 06/09/23 21:30> [facility] Narrative Medical decision making narrative: Patient has burning chest pain that started at rest. She appears well and nontoxic and is afebrile with normal vital signs. She has a normal ca rdiopulmonary exam and soft, nontender abdomen. EKG is sinus rhythm with no acute ischemic changes and CXR shows no acute process. I do not think she needs cardiac enzymes as she has no risk factors for CAD. She also has a normal troponin this week while in the ED. Her burning pain sounds more related to her chronic abdominal problems and GERD and she was treated with a GI cocktail and Pepcid with improvement. I discussed symptomatic management and she was discharged in stable condition. Radiography Diagnostic Testing: Clinical Impression(s) from Imaging Studies Chest X-Ray 06/09/23 17:45 IMPRESSION: No radiographic evidence of acute cardiopulmonary disease. Electronically Signed: Chuy Rojo MD at 18:34 EST , EKG Initial EKG: Attestation: I personally reviewed and interpreted this EKG as follows: Interpretation: Sinus Rhythm and No Acute Injury Pattern Comments: Normal sinus rhythm with sinus arrhythmia at 73 bpm Nonspecific T wave abnormality Prior EKG tracings: available for review Prior: Unchanged <Dr. Gus Richard MD - Last Filed: 06/09/23 19:00> [facility] Radiography Diagnostic Testing: Clinical Impression(s) from Imaging Studies Chest X-Ray 06/09/23 17:45 IMPRESSION: No radiographic evidence of acute cardiopulmonary disease. Electronically Signed: Chuy Rojo MD at 18:34 EST , Treatment and Re-Evaluation Comments:: I have personally performed a face to face assessment of the patient and have reviewed the ALANIS Note. I performed a substantive portion of the visit including all aspects of the following. My lawson findings include: History is central and left chest discomfort last several hours for the most part nonpleuritic and no associated symptoms or radiation to jaw or arm. Confirms has had several carbonated beverages today. States she did notice some swelling in both of her legs/ankles recently but agrees that they are not swollen now. No near-syncope or syncope or palpitations. Exam is chest nontender. Heart regular no tachycardia no murmurs. Lungs clear documentation throughout. Equal bilateral 2+/4 radial pulses. No calf tenderness or pedal edema. Medical Decison Making EKG and two-view chest x-ray my interpretation normal. Given her age and health and history of GI issues in the past, this is much more likely to be GI than something cardiopulmonary. We treated her with a GI cocktail she states half of her chest pain was resolved shortly thereafter. Will also be given Pepcid and discharged with close outpatient follow-up instructions. Other additions or changes: [None] Discharge Plan Triage Chief Complaint: Abd Pain ED Midlevel Provider: Dai Fonseca ED Provider: Gus Richard Dx/Rx/DC Orders Clinical Impression: Chest pain Instructions: ED Chest Pain, Uncertain Cause Prescriptions: No Action topiramate 100 mg tablet 100 mg PO QHS Rx Instructions: give with 25 mg tablet to = 125 mg medroxyprogesterone [Depo-Provera] 150 mg/mL suspension 150 mg IM .q10w Patient Comments: INJECT 1ML INTRAMUSCULARILY EVERY 12 WEEKS aripiprazole 5 mg tablet 10 mg PO DAILY fluoxetine 40 mg capsule 40 mg PO QHS topiramate 25 mg tablet 25 mg PO DAILY Patient Comments: take 1 tablet by mouth at bedtime Rx Instructions: give with 100 mg tablet to = 125 mg epinephrine 0.3 mg/0.3 mL auto-injector 1 mg IM PRN PRN (Reason: Allergic Reaction) Patient Comments: INJECT INTO THE MUSCLE NEEDED FOR ANAPHYLAXIS REACTION albuterol sulfate 90 mcg/actuation HFA aerosol inhaler 2 puff INHALATION PRN PRN (Reason: Wheezing) Patient Comments: inhale 2 puffs by mouth and INTO THE LUNGS every 4 hours if neede... (REFER TO PRESCRIPTION NOTES). trazodone 50 mg tablet 50 mg PO QHS Patient Comments: TAKE 1 OR 2 TABLETS BY MOUTH AT BEDTIME prazosin 1 mg capsule 1 mg PO DAILY ondansetron 4 mg tablet,disintegrating 4 mg PO Q8H PRN PRN (Reason: Nausea) Qty: 10 0RF naproxen [Naprosyn] 500 mg tablet 500 mg PO BID PRN (Reason: pain) Qty: 20 0RF metoclopramide HCl [Reglan] 10 mg tablet 10 mg PO Q6H PRN (Reason: nausea and vomiting) Qty: 14 0RF ondansetron 4 mg tablet,disintegrating 4 mg PO Q8H PRN PRN (Reason: Nausea) Qty: 14 0RF hyoscyamine sulfate [Levsin] 0.125 mg tablet 0.125 mg PO Q6H PRN (Reason: pain) dicyclomine 20 mg tablet 20 mg PO TID 7 Days Qty: 21 0RF hydrocodone-acetaminophen 5-325 mg tablet 1 tab PO Q6H PRN PRN (Reason: Pain) 3 Days Qty: 10 0RF ondansetron 4 mg tablet,disintegrating 4 mg PO Q6H Qty: 10 0RF amoxicillin-pot clavulanate [amoxicillin-pot clavulanate] 875-125 mg tablet 875 mg PO Q12H Qty: 20 0RF amoxicillin-pot clavulanate 875-125 mg tablet 1 tab PO BID Qty: 20 0RF pantoprazole 40 mg tablet,delayed release (DR/EC) 40 mg PO BID Qty: 60 3RF carvedilol 12.5 mg tablet 12.5 mg PO BID Qty: 180 3RF Rx Instructions: must administer with a meal/food Primary Care Provider: Monica Patterson Referrals: Monica Patterson, [employer]CHANIC [employer]IVER[employer] [Primary Care Provider] - Activity Restrictions/Additional Instructions: Your EKG and chest x-ray look normal. Please follow-up with your primary care doctor. Disposition Disposition: Home, Self Care Discharge Date/Time: 06/09/23 19:25
--- NOTE | 2023-06-09 17:45 | RAD_ITS ---
EXAM: XR CHEST, 1 VIEW CLINICAL INDICATION: pain TECHNIQUE: Frontal view of the chest. COMPARISON: 03.09.23 FINDINGS: LUNGS AND PLEURAL SPACES: Unremarkable. No consolidation or edema. No pneumothorax. No effusion. HEART: Unremarkable. Cardiac silhouette not enlarged. MEDIASTINUM: Central airways and mediastinal contour are unremarkable. BONES/JOINTS: Unremarkable. No acute fracture. SOFT TISSUES: Unremarkable. RAD/Chest 1 View (Portable) IMPRESSION: No radiographic evidence of acute cardiopulmonary disease. Electronically Signed: Chuy Rojo MD at 18:34 EST ,
[2023-06-09] MEDS: Mag Hydrox/Al Hydrox/Simeth 30 ML UDC PO (18:07)
[2023-06-09] MEDS: Famotidine 20 MG Tablet PO (18:36)
[2023-06-09 19:24] VITALS: BP 110/74; PULSE 79; RESP 13; TEMP 37.3; O2SAT 100
== END 2023-06-09 19:25 | disposition home or self-care (01) ==
PROVIDERS: Emergency Provider Emergency Medicine; PCP Nurse Practitioner Family; Visit Provider Emergency Medicine
DX: R07.9 Chest pain, unspecified (principal); F20.9 Schizophrenia, unspecified; R51.9 Headache, unspecified; I49.8 Other specified cardiac arrhythmias; F17.200 Nicotine dependence, unspecified, uncomplicated; K31.84 Gastroparesis; K52.9 Noninfective gastroenteritis and colitis, unspecified; F42.9 Obsessive-compulsive disorder, unspecified; K21.9 Gastro-esophageal reflux disease without esophagitis; J45.909 Unspecified asthma, uncomplicated
CPT/HCPCS: 71045; 93005; 99283

== ENCOUNTER 2023-06-13 19:28 | Emergency (ER) | payer MEDICAID, SELFPAY ==
[2023-06-13 19:29] VITALS: BP 119/83; PULSE 95; RESP 18; TEMP 37.3; O2SAT 98; BMI 29.8
--- NOTE | 2023-06-13 19:50 | EX.ED.DYSGE1 ---
HPI <TRINO Harvey - Last Filed: 06/13/23 21:50> History of Present Illness Chief Complaint: Fever Narrative Narrative: Patient presenting today due to low back pain and generalized abdominal pain. She reports that on Saturday she had a laparoscopic hernia repair performed with in [place]. She is unable to tell me what type of hernia she had repaired. She was discharged from the hospital yesterday. She reports that she did have low back pain while in the hospital and was told that this was likely referred pain from her surgery. She reports dysuria as well. This afternoon she had a fever of 100.4 ?F, she reports that she called the surgeon's office, Dr. Kohler and they did not seem too concerned regarding her fever but it went up again shortly after that prompting her to come in for evaluation. She denies any nausea or vomiting. PFSH <TRINO Harvey - Last Filed: 06/13/23 21:50> FOR[facility]LY [facility] Medical History Anxiety Asthma Depression Diarrhea Endometriosis Gastroparesis GERD (gastroesophageal reflux disease) Migraine OCD (obsessive compulsive disorder) Pelvic pain POTS (postural orthostatic tachycardia syndrome) PTSD (post-traumatic stress disorder) Schizophrenia Smoker Tachycardia Upper abdominal pain Home Medications albuterol sulfate 90 mcg/actuation aerosol inhaler 2 puff inhalation PRN PRN Wheezing 06/14/21 [History Last Taken Unknown] epinephrine 0.3 mg/0.3 mL injection, auto-injector 1 mg IM PRN PRN Allergic Reaction 06/14/21 [History Last Taken Unknown] medroxyprogesterone 150 mg/mL intramuscular suspension (Depo-Provera) 150 mg IM .q10w 01/04/22 [History Last Taken Unknown] prazosin 1 mg capsule 1 mg PO DAILY PTSD 03/19/22 [History Last Taken Unknown] trazodone 50 mg tablet 50 mg PO QHS 03/19/22 [History Last Taken Unknown] ondansetron 4 mg disintegrating tablet 4 mg PO Q8H PRN PRN Nausea #10 tabs 09/07/22 [Rx Last Taken Unknown] pantoprazole 40 mg tablet,delayed release 40 mg PO BID #60 tabs 12/03/22 [Rx Last Taken Unknown] naproxen 500 mg tablet (Naprosyn) 500 mg PO BID PRN pain #20 tabs 12/18/22 [Rx Last Taken Unknown] aripiprazole 5 mg tablet 10 mg PO DAILY schizophrenia 01/16/23 [History Last Taken Unknown] fluoxetine 40 mg capsule 40 mg PO QHS depression 01/16/23 [History Last Taken Unknown] topiramate 100 mg tablet 100 mg PO QHS 01/16/23 [History Last Taken Unknown] topiramate 25 mg tablet 25 mg PO DAILY 01/16/23 [History Last Taken Unknown] carvedilol 12.5 mg tablet 12.5 mg PO BID #180 tabs 02/11/23 [Rx Last Taken Unknown] metoclopramide HCl 10 mg tablet (Reglan) 10 mg PO Q6H PRN nausea and vomiting #14 tabs 05/02/23 [Rx Last Taken Unknown] ondansetron 4 mg disintegrating tablet 4 mg PO Q8H PRN PRN Nausea #14 tabs 05/02/23 [Rx Last Taken Unknown] hyoscyamine sulfate 0.125 mg tablet (Levsin) 0.125 mg PO Q6H PRN pain 05/07/23 [History Last Taken Unknown] dicyclomine 20 mg tablet 20 mg PO TID 7 days #21 tabs 05/11/23 [Rx Last Taken Unknown] hydrocodone-acetaminophen 5-325mg 5mg-325mg 1 tab PO Q6H PRN PRN Pain 3 days #10 TABLETS 05/11/23 [Rx Last Taken Unknown] ondansetron 4 mg disintegrating tablet 4 mg PO Q6H #10 tabs 05/11/23 [Rx Last Taken Unknown] amoxicillin 875 mg-potassium clavulanate 125 mg tablet 875 mg (0.875 x 875-125 mg) PO Q12H #20 TABLETS 05/22/23 [Rx Last Taken Unknown] amoxicillin 875 mg-potassium clavulanate 125 mg tablet 1 tab PO BID #20 tabs 06/05/23 [Rx Last Taken Unknown] Allergy/AdvReac Type Severity Reaction Status Date / Time gabapentin Allergy Rash Verified 06/13/23 19:32 glycerin [From Nasal-Ease] Allergy Swelling Verified 06/13/23 19:32 methylcellulose Allergy Swelling Verified 06/13/23 19:32 [From Nasal-Ease] sertraline [From Zoloft] Allergy Anaphylaxis Verified 06/13/23 19:32 silicone Allergy Rash Verified 06/13/23 19:32 sodium chloride Allergy Swelling Verified 06/13/23 19:32 [From Nasal-Ease] zinc [From Nasal-Ease] Allergy Swelling Verified 06/13/23 19:32 lactose AdvReac Upset Verified 06/13/23 19:32 Stomach Family History Father Anxiety Depression Asthma Hypertension Mother Asthma Diabetes Anxiety Depression CAD (coronary artery disease) Myocardial infarction, Onset Age: 42 Brother Oleksandr-Danlos syndrome Grandmother Myocardial infarction, Onset Age: 41 Grandfather Myocardial infarction, Onset Age: 38 Surgical History History of colonoscopy History of esophagogastroduodenoscopy (EGD) Hx of laparoscopy Social History household members: none Smoking Status: Current every day smoker tobacco type: e-cigarettes alcohol intake: current alcohol intake frequency: holidays/special occasions only substance use type: does not use caffeine: Yes Type: carbonated beverages, coffee and tea ROS <TRINO Harvey - Last Filed: 06/13/23 21:50> ROS ED Constitutional Constitutional ED: Reports fever(s); Denies chills Cardiovascular Cardiovascular: Denies chest pain Respiratory/Chest Respiratory/Chest: Denies cough or dyspnea Gastrointestinal Gastrointestinal: Reports abdominal pain and constipation; Denies diarrhea, nausea or vomiting Genitourinary Genitourinary ED: Reports dysuria; Denies hematuria or urinary urgency Musculoskeletal Musculoskeletal: Reports back pain Integumentary Denies rash Neurologic Neurologic: Denies weakness EXAM <TRINO Harvey - Last Filed: 06/13/23 21:50> Physical Exam Const Vital Signs: 06/13/23 19:29 06/13/23 21:11 Temperature 99.2 F H Temperature Source Oral Pulse Rate 95 Respiratory Rate 18 Respiratory Effort Normal Non-Labored Respiratory Pattern Normal Blood Pressure 119/83 H Blood Pressure Mean 95 Pulse Ox 98 Oxygen Delivery Method Room Air Positive well nourished, well developed and no apparent distress General Appearance ED: well developed HEENT Reports normocephalic and head/scalp atraumatic Mouth ED: Yes moist mucous membranes normal Eyes PERRL and EOMs intact bilaterally Neck full ROM and supple Chest Wall inspection of chest normal Resp normal respiratory effort and clear to auscultation bilaterally Cardio regular rate and regular rhythm GI soft to palpation, non-distended and no masses GI Narrative: Laparoscopic incisions intact, no dehiscence, warmth, erythema, or purulent discharge Generalized tenderness to palpation, no rigidity or guarding Back/Spine normal ROM and normal to inspection Extremity normal to inspection and full ROM Neuro oriented x3, CN's II-XII intact bilaterally, moves all extremities, no focal motor deficits and no sensory deficits noted Sensorium / Orientation: awake and alert Psych mental status grossly normal and thought process normal Skin no rashes or lesions noted and no wounds <Dr. Loree Funes DO - Last Filed: 06/13/23 22:13> Physical Exam Const Vital Signs: 06/13/23 19:29 06/13/23 21:11 Temperature 99.2 F H Temperature Source Oral Pulse Rate 95 Respiratory Rate 18 Respiratory Effort Normal Non-Labored Respiratory Pattern Normal Blood Pressure 119/83 H Blood Pressure Mean 95 Pulse Ox 98 Oxygen Delivery Method Room Air MDM <TRINO Harvey - Last Filed: 06/13/23 21:50> [facility] Narrative Medical decision making narrative: Patient presenting due to generalized abdominal pain and low back pain that she has had for the past 2 days after having a hernia repair at [facility] 2 days ago. She also reports dysuria. She is well-appearing and in no acute distress, vitals are unremarkable. She will be given IV fluids, Toradol, and Zofran. Labs obtained and overall are unremarkable, UA negative for UTI. COVID, influenza, and RSV swabs negative. CT of the abdomen pelvis obtained and shows stranding opacities in the right lower quadrant adjacent to the appendix, early appendicitis cannot be ruled out, there is some air seen in the bladder, patient did have a Alejandre catheter placed during her surgery. We will attempt to get a hold of the surgeon, Dr. Kohler. The attending did speak with the general surgeon reports that the CT findings are consistent with the surgery she had performed. Patient may have a viral illness, supportive care measures discussed. She is to follow-up with her PCP and makeup sales advisor in the next 3 to 5 days, return instructions given, she will be discharged home in stable condition and is comfortable with plan. I have personally performed a face to face assessment of the patient and have reviewed the ALANIS Note. I performed a substantive portion of the visit including all aspects of the following. My lawson findings include: History is [patient presents with fever that started yesterday. Patient tells me that she had a hernia repair at [facility] 2 days ago. Patient was discharged home yesterday. She complains of some low back pain and diffuse abdominal pain. She is got a slight cough and a sore throat and bodyaches. She does describe some dysuria. Patient also had an episode of emesis in the emergency department.] Exam is [HEENT-PERRLA, EOMI. Cranial nerves II through XII grossly intact. TMs clear. Mucous membranes moist. No adenopathy. Cardiovascular-regular rate and rhythm without murmur or ectopy Lungs-clear to auscultation, chest wall stable without crepitus or subcu emphysema Abdomen-normoactive bowel sounds, soft. Patient has some diffuse tenderness on exam. She has multiple ports noted on the anterior abdomen and there is no evidence of erythema or drainage from them. Extremities-intact ?4, normal range of motion, normal pulses, atraumatic] Medical Decison Making [patient presents with fever status post surgery. Will obtain basic labs as well as urinalysis and COVID and flu and RSV testing. Will obtain a CT scan of the abdomen pelvis given the abdominal discomfort and recent surgery to evaluate for intra-abdominal abscess.] CBC was obtained showed a normal white count of 5.7 with hemoglobin 11.3 and platelet count of 335. Chemistries unremarkable. Urinalysis showed no signs of infection. COVID flu and RSV testing was negative. Patient has CT scan of the abdomen pelvis that showed some streaking in the right lower quadrant that could represent early uncomplicated appendicitis however the appendix was in normal size otherwise. I discussed findings with patient and also discussed findings with patient's surgeon who believes the stranding in the right lower quadrant likely postop changes and that she did run the bowel several times. And did grasped the terminal ileum when she did that. 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 It is not felt at this time that the patient has appendicitis. She does have some air in her bladder on CT and that is likely related to Alejandre catheter placement at time of surgery. At this point is felt patient to be discharged to home. She may still have a viral syndrome. Advised her to follow-up with her primary care physician and her makeup sales advisor within next 3 to 5 days. She will keep her appointment with the general surgeon as scheduled for June 26. Patient advised to return if worsening pain, persistent vomiting, dehydration, or condition should worsen anyway. Other additions or changes: [None] Lab Data Attestation: I reviewed the patient's lab results. Lab results narrative: H&H 11.3 and 36.2 Labs: Laboratory Results - last 24 hr 06/13/23 06/13/23 20:10 21:05 WBC 5.7 RBC 4.66 Hgb 11.3 L Hct 36.2 L MCV 77.7 L MCH 24.2 L MCHC 31.2 L RDW Std Deviation 40.3 RDW Coeff of Anoop 14.4 Plt Count 335 MPV 8.8 Immature Gran % (Auto) 0.500 Neut % (Auto) 60.6 Lymph % (Auto) 26.7 [place] % (Auto) 9.2 Eos % (Auto) 2.5 Baso % (Auto) 0.5 Absolute Neuts (auto) 3.4 Absolute Lymphs (auto) 1.51 Nucleated RBC % 0 Sodium 140 Potassium 3.7 Chloride 114 H Carbon Dioxide 21.0 Anion Gap 5 BUN 4 L Creatinine 0.83 Estim Creat Clear Calc 108.09 Est GFR (MDRD) Af Amer 110 Est GFR (MDRD) Non-Af 91 BUN/Creatinine Ratio 4.8 L Glucose 99 Calcium 8.2 L Urine Color Yellow Urine Clarity Clear Urine pH 7.0 Ur Specific [place] 1.005 Urine Protein Negative Urine Glucose (UA) Normal Urine Ketones Negative Urine Occult Blood Negative Urine Nitrite Negative Urine Bilirubin Negative Urine Urobilinogen Normal Ur Leukocyte Esterase 500 H Urine RBC 0-5 SEEN Urine WBC 0-5 SEEN Ur Squamous Epith Cells 0-5 SEEN Urine Bacteria RARE Urine Mucus 0 SEEN Radiography Diagnostic Testing: Clinical Impression(s) from Imaging Studies Abdomen/Pelvis CT 06/13/23 19:55 IMPRESSION: 1. Urinary bladder air and mild urinary bladder wall thickening. Correlate for potential emphysematous cystitis. Correlate for recent catheterization. 2. Bibasilar dependent airspace disease is possibly atelectasis rather than pneumonia. Trace bilateral pleural effusions. 3. Heterogenous uterus is nonspecific. Possible uterine fibroids. 4. New strandy opacities in the right lower quadrant adjacent to the appendix which appears otherwise within normal limits. An early uncomplicated acute appendicitis cannot be entirely excluded. Electronically Signed: Tano PradhanElle Zurita DO at 21:14 EST , ADDENDUM: 06/13/232121 IMPRESSION: 1. Urinary bladder air and mild urinary bladder wall thickening. Correlate for potential emphysematous cystitis. Correlate for recent catheterization. 2. Bibasilar dependent airspace disease is possibly atelectasis rather than pneumonia. Trace bilateral pleural effusions. 3. Heterogenous uterus is nonspecific. Possible uterine fibroids. 4. New strandy opacities in the right lower quadrant adjacent to the appendix which appears otherwise within normal limits. An early uncomplicated acute appendicitis cannot be entirely excluded. N.B. : KELLY Osorio, confirmed on 06/13/2023 21:16:04 (ET) that the healthcare facility has received the radiology report. Electronically Signed: Tano PradhanElle Zurita DO at 21:14 EST , <Dr. Loree Funes, DO - Last Filed: 06/13/23 22:13> [facility] Narrative Medical decision making narrative: Patient presenting due to generalized abdominal pain and low back pain that she has had for the past 2 days after having a hernia repair at [facility] 2 days ago. She also reports dysuria. She is well-appearing and in no acute distress, vitals are unremarkable. She will be given IV fluids, Toradol, and Zofran. Labs obtained and overall are unremarkable, UA negative for UTI. COVID, influenza, and RSV swabs negative. CT of the abdomen pelvis obtained and shows stranding opacities in the right lower quadrant adjacent to the appendix, early appendicitis cannot be ruled out, there is some air seen in the bladder, patient did have a Alejandre catheter placed during her surgery. We will attempt to get a hold of the surgeon, Dr. Kohler. I have personally performed a face to face assessment of the patient and have reviewed the ALANIS Note. I performed a substantive portion of the visit including all aspects of the following. My lawson findings include: History is [patient presents with fever that started yesterday. Patient tells me that she had a hernia repair at [facility] 2 days ago. Patient was discharged home yesterday. She complains of some low back pain and diffuse abdominal pain. She is got a slight cough and a sore throat and bodyaches. She does describe some dysuria. Patient also had an episode of emesis in the emergency department.] Exam is [SARAH TERESA. Cranial nerves II through XII grossly intact. TMs clear. Mucous membranes moist. No adenopathy. Cardiovascular-regular rate and rhythm without murmur or ectopy Lungs-clear to auscultation, chest wall stable without crepitus or subcu emphysema Abdomen-normoactive bowel sounds, soft. Patient has some diffuse tenderness on exam. She has multiple ports noted on the anterior abdomen and there is no evidence of erythema or drainage from them. Extremities-intact ?4, normal range of motion, normal pulses, atraumatic] Medical Decison Making [patient presents with fever status post surgery. Will obtain basic labs as well as urinalysis and COVID and flu and RSV testing. Will obtain a CT scan of the abdomen pelvis given the abdominal discomfort and recent surgery to evaluate for intra-abdominal abscess.] CBC was obtained showed a normal white count of 5.7 with hemoglobin 11.3 and platelet count of 335. Chemistries unremarkable. Urinalysis showed no signs of infection. COVID flu and RSV testing was negative. Patient has CT scan of the abdomen pelvis that showed some streaking in the right lower quadrant that could represent early uncomplicated appendicitis however the appendix was in normal size otherwise. I discussed findings with patient and also discussed findings with patient's surgeon who believes the stranding in the right lower quadrant likely postop changes and that she did run the bowel several times. And did grasped the terminal ileum when she did that. 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 It is not felt at this time that the patient has appendicitis. She does have some air in her bladder on CT and that is likely related to Alejandre catheter placement at time of surgery. At this point is felt patient to be discharged to home. She may still have a viral syndrome. Advised her to follow-up with her primary care physician and her makeup sales advisor within next 3 to 5 days. She will keep her appointment with the general surgeon as scheduled for June 26. Patient advised to return if worsening pain, persistent vomiting, dehydration, or condition should worsen anyway. Other additions or changes: [None] Lab Data Labs: Laboratory Results - last 24 hr 06/13/23 06/13/23 20:10 21:05 WBC 5.7 RBC 4.66 Hgb 11.3 L Hct 36.2 L MCV 77.7 L MCH 24.2 L MCHC 31.2 L RDW Std Deviation 40.3 RDW Coeff of Anoop 14.4 Plt Count 335 MPV 8.8 Immature Gran % (Auto) 0.500 Neut % (Auto) 60.6 Lymph % (Auto) 26.7 [place] % (Auto) 9.2 Eos % (Auto) 2.5 Baso % (Auto) 0.5 Absolute Neuts (auto) 3.4 Absolute Lymphs (auto) 1.51 Nucleated RBC % 0 Sodium 140 Potassium 3.7 Chloride 114 H Carbon Dioxide 21.0 Anion Gap 5 BUN 4 L Creatinine 0.83 Estim Creat Clear Calc 108.09 Est GFR (MDRD) Af Amer 110 Est GFR (MDRD) Non-Af 91 BUN/Creatinine Ratio 4.8 L Glucose 99 Calcium 8.2 L Urine Color Yellow Urine Clarity Clear Urine pH 7.0 Ur Specific [place] 1.005 Urine Protein Negative Urine Glucose (UA) Normal Urine Ketones Negative Urine Occult Blood Negative Urine Nitrite Negative Urine Bilirubin Negative Urine Urobilinogen Normal Ur Leukocyte Esterase 500 H Urine RBC 0-5 SEEN Urine WBC 0-5 SEEN Ur Squamous Epith Cells 0-5 SEEN Urine Bacteria RARE Urine Mucus 0 SEEN Radiography Diagnostic Testing: Clinical Impression(s) from Imaging Studies Abdomen/Pelvis CT 06/13/23 19:55 IMPRESSION: 1. Urinary bladder air and mild urinary bladder wall thickening. Correlate for potential emphysematous cystitis. Correlate for recent catheterization. 2. Bibasilar dependent airspace disease is possibly atelectasis rather than pneumonia. Trace bilateral pleural effusions. 3. Heterogenous uterus is nonspecific. Possible uterine fibroids. 4. New strandy opacities in the right lower quadrant adjacent to the appendix which appears otherwise within normal limits. An early uncomplicated acute appendicitis cannot be entirely excluded. Electronically Signed: Tano Zurita DO at 21:14 EST , ADDENDUM: 06/13/232121 IMPRESSION: 1. Urinary bladder air and mild urinary bladder wall thickening. Correlate for potential emphysematous cystitis. Correlate for recent catheterization. 2. Bibasilar dependent airspace disease is possibly atelectasis rather than pneumonia. Trace bilateral pleural effusions. 3. Heterogenous uterus is nonspecific. Possible uterine fibroids. 4. New strandy opacities in the right lower quadrant adjacent to the appendix which appears otherwise within normal limits. An early uncomplicated acute appendicitis cannot be entirely excluded. N.B. : KELLY Osorio, confirmed on 06/13/2023 21:16:04 (ET) that the healthcare facility has received the radiology report. Electronically Signed: Tano Brisenomarcellussamanta at 21:14 EST , Discharge Plan Triage Chief Complaint: Fever ED Midlevel Provider: Zeny Kim ED Provider: Loree Funes Dx/Rx/DC Orders Clinical Impression: Fever of unknown origin, Post-op pain Instructions: Managing Post-Op Pain at Home, ED Viral Syndrome (Adult) Prescriptions: No Action topiramate 100 mg tablet 100 mg PO QHS Rx Instructions: give with 25 mg tablet to = 125 mg medroxyprogesterone [Depo-Provera] 150 mg/mL suspension 150 mg IM .q10w Patient Comments: INJECT 1ML INTRAMUSCULARILY EVERY 12 WEEKS aripiprazole 5 mg tablet 10 mg PO DAILY fluoxetine 40 mg capsule 40 mg PO QHS topiramate 25 mg tablet 25 mg PO DAILY Patient Comments: take 1 tablet by mouth at bedtime Rx Instructions: give with 100 mg tablet to = 125 mg epinephrine 0.3 mg/0.3 mL auto-injector 1 mg IM PRN PRN (Reason: Allergic Reaction) Patient Comments: INJECT INTO THE MUSCLE NEEDED FOR ANAPHYLAXIS REACTION albuterol sulfate 90 mcg/actuation HFA aerosol inhaler 2 puff INHALATION PRN PRN (Reason: Wheezing) Patient Comments: inhale 2 puffs by mouth and INTO THE LUNGS every 4 hours if neede... (REFER TO PRESCRIPTION NOTES). trazodone 50 mg tablet 50 mg PO QHS Patient Comments: TAKE 1 OR 2 TABLETS BY MOUTH AT BEDTIME prazosin 1 mg capsule 1 mg PO DAILY ondansetron 4 mg tablet,disintegrating 4 mg PO Q8H PRN PRN (Reason: Nausea) Qty: 10 0RF naproxen [Naprosyn] 500 mg tablet 500 mg PO BID PRN (Reason: pain) Qty: 20 0RF metoclopramide HCl [Reglan] 10 mg tablet 10 mg PO Q6H PRN (Reason: nausea and vomiting) Qty: 14 0RF ondansetron 4 mg tablet,disintegrating 4 mg PO Q8H PRN PRN (Reason: Nausea) Qty: 14 0RF hyoscyamine sulfate [Levsin] 0.125 mg tablet 0.125 mg PO Q6H PRN (Reason: pain) dicyclomine 20 mg tablet 20 mg PO TID 7 Days Qty: 21 0RF hydrocodone-acetaminophen 5-325 mg tablet 1 tab PO Q6H PRN PRN (Reason: Pain) 3 Days Qty: 10 0RF ondansetron 4 mg tablet,disintegrating 4 mg PO Q6H Qty: 10 0RF amoxicillin-pot clavulanate [amoxicillin-pot clavulanate] 875-125 mg tablet 875 mg PO Q12H Qty: 20 0RF amoxicillin-pot clavulanate 875-125 mg tablet 1 tab PO BID Qty: 20 0RF pantoprazole 40 mg tablet,delayed release (DR/EC) 40 mg PO BID Qty: 60 3RF carvedilol 12.5 mg tablet 12.5 mg PO BID Qty: 180 3RF Rx Instructions: must administer with a meal/food Primary Care Provider: Monica Patterson Referrals: Monica Patterson, PARTS DEPARTMENT MANAGER-C [Primary Care Provider] - Activity Restrictions/Additional Instructions: Please follow-up with your PCP and GI doctor. Return for any worsening of your symptoms. Disposition Disposition: Home, Self Care Discharge Date/Time: 06/13/23 22:00
--- NOTE | 2023-06-13 19:55 | CT_ITS ---
ACR Level 3 findings have been noted. An addendum which confirms receipt of the report will follow. EXAM: CT ABDOMEN AND PELVIS WITH INTRAVENOUS CONTRAST CLINICAL INDICATION: abdominal pain TECHNIQUE: Helically acquired images were obtained of the abdomen and pelvis with intravenous contrast. This CT exam was performed using one or more of the following dose reduction techniques: automated exposure control, adjustment of the mA and/or kV according to patient size, and/or use of iterative reconstruction technique. CONTRAST: IV 100mL Isovue-[id number] COMPARISON: 06/05/2023 FINDINGS: LOWER THORAX: Bibasilar dependent airspace disease is possibly atelectasis rather than pneumonia. Trace bilateral pleural effusions. No cardiomegaly. ABDOMEN: LIVER: Low-attenuation focus within the liver adjacent to the falciform ligament is likely focal fatty infiltration. No additional hepatic abnormality. GALLBLADDER AND BILE DUCTS: No significant abnormality. No calcified gallstones. No gallbladder distention or wall edema. No intra- or extrahepatic biliary ductal dilation. PANCREAS: No significant abnormality. No focal cystic or solid mass. SPLEEN: No significant abnormality. Normal size without focal cystic or solid mass. ADRENALS: No significant abnormality. No nodules. KIDNEYS AND URETERS: No significant abnormality. Normal renal size and position. No hydronephrosis. STOMACH AND BOWEL: No significant abnormality. No stomach or bowel distention. No focal inflammatory change. PELVIS: APPENDIX: Apparent hyperemia of the appendiceal wall which is similar to the prior examination no significant change in the caliber of the appendix since the prior examination measuring up to approximately 7 mm in diameter. BLADDER: Urinary bladder air and mild urinary bladder wall thickening. REPRODUCTIVE: Heterogenous uterus is nonspecific. Possible uterine fibroids. ABDOMEN and PELVIS: INTRAPERITONEAL SPACE: Mesenteric edema in the right lower quadrant. This is new since the prior examination. Otherwise, no significant abnormality. No ascites or other fluid collection. No free air. BONES/JOINTS: No significant abnormality. No suspicious lytic or blastic abnormality. SOFT TISSUES: No discrete abdominal or pelvic wall hernia. VASCULATURE: No significant abnormality. Abdominal aorta is non-dilated. LYMPH NODES: Nonpathologically enlarged although cluster lymph nodes in the right lower quadrant mesentery. CT/Abdomen/Pelvis W IV Cont ONLY IMPRESSION: 1. Urinary bladder air and mild urinary bladder wall thickening. Correlate for potential emphysematous cystitis. Correlate for recent catheterization. 2. Bibasilar dependent airspace disease is possibly atelectasis rather than pneumonia. Trace bilateral pleural effusions. 3. Heterogenous uterus is nonspecific. Possible uterine fibroids. 4. New strandy opacities in the right lower quadrant adjacent to the appendix which appears otherwise within normal limits. An early uncomplicated acute appendicitis cannot be entirely excluded. Electronically Signed: Tano Zurita DO at 21:14 EST ,
[2023-06-13 20:25] LABS: Absolute Lymphocyte Count 1.51 X10^3/uL (0.83-4.51); Absolute Neutrophil Count 3.4 X10^3/uL (2.0-7.7); Basophil# 0.03 X10^3/uL; Basophil% 0.5 % (0-1); Eosinophil# 0.14 X10^3/uL; Eosinophils% 2.5 % (0-5); Hematocrit 36.2 % (37-47); Hemoglobin 11.3 g/dL (12.0-15.0); Lymphocyte # 1.51 X10^3/ul (0.83-4.51); Lymphocyte % 26.7 % (19-41); Mean Corp Hgb Conc 31.2 g/dL (32-36); Mean Corpuscular Hgb 24.2 pg (27.0-32.0); Mean Corpuscular Volume 77.7 fL (81-99); Mean Platelet Vol. 8.8 fl (6.2-12.0); Monocyte# 0.52 X10^3/uL; Monocyte% 9.2 % (0-10); NRBC Flagged by Analyzer 0 % (0-5); Neutrophil # 3.42 X10^3/uL (2.7-7.7); Neutrophil % 60.6 % (47-70); Platelet Count 335 K/mm3 (150-450); RBC Distribution Width CV 14.4 % (11.6-14.6); RBC Distribution Width SD 40.3 fl (35.1-43.9); Red Blood Count 4.66 M/mm3 (4.2-5.4); White Blood Count 5.7 K/mm3 (4.4-11.0)
[2023-06-13] MEDS: 0.9% Normal Saline (1000mL) 1,000 ML 999 ML IV (20:28)
[2023-06-13] MEDS: Ondansetron 4 MG/2 ML Vial IV (20:29)
[2023-06-13] MEDS: Ketorolac 15 MG/ML Vial IV (20:29)
[2023-06-13 20:36] LABS: Anion Gap 5 (5-15); BUN 4 mg/dL (7-18); BUN/Creat Ratio 4.8 RATIO (10-20); Calcium,Total 8.2 mg/dL (8.5-10.1); Chloride 114 mmol/L (98-107); Creatinine, Serum 0.83 mg/dL (0.55-1.02); EST Glomerular Filtration Rate 91 mL/min (>60); Est Glom Filt Rate - Afr Amer 110 mL/min (>60); Estimated Creatinine Clearance 108.09 ml/min; Glucose 99 mg/dL (74-106); Potassium 3.7 mmol/L (3.5-5.1); Sodium Level 140 mmol/L (136-145)
[2023-06-13 21:12] LABS: Mucous, Urine 0 SEEN /hpf (<or=2+)
[2023-06-13 21:21] LABS: Color, Urine Yellow (Yellow); Glucose, Dipstick Normal (Normal); Ketone-Dipstick Negative (Negative); Leukocyte Esterase-Dipstick 500 /ul (Negative); Nitrite-Dipstick Negative (Negative); Occult Blood-Urine Negative /ul (Negative); Protein-Dipstick Negative (Negative); Specific Gravity, Urine 1.005 (1.002-1.030); Urine Bilirubin Dipstick Negative (Negative); Urine Clarity Clear (Clear); Urine Urobilinogen Normal (Normal)
[2023-06-13 21:27] LABS: Red Blood Cells-Urine 0-5 SEEN /hpf (0-5); Squamous Epithelial Cells - UA 0-5 SEEN /hpf (5-10); White Blood Cells 0-5 SEEN /hpf (0-5)
[2023-06-13 21:28] LABS: Bacteria RARE /hpf (None Seen)
[2023-06-13 21:55] VITALS: BP 114/85; PULSE 78; RESP 16; TEMP 36.4; O2SAT 98
== END 2023-06-13 22:00 | disposition home or self-care (01) ==
PROVIDERS: Physician Assistant; Emergency Provider Emergency Medicine; PCP Nurse Practitioner Family; Visit Provider Emergency Medicine
DX: R50.9 Fever, unspecified (principal); F20.9 Schizophrenia, unspecified; G89.18 Other acute postprocedural pain; F43.10 Post-traumatic stress disorder, unspecified; K21.9 Gastro-esophageal reflux disease without esophagitis; F32.A Depression, unspecified; Z79.899 Other long term (current) drug therapy; F17.290 Nicotine dependence, other tobacco product, uncomplicated
CPT/HCPCS: 74177; 80048; 81001; 85025; 87631; 96361; 96374; 96375; 99283; Q9967; A4216; J2405

== ENCOUNTER 2023-07-16 06:43 | Emergency (ER) | payer MEDICAID, SELFPAY ==
[2023-07-16 06:44] VITALS: BP 134/82; PULSE 121; RESP 16; TEMP 36.5; O2SAT 100; BMI 29.6
--- NOTE | 2023-07-16 07:21 | EX.ED.DYSGE1 ---
HPI History of Present Illness Chief Complaint: Hypertension Detail of Chief Complaint: Blood pressure 168/132 yesterday. Informant: patient Onset/Context/Timing Onset: Today and Yesterday Context: Sudden Onset Timing: Intermittent Quality: Please see HPI narrative. Location: Varies and documented HPI narrative Current Severity: Mild Maximum Severity: Moderate Worsened by: Unknown Relieved by: Nothing specific Associated Symptoms Associated Symptoms: Headache, blurred vision, chest pain, blotchy skin, epistaxis Narrative Narrative: Patient is a 23-year-old woman with history of essential hypertension, bipolar affective disorder, hypothyroidism, GERD and POTS who is on carvedilol for her tachycardia. She presents because of elevated blood pressure yesterday 168/132. She was unable to sleep. Last evening she had an episode of epistaxis while sitting. She took her blood pressure at that time it was elevated. She complains of vague headache. She also complains of binocular blurred vision. Nuys double vision or loss of vision. She does endorse ringing or ears. She denies trouble speech or swallowing. She endorses problems with coordination and balance. Patient was upset that her skin was not blotchy when she went to show me her arms. She then became anxious when she noted a area of discoloration anterior right ankle. She was informed that this is a bruise. She states she is uncertain how that could happen. Patient did complain of chest pain. It is not dull pressure heaviness tightness. There is no radiation. There is no associated symptoms. She denies heartburn or indigestion. She denies food intolerance. She denies black or maroon-colored stool. Patient denies dysuria, frequency, urgency or hematuria. Last menses was 3 weeks ago. She is on control, Depo-Provera. Prior similar symptoms: Yes Recent Illness/Hospital[facility]: [facility] Medical History Anxiety Asthma Depression Diarrhea Endometriosis Gastroparesis GERD (gastroesophageal reflux disease) Migraine OCD (obsessive compulsive disorder) Pelvic pain POTS (postural orthostatic tachycardia syndrome) PTSD (post-traumatic stress disorder) Schizophrenia Smoker Tachycardia Upper abdominal pain Home Medications albuterol sulfate 90 mcg/actuation aerosol inhaler 2 puff inhalation PRN PRN Wheezing 06/14/21 [History Last Taken Unknown] epinephrine 0.3 mg/0.3 mL injection, auto-injector 1 mg IM PRN PRN Allergic Reaction 06/14/21 [History Last Taken Unknown] medroxyprogesterone 150 mg/mL intramuscular suspension (Depo-Provera) 150 mg IM .q10w 01/04/22 [History Last Taken Unknown] prazosin 1 mg capsule 1 mg PO DAILY PTSD 03/19/22 [History Last Taken Unknown] trazodone 50 mg tablet 100 mg PO QHS 03/19/22 [History Last Taken Unknown] pantoprazole 40 mg tablet,delayed release 40 mg PO BID #60 tabs 12/03/22 [Rx Last Taken Unknown] naproxen 500 mg tablet (Naprosyn) 500 mg PO BID PRN pain #20 tabs 12/18/22 [Rx Last Taken Unknown] aripiprazole 5 mg tablet 10 mg PO DAILY schizophrenia 01/16/23 [History Last Taken Unknown] fluoxetine 40 mg capsule 40 mg PO QHS depression 01/16/23 [History Last Taken Unknown] topiramate 100 mg tablet 100 mg PO QHS 01/16/23 [History Last Taken Unknown] topiramate 25 mg tablet 25 mg PO DAILY 01/16/23 [History Last Taken Unknown] carvedilol 12.5 mg tablet 12.5 mg PO BID #180 tabs 02/11/23 [Rx Last Taken Unknown] metoclopramide HCl 10 mg tablet (Reglan) 10 mg PO Q6H PRN nausea and vomiting #14 tabs 05/02/23 [Rx Last Taken Unknown] dicyclomine 20 mg tablet 20 mg PO TID 7 days #21 tabs 05/11/23 [Rx Last Taken Unknown] Allergy/AdvReac Type Severity Reaction Status Date / Time gabapentin Allergy Rash Verified 07/16/23 06:44 glycerin [From Nasal-Ease] Allergy Swelling Verified 07/16/23 06:44 methylcellulose Allergy Swelling Verified 07/16/23 06:44 [From Nasal-Ease] sertraline [From Zoloft] Allergy Anaphylaxis Verified 07/16/23 06:44 silicone Allergy Rash Verified 07/16/23 06:44 sodium chloride Allergy Swelling Verified 07/16/23 06:44 [From Nasal-Ease] zinc [From Nasal-Ease] Allergy Swelling Verified 07/16/23 06:44 lactose AdvReac Upset Verified 04/02/24 06:44 Stomach Family History Father Anxiety Depression Asthma Hypertension Mother Asthma Diabetes Anxiety Depression CAD (coronary artery disease) Myocardial infarction, Onset Age: 42 Brother Oleksandr-Danlos syndrome Grandmother Myocardial infarction, Onset Age: 41 Grandfather Myocardial infarction, Onset Age: 38 Surgical History History of colonoscopy History of esophagogastroduodenoscopy (EGD) Hx of laparoscopy Social History household members: none Smoking Status: Current every day smoker tobacco type: e-cigarettes alcohol intake: current alcohol intake frequency: holidays/special occasions only substance use type: does not use caffeine: Yes Type: carbonated beverages, coffee and tea ROS ROS ED Constitutional Constitutional ED: Denies chills, fever(s), subjective, sweats or weight loss Eyes Eyes: Reports change in vision bilateral; Denies blurry vision or diplopia ENT ENT ED: Reports other Details: Tinnitus ; Denies ear pain, rhinorrhea or sore throat Cardiovascular Cardiovascular: Reports chest pain and racing heartbeat; Denies orthopnea, palpitations or paroxysmal nocturnal dyspnea Respiratory/Chest Respiratory/Chest: Denies cough, dyspnea, dyspnea on exertion, orthopnea or paroxysmal nocturnal dyspnea Gastrointestinal Gastrointestinal: Denies abdominal pain, constipation, diarrhea, melena or vomiting Genitourinary Genitourinary ED: Reports LMP (females 10-50) Details: Comment: (3 weeks ago.); Denies dysuria, hematuria or urinary frequency Musculoskeletal Musculoskeletal: Reports back pain; Denies arthralgias, myalgias or neck pain Integumentary Reports rash; Denies abscess or Abrasions Neurologic Neurologic: Reports headache(s); Denies paresthesias or weakness Psychiatric Psychiatric: Reports anxiety and depression; Denies suicidal ideation Endocrine Endocrinology: Denies cold intolerance Hematologic/Lymphatic Hematologic/Lymphatic: Reports systems reviewed and no addt'l complaints, except as documented Allergic/Immunologic Allergic/Immunologic ED: Denies mouth swelling or tongue swelling EXAM Physical Exam Const Vital Signs: 07/16/23 06:44 07/16/23 06:44 Temperature 97.7 F L Temperature Source Temporal Pulse Rate 121 H Respiratory Rate 16 Respiratory Pattern Normal Blood Pressure 134/82 H Blood Pressure Mean 99 Pulse Ox 100 Positive well nourished and well developed General Appearance ED: well developed and NAD; Negative for cyanotic or diaphoretic Eyes PERRL and EOMs intact bilaterally Eyes Narrative: There is no nystagmus. General Eye ED: Negative for pale conjunctiva or scleral icterus Neck no lymphadenopathy, supple and no JVD Neck Narrative: There is no carotid bruit Chest Wall Chest Narrative: There is no chest wall discomfort. Resp normal respiratory effort and clear to auscultation bilaterally Cardio regular rhythm, S1 normal heart sound, S2 normal heart sound and no murmurs Rate: tachycardic GI normal to inspection, nondistended, normoactive bowel sounds, non-tender, non-distended and no masses; Negative for hepatosplenomegaly Back/Spine no CVA tenderness Back/Spine Narrative: Inspection of the back is normal Extremity normal to inspection Extremity Narrative: There is a bruise noted anterior right ankle. There is no pain ovation of the lateral medial malleolus. DP and PT pulse are palpable. Sensation is normal. Neuro oriented x3, CN's II-XII intact bilaterally and no sensory deficits noted Neuro Narrative: There is no clonus or Babinski sign. Sensorium / Orientation: alert Motor Exam: strength 5/5 throughout Psych Mood & Affect: anxious Skin Skin Narrative: Acne MDM MDM MDM Narrative Medical decision making narrative: Patient has a constellation of symptoms. With her having any normal neurologic exam and not having a thunderclap headache and a blood pressure 134/82 with no photophobia no meningeal findings doubt subarachnoid hemorrhage. Will obtain basic blood work to assess seen for endorgan dysfunction. Patient placed on a monitor. She has a sinus tachycardia of 120. This is normal for her. She states she has taken her carvedilol. History & Record Review Additional record(s) reviewed:: Prior ED visit (4 visits in May and 5 visits in April. Varying from fever, colitis, high blood pressure, chest pain and bipolar) and Prior labs Lab Data Attestation: I reviewed the patient's lab results. Lab results narrative: Basic metabolic panel reveals mild hypokalemia. Otherwise unremarkable. Urinalysis is positive for protein urea and leukoesterase on macro. Negative for occult blood and nitrites. Micro reveals 0 to RBCs and 0-5 WBCs. There is 1+ bacteria. This could represent asymptomatic bacteriuria. Labs: Laboratory Results - last 24 hr 07/16/23 07/16/23 07:15 08:08 Sodium 139 Potassium 3.3 L Chloride 110 H Carbon Dioxide 22.0 Anion Gap 7 BUN 5 L Creatinine 0.76 Estim Creat Clear Calc 117.64 Est GFR (MDRD) Af Amer 121 Est GFR (MDRD) Non-Af 100 BUN/Creatinine Ratio 6.5 L Glucose 92 Calcium 8.8 Urine Color Yellow Urine Clarity Sl. Cloudy Urine pH 8.0 Ur Specific [place] 1.010 Urine Protein 15 H Urine Glucose (UA) Normal Urine Ketones Negative Urine Occult Blood Negative Urine Nitrite Negative Urine Bilirubin Negative Urine Urobilinogen Normal Ur Leukocyte Esterase 25 H Urine RBC 0 SEEN Urine WBC 0-5 SEEN Ur Squamous Epith Cells 0-5 SEEN Urine Bacteria 1+ Urine Mucus 0 SEEN Treatment and Re-Evaluation :: Patient was reassessed at 0837. She was informed of results. Had no questions. On and the room she had blanket over her head. She appears no discomfort. She has no questions. Therefore, we will discharge to home Discharge Plan Triage Chief Complaint: Hypertension ED Provider: Fabrice Em Dx/Rx/DC Orders Clinical Impression: Epistaxis, Accelerated hypertension, Sinus tachycardia seen on athletic monitor, Non-cardiac chest pain, Asymptomatic bacteriuria Instructions: ED Chest Pain, Noncardiac, ED Hypertension, Established Prescriptions: No Action topiramate 100 mg tablet 100 mg PO QHS Rx Instructions: give with 25 mg tablet to = 125 mg medroxyprogesterone [Depo-Provera] 150 mg/mL suspension 150 mg IM .q10w Patient Comments: INJECT 1ML INTRAMUSCULARILY EVERY 12 WEEKS aripiprazole 5 mg tablet 10 mg PO DAILY fluoxetine 40 mg capsule 40 mg PO QHS topiramate 25 mg tablet 25 mg PO DAILY Patient Comments: take 1 tablet by mouth at bedtime Rx Instructions: give with 100 mg tablet to = 125 mg epinephrine 0.3 mg/0.3 mL auto-injector 1 mg IM PRN PRN (Reason: Allergic Reaction) Patient Comments: INJECT INTO THE MUSCLE NEEDED FOR ANAPHYLAXIS REACTION albuterol sulfate 90 mcg/actuation HFA aerosol inhaler 2 puff INHALATION PRN PRN (Reason: Wheezing) Patient Comments: inhale 2 puffs by mouth and INTO THE LUNGS every 4 hours if neede... (REFER TO PRESCRIPTION NOTES). trazodone 50 mg tablet 100 mg PO QHS Patient Comments: TAKE 1 OR 2 TABLETS BY MOUTH AT BEDTIME prazosin 1 mg capsule 1 mg PO DAILY naproxen [Naprosyn] 500 mg tablet 500 mg PO BID PRN (Reason: pain) Qty: 20 0RF metoclopramide HCl [Reglan] 10 mg tablet 10 mg PO Q6H PRN (Reason: nausea and vomiting) Qty: 14 0RF dicyclomine 20 mg tablet 20 mg PO TID 7 Days Qty: 21 0RF pantoprazole 40 mg tablet,delayed release (DR/EC) 40 mg PO BID Qty: 60 3RF carvedilol 12.5 mg tablet 12.5 mg PO BID Qty: 180 3RF Rx Instructions: must administer with a meal/food Primary Care Provider: Monica Patterson Referrals: Monica Patterson, [facility] [Primary Care Provider] - As Needed Disposition Disposition: Home, Self Care
[2023-07-16 07:22] LABS: Mucous, Urine 0 SEEN /hpf (<or=2+); Red Blood Cells-Urine 0 SEEN /hpf (0-5)
[2023-07-16 08:00] LABS: Color, Urine Yellow (Yellow); Glucose, Dipstick Normal (Normal); Ketone-Dipstick Negative (Negative); Leukocyte Esterase-Dipstick 25 /ul (Negative); Nitrite-Dipstick Negative (Negative); Occult Blood-Urine Negative /ul (Negative); Protein-Dipstick 15 mg/dl (Negative); Urine Bilirubin Dipstick Negative (Negative); Urine Clarity Sl. Cloudy (Clear); Urine Urobilinogen Normal (Normal)
[2023-07-16 08:08] LABS: Bacteria 1+ /hpf (None Seen); Squamous Epithelial Cells - UA 0-5 SEEN /hpf (5-10); White Blood Cells 0-5 SEEN /hpf (0-5)
[2023-07-16 08:30] LABS: Anion Gap 7 (5-15); BUN 5 mg/dL (7-18); BUN/Creat Ratio 6.5 RATIO (10-20); Calcium,Total 8.8 mg/dL (8.5-10.1); Chloride 110 mmol/L (98-107); Creatinine, Serum 0.76 mg/dL (0.55-1.02); EST Glomerular Filtration Rate 100 mL/min (>60); Est Glom Filt Rate - Afr Amer 121 mL/min (>60); Estimated Creatinine Clearance 117.64 ml/min; Glucose 92 mg/dL (74-106); Potassium 3.3 mmol/L (3.5-5.1); Sodium Level 139 mmol/L (136-145)
[2023-07-16 08:48] VITALS: BP 140/92; PULSE 71; RESP 16; TEMP 36.7; O2SAT 98
--- NOTE | 2023-07-16 08:49 | ED.RN ---
HAD DISCUSSION WITH PT THE NEED TO F/U WITH HER DR. DISCUSSED THE MULTIPLE VISITS WITH HER AND SHE RESPONDED APPROPRIATELY AND STATED SHE DOESN'T KNOW WHEN TO COME IN. STATES SHE SEES HER PCP MAYBE ONCE A YEARS. ENCOURAGED PT TO SEE HER PCP AND ACKNOWLEDGED MANY TIMES THEY DO SENT HER IN TO ER. PT STATED SHE APPRECIATED THIS CONVERSATION
== END 2023-07-16 08:59 | disposition home or self-care (01) ==
PROVIDERS: Emergency Provider Emergency Medicine; PCP Nurse Practitioner Family; Visit Provider Emergency Medicine
DX: I10 Essential (primary) hypertension (principal); F20.9 Schizophrenia, unspecified; R04.0 Epistaxis; R00.0 Tachycardia, unspecified; R07.9 Chest pain, unspecified; Z79.899 Other long term (current) drug therapy; F43.10 Post-traumatic stress disorder, unspecified; K21.9 Gastro-esophageal reflux disease without esophagitis; F42.9 Obsessive-compulsive disorder, unspecified; F32.A Depression, unspecified; F17.290 Nicotine dependence, other tobacco product, uncomplicated; R82.71 Bacteriuria
CPT/HCPCS: 36415; 80048; 81001; 87077; 87086; 87088; 87186; 99283; A4216

== ENCOUNTER 2023-08-05 00:56 | Emergency (ER) | payer MEDICAID, SELFPAY ==
[2023-08-05 00:58] VITALS: BP 132/84; PULSE 117; RESP 20; TEMP 36.6; O2SAT 100; BMI 27.6
--- NOTE | 2023-08-05 01:47 | EX.ED.DYSGE1 ---
HPI History of Present Illness Chief Complaint: General Illness Informant: patient and friend Narrative Narrative: Patient is a 23-year-old female with past medical history of bipolar disorder hypertension POTS and gastroparesis. Patient presents today with multiple complaints. The main complaint is that she took a Lions main gummy/supplement and after doing this she developed increasing abdominal pain and she also felt like she was having swelling to her face/mouth. She states she took some Benadryl and that the swelling seems improved but that her abdominal pain has persisted and secondary to this she comes in for evaluation. [facility] Medical History Anxiety Asthma Depression Diarrhea Endometriosis Gastroparesis GERD (gastroesophageal reflux disease) Migraine OCD (obsessive compulsive disorder) Pelvic pain POTS (postural orthostatic tachycardia syndrome) PTSD (post-traumatic stress disorder) Schizophrenia Smoker Tachycardia Upper abdominal pain Home Medications albuterol sulfate 90 mcg/actuation aerosol inhaler 2 puff inhalation PRN PRN Wheezing 06/14/21 [History Last Taken Unknown] epinephrine 0.3 mg/0.3 mL injection, auto-injector 1 mg IM PRN PRN Allergic Reaction 06/14/21 [History Last Taken Unknown] medroxyprogesterone 150 mg/mL intramuscular suspension (Depo-Provera) 150 mg IM .q10w 01/04/22 [History Last Taken Unknown] prazosin 1 mg capsule 1 mg PO DAILY PTSD 03/19/22 [History Last Taken Unknown] trazodone 50 mg tablet 100 mg PO QHS 03/19/22 [History Last Taken Unknown] pantoprazole 40 mg tablet,delayed release 40 mg PO BID #60 tabs 12/03/22 [Rx Last Taken Unknown] naproxen 500 mg tablet (Naprosyn) 500 mg PO BID PRN pain #20 tabs 12/18/22 [Rx Last Taken Unknown] aripiprazole 5 mg tablet 10 mg PO DAILY schizophrenia 01/16/23 [History Last Taken Unknown] fluoxetine 40 mg capsule 40 mg PO QHS depression 01/16/23 [History Last Taken Unknown] topiramate 100 mg tablet 100 mg PO QHS 01/16/23 [History Last Taken Unknown] topiramate 25 mg tablet 25 mg PO DAILY 01/16/23 [History Last Taken Unknown] carvedilol 12.5 mg tablet 12.5 mg PO BID #180 tabs 02/11/23 [Rx Last Taken Unknown] metoclopramide HCl 10 mg tablet (Reglan) 10 mg PO Q6H PRN nausea and vomiting #14 tabs 05/02/23 [Rx Last Taken Unknown] dicyclomine 20 mg tablet 20 mg PO TID 7 days #21 tabs 05/11/23 [Rx Last Taken Unknown] Allergy/AdvReac Type Severity Reaction Status Date / Time gabapentin Allergy Rash Verified 07/16/23 06:44 glycerin [From Nasal-Ease] Allergy Swelling Verified 07/16/23 06:44 methylcellulose Allergy Swelling Verified 07/16/23 06:44 [From Nasal-Ease] sertraline [From Zoloft] Allergy Anaphylaxis Verified 07/16/23 06:44 silicone Allergy Rash Verified 07/16/23 06:44 sodium chloride Allergy Swelling Verified 07/16/23 06:44 [From Nasal-Ease] zinc [From Nasal-Ease] Allergy Swelling Verified 07/16/23 06:44 lactose AdvReac Upset Verified 07/16/23 06:44 Stomach Family History Father Anxiety Depression Asthma Hypertension Mother Asthma Diabetes Anxiety Depression CAD (coronary artery disease) Myocardial infarction, Onset Age: 42 Brother Oleksandr-Danlos syndrome Grandmother Myocardial infarction, Onset Age: 41 Grandfather Myocardial infarction, Onset Age: 38 Surgical History History of colonoscopy History of esophagogastroduodenoscopy (EGD) Hx of laparoscopy Social History household members: none Smoking Status: Current every day smoker tobacco type: e-cigarettes alcohol intake: current alcohol intake frequency: holidays/special occasions only substance use type: does not use caffeine: Yes Type: carbonated beverages, coffee and tea ROS ROS ED Constitutional Constitutional ED: Denies chills or fever(s) Eyes Eyes: Denies change in vision ENT ENT ED: Reports other Details: Positive facial swelling ; Denies sore throat Cardiovascular Cardiovascular: Denies chest pain Respiratory/Chest Respiratory/Chest: Denies cough or dyspnea Gastrointestinal Gastrointestinal: Reports abdominal pain and nausea; Denies diarrhea or vomiting Genitourinary Genitourinary ED: Denies dysuria or hematuria Musculoskeletal Musculoskeletal: Denies myalgias Integumentary Denies rash Neurologic Neurologic: Denies headache(s) Hematologic/Lymphatic Hematologic/Lymphatic: Denies easy bleeding or easy bruising EXAM Physical Exam Const Vital Signs: 08/05/23 00:58 08/05/23 01:03 Temperature 97.8 F Temperature Source Temporal Pulse Rate 117 H Respiratory Rate 20 H Respiratory Effort Normal Non-Labored Respiratory Pattern Normal Blood Pressure 132/84 H Blood Pressure Mean 100 Pulse Ox 100 Oxygen Delivery Method Room Air Positive well nourished and well developed General Appearance ED: well developed; Negative for pallor HEENT Reports dry mucous membranes HEENT Narrative: Mucous membranes are dry and tacky No tongue or lip swelling noted no oral lesions no airway edema or compromise No secondary changes in the posterior pharynx to suggest infection Mouth ED: Yes dry mucous membranes Mouth: dry mucous membranes Eyes PERRL and EOMs intact bilaterally General Eye ED: Negative for pale conjunctiva or scleral icterus Neck supple Neck Narrative: No nuchal rigidity or meningeal signs Resp normal respiratory effort and clear to auscultation bilaterally Resp Narrative: No nasal flaring retractions tachypnea or accessory muscle use Cardio regular rhythm Rate: tachycardic and other Other Details: Slightly tachycardic rate with regular rhythm Radial and carotid pulses are equal and symmetric GI non-distended and no masses GI Narrative: Abdomen is soft and nondistended with normal active bowel sounds. There is mild diffuse pain with palpation without voluntary guarding or rigidity or pulsatile mass. No fluid wave noted Auscultation: normoactive bowel sounds Palpation: soft Extremity normal to inspection Extremity Narrative: No asymmetric edema no pitting edema negative Homans' sign bilaterally Neuro oriented x3, CN's II-XII intact bilaterally and no sensory deficits noted Sensorium / Orientation: alert Motor Exam: strength 5/5 throughout Psych Psych Narrative: Patient has a flat affect Skin no rashes or lesions noted, no wounds and skin turgor normal General Skin Exam: Negative for jaundice or pallor MDM MDM MDM Narrative Medical decision making narrative: Patient arrived to the ER in no acute respiratory distress and overall vitals were stable. She reported multiple symptoms with worsening of her abdominal pain after taking the Lions main and also reported facial swelling which seemed to improve after Benadryl. Lions main is known to cause gastric upset and some people and therefore I feel that her worsening abdominal discomfort is related to her underlying chronic abdominal pain exacerbated by the Lions main supplement. Chart review reveals that potential allergic reaction is common but the patient at this time does not have tongue swelling lip swelling or signs of respiratory distress. She is already taken Benadryl but in order to complete the allergic reaction cocktail she will be given Pepcid and Solu-Medrol. With potential for damage to the liver/hepatic toxicity with the supplement basic laboratory studies were obtained which revealed mild hypokalemia but otherwise no clinically significant findings. Patient was reevaluated after treatment with IV fluids Toradol Pepcid and Solu-Medrol and did have moderate improvement of her symptoms/pain and no progression to respiratory distress. Therefore this time I do not feel there is need for further evaluation or workup in the ER as she remains in no acute respiratory distress and overall labs revealed no signs of hepatotoxicity or pancreatitis. History & Record Review Discussion w/independent historian: Patient and Friend Lab Data Attestation: I reviewed the patient's lab results. Labs: Laboratory Results - last 24 hr 08/05/23 01:59 Sodium 140 Potassium 3.0 L Chloride 109 H Carbon Dioxide 24.0 Anion Gap 7 BUN 5 L Creatinine 0.76 Estim Creat Clear Calc 113.83 Est GFR (MDRD) Af Amer 121 Est GFR (MDRD) Non-Af 100 BUN/Creatinine Ratio 6.5 L Glucose 96 Calcium 8.7 Total Bilirubin 0.30 Direct Bilirubin 0.08 AST 12 L ALT 14 Alkaline Phosphatase 75 Total Protein 7.3 Albumin 3.3 Globulin 4.0 Lipase 20 Serum , Qual NEGATIVE Discharge Plan Triage Chief Complaint: General Illness ED Provider: Bryant Reyes Dx/Rx/DC Orders Clinical Impression: Nonspecific abdominal pain, Allergic reaction, Bipolar disorder, Hypokalemia Instructions: Abdominal Pain, Allergy Overview Prescriptions: No Action topiramate 100 mg tablet 100 mg PO QHS Rx Instructions: give with 25 mg tablet to = 125 mg medroxyprogesterone [Depo-Provera] 150 mg/mL suspension 150 mg IM .q10w Patient Comments: INJECT 1ML INTRAMUSCULARILY EVERY 12 WEEKS aripiprazole 5 mg tablet 10 mg PO DAILY fluoxetine 40 mg capsule 40 mg PO QHS topiramate 25 mg tablet 25 mg PO DAILY Patient Comments: take 1 tablet by mouth at bedtime Rx Instructions: give with 100 mg tablet to = 125 mg epinephrine 0.3 mg/0.3 mL auto-injector 1 mg IM PRN PRN (Reason: Allergic Reaction) Patient Comments: INJECT INTO THE MUSCLE NEEDED FOR ANAPHYLAXIS REACTION albuterol sulfate 90 mcg/actuation HFA aerosol inhaler 2 puff INHALATION PRN PRN (Reason: Wheezing) Patient Comments: inhale 2 puffs by mouth and INTO THE LUNGS every 4 hours if neede... (REFER TO PRESCRIPTION NOTES). trazodone 50 mg tablet 100 mg PO QHS Patient Comments: TAKE 1 OR 2 TABLETS BY MOUTH AT BEDTIME prazosin 1 mg capsule 1 mg PO DAILY naproxen [Naprosyn] 500 mg tablet 500 mg PO BID PRN (Reason: pain) Qty: 20 0RF metoclopramide HCl [Reglan] 10 mg tablet 10 mg PO Q6H PRN (Reason: nausea and vomiting) Qty: 14 0RF dicyclomine 20 mg tablet 20 mg PO TID 7 Days Qty: 21 0RF pantoprazole 40 mg tablet,delayed release (DR/EC) 40 mg PO BID Qty: 60 3RF carvedilol 12.5 mg tablet 12.5 mg PO BID Qty: 180 3RF Rx Instructions: must administer with a meal/food Primary Care Provider: Monica Patterson Referrals: Monica Pattesron RECONCILIATION COORDINATOR-C [Primary Care Provider] - Disposition Disposition: Home, Self Care
[2023-08-05] MEDS: MethylPREDNISolone 125 MG/2 ML Vial IV (01:57)
[2023-08-05] MEDS: Famotidine 200 MG/20 ML MDV 20 MG in 0.9% Normal Saline (Pres. free 8 ML 300 MG IV (01:57)
[2023-08-05] MEDS: Ketorolac 30 MG/ML Syringe IV (01:57)
[2023-08-05] MEDS: 0.9% Normal Saline (1000mL) 1,000 ML 999 ML IV (01:59)
[2023-08-05 02:18] LABS: Internal QC Validated? YES +Cl - CLEAR BKGD; Pregnancy, Serum, hCG Quali. NEGATIVE Negative
[2023-08-05 02:34] LABS: AST(SGOT) 12 U/L (15-37); Alanine Aminotransfer ALT/SGPT 14 U/L (13-56); Albumin, Serum 3.3 g/dL (3.2-5.0); Alkaline Phosphatase 75 U/L (45-117); Anion Gap 7 (5-15); BUN 5 mg/dL (7-18); BUN/Creat Ratio 6.5 RATIO (10-20); Bilirubin, Direct 0.08 mg/dL (0.00-0.30); Calcium,Total 8.7 mg/dL (8.5-10.1); Chloride 109 mmol/L (98-107); Creatinine, Serum 0.76 mg/dL (0.55-1.02); EST Glomerular Filtration Rate 100 mL/min (>60); Est Glom Filt Rate - Afr Amer 121 mL/min (>60); Estimated Creatinine Clearance 113.83 ml/min; Glucose 96 mg/dL (74-106); Lipase 20 U/L (13-75); Protein, Total 7.3 g/dL (6.4-8.2); Sodium Level 140 mmol/L (136-145)
[2023-08-05 02:57] VITALS: BP 125/90; PULSE 91; RESP 18; O2SAT 100
[2023-08-05 03:15] VITALS: BP 127/89; PULSE 85; RESP 16; TEMP 36.4; O2SAT 100
== END 2023-08-05 03:37 | disposition home or self-care (01) ==
PROVIDERS: Emergency Provider Emergency Medicine; PCP Nurse Practitioner Family; Visit Provider Emergency Medicine
DX: T50.995A Adverse effect of other drugs, medicaments and biological substances, initial encounter (principal); F20.9 Schizophrenia, unspecified; F31.9 Bipolar disorder, unspecified; E87.6 Hypokalemia; R10.9 Unspecified abdominal pain; I10 Essential (primary) hypertension; F43.10 Post-traumatic stress disorder, unspecified; K21.9 Gastro-esophageal reflux disease without esophagitis; Z79.899 Other long term (current) drug therapy; F17.290 Nicotine dependence, other tobacco product, uncomplicated
CPT/HCPCS: 80048; 80076; 83690; 84703; 96365; 96375; 99283; A4216; J3490

== ENCOUNTER 2023-08-09 22:47 | Emergency (ER) | payer MEDICAID, SELFPAY ==
[2023-08-09 22:47] VITALS: BP 139/90; PULSE 81; RESP 18; TEMP 36.5; O2SAT 100; BMI 27.7
--- NOTE | 2023-08-09 22:59 | EDS_ITS ---
HPI History of Present Illness Chief Complaint: Cold Sx Detail of Chief Complaint: Headache, sinus congestion, dizziness Informant: patient Narrative Narrative: Patient presents emergency department complaint of headache that became more se rosalva about an hour ago. Patient states that she has had a headache for about a month. She has had nasal congestion and sinus infection type symptoms for 2 months. She was on a round of Augmentin and was on prednisone. She had fever up to 101.7 yesterday. 3 days ago started getting some pain behind her right eye and she does have history of cluster headaches and migraines. Patient has a slight dry cough. She complains of urinary frequency. Patient states that she had a UTI recently but was taken off the antibiotics because she had a reaction to them. [facility] Medical History Anxiety Asthma Depression Diarrhea Endometriosis Gastroparesis GERD (gastroesophageal reflux disease) Migraine OCD (obsessive compulsive disorder) Pelvic pain POTS (postural orthostatic tachycardia syndrome) PTSD (post-traumatic stress disorder) Schizophrenia Smoker Tachycardia Upper abdominal pain Home Medications albuterol sulfate 90 mcg/actuation aerosol inhaler 2 puff inhalation PRN PRN Wheezing 06/14/21 [History Last Taken Unknown] epinephrine 0.3 mg/0.3 mL injection, auto-injector 1 mg IM PRN PRN Allergic Reaction 06/14/21 [History Last Taken Unknown] medroxyprogesterone 150 mg/mL intramuscular suspension (Depo-Provera) 150 mg IM .q10w 01/04/22 [History Last Taken Unknown] prazosin 1 mg capsule 1 mg PO DAILY PTSD 03/19/22 [History Last Taken Unknown] trazodone 50 mg tablet 100 mg PO QHS 03/19/22 [History Last Taken Unknown] pantoprazole 40 mg tablet,delayed release 40 mg PO BID #60 tabs 12/03/22 [Rx Last Taken Unknown] naproxen 500 mg tablet (Naprosyn) 500 mg PO BID PRN pain #20 tabs 12/18/22 [Rx Last Taken Unknown] aripiprazole 5 mg tablet 10 mg PO DAILY schizophrenia 01/16/23 [History Last Taken Unknown] fluoxetine 40 mg capsule 40 mg PO QHS depression 01/16/23 [History Last Taken Unknown] topiramate 100 mg tablet 100 mg PO QHS 01/16/23 [History Last Taken Unknown] topiramate 25 mg tablet 25 mg PO DAILY 01/16/23 [History Last Taken Unknown] carvedilol 12.5 mg tablet 12.5 mg PO BID #180 tabs 02/11/23 [Rx Last Taken Unknown] metoclopramide HCl 10 mg tablet (Reglan) 10 mg PO Q6H PRN nausea and vomiting #14 tabs 05/02/23 [Rx Last Taken Unknown] dicyclomine 20 mg tablet 20 mg PO TID 7 days #21 tabs 05/11/23 [Rx Last Taken Unknown] amoxicillin 875 mg-potassium clavulanate 125 mg tablet 875 mg (0.875 x 875-125 mg) PO Q12H #20 TABLETS 08/10/23 [Rx Last Taken Unknown] Allergy/AdvReac Type Severity Reaction Status Date / Time gabapentin Allergy Rash Verified 08/09/23 22:49 glycerin [From Nasal-Ease] Allergy Swelling Verified 08/09/23 22:49 methylcellulose Allergy Swelling Verified 08/09/23 22:49 [From Nasal-Ease] sertraline [From Zoloft] Allergy Anaphylaxis Verified 08/09/23 22:49 silicone Allergy Rash Verified 08/09/23 22:49 sodium chloride Allergy Swelling Verified 08/09/23 22:49 [From Nasal-Ease] zinc [From Nasal-Ease] Allergy Swelling Verified 08/09/23 22:49 lactose AdvReac Upset Verified 08/09/23 22:49 Stomach Family History Father Anxiety Depression Asthma Hypertension Mother Asthma Diabetes Anxiety Depression CAD (coronary artery disease) Myocardial infarction, Onset Age: 42 Brother Oleksandr-Danlos syndrome Grandmother Myocardial infarction, Onset Age: 41 Grandfather Myocardial infarction, Onset Age: 38 Surgical History History of colonoscopy History of esophagogastroduodenoscopy (EGD) Hx of laparoscopy Social History household members: none Smoking Status: Current every day smoker tobacco type: e-cigarettes alcohol intake: current alcohol intake frequency: holidays/special occasions only substance use type: does not use caffeine: Yes Type: carbonated beverages, coffee and tea ROS ROS ED Review of Systems ROS Unobtainable: other Constitutional Constitutional ED: Reports fever(s) and lethargy; Denies chills, sweats or weight loss Eyes Eyes: Denies blurry vision, change in vision or diplopia ENT ENT ED: Denies rhinorrhea or sore throat Cardiovascular Cardiovascular: Denies chest pain, orthopnea or racing heartbeat Respiratory/Chest Respiratory/Chest: Reports cough; Denies dyspnea, dyspnea on exertion, orthopnea or sputum Gastrointestinal Gastrointestinal: Denies abdominal pain, diarrhea, nausea or vomiting Genitourinary Genitourinary ED: Denies dysuria, hematuria or urinary frequency Musculoskeletal Musculoskeletal: Reports neck pain; Denies arthralgias, back pain or myalgias Integumentary Denies abscess, Abrasions or rash Neurologic Neurologic: Reports headache(s); Denies weakness Psychiatric Psychiatric: Denies anxiety, depression or suicidal thoughts Endocrine Endocrinology: Denies polydipsia, polyphagia or polyuria Hematologic/Lymphatic Hematologic/Lymphatic: Denies easy bleeding, easy bruising or lymphadenopathy Allergic/Immunologic Allergic/Immunologic ED: Denies mouth swelling, tongue swelling or urticaria EXAM Physical Exam Const Vital Signs: 08/09/23 22:47 08/09/23 22:54 Temperature 97.7 F L Temperature Source Temporal Pulse Rate 81 Respiratory Rate 18 Respiratory Effort Normal Respiratory Pattern Normal Blood Pressure 139/90 H Blood Pressure Mean 106 Pulse Ox 100 Oxygen Delivery Method Room Air Positive well nourished and well developed General Appearance ED: well developed and NAD HEENT Reports TM's clear and moist mucous membranes normocephalic and atraumatic; Negative for trauma or tenderness Tympanic Membrane ED: Yes TM's clear Eyes PERRL and EOMs intact bilaterally General Eye ED: Negative for pale conjunctiva or scleral icterus Neck no lymphadenopathy, supple and no JVD General: Negative for tenderness Chest Wall inspection of chest normal and palpation of chest normal Chest: Negative for tenderness Resp normal respiratory effort and clear to auscultation bilaterally Effort and Inspection: Negative for respiratory distress or pain with movement Auscultation: Negative for rhonchi, wheezes or diminished lung sounds Cardio regular rate, regular rhythm, S1 normal heart sound, S2 normal heart sound and no murmurs Peripheral Pulses: pulses 2+ throughout GI normal to inspection, nondistended, normoactive bowel sounds, soft to palpation, non-tender, non-distended and no masses Back/Spine no CVA tenderness and no thoracic nor lumbar tenderness Extremity normal to inspection General Extremety ED: Negative for edema General Extremity: Negative for edema Neuro oriented x3, CN's II-XII intact bilaterally, no sensory deficits noted and gait normal Sensorium / Orientation: awake, alert, oriented to person, oriented to place and oriented to time Motor Exam: strength 5/5 throughout and strength abnormal Psych mental status grossly normal Skin no rashes or lesions noted and no wounds MDM MDM MDM Narrative Medical decision making narrative: IV established on arrival. Patient was given a liter of ascitic fluid bolus and Reglan and Benadryl and Toradol. Her headache mostly resolved. CBC with differential white count 7.1 with hemoglobin 12.7 and platelet count of 516. Chemistries unremarkable. She did have slightly depressed potassium at 3.0 for which I did give her 40 mEq of potassium chloride p.o. Urinalysis was normal. CT scan of the brain was obtained given her complaint of sinus issues for 2 months. This was read by radiology as worsening left paranasal sinus disease with area of increased density suspicious for possible fungal infection. Recommended nonemergent ENT follow-up. Patient does state that she has seen ENT here locally before. She is referred to Dr. Escoto for follow-up. I will start her on Augmentin until she can follow-up with ENT. Clinically she looks well and is nontoxic-appearing. No signs of meningitis. Lab Data Attestation: I reviewed the patient's lab results. Labs: Laboratory Results - last 24 hr 08/09/23 08/09/23 23:23 23:25 WBC 7.1 RBC 4.91 Hgb 12.7 Hct 37.5 MCV 76.4 L MCH 25.9 L MCHC 33.9 RDW Std Deviation 44.0 H RDW Coeff of Anoop 15.9 H Plt Count 516 H MPV 9.4 Immature Gran % (Auto) 0.300 Neut % (Auto) 59.0 Lymph % (Auto) 32.3 [place] % (Auto) 7.2 Eos % (Auto) 1.1 Baso % (Auto) 0.1 Absolute Neuts (auto) 4.2 Absolute Lymphs (auto) 2.28 Nucleated RBC % 0 Sodium 139 Potassium 3.0 L Chloride 111 H Carbon Dioxide 24.0 Anion Gap 4 L BUN 5 L Creatinine 0.79 Estim Creat Clear Calc 109.58 Est GFR (MDRD) Af Amer 116 Est GFR (MDRD) Non-Af 96 BUN/Creatinine Ratio 6.3 L Glucose 100 Calcium 8.8 Urine Color Yellow Urine Clarity Clear Urine pH 8.0 Ur Specific [place] 1.015 Urine Protein Negative Urine Glucose (UA) Normal Urine Ketones Negative Urine Occult Blood Negative Urine Nitrite Negative Urine Bilirubin Negative Urine Urobilinogen Normal Ur Leukocyte Esterase 25 H Urine RBC 0 SEEN Urine WBC 0 SEEN Ur Squamous Epith Cells 0 SEEN Urine Bacteria 0 SEEN Urine Mucus 0 SEEN Radiography Diagnostic Testing: Clinical Impression(s) from Imaging Studies Brain CT 08/09/23 23:35 IMPRESSION: 1. No acute intracranial pathology. 2. Worsening left paranasal sinus disease with areas of increased density suspicious for possible fungal infection. Consider nonemergent ENT consultation. Electronically Signed: Art Cancino DO at 0:07 EDT , Discharge Plan Triage Chief Complaint: Cold Sx ED Provider: Loree Funes Dx/Rx/DC Orders Clinical Impression: Headache, Sinusitis Instructions: ED, Migraine (Classical), ED Sinus Headache, ED Sinusitis (Antibiotic Treatment) Prescriptions: New amoxicillin-pot clavulanate [amoxicillin-pot clavulanate] 875-125 mg tablet 875 mg PO Q12H Qty: 20 0RF No Action topiramate 100 mg tablet 100 mg PO QHS Rx Instructions: give with 25 mg tablet to = 125 mg medroxyprogesterone [Depo-Provera] 150 mg/mL suspension 150 mg IM .q10w Patient Comments: INJECT 1ML INTRAMUSCULARILY EVERY 12 WEEKS aripiprazole 5 mg tablet 10 mg PO DAILY fluoxetine 40 mg capsule 40 mg PO QHS topiramate 25 mg tablet 25 mg PO DAILY Patient Comments: take 1 tablet by mouth at bedtime Rx Instructions: give with 100 mg tablet to = 125 mg epinephrine 0.3 mg/0.3 mL auto-injector 1 mg IM PRN PRN (Reason: Allergic Reaction) Patient Comments: INJECT INTO THE MUSCLE NEEDED FOR ANAPHYLAXIS REACTION albuterol sulfate 90 mcg/actuation HFA aerosol inhaler 2 puff INHALATION PRN PRN (Reason: Wheezing) Patient Comments: inhale 2 puffs by mouth and INTO THE LUNGS every 4 hours if neede... (REFER TO PRESCRIPTION NOTES). trazodone 50 mg tablet 100 mg PO QHS Patient Comments: TAKE 1 OR 2 TABLETS BY MOUTH AT BEDTIME prazosin 1 mg capsule 1 mg PO DAILY naproxen [Naprosyn] 500 mg tablet 500 mg PO BID PRN (Reason: pain) Qty: 20 0RF metoclopramide HCl [Reglan] 10 mg tablet 10 mg PO Q6H PRN (Reason: nausea and vomiting) Qty: 14 0RF dicyclomine 20 mg tablet 20 mg PO TID 7 Days Qty: 21 0RF pantoprazole 40 mg tablet,delayed release (DR/EC) 40 mg PO BID Qty: 60 3RF carvedilol 12.5 mg tablet 12.5 mg PO BID Qty: 180 3RF Rx Instructions: must administer with a meal/food Primary Care Provider: Monica Patterson Referrals: Karthik Escoto MD [Med Staff - Active Staff] - 3-5 Days Monica Patterson SEGMENT BLOCK LAYER-C [Primary Care Provider] - Disposition Disposition: Home, Self Care
[2023-08-09] MEDS: 0.9% Normal Saline (1000mL) 1,000 ML 1000 ML IV (23:19)
[2023-08-09] MEDS: DiphenhydrAMINE 50 MG/ML Syringe 25 MG IV (23:20)
[2023-08-09] MEDS: Metoclopramide 10 MG/2 ML Vial IV (23:21)
[2023-08-09] MEDS: Ketorolac 30 MG/ML Syringe IV (23:21)
[2023-08-09 23:28] LABS: Bacteria 0 SEEN /hpf (None Seen); Mucous, Urine 0 SEEN /hpf (<or=2+); Red Blood Cells-Urine 0 SEEN /hpf (0-5); Squamous Epithelial Cells - UA 0 SEEN /hpf (5-10); White Blood Cells 0 SEEN /hpf (0-5)
[2023-08-09 23:33] LABS: Absolute Lymphocyte Count 2.28 X10^3/uL (0.83-4.51); Absolute Neutrophil Count 4.2 X10^3/uL (2.0-7.7); Basophil# 0.01 X10^3/uL; Basophil% 0.1 % (0-1); Eosinophil# 0.08 X10^3/uL; Eosinophils% 1.1 % (0-5); Hematocrit 37.5 % (37-47); Hemoglobin 12.7 g/dL (12.0-15.0); Lymphocyte # 2.28 X10^3/ul (0.83-4.51); Lymphocyte % 32.3 % (19-41); Mean Corp Hgb Conc 33.9 g/dL (32-36); Mean Corpuscular Hgb 25.9 pg (27.0-32.0); Mean Corpuscular Volume 76.4 fL (81-99); Mean Platelet Vol. 9.4 fl (6.2-12.0); Monocyte# 0.51 X10^3/uL; Monocyte% 7.2 % (0-10); NRBC Flagged by Analyzer 0 % (0-5); Neutrophil # 4.16 X10^3/uL (2.7-7.7); Platelet Count 516 K/mm3 (150-450); RBC Distribution Width CV 15.9 % (11.6-14.6); Red Blood Count 4.91 M/mm3 (4.2-5.4); White Blood Count 7.1 K/mm3 (4.4-11.0)
[2023-08-09 23:34] LABS: Color, Urine Yellow (Yellow); Glucose, Dipstick Normal (Normal); Ketone-Dipstick Negative (Negative); Leukocyte Esterase-Dipstick 25 /ul (Negative); Nitrite-Dipstick Negative (Negative); Occult Blood-Urine Negative /ul (Negative); Protein-Dipstick Negative (Negative); Specific Gravity, Urine 1.015 (1.002-1.030); Urine Bilirubin Dipstick Negative (Negative); Urine Clarity Clear (Clear); Urine Urobilinogen Normal (Normal)
--- NOTE | 2023-08-09 23:35 | CT_ITS ---
INDICATION: headache, sinus infection x 2months EXAMINATION: CT BRAIN - CT Head or Brain W/O Contrast Injection TECHNIQUE: Multiple axial images were obtained of the head without intravenous contrast. A radiation dose optimization technique was used for this scan. IV Contrast dosage and agent: None. COMPARISON: May 22, 2023 CT head and brain. FINDINGS: BRAIN PARENCHYMA: No intra- or extra-axial hemorrhage. No intracranial mass or mass effect. Deleon/white matter differentiation is maintained and there is no blurring of the basal ganglia. There is no hyperdense vessel. Posterior fossa structures are unremarkable. CSF SPACES: Appropriate for age. No hydrocephalus. Basal cisterns are patent. CALVARIUM, SKULL BASE, PARANASAL SINUSES AND MASTOID AIR CELLS: Intact calvarium and skull base. No fracture or osseous lesion. Interval resolution of right frontoethmoidal recess opacification. Persistent complete opacification left maxillary sinus extending into the infundibulum and hiatus semilunaris with much of the left ethmoid air cells opacified. There is extension into the left frontoethmoidal recess. There is of increased density within the opacified left maxillary sinus and ethmoid air cells can be indicative of fungal infection. Mastoid air cells and middle ears are clear. ORBITS: Both globes, extraocular muscles, optic nerves and retrobulbar fat appear unremarkable. ASPECTS Score for Acute Strokes: 10 CT/Brain/Head without Contrast IMPRESSION: 1. No acute intracranial pathology. 2. Worsening left paranasal sinus disease with areas of increased density suspicious for possible fungal infection. Consider nonemergent ENT consultation. Electronically Signed: Art Cancino DO at 0:07 EDT ,
[2023-08-09 23:47] LABS: Anion Gap 4 (5-15); BUN 5 mg/dL (7-18); BUN/Creat Ratio 6.3 RATIO (10-20); Calcium,Total 8.8 mg/dL (8.5-10.1); Chloride 111 mmol/L (98-107); Creatinine, Serum 0.79 mg/dL (0.55-1.02); EST Glomerular Filtration Rate 96 mL/min (>60); Est Glom Filt Rate - Afr Amer 116 mL/min (>60); Estimated Creatinine Clearance 109.58 ml/min; Glucose 100 mg/dL (74-106); Sodium Level 139 mmol/L (136-145)
[2023-08-10] MEDS: Potassium Chloride Oral Tablet 20 MEQ 40 MEQ PO (00:33)
[2023-08-10] MEDS: Amox/Clavulanate 875 MG Tablet PO (00:44)
[2023-08-10 00:45] VITALS: BP 126/80; PULSE 83; RESP 16; TEMP 36.2; O2SAT 100
== END 2023-08-10 00:50 | disposition home or self-care (01) ==
PROVIDERS: Emergency Provider Emergency Medicine; PCP Nurse Practitioner Family; Visit Provider Emergency Medicine
DX: J32.9 Chronic sinusitis, unspecified (principal); F20.9 Schizophrenia, unspecified; F43.10 Post-traumatic stress disorder, unspecified; K21.9 Gastro-esophageal reflux disease without esophagitis; F32.A Depression, unspecified; F17.290 Nicotine dependence, other tobacco product, uncomplicated; R51.9 Headache, unspecified; Z79.899 Other long term (current) drug therapy
CPT/HCPCS: 70450; 80048; 81001; 85025; 87631; 96361; 96374; 96375; 99283; A4216

== ENCOUNTER 2023-08-16 23:12 | Emergency (ER) | payer MEDICAID, SELFPAY ==
[2023-08-16 23:13] VITALS: BP 122/81; PULSE 71; RESP 15; TEMP 36.4; O2SAT 100; BMI 26.2
--- NOTE | 2023-08-16 23:18 | EDS_ITS ---
HPI History of Present Illness Chief Complaint: Cold Sx [facility] Medical History Anxiety Asthma Depression Diarrhea Endometriosis Gastroparesis GERD (gastroesophageal reflux disease) Migraine OCD (obsessive compulsive disorder) Pelvic pain POTS (postural orthostatic tachycardia syndrome) PTSD (post-traumatic stress disorder) Schizophrenia Smoker Tachycardia Upper abdominal pain Home Medications albuterol sulfate 90 mcg/actuation aerosol inhaler 2 puff inhalation PRN PRN Wheezing 06/14/21 [History Last Taken Unknown] epinephrine 0.3 mg/0.3 mL injection, auto-injector 1 mg IM PRN PRN Allergic Reaction 06/14/21 [History Last Taken Unknown] medroxyprogesterone 150 mg/mL intramuscular suspension (Depo-Provera) 150 mg IM .q10w 01/04/22 [History Last Taken Unknown] prazosin 1 mg capsule 1 mg PO DAILY PTSD 03/19/22 [History Last Taken Unknown] trazodone 50 mg tablet 100 mg PO QHS 03/19/22 [History Last Taken Unknown] pantoprazole 40 mg tablet,delayed release 40 mg PO BID #60 tabs 12/03/22 [Rx Last Taken Unknown] naproxen 500 mg tablet (Naprosyn) 500 mg PO BID PRN pain #20 tabs 12/18/22 [Rx Last Taken Unknown] aripiprazole 5 mg tablet 10 mg PO DAILY schizophrenia 01/16/23 [History Last Taken Unknown] fluoxetine 40 mg capsule 40 mg PO QHS depression 01/16/23 [History Last Taken Unknown] topiramate 100 mg tablet 100 mg PO QHS 01/16/23 [History Last Taken Unknown] topiramate 25 mg tablet 25 mg PO DAILY 01/16/23 [History Last Taken Unknown] carvedilol 12.5 mg tablet 12.5 mg PO BID #180 tabs 02/11/23 [Rx Last Taken Unknown] metoclopramide HCl 10 mg tablet (Reglan) 10 mg PO Q6H PRN nausea and vomiting #14 tabs 05/02/23 [Rx Last Taken Unknown] dicyclomine 20 mg tablet 20 mg PO TID 7 days #21 tabs 05/11/23 [Rx Last Taken Unknown] amoxicillin 875 mg-potassium clavulanate 125 mg tablet 875 mg (0.875 x 875-125 mg) PO Q12H #20 TABLETS 08/10/23 [Rx Last Taken Unknown] fluconazole 200 mg tablet 200 mg PO DAILY 7 days #7 tabs 08/16/23 [Rx Last Taken Unknown] promethazine 25 mg tablet 25 mg PO TID PRN nausea and vomiting #20 tabs 08/16/23 [Rx Last Taken Unknown] Allergy/AdvReac Type Severity Reaction Status Date / Time gabapentin Allergy Rash Verified 08/16/23 23:14 glycerin [From Nasal-Ease] Allergy Swelling Verified 08/16/23 23:14 methylcellulose Allergy Swelling Verified 08/16/23 23:14 [From Nasal-Ease] sertraline [From Zoloft] Allergy Anaphylaxis Verified 08/16/23 23:14 silicone Allergy Rash Verified 08/16/23 23:14 sodium chloride Allergy Swelling Verified 08/16/23 23:14 [From Nasal-Ease] zinc [From Nasal-Ease] Allergy Swelling Verified 08/16/23 23:14 lactose AdvReac Upset Verified 08/16/23 23:14 Stomach Family History Father Anxiety Depression Asthma Hypertension Mother Asthma Diabetes Anxiety Depression CAD (coronary artery disease) Myocardial infarction, Onset Age: 42 Brother Oleksandr-Danlos syndrome Grandmother Myocardial infarction, Onset Age: 41 Grandfather Myocardial infarction, Onset Age: 38 Surgical History History of colonoscopy History of esophagogastroduodenoscopy (EGD) Hx of laparoscopy Social History household members: none Smoking Status: Current every day smoker tobacco type: e-cigarettes alcohol intake: current alcohol intake frequency: holidays/special occasions only substance use type: does not use caffeine: Yes Type: carbonated beverages, coffee and tea EXAM Physical Exam Const Vital Signs: 08/16/23 23:13 Temperature 97.6 F L Temperature Source Temporal Pulse Rate 71 Respiratory Rate 15 Blood Pressure 122/81 H Blood Pressure Mean 94 Pulse Ox 100 Oxygen Delivery Method Room Air MDM MDM MDM Narrative Medical decision making narrative: HISTORY OF PRESENT ILLNESS: 23-year-old female presents with concern for sinus infection. Patient denies sudden onset or thunderclap headache, denies maximal intensity within 1 minute, vomiting, neck pain, stiffness, changes in vision, fever, history malignancy, syncope, or seizures associated with headache. REVIEW OF SYSTEMS: Pertinent positives: Sinus pressure, headache, nausea Pertinent negatives: Neck stiffness, fever, vomiting, focal numbness, weakness, loss sensation PHYSICAL EXAM: Nursing triage notes reviewed, Vital signs reviewed Constitutional: please see mdm HENT: MMM, noted sinus pressure, bilateral tympanic membranes bowens, no hyperemia, no signs of otitis externa, no mastoid tenderness Eyes: Pupils equal round and reactive to light, Extraocular muscles intact, Neck: No stridor, no JVD, full neck ROM Lungs: Clear to auscultation, No wheezing or rales. No increased work of breathing, no conversational dyspnea, no accessory muscle use, no nasal flaring. No respiratory distress noted Heart: Regular rate and rhythm, No murmurs, No rubs and No gallops, 2+ distal pulses (radial, femoral, posterior tibial) in all extremities Abdomen: Soft, there is no tenderness, rigidity, rebound or guarding, no obvious peritoneal signs, no palpable pulsatile abdominal masses, no auscultated abdominal bruit : No CVAT Extremities: No edema Neuro: No focal neurological deficits, cranial nerves II through XII intact, 5/5 strength in all extremities. Intact sensation to light touch in all extremities, 2+ reflexes bilateral patella tendons. Normal gait. No ataxia. No meningeal signs. Skin: No rash or lesions noted MEDICAL DECISION MAKING: Chief Complaint: Sinus pressure External records reviewed: Prior ED visit reviewed: Seen in the ED for headache sinus congestion on 08/09/2023. CT scan at this time showed concern for fungal infection. Factors affecting care: Gastroparesis, bipolar disorder, GERD Social determinants of health: History mental health disorder History obtained from others: none Consults: none [facility] Narrative: Patient was hemodynamically stable, afebrile and nontoxic-appearing. No focal neurologic deficits on exam. No obvious stigmata of HEENT infection. I considered the following differential diagnosis: Fungal versus bacterial sinusitis, cavernous sinus thrombosis, meningitis While I considered bacterial fungal meningitis patient has no meningeal sign she is nontoxic-appearing she is alert and orient x 3 has no focal deficits afebrile. Low clinical sufficient for meningitis at this time. Certainly the risk of lumbar puncture at this time seems higher than benefit diagnosis. Discussion of risk and benefit was discussed with the patient. She was alert and orient x 3 and had capacity to make her medical decisions and chose to forego lumbar puncture at this time. There are no focal neurologic deficits to suggest cavernous sinus thrombosis. Recommend the patient continue to take admit until course is complete. Will prescribe antifungal as well given report of fungal infection on CT Give strict return precautions and ENT follow-up instructions. Patient alerted me that her appointment is in 9 days. The patient and/or family, caregivers express understanding. The patient and/or family, caregivers agrees with the plan. Shared decision making: I will have a discussion with the patient and or visitors regarding risk/benefits of further testing or admission. They will be made aware of of the risk/benefits inherent in this decision they will be given the opportunity to voice understanding. Total critical care time today provided was at least 0 minutes. This excludes separately billable procedures. Critical care time (if documented) is secondary to the patient having high probability of clinically significant/life threatening deterioration in the patient's condition which required my urgent intervention. Impression: 1. Sinusitis 2. Nausea Dispo: Discharge This note was generated with [employer] dictation software. It may contain incorrect words, spelling, and punctuation that were not noted in review of the chart prior to signing. Discharge Plan Triage Chief Complaint: Cold Sx ED Provider: Benjamín Emanuel Dx/Rx/DC Orders Clinical Impression: Sinusitis Instructions: Causes of Sinusitis Prescriptions: New fluconazole 200 mg tablet 200 mg PO DAILY 7 Days Qty: 7 0RF promethazine 25 mg tablet 25 mg PO TID PRN (Reason: nausea and vomiting) Qty: 20 0RF No Action topiramate 100 mg tablet 100 mg PO QHS Rx Instructions: give with 25 mg tablet to = 125 mg medroxyprogesterone [Depo-Provera] 150 mg/mL suspension 150 mg IM .q10w Patient Comments: INJECT 1ML INTRAMUSCULARILY EVERY 12 WEEKS aripiprazole 5 mg tablet 10 mg PO DAILY fluoxetine 40 mg capsule 40 mg PO QHS topiramate 25 mg tablet 25 mg PO DAILY Patient Comments: take 1 tablet by mouth at bedtime Rx Instructions: give with 100 mg tablet to = 125 mg epinephrine 0.3 mg/0.3 mL auto-injector 1 mg IM PRN PRN (Reason: Allergic Reaction) Patient Comments: INJECT INTO THE MUSCLE NEEDED FOR ANAPHYLAXIS REACTION albuterol sulfate 90 mcg/actuation HFA aerosol inhaler 2 puff INHALATION PRN PRN (Reason: Wheezing) Patient Comments: inhale 2 puffs by mouth and INTO THE LUNGS every 4 hours if neede... (REFER TO PRESCRIPTION NOTES). trazodone 50 mg tablet 100 mg PO QHS Patient Comments: TAKE 1 OR 2 TABLETS BY MOUTH AT BEDTIME prazosin 1 mg capsule 1 mg PO DAILY naproxen [Naprosyn] 500 mg tablet 500 mg PO BID PRN (Reason: pain) Qty: 20 0RF metoclopramide HCl [Reglan] 10 mg tablet 10 mg PO Q6H PRN (Reason: nausea and vomiting) Qty: 14 0RF dicyclomine 20 mg tablet 20 mg PO TID 7 Days Qty: 21 0RF amoxicillin-pot clavulanate [amoxicillin-pot clavulanate] 875-125 mg tablet 875 mg PO Q12H Qty: 20 0RF pantoprazole 40 mg tablet,delayed release (DR/EC) 40 mg PO BID Qty: 60 3RF carvedilol 12.5 mg tablet 12.5 mg PO BID Qty: 180 3RF Rx Instructions: must administer with a meal/food Primary Care Provider: Monica Patterson Referrals: Karthik Escoto MD [Med Staff - Active Staff] - Activity Restrictions/Additional Instructions: Thank you for trusting us with your care today! Please take Tylenol (2 pills, 650 mg), ibuprofen (2 pills, 400 mg) every 6 hours as needed for pain and fever control. Please continue take Augmentin as prescribed. Please begin taking oral fluconazole (antifungal) for the next 7 days Please temporarily discontinue taking trazodone while on fluconazole. Please return to the emergency department if your symptoms change or worsen. Specifically develop trouble with your vision, if you lose consciousness, if you develop numbness weakness or loss of sensation Please follow with your primary care physician for further outpatient evaluation and management. Disposition Disposition: Home, Self Care
[2023-08-17] MEDS: proMETHazine 25 MG Tablet PO (00:14)
[2023-08-17] MEDS: Fluconazole 100 MG Tablet 200 MG PO (00:14)
== END 2023-08-17 00:20 | disposition home or self-care (01) ==
PROVIDERS: Emergency Provider Emergency Medicine; PCP Nurse Practitioner Family; Visit Provider Emergency Medicine
DX: J32.9 Chronic sinusitis, unspecified (principal); F20.9 Schizophrenia, unspecified; F31.9 Bipolar disorder, unspecified; K21.9 Gastro-esophageal reflux disease without esophagitis; R11.0 Nausea; F43.10 Post-traumatic stress disorder, unspecified; Z79.899 Other long term (current) drug therapy; F17.290 Nicotine dependence, other tobacco product, uncomplicated
CPT/HCPCS: 99282

== ENCOUNTER 2023-08-19 05:53 | Emergency (ER) | payer MEDICAID, SELFPAY ==
[2023-08-19 05:54] VITALS: BP 134/88; PULSE 108; RESP 20; TEMP 36.6; O2SAT 99; BMI 27.8
--- NOTE | 2023-08-19 06:07 | EKG12_ITS ---
Test Reason : DYSRHYTHMIA Blood Pressure : / mmHG Vent. Rate : 085 BPM Atrial Rate : 085 BPM P-R Int : 136 ms QRS Dur : 072 ms QT Int : 390 ms P-R-T Axes : 055 021 -08 degrees QTc Int : 464 ms Normal sinus rhythm Nonspecific T wave abnormality Prolonged QT Abnormal ECG Confirmed by Art Crump ([id number]), loan expeditor JOHANA ESCAMILLA ([id number]) on 08/20/2023 9:54:17 AM Referred By: Confirmed By:Art Crump
--- NOTE | 2023-08-19 06:08 | EX.ED.DYSGE1 ---
HPI History of Present Illness Chief Complaint: General Illness Narrative Narrative: 23-year-old female, well-known to the emergency department, presents with multiple somatic complaints. Her main ones are is that her heart rate went from 3200 and just a few seconds. She states she is also short of breath. She has history of POTS and tachycardia, bipolar disorder, and hypertension. She is seen by multiple physicians including gastroenterology, and cardiology. She states she followed up with them last week. She was recently seen in the emergency department and placed on antibiotics for a sinus infection. Her main concern is her heart rate and her reported shortness of breath. [facility] Medical History Anxiety Asthma Depression Diarrhea Endometriosis Gastroparesis GERD (gastroesophageal reflux disease) Migraine OCD (obsessive compulsive disorder) Pelvic pain POTS (postural orthostatic tachycardia syndrome) PTSD (post-traumatic stress disorder) Schizophrenia Smoker Tachycardia Upper abdominal pain Home Medications albuterol sulfate 90 mcg/actuation aerosol inhaler 2 puff inhalation PRN PRN Wheezing 06/14/21 [History Last Taken Unknown] epinephrine 0.3 mg/0.3 mL injection, auto-injector 1 mg IM PRN PRN Allergic Reaction 06/14/21 [History Last Taken Unknown] medroxyprogesterone 150 mg/mL intramuscular suspension (Depo-Provera) 150 mg IM .q10w 01/04/22 [History Last Taken Unknown] prazosin 1 mg capsule 1 mg PO DAILY PTSD 03/19/22 [History Last Taken Unknown] trazodone 50 mg tablet 100 mg PO QHS 03/19/22 [History Last Taken Unknown] pantoprazole 40 mg tablet,delayed release 40 mg PO BID #60 tabs 12/03/22 [Rx Last Taken Unknown] naproxen 500 mg tablet (Naprosyn) 500 mg PO BID PRN pain #20 tabs 12/18/22 [Rx Last Taken Unknown] aripiprazole 5 mg tablet 10 mg PO DAILY schizophrenia 01/16/23 [History Last Taken Unknown] fluoxetine 40 mg capsule 40 mg PO QHS depression 01/16/23 [History Last Taken Unknown] topiramate 100 mg tablet 100 mg PO QHS 01/16/23 [History Last Taken Unknown] topiramate 25 mg tablet 25 mg PO DAILY 01/16/23 [History Last Taken Unknown] carvedilol 12.5 mg tablet 12.5 mg PO BID #180 tabs 02/11/23 [Rx Last Taken Unknown] metoclopramide HCl 10 mg tablet (Reglan) 10 mg PO Q6H PRN nausea and vomiting #14 tabs 05/02/23 [Rx Last Taken Unknown] dicyclomine 20 mg tablet 20 mg PO TID 7 days #21 tabs 05/11/23 [Rx Last Taken Unknown] amoxicillin 875 mg-potassium clavulanate 125 mg tablet 875 mg (0.875 x 875-125 mg) PO Q12H #20 TABLETS 08/10/23 [Rx Last Taken Unknown] fluconazole 200 mg tablet 200 mg PO DAILY 7 days #7 tabs 08/16/23 [Rx Last Taken Unknown] promethazine 25 mg tablet 25 mg PO TID PRN nausea and vomiting #20 tabs 08/16/23 [Rx Last Taken Unknown] Allergy/AdvReac Type Severity Reaction Status Date / Time gabapentin Allergy Rash Verified 08/16/23 23:14 glycerin [From Nasal-Ease] Allergy Swelling Verified 08/16/23 23:14 methylcellulose Allergy Swelling Verified 08/16/23 23:14 [From Nasal-Ease] sertraline [From Zoloft] Allergy Anaphylaxis Verified 08/16/23 23:14 silicone Allergy Rash Verified 08/16/23 23:14 sodium chloride Allergy Swelling Verified 08/16/23 23:14 [From Nasal-Ease] zinc [From Nasal-Ease] Allergy Swelling Verified 08/16/23 23:14 lactose AdvReac Upset Verified 08/16/23 23:14 Stomach Family History Father Anxiety Depression Asthma Hypertension Mother Asthma Diabetes Anxiety Depression CAD (coronary artery disease) Myocardial infarction, Onset Age: 42 Brother Oleksandr-Danlos syndrome Grandmother Myocardial infarction, Onset Age: 41 Grandfather Myocardial infarction, Onset Age: 38 Surgical History History of colonoscopy History of esophagogastroduodenoscopy (EGD) Hx of laparoscopy Social History household members: none Smoking Status: Current every day smoker tobacco type: e-cigarettes alcohol intake: current alcohol intake frequency: holidays/special occasions only substance use type: does not use caffeine: Yes Type: carbonated beverages, coffee and tea ROS ROS ED ROS Narrative Constitutional: No fever, no chills. HEENT: No sore throat. No neck pain. No loss of vision. No rhinorrhea. Positive sinus pressure. Cardiovascular: No chest pain. Varying heart rate and palpitations. No pedal edema. Respiratory: No cough, positive shortness of breath. Abdominal: No abdominal pain. No nausea. No vomiting. Genitourinary: No dysuria. No hematuria. Musculoskeletal: No myalgias. No arthralgias. Neurologic: No headaches. No dizziness. No lightheadedness. Skin: No rash. No change in color. EXAM Physical Exam Narrative Exam Narrative: Afebrile. Vital signs noted. HEENT: Normocephalic. Atraumatic. PERRL, EOMI. Neck soft and supple. No point tenderness or step off. Cardiovascular: Intermittent tachycardia no murmurs, rubs, or gallops appreciated. Respiratory: No tachypnea. Lungs clear to auscultation bilaterally. Gastrointestinal: Abdomen soft, nontender, with normoactive bowel sounds. No rebound or guarding. Neurological: Awake. Alert. Nonfocal, nonlateralizing. Skin: No rash. Normal color. No pallor. Musculoskeletal: No pedal edema. Full range of motion extremities. Const Vital Signs: 08/19/23 05:54 08/19/23 05:59 08/19/23 07:16 Temperature 98 F 98.1 F Temperature Source Temporal Pulse Rate 108 H 72 Respiratory Rate 20 H 16 Respiratory Effort Non-Labored Short of Breath Respiratory Pattern Normal Blood Pressure 134/88 H 123/84 H Blood Pressure Mean 103 97 Pulse Ox 99 97 Oxygen Delivery Method Room Air MDM MDM MDM Narrative Medical decision making narrative: I do not feel that she requires laboratory work. I reviewed her prior records. She had multiple visits to the ED frequently per month with multiple somatic complaints. Regarding her heart rate, EKG will be obtained to rule out dysrhythmia. Chest x-ray in 1 view will be obtained to rule out pneumonia or pneumothorax. Her pulse ox is 100% on room air currently. She was reassured. In review of her prior ED visits and laboratories, she has had multiple workups for chest pain and pulmonary embolism. EKG obtained and interpreted by myself independently as normal sinus rhythm at 85 bpm without ectopy or acute ST changes. No STEMI. I do feel that a lot of her symptoms may be anxiety related. Chest x-ray 1 view interpreted by myself independently shows no evidence of pneumothorax or pneumonia. I do not feel that antibiotics are indicated. At this point in time, I feel she be discharged to follow-up with her multiple physicians. I do not feel that she has an emergent condition currently. Disposition is discharged home in stable condition. History & Record Review Discussion w/independent historian: Patient Radiography Chest X-Ray - ED: 1 View, Read by ED Physician, Normal and No Acute Disease Discharge Plan Triage Chief Complaint: General Illness ED Provider: Ron Gray Dx/Rx/DC Orders Clinical Impression: Shortness of breath, Heart rate problem Instructions: ED About Arrhythmias, ED Dyspnea Prescriptions: No Action topiramate 100 mg tablet 100 mg PO QHS Rx Instructions: give with 25 mg tablet to = 125 mg medroxyprogesterone [Depo-Provera] 150 mg/mL suspension 150 mg IM .q10w Patient Comments: INJECT 1ML INTRAMUSCULARILY EVERY 12 WEEKS aripiprazole 5 mg tablet 10 mg PO DAILY fluoxetine 40 mg capsule 40 mg PO QHS topiramate 25 mg tablet 25 mg PO DAILY Patient Comments: take 1 tablet by mouth at bedtime Rx Instructions: give with 100 mg tablet to = 125 mg epinephrine 0.3 mg/0.3 mL auto-injector 1 mg IM PRN PRN (Reason: Allergic Reaction) Patient Comments: INJECT INTO THE MUSCLE NEEDED FOR ANAPHYLAXIS REACTION albuterol sulfate 90 mcg/actuation HFA aerosol inhaler 2 puff INHALATION PRN PRN (Reason: Wheezing) Patient Comments: inhale 2 puffs by mouth and INTO THE LUNGS every 4 hours if neede... (REFER TO PRESCRIPTION NOTES). trazodone 50 mg tablet 100 mg PO QHS Patient Comments: TAKE 1 OR 2 TABLETS BY MOUTH AT BEDTIME prazosin 1 mg capsule 1 mg PO DAILY naproxen [Naprosyn] 500 mg tablet 500 mg PO BID PRN (Reason: pain) Qty: 20 0RF metoclopramide HCl [Reglan] 10 mg tablet 10 mg PO Q6H PRN (Reason: nausea and vomiting) Qty: 14 0RF dicyclomine 20 mg tablet 20 mg PO TID 7 Days Qty: 21 0RF amoxicillin-pot clavulanate [amoxicillin-pot clavulanate] 875-125 mg tablet 875 mg PO Q12H Qty: 20 0RF fluconazole 200 mg tablet 200 mg PO DAILY 7 Days Qty: 7 0RF promethazine 25 mg tablet 25 mg PO TID PRN (Reason: nausea and vomiting) Qty: 20 0RF pantoprazole 40 mg tablet,delayed release (DR/EC) 40 mg PO BID Qty: 60 3RF carvedilol 12.5 mg tablet 12.5 mg PO BID Qty: 180 3RF Rx Instructions: must administer with a meal/food Primary Care Provider: Monica Patterson Referrals: Monica Patterson, [employer]TR[employer]ION OPERATOR-[employer] [Primary Care Provider] - As soon as possible Disposition Disposition: Home, Self Care Discharge Date/Time: 08/19/23 07:16
--- NOTE | 2023-08-19 06:15 | RAD_ITS ---
STUDY: X-RAY CHEST REASON FOR EXAM: Female, 23 years old. Shortness of breath TECHNIQUE: Single AP portable view of the chest. COMPARISON: Comparison is made with prior study dated June 09, 2003. FINDINGS: The lungs are clear and expanded. There is no demonstrated pleural abnormality. Normal size heart. Normal mediastinum and dennis. Normal visualized pulmonary arteries. Normal visualized aortic arch and descending thoracic aorta. Normal visualized thoracic spine. Normal visualized ribs, clavicles, and shoulders. There is no demonstrated abnormality of the visualized soft tissue structures of the upper abdomen. RAD/Chest 1 View (Portable) IMPRESSION: Normal x-ray examination of the chest. Electronically Signed: Eugenio Weathers MD at 8:26 EDT ,
[2023-08-19 07:16] VITALS: BP 123/84; PULSE 72; RESP 16; TEMP 36.7; O2SAT 97
== END 2023-08-19 07:16 | disposition home or self-care (01) ==
PROVIDERS: Emergency Provider Emergency Medicine; PCP Nurse Practitioner Family; Visit Provider Emergency Medicine
DX: R00.9 Unspecified abnormalities of heart beat (principal); F20.9 Schizophrenia, unspecified; R06.02 Shortness of breath; I10 Essential (primary) hypertension; F43.10 Post-traumatic stress disorder, unspecified; K21.9 Gastro-esophageal reflux disease without esophagitis; F32.A Depression, unspecified; Z79.899 Other long term (current) drug therapy; F17.290 Nicotine dependence, other tobacco product, uncomplicated
CPT/HCPCS: 71045; 93005; 99282

== ENCOUNTER 2023-09-29 23:49 | Emergency (ER) | payer MEDICAID, SELFPAY ==
[2023-09-29 23:50] VITALS: BP 120/71; PULSE 94; RESP 18; TEMP 36.8; O2SAT 100; BMI 28.1
--- NOTE | 2023-09-30 00:20 | EX.ED.DYSGE1 ---
HPI History of Present Illness Chief Complaint: Abd Pain Informant: patient Narrative Narrative: 23-year-old female frequent visitor to this emergency department presenting with multiple complaints. While she does have left lower abdominal pain that has been present for over 3 months, she states the main reason for coming here tonight is that her fibromyalgia-related pain is getting worse and she is looking for relief. She states it is in her legs mostly, less in her forearms, and also throughout her entire back and neck which is now starting to give her a headache. She states she has been feeling very fatigued. She has chronic urinary symptoms that wax and wane, urgency, frequency, some dysuria and occasional urinary incontinence, that is present right now. She states the pain in her legs is not in the joints, it is burning on the bottom of her feet, pain throughout her feet, lower legs, and thighs not necessarily knees and ankles. No rashes. She denies any bowel incontinence or saddle anesthesia. No weakness or numbness in the legs. [facility] Medical History Anxiety Asthma Depression Diarrhea Endometriosis Gastroparesis GERD (gastroesophageal reflux disease) Migraine OCD (obsessive compulsive disorder) Pelvic pain POTS (postural orthostatic tachycardia syndrome) PTSD (post-traumatic stress disorder) Schizophrenia Smoker Tachycardia Upper abdominal pain Home Medications ?Medication ?Instructions ?Recorded ?Last Taken ?Type albuterol sulfate 90 mcg/actuation 2 puff inhalation PRN PRN Wheezing 06/14/21 Unknown History aerosol inhaler epinephrine 0.3 mg/0.3 mL 1 mg IM PRN PRN Allergic Reaction 06/14/21 Unknown History injection, auto-injector medroxyprogesterone 150 mg/mL 150 mg IM .q10w 01/04/22 Unknown History intramuscular suspension (Depo-Provera) prazosin 1 mg capsule 1 mg PO DAILY PTSD 03/19/22 Unknown History trazodone 50 mg tablet 100 mg PO QHS 03/19/22 Unknown History pantoprazole 40 mg tablet,delayed 40 mg PO BID #60 tabs 12/03/22 Unknown Rx release naproxen 500 mg tablet (Naprosyn) 500 mg PO BID PRN pain #20 tabs 12/18/22 Unknown Rx aripiprazole 5 mg tablet 10 mg PO DAILY schizophrenia 01/16/23 Unknown History fluoxetine 40 mg capsule 40 mg PO QHS depression 01/16/23 Unknown History topiramate 100 mg tablet 100 mg PO QHS 01/16/23 Unknown History topiramate 25 mg tablet 25 mg PO DAILY 01/16/23 Unknown History carvedilol 12.5 mg tablet 12.5 mg PO BID #180 tabs 02/11/23 Unknown Rx metoclopramide HCl 10 mg tablet 10 mg PO Q6H PRN nausea and 05/02/23 Unknown Rx (Reglan) vomiting #14 tabs dicyclomine 20 mg tablet 20 mg PO TID 7 days #21 tabs 05/11/23 Unknown Rx amoxicillin 875 mg-potassium 875 mg PO Q12H #20 TABLETS 08/10/23 Unknown Rx clavulanate 125 mg tablet fluconazole 200 mg tablet 200 mg PO DAILY 7 days #7 tabs 08/16/23 Unknown Rx promethazine 25 mg tablet 25 mg PO TID PRN nausea and 08/16/23 Unknown Rx vomiting #20 tabs Allergy/AdvReac Type Severity Reaction Status Date / Time gabapentin Allergy Rash Verified 09/29/23 23:52 glycerin (From Nasal-Ease) Allergy Swelling Verified 09/29/23 23:52 methylcellulose (From Allergy Swelling Verified 09/29/23 23:52 Nasal-Ease) sertraline (From Zoloft) Allergy Anaphylaxis Verified 09/29/23 23:52 silicone Allergy Rash Verified 09/29/23 23:52 sodium chloride (From Allergy Swelling Verified 09/29/23 23:52 Nasal-Ease) zinc (From Nasal-Ease) Allergy Swelling Verified 09/29/23 23:52 lactose AdvReac Upset Verified 09/29/23 23:52 Stomach Family History Father Anxiety Depression Asthma Hypertension Mother Asthma Diabetes Anxiety Depression CAD (coronary artery disease) Myocardial infarction, Onset Age: 42 Brother Oleksandr-Danlos syndrome Grandmother Myocardial infarction, Onset Age: 41 Grandfather Myocardial infarction, Onset Age: 38 Surgical History History of colonoscopy History of esophagogastroduodenoscopy (EGD) Hx of laparoscopy Social History household members: none Smoking Status: Current every day smoker tobacco type: e-cigarettes alcohol intake: current alcohol intake frequency: holidays/special occasions only substance use type: does not use caffeine: Yes Type: carbonated beverages, coffee and tea ROS ROS ED Constitutional Constitutional ED: Reports fatigue; Denies chills or fever(s) Eyes Eyes: Denies change in vision or diplopia ENT ENT ED: Denies rhinorrhea or sore throat Cardiovascular Cardiovascular: Denies chest pain or palpitations Respiratory/Chest Respiratory/Chest: Denies cough or dyspnea Gastrointestinal Gastrointestinal: Reports abdominal pain; Denies diarrhea, nausea or vomiting Genitourinary Genitourinary ED: Reports dysuria, urinary frequency, urinary incontinence and urinary urgency; Denies hematuria Musculoskeletal Musculoskeletal: Reports as per HPI, back pain, extremity pain and neck pain Integumentary Denies abscess or rash Neurologic Neurologic: Denies headache(s), paresthesias or weakness Psychiatric Psychiatric: Denies suicidal thoughts EXAM Physical Exam Const Vital Signs: 09/29/23 23:50 Temperature 98.2 F Temperature Source Temporal Pulse Rate 94 Respiratory Rate 18 Blood Pressure 120/71 Blood Pressure Mean 87 Pulse Ox 100 Oxygen Delivery Method Room Air Positive well nourished and well developed General Appearance ED: well developed and NAD HEENT Reports moist mucous membranes normocephalic and atraumatic Eyes PERRL and EOMs intact bilaterally Neck full ROM and supple Resp normal respiratory effort and clear to auscultation bilaterally Cardio regular rate, regular rhythm and no murmurs GI non-tender and non-distended GI Narrative: Examined by palpating with stethoscope, no objective tenderness and no rebound tenderness even in the left lower quadrant. Auscultation: normoactive bowel sounds Palpation: soft Back/Spine no CVA tenderness General Back: other FROM Extremity normal to inspection General Extremety ED: Negative for edema, pulses abnormal or tenderness General Extremity: Negative for edema or pulses abnormal Neuro oriented x3, CN's II-XII intact bilaterally, no sensory deficits noted, deep tendon reflexes 2+ bilaterally and gait normal Sensorium / Orientation: awake and alert Motor Exam: strength 5/5 throughout and clonus absent Plantar Reflex: Downgoing: bilateral Psych Psych Narrative: Flat affect. Poor eye contact. Skin no rashes or lesions noted and no wounds MDM MDM MDM Narrative Medical decision making narrative: Patient feeling very fatigued then has a history of hypokalemia on prior chemistry panels, so I salvatore a chemistry panel, but her potassium is normal and the rest of it is unremarkable, and given her urinary symptoms or any urinalysis but it does not show signs of acute infection and her test is negative. I do not think she needs advanced imaging of her abdomen/pelvis with regards to this postoperative pain, although the CT was considered. However, her vital signs are normal, her exam is fairly benign, and she has already seen her surgeon for this discomfort and is following with her at [facility]. I gave her a single [place] and a dose of Norflex here to see if that helps with her pain which is chronic. She will follow-up with her PCP, but I do not think she needs a prescription for any controlled substance and since this is all chronic and just worse. History & Record Review Additional record(s) reviewed:: Prior ED visit and Prior labs Lab Data Attestation: I reviewed the patient's lab results. Labs: Laboratory Results - last 24 hr 09/30/23 09/30/23 00:13 00:18 Sodium 141 Potassium 3.7 Chloride 115 H Carbon Dioxide 21.0 Anion Gap 5 BUN 9 Creatinine 0.88 Estim Creat Clear Calc 99.07 Est GFR (MDRD) Af Amer 103 Est GFR (MDRD) Non-Af 85 BUN/Creatinine Ratio 10.3 Glucose 113 H Calcium 8.7 Urine Color Yellow Urine Clarity Clear Urine pH 6.5 Ur Specific [place] 1.010 Urine Protein Negative Urine Glucose (UA) Normal Urine Ketones Negative Urine Occult Blood Negative Urine Nitrite Negative Urine Bilirubin Negative Urine Urobilinogen Normal Ur Leukocyte Esterase 25 H Urine RBC 0 SEEN Urine WBC 5-10 SEEN Ur Squamous Epith Cells 5-10 SEEN Urine Bacteria 0 SEEN Urine Mucus 0 SEEN Urine Test Negative Discharge Plan Triage Chief Complaint: Abd Pain ED Provider: Gus Richard Dx/Rx/DC Orders Clinical Impression: Diffuse pain, Chronic pelvic pain in female, Fibromyalgia Instructions: ED Fibromyalgia Prescriptions: No Action topiramate 100 mg tablet 100 mg PO QHS Rx Instructions: give with 25 mg tablet to = 125 mg medroxyprogesterone [Depo-Provera] 150 mg/mL suspension 150 mg IM .q10w Patient Comments: INJECT 1ML INTRAMUSCULARILY EVERY 12 WEEKS aripiprazole 5 mg tablet 10 mg PO DAILY fluoxetine 40 mg capsule 40 mg PO QHS topiramate 25 mg tablet 25 mg PO DAILY Patient Comments: take 1 tablet by mouth at bedtime Rx Instructions: give with 100 mg tablet to = 125 mg epinephrine 0.3 mg/0.3 mL auto-injector 1 mg IM PRN PRN (Reason: Allergic Reaction) Patient Comments: INJECT INTO THE MUSCLE NEEDED FOR ANAPHYLAXIS REACTION albuterol sulfate 90 mcg/actuation HFA aerosol inhaler 2 puff INHALATION PRN PRN (Reason: Wheezing) Patient Comments: inhale 2 puffs by mouth and INTO THE LUNGS every 4 hours if neede... (REFER TO PRESCRIPTION NOTES). trazodone 50 mg tablet 100 mg PO QHS Patient Comments: TAKE 1 OR 2 TABLETS BY MOUTH AT BEDTIME prazosin 1 mg capsule 1 mg PO DAILY naproxen [Naprosyn] 500 mg tablet 500 mg PO BID PRN (Reason: pain) Qty: 20 0RF metoclopramide HCl [Reglan] 10 mg tablet 10 mg PO Q6H PRN (Reason: nausea and vomiting) Qty: 14 0RF dicyclomine 20 mg tablet 20 mg PO TID 7 Days Qty: 21 0RF amoxicillin-pot clavulanate [amoxicillin-pot clavulanate] 875-125 mg tablet 875 mg PO Q12H Qty: 20 0RF fluconazole 200 mg tablet 200 mg PO DAILY 7 Days Qty: 7 0RF promethazine 25 mg tablet 25 mg PO TID PRN (Reason: nausea and vomiting) Qty: 20 0RF pantoprazole 40 mg tablet,delayed release (DR/EC) 40 mg PO BID Qty: 60 3RF carvedilol 12.5 mg tablet 12.5 mg PO BID Qty: 180 3RF Rx Instructions: must administer with a meal/food Primary Care Provider: Monica Patterson Referrals: Monica Patterson, [employer] [Primary Care Provider] - As soon as possible Print Language: Prydeinig Disposition Disposition: Home, Self Care
[2023-09-30] MEDS: Orphenadrine 60 MG/2 ML Ampul IM (00:27)
[2023-09-30] MEDS: HYDROcodone Bitartrate/Apap 5/325 Tablet PO (00:27)
[2023-09-30 00:40] LABS: Bacteria 0 SEEN /hpf (None Seen); Color, Urine Yellow (Yellow); Glucose, Dipstick Normal (Normal); Ketone-Dipstick Negative (Negative); Leukocyte Esterase-Dipstick 25 /ul (Negative); Mucous, Urine 0 SEEN /hpf (<or=2+); Nitrite-Dipstick Negative (Negative); Occult Blood-Urine Negative /ul (Negative); Protein-Dipstick Negative (Negative); Red Blood Cells-Urine 0 SEEN /hpf (0-5); Urine Bilirubin Dipstick Negative (Negative); Urine Clarity Clear (Clear); Urine Urobilinogen Normal (Normal); Urine pH 6.5 (5.0 - 8.0)
[2023-09-30 00:43] LABS: Internal QC Validated? YES +Cl - CLEAR BKGD; Pregnancy, Urine Negative Negative; Record Kit Lot#,Urine Preg 772476
[2023-09-30 00:50] LABS: Squamous Epithelial Cells - UA 5-10 SEEN /hpf (5-10); White Blood Cells 5-10 SEEN /hpf (0-5)
[2023-09-30 00:51] LABS: Anion Gap 5 (5-15); BUN 9 mg/dL (7-18); BUN/Creat Ratio 10.3 RATIO (10-20); Calcium,Total 8.7 mg/dL (8.5-10.1); Chloride 115 mmol/L (98-107); Creatinine, Serum 0.88 mg/dL (0.55-1.02); EST Glomerular Filtration Rate 85 mL/min (>60); Est Glom Filt Rate - Afr Amer 103 mL/min (>60); Estimated Creatinine Clearance 99.07 ml/min; Glucose 113 mg/dL (74-106); Potassium 3.7 mmol/L (3.5-5.1); Sodium Level 141 mmol/L (136-145)
[2023-09-30 01:05] VITALS: RESP 16
== END 2023-09-30 01:07 | disposition home or self-care (01) ==
LOC: ED 09-30 01:02
PROVIDERS: Emergency Provider Emergency Medicine; PCP Nurse Practitioner Family; Visit Provider Emergency Medicine
DX: R10.2 Pelvic and perineal pain (principal); F20.9 Schizophrenia, unspecified; G89.29 Other chronic pain; M79.661 Pain in right lower leg; R39.15 Urgency of urination; M79.662 Pain in left lower leg; Z82.5 Family history of asthma and other chronic lower respiratory diseases; M79.7 Fibromyalgia; M79.651 Pain in right thigh; R53.83 Other fatigue; R35.0 Frequency of micturition; M79.652 Pain in left thigh; R32 Unspecified urinary incontinence; J45.909 Unspecified asthma, uncomplicated; F41.9 Anxiety disorder, unspecified; F32.A Depression, unspecified; F42.9 Obsessive-compulsive disorder, unspecified; K21.9 Gastro-esophageal reflux disease without esophagitis; F17.210 Nicotine dependence, cigarettes, uncomplicated
CPT/HCPCS: 80048; 81001; 81025; 96372; 99283; A4216

== ENCOUNTER 2023-10-23 16:48 | Emergency (ER) | payer MEDICAID, SELFPAY ==
[2023-10-23 16:48] VITALS: BP 154/106; PULSE 88; RESP 17; TEMP 36; O2SAT 99; BMI 27.8
--- NOTE | 2023-10-23 18:00 | EX.ED.DYSGE1 ---
HPI History of Present Illness Chief Complaint: Edema Detail of Chief Complaint: Bruising on legs. Informant: patient Onset/Context/Timing Onset: Days and - (Started last .) Context: Gradual Onset Timing: Continuous Current Severity: Mild Maximum Severity: Mild Narrative Narrative: 43-year-old female history of PTSD, bipolar, anxiety, fibromyalgia and endometriosis and hypertension. States she developed atraumatic bruising on both her left and her right leg since last . Denies any fall injury or trauma. Denies being on any blood thinners. No history of DVT or PE risk factors. Prior similar symptoms: No Recent Illness/Hospitalization: No [facility] Medical History Smoker Gastroparesis Schizophrenia OCD (obsessive compulsive disorder) Tachycardia POTS (postural orthostatic tachycardia syndrome) Diarrhea PTSD (post-traumatic stress disorder) Upper abdominal pain GERD (gastroesophageal reflux disease) Endometriosis Pelvic pain Migraine Depression Asthma Anxiety Home Medications ?Medication ?Instructions ?Recorded ?Last Taken ?Type albuterol sulfate 90 mcg/actuation 2 puff inhalation PRN PRN Wheezing 06/14/21 Unknown History aerosol inhaler epinephrine 0.3 mg/0.3 mL 1 mg IM PRN PRN Allergic Reaction 06/14/21 Unknown History injection, auto-injector medroxyprogesterone 150 mg/mL 150 mg IM .q10w 01/04/22 Unknown History intramuscular suspension (Depo-Provera) prazosin 1 mg capsule 1 mg PO DAILY PTSD 03/19/22 Unknown History trazodone 50 mg tablet 100 mg PO QHS 03/19/22 Unknown History pantoprazole 40 mg tablet,delayed 40 mg PO BID #60 tabs 12/03/22 Unknown Rx release naproxen 500 mg tablet (Naprosyn) 500 mg PO BID PRN pain #20 tabs 12/18/22 Unknown Rx aripiprazole 5 mg tablet 10 mg PO DAILY schizophrenia 01/16/23 Unknown History fluoxetine 40 mg capsule 40 mg PO QHS depression 01/16/23 Unknown History topiramate 100 mg tablet 100 mg PO QHS 01/16/23 Unknown History topiramate 25 mg tablet 25 mg PO DAILY 01/16/23 Unknown History carvedilol 12.5 mg tablet 12.5 mg PO BID #180 tabs 02/11/23 Unknown Rx metoclopramide HCl 10 mg tablet 10 mg PO Q6H PRN nausea and 05/02/23 Unknown Rx (Reglan) vomiting #14 tabs dicyclomine 20 mg tablet 20 mg PO TID 7 days #21 tabs 05/11/23 Unknown Rx amoxicillin 875 mg-potassium 875 mg PO Q12H #20 TABLETS 08/10/23 Unknown Rx clavulanate 125 mg tablet fluconazole 200 mg tablet 200 mg PO DAILY 7 days #7 tabs 08/16/23 Unknown Rx promethazine 25 mg tablet 25 mg PO TID PRN nausea and 08/16/23 Unknown Rx vomiting #20 tabs Allergy/AdvReac Type Severity Reaction Status Date / Time gabapentin Allergy Rash Verified 10/23/23 16:48 glycerin (From Nasal-Ease) Allergy Swelling Verified 10/23/23 16:48 methylcellulose (From Allergy Swelling Verified 10/23/23 16:48 Nasal-Ease) sertraline (From Zoloft) Allergy Anaphylaxis Verified 10/23/23 16:48 silicone Allergy Rash Verified 10/23/23 16:48 sodium chloride (From Allergy Swelling Verified 10/23/23 16:48 Nasal-Ease) zinc (From Nasal-Ease) Allergy Swelling Verified 10/23/23 16:48 lactose AdvReac Upset Verified 10/23/23 16:48 Stomach Family History Father Anxiety Depression Asthma Hypertension Mother Asthma Diabetes Anxiety Depression CAD (coronary artery disease) Myocardial infarction, Onset Age: 42 Brother Oleksandr-Danlos syndrome Grandmother Myocardial infarction, Onset Age: 41 Grandfather Myocardial infarction, Onset Age: 38 Surgical History History of colonoscopy History of esophagogastroduodenoscopy (EGD) Hx of laparoscopy Social History household members: none Smoking Status: Current every day smoker tobacco type: e-cigarettes alcohol intake: current alcohol intake frequency: holidays/special occasions only substance use type: does not use caffeine: Yes Type: carbonated beverages, coffee and tea ROS ROS ED ROS Narrative denies any recent illness. She has had mild nausea and diarrhea. Review of Systems ROS Unobtainable: Denies due to encephalopathy Constitutional Constitutional ED: Denies chills or fever(s) Eyes Eyes: Denies blurry vision ENT ENT ED: Denies ear pain Cardiovascular Cardiovascular: Denies chest pain Respiratory/Chest Respiratory/Chest: Denies cough or dyspnea Gastrointestinal Gastrointestinal: Reports diarrhea and nausea; Denies abdominal pain, constipation, melena or vomiting Genitourinary Genitourinary ED: Denies dysuria or hematuria Musculoskeletal Musculoskeletal: Denies arthralgias Integumentary Denies abscess or Abrasions Neurologic Neurologic: Denies headache(s), paresthesias or weakness Psychiatric Psychiatric: Reports anxiety; Denies depression Endocrine Endocrinology: Denies cold intolerance Hematologic/Lymphatic Hematologic/Lymphatic: Reports none and easy bruising; Denies lymphadenopathy Allergic/Immunologic Allergic/Immunologic ED: Denies mouth swelling, tongue swelling or urticaria EXAM Physical Exam Narrative Exam Narrative: 21-year-old female no acute distress she is anxious. Vital signs are stable afebrile. Pulse ox 99% on room air no signs hypoxia. H EENT exam unremarkable. Moist extremities. Neck nontender no lymphadenopathy. Lungs clear to auscultation bilaterally. Heart regular rhythm rate about 90 no murmur. Chest wall and ribs nontender. Abdomen soft nondistended normal bowel sounds no peritoneal signs. Well-healed prior laparoscopic incisions. Moves all 4 extremities. She has bruising on anterior dominguez posterior hamstring right leg also. They look like traumatic bruises. She denies any trauma. There is no cords. There is no edema. Both upper and lower extremities are neurovascularly intact with good strength, range of motion and sensation. No edema. Back nontender. Neurologically she is awake alert with no focal motor deficits. Const Vital Signs: 10/23/23 16:48 10/23/23 16:48 Temperature 96.8 F L Temperature Source Temporal Pulse Rate 88 Respiratory Rate 17 Respiratory Pattern Normal Blood Pressure 154/106 H Blood Pressure Mean 122 Pulse Ox 99 Oxygen Delivery Method Room Air Positive well nourished and well developed; Negative for obese or unkempt General Appearance ED: well developed and NAD; Negative for unkempt, cyanotic, diaphoretic or pallor Nutritional Appearance: Negative for obese HEENT Reports moist mucous membranes Negative for trauma or tenderness Eyes PERRL and EOMs intact bilaterally General Eye ED: Negative for pale conjunctiva or scleral icterus Neck no lymphadenopathy, supple and no JVD General: Negative for tenderness Lymph Lymphatic: Negative for other Chest Wall inspection of chest normal and palpation of chest normal Chest: Negative for other Resp normal respiratory effort and clear to auscultation bilaterally Effort and Inspection: Negative for retractions Auscultation: Negative for rales, rhonchi, wheezes or diminished lung sounds Cardio regular rate, regular rhythm, S1 normal heart sound, S2 normal heart sound and no murmurs Palpation: Negative for palpable S3 or palpable S4 Rate: Negative for bradycardia or tachycardic Rhythm: Negative for abnormal rhythm GI normal to inspection, nondistended, normoactive bowel sounds, non-tender, non-distended and no masses Inspection: Negative for abdominal distention Auscultation: normoactive bowel sounds Palpation: soft; Negative for tender, guarding or rebound tenderness present Back/Spine no CVA tenderness General Back: Negative for CVA tenderness Cervical Spine: Negative for cervical spine tenderness Thoracic Spine / Upper Back: Negative for thoracic spinal tenderness or paraspinal muscle tenderness Lumbar Spine / Lower Back: Negative for lumbar spinal tenderness Extremity normal to inspection Extremity Narrative: Except for small bruises left anterior dominguez, left posterior hamstring, right lower leg. No cords. No edema. General Extremety ED: Yes tenderness; Negative for edema General Extremity: Negative for edema Neuro oriented x3 Sensorium / Orientation: alert; Negative for orientation impaired, lethargic or stuporous Motor Exam: strength 5/5 throughout; Negative for general weakness or strength abnormal Psych mental status grossly normal Appearance: Negative for unkempt Attitude: No agitated Mood & Affect: anxious; Negative for depressed or tearful Skin no rashes or lesions noted, no wounds and skin turgor normal General Skin Exam: Negative for jaundice or pallor Lesions: No lesion noted Rashes: No rashes noted Trauma: Negative for abrasion Wounds: Negative for wounds noted MDM MDM MDM Narrative Medical decision making narrative: 23-year-old female with reported atraumatic bruising on her lower legs. Exam otherwise is normal. She is anxious. Screening labs will be obtained. I do not think this is a blood clot. To both legs. There is no edema. It is obvious bruises on the anterior dominguez and other areas. I do not think she needs a noninvasive study. Repeat exam patient is doing well at 7:12 PM. We discharged home with outpatient follow-up. The bruising on her leg has gotten worse. History & Record Review Discussion w/independent historian: Patient Additional record(s) reviewed:: Prior inpatient record, Prior outpatient record, Prior ED visit and Prior labs Lab Data Attestation: I reviewed the patient's lab results. Lab results narrative: CBC shows a white normal white count 6. H&H 12 and 37. Platelets 389. PT and INR 13 and 1. Electrolytes shows a potassium of 3.3. Gap 3. Normal BUN and creatinine. Glucose 85. Liver enzymes normal. Labs: Laboratory Results - last 24 hr 10/23/23 18:08 WBC 6.6 RBC 5.07 Hgb 12.1 Hct 37.3 MCV 73.6 L MCH 23.9 L MCHC 32.4 RDW Std Deviation 39.0 RDW Coeff of Anoop 14.8 H Plt Count 389 MPV 8.7 Immature Gran % (Auto) 0.300 Neut % (Auto) 56.9 Lymph % (Auto) 36.0 Mora % (Auto) 5.6 Eos % (Auto) 0.9 Baso % (Auto) 0.3 Absolute Neuts (auto) 3.7 Absolute Lymphs (auto) 2.37 Nucleated RBC % 0 PT 13.9 INR 1.1 Sodium 138 Potassium 3.3 L Chloride 112 H Carbon Dioxide 23.0 Anion Gap 3 L BUN 8 Creatinine 0.79 Estim Creat Clear Calc 109.86 Est GFR (MDRD) Af Amer 116 Est GFR (MDRD) Non-Af 96 BUN/Creatinine Ratio 10.1 Glucose 85 Calcium 8.7 Total Bilirubin 0.20 AST 9 L ALT 18 Alkaline Phosphatase 85 Total Protein 7.4 Albumin 3.5 Globulin 3.9 Albumin/Globulin Ratio 0.9 Discharge Plan Triage Chief Complaint: Edema ED Provider: Ricco Bridges Dx/Rx/DC Orders Clinical Impression: Superficial bruising of lower leg, History of bipolar disorder Instructions: Bruises (Contusions) Prescriptions: No Action topiramate 100 mg tablet 100 mg PO QHS Rx Instructions: give with 25 mg tablet to = 125 mg medroxyprogesterone [Depo-Provera] 150 mg/mL suspension 150 mg IM .q10w Patient Comments: INJECT 1ML INTRAMUSCULARILY EVERY 12 WEEKS aripiprazole 5 mg tablet 10 mg PO DAILY fluoxetine 40 mg capsule 40 mg PO QHS topiramate 25 mg tablet 25 mg PO DAILY Patient Comments: take 1 tablet by mouth at bedtime Rx Instructions: give with 100 mg tablet to = 125 mg epinephrine 0.3 mg/0.3 mL auto-injector 1 mg IM PRN PRN (Reason: Allergic Reaction) Patient Comments: INJECT INTO THE MUSCLE NEEDED FOR ANAPHYLAXIS REACTION albuterol sulfate 90 mcg/actuation HFA aerosol inhaler 2 puff INHALATION PRN PRN (Reason: Wheezing) Patient Comments: inhale 2 puffs by mouth and INTO THE LUNGS every 4 hours if neede... (REFER TO PRESCRIPTION NOTES). trazodone 50 mg tablet 100 mg PO QHS Patient Comments: TAKE 1 OR 2 TABLETS BY MOUTH AT BEDTIME prazosin 1 mg capsule 1 mg PO DAILY naproxen [Naprosyn] 500 mg tablet 500 mg PO BID PRN (Reason: pain) Qty: 20 0RF metoclopramide HCl [Reglan] 10 mg tablet 10 mg PO Q6H PRN (Reason: nausea and vomiting) Qty: 14 0RF dicyclomine 20 mg tablet 20 mg PO TID 7 Days Qty: 21 0RF amoxicillin-pot clavulanate [amoxicillin-pot clavulanate] 875-125 mg tablet 875 mg PO Q12H Qty: 20 0RF fluconazole 200 mg tablet 200 mg PO DAILY 7 Days Qty: 7 0RF promethazine 25 mg tablet 25 mg PO TID PRN (Reason: nausea and vomiting) Qty: 20 0RF pantoprazole 40 mg tablet,delayed release (DR/EC) 40 mg PO BID Qty: 60 3RF carvedilol 12.5 mg tablet 12.5 mg PO BID Qty: 180 3RF Rx Instructions: must administer with a meal/food Primary Care Provider: Monica Patterson Referrals: Monica Patterson, [employer] [Primary Care Provider] - Activity Restrictions/Additional Instructions: Tylenol for pain. Ice or cool compresses to the bruises. This should get better. Follow-up with your doctor to ensure this is improving. If it gets a lot worse return. At this time your labs are unremarkable. Print Language: Danish Disposition Disposition: Home, Self Care
[2023-10-23 18:20] LABS: Absolute Lymphocyte Count 2.37 X10^3/uL (0.83-4.51); Absolute Neutrophil Count 3.7 X10^3/uL (2.0-7.7); Basophil# 0.02 X10^3/uL; Basophil% 0.3 % (0-1); Eosinophil# 0.06 X10^3/uL; Eosinophils% 0.9 % (0-5); Hematocrit 37.3 % (37-47); Hemoglobin 12.1 g/dL (12.0-15.0); Lymphocyte # 2.37 X10^3/ul (0.83-4.51); Mean Corp Hgb Conc 32.4 g/dL (32-36); Mean Corpuscular Hgb 23.9 pg (27.0-32.0); Mean Corpuscular Volume 73.6 fL (81-99); Mean Platelet Vol. 8.7 fl (6.2-12.0); Monocyte# 0.37 X10^3/uL; Monocyte% 5.6 % (0-10); NRBC Flagged by Analyzer 0 % (0-5); Neutrophil # 3.74 X10^3/uL (2.7-7.7); Neutrophil % 56.9 % (47-70); Platelet Count 389 K/mm3 (150-450); RBC Distribution Width CV 14.8 % (11.6-14.6); Red Blood Count 5.07 M/mm3 (4.2-5.4); White Blood Count 6.6 K/mm3 (4.4-11.0)
[2023-10-23 18:27] LABS: International Normalized Ratio 1.1; Prothrombin Time (Protime)PT. 13.9 SECONDS (11.7-14.9)
[2023-10-23 18:46] LABS: ALB/GLOB Ratio 0.9 RATIO (0.9-2.4); AST(SGOT) 9 U/L (15-37); Alanine Aminotransfer ALT/SGPT 18 U/L (13-56); Albumin, Serum 3.5 g/dL (3.2-5.0); Alkaline Phosphatase 85 U/L (45-117); Anion Gap 3 (5-15); BUN 8 mg/dL (7-18); BUN/Creat Ratio 10.1 RATIO (10-20); Calcium,Total 8.7 mg/dL (8.5-10.1); Chloride 112 mmol/L (98-107); Creatinine, Serum 0.79 mg/dL (0.55-1.02); EST Glomerular Filtration Rate 96 mL/min (>60); Est Glom Filt Rate - Afr Amer 116 mL/min (>60); Estimated Creatinine Clearance 109.86 ml/min; Globulin 3.9 g/dL (2.2-4.2); Glucose 85 mg/dL (74-106); Potassium 3.3 mmol/L (3.5-5.1); Protein, Total 7.4 g/dL (6.4-8.2); Sodium Level 138 mmol/L (136-145)
[2023-10-23 19:00] VITALS: BP 127/72; PULSE 75
[2023-10-23 19:22] VITALS: BP 120/78; PULSE 72; RESP 27; TEMP 36.4; O2SAT 100
== END 2023-10-23 19:23 | disposition home or self-care (01) ==
PROVIDERS: Emergency Provider Emergency Medicine; PCP Nurse Practitioner Family; Visit Provider Emergency Medicine
DX: S80.11XA Contusion of right lower leg, initial encounter (principal); F31.9 Bipolar disorder, unspecified; R60.9 Edema, unspecified; F17.290 Nicotine dependence, other tobacco product, uncomplicated; I10 Essential (primary) hypertension; F41.9 Anxiety disorder, unspecified; F43.10 Post-traumatic stress disorder, unspecified; M79.7 Fibromyalgia; N80.9 Endometriosis, unspecified; K21.9 Gastro-esophageal reflux disease without esophagitis; J45.909 Unspecified asthma, uncomplicated; Z79.899 Other long term (current) drug therapy; S80.12XA Contusion of left lower leg, initial encounter; X58.XXXA Exposure to other specified factors, initial encounter
CPT/HCPCS: 80053; 85025; 85610; 99283; A4216

== ENCOUNTER 2023-11-21 14:37 | Emergency (ER) | payer MEDICAID, SELFPAY ==
[2023-11-21 14:38] VITALS: BP 132/96; PULSE 87; RESP 19; TEMP 37.1; O2SAT 97; BMI 26.2
--- NOTE | 2023-11-21 15:42 | EX.ED.DYSGE1 ---
HPI History of Present Illness Chief Complaint: Headache Informant: patient Narrative Narrative: Patient is 23-year-old female with history of bipolar disorder, GERD, POTS, migraines and gastroparesis presenting with feeling of fogginess, insomnia, headache and twitching. Patient states she has not reliability sleep for the past 48 hours but states she has a history of insomnia. She did wake up around 1 PM today but noticed that her mouth felt swollen and her speech was different. States she feels like she is dry mouth. She is also complaining of headache that started on the left side of her head but is now more on the right side of her head. States it feels different than her migraines. States that she tried taking Aleve and caffeine for her symptoms with no relief. Notes that she did smoke THC product that she thinks might have been laced. Also thinks that she is dehydrated she has had decreased oral intake over the past few weeks because of her gastroparesis. Complain of chronic abdominal pain but denies any significant change in it today. Patient does report that she felt off yesterday. She does go on to tell me that she feels that she recently had a spiritual awakening. Patient tells me that people think she is manic however she does not feel like she is in a manic episode right now. She notes that she has been compliant with her medications for bipolar disorder. Denies any numbness or tingling. No other complaints or concerns reported at this time. [facility] Medical History Smoker Gastroparesis Schizophrenia OCD (obsessive compulsive disorder) Tachycardia POTS (postural orthostatic tachycardia syndrome) Diarrhea PTSD (post-traumatic stress disorder) Upper abdominal pain GERD (gastroesophageal reflux disease) Endometriosis Pelvic pain Migraine Depression Asthma Anxiety Home Medications ?Medication ?Instructions ?Recorded ?Last Taken ?Type albuterol sulfate 90 mcg/actuation 2 puff inhalation PRN PRN Wheezing 06/14/21 Unknown History aerosol inhaler epinephrine 0.3 mg/0.3 mL 1 mg IM PRN PRN Allergic Reaction 06/14/21 Unknown History injection, auto-injector medroxyprogesterone 150 mg/mL 150 mg IM .q10w 01/04/22 Unknown History intramuscular suspension (Depo-Provera) prazosin 1 mg capsule 1 mg PO DAILY PTSD 03/19/22 Unknown History trazodone 50 mg tablet 100 mg PO QHS 03/19/22 Unknown History pantoprazole 40 mg tablet,delayed 40 mg PO BID #60 tabs 12/03/22 Unknown Rx release naproxen 500 mg tablet (Naprosyn) 500 mg PO BID PRN pain #20 tabs 12/18/22 Unknown Rx aripiprazole 5 mg tablet 10 mg PO DAILY schizophrenia 01/16/23 Unknown History fluoxetine 40 mg capsule 40 mg PO QHS depression 01/16/23 Unknown History topiramate 100 mg tablet 100 mg PO QHS 01/16/23 Unknown History topiramate 25 mg tablet 25 mg PO DAILY 01/16/23 Unknown History carvedilol 12.5 mg tablet 12.5 mg PO BID #180 tabs 02/11/23 Unknown Rx metoclopramide HCl 10 mg tablet 10 mg PO Q6H PRN nausea and 05/02/23 Unknown Rx (Reglan) vomiting #14 tabs dicyclomine 20 mg tablet 20 mg PO TID 7 days #21 tabs 05/11/23 Unknown Rx amoxicillin 875 mg-potassium 875 mg PO Q12H #20 TABLETS 08/10/23 Unknown Rx clavulanate 125 mg tablet fluconazole 200 mg tablet 200 mg PO DAILY 7 days #7 tabs 08/16/23 Unknown Rx promethazine 25 mg tablet 25 mg PO TID PRN nausea and 08/16/23 Unknown Rx vomiting #20 tabs Allergy/AdvReac Type Severity Reaction Status Date / Time gabapentin Allergy Rash Verified 10/23/23 16:48 glycerin (From Nasal-Ease) Allergy Swelling Verified 10/23/23 16:48 methylcellulose (From Allergy Swelling Verified 10/23/23 16:48 Nasal-Ease) sertraline (From Zoloft) Allergy Anaphylaxis Verified 10/23/23 16:48 silicone Allergy Rash Verified 10/23/23 16:48 sodium chloride (From Allergy Swelling Verified 10/23/23 16:48 Nasal-Ease) zinc (From Nasal-Ease) Allergy Swelling Verified 10/23/23 16:48 lactose AdvReac Upset Verified 10/23/23 16:48 Stomach Family History Father Anxiety Depression Asthma Hypertension Mother Asthma Diabetes Anxiety Depression CAD (coronary artery disease) Myocardial infarction, Onset Age: 42 Brother Oleksandr-Danlos syndrome Grandmother Myocardial infarction, Onset Age: 41 Grandfather Myocardial infarction, Onset Age: 38 Surgical History History of colonoscopy History of esophagogastroduodenoscopy (EGD) Hx of laparoscopy Social History household members: none Smoking Status: Current every day smoker tobacco type: e-cigarettes alcohol intake: current alcohol intake frequency: holidays/special occasions only substance use type: does not use caffeine: Yes Type: carbonated beverages, coffee and tea ROS ROS ED Constitutional Constitutional ED: Denies chills or fever(s) Eyes Eyes: Reports other Details: mild photophobia ; Denies blurry vision ENT ENT ED: Reports other Details: dry mouth ; Denies sore throat Cardiovascular Cardiovascular: Denies chest pain Respiratory/Chest Respiratory/Chest: Denies cough or dyspnea Gastrointestinal Gastrointestinal: Reports abdominal pain and nausea; Denies melena or vomiting Genitourinary Genitourinary ED: Reports other Details: denies concern for ; Denies dysuria or urinary frequency Musculoskeletal Musculoskeletal: Denies arthralgias or myalgias Integumentary Denies rash Neurologic Neurologic: Reports headache(s) and other Details: twitching ; Denies paresthesias or weakness Psychiatric Psychiatric: Denies suicidal ideation or suicidal thoughts EXAM Physical Exam Const Vital Signs: 11/21/23 14:38 11/21/23 16:37 11/21/23 18:00 Temperature 98.7 F Temperature Source Temporal Pulse Rate 87 71 65 Respiratory Rate 19 H 18 17 Blood Pressure 132/96 H 110/76 Blood Pressure Mean 108 87 Pulse Ox 97 97 98 Oxygen Delivery Method Room Air Room Air Room Air 11/21/23 18:17 Temperature 97.2 F L Temperature Source Pulse Rate 62 Respiratory Rate 17 Blood Pressure 94/68 Blood Pressure Mean 76 Pulse Ox 98 Oxygen Delivery Method Neck supple Neck Narrative: No nuchal rigidity Chest Wall inspection of chest normal Resp normal respiratory effort and clear to auscultation bilaterally Cardio regular rate and regular rhythm GI normal to inspection, nondistended, normoactive bowel sounds and non-tender Extremity normal to inspection Neuro oriented x3 Neuro Narrative: No focal neurologic deficits appreciated. Intermittent twitching movements of the extremities more consistent with being internally stimulated Sensorium / Orientation: alert Motor Exam: Negative for general weakness Psych Psych Narrative: Calm, acting appropriate. Has excessive and tangential speech. Skin no rashes or lesions noted and no wounds MDM MDM MDM Narrative Medical decision making narrative: Patient is evaluated for difficulty sleeping, headache and feeling off. Has a fuzzy feeling in her head. Patient appears slightly internally stimulated and manic. She otherwise is acting appropriately however and I do not think is a threat to herself or others at this time. Her headache seems most consistent with tension headache/migraine. Patient is given IV fluids, Toradol and Haldol with improvement of her symptoms. Workup shows a mild anemia which patient has had a history of but normal white blood cell count. She is not have any fever or nuchal rigidity suspicion for meningitis. CMP largely normal. She does have a mildly elevated CPK at 374 but this is not high enough for rhabdomyolysis and his kidney function is normal. Urinalysis shows positive nitrites but no bacteria and no significant white blood cells. Will send for culture but do not think requires antibiotics at this time. Urine tox is positive for MDMA, cocaine and cannabis. I suspect her symptoms are associated with cocaine and stimulant use. Patient is improved on repeat evaluation. At this time can be discharged home. Is sleepy at first after receiving the Haldol and is monitored until return to baseline and then was discharged home. Patient encouraged abstain from any drug use and counseled to return to emergency room if she has worsening of any manic symptoms or thinks that she is getting to the point that she would require inpatient psychiatric care. Lab Data Attestation: I reviewed the patient's lab results. Labs: Laboratory Results - last 24 hr 11/21/23 15:40 WBC 5.6 RBC 4.83 Hgb 11.7 L Hct 36.2 L MCV 74.9 L MCH 24.2 L MCHC 32.3 RDW Std Deviation 38.2 RDW Coeff of Anoop 14.3 Plt Count 410 MPV 8.9 Immature Gran % (Auto) 0.200 Neut % (Auto) 52.3 Lymph % (Auto) 32.7 [place] % (Auto) 9.8 Eos % (Auto) 4.6 Baso % (Auto) 0.4 Absolute Neuts (auto) 2.9 Absolute Lymphs (auto) 1.83 Nucleated RBC % 0 Sodium 139 Potassium 3.6 Chloride 111 H Carbon Dioxide 24.0 Anion Gap 4 L BUN 5 L Creatinine 0.88 Estim Creat Clear Calc 95.77 Est GFR (MDRD) Af Amer 103 Est GFR (MDRD) Non-Af 85 BUN/Creatinine Ratio 5.7 L Glucose 84 Calcium 9.2 Total Bilirubin 0.30 AST 16 ALT 18 Alkaline Phosphatase 88 Total Creatine Kinase 374 H Total Protein 7.2 Albumin 3.3 Globulin 3.9 Albumin/Globulin Ratio 0.8 L Lipase 21 HCG, Quant < 1 Urine Color Yellow Urine Clarity Sl. Cloudy Urine pH 6.5 Ur Specific [place] 1.015 Urine Protein 30 H Urine Glucose (UA) Normal Urine Ketones 5 H Urine Occult Blood Negative Urine Nitrite Positive H Urine Bilirubin 1 H Urine Urobilinogen 1 H Ur Leukocyte Esterase 25 H Urine RBC 0-5 SEEN Urine WBC 0-5 SEEN Ur Squamous Epith Cells 0-5 SEEN Urine Bacteria 0 SEEN Urine Mucus 0 SEEN Urine Opiates Screen NEGATIVE Urine Methadone Screen NEGATIVE Ur Barbiturates Screen NEGATIVE Ur Phencyclidine Scrn NEGATIVE Ur Amphetamines Screen NEGATIVE MDMA (Ecstasy) Screen POSITIVE H U Benzodiazepines Scrn NEGATIVE Urine Cocaine Screen POSITIVE H U Cannabinoids Screen POSITIVE H Ur Drug Screen Comment Ethyl Alcohol 5.0 Discharge Plan Triage Chief Complaint: Headache ED Provider: Alondra Chi Dx/Rx/DC Orders Clinical Impression: Cocaine abuse, Headache Instructions: ED Cocaine And Crack Abuse, ED Headache Unspecified Prescriptions: No Action topiramate 100 mg tablet 100 mg PO QHS Rx Instructions: give with 25 mg tablet to = 125 mg medroxyprogesterone [Depo-Provera] 150 mg/mL suspension 150 mg IM .q10w Patient Comments: INJECT 1ML INTRAMUSCULARILY EVERY 12 WEEKS aripiprazole 5 mg tablet 10 mg PO DAILY fluoxetine 40 mg capsule 40 mg PO QHS topiramate 25 mg tablet 25 mg PO DAILY Patient Comments: take 1 tablet by mouth at bedtime Rx Instructions: give with 100 mg tablet to = 125 mg epinephrine 0.3 mg/0.3 mL auto-injector 1 mg IM PRN PRN (Reason: Allergic Reaction) Patient Comments: INJECT INTO THE MUSCLE NEEDED FOR ANAPHYLAXIS REACTION albuterol sulfate 90 mcg/actuation HFA aerosol inhaler 2 puff INHALATION PRN PRN (Reason: Wheezing) Patient Comments: inhale 2 puffs by mouth and INTO THE LUNGS every 4 hours if neede... (REFER TO PRESCRIPTION NOTES). trazodone 50 mg tablet 100 mg PO QHS Patient Comments: TAKE 1 OR 2 TABLETS BY MOUTH AT BEDTIME prazosin 1 mg capsule 1 mg PO DAILY naproxen [Naprosyn] 500 mg tablet 500 mg PO BID PRN (Reason: pain) Qty: 20 0RF metoclopramide HCl [Reglan] 10 mg tablet 10 mg PO Q6H PRN (Reason: nausea and vomiting) Qty: 14 0RF dicyclomine 20 mg tablet 20 mg PO TID 7 Days Qty: 21 0RF amoxicillin-pot clavulanate [amoxicillin-pot clavulanate] 875-125 mg tablet 875 mg PO Q12H Qty: 20 0RF fluconazole 200 mg tablet 200 mg PO DAILY 7 Days Qty: 7 0RF promethazine 25 mg tablet 25 mg PO TID PRN (Reason: nausea and vomiting) Qty: 20 0RF pantoprazole 40 mg tablet,delayed release (DR/EC) 40 mg PO BID Qty: 60 3RF carvedilol 12.5 mg tablet 12.5 mg PO BID Qty: 180 3RF Rx Instructions: must administer with a meal/food Primary Care Provider: Monica Patterson Referrals: Monica Patterson, [facility] [Primary Care Provider] - Print Language: Ugandan Disposition Disposition: Home, Self Care Discharge Date/Time: 11/21/23 19:58
[2023-11-21] MEDS: 0.9% Normal Saline (1000mL) 1,000 ML 1000 ML IV (15:49)
[2023-11-21] MEDS: Haloperidol Lactate 5 MG/ML Vial 2 MG IV (15:49)
[2023-11-21] MEDS: Ketorolac 15 MG/ML Vial IV (15:49)
[2023-11-21 15:55] LABS: Bacteria 0 SEEN /hpf (None Seen); Mucous, Urine 0 SEEN /hpf (<or=2+)
[2023-11-21 16:00] LABS: Absolute Lymphocyte Count 1.83 X10^3/uL (0.83-4.51); Absolute Neutrophil Count 2.9 X10^3/uL (2.0-7.7); Basophil# 0.02 X10^3/uL; Basophil% 0.4 % (0-1); Eosinophil# 0.26 X10^3/uL; Eosinophils% 4.6 % (0-5); Hematocrit 36.2 % (37-47); Hemoglobin 11.7 g/dL (12.0-15.0); Lymphocyte # 1.83 X10^3/ul (0.83-4.51); Lymphocyte % 32.7 % (19-41); Mean Corp Hgb Conc 32.3 g/dL (32-36); Mean Corpuscular Hgb 24.2 pg (27.0-32.0); Mean Corpuscular Volume 74.9 fL (81-99); Mean Platelet Vol. 8.9 fl (6.2-12.0); Monocyte# 0.55 X10^3/uL; Monocyte% 9.8 % (0-10); NRBC Flagged by Analyzer 0 % (0-5); Neutrophil # 2.93 X10^3/uL (2.7-7.7); Neutrophil % 52.3 % (47-70); Platelet Count 410 K/mm3 (150-450); RBC Distribution Width CV 14.3 % (11.6-14.6); RBC Distribution Width SD 38.2 fl (35.1-43.9); Red Blood Count 4.83 M/mm3 (4.2-5.4); White Blood Count 5.6 K/mm3 (4.4-11.0)
[2023-11-21 16:13] LABS: Color, Urine Yellow (Yellow); Glucose, Dipstick Normal (Normal); Ketone-Dipstick 5 mg/dl (Negative); Leukocyte Esterase-Dipstick 25 /ul (Negative); Nitrite-Dipstick Positive (Negative); Occult Blood-Urine Negative /ul (Negative); Protein-Dipstick 30 mg/dl (Negative); Specific Gravity, Urine 1.015 (1.002-1.030); Urine Clarity Sl. Cloudy (Clear); Urine Urobilinogen 1 mg/dl (Normal); Urine pH 6.5 (5.0 - 8.0)
[2023-11-21 16:17] LABS: Amphetamine Urine VISTA NEGATIVE (<1000 ng/mL); Barbiturate Urine VISTA NEGATIVE (< 200 ng/mL); Benzodiazepine Urine VISTA NEGATIVE (< 200 ng/mL); Cocaine Urine VISTA POSITIVE (< 300 ng/mL); Ecstacy Urine VISTA POSITIVE (< 500 ng/mL); Methadone Urine VISTA NEGATIVE (< 300 ng/mL); PCP Urine VISTA NEGATIVE (< 25 ng/mL); THC Urine VISTA POSITIVE (< 50 ng/mL); Vista UDS pH Range 6
[2023-11-21 16:19] LABS: Urine Bilirubin Dipstick 1 mg/dL (Negative)
[2023-11-21 16:21] LABS: hCG Titer Quant., Serum < 1 mIU/mL (1-3)
[2023-11-21 16:23] LABS: Red Blood Cells-Urine 0-5 SEEN /hpf (0-5); Squamous Epithelial Cells - UA 0-5 SEEN /hpf (5-10); White Blood Cells 0-5 SEEN /hpf (0-5)
[2023-11-21 16:24] LABS: ALB/GLOB Ratio 0.8 RATIO (0.9-2.4); AST(SGOT) 16 U/L (15-37); Alanine Aminotransfer ALT/SGPT 18 U/L (13-56); Albumin, Serum 3.3 g/dL (3.2-5.0); Alkaline Phosphatase 88 U/L (45-117); Anion Gap 4 (5-15); BUN 5 mg/dL (7-18); BUN/Creat Ratio 5.7 RATIO (10-20); CPK Total, Creatine Kinase 374 U/L (26-192); Calcium,Total 9.2 mg/dL (8.5-10.1); Chloride 111 mmol/L (98-107); Creatinine, Serum 0.88 mg/dL (0.55-1.02); EST Glomerular Filtration Rate 85 mL/min (>60); Est Glom Filt Rate - Afr Amer 103 mL/min (>60); Estimated Creatinine Clearance 95.77 ml/min; Globulin 3.9 g/dL (2.2-4.2); Glucose 84 mg/dL (74-106); Lipase 21 U/L (13-75); Potassium 3.6 mmol/L (3.5-5.1); Protein, Total 7.2 g/dL (6.4-8.2); Sodium Level 139 mmol/L (136-145)
[2023-11-21 16:37] VITALS: BP 110/76; PULSE 71; RESP 18; O2SAT 97
[2023-11-21 18:00] VITALS: PULSE 65; RESP 17; O2SAT 98
[2023-11-21 18:17] VITALS: BP 94/68; PULSE 62; RESP 17; TEMP 36.2; O2SAT 98
== END 2023-11-21 19:58 | disposition home or self-care (01) ==
PROVIDERS: Emergency Provider Emergency Medicine; PCP Nurse Practitioner Family; Visit Provider Emergency Medicine
DX: R51.9 Headache, unspecified (principal); F14.10 Cocaine abuse, uncomplicated; F31.9 Bipolar disorder, unspecified; F17.290 Nicotine dependence, other tobacco product, uncomplicated; Z79.899 Other long term (current) drug therapy
CPT/HCPCS: 80053; 80307; 81001; 82077; 82550; 83690; 84702; 85025; 87086; 87088; 96361; 96374; 96375; 99284; J7030; A4216

== ENCOUNTER 2023-11-27 05:54 | Emergency (ER) | payer MEDICAID, SELFPAY ==
[2023-11-27 05:55] VITALS: BP 142/89; PULSE 110; RESP 17; TEMP 36.8; O2SAT 100; BMI 27.1
[2023-11-27 05:59] VITALS: BP 130/89; PULSE 103; RESP 25; TEMP 36.8; O2SAT 100
--- NOTE | 2023-11-27 06:15 | RAD_ITS ---
INDICATION: DYSPNEA EXAMINATION/TECHNIQUE: X-RAY - XR Chest 2 Views COMPARISON: Jordana 2023. FINDINGS: LINES/DEVICES: None. LUNGS: No consolidation, edema or effusion. No pneumothorax. MEDIASTINUM AND CARDIOVASCULAR STRUCTURES: Cardiac silhouette not enlarged. BONES AND SOFT TISSUES: Unremarkable. RAD/Chest PA and Lateral IMPRESSION: No radiographic evidence of acute cardiopulmonary disease. Electronically Signed: Lisandro Rivas MD at 7:28 EDT ,
[2023-11-27] MEDS: 0.9% Normal Saline (1000mL) 1,000 ML 999 ML IV (06:27)
[2023-11-27 06:31] LABS: Absolute Lymphocyte Count 2.54 X10^3/uL (0.83-4.51); Absolute Neutrophil Count 4.2 X10^3/uL (2.0-7.7); Basophil# 0.02 X10^3/uL; Basophil% 0.3 % (0-1); Eosinophils% 1.4 % (0-5); Hematocrit 40.3 % (37-47); Hemoglobin 12.6 g/dL (12.0-15.0); Lymphocyte # 2.54 X10^3/ul (0.83-4.51); Lymphocyte % 34.4 % (19-41); Mean Corp Hgb Conc 31.3 g/dL (32-36); Mean Corpuscular Volume 76.9 fL (81-99); Monocyte# 0.48 X10^3/uL; Monocyte% 6.5 % (0-10); NRBC Flagged by Analyzer 0 % (0-5); Neutrophil # 4.23 X10^3/uL (2.7-7.7); Neutrophil % 57.1 % (47-70); Platelet Count 425 K/mm3 (150-450); RBC Distribution Width CV 14.4 % (11.6-14.6); RBC Distribution Width SD 39.8 fl (35.1-43.9); Red Blood Count 5.24 M/mm3 (4.2-5.4); White Blood Count 7.4 K/mm3 (4.4-11.0)
[2023-11-27 06:46] LABS: Amphetamine Urine VISTA NEGATIVE (<1000 ng/mL); Barbiturate Urine VISTA NEGATIVE (< 200 ng/mL); Benzodiazepine Urine VISTA NEGATIVE (< 200 ng/mL); Cocaine Urine VISTA POSITIVE (< 300 ng/mL); Ecstacy Urine VISTA NEGATIVE (< 500 ng/mL); Methadone Urine VISTA NEGATIVE (< 300 ng/mL); PCP Urine VISTA NEGATIVE (< 25 ng/mL); THC Urine VISTA POSITIVE (< 50 ng/mL); Vista UDS pH Range 7
[2023-11-27 07:05] LABS: Anion Gap 7 (5-15); BUN 4 mg/dL (7-18); BUN/Creat Ratio 4.8 RATIO (10-20); CPK Total, Creatine Kinase 88 U/L (26-192); Chloride 109 mmol/L (98-107); Creatinine, Serum 0.83 mg/dL (0.55-1.02); EST Glomerular Filtration Rate 90 mL/min (>60); Est Glom Filt Rate - Afr Amer 109 mL/min (>60); Estimated Creatinine Clearance 103.29 ml/min; Glucose 95 mg/dL (74-106); Magnesium 2.1 mg/dL (1.6-2.6); Potassium 3.6 mmol/L (3.5-5.1); Sodium Level 139 mmol/L (136-145)
--- NOTE | 2023-11-27 07:25 | EX.ED.DYSGE1 ---
HPI History of Present Illness Chief Complaint: General Illness Informant: patient Narrative Narrative: Patient is a 23-year-old female with past medical history of POTS bipolar disorder anxiety and depression schizophrenia and obsessive-compulsive disorder. She presents today with multiple complaints. She states she has intermittent bouts of jitteriness and tachycardia and overall sensation of feeling unwell. She was seen 6 days ago for similar complaints and found to be cocaine positive. Patient states that she does not do illicit drugs and that she only bought a vape that she is concerned is contaminated. However as she continues to feel unwell she presents for reevaluation [facility] Medical History Smoker Gastroparesis Schizophrenia OCD (obsessive compulsive disorder) Tachycardia POTS (postural orthostatic tachycardia syndrome) Diarrhea PTSD (post-traumatic stress disorder) Upper abdominal pain GERD (gastroesophageal reflux disease) Endometriosis Pelvic pain Migraine Depression Asthma Anxiety Home Medications ?Medication ?Instructions ?Recorded ?Last Taken ?Type albuterol sulfate 90 mcg/actuation 2 puff inhalation PRN PRN Wheezing 06/14/21 Unknown History aerosol inhaler medroxyprogesterone 150 mg/mL 150 mg IM .q10w 01/04/22 Unknown History intramuscular suspension (Depo-Provera) prazosin 1 mg capsule 1 mg PO DAILY PTSD 03/19/22 Unknown History trazodone 50 mg tablet 200 mg PO QHS 03/19/22 Unknown History pantoprazole 40 mg tablet,delayed 40 mg PO BID #60 tabs 12/03/22 Unknown Rx release aripiprazole 5 mg tablet 10 mg PO DAILY schizophrenia 01/16/23 Unknown History fluoxetine 40 mg capsule 40 mg PO QHS depression 01/16/23 Unknown History topiramate 100 mg tablet 100 mg PO QHS 01/16/23 Unknown History topiramate 25 mg tablet 25 mg PO DAILY 01/16/23 Unknown History carvedilol 12.5 mg tablet 12.5 mg PO BID #180 tabs 02/11/23 Unknown Rx melatonin 3 mg tablet 10 mg PO QHS PRN sleep 11/27/23 Unknown History Allergy/AdvReac Type Severity Reaction Status Date / Time gabapentin Allergy Rash Verified 11/27/23 06:01 glycerin (From Nasal-Ease) Allergy Swelling Verified 11/27/23 06:01 methylcellulose (From Allergy Swelling Verified 11/27/23 06:01 Nasal-Ease) sertraline (From Zoloft) Allergy Anaphylaxis Verified 11/27/23 06:01 silicone Allergy Rash Verified 11/27/23 06:01 sodium chloride (From Allergy Swelling Verified 11/27/23 06:01 Nasal-Ease) zinc (From Nasal-Ease) Allergy Swelling Verified 11/27/23 06:01 lactose AdvReac Upset Verified 11/27/23 06:01 Stomach Family History Father Anxiety Depression Asthma Hypertension Mother Asthma Diabetes Anxiety Depression CAD (coronary artery disease) Myocardial infarction, Onset Age: 42 Brother Oleksandr-Danlos syndrome Grandmother Myocardial infarction, Onset Age: 41 Grandfather Myocardial infarction, Onset Age: 38 Surgical History History of colonoscopy History of esophagogastroduodenoscopy (EGD) Hx of laparoscopy Social History household members: none Smoking Status: Current some day smoker tobacco type: e-cigarettes alcohol intake: current alcohol intake frequency: holidays/special occasions only substance use type: does not use caffeine: Yes Type: carbonated beverages, coffee and tea ROS ROS ED Constitutional Constitutional ED: Denies chills or fever(s) ENT ENT ED: Denies sore throat Cardiovascular Cardiovascular: Reports chest pain, palpitations and racing heartbeat Respiratory/Chest Respiratory/Chest: Denies cough or dyspnea Gastrointestinal Gastrointestinal: Reports nausea; Denies abdominal pain, diarrhea or vomiting Genitourinary Genitourinary ED: Denies dysuria Musculoskeletal Musculoskeletal: Denies myalgias Integumentary Denies rash Neurologic Neurologic: Reports headache(s) Psychiatric Psychiatric: Reports anxiety and depression; Denies suicidal ideation or suicidal thoughts Hematologic/Lymphatic Hematologic/Lymphatic: Denies easy bleeding or easy bruising EXAM Physical Exam Const Vital Signs: 11/27/23 08:05 11/27/23 08:08 Temperature 97.8 F 96.8 F L Temperature Source Temporal Pulse Rate 81 84 Respiratory Rate 16 19 H Blood Pressure 117/85 H 119/75 Blood Pressure Mean 95 89 Pulse Ox 97 100 Oxygen Delivery Method Room Air Positive well nourished and well developed General Appearance ED: well developed; Negative for pallor HEENT Reports moist mucous membranes HEENT Narrative: No tongue or lip swelling no oral lesions no airway edema or compromise No findings in the posterior pharynx to suggest infection Eyes PERRL and EOMs intact bilaterally General Eye ED: Negative for pale conjunctiva or scleral icterus Neck supple and no JVD Chest Wall palpation of chest normal Resp normal respiratory effort and clear to auscultation bilaterally Cardio regular rhythm Rate: tachycardic and other Other Details: Slightly tachycardic rate with regular rhythm Radial and carotid pulses are equal and symmetric GI normal to inspection, nondistended, normoactive bowel sounds, non-tender, non-distended and no masses Auscultation: normoactive bowel sounds Palpation: soft Extremity normal to inspection Extremity Narrative: No asymmetric edema no pitting edema negative Homans' sign bilaterally Neuro oriented x3, CN's II-XII intact bilaterally and no sensory deficits noted Sensorium / Orientation: alert Motor Exam: strength 5/5 throughout Psych Mood & Affect: anxious Skin no rashes or lesions noted General Skin Exam: Negative for jaundice or pallor MDM MDM MDM Narrative Medical decision making narrative: Patient arrived to the ER mildly tachycardic and hypertensive but otherwise with stable vital. She reported multiple complaints and had been seen 6 days prior for similar event which had cocaine but otherwise negative workup. As differential diagnosis is for acute blood loss anemia versus acute kidney injury versus electrolyte abnormality versus illicit drug use versus rhabdomyolysis versus pneumonia or pneumothorax I did elect to perform basic laboratory studies with chest x-ray as well as EKG. EKG showed no signs of ischemia or cardiac dysrhythmia. Chest x-ray revealed no acute lung pathology. Lab work was positive for cocaine and marijuana which would correlate with her symptoms but CK is normal going against acute rhabdomyolysis. Which is IV hydration in the ER the patient's vitals improved. At this time as she is not showing ischemic changes related to the cocaine use she does not have acute kidney injury or cardiac dysrhythmia from either I do not feel there is need for further evaluation in the hospital and she is otherwise safe for discharge History & Record Review Discussion w/independent historian: Patient Lab Data Attestation: I reviewed the patient's lab results. Labs: Laboratory Results - last 24 hr 11/27/23 06:23 WBC 7.4 RBC 5.24 Hgb 12.6 Hct 40.3 MCV 76.9 L MCH 24.0 L MCHC 31.3 L RDW Std Deviation 39.8 RDW Coeff of Anoop 14.4 Plt Count 425 MPV 9.0 Immature Gran % (Auto) 0.300 Neut % (Auto) 57.1 Lymph % (Auto) 34.4 [place] % (Auto) 6.5 Eos % (Auto) 1.4 Baso % (Auto) 0.3 Absolute Neuts (auto) 4.2 Absolute Lymphs (auto) 2.54 Nucleated RBC % 0 Sodium 139 Potassium 3.6 Chloride 109 H Carbon Dioxide 23.0 Anion Gap 7 BUN 4 L Creatinine 0.83 Estim Creat Clear Calc 103.29 Est GFR (MDRD) Af Amer 109 Est GFR (MDRD) Non-Af 90 BUN/Creatinine Ratio 4.8 L Glucose 95 Calcium 9.0 Magnesium 2.1 Total Creatine Kinase 88 TSH 5.580 H Urine Opiates Screen NEGATIVE Urine Methadone Screen NEGATIVE Ur Barbiturates Screen NEGATIVE Ur Phencyclidine Scrn NEGATIVE Ur Amphetamines Screen NEGATIVE MDMA (Ecstasy) Screen NEGATIVE U Benzodiazepines Scrn NEGATIVE Urine Cocaine Screen POSITIVE H U Cannabinoids Screen POSITIVE H Ur Drug Screen Comment Radiography Diagnostic Testing: Clinical Impression(s) from Imaging Studies Chest X-Ray 11/27/23 06:15 IMPRESSION: No radiographic evidence of acute cardiopulmonary disease. Electronically Signed: Lisandro Rivas MD at 7:28 EDT Reading Location ID and State: [facility] / [place] Tel , Service support , Chest x-ray as interpreted by the emergency medicine physician reveals no acute infiltrate pneumothorax pleural effusion or widening of the mediastinum Discharge Plan Triage Chief Complaint: General Illness ED Provider: Bryant Reyes Dx/Rx/DC Orders Clinical Impression: Palpitations, Cocaine abuse, Bipolar disorder Instructions: Cocaine: Understanding Its Effects, ED Palpitations Prescriptions: No Action topiramate 100 mg tablet 100 mg PO QHS Rx Instructions: give with 25 mg tablet to = 125 mg medroxyprogesterone [Depo-Provera] 150 mg/mL suspension 150 mg IM .q10w Patient Comments: INJECT 1ML INTRAMUSCULARILY EVERY 12 WEEKS aripiprazole 5 mg tablet 10 mg PO DAILY fluoxetine 40 mg capsule 40 mg PO QHS topiramate 25 mg tablet 25 mg PO DAILY Patient Comments: take 1 tablet by mouth at bedtime Rx Instructions: give with 100 mg tablet to = 125 mg albuterol sulfate 90 mcg/actuation HFA aerosol inhaler 2 puff INHALATION PRN PRN (Reason: Wheezing) Patient Comments: inhale 2 puffs by mouth and INTO THE LUNGS every 4 hours if neede... (REFER TO PRESCRIPTION NOTES). trazodone 50 mg tablet 200 mg PO QHS Patient Comments: TAKE 1 OR 2 TABLETS BY MOUTH AT BEDTIME prazosin 1 mg capsule 1 mg PO DAILY melatonin 3 mg tablet 10 mg PO QHS PRN (Reason: sleep) pantoprazole 40 mg tablet,delayed release (DR/EC) 40 mg PO BID Qty: 60 3RF carvedilol 12.5 mg tablet 12.5 mg PO BID Qty: 180 3RF Rx Instructions: must administer with a meal/food Primary Care Provider: Sury Catherine Referrals: Sury Catherine [Primary Care Provider] - Print Language: Icelandic Disposition Disposition: Home, Self Care Discharge Date/Time: 11/27/23 08:11
[2023-11-27 08:05] VITALS: BP 117/85; PULSE 81; RESP 16; TEMP 36.6; O2SAT 97
[2023-11-27 08:08] VITALS: BP 119/75; PULSE 84; RESP 19; TEMP 36; O2SAT 100
== END 2023-11-27 08:11 | disposition home or self-care (01) ==
PROVIDERS: Emergency Provider Emergency Medicine; Visit Provider Emergency Medicine
DX: R00.2 Palpitations (principal); F20.9 Schizophrenia, unspecified; F14.10 Cocaine abuse, uncomplicated; F31.9 Bipolar disorder, unspecified; F17.290 Nicotine dependence, other tobacco product, uncomplicated; J45.909 Unspecified asthma, uncomplicated; Z79.51 Long term (current) use of inhaled steroids; Z79.899 Other long term (current) drug therapy
CPT/HCPCS: 71046; 80048; 80307; 82550; 83735; 84443; 85025; 93005; 96360; 99283; J7030

== ENCOUNTER 2023-12-24 08:04 | Emergency (ER) | payer MEDICAID, SELFPAY ==
[2023-12-24 08:04] VITALS: BP 135/82; PULSE 97; RESP 16; TEMP 36.6; O2SAT 98; BMI 26.0
--- NOTE | 2023-12-24 08:28 | CT_ITS ---
STUDY: CT ABDOMEN AND PELVIS WITH CONTRAST REASON FOR EXAM: Female, 23 years old. Abdominal pain RADIATION DOSAGE (If Supplied By Facility): CTDIvol = ( 12.47 ) mGy, DLP = ( 594.36 ) mGycm TECHNIQUE: Transaxial images were obtained from the dome of the diaphragm to the symphysis pubis without oral contrast. IV 100mL Isovue-370 was administered. Sagittal and coronal images were reconstructed. Individualized dose optimization techniques were used for this CT. COMPARISON: Comparison is made with prior study April 12, 2024. FINDINGS: The visualized lung bases are unremarkable. The visualized portions of the heart are within normal limits. Normal liver. Normal gallbladder and extrahepatic biliary system. Normal spleen. Normal pancreas. Normal bilateral adrenal glands. Normal right kidney. Normal left kidney. Normal visualized stomach. Normal small intestine. Large amount of fecal material is seen in the colon. The appendix is visualized and appears normal. Normal abdominal aorta. Normal inferior vena cava. Normal retroperitoneum. Normal urinary bladder. Normal abdominal wall. Normal osseous structures. CT/Abdomen/Pelvis W IV Cont ONLY IMPRESSION: Normal enhanced CT of the abdomen and pelvis. Electronically Signed: Eugenio Weathers MD at 10:31 EDT ,
--- NOTE | 2023-12-24 08:29 | EDS_ITS ---
HPI History of Present Illness Chief Complaint: Chest Pain Detail of Chief Complaint: Abdominal pain and vomiting Informant: patient Narrative Narrative: Patient presents to the emergency department with multiple complaints today. She is complaining of upper abdomen pain and bloating that started yesterday. She has been vomiting for 3 weeks. She complains of a headache for about 5 days that is typical of her migraines with some blurred vision. Complains of some photophobia. Rates her headache a 7 or 8 out of 10. She does me she had COVID 2 weeks ago. She has history of gastroparesis and history of migraines. Also complains of some upper back discomfort. Denies urinary symptoms. Patient tells me she had partial small bowel resection as her only major abdominal surgeries. [facility] Medical History Smoker Gastroparesis Schizophrenia OCD (obsessive compulsive disorder) Tachycardia POTS (postural orthostatic tachycardia syndrome) Diarrhea PTSD (post-traumatic stress disorder) Upper abdominal pain GERD (gastroesophageal reflux disease) Endometriosis Pelvic pain Migraine Depression Asthma Anxiety Home Medications ?Medication ?Instructions ?Recorded ?Last Taken ?Type albuterol sulfate 90 mcg/actuation 2 puff inhalation PRN PRN Wheezing 06/14/21 Unknown History aerosol inhaler medroxyprogesterone 150 mg/mL 150 mg IM .q10w 01/04/22 Unknown History intramuscular suspension (Depo-Provera) prazosin 1 mg capsule 1 mg PO DAILY PTSD 03/19/22 Unknown History trazodone 50 mg tablet 200 mg PO QHS 03/19/22 Unknown History pantoprazole 40 mg tablet,delayed 40 mg PO BID #60 tabs 12/03/22 Unknown Rx release aripiprazole 5 mg tablet 10 mg PO DAILY schizophrenia 01/16/23 Unknown History fluoxetine 40 mg capsule 40 mg PO QHS depression 01/16/23 Unknown History topiramate 100 mg tablet 100 mg PO QHS 01/16/23 Unknown History topiramate 25 mg tablet 25 mg PO DAILY 01/16/23 Unknown History carvedilol 12.5 mg tablet 12.5 mg PO BID #180 tabs 02/11/23 Unknown Rx melatonin 3 mg tablet 10 mg PO QHS PRN sleep 11/27/23 Unknown History metoclopramide HCl 5 mg tablet 5 mg PO DAILY PRN nausea and 09/10/24 Unknown Rx (Reglan) vomiting #10 tabs Allergy/AdvReac Type Severity Reaction Status Date / Time gabapentin Allergy Rash Verified 12/24/23 08:05 glycerin (From Nasal-Ease) Allergy Swelling Verified 12/24/23 08:05 methylcellulose (From Allergy Swelling Verified 12/24/23 08:05 Nasal-Ease) sertraline (From Zoloft) Allergy Anaphylaxis Verified 12/24/23 08:05 silicone Allergy Rash Verified 12/24/23 08:05 sodium chloride (From Allergy Swelling Verified 12/24/23 08:05 Nasal-Ease) zinc (From Nasal-Ease) Allergy Swelling Verified 12/24/23 08:05 lactose AdvReac Upset Verified 12/24/23 08:05 Stomach Family History Father Anxiety Depression Asthma Hypertension Mother Asthma Diabetes Anxiety Depression CAD (coronary artery disease) Myocardial infarction, Onset Age: 42 Brother Oleksandr-Danlos syndrome Grandmother Myocardial infarction, Onset Age: 41 Grandfather Myocardial infarction, Onset Age: 38 Surgical History History of colonoscopy History of esophagogastroduodenoscopy (EGD) Hx of laparoscopy Social History household members: none Smoking Status: Current some day smoker tobacco type: e-cigarettes alcohol intake: current alcohol intake frequency: holidays/special occasions only substance use type: does not use caffeine: Yes Type: carbonated beverages, coffee and tea ROS ROS ED Review of Systems ROS Unobtainable: other Constitutional Constitutional ED: Reports lethargy; Denies chills, fever(s), sweats or weight loss Eyes Eyes: Denies blurry vision, change in vision or diplopia ENT ENT ED: Denies rhinorrhea or sore throat Cardiovascular Cardiovascular: Reports chest pain and racing heartbeat; Denies orthopnea Respiratory/Chest Respiratory/Chest: Denies cough, dyspnea, dyspnea on exertion, orthopnea or sputum Gastrointestinal Gastrointestinal: Reports abdominal pain, nausea and vomiting; Denies diarrhea Genitourinary Genitourinary ED: Denies dysuria, hematuria or urinary frequency Musculoskeletal Musculoskeletal: Denies arthralgias, back pain, myalgias or neck pain Integumentary Denies abscess, Abrasions or rash Neurologic Neurologic: Reports headache(s); Denies weakness Psychiatric Psychiatric: Denies anxiety, depression or suicidal thoughts Endocrine Endocrinology: Denies polydipsia, polyphagia or polyuria Hematologic/Lymphatic Hematologic/Lymphatic: Denies easy bleeding, easy bruising or lymphadenopathy Allergic/Immunologic Allergic/Immunologic ED: Denies mouth swelling, tongue swelling or urticaria EXAM Physical Exam Const Vital Signs: 12/24/23 08:04 Temperature 97.9 F Temperature Source Temporal Pulse Rate 97 Respiratory Rate 16 Blood Pressure 135/82 H Blood Pressure Mean 99 Pulse Ox 98 Oxygen Delivery Method Room Air Positive well nourished and well developed General Appearance ED: well developed and NAD HEENT Reports TM's clear and moist mucous membranes normocephalic and atraumatic; Negative for trauma or tenderness Tympanic Membrane ED: Yes TM's clear Eyes PERRL and EOMs intact bilaterally General Eye ED: Negative for pale conjunctiva or scleral icterus Neck no lymphadenopathy, supple and no JVD General: Negative for tenderness Chest Wall inspection of chest normal and palpation of chest normal Chest: Negative for tenderness Resp normal respiratory effort and clear to auscultation bilaterally Effort and Inspection: Negative for respiratory distress or pain with movement Auscultation: Negative for rhonchi, wheezes or diminished lung sounds Cardio regular rate, regular rhythm, S1 normal heart sound, S2 normal heart sound and no murmurs Peripheral Pulses: pulses 2+ throughout GI normal to inspection, nondistended, normoactive bowel sounds, soft to palpation, non-distended and no masses GI Narrative: Mild diffuse tenderness in the epigastric region and right upper quadrant. There is no rebound, rigidity, or peritoneal signs. No mass palpated Back/Spine no CVA tenderness and no thoracic nor lumbar tenderness Extremity normal to inspection General Extremety ED: Negative for edema General Extremity: Negative for edema Neuro oriented x3, CN's II-XII intact bilaterally, no sensory deficits noted and gait normal Sensorium / Orientation: awake, alert, oriented to person, oriented to place and oriented to time Motor Exam: strength 5/5 throughout and strength abnormal Psych mental status grossly normal Skin no rashes or lesions noted and no wounds MDM MDM MDM Narrative Medical decision making narrative: Patient presents the emergency department with multiple complaints of headache and abdominal pain and vomiting. Clinically she looks well. IV line established. In the differential would be viral gastroenteritis versus migraine versus other acute intra-abdominal process. In the differential would be bowel obstruction or bowel perforation. Gallbladder disease would be in the differe ntial. IV line established. CBC with differential obtained showed a white count 6.0 with hemoglobin 12.2 and platelet count of 412. Chemistries unremarkable. LFTs were normal. Lipase normal at 27. hCG was negative. Urinalysis ordered and pending. CT scan of the abdomen pelvis without contrast was obtained and results are currently pending. Patient was given Reglan, Benadryl, and Toradol and she felt markedly improved. She had no further vomiting. She states she felt like her bowel started to move and she had a bowel movement here after being medicated and she is asking to be discharged to home as she needs to get to class for school. Patient will wait for her CT results are as they are currently being dictated Lab Data Attestation: I reviewed the patient's lab results. Labs: Laboratory Results - last 24 hr 12/24/23 09:03 WBC 6.0 RBC 5.07 Hgb 12.2 Hct 38.5 MCV 75.9 L MCH 24.1 L MCHC 31.7 L RDW Std Deviation 41.8 RDW Coeff of Anoop 15.4 H Plt Count 412 MPV 8.8 Immature Gran % (Auto) 0.200 Neut % (Auto) 56.2 Lymph % (Auto) 33.9 [place] % (Auto) 7.7 Eos % (Auto) 1.7 Baso % (Auto) 0.3 Absolute Neuts (auto) 3.4 Absolute Lymphs (auto) 2.03 Nucleated RBC % 0 Sodium 139 Potassium 3.6 Chloride 110 H Carbon Dioxide 22.0 Anion Gap 7 BUN 5 L Creatinine 0.87 Estim Creat Clear Calc 96.68 Est GFR (MDRD) Af Amer 103 Est GFR (MDRD) Non-Af 86 BUN/Creatinine Ratio 5.7 L Glucose 104 Calcium 9.7 Total Bilirubin 0.20 AST 10 L ALT 15 Alkaline Phosphatase 93 Total Protein 7.5 Albumin 3.4 Globulin 4.1 Albumin/Globulin Ratio 0.8 L Lipase 27 Serum , Qual NEGATIVE Discharge Plan Triage Chief Complaint: Chest Pain ED Provider: Loree Funes Dx/Rx/DC Orders Clinical Impression: Headache, migraine, Abdominal pain, Vomiting Instructions: ED Abdominal Pain Unkn Cause Fem, ED, Migraine (Classical), ED Vomiting (Adult) Prescriptions: New metoclopramide HCl [Reglan] 5 mg tablet 5 mg PO DAILY PRN (Reason: nausea and vomiting) Qty: 10 0RF No Action topiramate 100 mg tablet 100 mg PO QHS Rx Instructions: give with 25 mg tablet to = 125 mg medroxyprogesterone [Depo-Provera] 150 mg/mL suspension 150 mg IM .q10w Patient Comments: INJECT 1ML INTRAMUSCULARILY EVERY 12 WEEKS aripiprazole 5 mg tablet 10 mg PO DAILY fluoxetine 40 mg capsule 40 mg PO QHS topiramate 25 mg tablet 25 mg PO DAILY Patient Comments: take 1 tablet by mouth at bedtime Rx Instructions: give with 100 mg tablet to = 125 mg albuterol sulfate 90 mcg/actuation HFA aerosol inhaler 2 puff INHALATION PRN PRN (Reason: Wheezing) Patient Comments: inhale 2 puffs by mouth and INTO THE LUNGS every 4 hours if neede... (REFER TO PRESCRIPTION NOTES). trazodone 50 mg tablet 200 mg PO QHS Patient Comments: TAKE 1 OR 2 TABLETS BY MOUTH AT BEDTIME prazosin 1 mg capsule 1 mg PO DAILY melatonin 3 mg tablet 10 mg PO QHS PRN (Reason: sleep) pantoprazole 40 mg tablet,delayed release (DR/EC) 40 mg PO BID Qty: 60 3RF carvedilol 12.5 mg tablet 12.5 mg PO BID Qty: 180 3RF Rx Instructions: must administer with a meal/food Primary Care Provider: Sury Catherine Referrals: Sury Catherine [Primary Care Provider] - 3-5 Days Print Language: Togolese Disposition Disposition: Home, Self Care
[2023-12-24] MEDS: Metoclopramide 10 MG/2 ML Vial IV (09:01)
[2023-12-24] MEDS: 0.9% Normal Saline (1000mL) 1,000 ML 1000 ML IV (09:01)
[2023-12-24] MEDS: Ketorolac 15 MG/ML Vial IV (09:02)
[2023-12-24 09:10] LABS: Absolute Lymphocyte Count 2.03 X10^3/uL (0.83-4.51); Absolute Neutrophil Count 3.4 X10^3/uL (2.0-7.7); Basophil# 0.02 X10^3/uL; Basophil% 0.3 % (0-1); Eosinophils% 1.7 % (0-5); Hematocrit 38.5 % (37-47); Hemoglobin 12.2 g/dL (12.0-15.0); Lymphocyte # 2.03 X10^3/ul (0.83-4.51); Lymphocyte % 33.9 % (19-41); Mean Corp Hgb Conc 31.7 g/dL (32-36); Mean Corpuscular Hgb 24.1 pg (27.0-32.0); Mean Corpuscular Volume 75.9 fL (81-99); Mean Platelet Vol. 8.8 fl (6.2-12.0); Monocyte# 0.46 X10^3/uL; Monocyte% 7.7 % (0-10); NRBC Flagged by Analyzer 0 % (0-5); Neutrophil # 3.37 X10^3/uL (2.7-7.7); Neutrophil % 56.2 % (47-70); Platelet Count 412 K/mm3 (150-450); RBC Distribution Width CV 15.4 % (11.6-14.6); RBC Distribution Width SD 41.8 fl (35.1-43.9); Red Blood Count 5.07 M/mm3 (4.2-5.4)
[2023-12-24 09:26] LABS: ALB/GLOB Ratio 0.8 RATIO (0.9-2.4); AST(SGOT) 10 U/L (15-37); Alanine Aminotransfer ALT/SGPT 15 U/L (13-56); Albumin, Serum 3.4 g/dL (3.2-5.0); Alkaline Phosphatase 93 U/L (45-117); Anion Gap 7 (5-15); BUN 5 mg/dL (7-18); BUN/Creat Ratio 5.7 RATIO (10-20); Calcium,Total 9.7 mg/dL (8.5-10.1); Chloride 110 mmol/L (98-107); Creatinine, Serum 0.87 mg/dL (0.55-1.02); EST Glomerular Filtration Rate 86 mL/min (>60); Est Glom Filt Rate - Afr Amer 103 mL/min (>60); Estimated Creatinine Clearance 96.68 ml/min; Globulin 4.1 g/dL (2.2-4.2); Glucose 104 mg/dL (74-106); Internal QC Validated? YES +Cl - CLEAR BKGD; Lipase 27 U/L (13-75); Potassium 3.6 mmol/L (3.5-5.1); Pregnancy, Serum, hCG Quali. NEGATIVE Negative; Protein, Total 7.5 g/dL (6.4-8.2); Sodium Level 139 mmol/L (136-145)
[2023-12-24 10:15] LABS: Bacteria 0 SEEN /hpf (None Seen); Mucous, Urine 0 SEEN /hpf (<or=2+); Red Blood Cells-Urine 0 SEEN /hpf (0-5); Squamous Epithelial Cells - UA 0 SEEN /hpf (5-10); White Blood Cells 0 SEEN /hpf (0-5)
[2023-12-24 10:34] LABS: Color, Urine Yellow (Yellow); Glucose, Dipstick Normal (Normal); Ketone-Dipstick Negative (Negative); Leukocyte Esterase-Dipstick Negative /ul (Negative); Nitrite-Dipstick Negative (Negative); Occult Blood-Urine Negative /ul (Negative); Protein-Dipstick Negative (Negative); Urine Bilirubin Dipstick Negative (Negative); Urine Clarity Sl. Cloudy (Clear); Urine Urobilinogen Normal (Normal)
== END 2023-12-24 10:43 | disposition home or self-care (01) ==
PROVIDERS: Emergency Provider Emergency Medicine; Visit Provider Emergency Medicine
DX: R10.10 Upper abdominal pain, unspecified (principal); R11.10 Vomiting, unspecified; F17.290 Nicotine dependence, other tobacco product, uncomplicated; K21.9 Gastro-esophageal reflux disease without esophagitis; J45.909 Unspecified asthma, uncomplicated; K31.84 Gastroparesis; G43.909 Migraine, unspecified, not intractable, without status migrainosus
CPT/HCPCS: 74177; 80053; 81001; 83690; 84703; 85025; 96361; 96374; 96375; 99283; J7030; Q9967

== ENCOUNTER 2023-12-25 14:35 | Emergency (ER) | payer MEDICAID, SELFPAY ==
[2023-12-25] VITALS (16 sets, daily range): BP systolic 105–149; BP diastolic 70–101; PULSE 74–126; RESP 15–51; TEMP 36.1–36.4; O2SAT 97–100; BMI 25.7
--- NOTE | 2023-12-25 15:05 | EDS_ITS ---
HPI <Dr. Fabrice Em MD - Last Filed: 12/26/23 09:44> History of Present Illness Chief Complaint: Chest Pain Detail of Chief Complaint: Multitude of symptoms Informant: patient Onset/Context/Timing Onset: Today and Hours Context: Sudden Onset Timing: Continuous Quality: Headache, myalgias, nausea and vomiting, left-sided chest pain Location: Multiple Current Severity: Mild Maximum Severity: Severe Worsened by: Nothing specific Relieved by: Nothing Associated Symptoms Associated Symptoms: Dry mouth, thirst and orthostatic lightheadedness Narrative Narrative: Patient is a 23-year-old female. She has history of gastric paresis, constipation, hypertension, chronic pelvic disease, asthma, GERD, POTS and hypothyroidism who presents with multiple symptoms. She claims that she had blood shooting from her tonsils this morning. She is vomited numerous times. She complains of epigastric pain as well as left-sided chest pain. Nothing makes the chest pain better or worse. The vomiting makes the abdominal pain worse. She states she does have history of hiatal hernia and had hiatal hernia repair. Will review prior records. She does report temperature of 100.5. She does complain of a vague generalized headache. Eyes double vision blurry vision loss of vision. Eyes ringing or ears decreased hearing. She denies rhinorrhea or congestion. She does complain of sore throat. She denies shortness of breath, cough, dyspnea or dyspnea exertion. Denies orthopnea or PND. Patient states she has vomited numerous times. She states it appears bilious in nature. It is not black, bloody and there are no coffee-ground's. Emesis was noted in the emesis bag and is not suggestive of upper GI bleed. Prior similar symptoms: Yes Recent Illness/Hospitalization: No PFSH <Dr. Fabrice Em MD - Last Filed: 12/26/23 09:44> [facility] Medical History Smoker Gastroparesis Schizophrenia OCD (obsessive compulsive disorder) Tachycardia POTS (postural orthostatic tachycardia syndrome) Diarrhea PTSD (post-traumatic stress disorder) Upper abdominal pain GERD (gastroesophageal reflux disease) Endometriosis Pelvic pain Migraine Depression Asthma Anxiety Home Medications ?Medication ?Instructions ?Recorded ?Last Taken ?Type albuterol sulfate 90 mcg/actuation 2 puff inhalation PRN PRN Wheezing 06/14/21 Unknown History aerosol inhaler medroxyprogesterone 150 mg/mL 150 mg IM .q10w 01/04/22 Unknown History intramuscular suspension (Depo-Provera) prazosin 1 mg capsule 1 mg PO DAILY PTSD 03/19/22 Unknown History trazodone 50 mg tablet 200 mg PO QHS 03/19/22 Unknown History pantoprazole 40 mg tablet,delayed 40 mg PO BID #60 tabs 12/03/22 Unknown Rx release aripiprazole 5 mg tablet 10 mg PO DAILY schizophrenia 01/16/23 Unknown History fluoxetine 40 mg capsule 40 mg PO QHS depression 01/16/23 Unknown History topiramate 100 mg tablet 100 mg PO QHS 01/16/23 Unknown History topiramate 25 mg tablet 25 mg PO DAILY 01/16/23 Unknown History carvedilol 12.5 mg tablet 12.5 mg PO BID #180 tabs 02/11/23 Unknown Rx melatonin 3 mg tablet 10 mg PO QHS PRN sleep 11/27/23 Unknown History metoclopramide HCl 5 mg tablet 5 mg PO DAILY PRN nausea and 12/24/23 Unknown Rx (Reglan) vomiting #10 tabs diphenhydramine HCl 25 mg capsule 25 mg PO TID #10 caps 12/25/23 Unknown Rx (Benadryl) famotidine 20 mg tablet (Pepcid) 20 mg PO BID #7 tabs 12/25/23 Unknown Rx potassium chloride 40 mEq/15 mL 40 meq (15 mL) PO DAILY #75 mL 12/25/23 Unknown Rx oral liquid prednisone 20 mg tablet 60 mg (3 x 20 mg) PO DAILY #12 12/25/23 Unknown Rx TABLETS Allergy/AdvReac Type Severity Reaction Status Date / Time gabapentin Allergy Rash Verified 12/25/23 14:36 glycerin (From Nasal-Ease) Allergy Swelling Verified 12/25/23 14:36 methylcellulose (From Allergy Swelling Verified 12/25/23 14:36 Nasal-Ease) sertraline (From Zoloft) Allergy Anaphylaxis Verified 12/25/23 14:36 silicone Allergy Rash Verified 12/25/23 14:36 sodium chloride (From Allergy Swelling Verified 12/25/23 14:36 Nasal-Ease) zinc (From Nasal-Ease) Allergy Swelling Verified 12/25/23 14:36 lactose AdvReac Upset Verified 12/25/23 14:36 Stomach Family History Father Anxiety Depression Asthma Hypertension Mother Asthma Diabetes Anxiety Depression CAD (coronary artery disease) Myocardial infarction, Onset Age: 42 Brother Oleksandr-Danlos syndrome Grandmother Myocardial infarction, Onset Age: 41 Grandfather Myocardial infarction, Onset Age: 38 Surgical History History of colonoscopy History of esophagogastroduodenoscopy (EGD) Hx of laparoscopy Social History household members: none Smoking Status: Current some day smoker tobacco type: e-cigarettes alcohol intake: current alcohol intake frequency: holidays/special occasions only substance use type: does not use caffeine: Yes Type: carbonated beverages, coffee and tea ROS <Dr. Fabrice Em MD - Last Filed: 12/26/23 09:44> ROS ED Constitutional Constitutional ED: Reports chills, fever(s) and sweats; Denies subjective or weight loss Eyes Eyes: Denies blurry vision, change in vision or diplopia ENT ENT ED: Reports sore throat; Denies ear pain or rhinorrhea Cardiovascular Cardiovascular: Reports chest pain and other Details: Chest pain is on the left. It is not pleuritic. It is constant. It described as sharp. There is no radiation. ; Denies orthopnea, palpitations, paroxysmal nocturnal dyspnea or racing heartbeat Respiratory/Chest Respiratory/Chest: Denies cough, dyspnea, dyspnea on exertion, orthopnea or paroxysmal nocturnal dyspnea Gastrointestinal Gastrointestinal: Reports abdominal pain, constipation, nausea and vomiting; Denies diarrhea or melena Genitourinary Genitourinary ED: Denies dysuria, hematuria or urinary frequency Musculoskeletal Musculoskeletal: Denies arthralgias, back pain or myalgias Integumentary Denies abscess or rash Neurologic Neurologic: Reports weakness; Denies headache(s) or paresthesias Psychiatric Psychiatric: Reports anxiety Endocrine Endocrinology: Denies cold intolerance Hematologic/Lymphatic Hematologic/Lymphatic: Reports systems reviewed and no addt'l complaints, except as documented Allergic/Immunologic Allergic/Immunologic ED: Denies mouth swelling, tongue swelling or urticaria EXAM <Dr. Fabrice Em MD - Last Filed: 12/26/23 09:44> Physical Exam Const Vital Signs: 12/25/23 14:36 12/25/23 15:21 12/25/23 15:30 Temperature 96.9 F L Temperature Source Temporal Pulse Rate 126 H 99 98 Pulse Rate [Lying] Pulse Rate [Sitting (for 1 minute prior to obtaining)] Pulse Rate [Standing (for 1 minute prior to obtaining)] Respiratory Rate 22 H 51 H 15 Blood Pressure 135/101 H 129/88 H Blood Pressure [Lying] Blood Pressure [Sitting (for 1 minute prior to obtaining)] Blood Pressure [Standing (for 1 minute prior to obtaining)] Blood Pressure Mean 112 101 Blood Pressure Mean [Lying] Blood Pressure Mean [Sitting (for 1 minute prior to obtaining)] Blood Pressure Mean [Standing (for 1 minute prior to obtaining)] Pulse Ox 97 Oxygen Delivery Method Room Air 12/25/23 15:33 12/25/23 15:35 12/25/23 15:37 Temperature Temperature Source Pulse Rate 86 88 Pulse Rate [Lying] 94 Pulse Rate [Sitting (for 1 minute prior to obtaining)] 88 Pulse Rate [Standing (for 1 minute prior to obtaining)] 108 H Respiratory Rate 31 H 25 H Blood Pressure 135/87 H 133/97 H Blood Pressure [Lying] 135/87 H Blood Pressure [Sitting (for 1 minute prior to obtaining)] 133/97 H Blood Pressure [Standing (for 1 minute prior to obtaining)] 146/84 H Blood Pressure Mean 100 108 Blood Pressure Mean [Lying] 103 Blood Pressure Mean [Sitting (for 1 minute prior to obtaining)] 109 Blood Pressure Mean [Standing (for 1 minute prior to obtaining)] 104 Pulse Ox Oxygen Delivery Method 12/25/23 15:38 12/25/23 15:39 12/25/23 15:45 Temperature Temperature Source Pulse Rate 100 83 82 Pulse Rate [Lying] Pulse Rate [Sitting (for 1 minute prior to obtaining)] Pulse Rate [Standing (for 1 minute prior to obtaining)] Respiratory Rate 25 H 18 32 H Blood Pressure 146/84 H 120/79 Blood Pressure [Lying] Blood Pressure [Sitting (for 1 minute prior to obtaining)] Blood Pressure [Standing (for 1 minute prior to obtaining)] Blood Pressure Mean 103 91 Blood Pressure Mean [Lying] Blood Pressure Mean [Sitting (for 1 minute prior to obtaining)] Blood Pressure Mean [Standing (for 1 minute prior to obtaining)] Pulse Ox 100 100 100 Oxygen Delivery Method Room Air 12/25/23 16:00 12/25/23 16:00 12/25/23 16:17 Temperature Temperature Source Pulse Rate 74 117 H Pulse Rate [Lying] Pulse Rate [Sitting (for 1 minute prior to obtaining)] Pulse Rate [Standing (for 1 minute prior to obtaining)] Respiratory Rate 16 22 H Blood Pressure 118/70 118/70 Blood Pressure [Lying] Blood Pressure [Sitting (for 1 minute prior to obtaining)] Blood Pressure [Standing (for 1 minute prior to obtaining)] Blood Pressure Mean 86 84 Blood Pressure Mean [Lying] Blood Pressure Mean [Sitting (for 1 minute prior to obtaining)] Blood Pressure Mean [Standing (for 1 minute prior to obtaining)] Pulse Ox 100 99 Oxygen Delivery Method Room Air 12/25/23 16:30 12/25/23 16:45 12/25/23 17:00 Temperature Temperature Source Pulse Rate 91 80 Pulse Rate [Lying] Pulse Rate [Sitting (for 1 minute prior to obtaining)] Pulse Rate [Standing (for 1 minute prior to obtaining)] Respiratory Rate 22 H 19 H Blood Pressure 129/84 H 126/85 H 105/73 Blood Pressure [Lying] Blood Pressure [Sitting (for 1 minute prior to obtaining)] Blood Pressure [Standing (for 1 minute prior to obtaining)] Blood Pressure Mean 98 98 83 Blood Pressure Mean [Lying] Blood Pressure Mean [Sitting (for 1 minute prior to obtaining)] Blood Pressure Mean [Standing (for 1 minute prior to obtaining)] Pulse Ox Oxygen Delivery Method 12/25/23 17:15 12/25/23 17:34 Temperature 97.5 F L Temperature Source Pulse Rate 97 100 Pulse Rate [Lying] Pulse Rate [Sitting (for 1 minute prior to obtaining)] Pulse Rate [Standing (for 1 minute prior to obtaining)] Respiratory Rate 15 18 Blood Pressure 140/93 H 149/95 H Blood Pressure [Lying] Blood Pressure [Sitting (for 1 minute prior to obtaining)] Blood Pressure [Standing (for 1 minute prior to obtaining)] Blood Pressure Mean 107 113 Blood Pressure Mean [Lying] Blood Pressure Mean [Sitting (for 1 minute prior to obtaining)] Blood Pressure Mean [Standing (for 1 minute prior to obtaining)] Pulse Ox 100 98 Oxygen Delivery Method Positive well nourished and well developed Constitutional Narrative: Patient appears ill. She appears slightly pale. Patient vitals remarkable for elevated blood pressure tachycardia and tachypnea. Temperature in the department is 96.9. She is not hypoxic. General Appearance ED: well developed HEENT Reports dry mucous membranes HEENT Narrative: Head is atraumatic, cephalic. Ears normal. Nares patent. Posterior pharynx without erythema or exudate. Uvula midline. No deviation or protrusion. Mouth ED: Yes dry mucous membranes Mouth: dry mucous membranes Eyes PERRL and EOMs intact bilaterally General Eye ED: Negative for pale conjunctiva or scleral icterus Neck no lymphadenopathy, supple and no JVD Neck Narrative: There is no cervical lymphadenopathy. There is no swelling. Patient states she had swelling this morning on the right side. Chest Wall inspection of chest normal and palpation of chest normal Resp normal respiratory effort and clear to auscultation bilaterally Cardio regular rhythm, S1 normal heart sound, S2 normal heart sound and no murmurs Rate: tachycardic GI non-distended and no masses; Negative for normal to inspection, nondistended, normoactive bowel sounds, non-tender or hepatosplenomegaly Auscultation: hypoactive bowel sounds Palpation: soft and tender epigastric; Negative for mass Back/Spine no CVA tenderness Extremity normal to inspection General Extremety ED: Negative for edema or tenderness General Extremity: Negative for edema Neuro oriented x3 and CN's II-XII intact bilaterally Sensorium / Orientation: alert Psych Psych Narrative: Affect is flat. Mood & Affect: anxious Skin no rashes or lesions noted, no wounds and skin turgor normal Skin Narrative: Question of pallor. General Skin Exam: Negative for jaundice <Dr. Loree Funes, DO - Last Filed: 12/25/23 17:12> Physical Exam Const Vital Signs: 12/25/23 14:36 12/25/23 15:21 12/25/23 15:30 Temperature 96.9 F L Temperature Source Temporal Pulse Rate 126 H 99 98 Pulse Rate [Lying] Pulse Rate [Sitting (for 1 minute prior to obtaining)] Pulse Rate [Standing (for 1 minute prior to obtaining)] Respiratory Rate 22 H 51 H 15 Blood Pressure 135/101 H 129/88 H Blood Pressure [Lying] Blood Pressure [Sitting (for 1 minute prior to obtaining)] Blood Pressure [Standing (for 1 minute prior to obtaining)] Blood Pressure Mean 112 101 Blood Pressure Mean [Lying] Blood Pressure Mean [Sitting (for 1 minute prior to obtaining)] Blood Pressure Mean [Standing (for 1 minute prior to obtaining)] Pulse Ox 97 Oxygen Delivery Method Room Air 12/25/23 15:33 12/25/23 15:35 12/25/23 15:37 Temperature Temperature Source Pulse Rate 86 88 Pulse Rate [Lying] 94 Pulse Rate [Sitting (for 1 minute prior to obtaining)] 88 Pulse Rate [Standing (for 1 minute prior to obtaining)] 108 H Respiratory Rate 31 H 25 H Blood Pressure 135/87 H 133/97 H Blood Pressure [Lying] 135/87 H Blood Pressure [Sitting (for 1 minute prior to obtaining)] 133/97 H Blood Pressure [Standing (for 1 minute prior to obtaining)] 146/84 H Blood Pressure Mean 100 108 Blood Pressure Mean [Lying] 103 Blood Pressure Mean [Sitting (for 1 minute prior to obtaining)] 109 Blood Pressure Mean [Standing (for 1 minute prior to obtaining)] 104 Pulse Ox Oxygen Delivery Method 12/25/23 15:38 12/25/23 15:39 12/25/23 15:45 Temperature Temperature Source Pulse Rate 100 83 82 Pulse Rate [Lying] Pulse Rate [Sitting (for 1 minute prior to obtaining)] Pulse Rate [Standing (for 1 minute prior to obtaining)] Respiratory Rate 25 H 18 32 H Blood Pressure 146/84 H 120/79 Blood Pressure [Lying] Blood Pressure [Sitting (for 1 minute prior to obtaining)] Blood Pressure [Standing (for 1 minute prior to obtaining)] Blood Pressure Mean 103 91 Blood Pressure Mean [Lying] Blood Pressure Mean [Sitting (for 1 minute prior to obtaining)] Blood Pressure Mean [Standing (for 1 minute prior to obtaining)] Pulse Ox 100 100 100 Oxygen Delivery Method Room Air 12/25/23 16:00 12/25/23 16:00 12/25/23 16:17 Temperature Temperature Source Pulse Rate 74 117 H Pulse Rate [Lying] Pulse Rate [Sitting (for 1 minute prior to obtaining)] Pulse Rate [Standing (for 1 minute prior to obtaining)] Respiratory Rate 16 22 H Blood Pressure 118/70 118/70 Blood Pressure [Lying] Blood Pressure [Sitting (for 1 minute prior to obtaining)] Blood Pressure [Standing (for 1 minute prior to obtaining)] Blood Pressure Mean 86 84 Blood Pressure Mean [Lying] Blood Pressure Mean [Sitting (for 1 minute prior to obtaining)] Blood Pressure Mean [Standing (for 1 minute prior to obtaining)] Pulse Ox 100 99 Oxygen Delivery Method Room Air 12/25/23 16:30 12/25/23 16:45 12/25/23 17:00 Temperature Temperature Source Pulse Rate 91 80 Pulse Rate [Lying] Pulse Rate [Sitting (for 1 minute prior to obtaining)] Pulse Rate [Standing (for 1 minute prior to obtaining)] Respiratory Rate 22 H 19 H Blood Pressure 129/84 H 126/85 H 105/73 Blood Pressure [Lying] Blood Pressure [Sitting (for 1 minute prior to obtaining)] Blood Pressure [Standing (for 1 minute prior to obtaining)] Blood Pressure Mean 98 98 83 Blood Pressure Mean [Lying] Blood Pressure Mean [Sitting (for 1 minute prior to obtaining)] Blood Pressure Mean [Standing (for 1 minute prior to obtaining)] Pulse Ox Oxygen Delivery Method 12/25/23 17:15 12/25/23 17:34 Temperature 97.5 F L Temperature Source Pulse Rate 97 100 Pulse Rate [Lying] Pulse Rate [Sitting (for 1 minute prior to obtaining)] Pulse Rate [Standing (for 1 minute prior to obtaining)] Respiratory Rate 15 18 Blood Pressure 140/93 H 149/95 H Blood Pressure [Lying] Blood Pressure [Sitting (for 1 minute prior to obtaining)] Blood Pressure [Standing (for 1 minute prior to obtaining)] Blood Pressure Mean 107 113 Blood Pressure Mean [Lying] Blood Pressure Mean [Sitting (for 1 minute prior to obtaining)] Blood Pressure Mean [Standing (for 1 minute prior to obtaining)] Pulse Ox 100 98 Oxygen Delivery Method [facility] <Dr. Fabrice Em MD - Last Filed: 12/26/23 09:44> [facility] Narrative Medical decision making narrative: There is no oral or posterior pharyngeal lesions to suggest patient is bleeding from her tonsils. There is no evidence of epistaxis. Patient's emesis at this time is bilious in nature. There is no concern for acute upper GI bleed. Clinically patient is dehydrated. IV fluids were ordered. Since she does have gastroparesis nausea vomit is treated with Reglan. CBC was obtained to assess H&H and she appears pale and reported blood from her tonsils. Also discussed white count and more importantly differential looking for atypical lymphocytes. BMP to assess renal function and anion gap. Prior records were reviewed. She also has history of schizophrenia and bipolar affective disorder. test was ordered as well. Repeat vitals at 1539 reveal significant improvement. Pulse has decreased in 1 26-83. Respirations is decreased to 18. Blood pressure is slightly elevated 133/97. She does have history of hypertension. Patient was reassessed at 1617. Patient complains of blotches on her face neck chest and itching. Patient has urticaria. Only medicine she received in the emergency department was Reglan. Will treat with H1 and H2 clau and Solu- Medrol. Patient did pass p.o. challenge. Lab Data Attestation: I reviewed the patient's lab results. Lab results narrative: CBC reveals microcytic anemia. Patient has a history of microcytic anemia reviewing prior records. Her hemoglobin has varied from 11.3-13.6 basic metabolic panel is remarkable for mild hypokalemia 2.9. Will order p.o. potassium. Serum test was negative. Labs: Laboratory Results - last 24 hr 12/25/23 12/25/23 15:28 16:16 WBC 8.7 RBC 4.69 Hgb 11.2 L Hct 34.7 L MCV 74.0 L MCH 23.9 L MCHC 32.3 RDW Std Deviation 39.8 RDW Coeff of Anoop 15.0 H Plt Count 403 MPV 8.9 Immature Gran % (Auto) 0.300 Neut % (Auto) 67.2 Lymph % (Auto) 23.6 [place] % (Auto) 7.8 Eos % (Auto) 0.9 Baso % (Auto) 0.2 Absolute Neuts (auto) 5.9 Absolute Lymphs (auto) 2.06 Nucleated RBC % 0 Sodium 141 Potassium 2.9 L Chloride 109 H Carbon Dioxide 22.0 Anion Gap 10 BUN 4 L Creatinine 0.79 Estim Creat Clear Calc 105.84 Est GFR (MDRD) Af Amer 116 Est GFR (MDRD) Non-Af 96 BUN/Creatinine Ratio 5.1 L Glucose 88 Calcium 9.3 Serum , Qual NEGATIVE Urine Color Yellow Urine Clarity Clear Urine pH 7.0 Ur Specific [place] 1.005 Urine Protein Negative Urine Glucose (UA) Normal Urine Ketones Negative Urine Occult Blood 25 H Urine Nitrite Negative Urine Bilirubin Negative Urine Urobilinogen Normal Ur Leukocyte Esterase 100 H Urine RBC 0-5 SEEN Urine WBC 5-10 SEEN Ur Squamous Epith Cells 0-5 SEEN Urine Bacteria RARE Urine Mucus 0 SEEN Treatment and Re-Evaluation :: Orthostatic vital signs are negative. Orthostatic vital signs were performed at 1533. <Dr. Loree Funes, DO - Last Filed: 12/25/23 17:12> [facility] Narrative Medical decision making narrative: There is no oral or posterior pharyngeal lesions to suggest patient is bleeding from her tonsils. There is no evidence of epistaxis. Patient's emesis at this time is bilious in nature. There is no concern for acute upper GI bleed. Clinically patient is dehydrated. IV fluids were ordered. Since she does have gastroparesis nausea vomit is treated with Reglan. CBC was obtained to assess H&H and she appears pale and reported blood from her tonsils. Also discussed white count and more importantly differential looking for atypical lymphocytes. BMP to assess renal function and anion gap. Prior records were reviewed. She also has history of schizophrenia and bipolar affective disorder. test was ordered as well. Repeat vitals at 1539 reveal significant improvement. Pulse has decreased in 1 26-83. Respirations is decreased to 18. Blood pressure is slightly elevated 133/97. She does have history of hypertension. Patient was reassessed at 1617. Patient complains of blotches on her face neck chest and itching. Patient has urticaria. Only medicine she received in the emergency department was Reglan. Will treat with H1 and H2 clau and Solu- Medrol. Patient did pass p.o. challenge. Care of patient turned over to me awaiting p.o. challenge and fluids. Patient was able to tolerate her p.o. challenge. Her rash is now resolved on repeat examination at 1710. Patient describe some chest tightness and was given a GI cocktail. There is no wheezing on her exam and no angioedema of the lips or tongue. Clinically she looks well. Will discharge to home in stable condition Lab Data Labs: Laboratory Results - last 24 hr 12/25/23 12/25/23 15:28 16:16 WBC 8.7 RBC 4.69 Hgb 11.2 L Hct 34.7 L MCV 74.0 L MCH 23.9 L MCHC 32.3 RDW Std Deviation 39.8 RDW Coeff of Anoop 15.0 H Plt Count 403 MPV 8.9 Immature Gran % (Auto) 0.300 Neut % (Auto) 67.2 Lymph % (Auto) 23.6 [place] % (Auto) 7.8 Eos % (Auto) 0.9 Baso % (Auto) 0.2 Absolute Neuts (auto) 5.9 Absolute Lymphs (auto) 2.06 Nucleated RBC % 0 Sodium 141 Potassium 2.9 L Chloride 109 H Carbon Dioxide 22.0 Anion Gap 10 BUN 4 L Creatinine 0.79 Estim Creat Clear Calc 105.84 Est GFR (MDRD) Af Amer 116 Est GFR (MDRD) Non-Af 96 BUN/Creatinine Ratio 5.1 L Glucose 88 Calcium 9.3 Serum , Qual NEGATIVE Urine Color Yellow Urine Clarity Clear Urine pH 7.0 Ur Specific [place] 1.005 Urine Protein Negative Urine Glucose (UA) Normal Urine Ketones Negative Urine Occult Blood 25 H Urine Nitrite Negative Urine Bilirubin Negative Urine Urobilinogen Normal Ur Leukocyte Esterase 100 H Urine RBC 0-5 SEEN Urine WBC 5-10 SEEN Ur Squamous Epith Cells 0-5 SEEN Urine Bacteria RARE Urine Mucus 0 SEEN Discharge Plan Triage Chief Complaint: Chest Pain ED Provider: Fabrice Em Dx/Rx/DC Orders Clinical Impression: Intractable nausea and vomiting, History of post traumatic stress disorder, POTS (postural orthostatic tachycardia syndrome), Gastroparesis, Acute deh ydration, Sinus tachycardia, Systemic viral illness, Urticaria, Allergic reaction to drug, Acute hypokalemia Instructions: ED Hives (Adult), ED Viral Syndrome (Adult), ED Vomiting (Adult) Prescriptions: New famotidine [Pepcid] 20 mg tablet 20 mg PO BID Qty: 7 0RF prednisone 20 mg tablet 60 mg PO DAILY Qty: 12 0RF diphenhydramine HCl [Benadryl] 25 mg capsule 25 mg PO TID Qty: 10 0RF potassium chloride 40 mEq/15 mL liquid 40 meq PO DAILY Qty: 75 0RF No Action topiramate 100 mg tablet 100 mg PO QHS Rx Instructions: give with 25 mg tablet to = 125 mg medroxyprogesterone [Depo-Provera] 150 mg/mL suspension 150 mg IM .q10w Patient Comments: INJECT 1ML INTRAMUSCULARILY EVERY 12 WEEKS aripiprazole 5 mg tablet 10 mg PO DAILY fluoxetine 40 mg capsule 40 mg PO QHS topiramate 25 mg tablet 25 mg PO DAILY Patient Comments: take 1 tablet by mouth at bedtime Rx Instructions: give with 100 mg tablet to = 125 mg albuterol sulfate 90 mcg/actuation HFA aerosol inhaler 2 puff INHALATION PRN PRN (Reason: Wheezing) Patient Comments: inhale 2 puffs by mouth and INTO THE LUNGS every 4 hours if neede... (REFER TO PRESCRIPTION NOTES). trazodone 50 mg tablet 200 mg PO QHS Patient Comments: TAKE 1 OR 2 TABLETS BY MOUTH AT BEDTIME prazosin 1 mg capsule 1 mg PO DAILY melatonin 3 mg tablet 10 mg PO QHS PRN (Reason: sleep) metoclopramide HCl [Reglan] 5 mg tablet 5 mg PO DAILY PRN (Reason: nausea and vomiting) Qty: 10 0RF pantoprazole 40 mg tablet,delayed release (DR/EC) 40 mg PO BID Qty: 60 3RF carvedilol 12.5 mg tablet 12.5 mg PO BID Qty: 180 3RF Rx Instructions: must administer with a meal/food Primary Care Provider: Sury Catherine Referrals: Sury Catherine [Primary Care Provider] - 3-5 Days Activity Restrictions/Additional Instructions: You will need to follow-up at the you will need to follow-up with [facility] in 4 to 5 days to have your potassium redrawn. Print Language: Sami Disposition Disposition: Home, Self Care Discharge Date/Time: 12/25/23 17:40
[2023-12-25] MEDS: 0.9% Normal Saline (1000mL) 1,000 ML 1000 ML IV (15:30)
[2023-12-25] MEDS: oxyCODONE 5 MG Tablet 10 MG PO (15:32)
[2023-12-25 15:47] LABS: Absolute Lymphocyte Count 2.06 X10^3/uL (0.83-4.51); Absolute Neutrophil Count 5.9 X10^3/uL (2.0-7.7); Basophil# 0.02 X10^3/uL; Basophil% 0.2 % (0-1); Eosinophil# 0.08 X10^3/uL; Eosinophils% 0.9 % (0-5); Hematocrit 34.7 % (37-47); Hemoglobin 11.2 g/dL (12.0-15.0); Lymphocyte # 2.06 X10^3/ul (0.83-4.51); Lymphocyte % 23.6 % (19-41); Mean Corp Hgb Conc 32.3 g/dL (32-36); Mean Corpuscular Hgb 23.9 pg (27.0-32.0); Mean Platelet Vol. 8.9 fl (6.2-12.0); Monocyte# 0.68 X10^3/uL; Monocyte% 7.8 % (0-10); NRBC Flagged by Analyzer 0 % (0-5); Neutrophil # 5.86 X10^3/uL (2.7-7.7); Neutrophil % 67.2 % (47-70); Platelet Count 403 K/mm3 (150-450); RBC Distribution Width SD 39.8 fl (35.1-43.9); Red Blood Count 4.69 M/mm3 (4.2-5.4); White Blood Count 8.7 K/mm3 (4.4-11.0)
[2023-12-25 16:10] LABS: Anion Gap 10 (5-15); BUN 4 mg/dL (7-18); BUN/Creat Ratio 5.1 RATIO (10-20); Calcium,Total 9.3 mg/dL (8.5-10.1); Chloride 109 mmol/L (98-107); Creatinine, Serum 0.79 mg/dL (0.55-1.02); EST Glomerular Filtration Rate 96 mL/min (>60); Est Glom Filt Rate - Afr Amer 116 mL/min (>60); Estimated Creatinine Clearance 105.84 ml/min; Glucose 88 mg/dL (74-106); Internal QC Validated? YES +Cl - CLEAR BKGD; Potassium 2.9 mmol/L (3.5-5.1); Pregnancy, Serum, hCG Quali. NEGATIVE Negative; Sodium Level 141 mmol/L (136-145)
--- NOTE | 2023-12-25 16:15 | ED.RN ---
Addendum entered by Maren Escalante 12/25/23 18:12: DURING INITIAL ASSESSMENT OF PATIENT (AT 1615), THIS RN NOTED O2 SATS AT 95-100%. NO DECREASED O2 SATS NOTED. WITHIN 5 MINS OF ADMINISTRATION OF BENADRYL, PT STATES THAT HER ITCHING HAD IMPROVED. PT STATES THANK YOU FOR SAVING MY LIFE, LITERALLY Original Note: THIS RN IN ROOM TO COLLECT URINE SAMPLE. PATIENT C/O ITCHING IN THE NECK AND CHEST AREA. MILD RED RASH NOTED ON NECK. PT ENDORSES SOME INCREASED SOB, BUT NO FACIAL OR TONGUE SWELLING NOTED. NO SIGNIFICANT INCREASE OF WORK OF BREATHING NOTED. WHILE THIS RN CONTINUES TO COLLECT URINE, DR. CROOK IN ROOM. DR. CROOK ASSESSED PT AND NOTED PT MOST LIKELY HAVING AN ALLERGIC REACTION TO MEDICATION. DR ORDERED BENADRYL, SOLUMEDROL, AND PEPCID. RN ADMINISTERED BENEDRYL AND SOLUMEDROL, AWAITING PEPCID FROM PHARMACY.
[2023-12-25 16:22] LABS: Mucous, Urine 0 SEEN /hpf (<or=2+)
[2023-12-25] MEDS: DiphenhydrAMINE 50 MG/ML Syringe 25 MG IV (16:23)
[2023-12-25] MEDS: MethylPREDNISolone 125 MG/2 ML Vial IV (16:23)
[2023-12-25 16:24] LABS: Color, Urine Yellow (Yellow); Glucose, Dipstick Normal (Normal); Ketone-Dipstick Negative (Negative); Leukocyte Esterase-Dipstick 100 /ul (Negative); Nitrite-Dipstick Negative (Negative); Occult Blood-Urine 25 /ul (Negative); Protein-Dipstick Negative (Negative); Specific Gravity, Urine 1.005 (1.002-1.030); Urine Bilirubin Dipstick Negative (Negative); Urine Clarity Clear (Clear); Urine Urobilinogen Normal (Normal)
[2023-12-25 16:32] LABS: Red Blood Cells-Urine 0-5 SEEN /hpf (0-5); Squamous Epithelial Cells - UA 0-5 SEEN /hpf (5-10); White Blood Cells 5-10 SEEN /hpf (0-5)
[2023-12-25 16:33] LABS: Bacteria RARE /hpf (None Seen)
[2023-12-25] MEDS: 0.9% Normal Saline (1000mL) 1,000 ML 999 ML IV (16:33)
[2023-12-25] MEDS: Potassium Chloride Oral Soln 20 MEQ/15 ML UDC 40 MEQ PO (16:46)
[2023-12-25] MEDS: Famotidine 200 MG/20 ML MDV 20 MG in 0.9% Normal Saline (Pres. free 8 ML 300 MG IV (16:46)
--- NOTE | 2023-12-25 17:31 | ED.RN ---
pt states she saw splotches on her arm and that her oxygen was 90% and she saw blue all around her mouth. This RN did not witness anything. Pt states she is not happy with Dr Funes and that he is not listening. He is trying to give her a GI cocktail but pt refused.
== END 2023-12-25 17:40 | disposition home or self-care (01) ==
LOC: ED 15:07
PROVIDERS: Emergency Provider Emergency Medicine; Visit Provider Emergency Medicine
DX: R11.2 Nausea with vomiting, unspecified (principal); F20.9 Schizophrenia, unspecified; F31.9 Bipolar disorder, unspecified; E86.0 Dehydration; L50.9 Urticaria, unspecified; R51.9 Headache, unspecified; T45.0X5A Adverse effect of antiallergic and antiemetic drugs, initial encounter; F17.290 Nicotine dependence, other tobacco product, uncomplicated; I10 Essential (primary) hypertension; K21.9 Gastro-esophageal reflux disease without esophagitis; J45.909 Unspecified asthma, uncomplicated; Z79.899 Other long term (current) drug therapy; Z79.52 Long term (current) use of systemic steroids; F41.9 Anxiety disorder, unspecified; K31.84 Gastroparesis; D50.9 Iron deficiency anemia, unspecified; E87.6 Hypokalemia; F43.10 Post-traumatic stress disorder, unspecified; G90.A Postural orthostatic tachycardia syndrome [POTS]; B34.9 Viral infection, unspecified; R00.0 Tachycardia, unspecified
CPT/HCPCS: 80048; 81001; 84703; 85025; 96361; 96374; 96375; 99285; J7030; A4216; J3490

== ENCOUNTER 2023-12-26 22:01 | Emergency (ER) | payer MEDICAID, SELFPAY ==
[2023-12-26 22:02] VITALS: BP 138/87; PULSE 105; RESP 16; TEMP 36.9; O2SAT 99; BMI 25.9
[2023-12-26 22:06] VITALS: BP 138/87; PULSE 101; RESP 16; O2SAT 99
--- NOTE | 2023-12-26 22:10 | ED.RN ---
PT WAS SEEN HERE IN THE ED FOR C/O HER TONSILS YESTERDAY. PT SAID SHE WAS HAVING N/V AND HAD A REACTION WHILE HERE IN THE ED TO REGLAN. SHE SAID IT WAS CHAOTIC AND THEY NEVER CHECKED MY TONSILS HERE SO SHE WENT TO THE URGENT CARE TODAY AND THEY PRESCRIBED METHYLPREDNISOLONE AND SHE TOOK HER MEDICATIONS THIS EVENING AND FELT LIKE SHE COULDN'T BREATHE WITH ITCHING. SQUAD ARRIVED AND SAID PT WAS STABLE WITH 98% ON RA, ABLE TO SPEAK CLEARLY AND ANSWER ALL QUESTIONS. UPON ARRIVAL TO THE ED PT SAID SHE DOES FEEL BETTER BUT THINKS HER ANKLES ARE SWELLING. PT IS MENTIONING A RANGE OF CONCERNS AND STATES IM JUST NERVOUS, IT FREAKS ME OUT SHE SAID SHE HAS CHRONIC BACK PAIN, THE WHITES OF HER EYES LOOKED STRAUSS BUT THAT THEY MIGHT NOT BE ANYMORE. AFTER ASSESSMENT PT DOES NOT HAVE ANY RASH OR SWELLING PRESENT. PT IS A&O X 4. O2 SAT IS 99% ON RA. VS ARE WNL.
--- NOTE | 2023-12-26 23:26 | EX.ED.DYSGE1 ---
HPI History of Present Illness Chief Complaint: Allergic Reaction Narrative Narrative: Patient is a 23-year-old female with extensive medical history including POTS, GERD, bipolar disorder, chronic abdominal pain secondary to gastroparesis and hypothyroidism presenting for concern of allergic reaction. Patient was seen in our ER yesterday. She developed urticaria after receiving IV Reglan. She was discharged home with a prescription for Benadryl and methylprednisolone. Patient states she took those medicines about 4 hours prior to arrival and then about 45 minutes to an hour prior to arrival she started to have shortness of breath, cough, leg swelling and hives again. She called 911. She notes her symptoms are improving however she did not take any further medicine. She states that she is feeling better now and ready to go home. Denies any swelling of her throat or wheezing. No other complaints or concerns reported at this time. [facility] Medical History Smoker Gastroparesis Schizophrenia OCD (obsessive compulsive disorder) Tachycardia POTS (postural orthostatic tachycardia syndrome) Diarrhea PTSD (post-traumatic stress disorder) Upper abdominal pain GERD (gastroesophageal reflux disease) Endometriosis Pelvic pain Migraine Depression Asthma Anxiety Home Medications ?Medication ?Instructions ?Recorded ?Last Taken ?Type albuterol sulfate 90 mcg/actuation 2 puff inhalation PRN PRN Wheezing 06/14/21 Unknown History aerosol inhaler medroxyprogesterone 150 mg/mL 150 mg IM .q10w 01/04/22 Unknown History intramuscular suspension (Depo-Provera) prazosin 1 mg capsule 1 mg PO DAILY PTSD 03/19/22 Unknown History trazodone 50 mg tablet 200 mg PO QHS 03/19/22 Unknown History pantoprazole 40 mg tablet,delayed 40 mg PO BID #60 tabs 12/03/22 Unknown Rx release aripiprazole 5 mg tablet 10 mg PO DAILY schizophrenia 01/16/23 Unknown History fluoxetine 40 mg capsule 40 mg PO QHS depression 01/16/23 Unknown History topiramate 100 mg tablet 100 mg PO QHS 01/16/23 Unknown History topiramate 25 mg tablet 25 mg PO DAILY 01/16/23 Unknown History carvedilol 12.5 mg tablet 12.5 mg PO BID #180 tabs 02/11/23 Unknown Rx melatonin 3 mg tablet 10 mg PO QHS PRN sleep 11/27/23 Unknown History metoclopramide HCl 5 mg tablet 5 mg PO DAILY PRN nausea and 12/24/23 Unknown Rx (Reglan) vomiting #10 tabs diphenhydramine HCl 25 mg capsule 25 mg PO TID #10 caps 12/25/23 Unknown Rx (Benadryl) famotidine 20 mg tablet (Pepcid) 20 mg PO BID #7 tabs 12/25/23 Unknown Rx potassium chloride 40 mEq/15 mL 40 meq (15 mL) PO DAILY #75 mL 12/25/23 Unknown Rx oral liquid prednisone 20 mg tablet 60 mg (3 x 20 mg) PO DAILY #12 12/25/23 Unknown Rx TABLETS Allergy/AdvReac Type Severity Reaction Status Date / Time gabapentin Allergy Rash Verified 12/26/23 22:18 glycerin (From Nasal-Ease) Allergy Swelling Verified 12/26/23 22:18 methylcellulose (From Allergy Swelling Verified 12/26/23 22:18 Nasal-Ease) sertraline (From Zoloft) Allergy Anaphylaxis Verified 12/26/23 22:18 silicone Allergy Rash Verified 12/26/23 22:18 sodium chloride (From Allergy Swelling Verified 12/26/23 22:18 Nasal-Ease) zinc (From Nasal-Ease) Allergy Swelling Verified 12/26/23 22:18 lactose AdvReac Upset Verified 12/26/23 22:18 Stomach Family History Father Anxiety Depression Asthma Hypertension Mother Asthma Diabetes Anxiety Depression CAD (coronary artery disease) Myocardial infarction, Onset Age: 42 Brother Oleksandr-Danlos syndrome Grandmother Myocardial infarction, Onset Age: 41 Grandfather Myocardial infarction, Onset Age: 38 Surgical History History of colonoscopy History of esophagogastroduodenoscopy (EGD) Hx of laparoscopy Social History household members: none Smoking Status: Current some day smoker tobacco type: e-cigarettes alcohol intake: current alcohol intake frequency: holidays/special occasions only substance use type: does not use caffeine: Yes Type: carbonated beverages, coffee and tea ROS ROS ED Constitutional Constitutional ED: Denies chills or fever(s) Eyes Eyes: Denies change in vision ENT ENT ED: Reports other Details: Denies any mouth swelling ; Denies sore throat Cardiovascular Cardiovascular: Denies chest pain Respiratory/Chest Respiratory/Chest: Reports cough and dyspnea Gastrointestinal Gastrointestinal: Denies nausea or vomiting Musculoskeletal Musculoskeletal: Denies arthralgias or myalgias Integumentary Reports rash Neurologic Neurologic: Denies paresthesias or weakness Psychiatric Psychiatric: Denies anxiety EXAM Physical Exam Const Vital Signs: 12/26/23 22:02 12/26/23 22:06 12/26/23 23:35 Temperature 98.5 F 97.7 F L Temperature Source Oral Pulse Rate 105 H 101 H 101 H Respiratory Rate 16 16 16 Blood Pressure 138/87 H 138/87 H 133/91 H Blood Pressure Mean 104 104 105 Pulse Ox 99 99 100 Oxygen Delivery Method Room Air Room Air Positive well nourished and well developed General Appearance ED: well developed and NAD HEENT Reports moist mucous membranes HEENT Narrative: No edema of the mouth or uvula appreciated. Normal oropharynx. Eyes PERRL and EOMs intact bilaterally Neck supple Neck Narrative: No stridor Chest Wall inspection of chest normal and palpation of chest normal Resp normal respiratory effort and clear to auscultation bilaterally Auscultation: Negative for wheezes Cardio regular rate and regular rhythm Extremity normal to inspection General Extremety ED: Negative for edema or tenderness General Extremity: Negative for edema Neuro oriented x3 Sensorium / Orientation: alert Motor Exam: Negative for general weakness Psych mental status grossly normal Skin Skin Narrative: A few scattered splotches of erythema on her chest are present. No significant urticaria appreciated. No other skin changes appreciated. MDM MDM MDM Narrative Medical decision making narrative: Patient is evaluated for concern of further allergic reaction. She was treated for allergic reaction yesterday suspected to be from IV Reglan. Upon arrival patient symptoms have improved. Question if she might of had a mild biphasic reaction given she is about 24 hours out from her initial reaction. She is appropriately on Benadryl, methylprednisolone and famotidine. Will have her continue this. Patient has returned to baseline. Will be given return precautions. She verbalized agreement or stands plan. Do not think she needs to stop any of her current medications especially as her symptoms spontaneously resolved without any new medication this evening. When patient is given her discharge paperwork she started to have some burning sensation of her face and becomes at least flushed on the bilateral cheeks. Patient is reexamined. Has clear breath sounds and no swelling in her mouth or throat. No further hives appreciated. I am not sure if this is really an allergic reaction but patient is given additional dose of Benadryl. She states she immediately feels better with the symptoms and then ambulates out of the emergency room. Discharge Plan Triage Chief Complaint: Allergic Reaction ED Provider: Alondra Chi Dx/Rx/DC Orders Clinical Impression: Allergic reaction Instructions: ED General Allergic Reactions Prescriptions: No Action topiramate 100 mg tablet 100 mg PO QHS Rx Instructions: give with 25 mg tablet to = 125 mg medroxyprogesterone [Depo-Provera] 150 mg/mL suspension 150 mg IM .q10w Patient Comments: INJECT 1ML INTRAMUSCULARILY EVERY 12 WEEKS aripiprazole 5 mg tablet 10 mg PO DAILY fluoxetine 40 mg capsule 40 mg PO QHS topiramate 25 mg tablet 25 mg PO DAILY Patient Comments: take 1 tablet by mouth at bedtime Rx Instructions: give with 100 mg tablet to = 125 mg albuterol sulfate 90 mcg/actuation HFA aerosol inhaler 2 puff INHALATION PRN PRN (Reason: Wheezing) Patient Comments: inhale 2 puffs by mouth and INTO THE LUNGS every 4 hours if neede... (REFER TO PRESCRIPTION NOTES). trazodone 50 mg tablet 200 mg PO QHS Patient Comments: TAKE 1 OR 2 TABLETS BY MOUTH AT BEDTIME prazosin 1 mg capsule 1 mg PO DAILY melatonin 3 mg tablet 10 mg PO QHS PRN (Reason: sleep) metoclopramide HCl [Reglan] 5 mg tablet 5 mg PO DAILY PRN (Reason: nausea and vomiting) Qty: 10 0RF famotidine [Pepcid] 20 mg tablet 20 mg PO BID Qty: 7 0RF prednisone 20 mg tablet 60 mg PO DAILY Qty: 12 0RF diphenhydramine HCl [Benadryl] 25 mg capsule 25 mg PO TID Qty: 10 0RF potassium chloride 40 mEq/15 mL liquid 40 meq PO DAILY Qty: 75 0RF pantoprazole 40 mg tablet,delayed release (DR/EC) 40 mg PO BID Qty: 60 3RF carvedilol 12.5 mg tablet 12.5 mg PO BID Qty: 180 3RF Rx Instructions: must administer with a meal/food Primary Care Provider: Sury Catherine Referrals: Sury Catherine [Primary Care Provider] - Activity Restrictions/Additional Instructions: Continue taking your prescribed medications for allergic reaction. You might continue to have some intermittent hives and symptoms. If you have a hard time breathing please return to the emergency room. You may try taking additional dose of Benadryl for your symptoms as well Print Language: Monegasque Disposition Disposition: Home, Self Care Discharge Date/Time: 12/26/23 23:50
[2023-12-26 23:35] VITALS: BP 133/91; PULSE 101; RESP 16; TEMP 36.5; O2SAT 100
[2023-12-26] MEDS: DiphenhydrAMINE 25 MG Capsule PO (23:41)
== END 2023-12-26 23:50 | disposition home or self-care (01) ==
PROVIDERS: Emergency Provider Emergency Medicine; Visit Provider Emergency Medicine
DX: R06.02 Shortness of breath (principal); F31.9 Bipolar disorder, unspecified; K21.9 Gastro-esophageal reflux disease without esophagitis; K31.84 Gastroparesis; E03.9 Hypothyroidism, unspecified; G90.A Postural orthostatic tachycardia syndrome [POTS]; Z79.52 Long term (current) use of systemic steroids; F17.290 Nicotine dependence, other tobacco product, uncomplicated; R05.9 Cough, unspecified; L53.8 Other specified erythematous conditions; T45.0X5A Adverse effect of antiallergic and antiemetic drugs, initial encounter
CPT/HCPCS: 99282

== ENCOUNTER → 2024-05-19 | Outpatient (CLI) | payer MEDICAID, SELFPAY ==
[2024-05-19 15:37] LABS: Absolute Lymphocyte Count 2.19 X10^3/uL (0.83-4.51); Basophil# 0.03 X10^3/uL; Basophil% 0.4 % (0-1); Eosinophil# 0.14 X10^3/uL; Hematocrit 38.7 % (37-47); Hemoglobin 12.1 g/dL (12.0-15.0); Lymphocyte # 2.19 X10^3/ul (0.83-4.51); Lymphocyte % 31.8 % (19-41); Mean Corp Hgb Conc 31.3 g/dL (32-36); Mean Corpuscular Volume 76.6 fL (81-99); Mean Platelet Vol. 8.7 fl (6.2-12.0); Monocyte# 0.54 X10^3/uL; Monocyte% 7.8 % (0-10); NRBC Flagged by Analyzer 0 % (0-5); Neutrophil # 3.97 X10^3/uL (2.7-7.7); Neutrophil % 57.7 % (47-70); Platelet Count 463 K/mm3 (150-450); RBC Distribution Width CV 14.9 % (11.6-14.6); RBC Distribution Width SD 40.7 fl (35.1-43.9); Red Blood Count 5.05 M/mm3 (4.2-5.4); White Blood Count 6.9 K/mm3 (4.4-11.0)
[2024-05-19 16:01] LABS: BNP,B-Type NATRIURETIC PEPTIDE 15.4 pg/mL (0-100)
[2024-05-19 16:15] LABS: ALB/GLOB Ratio 0.8 RATIO (0.9-2.4); AST(SGOT) 11 U/L (15-37); Alanine Aminotransfer ALT/SGPT 14 U/L (13-56); Albumin, Serum 3.2 g/dL (3.2-5.0); Alkaline Phosphatase 106 U/L (45-117); Anion Gap 5 (5-15); BUN 9 mg/dL (7-18); BUN/Creat Ratio 11.7 RATIO (10-20); Calcium,Total 8.7 mg/dL (8.5-10.1); Chloride 112 mmol/L (98-107); Creatinine, Serum 0.77 mg/dL (0.55-1.02); EST Glomerular Filtration Rate 99 mL/min (>60); Est Glom Filt Rate - Afr Amer 120 mL/min (>60); Globulin 4.1 g/dL (2.2-4.2); Glucose 86 mg/dL (74-106); Magnesium 2.2 mg/dL (1.6-2.6); Potassium 3.3 mmol/L (3.5-5.1); Protein, Total 7.3 g/dL (6.4-8.2); Sodium Level 140 mmol/L (136-145)
== END | disposition home or self-care (01) ==
LOC: LAB 15:02
PROVIDERS: PCP Nurse Practitioner Family; Referring Provider Nurse Practitioner Family; Visit Provider Nurse Practitioner Family
DX: I10 Essential (primary) hypertension (principal); I49.8 Other specified cardiac arrhythmias; R00.0 Tachycardia, unspecified; R00.2 Palpitations; R55 Syncope and collapse; E87.6 Hypokalemia; E03.8 Other specified hypothyroidism; R06.00 Dyspnea, unspecified
CPT/HCPCS: 36415; 80053; 83735; 83880; 84443; 85025

== ENCOUNTER 2024-07-06 17:39 | Emergency (ER) | payer MEDICAID, SELFPAY ==
[2024-07-06 17:40] VITALS: BP 116/80; PULSE 115; RESP 18; TEMP 36.6; O2SAT 100; BMI 27.1
--- NOTE | 2024-07-06 18:12 | ED.RN ---
1808: LEFT BEFORE SEEING A PROVIDER. REGISTRATION NOTIFIED
== END 2024-07-06 18:15 | disposition left against medical advice (07) ==
LOC: ED 18:23
PROVIDERS: PCP Nurse Practitioner Family
DX: Z53.21 Procedure and treatment not carried out due to patient leaving prior to being seen by health care provider (principal)

== ENCOUNTER → 2024-08-04 | Outpatient (CLI) | payer MEDICAID, SELFPAY | END | disposition home or self-care (01) | LOC: PSN 12:07 | PROVIDERS: PCP Nurse Practitioner Family; Referring Provider Nurse Practitioner Family; Visit Provider Nurse Practitioner Family | DX: I10 Essential (primary) hypertension (principal); I49.8 Other specified cardiac arrhythmias; R00.0 Tachycardia, unspecified; R55 Syncope and collapse; E87.6 Hypokalemia | CPT/HCPCS: 93225; 93226 ==

== ENCOUNTER → 2024-08-13 | Outpatient (CLI) | payer MEDICAID, SELFPAY ==
--- NOTE | 2024-08-13 12:57 | ECHOD_ITS ---
Reason For Study Reason For Study: Dyspnea/SOB Procedure This was a 2D Doppler, Color Flow transthoracic echocardiogram. Exam performed in department. Left Ventricle Normal LV size. Left ventricular systolic function is normal. The left ventricular ejection fraction is 60 %. No regional wall motion abnormalities noted. Right Ventricle Normal RV size. Normal systolic function. Atria Normal left atrium. Normal right atrium. Mitral Valve Normal mitral valve. Tricuspid Valve Normal tricuspid valve. Aortic Valve Trisinus/trileaflet aortic valve. Pulmonic Valve Normal pulmonic valve. Great Vessels Normal aortic root. The pulmonary artery is normal size. Inferior vena cava collapse with respiration. Pericardium/Pleural No pericardial effusion. MMode/2D Measurements & Calculations LVIDd: 3.8 cm IVSd: 1.1 cm Ao root diam: 2.6 cm LVIDs: 2.3 cm LVPWd: 0.73 cm RVDd: 2.6 cm FS: 38.9 % LAV(MOD-bp): 15.0 ml LVAd ap4: 19.6 cm2 SV(MOD-sp4): 28.6 ml LAV(MOD-bp) Indexed: 8.7 ml/m2 LVLd ap4: 6.5 cm SI(MOD-sp4): 16.5 ml/m2 LAV(MOD-sp2): 15.9 ml EDV(MOD-sp4): 48.7 ml LAV(MOD-sp4): 12.8 ml EDV(sp4-el): 50.2 ml LVAs ap4: 11.1 cm2 LVLs ap4: 5.1 cm ESV(MOD-sp4): 20.1 ml ESV(sp4-el): 20.4 ml EF(MOD-sp4): 58.7 % EF(sp4-el): 59.3 % SV(sp4-el): 29.8 ml LA A4 area: 7.6 cm2 LA dimension(2D): 2.4 cm RA A4 area: 6.6 cm2 Time Measurements MV dec time: 0.11 sec Doppler Measurements & Calculations MV E max gustavo: 104.1 cm/sec Lat Peak E' Gustavo: 17.5 cm/sec Med Peak E' Gustavo: 12.0 cm/sec MV A max gustavo: 101.6 cm/sec E/E' lat: 6.0 E/E' med: 8.7 MV E/A: 1.0 MV V2 max: 166.1 cm/sec Ao V2 max: 130.8 cm/sec LV V1 max: 117.3 cm/sec MV max P.0 mmHg Ao max P.8 mmHg LV V1 max P.5 mmHg MV V2 mean: 90.8 cm/sec Ao V2 mean: 100.0 cm/sec LV V1 mean P.1 mmHg MV mean P.8 mmHg Ao mean P.4 mmHg LV V1 mean: 83.6 cm/sec MV V2 VTI: 19.8 cm Ao V2 VTI: 22.6 cm LV V1 VTI: 17.1 cm AV (velocity ratio): 0.76 PA V2 max: 118.4 cm/sec TR max gustavo: 246.9 cm/sec TR max P.4 mmHg ECHO/Echo Complete Interpretation Summary Normal LV size. Left ventricular systolic function is normal. The left ventricular ejection fraction is 60 %. Structurally normal valves. Ordering Physician: Zeus Wood Referring Physician: Zeus Wood Performed By: Kobi Lira RCS
== END | disposition home or self-care (01) ==
LOC: CVS 12:57
PROVIDERS: PCP Nurse Practitioner Family; Referring Provider Nurse Practitioner Family; Visit Provider Nurse Practitioner Family
DX: I10 Essential (primary) hypertension (principal); R06.02 Shortness of breath; I49.8 Other specified cardiac arrhythmias; R00.0 Tachycardia, unspecified; R00.2 Palpitations; R55 Syncope and collapse; E87.6 Hypokalemia; E03.8 Other specified hypothyroidism
CPT/HCPCS: 93306

== ENCOUNTER 2024-10-12 08:09 | Emergency (ER) | payer MEDICAID, SELFPAY ==
[2024-10-12 08:10] VITALS: BP 119/90; PULSE 111; RESP 16; TEMP 35.8; O2SAT 100; BMI 26.4
--- NOTE | 2024-10-12 08:51 | RAD_ITS ---
PROCEDURE: CHEST PA AND LATERAL 10/12/2024 REASON FOR EXAM: RECENT EGD TECHNIQUE: CHEST PA AND LATERAL COMPARISON: November 27, 2023 FINDINGS: Heart size and mediastinal configuration are within normal limits. There is no focal infiltrate or consolidation. There is no pneumothorax or effusion. There is no acute bony abnormality. There is no visible atherosclerosis. RAD/Chest PA and Lateral IMPRESSION: No acute process is identified in the chest. Reading Location: [facility]
[2024-10-12] MEDS: Ketorolac 30 MG/ML Syringe IM (09:01)
--- NOTE | 2024-10-12 09:01 | EX.ED.GENINJ ---
HPI History of Present Illness Chief Complaint: Other, Pain/Inj Narrative Narrative: Chief complaint and HPI: Left neck pain. 24-year-old female with past medical history of gastroparesis, GERD, chronic back pain presents for evaluation of left neck pain. Patient states last week she had an EGD. She states since that time she has been having intermittent left neck pain. States she has not tried her home muscle relaxers. She denies any injury or trauma. Denies any fever, chills, URI symptoms, chest pain, shortness of breath, abdominal pain, nausea, vomiting. Denies any weakness, numbness, tingling. Denies any difficulty swallowing. Review of systems: See HPI Medications: As listed on the chart Allergies: As listed on the chart PFSH: Per chart Vital signs: As listed on the chart. Reviewed. Physical exam: Gen: A&O x3, NAD Head: Normocephalic, atraumatic Eyes: No sclera icterus, conjunctiva clear, PERRL, EOMI ENT: TMs clear BL, moist mucous membranes, posterior oropharynx unremarkable, uvula midline, tonsils not enlarged Neck: Trachea midline, No JVD, Full ROM, No meningismus, no midline spinal tenderness, no bony step-offs, mild tenderness to palpation of the left paraspinal musculature of the cervical spine-recreates patient's pain CV: RRR, no murmurs, no peripheral edema Resp: Lungs CTA BL, no w/r/c, no crepitus GI: Abd soft, non-distended, non-tender, no r/r/g Musc: Full ROM, no deformity, radial pulses +2 bilaterally Skin: Warm, dry, no rash Neuro: Alert, oriented, grossly intact, sensation intact Psych: Cooperative, appropriate mood and affect [facility] Medical History Goiter COVID-19 Smoker Gastroparesis Schizophrenia OCD (obsessive compulsive disorder) Tachycardia POTS (postural orthostatic tachycardia syndrome) Diarrhea PTSD (post-traumatic stress disorder) Upper abdominal pain GERD (gastroesophageal reflux disease) Endometriosis Pelvic pain Migraine Depression Asthma Anxiety Home Medications ?Medication ?Instructions ?Recorded ?Last Taken ?Type albuterol sulfate 90 mcg/actuation 2 puff inhalation PRN PRN Wheezing 06/14/21 Unknown History aerosol inhaler medroxyprogesterone 150 mg/mL 150 mg IM .q10w 01/04/22 Unknown History intramuscular suspension (Depo-Provera) budesonide-formoterol HFA 80 2 puff inhalation BID 05/19/24 Unknown History mcg-4.5 mcg/actuation aerosol inhaler (Symbicort) lamotrigine 50 mg disintegrating 50 mg PO BID 05/19/24 Unknown History tablet prazosin 1 mg capsule 1 mg PO BID PTSD 05/19/24 Unknown History topiramate 100 mg tablet 100 mg PO QDAY 05/19/24 Unknown History carvedilol 12.5 mg tablet 12.5 mg PO BID #180 tabs 07/27/24 Unknown Rx aripiprazole 10 mg tablet 10 mg PO QDAY #90 tabs 09/30/24 Unknown Rx etodolac 400 mg tablet 400 mg PO BID 09/30/24 Unknown History lubiprostone 8 mcg capsule 8 mcg PO BID 09/30/24 Unknown History trazodone 100 mg tablet 100 - 200 mg PO QHS 09/30/24 Unknown History Allergy/AdvReac Type Severity Reaction Status Date / Time metoclopramide (From Reglan) Allergy Severe Anaphylaxis Verified 10/12/24 08:10 coconut Allergy Mild NEEDS Verified 10/12/24 08:10 FOLLOW-UP gabapentin Allergy Rash Verified 10/12/24 08:10 glycerin (From Nasal-Ease) Allergy Swelling Verified 10/12/24 08:10 methylcellulose (From Allergy Swelling Verified 10/12/24 08:10 Nasal-Ease) sertraline (From Zoloft) Allergy Anaphylaxis Verified 10/12/24 08:10 silicone Allergy Rash Verified 10/12/24 08:10 sodium chloride (From Allergy Swelling Verified 10/12/24 08:10 Nasal-Ease) zinc (From Nasal-Ease) Allergy Swelling Verified 10/12/24 08:10 lactose AdvReac Upset Verified 10/12/24 08:10 Stomach Family History Father Anxiety Depression Asthma Hypertension Mother Asthma Diabetes Anxiety Depression CAD (coronary artery disease) Myocardial infarction, Onset Age: 42 Brother Oleksandr-Danlos syndrome Grandmother Myocardial infarction, Onset Age: 41 Grandfather Myocardial infarction, Onset Age: 38 Surgical History History of colonoscopy History of esophagogastroduodenoscopy (EGD) Hx of laparoscopy Social History household members: none Smoking Status: Current some day smoker tobacco type: e-cigarettes alcohol intake: current alcohol intake frequency: holidays/special occasions only substance use type: does not use caffeine: Yes Type: carbonated beverages, coffee and tea EXAM Physical Exam Const Vital Signs: 10/12/24 08:10 10/12/24 08:32 Temperature 96.4 F L Temperature Source Temporal Pulse Rate 111 H Respiratory Rate 16 Respiratory Effort Normal Respiratory Pattern Normal Blood Pressure 119/90 H Blood Pressure Mean 99 Pulse Ox 100 Oxygen Delivery Method Room Air MDM MDM MDM Narrative Medical decision making narrative: 24-year-old female with past medical history of gastroparesis, GERD, chronic back pain presents for evaluation of left neck pain. Patient states last week she had an EGD. She states since that time she has been having intermittent left neck pain. Denies any specific injury or trauma. Denies any infectious symptoms. Denies any abdominal or swallowing issues. Differential diagnosis includes but is not limited to myofascial spasm, cervical strain, suspect less likely EGD complication. Patient drove today therefore muscle relaxer will not be given. Patient states she already has a prescription at home that she can take. Will give IM Toradol. Will get chest x-ray to assess for complications from EGD such as pneumothorax or perforation although low suspicion. I do not think any x-ray of the cervical spine is needed at this time. Chest x-ray was personally reviewed and interpreted by me, ED physician. No pneumonia, effusion, cardiomegaly, pneumothorax, subcutaneous emphysema. Radiology in agreement. On reevaluation, patient's pain is improved. Patient stable to discharge home. Suspect myofascial spasm. Okay for home muscle relaxers. Follow-up with PCP. Return precautions explained. She affirmed understanding of plan. Impression: 1. Left neck pain 2. Myofascial spasm Radiography Diagnostic Testing: Clinical Impression(s) from Imaging Studies Chest X-Ray 10/12/24 08:51 IMPRESSION: No acute process is identified in the chest. Reading Location: [facility] Discharge Plan Triage Chief Complaint: Other, Pain/Inj ED Provider: Kobi Victor Dx/Rx/DC Orders Prescriptions: No Action medroxyprogesterone [Depo-Provera] 150 mg/mL suspension 150 mg IM .q10w Patient Comments: INJECT 1ML INTRAMUSCULARILY EVERY 12 WEEKS topiramate 100 mg tablet 100 mg PO QDAY Rx Instructions: Take with 25 mg to = 125 mg daily lamotrigine 50 mg tablet,disintegrating 50 mg PO BID budesonide-formoterol [Symbicort] 80-4.5 mcg/actuation HFA aerosol inhaler 2 puff inhalation BID etodolac 400 mg tablet 400 mg PO BID trazodone 100 mg tablet 100 - 200 mg PO QHS lubiprostone 8 mcg capsule 8 mcg PO BID aripiprazole 10 mg tablet 10 mg PO QDAY Qty: 90 1RF albuterol sulfate 90 mcg/actuation HFA aerosol inhaler 2 puff INHALATION PRN PRN (Reason: Wheezing) Patient Comments: inhale 2 puffs by mouth and INTO THE LUNGS every 4 hours if neede... (REFER TO PRESCRIPTION NOTES). prazosin 1 mg capsule 1 mg PO BID carvedilol 12.5 mg tablet 12.5 mg PO BID Qty: 180 3RF Rx Instructions: must administer with a meal/food Primary Care Provider: Dian Baez NP Referrals: Dian Baez NP, [facility] [Primary Care Provider] - Print Language: Mongolian
[2024-10-12 10:06] VITALS: BP 119/90; PULSE 111; RESP 16; TEMP 35.8; O2SAT 100
== END 2024-10-12 10:10 | disposition home or self-care (01) ==
PROVIDERS: Emergency Provider Surgery; PCP Nurse Practitioner Family; Visit Provider Surgery
DX: M54.2 Cervicalgia (principal); J45.909 Unspecified asthma, uncomplicated; Z79.51 Long term (current) use of inhaled steroids; F43.10 Post-traumatic stress disorder, unspecified; F17.290 Nicotine dependence, other tobacco product, uncomplicated; M62.838 Other muscle spasm
CPT/HCPCS: 71046; 96372; 99282

== ENCOUNTER 2024-11-10 18:33 | Emergency (ER) | payer MEDICAID, SELFPAY ==
[2024-11-10 18:34] VITALS: BP 120/70; PULSE 94; RESP 16; TEMP 37; O2SAT 99; BMI 26.2
[2024-11-10 19:00] VITALS: BP 120/70; PULSE 94; RESP 18; TEMP 37; O2SAT 99
[2024-11-10 19:21] LABS: Mucous, Urine 0 SEEN /hpf (<or=2+)
[2024-11-10 19:28] LABS: Hematocrit 38.8 % (37-47); Hemoglobin 12.7 g/dL (12.0-15.0); Immature Granulocytes Count 0.020 X10^3/uL (0.0-0.0); Mean Corp Hgb Conc 32.7 g/dL (32-36); Mean Corpuscular Volume 78.2 fL (81-99); Mean Platelet Vol. 9.1 fl (6.2-12.0); NRBC Flagged by Analyzer 0 % (0-5); Platelet Count 380 K/mm3 (150-450); RBC Distribution Width CV 14.6 % (11.6-14.6); RBC Distribution Width SD 41.5 fl (35.1-43.9); Red Blood Count 4.96 M/mm3 (4.2-5.4); White Blood Count 5.8 K/mm3 (4.4-11.0)
[2024-11-10 19:31] LABS: Glucose, Dipstick Normal (Normal); Ketone-Dipstick Negative (Negative); Leukocyte Esterase-Dipstick 25 /ul (Negative); Nitrite-Dipstick Negative (Negative); Occult Blood-Urine 10 /ul (Negative); Protein-Dipstick 15 mg/dl (Negative); Specific Gravity, Urine 1.010 (1.002-1.030); Urine Bilirubin Dipstick Negative (Negative)
[2024-11-10 19:37] LABS: Color, Urine Yellow (Yellow)
[2024-11-10 19:39] LABS: Internal QC Validated? YES +Cl - CLEAR BKGD; Pregnancy, Serum, hCG Quali. NEGATIVE Negative; Record Kit Lot#, Serum Preg. 962302
[2024-11-10 19:44] LABS: AST(SGOT) 14 U/L (<=31); Alanine Aminotransfer ALT/SGPT 11 U/L (<=34); Albumin, Serum 4.1 g/dL (3.5-5.0); Alkaline Phosphatase 82 U/L (35-104); Anion Gap 11 (5-15); BUN 8 mg/dL (4-19); BUN/Creat Ratio 8.6 RATIO (10-20); Calcium,Total 9.1 mg/dL (7.6-11.0); Carbon Dioxide 21.6 mmol/L (21.0-32.0); Chloride 105 mmol/L (98-108); Estimated Creatinine Clearance 93.96 ml/min (50-250); Globulin 2.9 g/dL (2.2-4.2); Glucose 113 mg/dL (70-99); Lipase 18 U/L (13-75); Potassium 3.3 mmol/L (3.3-5.1)
[2024-11-10 20:00] VITALS: BP 128/81; PULSE 73; RESP 16; TEMP 36.9; O2SAT 100
--- NOTE | 2024-11-10 20:21 | CT_ITS ---
PROCEDURE: ABDOMEN/PELVIS W IV CONT ONLY 11/10/2024 REASON FOR EXAM: LLQ ABD PAIN TECHNIQUE: ABDOMEN/PELVIS W IV CONT ONLY Coronal and Sagittal reconstruction series were provided. CONTRAST: 100 mL of Isovue 370 One or more dose reduction techniques were used (e.g., Automated exposure control, adjustment of the mA and/or kV according to patient size, use of iterative reconstruction technique. RADIATION DOSE SUMMARY: DLP: 678 mGycm COMPARISON: 12/24/23 FINDINGS: Limited sections of the lung bases demonstrate no focal pulmonary mass or consolidations. The liver, spleen, pancreas, and both adrenal glands demonstrate no acute findings. The gallbladder is unremarkable. The stomach is unremarkable. The small bowel loops are not dilated. The appendix is normal. No colonic obstruction. There is no free air or significant free fluid. The kidneys are unremarkable. Mildly thickened urinary bladder wall which may reflect cystitis vs nondistention; consider correlation with urinalysis. The pelvic structures are intact. There is no solid pelvic mass. No significant lymphadenopathy. The aorta and IVC demonstrate no acute findings. Visualized osseous structures demonstrate no acute abnormality. CT/Abdomen/Pelvis W IV Cont ONLY IMPRESSION: Mildly thickened urinary bladder wall which may reflect cystitis vs nondistenti on; consider correlation with urinalysis. Otherwise, no acute intra-abdominal process. Reading Location: [facility]
[2024-11-10 20:23] LABS: Transitional Epithelial - Ur 0-5 SEEN /hpf (0-5)
[2024-11-10 20:24] LABS: Red Blood Cells-Urine 0-5 SEEN /hpf (0-5); Squamous Epithelial Cells - UA 0-5 SEEN /hpf (5-10)
--- NOTE | 2024-11-10 20:37 | ED.VIS.GI ---
HPI HPI - GI History of Present Illness Chief Complaint: Abd Pain Informant: patient Narrative Narrative: Patient is 24-year-old female with history of POTS, bipolar disorder, abdominal pain, anxiety and PTSD presenting with worsening left lower quadrant abdominal pain, low-grade fevers, nausea, abnormal bowel movements and headache. Patient states in June 2023 she underwent a hernia repair surgery where it send likely also burned-out endometriosis in her hands did possible lysis of adhesions. States it was done at . She states that in February or March 2024 she felt a pop in the area of her scar in her left lower quadrant. She states she has been having issues with pain since. The pains been particularly bad the past 2 to 3 weeks. She notes that in June of this year she did have an ultrasound by her [employer] both internal and external which was normal. The pain has been worse over the past few days. She notes that she has had associated nausea, vomiting, headache, back pain and change in her bowel movements. She states she has a lot of constipation and has had a small amount of blood in her stool yesterday. She states when she has bowel movements she is very thin soft bowel movements. She never had a colonoscopy. She reports low-grade temperature of 99 but no actual fever. States the pain is worse after she urinates. She also notes when she stretches she has vaginal bleeding. States she does not get menstrual cycles as she is on the Depo shot. [facility] Medical History Goiter COVID-19 Smoker Gastroparesis Schizophrenia OCD (obsessive compulsive disorder) Tachycardia POTS (postural orthostatic tachycardia syndrome) Diarrhea PTSD (post-traumatic stress disorder) Upper abdominal pain GERD (gastroesophageal reflux disease) Endometriosis Pelvic pain Migraine Depression Asthma Anxiety Home Medications ?Medication ?Instructions ?Recorded ?Last Taken ?Type albuterol sulfate 90 mcg/actuation 2 puff inhalation PRN PRN Wheezing 06/14/21 Unknown History aerosol inhaler medroxyprogesterone 150 mg/mL 150 mg IM .q10w 01/04/22 Unknown History intramuscular suspension (Depo-Provera) budesonide-formoterol HFA 80 2 puff inhalation BID 05/19/24 Unknown History mcg-4.5 mcg/actuation aerosol inhaler (Symbicort) lamotrigine 50 mg disintegrating 50 mg PO BID 05/19/24 Unknown History tablet prazosin 1 mg capsule 1 mg PO BID PTSD 05/19/24 Unknown History topiramate 100 mg tablet 100 mg PO QDAY 05/19/24 Unknown History carvedilol 12.5 mg tablet 12.5 mg PO BID #180 tabs 07/27/24 Unknown Rx aripiprazole 10 mg tablet 10 mg PO QDAY #90 tabs 09/30/24 Unknown Rx etodolac 400 mg tablet 400 mg PO BID PRN 09/30/24 Unknown History lubiprostone 8 mcg capsule 8 mcg PO BID 09/30/24 Unknown History bupropion HCl 150 mg 24 hr tablet, 150 mg PO QAM #30 tabs 10/28/24 Unknown Rx extended release (Wellbutrin XL) trazodone 100 mg tablet 100 - 200 mg (1 - 2 x 100 mg) PO 10/28/24 Unknown Rx QHS #180 tabs diphenhydramine HCl 25 mg capsule 25 - 50 mg PO DAILY PRN itch 11/10/24 Unknown History (Banophen) epinephrine 0.3 mg/0.3 mL 0.3 ml IM UD 11/10/24 Unknown History injection, auto-injector tizanidine 2 mg tablet 2 mg PO BID PRN 11/10/24 Unknown History Allergy/AdvReac Type Severity Reaction Status Date / Time metoclopramide (From Reglan) Allergy Severe Anaphylaxis Verified 11/10/24 18:36 coconut Allergy Mild NEEDS Verified 11/10/24 18:36 FOLLOW-UP gabapentin Allergy Rash Verified 11/10/24 18:36 glycerin (From Nasal-Ease) Allergy Swelling Verified 11/10/24 18:36 methylcellulose (From Allergy Swelling Verified 11/10/24 18:36 Nasal-Ease) sertraline (From Zoloft) Allergy Anaphylaxis Verified 11/10/24 18:36 silicone Allergy Rash Verified 11/10/24 18:36 sodium chloride (From Allergy Swelling Verified 11/10/24 18:36 Nasal-Ease) zinc (From Nasal-Ease) Allergy Swelling Verified 11/10/24 18:36 lactose AdvReac Upset Verified 11/10/24 18:36 Stomach Family History Father Anxiety Depression Asthma Hypertension Mother Asthma Diabetes Anxiety Depression CAD (coronary artery disease) Myocardial infarction, Onset Age: 42 Brother Oleksandr-Danlos syndrome Grandmother Myocardial infarction, Onset Age: 41 Grandfather Myocardial infarction, Onset Age: 38 Surgical History History of colonoscopy History of esophagogastroduodenoscopy (EGD) Hx of laparoscopy Social History household members: none Smoking Status: Current every day smoker tobacco type: e-cigarettes alcohol intake: current alcohol intake frequency: holidays/special occasions only substance use type: does not use caffeine: Yes Type: carbonated beverages, coffee and tea ROS ROS ED Constitutional Constitutional ED: Reports chills, fever(s) and subjective Cardiovascular Cardiovascular: Denies chest pain Respiratory/Chest Respiratory/Chest: Denies cough or dyspnea Gastrointestinal Gastrointestinal: Reports abdominal pain, nausea and vomiting Genitourinary Genitourinary ED: Reports dysuria; Denies hematuria Musculoskeletal Musculoskeletal: Reports back pain Integumentary Denies rash Neurologic Neurologic: Reports headache(s) Hematologic/Lymphatic Hematologic/Lymphatic: Denies easy bleeding or easy bruising EXAM Physical Exam Const Vital Signs: 11/10/24 18:34 11/10/24 19:00 11/10/24 20:00 Temperature 98.6 F 98.6 F 98.5 F Temperature Source Oral Oral Oral Pulse Rate 94 94 73 Respiratory Rate 16 18 16 Blood Pressure 120/70 120/70 128/81 H Blood Pressure Mean 86 86 96 Pulse Ox 99 99 100 Oxygen Delivery Method Room Air Room Air Room Air 11/10/24 21:00 11/10/24 22:00 Temperature 98.5 F 98.5 F Temperature Source Oral Oral Pulse Rate 84 82 Respiratory Rate 16 16 Blood Pressure 123/68 H 110/57 L Blood Pressure Mean 86 74 Pulse Ox 100 100 Oxygen Delivery Method Room Air Room Air Positive well nourished and well developed General Appearance ED: well developed and NAD; Negative for pallor HEENT Reports moist mucous membranes Eyes PERRL Neck supple Neck Narrative: No nuchal rigidity Resp normal respiratory effort and clear to auscultation bilaterally Cardio regular rate and regular rhythm GI non-distended Auscultation: normoactive bowel sounds Palpation: soft and tender LLQ and suprapubic; Negative for guarding or rigid Back/Spine General Back: CVA tenderness left Extremity full ROM General Extremety ED: Negative for edema General Extremity: Negative for edema Neuro Sensorium / Orientation: alert, oriented to person, oriented to place and oriented to time Motor Exam: Negative for general weakness Psych mental status grossly normal and thought process normal Skin no wounds General Skin Exam: Negative for jaundice or pallor MDM MDM MDM Narrative Medical decision making narrative: Patient is evaluated for headache, worsening left lower quadrant abdominal pain, back pain, urinary symptoms low-grade temperatures. The symptoms are more chronic but flared up over the past few days. She has been seen by multiple specialist. Differential includes chronic pain, interstitial cystitis, urinary tract infection, diverticulitis, colitis, bowel obstruction, pain from endometriosis, pyelonephritis, renal colic. Workup largely normal. She has a normal CBC with no anemia. She reports some blood in her stool however her BUN is normal and she is not anemic. I do not think she requires further emergent workup for GI bleeding. Her CMP is normal. test is negative. Urinalysis is not consistent with infection and grossly normal. CT abdomen pelvis obtained which shows mild thickening of the urinary bladder which could be associated with cystitis versus underdistention. Urinalysis is not consistent with urinary tract infection and I do not think she requires antibiotics. She does report history of C. difficile and I do not think empiric antibiotics is appropriate given her history. Counseled that the cause of her symptoms is not clear at this time I think she can follow-up safely outpatient with her urologist and PCP. She is agreeable this plan of care. She is given migraine cocktail in the ER as she is complaining of a headache including Toradol, IV fluids and Zofran. She states that she still does not feel good but would like to go home and sleep. Comfortable plan of care. Discharged home in stable condition peer Lab Data Attestation: I reviewed the patient's lab results. Labs: Laboratory Results - last 24 hr 11/10/24 11/10/24 18:57 19:03 WBC 5.8 RBC 4.96 Hgb 12.7 Hct 38.8 MCV 78.2 L MCH 25.6 L MCHC 32.7 RDW Std Deviation 41.5 RDW Coeff of Anoop 14.6 Plt Count 380 MPV 9.1 Immature Gran % (Auto) 0.300 Neut % (Auto) 58.5 Lymph % (Auto) 33.2 Randall % (Auto) 6.4 Eos % (Auto) 1.4 Baso % (Auto) 0.2 Absolute Neuts (auto) 3.4 Absolute Lymphs (auto) 1.92 Nucleated RBC % 0 Sodium 138 Potassium 3.3 Chloride 105 Carbon Dioxide 21.6 Anion Gap 11 BUN 8 Creatinine 0.89 Estim Creat Clear Calc 93.96 Est GFR (MDRD) Non-Af 94 BUN/Creatinine Ratio 8.6 L Glucose 113 H Calcium 9.1 Total Bilirubin 0.22 AST 14 ALT 11 Alkaline Phosphatase 82 Total Protein 7.0 Albumin 4.1 Globulin 2.9 Albumin/Globulin Ratio 1.4 Lipase 18 Serum , Qual NEGATIVE Urine Color Yellow Urine Clarity Clear Urine pH 7.0 Ur Specific [place] 1.010 Urine Protein 15 H Urine Glucose (UA) Normal Urine Ketones Negative Urine Occult Blood 10 H Urine Nitrite Negative Urine Bilirubin Negative Urine Urobilinogen Normal Ur Leukocyte Esterase 25 H Urine RBC 0-5 SEEN Urine WBC 0-5 SEEN Ur Squamous Epith Cells 0-5 SEEN Ur Transition Epith Cell 0-5 SEEN Urine Bacteria 0 SEEN Urine Mucus 0 SEEN Radiography Diagnostic Testing: Clinical Impression(s) from Imaging Studies Abdomen/Pelvis CT 11/10/24 20:21 IMPRESSION: Mildly thickened urinary bladder wall which may reflect cystitis vs nondistention; consider correlation with urinalysis. Otherwise, no acute intra-abdominal process. Reading Location: [facility] Discharge Plan Triage Chief Complaint: Abd Pain ED Provider: Alondra Chi Dx/Rx/DC Orders Clinical Impression: Abdominal pain, left lower quadrant, Chronic pelvic pain in female, Headache Instructions: ED Abdominal Pain Unkn Cause Fem Prescriptions: No Action medroxyprogesterone [Depo-Provera] 150 mg/mL suspension 150 mg IM .q10w Patient Comments: INJECT 1ML INTRAMUSCULARILY EVERY 12 WEEKS topiramate 100 mg tablet 100 mg PO QDAY Rx Instructions: Take with 25 mg to = 125 mg daily lamotrigine 50 mg tablet,disintegrating 50 mg PO BID budesonide-formoterol [Symbicort] 80-4.5 mcg/actuation HFA aerosol inhaler 2 puff inhalation BID etodolac 400 mg tablet 400 mg PO BID PRN lubiprostone 8 mcg capsule 8 mcg PO BID aripiprazole 10 mg tablet 10 mg PO QDAY Qty: 90 1RF bupropion HCl [Wellbutrin XL] 150 mg tablet extended release 24 hr 150 mg PO QAM Qty: 30 1RF trazodone 100 mg tablet 100 - 200 mg PO QHS Qty: 180 1RF albuterol sulfate 90 mcg/actuation HFA aerosol inhaler 2 puff INHALATION PRN PRN (Reason: Wheezing) Patient Comments: inhale 2 puffs by mouth and INTO THE LUNGS every 4 hours if neede... (REFER TO PRESCRIPTION NOTES). prazosin 1 mg capsule 1 mg PO BID tizanidine 2 mg tablet 2 mg PO BID PRN diphenhydramine HCl [Banophen] 25 mg capsule 25 - 50 mg PO DAILY PRN (Reason: itch) epinephrine 0.3 mg/0.3 mL auto-injector 0.3 ml IM UD carvedilol 12.5 mg tablet 12.5 mg PO BID Qty: 180 3RF Rx Instructions: must administer with a meal/food Primary Care Provider: Dian Baez NP Referrals: Dian Baez NP, [employer] [Primary Care Provider] - Activity Restrictions/Additional Instructions: Follow-up with your GI specialist and urology for further evaluation the symptoms. Your workup today was largely reassuring and normal however the cause of your symptoms is not clear. Print Language: Khmer Disposition Disposition: Home, Self Care
[2024-11-10] MEDS: 0.9% Normal Saline (1000mL) 1,000 ML 999 ML IV (20:39)
[2024-11-10 21:00] VITALS: BP 123/68; PULSE 84; RESP 16; TEMP 36.9; O2SAT 100
[2024-11-10 22:00] VITALS: BP 110/57; PULSE 82; RESP 16; TEMP 36.9; O2SAT 100
[2024-11-10 22:45] VITALS: BP 113/70; PULSE 72; RESP 16; TEMP 36.6; O2SAT 100
== END 2024-11-10 22:46 | disposition home or self-care (01) ==
PROVIDERS: Emergency Provider Emergency Medicine; PCP Nurse Practitioner Family; Visit Provider Emergency Medicine
DX: R10.32 Left lower quadrant pain (principal); F20.9 Schizophrenia, unspecified; F31.9 Bipolar disorder, unspecified; F41.9 Anxiety disorder, unspecified; R51.9 Headache, unspecified; R10.2 Pelvic and perineal pain; G89.29 Other chronic pain; J45.909 Unspecified asthma, uncomplicated; Z79.51 Long term (current) use of inhaled steroids; F43.10 Post-traumatic stress disorder, unspecified; Z79.899 Other long term (current) drug therapy; F17.290 Nicotine dependence, other tobacco product, uncomplicated
CPT/HCPCS: 74177; 80053; 81001; 83690; 84703; 85025; 96361; 96374; 96375; 99284; Q9967; A4216; J2405

== ENCOUNTER 2024-12-20 14:09 | Emergency (ER) | payer MEDICAID, SELFPAY ==
[2024-12-20 14:10] VITALS: BP 131/92; PULSE 65; RESP 16; TEMP 37.1; O2SAT 99; BMI 26.2
--- NOTE | 2024-12-20 14:37 | CT_ITS ---
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 Rule out abscess. TECHNIQUE: Procedure Code: CTNEW Modality: CT Procedure: SOFT TISSUE NECK WITH CONTRAST CONTRAST: Please see CT data VOLUME: Please see CT mL One or more dose reduction techniques were used (e.g., Automated exposure control, adjustment of the mA and/or kV according to patient size, use of iterative reconstruction technique). RADIATION DOSE SUMMARY: CTDlvol: 12.06 mGy DLP: 388.61 mGycm COMPARISON: None FINDINGS: Soft tissues: No prevertebral soft tissue swelling. No prevertebral soft tissue hematoma. No retropharyngeal effusion. No posterior paraspinal soft tissue hematoma. No cervical soft tissue emphysema. Pharynx: There is mild heterogeneous enlargement of the tonsils and adenoids. Enlargement is most pronounced at the palatine tonsils. There is a faintly visualized small peripherally enhancing centrally hypoenhancing 5.3 x 3.6 mm lesion within the anterior left palatine tonsil (image 67 axial soft tissue neck) likely representing a developing small tonsillar abscess. No other tonsillar or peritonsillar abscess is seen. Parapharyngeal fat planes are preserved. Salivary glands: Appearance of the parotid and submandibular glands is unremarkable. No salivary gland calcification or inflammatory change. Lymph nodes: Multiple cervical lymph node seen bilaterally [id number] measuring up to 10 mm in short axis. Clinical follow-up is advised. These may represent reactive lymph nodes. Larynx: The visualized airway does not appear significantly compromised. The epiglottis is not thickened. Visualized vocal cords appear symmetric. Thyroid: Appearance of the thyroid gland is unremarkable. No discrete thyroid nodule seen. Dentition: There is mild dental decay with maxillary molar periapical lucencies on the left. Follow-up with dental exam is advised. Osseous: No acute osseous injury or malalignment is seen. No bone lesion, bone destruction or periosteal reaction. Paranasal sinuses: Mild mucosal thickening noted within the left maxillary sinus. No paranasal sinus air-fluid levels or complete opacification. Middle ear cavities: No opacification of the middle ear cavities. Mastoid air cells: No mastoid air cell air-fluid levels. Vascular: No abrupt major arterial occlusion or visible thrombus seen. Orbits: The ocular globes are symmetric. Retro-orbital fat is preserved bilaterally. No orbital inflammatory changes seen. CT/Soft Tissue Neck WITH Contrast IMPRESSION: Slight enlargement of the adenoids and tonsils with a suspected 5 mm x 3 mm ant erior left developing tonsillar abscess. - Borderline left cervical lymphadenopathy likely reactive nodes. Clinical follow-up is advised. - Mild dental decay [id number]. Clinical follow-up is advised. - Other findings discussed above in detail. Reading Location: [id number]
--- NOTE | 2024-12-20 14:39 | EX.ED.VIS.UR ---
HPI HPI - URI History of Present Illness Chief Complaint: Sore Throat Narrative Narrative: Patient is a 24-year-old female presenting to the emergency department for sore throat. Patient has a past medical history as below. Patient states for the past week she has had a sore throat. States gotten worse over the past few days. She went to urgent care and they told her that she had an abscess and recommended that she come here for CT imaging. She has been taking Tylenol and Motrin for pain control at home. No changes to her voice. No fevers, nuchal rigidity, neck stiffness. Able to tolerate PO. No difficulty breathing. States she has had sick contacts. ROS ROS ED ROS Narrative See HPI PFSH PFS Medical History Goiter COVID-19 Smoker Gastroparesis Schizophrenia OCD (obsessive compulsive disorder) Tachycardia POTS (postural orthostatic tachycardia syndrome) Diarrhea PTSD (post-traumatic stress disorder) Upper abdominal pain GERD (gastroesophageal reflux disease) Endometriosis Pelvic pain Migraine Depression Asthma Anxiety Home Medications ?Medication ?Instructions ?Recorded ?Last Taken ?Type albuterol sulfate 90 mcg/actuation 2 puff inhalation PRN PRN Wheezing 06/14/21 Unknown History aerosol inhaler medroxyprogesterone 150 mg/mL 150 mg IM .q10w 01/04/22 Unknown History intramuscular suspension (Depo-Provera) budesonide-formoterol HFA 80 2 puff inhalation BID 05/19/24 Unknown History mcg-4.5 mcg/actuation aerosol inhaler (Symbicort) lamotrigine 50 mg disintegrating 50 mg PO BID 05/19/24 Unknown History tablet prazosin 1 mg capsule 1 mg PO BID PTSD 05/19/24 Unknown History topiramate 100 mg tablet 100 mg PO QDAY 05/19/24 Unknown History aripiprazole 10 mg tablet 10 mg PO QDAY #90 tabs 09/30/24 Unknown Rx etodolac 400 mg tablet 400 mg PO BID PRN 09/30/24 Unknown History bupropion HCl 150 mg 24 hr tablet, 150 mg PO QAM #30 tabs 10/28/24 Unknown Rx extended release (Wellbutrin XL) trazodone 100 mg tablet 100 - 200 mg (1 - 2 x 100 mg) PO 10/28/24 Unknown Rx QHS #180 tabs diphenhydramine HCl 25 mg capsule 25 - 50 mg PO DAILY PRN itch 11/10/24 Unknown History (Banophen) epinephrine 0.3 mg/0.3 mL 0.3 ml IM UD 11/10/24 Unknown History injection, auto-injector methocarbamol 500 mg tablet 500 mg PO TID PRN 12/11/24 Unknown History metoprolol tartrate 50 mg tablet 50 mg PO BID #180 tabs 12/11/24 Unknown Rx amoxicillin 875 mg-potassium 1 tab PO BID 7 days #14 tabs 12/20/24 Unknown Rx clavulanate 125 mg tablet Allergy/AdvReac Type Severity Reaction Status Date / Time metoclopramide (From Reglan) Allergy Severe Anaphylaxis Verified 12/20/24 14:10 coconut Allergy Mild NEEDS Verified 12/20/24 14:10 FOLLOW-UP gabapentin Allergy Rash Verified 12/20/24 14:10 glycerin (From Nasal-Ease) Allergy Swelling Verified 12/20/24 14:10 methylcellulose (From Allergy Swelling Verified 12/20/24 14:10 Nasal-Ease) sertraline (From Zoloft) Allergy Anaphylaxis Verified 12/20/24 14:10 silicone Allergy Rash Verified 12/20/24 14:10 sodium chloride (From Allergy Swelling Verified 12/20/24 14:10 Nasal-Ease) zinc (From Nasal-Ease) Allergy Swelling Verified 12/20/24 14:10 lactose AdvReac Upset Verified 12/20/24 14:10 Stomach Family History Father Anxiety Depression Asthma Hypertension Mother Asthma Diabetes Anxiety Depression CAD (coronary artery disease) Myocardial infarction, Onset Age: 42 Brother Oleksandr-Danlos syndrome Grandmother Myocardial infarction, Onset Age: 41 Grandfather Myocardial infarction, Onset Age: 38 Surgical History History of colonoscopy History of esophagogastroduodenoscopy (EGD) Hx of laparoscopy Social History household members: none Smoking Status: Current every day smoker tobacco type: e-cigarettes Electronic Cigarette Use: with nicotine alcohol intake: current alcohol intake frequency: a few times a month substance use type: marijuana caffeine: Yes Type: carbonated beverages, coffee and tea EXAM Physical Exam Narrative Exam Narrative: Vital signs: Reviewed General: Alert and orientedx3. No acute distress HEENT: Head is normocephalic and atraumatic, sinuses nontender, pupils equal round and reactive. Nares are patent. Patent airway. Posterior oropharynx erythema. Mild tonsillar hypertrophy, worse on the right than the left. No exudates. Uvula midline. No palatal rash. Tongue midline, no signs of Ludwigs. Neck: Supple with tender cervical lymphadenopathy on the left. Trachea midline. No nuchal rigidity. Normal active ROM. Cardiovascular: Regular rate and rhythm, no murmurs. No rubs or gallops. Normal S1 and S2 Respiratory: Clear to auscultation bilaterally. No wheezes, rales, rhonchi Abdominal: Soft and nontender. Normal bowel sounds. No guarding or rebound. Nonsurgical abdomen Extremities: No tenderness. No bruising. Normal range of motion. Normal sensation. Skin: No rash or redness. Neurological: Cranial nerves II through XII are grossly intact. Normal strength and sensation. Normal cerebellar function The rest of the physical exam is unremarkable Const Vital Signs: 12/20/24 14:10 12/20/24 16:10 12/20/24 17:47 Temperature 98.8 F 98.8 F Temperature Source Temporal Pulse Rate 65 63 69 Respiratory Rate 16 14 Blood Pressure 131/92 H 131/92 H Blood Pressure Mean 105 105 Pulse Ox 99 100 100 Oxygen Delivery Method Room Air Room Air MDM MDM MDM Narrative Medical decision making narrative: Patient is a 24-year-old female presenting to the emergency department for sore throat. Patient was seen and examined. Vitals are stable. Patient resting bed comfortably no acute distress. Differential includes but is not limited to: Pharyngitis, strep, peritonsillar abscess, less likely retropharyngeal abscess, meningitis Patient given Toradol and steroids. She did develop some reported skin itching after the medications, Benadryl was given. She states that she has had Cdiff in the past from antibiotics. Will obtain CT imaging to rule out [employer] to determine need to abx. Viral swab and strep swab are negative. CT shows slight enlargement of the adenoids and tonsils with a suspected 5 mm x 3 mm anterior left developing tonsillar abscess. Discussed the findings with the patient. She was given her single dose of Decadron here. Given the size I do not think it is appropriate to attempt to drain. She will be started on antibiotics, Augmentin sent to her pharmacy. Instructed to return with any worsening symptoms or difficulty breathing or swallowing. Patient agreeable with the plan. Patient discharged from the Emergency Department. I do not feel that the patient's evaluation reveals any acute reason for admission at this time. I instructed them to either follow-up with their primary care physician or promptly return to the Emergency Department for reevaluation should symptoms worsen or new symptoms develop. I explained what symptoms would indicate the need to return to the emergency department. Shared decision making was used. The patient voiced understanding of the treatment plan and is agreeable with it. Clinical impression [employer] History & Record Review Discussion w/independent historian: Patient Lab Data Attestation: I reviewed the patient's lab results. Labs: Laboratory Results - last 24 hr 12/20/24 14:51 Serum , Qual NEGATIVE Radiography Diagnostic Testing: Clinical Impression(s) from Imaging Studies Soft Tissue Neck CT 12/20/24 14:37 IMPRESSION: Slight enlargement of the adenoids and tonsils with a suspected 5 mm x 3 mm anterior left developing tonsillar abscess. - Borderline left cervical lymphadenopathy likely reactive nodes. Clinical follow-up is advised. - Mild dental decay [id number]. Clinical follow-up is advised. - Other findings discussed above in detail. Reading Location: [facility] Discharge Plan Triage Chief Complaint: Sore Throat ED Provider: Clara Dietz Dx/Rx/DC Orders Clinical Impression: Abscess, peritonsillar Instructions: ED Peritonsillar Abscess Prescriptions: New amoxicillin-pot clavulanate 875-125 mg tablet 1 tab PO BID 7 Days Qty: 14 0RF No Action medroxyprogesterone [Depo-Provera] 150 mg/mL suspension 150 mg IM .q10w Patient Comments: INJECT 1ML INTRAMUSCULARILY EVERY 12 WEEKS topiramate 100 mg tablet 100 mg PO QDAY Rx Instructions: Take with 25 mg to = 125 mg daily lamotrigine 50 mg tablet,disintegrating 50 mg PO BID budesonide-formoterol [Symbicort] 80-4.5 mcg/actuation HFA aerosol inhaler 2 puff inhalation BID etodolac 400 mg tablet 400 mg PO BID PRN aripiprazole 10 mg tablet 10 mg PO QDAY Qty: 90 1RF bupropion HCl [Wellbutrin XL] 150 mg tablet extended release 24 hr 150 mg PO QAM Qty: 30 1RF trazodone 100 mg tablet 100 - 200 mg PO QHS Qty: 180 1RF methocarbamol 500 mg tablet 500 mg PO TID PRN metoprolol tartrate 50 mg tablet 50 mg PO BID Qty: 180 3RF albuterol sulfate 90 mcg/actuation HFA aerosol inhaler 2 puff INHALATION PRN PRN (Reason: Wheezing) Patient Comments: inhale 2 puffs by mouth and INTO THE LUNGS every 4 hours if neede... (REFER TO PRESCRIPTION NOTES). prazosin 1 mg capsule 1 mg PO BID diphenhydramine HCl [Banophen] 25 mg capsule 25 - 50 mg PO DAILY PRN (Reason: itch) epinephrine 0.3 mg/0.3 mL auto-injector 0.3 ml IM UD Primary Care Provider: Dian Baez NP Referrals: Dian Baez NP, [employer] OFF[employer]ER-C [Primary Care Provider] - 2 Days Activity Restrictions/Additional Instructions: Take the antibiotic as prescribed. Return to the ED with any difficulty swallowing, breathing, worsening sore throat. Your evaluation in the Emergency Department did not reveal any acute reason for admission. However, I want to emphasize that you may be early in the course of a disease process or illness even if it is not present. For this reason you should follow-up within 24 hours for reevaluation with either your primary care physician or if necessary back here in the Emergency Department. You should return to the Emergency Department immediately if your symptoms worsen or new symptoms develop. Print Language: Lao Disposition Disposition: Home, Self Care Discharge Date/Time: 12/20/24 17:50
[2024-12-20 15:33] LABS: Internal QC Validated? YES +Cl - CLEAR BKGD; Pregnancy, Serum, hCG Quali. NEGATIVE Negative; Record Kit Lot#, Serum Preg. 947241
[2024-12-20 16:10] VITALS: PULSE 63; O2SAT 100
[2024-12-20] MEDS: DiphenhydrAMINE 50 MG/ML Syringe 25 MG IV (16:33)
[2024-12-20 17:47] VITALS: BP 131/92; PULSE 69; RESP 14; TEMP 37.1; O2SAT 100
== END 2024-12-20 17:50 | disposition home or self-care (01) ==
PROVIDERS: Emergency Provider Student in an Organized Health Care Education/Training Program; PCP Nurse Practitioner Family; Visit Provider Student in an Organized Health Care Education/Training Program
DX: J36 Peritonsillar abscess (principal); F17.290 Nicotine dependence, other tobacco product, uncomplicated; K21.9 Gastro-esophageal reflux disease without esophagitis; J45.909 Unspecified asthma, uncomplicated
CPT/HCPCS: 70491; 84703; 87631; 87651; 96374; 96375; 99282; Q9967; A4216

== ENCOUNTER 2025-01-16 11:45 | Emergency (ER) | payer MEDICAID, SELFPAY ==
[2025-01-16 11:45] VITALS: BP 158/60; PULSE 65; RESP 16; TEMP 36.8; O2SAT 100; BMI 27.5
--- NOTE | 2025-01-16 11:59 | CT_ITS ---
PROCEDURE: BRAIN/HEAD WITHOUT CONTRAST 01/16/2025 REASON FOR EXAM: HEADACHE TECHNIQUE: Procedure Code: CTBR Modality: CT Procedure: BRAIN/HEAD WITHOUT CONTRAST Coronal and Sagittal reconstruction series were provided. One or more dose reduction techniques were used (e.g., Automated exposure control, adjustment of the mA and/or kV according to patient size, use of iterative reconstruction technique. RADIATION DOSE SUMMARY: DLP: 748 mGycm COMPARISON: Previous exam dated 08/09/2023 FINDINGS: Cerebral parenchyma: Attenuation of the brain parenchyma is normal without evidence for mass, hemorrhage, or midline shift.. Extra-axial spaces: There is no extra-axial collection. Ventricles: The size and configuration of the ventricles and sulci is normal for age. Posterior Fossa: The fourth ventricle is in the midline. The posterior fossa structures including the cerebellum, pauline, medulla and cervicomedullary junction are unremarkable. Calvarium: Unremarkable. No fracture seen. Visualized paranasal sinuses/mastoids: The visualized paranasal sinuses and mastoid air cells are clear. CT/Brain/Head without Contrast IMPRESSION: No acute intracranial abnormality. Reading Location: [facility]
[2025-01-16] MEDS: 0.9% Normal Saline (1000mL) 1,000 ML 1000 ML IV (12:07)
[2025-01-16] MEDS: DiphenhydrAMINE 50 MG/ML Syringe 25 MG IV (12:08)
--- NOTE | 2025-01-16 12:12 | ED.RN ---
Per Dr Roque- apply nonrebreather for 15-20 minutes for occular headache. Applied nonrebreather for 20 minutes and Pt stating that she is now feeling better.
--- NOTE | 2025-01-16 12:42 | EX.ED.DYSGE1 ---
HPI History of Present Illness Chief Complaint: Headache Narrative Narrative: Chief complaint and HPI: 24-year-old female with past medical history of bipolar disorder, PTSD, anxiety, migraines presents for evaluation of headache. Associated symptoms is nausea and blurry vision mostly out of the right eye. Patient states she has not had a migraine in years. She states she used to get blurry vision and nausea with her migraines. She states this headache developed approximately 3 days ago and has been gradual in onset. She states it radiates behind her right eye. She denies any injury to the eye or redness. She denies any trauma or injury. Denies any fever, chills, neck pain, weakness, numbness or tingling. Review of systems: See HPI Medications: As listed on the chart Allergies: As listed on the chart PFSH: Per chart Vital signs: As listed on the chart. Reviewed. Physical exam: Gen: A&O x3, NAD Head: Normocephalic, atraumatic Eye: No periorbital swelling or ecchymosis, no proptosis, no pain with extra ocular movements, EOMI intact, PERRL, no lacerations, no sclera chemosis or injection, no foreign body, no enophthalmos, bilateral optic disks are well-defined, no retinal hemorrhages, macula visualized ENT: TMs clear BL, moist mucous membranes, posterior oropharynx unremarkable, uvula midline, no facial tenderness or swelling Neck: Trachea midline, Full ROM, No meningismus CV: RRR, no murmurs Resp: Lungs CTA BL, no w/r/c Musc: Full ROM, no deformity Skin: Warm, dry, no rash Neuro: Alert, oriented, grossly intact, sensation intact Psych: Cooperative, appropriate mood and affect [facility] Medical History Tachycardia Goiter COVID-19 Smoker Gastroparesis Schizophrenia OCD (obsessive compulsive disorder) POTS (postural orthostatic tachycardia syndrome) Diarrhea PTSD (post-traumatic stress disorder) Upper abdominal pain GERD (gastroesophageal reflux disease) Endometriosis Pelvic pain Migraine Depression Asthma Anxiety Home Medications ?Medication ?Instructions ?Recorded ?Last Taken ?Type albuterol sulfate 90 mcg/actuation 2 puff inhalation PRN PRN Wheezing 06/14/21 Unknown History aerosol inhaler medroxyprogesterone 150 mg/mL 150 mg IM .q10w 01/04/22 Unknown History intramuscular suspension (Depo-Provera) budesonide-formoterol HFA 80 2 puff inhalation BID 05/19/24 Unknown History mcg-4.5 mcg/actuation aerosol inhaler (Symbicort) lamotrigine 50 mg disintegrating 50 mg PO BID 05/19/24 Unknown History tablet prazosin 1 mg capsule 1 mg PO BID PTSD 05/19/24 Unknown History topiramate 100 mg tablet 100 mg PO QDAY 05/19/24 Unknown History aripiprazole 10 mg tablet 10 mg PO QDAY #90 tabs 09/30/24 Unknown Rx etodolac 400 mg tablet 400 mg PO BID PRN 09/30/24 Unknown History bupropion HCl 150 mg 24 hr tablet, 150 mg PO QAM #30 tabs 10/28/24 Unknown Rx extended release (Wellbutrin XL) trazodone 100 mg tablet 100 - 200 mg (1 - 2 x 100 mg) PO 10/28/24 Unknown Rx QHS #180 tabs diphenhydramine HCl 25 mg capsule 25 - 50 mg PO DAILY PRN itch 11/10/24 Unknown History (Banophen) epinephrine 0.3 mg/0.3 mL 0.3 ml IM UD 11/10/24 Unknown History injection, auto-injector methocarbamol 500 mg tablet 500 mg PO TID PRN 12/11/24 Unknown History metoprolol tartrate 50 mg tablet 50 mg PO BID #180 tabs 12/11/24 Unknown Rx amoxicillin 875 mg-potassium 1 tab PO BID 7 days #14 tabs 12/20/24 Unknown Rx clavulanate 125 mg tablet Allergy/AdvReac Type Severity Reaction Status Date / Time metoclopramide (From Reglan) Allergy Severe Anaphylaxis Verified 01/16/25 11:45 coconut Allergy Mild NEEDS Verified 01/16/25 11:45 FOLLOW-UP gabapentin Allergy Rash Verified 01/16/25 11:45 glycerin (From Nasal-Ease) Allergy Swelling Verified 01/16/25 11:45 methylcellulose (From Allergy Swelling Verified 01/16/25 11:45 Nasal-Ease) sertraline (From Zoloft) Allergy Anaphylaxis Verified 01/16/25 11:45 silicone Allergy Rash Verified 01/16/25 11:45 sodium chloride (From Allergy Swelling Verified 01/16/25 11:45 Nasal-Ease) zinc (From Nasal-Ease) Allergy Swelling Verified 01/16/25 11:45 lactose AdvReac Upset Verified 01/16/25 11:45 Stomach Family History Father Anxiety Depression Asthma Hypertension Mother Asthma Diabetes Anxiety Depression CAD (coronary artery disease) Myocardial infarction, Onset Age: 42 Brother Oleksandr-Danlos syndrome Grandmother Myocardial infarction, Onset Age: 41 Grandfather Myocardial infarction, Onset Age: 38 Surgical History History of colonoscopy History of esophagogastroduodenoscopy (EGD) Hx of laparoscopy Social History household members: none Smoking Status: Current every day smoker tobacco type: e-cigarettes Electronic Cigarette Use: with nicotine alcohol intake: current alcohol intake frequency: a few times a month substance use type: marijuana caffeine: Yes Type: carbonated beverages, coffee and tea EXAM Physical Exam Const Vital Signs: 01/16/25 11:45 01/16/25 13:45 Temperature 98.2 F Temperature Source Oral Pulse Rate 65 59 L Respiratory Rate 16 16 Blood Pressure 158/60 H 115/74 Blood Pressure Mean 92 87 Pulse Ox 100 100 Oxygen Delivery Method Room Air Room Air MDM MDM MDM Narrative Medical decision making narrative: 24-year-old female with past medical history of bipolar disorder, PTSD, anxiety, migraines presents for evaluation of headache. Associated symptoms is nausea and blurry vision mostly out of the right eye. Patient states she has not had a migraine in years. She states she used to get blurry vision and nausea with her migraines. She states this headache developed approximately 3 days ago and has been gradual in onset. She states it radiates behind her right eye. Denies acute onset of headache reaching maximal intensity in under one hour. This is neither the worst headache that they have ever experienced, nor was the onset timed with exertional activity or trauma. Patient has not experienced any fever, unusual neck pain or stiffness, syncope, or near syncope. They deny numbness, tingling, or weakness of the extremities. Physical exam unremarkable. Differential diagnosis includes but is not limited to migraine, ocular migraine, cluster migraine. Suspect less likely intracranial abnormality. Given patient states she has not had a migraine in years we will get CT of the head. Will place patient on high flow oxygen in case this is an ocular/cluster migraine. NS bolus, Benadryl, Zofran, morphine ordered for symptoms. After starting oxygen, patient already states that her headache is improving. States she no longer has pain behind the eye. CT of the head was personally viewed interpreted by me, ED physician. No intracranial bleed or mass. On reevaluation, patient states her headache improved however is reoccurred. Toradol and Imitrex ordered. On reevaluation, patient states her headache has significantly improved. States it is almost resolved. Patient symptoms likely secondary to migraine. Follow-up with primary care physician. She confirmed understand the plan. Patient stable to discharge home. Impression: 1. Migraine 2. History of migraines Radiography Diagnostic Testing: Clinical Impression(s) from Imaging Studies Brain CT 01/16/25 11:59 IMPRESSION: No acute intracranial abnormality. Reading Location: [facility] Discharge Plan Triage Chief Complaint: Headache ED Provider: Kobi Victor Dx/Rx/DC Orders Prescriptions: No Action medroxyprogesterone [Depo-Provera] 150 mg/mL suspension 150 mg IM .q10w Patient Comments: INJECT 1ML INTRAMUSCULARILY EVERY 12 WEEKS topiramate 100 mg tablet 100 mg PO QDAY Rx Instructions: Take with 25 mg to = 125 mg daily lamotrigine 50 mg tablet,disintegrating 50 mg PO BID budesonide-formoterol [Symbicort] 80-4.5 mcg/actuation HFA aerosol inhaler 2 puff inhalation BID etodolac 400 mg tablet 400 mg PO BID PRN aripiprazole 10 mg tablet 10 mg PO QDAY Qty: 90 1RF bupropion HCl [Wellbutrin XL] 150 mg tablet extended release 24 hr 150 mg PO QAM Qty: 30 1RF trazodone 100 mg tablet 100 - 200 mg PO QHS Qty: 180 1RF methocarbamol 500 mg tablet 500 mg PO TID PRN metoprolol tartrate 50 mg tablet 50 mg PO BID Qty: 180 3RF albuterol sulfate 90 mcg/actuation HFA aerosol inhaler 2 puff INHALATION PRN PRN (Reason: Wheezing) Patient Comments: inhale 2 puffs by mouth and INTO THE LUNGS every 4 hours if neede... (REFER TO PRESCRIPTION NOTES). prazosin 1 mg capsule 1 mg PO BID diphenhydramine HCl [Banophen] 25 mg capsule 25 - 50 mg PO DAILY PRN (Reason: itch) epinephrine 0.3 mg/0.3 mL auto-injector 0.3 ml IM UD amoxicillin-pot clavulanate 875-125 mg tablet 1 tab PO BID 7 Days Qty: 14 0RF Primary Care Provider: Dian Baez NP Referrals: Dian Baez NP, [employer] HELPER-[facility] [Primary Care Provider, Medical] Print Language: Yakut
[2025-01-16 13:45] VITALS: BP 115/74; PULSE 59; RESP 16; O2SAT 100
[2025-01-16 14:14] VITALS: BP 116/74; PULSE 51; RESP 16; TEMP 36.8; O2SAT 97
== END 2025-01-16 14:19 | disposition home or self-care (01) ==
PROVIDERS: Emergency Provider Surgery; PCP Nurse Practitioner Family; Visit Provider Surgery
DX: G43.909 Migraine, unspecified, not intractable, without status migrainosus (principal); F20.9 Schizophrenia, unspecified; F31.9 Bipolar disorder, unspecified; F41.9 Anxiety disorder, unspecified; F17.210 Nicotine dependence, cigarettes, uncomplicated; Z86.16 Personal history of COVID-19; J45.909 Unspecified asthma, uncomplicated; F17.290 Nicotine dependence, other tobacco product, uncomplicated; F12.90 Cannabis use, unspecified, uncomplicated
CPT/HCPCS: 70450; 96361; 96372; 96374; 96375; 99284; A4216; J2405; J3030

== ENCOUNTER 2025-04-07 06:16 | Emergency (ER) | payer MEDICAID, SELFPAY ==
[2025-04-07 06:17] VITALS: BP 132/85; PULSE 89; RESP 18; TEMP 36.6; O2SAT 100; BMI 25.6
[2025-04-07 07:08] LABS: Hematocrit 37.3 % (37-47); Hemoglobin 12.2 g/dL (12.0-15.0); Immature Granulocytes Count 0.090 X10^3/uL (0.0-0.0); Mean Corp Hgb Conc 32.7 g/dL (32-36); Mean Corpuscular Volume 76.9 fL (81-99); Mean Platelet Vol. 9.5 fl (6.2-12.0); NRBC Flagged by Analyzer 0 % (0-5); Platelet Count 383 K/mm3 (150-450); RBC Distribution Width CV 13.9 % (11.6-14.6); RBC Distribution Width SD 38.9 fl (35.1-43.9); Red Blood Count 4.85 M/mm3 (4.2-5.4); White Blood Count 13.9 K/mm3 (4.4-11.0)
[2025-04-07] MEDS: Lactated Ringers 1,000 ML 999 ML IV (07:09)
[2025-04-07 07:13] LABS: Prothrombin Time (Protime)PT. 15.3 SECONDS (11.7-14.9)
[2025-04-07 07:14] LABS: Partial Thromboplast Time 31.6 Seconds (24.1-36.2)
[2025-04-07 07:16] LABS: Internal QC Validated? YES +Cl - CLEAR BKGD; Pregnancy, Serum, hCG Quali. NEGATIVE Negative
[2025-04-07 07:24] LABS: Anion Gap 12 (7-18); BUN 8 mg/dL (4-19); BUN/Creat Ratio 10.7 RATIO (10-20); Calcium,Total 9.0 mg/dL (7.6-11.0); Carbon Dioxide 18.5 mmol/L (20.0-29.0); Chloride 106 mmol/L (96-106); Estimated Creatinine Clearance 112.44 ml/min (50-250); Glucose 103 mg/dL (70-99); Potassium 4.0 mmol/L (3.5-5.1)
--- NOTE | 2025-04-07 07:44 | EX.ED.DYSGE1 ---
HPI History of Present Illness Chief Complaint: Mental Health Informant: patient Narrative Narrative: Patient is 25-year-old female with past medical history of anxiety and bipolar disorder. She presents for multiple reasons. She initially told the nursing staff that she did cocaine 1 or 2 days ago and since that time has been manic and has not been sleeping which concerned her and therefore she felt she need to be evaluated in the hospital. When I evaluated the patient she states that she is not concerned about mental health and does not feel that she is manic or requires any type of psychiatric hospitalization. She denies homicidal or suicidal ideation. She reports her main concern is that she has been having bouts of vomiting and she is concerned she may be dehydrated and she also has a sore throat and has concern for strep throat and also has noted some bruising to her legs and she is not sure why that has occurred as she states there is been no trauma and needs to the reason she presents to the ER [facility] Medical History (Updated 04/07/25 @ 08:[address] Bryant Reyes, DO) Tachycardia Goiter COVID-19 Smoker Gastroparesis Schizophrenia OCD (obsessive compulsive disorder) POTS (postural orthostatic tachycardia syndrome) Diarrhea PTSD (post-traumatic stress disorder) Upper abdominal pain GERD (gastroesophageal reflux disease) Endometriosis Pelvic pain Migraine Depression Asthma Anxiety Home Medications ?Medication ?Instructions ?Recorded ?Last Taken ?Type albuterol sulfate 90 mcg/actuation 2 puff inhalation PRN PRN Wheezing 06/14/21 Unknown History aerosol inhaler medroxyprogesterone 150 mg/mL 150 mg IM .q10w 01/04/22 Unknown History intramuscular suspension (Depo-Provera) budesonide-formoterol HFA 80 2 puff inhalation BID 05/19/24 Unknown History mcg-4.5 mcg/actuation aerosol inhaler (Symbicort) lamotrigine 50 mg disintegrating 50 mg PO BID 05/19/24 Unknown History tablet prazosin 1 mg capsule 1 mg PO BID PTSD 05/19/24 Unknown History topiramate 100 mg tablet 100 mg PO QDAY 05/19/24 Unknown History aripiprazole 10 mg tablet 10 mg PO QDAY #90 tabs 09/30/24 Unknown Rx etodolac 400 mg tablet 400 mg PO BID PRN 09/30/24 Unknown History bupropion HCl 150 mg 24 hr tablet, 150 mg PO QAM #30 tabs 10/28/24 Unknown Rx extended release (Wellbutrin XL) trazodone 100 mg tablet 100 - 200 mg (1 - 2 x 100 mg) PO 10/28/24 Unknown Rx QHS #180 tabs diphenhydramine HCl 25 mg capsule 25 - 50 mg PO DAILY PRN itch 11/10/24 Unknown History (Banophen) epinephrine 0.3 mg/0.3 mL 0.3 ml IM UD 11/10/24 Unknown History injection, auto-injector methocarbamol 500 mg tablet 500 mg PO TID PRN 12/11/24 Unknown History metoprolol tartrate 50 mg tablet 50 mg PO BID #180 tabs 12/11/24 Unknown Rx amoxicillin 875 mg-potassium 1 tab PO BID 7 days #14 tabs 12/20/24 Unknown Rx clavulanate 125 mg tablet Allergy/AdvReac Type Severity Reaction Status Date / Time metoclopramide (From Reglan) Allergy Severe Anaphylaxis Verified 04/07/25 06:18 coconut Allergy Mild NEEDS Verified 04/07/25 06:18 FOLLOW-UP gabapentin Allergy Rash Verified 04/07/25 06:18 glycerin (From Nasal-Ease) Allergy Swelling Verified 04/07/25 06:18 methylcellulose (From Allergy Swelling Verified 04/07/25 06:18 Nasal-Ease) sertraline (From Zoloft) Allergy Anaphylaxis Verified 04/07/25 06:18 silicone Allergy Rash Verified 04/07/25 06:18 sodium chloride (From Allergy Swelling Verified 04/07/25 06:18 Nasal-Ease) zinc (From Nasal-Ease) Allergy Swelling Verified 04/07/25 06:18 lactose AdvReac Upset Verified 04/07/25 06:18 Stomach Family History Father Anxiety Depression Asthma Hypertension Mother Asthma Diabetes Anxiety Depression CAD (coronary artery disease) Myocardial infarction, Onset Age: 42 Brother Oleksandr-Danlos syndrome Grandmother Myocardial infarction, Onset Age: 41 Grandfather Myocardial infarction, Onset Age: 38 Surgical History History of colonoscopy History of esophagogastroduodenoscopy (EGD) Hx of laparoscopy Social History household members: none Smoking Status: Current every day smoker tobacco type: e-cigarettes Electronic Cigarette Use: with nicotine alcohol intake: current alcohol intake frequency: a few times a month substance use type: marijuana caffeine: Yes Type: carbonated beverages, coffee and tea ROS ROS ED Constitutional Constitutional ED: Denies chills or fever(s) Eyes Eyes: Denies change in vision ENT ENT ED: Reports sore throat Cardiovascular Cardiovascular: Denies chest pain Respiratory/Chest Respiratory/Chest: Denies cough or dyspnea Gastrointestinal Gastrointestinal: Reports nausea and vomiting; Denies abdominal pain or diarrhea Genitourinary Genitourinary ED: Denies dysuria Musculoskeletal Musculoskeletal: Denies myalgias Integumentary Reports other Details: Positive ecchymosis ; Denies rash Neurologic Neurologic: Denies headache(s) Psychiatric Psychiatric: Denies suicidal ideation or suicidal thoughts Hematologic/Lymphatic Hematologic/Lymphatic: Denies easy bleeding or easy bruising EXAM Physical Exam Const Vital Signs: 04/07/25 06:17 Temperature 97.8 F Temperature Source Temporal Pulse Rate 89 Respiratory Rate 18 Blood Pressure 132/85 H Blood Pressure Mean 100 Pulse Ox 100 Oxygen Delivery Method Room Air Positive well nourished and well developed General Appearance ED: well developed HEENT HEENT Narrative: Normocephalic atraumatic No tongue or lip swelling no oral lesions no airway edema or compromise There is mild erythema in the posterior pharynx; +1 tonsillar upper atrophy bilateral. No exudates trismus change in voice or difficulty with secretions Eyes PERRL and EOMs intact bilaterally General Eye ED: Negative for scleral icterus Neck supple Neck Narrative: No nuchal rigidity or meningeal signs No brawny edema in the submental space to suggest Jesse's angina Resp normal respiratory effort and clear to auscultation bilaterally Cardio regular rate and regular rhythm GI normal to inspection, nondistended, normoactive bowel sounds, non-tender, non-distended and no masses GI Narrative: No voluntary guarding or rigidity or pulsatile mass Auscultation: normoactive bowel sounds Palpation: soft Extremity normal to inspection Extremity Narrative: There is faint ecchymosis to the anterior aspect of the bilateral shins No sign of long bone injury such as bony deformity or joint effusion All compartments are soft and compressible going against compartment syndrome Neuro oriented x3, CN's II-XII intact bilaterally and no sensory deficits noted Sensorium / Orientation: alert Motor Exam: strength 5/5 throughout Psych Psych Narrative: Patient has a flat affect but denies homicidal or suicidal ideation Skin Skin Narrative: Ecchymosis to the anterior aspect of the bilateral shins No surrounding soft tissue changes to suggest infection No purpura or areas of hemorrhages noted MDM MDM MDM Narrative Medical decision making narrative: Patient presented with stable vitals. She told nursing staff 1 reason for admission and me a completely different reason. I discussed with patient that if she truly felt that she was manic and would require or benefit from placement in a second hospitalization that we can go down this route and have psychiatry evaluate her today. She was adamant that she was not concerned about this and was mainly concerned about dehydration the cause of her bruising as well as potential infection. Therefore strep swab was obtained to assess for strep pharyngitis. She did not have signs of peritonsillar abscess or epiglottitis so I felt no need for a CT of the neck. Rapid strep was negative which correlates with her exam. Workup revealed no signs of acute blood loss anemia or derangement to her platelets/thrombocytopenia or bleeding times going against any reason for spontaneous ecchymosis. Even though she reported bouts of nausea and vomiting kidney function electrolytes are also within normal range. After receiving IV hydration the patient reported feeling better and had no bouts of emesis while in the ER. Again she was offered potential evaluation by psychiatry but states that that is not the reason why she came to the ER and as her workup is negative and vital stable she is otherwise safe for discharge History & Record Review Discussion w/independent historian: Patient Lab Data Attestation: I reviewed the patient's lab results. Labs: Laboratory Results - last 24 hr 04/07/25 06:56 WBC 13.9 H RBC 4.85 Hgb 12.2 Hct 37.3 MCV 76.9 L MCH 25.2 L MCHC 32.7 RDW Std Deviation 38.9 RDW Coeff of Anoop 13.9 Plt Count 383 MPV 9.5 Immature Gran % (Auto) 0.600 Neut % (Auto) 90.2 H Lymph % (Auto) 5.0 L [place] % (Auto) 4.1 Eos % (Auto) 0.0 Baso % (Auto) 0.1 Absolute Neuts (auto) 12.5 H Absolute Lymphs (auto) 0.70 L Nucleated RBC % 0 PT 15.3 H INR 1.2 APTT 31.6 Sodium 137 Potassium 4.0 Chloride 106 Carbon Dioxide 18.5 L Anion Gap 12 BUN 8 Creatinine 0.73 Estim Creat Clear Calc 112.44 Est GFR (MDRD) Non-Af 118 BUN/Creatinine Ratio 10.7 Glucose 103 H Calcium 9.0 Serum , Qual NEGATIVE Discharge Plan Triage Chief Complaint: Mental Health ED Provider: Bryant Reyes Dx/Rx/DC Orders Clinical Impression: Pharyngitis, Ecchymosis, Bipolar 1 disorder, GABRIEL (generalized anxiety disorder) Instructions: ED Pharyngitis, Viral Prescriptions: No Action medroxyprogesterone [Depo-Provera] 150 mg/mL suspension 150 mg IM .q10w Patient Comments: INJECT 1ML INTRAMUSCULARILY EVERY 12 WEEKS topiramate 100 mg tablet 100 mg PO QDAY Rx Instructions: Take with 25 mg to = 125 mg daily lamotrigine 50 mg tablet,disintegrating 50 mg PO BID budesonide-formoterol [Symbicort] 80-4.5 mcg/actuation HFA aerosol inhaler 2 puff inhalation BID etodolac 400 mg tablet 400 mg PO BID PRN aripiprazole 10 mg tablet 10 mg PO QDAY Qty: 90 1RF bupropion HCl [Wellbutrin XL] 150 mg tablet extended release 24 hr 150 mg PO QAM Qty: 30 1RF trazodone 100 mg tablet 100 - 200 mg PO QHS Qty: 180 1RF methocarbamol 500 mg tablet 500 mg PO TID PRN metoprolol tartrate 50 mg tablet 50 mg PO BID Qty: 180 3RF albuterol sulfate 90 mcg/actuation HFA aerosol inhaler 2 puff INHALATION PRN PRN (Reason: Wheezing) Patient Comments: inhale 2 puffs by mouth and INTO THE LUNGS every 4 hours if neede... (REFER TO PRESCRIPTION NOTES). prazosin 1 mg capsule 1 mg PO BID diphenhydramine HCl [Banophen] 25 mg capsule 25 - 50 mg PO DAILY PRN (Reason: itch) epinephrine 0.3 mg/0.3 mL auto-injector 0.3 ml IM UD amoxicillin-pot clavulanate 875-125 mg tablet 1 tab PO BID 7 Days Qty: 14 0RF Primary Care Provider: Dian Baez NP Referrals: Dian Baez NP, [facility] [Primary Care Provider, Medical] Activity Restrictions/Additional Instructions: Your strep test was negative today. Your blood volume and bleeding times are also normal indicating no significant cause of your bruising. Follow-up with your family doctor for repeat evaluation and return to the ER should you have any further concerns Print Language: Swedish Disposition Disposition: Home, Self Care
[2025-04-07 08:31] VITALS: BP 148/72; PULSE 92; RESP 18; TEMP 36.6; O2SAT 98
== END 2025-04-07 08:34 | disposition home or self-care (01) ==
PROVIDERS: Emergency Provider Emergency Medicine; PCP Nurse Practitioner Family; Visit Provider Emergency Medicine
DX: J02.9 Acute pharyngitis, unspecified (principal); F31.9 Bipolar disorder, unspecified; F41.1 Generalized anxiety disorder; F17.290 Nicotine dependence, other tobacco product, uncomplicated; K21.9 Gastro-esophageal reflux disease without esophagitis; J45.909 Unspecified asthma, uncomplicated; R58 Hemorrhage, not elsewhere classified
CPT/HCPCS: 80048; 84703; 85025; 85610; 85730; 87651; 96360; 99284; A4216

== ENCOUNTER 2025-04-08 01:17 | Emergency (ER) | payer MEDICAID, SELFPAY ==
[2025-04-08] VITALS (17 sets, daily range): BP systolic 106–137; BP diastolic 53–97; PULSE 88–121; RESP 13–128; TEMP 36.4–36.6; O2SAT 98–100; BMI 27.6
--- NOTE | 2025-04-08 01:28 | EX.ED.DYSGE1 ---
HPI History of Present Illness Chief Complaint: Overdose Informant: EMS Limited: stupor Onset/Context/Timing Onset: Today Context: Sudden Onset Timing: Continuous Quality: Somnolent Location: Generalized Worsened by: Nothing Relieved by: Nothing Narrative Narrative: Patient presents with overdose that occurred tonight. EMS reports that the patient took Flexeril, lamotrigine, and aripiprazole. Patient does not answer any of my questions. Patient awakens to verbal stimuli but does not answer any questions. Patient is maintaining her airway. EMS is unsure how many she took and when she took them. EMS states that she got into an argument with her mother peterson. Mother called EMS because she was not acting right after she came back from a walk. [facility] Medical History Tachycardia Goiter COVID-19 Smoker Gastroparesis Schizophrenia OCD (obsessive compulsive disorder) POTS (postural orthostatic tachycardia syndrome) Diarrhea PTSD (post-traumatic stress disorder) Upper abdominal pain GERD (gastroesophageal reflux disease) Endometriosis Pelvic pain Migraine Depression Asthma Anxiety Medical History unable to obtain Home Medications ?Medication ?Instructions ?Recorded ?Last Taken ?Type albuterol sulfate 90 mcg/actuation 2 puff inhalation PRN PRN Wheezing 06/14/21 Unknown History aerosol inhaler medroxyprogesterone 150 mg/mL 150 mg IM .q10w 01/04/22 Unknown History intramuscular suspension (Depo-Provera) budesonide-formoterol HFA 80 2 puff inhalation BID 05/19/24 Unknown History mcg-4.5 mcg/actuation aerosol inhaler (Symbicort) lamotrigine 50 mg disintegrating 50 mg PO BID 05/19/24 Unknown History tablet prazosin 1 mg capsule 1 mg PO BID PTSD 05/19/24 Unknown History topiramate 100 mg tablet 100 mg PO QDAY 05/19/24 Unknown History aripiprazole 10 mg tablet 10 mg PO QDAY #90 tabs 09/30/24 Unknown Rx etodolac 400 mg tablet 400 mg PO BID PRN 09/30/24 Unknown History bupropion HCl 150 mg 24 hr tablet, 150 mg PO QAM #30 tabs 10/28/24 Unknown Rx extended release (Wellbutrin XL) trazodone 100 mg tablet 100 - 200 mg (1 - 2 x 100 mg) PO 10/28/24 Unknown Rx QHS #180 tabs diphenhydramine HCl 25 mg capsule 25 - 50 mg PO DAILY PRN itch 11/10/24 Unknown History (Banophen) epinephrine 0.3 mg/0.3 mL 0.3 ml IM UD 11/10/24 Unknown History injection, auto-injector metoprolol tartrate 50 mg tablet 50 mg PO BID #180 tabs 12/11/24 Unknown Rx cyclobenzaprine 10 mg tablet 10 mg PO TID PRN PRN muscle spas 04/08/25 Unknown History Allergy/AdvReac Type Severity Reaction Status Date / Time metoclopramide (From Reglan) Allergy Severe Anaphylaxis Verified 04/08/25 01:23 coconut Allergy Mild NEEDS Verified 04/08/25 01:23 FOLLOW-UP gabapentin Allergy Rash Verified 04/08/25 01:23 glycerin (From Nasal-Ease) Allergy Swelling Verified 04/08/25 01:23 methylcellulose (From Allergy Swelling Verified 04/08/25 01:23 Nasal-Ease) sertraline (From Zoloft) Allergy Anaphylaxis Verified 04/08/25 01:23 silicone Allergy Rash Verified 04/08/25 01:23 sodium chloride (From Allergy Swelling Verified 04/08/25 01:23 Nasal-Ease) zinc (From Nasal-Ease) Allergy Swelling Verified 04/08/25 01:23 lactose AdvReac Upset Verified 04/08/25 01:23 Stomach Family History Father Anxiety Depression Asthma Hypertension Mother Asthma Diabetes Anxiety Depression CAD (coronary artery disease) Myocardial infarction, Onset Age: 42 Brother Oleksandr-Danlos syndrome Grandmother Myocardial infarction, Onset Age: 41 Grandfather Myocardial infarction, Onset Age: 38 Surgical History History of colonoscopy History of esophagogastroduodenoscopy (EGD) Hx of laparoscopy Surgical History unable to obtain Social History household members: none Smoking Status: Current every day smoker tobacco type: e-cigarettes Electronic Cigarette Use: with nicotine alcohol intake: current alcohol intake frequency: a few times a month substance use type: marijuana caffeine: Yes Type: carbonated beverages, coffee and tea ROS ROS ED Review of Systems ROS Unobtainable: due to mental condition and due to mental status EXAM Physical Exam Const Vital Signs: 04/08/25 01:17 04/08/25 01:22 04/08/25 01:30 Temperature 97.9 F Temperature Source Oral Pulse Rate 121 H 116 H Respiratory Rate 128 H 17 21 H Respiratory Effort Respiratory Pattern Blood Pressure 133/89 H 130/97 H Blood Pressure Mean 103 106 Pulse Ox 98 Oxygen Delivery Method Room Air 04/08/25 01:31 04/08/25 01:45 04/08/25 01:45 Temperature Temperature Source Pulse Rate Respiratory Rate Respiratory Effort Normal Respiratory Pattern Tachypnea Blood Pressure 132/93 H 132/93 H Blood Pressure Mean 105 105 Pulse Ox Oxygen Delivery Method 04/08/25 01:45 04/08/25 02:00 04/08/25 02:15 Temperature Temperature Source Pulse Rate 110 H 104 H 102 H Respiratory Rate 23 H 22 H 17 Respiratory Effort Respiratory Pattern Blood Pressure 132/93 H 135/83 H Blood Pressure Mean 105 97 Pulse Ox 99 Oxygen Delivery Method 04/08/25 02:15 04/08/25 02:30 04/08/25 02:45 Temperature Temperature Source Pulse Rate 102 H 104 H 105 H Respiratory Rate 17 24 H 16 Respiratory Effort Respiratory Pattern Blood Pressure 135/85 H 137/93 H Blood Pressure Mean 96 106 Pulse Ox 99 100 Oxygen Delivery Method 04/08/25 03:00 04/08/25 03:45 04/08/25 04:00 Temperature Temperature Source Pulse Rate 95 106 H 92 Respiratory Rate 17 13 16 Respiratory Effort Respiratory Pattern Blood Pressure 132/75 H 113/83 H 109/60 Blood Pressure Mean 94 94 75 Pulse Ox 100 100 Oxygen Delivery Method 04/08/25 05:00 04/08/25 06:00 04/08/25 07:00 Temperature Temperature Source Pulse Rate 90 88 93 Respiratory Rate 16 18 17 Respiratory Effort Respiratory Pattern Blood Pressure 106/58 L 109/53 L 118/55 L Blood Pressure Mean 72 69 72 Pulse Ox 99 100 99 Oxygen Delivery Method 04/08/25 08:00 Temperature Temperature Source Pulse Rate 90 Respiratory Rate 16 Respiratory Effort Respiratory Pattern Blood Pressure 116/54 L Blood Pressure Mean 74 Pulse Ox 99 Oxygen Delivery Method Positive well nourished and well developed Constitutional Narrative: BMI is 27.6. General Appearance ED: well developed and NAD HEENT Reports moist mucous membranes Neck supple and no JVD Resp normal respiratory effort and clear to auscultation bilaterally Cardio regular rhythm Rate: tachycardic GI non-distended Palpation: soft Neuro CN's II-XII intact bilaterally and no sensory deficits noted Neuro Narrative: Patient is sleeping on exam but does open her eyes to verbal stimuli. Patient is nonverbal. Patient moves all of her extremities. There are no apparent motor or sensory deficits noted. MDM MDM MDM Narrative Medical decision making narrative: Differential diagnosis includes medication overdose, cardiac dysrhythmia, cardiac ischemia, electrolyte abnormality, intracranial bleeding, depression, suicidal ideation, and anxiety. EKG will be obtained to assess for cardiac dysrhythmia and cardiac ischemia. CT scan of the brain will be obtained to assess for intracranial bleeding and stroke. Chest x-ray will be obtained to assess for aspiration. CBC will be obtained to assess for leukocytosis and anemia. Comprehensive metabolic profile will be obtained to assess for electrolyte abnormality, hepatic function, and renal function. High-sensitivity troponin will be obtained to assess for cardiac ischemia. Serum hCG will be obtained to assess for . Lamotrigine level will be obtained to assess for lamotrigine overdose. Serum alcohol level will be obtained to assess for alcohol intoxication. Urine drug screen will be obtained to assess for substance abuse. History & Record Review Discussion w/independent historian: EMS personnel Additional record(s) reviewed:: Prior outpatient record, Prior ED visit and Prior labs Lab Data Attestation: I reviewed the patient's lab results. Lab results narrative: CBC was reviewed. There is a mild leukocytosis of 13.5. The remainder was within normal limits. Serum hCG was reviewed and was negative. Comprehensive metabolic profile was reviewed and was within normal limits. Serum alcohol level was reviewed and was less than 10.1. Urine drug screen was reviewed and was positive for buprenorphine, cocaine, and cannabinoids. Labs: Laboratory Results - last 24 hr 04/08/25 04/08/25 00:10 02:40 WBC 13.5 H RBC 5.24 Hgb 13.1 Hct 40.6 MCV 77.5 L MCH 25.0 L MCHC 32.3 RDW Std Deviation 39.5 RDW Coeff of Anoop 14.1 Plt Count 393 MPV 9.6 Immature Gran % (Auto) 0.200 Neut % (Auto) 82.2 H Lymph % (Auto) 11.1 L [place]auf[place] % (Auto) 5.9 Eos % (Auto) 0.5 Baso % (Auto) 0.1 Absolute Neuts (auto) 11.1 H Absolute Lymphs (auto) 1.49 Nucleated RBC % 0 Sodium 144 Potassium 3.0 L Chloride 106 Carbon Dioxide 21.7 Anion Gap 16 BUN 8 Creatinine 0.82 Estim Creat Clear Calc 103.51 Est GFR (MDRD) Non-Af 102 BUN/Creatinine Ratio 10.2 Glucose 73 Calcium 9.8 Total Bilirubin 0.53 AST 22 ALT 19 Alkaline Phosphatase 101 Total Protein 8.3 Albumin 4.6 Globulin 3.7 Albumin/Globulin Ratio 1.2 Serum , Qual NEGATIVE Urine Opiates Screen NEGATIVE U Buprenorphine Qual PRESUMPTIVE POSITIVE Ur Oxycodone Screen NEGATIVE Urine Methadone Screen NEGATIVE Urine Fentanyl Screen NEGATIVE Ur Barbiturates Screen NEGATIVE Ur Phencyclidine Scrn NEGATIVE Ur Amphetamines Screen NEGATIVE U Benzodiazepines Scrn NEGATIVE Urine Cocaine Screen PRESUMPTIVE POSITIVE U Cannabinoids Screen PRESUMPTIVE POSITIVE Ethyl Alcohol < 10.1 Radiography Chest X-Ray - ED: 1 View, Read by ED Physician, Read by Radiologist and No Acute Disease Diagnostic Testing: Clinical Impression(s) from Imaging Studies Brain CT 04/08/25 01:37 IMPRESSION: No acute intracranial abnormalities Paranasal sinusitis Reading Location: [facility] Chest X-Ray 04/08/25 01:37 IMPRESSION: No Acute Findings. Reading Location: [facility] CT scan of the brain was obtained. There is no acute intracranial abnormality. This was interpreted by the radiologist. I also independently reviewed the images and did not see any evidence of intracranial bleeding or stroke. Portable 1 view chest x-ray was obtained. On my independent interpretation, lung dela cruz are clear. There is normal cardiac silhouette. Bony thorax is normal. There is no acute process noted. Radiologist also interpreted the x-ray and agrees. EKG Initial EKG: Attestation: I personally reviewed and interpreted this EKG as follows: Interpretation: No Acute Injury Pattern and Sinus Tachycardia (101) Comments: EKG was obtained. On my independent interpretation, it showed a sinus tachycardia with a rate of 101. GA interval, QRS interval, and QTc intervals were all normal. [place] was normal. There are no acute ST or T wave changes. Prior EKG tracings: available for review Prior: Unchanged (11/27/2023) Management Discussion w/another healthcare provider: Behavioral health Treatment and Re-Evaluation :: Patient was given IV fluids. Patient was more awake and alert on reevaluation. Patient states that she only took her evening Flexeril tablet. Patient denies taking any other medications. Patient denies any suicidal homicidal ideations. Crisis counselor was in to evaluate the patient. She felt that the patient was stable to be discharged home. Patient was given a safety plan. Patient was instructed to follow-up with her primary care physician 5 to 7 days. Patient was also instructed to follow-up with her psychiatrist in 5 to 7 days. Patient was instructed return if worse in any way. Patient understood and was agreeable with the plan. All questions were answered. Discharge Plan Triage Chief Complaint: Overdose ED Provider: Alexei Chakraborty Dx/Rx/DC Orders Clinical Impression: Bipolar 1 disorder, BP (high blood pressure) Instructions: ED Accidental Ingestion ... Prescriptions: No Action medroxyprogesterone [Depo-Provera] 150 mg/mL suspension 150 mg IM .q10w Patient Comments: INJECT 1ML INTRAMUSCULARILY EVERY 12 WEEKS topiramate 100 mg tablet 100 mg PO QDAY Rx Instructions: Take with 25 mg to = 125 mg daily lamotrigine 50 mg tablet,disintegrating 50 mg PO BID budesonide-formoterol [Symbicort] 80-4.5 mcg/actuation HFA aerosol inhaler 2 puff inhalation BID etodolac 400 mg tablet 400 mg PO BID PRN aripiprazole 10 mg tablet 10 mg PO QDAY Qty: 90 1RF bupropion HCl [Wellbutrin XL] 150 mg tablet extended release 24 hr 150 mg PO QAM Qty: 30 1RF trazodone 100 mg tablet 100 - 200 mg PO QHS Qty: 180 1RF metoprolol tartrate 50 mg tablet 50 mg PO BID Qty: 180 3RF albuterol sulfate 90 mcg/actuation HFA aerosol inhaler 2 puff INHALATION PRN PRN (Reason: Wheezing) Patient Comments: inhale 2 puffs by mouth and INTO THE LUNGS every 4 hours if neede... (REFER TO PRESCRIPTION NOTES). prazosin 1 mg capsule 1 mg PO BID diphenhydramine HCl [Banophen] 25 mg capsule 25 - 50 mg PO DAILY PRN (Reason: itch) epinephrine 0.3 mg/0.3 mL auto-injector 0.3 ml IM UD cyclobenzaprine 10 mg tablet 10 mg PO TID PRN PRN (Reason: muscle spas) Primary Care Provider: Dian Baez NP Referrals: Dian Baez NP, [facility] [Primary Care Provider, Medical] - 5-7 Days Activity Restrictions/Additional Instructions: Follow-up with your psychiatrist in 5 to 7 days. Print Language: Khmer Disposition Disposition: Home, Self Care
--- NOTE | 2025-04-08 01:37 | RAD_ITS ---
PROCEDURE: CHEST 1 VIEW (PORTABLE) 04/08/2025 REASON FOR EXAM: COUGH TECHNIQUE: Frontal view of the chest. COMPARISON: 10/12/2024 FINDINGS: Hardware: EKG leads overlie the chest Heart: The heart size is normal. Lungs: The lungs are clear. Bones: Degenerative changes are identified within the thoracic spine. RAD/Chest 1 View (Portable) IMPRESSION: No Acute Findings. Reading Location: [id number]
--- NOTE | 2025-04-08 01:37 | CT_ITS ---
PROCEDURE: BRAIN/HEAD WITHOUT CONTRAST 04/08/2025 REASON FOR EXAM: ALTERED MENTAL STATUS TECHNIQUE: Procedure Code: CTBR Modality: CT Procedure: BRAIN/HEAD WITHOUT CONTRAST Coronal and Sagittal reconstruction series were provided. One or more dose reduction techniques were used (e.g., Automated exposure control, adjustment of the mA and/or kV according to patient size, use of iterative reconstruction technique. RADIATION DOSE SUMMARY: CTDlvol: 44.99 mGy DLP: 812.98 mGycm COMPARISON: 01/16/2025 FINDINGS: Brain: Normal CSF Spaces: Normal Sinuses/Mastoids: Mucosal thickening in the maxillary and ethmoid sinuses with air-fluid level noted in the right maxillary sinus Bones: No skull fracture or scalp hematoma CT/Brain/Head without Contrast IMPRESSION: No acute intracranial abnormalities Paranasal sinusitis Reading Location: [id number]
--- NOTE | 2025-04-08 01:38 | EKG12_ITS ---
Test Reason : OD Blood Pressure : */* mmHG Vent. Rate : 101 BPM Atrial Rate : 101 BPM P-R Int : 144 ms QRS Dur : 74 ms QT Int : 340 ms P-R-T Axes : 47 28 22 degrees QTcB Int : 440 ms Sinus tachycardia Otherwise normal ECG Confirmed by Timothy Matute ([id number]), newspaper editor managing BRITTA SHI ([id number]) on 04/09/2025 8:30:58 AM Referred By: Confirmed By: Timothy Matute
[2025-04-08] MEDS: 0.9% Normal Saline (1000mL) 1,000 ML 1000 ML IV (01:45)
[2025-04-08 01:49] LABS: Hematocrit 40.6 % (37-47); Hemoglobin 13.1 g/dL (12.0-15.0); Immature Granulocytes Count 0.030 X10^3/uL (0.0-0.0); Mean Corp Hgb Conc 32.3 g/dL (32-36); Mean Corpuscular Volume 77.5 fL (81-99); Mean Platelet Vol. 9.6 fl (6.2-12.0); NRBC Flagged by Analyzer 0 % (0-5); Platelet Count 393 K/mm3 (150-450); RBC Distribution Width CV 14.1 % (11.6-14.6); RBC Distribution Width SD 39.5 fl (35.1-43.9); Red Blood Count 5.24 M/mm3 (4.2-5.4); White Blood Count 13.5 K/mm3 (4.4-11.0)
[2025-04-08 01:58] LABS: Internal QC Validated? YES +Cl - CLEAR BKGD; Pregnancy, Serum, hCG Quali. NEGATIVE Negative
[2025-04-08 02:15] LABS: AST(SGOT) 22 U/L (<=31); Alanine Aminotransfer ALT/SGPT 19 U/L (<=34); Albumin, Serum 4.6 g/dL (3.5-5.0); Alkaline Phosphatase 101 U/L (35-104); Anion Gap 16 (7-18); BUN 8 mg/dL (4-19); BUN/Creat Ratio 10.2 RATIO (10-20); Calcium,Total 9.8 mg/dL (7.6-11.0); Carbon Dioxide 21.7 mmol/L (20.0-29.0); Chloride 106 mmol/L (96-106); Estimated Creatinine Clearance 103.51 ml/min (50-250); Globulin 3.7 g/dL (2.2-4.2); Glucose 73 mg/dL (70-99); Potassium 3.0 mmol/L (3.5-5.1)
[2025-04-08 02:33] LABS: Alcohol, Blood (Medical)-Serum < 10.1 mg/dL (<=10.0)
[2025-04-08 03:54] LABS: Barbiturate Urine NEGATIVE (< 200 ng/mL); Benzodiazepine Urine NEGATIVE (< 200 ng/mL); PCP Urine NEGATIVE (< 25 ng/mL); THC Urine PRESUMPTIVE POSITIVE (< 50 ng/mL)
--- NOTE | 2025-04-08 07:10 | PCA ---
CHENTE CALLED FROM CRISIS AT 710 SHE IS ON HER WAY OUT TO SEE THE PATIENT
== END 2025-04-08 08:31 | disposition home or self-care (01) ==
PROVIDERS: Emergency Provider Emergency Medicine; PCP Nurse Practitioner Family; Visit Provider Emergency Medicine
DX: F31.9 Bipolar disorder, unspecified (principal); I10 Essential (primary) hypertension; Z79.899 Other long term (current) drug therapy; J45.909 Unspecified asthma, uncomplicated; F17.290 Nicotine dependence, other tobacco product, uncomplicated; D72.829 Elevated white blood cell count, unspecified
CPT/HCPCS: 51701; 70450; 71045; 80053; 80307; 82077; 82542; 84703; 85025; 93005; 96360; 96361; 99285; P9612; A4216

== ENCOUNTER 2025-04-09 01:57 | Emergency (ER) | payer MEDICAID, SELFPAY ==
[2025-04-09 01:58] VITALS: BP 147/60; PULSE 118; RESP 22; TEMP 36.8; O2SAT 100; BMI 27.6
[2025-04-09] MEDS: Ketorolac 30 MG/ML Syringe IM (03:52)
[2025-04-09 03:58] VITALS: BP 135/84; PULSE 86; RESP 16; TEMP 36.6; O2SAT 100
--- NOTE | 2025-04-09 03:59 | EX.ED.DYSGE1 ---
HPI History of Present Illness Chief Complaint: Sore Throat Narrative Narrative: Patient was seen and examined after presenting to ED for sore throat states that she had blood around her mouth patient reports last time that she did drugs was 2 days ago stating that it was cocaine but there may have been methamphetamines in it. [facility] Medical History Tachycardia Goiter COVID-19 Smoker Gastroparesis Schizophrenia OCD (obsessive compulsive disorder) POTS (postural orthostatic tachycardia syndrome) Diarrhea PTSD (post-traumatic stress disorder) Upper abdominal pain GERD (gastroesophageal reflux disease) Endometriosis Pelvic pain Migraine Depression Asthma Anxiety Home Medications ?Medication ?Instructions ?Recorded ?Last Taken ?Type albuterol sulfate 90 mcg/actuation 2 puff inhalation PRN PRN Wheezing 06/14/21 Unknown History aerosol inhaler medroxyprogesterone 150 mg/mL 150 mg IM .q10w 01/04/22 Unknown History intramuscular suspension (Depo-Provera) budesonide-formoterol HFA 80 2 puff inhalation BID 05/19/24 Unknown History mcg-4.5 mcg/actuation aerosol inhaler (Symbicort) lamotrigine 50 mg disintegrating 50 mg PO BID 05/19/24 Unknown History tablet prazosin 1 mg capsule 1 mg PO BID PTSD 05/19/24 Unknown History topiramate 100 mg tablet 100 mg PO QDAY 05/19/24 Unknown History aripiprazole 10 mg tablet 10 mg PO QDAY #90 tabs 09/30/24 Unknown Rx etodolac 400 mg tablet 400 mg PO BID PRN 09/30/24 Unknown History bupropion HCl 150 mg 24 hr tablet, 150 mg PO QAM #30 tabs 10/28/24 Unknown Rx extended release (Wellbutrin XL) trazodone 100 mg tablet 100 - 200 mg (1 - 2 x 100 mg) PO 10/28/24 Unknown Rx QHS #180 tabs diphenhydramine HCl 25 mg capsule 25 - 50 mg PO DAILY PRN itch 11/10/24 Unknown History (Banophen) epinephrine 0.3 mg/0.3 mL 0.3 ml IM UD 11/10/24 Unknown History injection, auto-injector metoprolol tartrate 50 mg tablet 50 mg PO BID #180 tabs 12/11/24 Unknown Rx cyclobenzaprine 10 mg tablet 10 mg PO TID PRN PRN muscle spas 04/08/25 Unknown History Allergy/AdvReac Type Severity Reaction Status Date / Time metoclopramide (From Reglan) Allergy Severe Anaphylaxis Verified 04/09/25 02:01 coconut Allergy Mild NEEDS Verified 04/09/25 02:01 FOLLOW-UP gabapentin Allergy Rash Verified 04/09/25 02:01 glycerin (From Nasal-Ease) Allergy Swelling Verified 04/09/25 02:01 methylcellulose (From Allergy Swelling Verified 04/09/25 02:01 Nasal-Ease) sertraline (From Zoloft) Allergy Anaphylaxis Verified 04/09/25 02:01 silicone Allergy Rash Verified 04/09/25 02:01 sodium chloride (From Allergy Swelling Verified 04/09/25 02:01 Nasal-Ease) zinc (From Nasal-Ease) Allergy Swelling Verified 04/09/25 02:01 lactose AdvReac Upset Verified 04/09/25 02:01 Stomach Family History Father Anxiety Depression Asthma Hypertension Mother Asthma Diabetes Anxiety Depression CAD (coronary artery disease) Myocardial infarction, Onset Age: 42 Brother Oleksandr-Danlos syndrome Grandmother Myocardial infarction, Onset Age: 41 Grandfather Myocardial infarction, Onset Age: 38 Surgical History History of colonoscopy History of esophagogastroduodenoscopy (EGD) Hx of laparoscopy Social History household members: none Smoking Status: Current every day smoker tobacco type: e-cigarettes Electronic Cigarette Use: with nicotine alcohol intake: current alcohol intake frequency: a few times a month substance use type: marijuana caffeine: Yes Type: carbonated beverages, coffee and tea ROS ROS ED ROS Narrative Pertinent Positives: Drug use sore throat blood around mouth Pertinent Negatives: Trauma fevers chills vomiting diarrhea chest pain shortness of breath The remainder of review of systems negative unless otherwise stated in the HPI above. Systems reviewed including constitutional, psychiatric, cardiovascular, respiratory, integument, HENT, gastrointestinal. EXAM Physical Exam Narrative Exam Narrative: Patient is afebrile hemodynamically stable although tachycardic. Seems like she may have been under the influence of cocaine or methamphetamine. Normal lung sounds oropharynx is completely clear there is no exudates erythema visible lesions. Nothing involving the teeth besides some dental caries that she has. Normal range of motion of her head and neck. Abdomen is soft nontender nondistended intact and equal MSPs in the extremities she was up and ambulatory multiple times she does not have flight of ideas her thoughts do make sense but she is very fidgety Const Vital Signs: 04/09/25 01:58 04/09/25 02:43 04/09/25 03:58 Temperature 98.3 F 98 F Temperature Source Oral Pulse Rate 118 H 86 Respiratory Rate 22 H 16 Respiratory Effort Normal Non-Labored Respiratory Pattern Normal Blood Pressure 147/60 H 135/84 H Blood Pressure Mean 89 101 Pulse Ox 100 100 Oxygen Delivery Method Room Air MDM MDM MDM Narrative Medical decision making narrative: Nursing notes, triage notes, available previous documentation, and vital signs were reviewed. Any discrepancies noted were addressed. Differential Diagnoses: I suspect that she is under the influence of some sort of stimulant such as cocaine or methamphetamine I do not see any oral lesions or wounds or anything else that would cause her bleeding that she was reporting she has no petechiae. Very low suspicion is her being thrombocytopenic not Jesse's angina or angioedema not meningitis Interventions: Ativan Toradol p.o. fluids Labs Reviewed: Not clinically indicated Imaging Reviewed: Not clinically indicated Previous Documentation Reviewed: None available or applicable at this time. ED Course: Patient presenting with symptoms as stated above there is really no physical exam findings she is tachycardic but she is also moving all over the place and seemingly having used either cocaine or possibly methamphetamines as she states that it could have been meth instead. She is not suicidal she is not homicidal this time patient stable for discharge return precautions follow-up recommendations provided as possible she could have a viral pharyngitis although clinically she does not seem to have any evidence to support this this is not strep pharyngitis either. Patient reports that she wants to go home and take Pepcid after getting some Toradol. Return precautions follow-up recommendations provided she stable for discharge. This note was made utilizing voice recognition software. All attempts were made to correct spelling or other errors prior to note completion. However, due to the fast-paced nature of emergency medicine, some errors may still be present. Discharge Plan Triage Chief Complaint: Sore Throat ED Provider: Mack Clarke Dx/Rx/DC Orders Clinical Impression: Sore throat, Substance use, Hx of bipolar disorder Instructions: Addiction: Getting Help Prescriptions: No Action medroxyprogesterone [Depo-Provera] 150 mg/mL suspension 150 mg IM .q10w Patient Comments: INJECT 1ML INTRAMUSCULARILY EVERY 12 WEEKS topiramate 100 mg tablet 100 mg PO QDAY Rx Instructions: Take with 25 mg to = 125 mg daily lamotrigine 50 mg tablet,disintegrating 50 mg PO BID budesonide-formoterol [Symbicort] 80-4.5 mcg/actuation HFA aerosol inhaler 2 puff inhalation BID etodolac 400 mg tablet 400 mg PO BID PRN aripiprazole 10 mg tablet 10 mg PO QDAY Qty: 90 1RF bupropion HCl [Wellbutrin XL] 150 mg tablet extended release 24 hr 150 mg PO QAM Qty: 30 1RF trazodone 100 mg tablet 100 - 200 mg PO QHS Qty: 180 1RF metoprolol tartrate 50 mg tablet 50 mg PO BID Qty: 180 3RF albuterol sulfate 90 mcg/actuation HFA aerosol inhaler 2 puff INHALATION PRN PRN (Reason: Wheezing) Patient Comments: inhale 2 puffs by mouth and INTO THE LUNGS every 4 hours if neede... (REFER TO PRESCRIPTION NOTES). prazosin 1 mg capsule 1 mg PO BID diphenhydramine HCl [Banophen] 25 mg capsule 25 - 50 mg PO DAILY PRN (Reason: itch) epinephrine 0.3 mg/0.3 mL auto-injector 0.3 ml IM UD cyclobenzaprine 10 mg tablet 10 mg PO TID PRN PRN (Reason: muscle spas) Primary Care Provider: Dian Baez NP Referrals: Dian Baez NP, [facility] [Primary Care Provider, Medical] Activity Restrictions/Additional Instructions: Follow-up with your doctor please return if you are having worsening symptoms Print Language: Bur[place]ian Disposition Disposition: Home, Self Care
--- NOTE | 2025-04-12 13:05 | CM.ED ---
Social work SW received a call from Richelle with Crisis (ph: [phone]) at this time requesting information on this patient due to not being able to get in contact with patient after safety planning patient home on 04/08/25. Per Richelle, patient reportedly told Crisis on 04/09/25 around 1730 that patient was not feeling good and was going to be heading into the hospital. Per records, patient did present to [facility] ED again on 04/09/25, but patient left at 0440. This was told to Richelle who thanked JO for the information. Moni Knox, COMMODITIES CLERK, SECURITY EXPERT
== END 2025-04-09 04:40 | disposition home or self-care (01) ==
PROVIDERS: Emergency Provider Specialist/Technologist Athletic Trainer; PCP Nurse Practitioner Family; Visit Provider Specialist/Technologist Athletic Trainer
DX: J02.9 Acute pharyngitis, unspecified (principal); F31.9 Bipolar disorder, unspecified; K21.9 Gastro-esophageal reflux disease without esophagitis; J45.909 Unspecified asthma, uncomplicated; F17.290 Nicotine dependence, other tobacco product, uncomplicated; F19.90 Other psychoactive substance use, unspecified, uncomplicated
CPT/HCPCS: 96372; 99283